=== PATIENT | female | born 1985 | race Caucasian/White ===

== ENCOUNTER 2018-11-23 13:07 | Outpatient (REF) | payer MEDICAID, SELFPAY ==
[2018-11-23 21:30] LABS: HCT 41.6 % (36.0-46.0); Mean Corp. HGB Concentration 33.7 g/dL (32.0-36.0); Mean Corpuscular Hemoglobin 30.8 pg (27.0-33.0); Mean Corpuscular Volume 91.6 fL (80-95); Mean Platelet Volume 10.6 fL (8.0-11.0); Platelet Count 224 x1000/uL (130-400); RBC 4.54 m/cumm (4.00-5.20); RBC Distribution Width 12.6 % (11.7-14.6); White Blood Cell Count 5.98 k/cumm (4.4-10.8)
[2018-11-23 21:57] LABS: ALT 23 U/L (12-78); AST 17 U/L (15-37); Alkaline Phosphatase 56 U/L (46-116); Anion Gap 10.6 mmol/L (3-11); BUN 12 mg/dL (7-18); Bilirubin, Total 0.6 mg/dL (0.2-1.0); CO2 25.4 mmol/L (21.0-32.0); CREATININE 0.74 mg/dL (0.55-1.02); Calcium 9.6 mg/dL (8.5-10.1); Chloride 102 mmol/L (98-107); Glucose 86 mg/dL (70-100); Sodium 138 mmol/L (136-145); Total Protein 7.2 g/dL (6.4-8.2)
== END 2018-11-23 13:27 ==
LOC: NCHCN 13:07
PROVIDERS: PCP Nurse Practitioner Family; Visit Provider Nurse Practitioner Family
DX: Z01.818 Encounter for other preprocedural examination (principal); Z13.228 Encounter for screening for other metabolic disorders; Z13.0 Encounter for screening for diseases of the blood and blood-forming organs and certain disorders involving the immune mechanism
CPT/HCPCS: 80053; 85027

== ENCOUNTER 2019-05-20 15:28 | Outpatient (REF) | payer BC, SELFPAY ==
[2019-05-21 13:40] LABS: Chlamydia Result Negative; GC Result Negative; Specimen Description CERVIX
== END 2019-05-20 15:48 ==
LOC: LBN 15:28
PROVIDERS: PCP Nurse Practitioner Family; Visit Provider Nurse Practitioner Women's Health
DX: Z11.3 Encounter for screening for infections with a predominantly sexual mode of transmission (principal)
CPT/HCPCS: 87491; 87591

== ENCOUNTER 2020-04-26 14:06 | Outpatient (REF) | payer BC, SELFPAY ==
[2020-04-28 13:03] LABS: COVID-19 RT-PCR Result NEGATIVE (Negative)
== END 2020-04-26 14:26 ==
LOC: NCHCN 14:06
PROVIDERS: PCP Nurse Practitioner Family; Visit Provider Nurse Practitioner Family
DX: J06.9 Acute upper respiratory infection, unspecified (principal)
CPT/HCPCS: U0003

== ENCOUNTER 2020-05-18 15:01 | Outpatient (REF) | payer BC, SELFPAY ==
[2020-05-19 13:56] LABS: Chlamydia Result Negative (Negative); GC Result Negative (Negative)
== END 2020-05-18 15:21 ==
LOC: LBN 15:01
PROVIDERS: PCP Nurse Practitioner; Visit Provider Nurse Practitioner Family
DX: R30.0 Dysuria (principal); Z11.3 Encounter for screening for infections with a predominantly sexual mode of transmission
CPT/HCPCS: 87077; 87491; 87591; 87086; 87186

== ENCOUNTER 2020-09-04 00:45 | Outpatient (CLI) | payer BC, SELFPAY ==
--- NOTE | 2020-09-04 | DI.US_ITS ---
EXAM: US PELVIS TRANSVAGINAL CLINICAL HISTORY: H/O EXPELLED 2 IUD'S,IUD COMPLICATION,T83.9XXA. TECHNIQUE: Transabdominal and transvaginal pelvic ultrasound was performed using standard protocol. COMPARISON: US PELVIS TRANSVAG from 06/23/2017 FINDINGS: KIDNEYS: Kidneys are symmetric in size. No evidence of renal calculi. No evidence of hydronephrosis. No renal mass or cyst identified. UTERUS: Findings are suggestive of a subseptate uterus. Position: Anteverted. Size: 7.7 long by 4.0 AP by 6.0 transverse cm Endometrium: 0.6 cm. Normal for patient's menstrual status. No intrauterine device (IUD) is identifie d sonographically. Myometrium: Unremarkable. Cervix: Unremarkable. OVARIES: Right: 4.9 x 2.4 x 2.6 cm Cyst or mass: Small follicular cysts are present. Left: 2.9 x 2 x 1.9 cm Cyst or mass: Small follicular cysts are present. DOPPLER: Color: Symmetric and uniform flow to both ovaries. No hyperemia. CUL-DE-SAC: Free fluid: None. Other: None. IMPRESSION: 1. Normal sonographic appearance of the kidneys. 2. No evidence of an IUD sonographically. 3. Findings suggestive of a subseptate uterus. 4. Unremarkable bilateral ovaries. DATA REPOSITORY:
== END 2020-09-04 01:05 ==
PROVIDERS: PCP Nurse Practitioner; Visit Provider Nurse Practitioner Family
DX: T83.89XA Other specified complication of genitourinary prosthetic devices, implants and grafts, initial encounter (principal); N83.02 Follicular cyst of left ovary; N83.01 Follicular cyst of right ovary
CPT/HCPCS: 76830; 76856

== ENCOUNTER → 2020-11-10 12:10 | Outpatient (REF) | payer BC, SELFPAY ==
--- NOTE | 2020-11-10 11:30 | PAPFT_PTH ---
PATIENT: Naomi Camacho LOC: [facility] U#:[id number] AGE/SX: 39/F ROOM: RE11/10/[address]: GUERRERO HendricksP : 1985 BED: DIS: SPEC #: [id number] RECD: 11/10/20 13:10 STATUS: MALLIKA REQ #: [id number] SRIRAM: 11/10/20 11:[address]: Gabriela Mock DEPT: [facility] Cytology RECD BY: Yasmine Diehl ENTERED: 11/10/20 13:10 SP TYPE: PAPFT OTHR DR: Susie Khan Tissues: 1 - CX/ENDOCX FOR PAP SMEARS Procedures: PAP THIN PREP/UVM Screening HPV DNA PROBE Comments: [id number]
[2020-11-13 14:59] LABS: Chlamydia Result Negative (Negative); GC Result Negative (Negative)
== END ==
LOC: LBN 12:10
PROVIDERS: PCP Nurse Practitioner; Visit Provider Nurse Practitioner Family
DX: Z11.3 Encounter for screening for infections with a predominantly sexual mode of transmission (principal); Z12.4 Encounter for screening for malignant neoplasm of cervix; Z11.51 Encounter for screening for human papillomavirus (HPV); R87.810 Cervical high risk human papillomavirus (HPV) DNA test positive
CPT/HCPCS: 87491; 87591; 88142; 87624

== ENCOUNTER 2021-01-16 16:38 | Outpatient (REF) | payer BC, SELFPAY ==
--- NOTE | 2021-01-16 14:25 | ENDOMET_PTH ---
PATIENT: Naomi Camacho LOC: [facility] U#:[id number] AGE/SX: 35/F ROOM: RE01/16/[address]: Yvonne Burnham DO : 1985 BED: DIS: 01/16/2021 SPEC #: [id number] RECD: 01/16/21 17:34 STATUS: MALLIKA REQ #: [id number] SRIRAM: 01/16/21 14:[address]: Yvonne Burnham DEPT: Surgical Specimen RECD BY: Yasmine Diehl ENTERED: 01/16/21 17:34 SP TYPE: Endomet OTHR DR: Susie Khan Tissues: 1 - ENDOMETRIUM BX/KEILA Procedures: GROSS AND MICRO LEVEL 4 Comments: [id number]
== END 2021-01-16 16:39 | disposition home or self-care (01) ==
LOC: LBN 16:38
PROVIDERS: PCP Nurse Practitioner; Visit Provider Obstetrics & Gynecology
DX: N85.8 Other specified noninflammatory disorders of uterus (principal); N93.8 Other specified abnormal uterine and vaginal bleeding
CPT/HCPCS: 88305

== ENCOUNTER 2021-02-19 03:20 | Outpatient (CLI) | payer BC, SELFPAY ==
[2021-02-19 12:35] LABS: Source Nasal/Nares
[2021-02-19 18:34] LABS: COVID-19 PCR Negative (Negative)
== END 2021-02-19 03:21 | disposition home or self-care (01) ==
LOC: LBO 03:20
PROVIDERS: PCP Nurse Practitioner; Visit Provider Obstetrics & Gynecology
DX: Z20.822 Contact with and (suspected) exposure to COVID-19 (principal); Z01.818 Encounter for other preprocedural examination
CPT/HCPCS: 87635

== ENCOUNTER 2021-02-19 04:30 | Outpatient (CLI) | payer BC, SELFPAY ==
[2021-02-19 11:16] LABS: Abs Immature Grans 0.03 10^3/uL (0.0-0.06); Absolute Basophil Count 0.03 10^3/uL (0.0-0.2); Absolute Eosinophil Count 0.21 10^3/uL (0.0-0.7); Absolute Lymphocyte Count 2.57 10^3/uL (1.2-3.4); Absolute Neutrophil Count 3.06 10^3/uL (1.2-6.7); Basophils % 0.5; Eosinophils % 3.2; HCT 38.6 % (36.0-46.0); HGB 13.2 g/dL (11.2-15.7); Immature Grans % 0.5; Lymphocytes % 38.9; MCH 30.6 pg (27.0-33.0); MCHC 34.2 % (32.0-36.0); MCV 89.4 fL (80-95); MPV 9.3 fL (8.0-11.0); Monocytes % 10.6; Neutrophils % 46.3; Nucleated RBC 0 %; Platelet Count 290 10^3/uL (130-400); RBC 4.32 10^6/uL (3.93-5.22); RDW 11.9 % (11.7-14.6); RDW-SD 39.2 fL
== END 2021-02-19 04:31 | disposition home or self-care (01) ==
LOC: LBO 04:30
PROVIDERS: PCP Nurse Practitioner; Visit Provider Obstetrics & Gynecology
DX: N93.8 Other specified abnormal uterine and vaginal bleeding (principal); Z01.818 Encounter for other preprocedural examination; Z01.812 Encounter for preprocedural laboratory examination
CPT/HCPCS: 36415; 86850; 86900; 86901; 85025

== ENCOUNTER 2021-02-21 10:15 | Inpatient (IN) | payer BC, SELFPAY ==
[2021-02-21] VITALS (17 sets, daily range): BP systolic 91–117; BP diastolic 55–79; PULSE 67–84; RESP 12–18; TEMP 36.2–37.1; O2SAT 95–99
[2021-02-21] MEDS: Lactated Ringers 1,000 ML 125 ML IV ×3 (07:05→18:08)
[2021-02-21] MEDS: CLINDAMYCIN 900 MG/50 ML BAG 50 MG IVPB (07:10)
[2021-02-21] MEDS: Bupivacaine 0.5% Pres-Free 30 ML VIAL (08:15)
--- NOTE | 2021-02-21 09:35 | UTER_PTH ---
PATIENT: Naomi Camacho LOC: U#:[id number] AGE/SX: 35/F ROOM: RE02/21/[address]: Yvonne Burnham DO : 1985 BED: A DIS: 02/22/2021 SPEC #: [id number] RECD: 02/21/21 12:51 STATUS: MALLIKA REQ #: [id number] SRIRAM: 02/21/21 09:[address]: Yvonne Burnham DEPT: Surgical Specimen RECD BY: Yasmine Diehl ENTERED: 02/21/21 12:52 SP TYPE: UTER OTHR DR: Susie Khan Tissues: 1 - UTERUS W OR W/O OVARIES(NOT TUMOR/PROLAPSE) Procedures: GROSS AND MICRO LEVEL 5 Comments: [id number]
--- NOTE | 2021-02-21 10:18 | ROE_ITS ---
Date of service: 02/21/21 Time of Service: 10:18 Operative Note Operative Note DATE OF PROCEDURE: 02/21/21 PRE-OP DIAGNOSIS: Dysfunctional uterine bleeding, nonresponsive to medical therapy POST-OP DIAGNOSIS: same PROCEDURE: Laparoscopically assisted vaginal hysterectomy with bilateral salpingectomy. Cystoscopy SURGEON: Yvonne Burnham ASSISTING SURGEON: Janna Starr ANESTHESIA TYPE: General LMA/ETT and Spinal Refer to Anesthesia Record ESTIMATED BLOOD LOSS: 100 PATHOLOGY: other (Portion of bilateral fallopian tubes, uterus, cervix) COMPLICATIONS: None Patient was transported to: PACU Patient's condition: stable Indications: Ongoing heavy menstrual bleeding, nonresponsive to medical therapy. Unable to be controlled with hormonal therapy. Cannot retain intrauterine device due to subseptate uterus Findings: Small, freely mobile, midline uterus that is somewhat boggy in nature. Normal-appearing fallopian tubes with evidence of previous tubal ligation. Normal-appearing ovaries bilaterally. Inclusion cyst at the vesicouterine peritoneum. Normal postoperative cystoscopy without evidence of injury to bladder, with ureters functioning appropriately Procedure Description: Patient is a 35-year-old female with ongoing abnormal uterine bleeding. She had a full thorough evaluation which included Pap smear which was normal and endometrial sampling also normal. This is been an ongoing issue for her and she request definitive therapy. The risk benefits alternatives of surgery were explained to the patient including risk of infection, bleeding, injury to surrounding organs, risk of anesthesia, need for open laparotomy. Full informed consent has been obtained. She is taken the operating suite with IV running where she is placed in the seated position and spinal anesthesia administered for postoperative pain control via intrathecal narcotics. She is then placed in dorsal supine position and endotracheal intubation performed for the administration of general anesthesia with ease. At this point she was placed in the modified dorsal lithotomy position in [facility] and prepped and draped in the usual sterile fashion. Exam under anesthesia revealed a uterus that was midline and mobile.. PAS stockings had been placed. Boston catheter was inserted for continuous bladder drainage. Weighted speculum was inserted to the posterior vaginal vault and a single-tooth tenaculum used to grasp the anterior lip of the cervix. Cervical os dilated VS found to 6 cm and a ZUMI uterine manipulator placed. Tenaculum and speculum were then both removed and attention was turned to the abdomen. Due to her previous abdominal plasty. Her umbilicus had been created. The superior edge of her umbilical incision was incised and intra- abdominal wall elevated. A varies needle was inserted directly into the abdomen for insufflation with CO2 gas to a maximum pressure of 15 mmHg. At this point a bladeless Optiview trocar was placed into the abdomen. Abdomen was found to be atraumatic. Uterus tubes and ovaries were visualized. At this point after infiltration of Marcaine in the right and left lower quadrant a second and third 5 mm trocar site were placed under direct visualization. At this point the uterus was elevated and portion of the left fallopian tube remnant was cautery transected and removed from the abdomen. The left round ligament was cautery transected and ligated allowing closure of the broad ligament. The utero- ovarian pedicle was identified clamped and cautery transected. The bladder flap was created with meticulous sharp dissection and vesicouterine peritoneum moved away from the lower uterine segment. There was noted to be a small inclusion cyst which was removed from the vesicouterine peritoneum in the anterior lateral position. At this point the uterine artery and vein were also cautery transected to assist in hemostasis. A elevator was used to elevate the portion of the remnant of the right fallopian tube which again was cautery transected and ligated and removed from the abdomen. Similar procedure was carried out on the right round ligament allowing access to the right broad ligament along with the right utero-ovarian ligament which was cautery transected and again ligated. The remainder of the vesicouterine peritoneum on the anterior portion of the broad ligament was sharply dissected away from the lower uterine segment. At this point all pedicles were inspected and found to be hemostatic and attention was turned to the vaginal vault. CO2 gas was released and weighted speculum placed in the posterior vaginal vault. Single-tooth tenaculum used to grasp the anterior lip of the cervix and Doe clamps were used to grasp the anterior and posterior lip of the cervix. At this point in a circumferential fashion with a Bovie cautery an incision was made. The posterior cul-de-sac was then entered sharply with a longbilled weighted speculum placed within. The right and left uterosacral cardinal complexes were grasped transected and suture ligated. Attention was then turned to the anterior cul-de-sac which was meticulously sharp sharply dissected and allowing entry to the anterior cul-de-sac. The remainder of the uterine pedicles were systematically grasped with Zeppelin clamps transected and ligated. This allowed delivery of the uterus and cervix through the vaginal vault. Pedicles were inspected and found to be hemostatic and the vaginal cuff was then closed in a horizontal fashion with 0 Vicryl suture in a running locked fashion and found to be hemostatic. Attention was returned to the abdomen at this point and abdomen irrigated with copious amounts of normal saline. All pedicles were found to be hemostatic. Ureters were identified and peristalsing appropriately. The hysterectomy portion of the procedure was terminated patient did receive 1 dose of indigo carmine and cystoscopy performed. There is no evidence of trauma or injury to the bladder. Both ureteric orifice ease had jets of blue urine functioning appropriately. Upon visualization of the. Procedure was terminated. The infraumbilical fascial incision was closed using 0 Vicryl suture in a simple interrupted fashion. Skin edges were reapproximated with 4-0 Monocryl in a subcuticular fashion and sterile dressings were placed. Patient was returned to the dorsal supine position and awoken anesthesia with ease. She had Boston catheter in place draining blue urine. EBL: 100 mL Complications: None apparent Findings: Small, boggy globular uterus consistent with adenomyosis. Remnants of normal-appearing fallopian tubes bilaterally. Normal ovaries bilaterally. Inclusion cyst of the anterior vesicouterine peritoneum which had been removed. Pathology: Cervix, uterus, portion of bilateral fallopian tubes.
[2021-02-21] MEDS: Normal Saline Flush 10 ML SYR IV ×3 (12:51→23:31)
[2021-02-21] MEDS: Ketorolac 15 MG/ML VIAL IVP ×3 (12:51→23:31)
--- NOTE | 2021-02-21 15:47 | W.PM.PROGNOT ---
Date of Service Date of service: 02/21/21 Time of Service: 15:47 Assessment and Plan Assessment and plan (1) S/P laparoscopic assisted vaginal hysterectomy (LAVH): Status: Acute Assessment and plan: Postoperative day 0 status post laparoscopically assisted vaginal hysterectomy with bilateral salpingectomy. Doing well. Anticipate normal postoperative course. CBC in the morning. Advance diet. Boston out this evening. Increase activity. Pain control as necessary. Anticipate discharge home tomorrow Subjective Subjective Patient reports: no new complaints and afebrile; denies flatus, vomiting and shortness of breath Interval history since last seen: Patient seen postoperative day #0. Her surgery went well this morning. We spent approximately 20 minutes discussing the findings, and surgical procedure. Her pain is well controlled. Boston catheter is in place. Vital signs are stable. Her appetite is good. Exam Const General: cooperative, healthy appearing, comfortable and no acute distress Eyes General: appearance normal, both eyes and all related structures Resp Effort & Inspection: normal respiratory effort Cardio Rate: regular rate Rhythm: regular rhythm GI Inspection: normal to inspection Palpation: soft Objective Last Vital Signs Temp 97.7 F 02/21/21 15:06 Pulse 76 02/21/21 15:06 Resp 16 02/21/21 15:06 BP 108/72 02/21/21 15:06 Pulse Ox 98 02/21/21 15:06
[2021-02-21] MEDS: Docusate Sodium 100 MG CAP PO (20:34)
[2021-02-21] MEDS: oxyCODONE 5 mg/Acetaminophen 325 mg TAB PO (23:31)
[2021-02-22] MEDS: Lactated Ringers 1,000 ML 125 ML IV (02:01)
[2021-02-22] MEDS: oxyCODONE 5 mg/Acetaminophen 325 mg TAB PO (04:12)
[2021-02-22 04:15] VITALS: BP 102/69; PULSE 72; RESP 16; TEMP 37; O2SAT 95
[2021-02-22] MEDS: Normal Saline Flush 10 ML SYR IV (06:13)
[2021-02-22] MEDS: Ketorolac 15 MG/ML VIAL IVP (06:14)
[2021-02-22 07:07] VITALS: BP 99/63; PULSE 69; RESP 17; TEMP 36.9; O2SAT 96
[2021-02-22 07:17] LABS: Abs Immature Grans 0.02 10^3/uL (0.0-0.06); Absolute Basophil Count 0.02 10^3/uL (0.0-0.2); Absolute Eosinophil Count 0.06 10^3/uL (0.0-0.7); Absolute Lymphocyte Count 3.22 10^3/uL (1.2-3.4); Absolute Monocyte Count 0.83 10^3/uL (0.1-0.8); Absolute Neutrophil Count 5.58 10^3/uL (1.2-6.7); Basophils % 0.2; Eosinophils % 0.6; HCT 32.6 % (36.0-46.0); HGB 11.1 g/dL (11.2-15.7); Immature Grans % 0.2; Lymphocytes % 33.1; MCV 91.1 fL (80-95); MPV 9.8 fL (8.0-11.0); Monocytes % 8.5; Neutrophils % 57.4; Nucleated RBC 0 %; Platelet Count 251 10^3/uL (130-400); RBC 3.58 10^6/uL (3.93-5.22); RDW-SD 40.3 fL; WBC 9.73 10^3/uL (4.4-10.8)
[2021-02-22] MEDS: Docusate Sodium 100 MG CAP PO (08:30)
--- NOTE | 2021-02-22 09:17 | W.PM.PROGNOT ---
Date of Service Date of service: 02/22/21 Time of Service: 09:17 Assessment and Plan Assessment and plan (1) S/P laparoscopic assisted vaginal hysterectomy (LAVH): Status: Acute Assessment and plan: Postoperative Status post laparoscopically assisted vaginal hysterectomy with bilateral salpingectomy. Doing well. Stable vital signs. Stable hemoglobin. Tolerating a regular diet and oral pain medication. Discharge home today. Subjective Subjective Patient reports: pain is less, tolerating a regular diet, voiding w/o difficulty and flatus; denies nausea, vomiting, shortness of breath and fever Interval history since last seen: Patient seen and examined postoperative day #1. She has been ambulating. Boston catheter has been out. Her pain is slightly increased after spinal anesthesia has worn off though well controlled with both Motrin and Percocet. She has been voiding without difficulty and tolerating regular diet. She is ready for discharge home today. Exam Const General: cooperative, healthy appearing, comfortable and no acute distress Eyes General: appearance normal, both eyes and all related structures Resp Effort & Inspection: normal respiratory effort Cardio Rate: regular rate Rhythm: regular rhythm GI Inspection: normal to inspection and incision (Clean dry intact, Band-Aids in place.) Palpation: not firm, no guarding, no masses and tender (Mild postoperative tenderness) Auscultation: normal bowel sounds Skin General skin exam: no rashes or lesions noted Extrem General: no clubbing, cyanosis or edema and no calf tenderness Objective Last Vital Signs Temp 98.4 F 02/22/21 07:07 Pulse 69 02/22/21 07:07 Resp 17 02/22/21 07:07 BP 99/63 L 02/22/21 07:07 Pulse Ox 96 02/22/21 07:07 Laboratory Results - last 24 hr 02/22/21 06:15 WBC 9.73 RBC 3.58 L Hgb 11.1 L D Hct 32.6 L MCV 91.1 MCH 31.0 MCHC 34.0 RDW 12.0 Plt Count 251 MPV 9.8 Immature Gran % 0.2 Neutrophils % 57.4 Lymphocytes % 33.1 Monocytes % 8.5 Eosinophils % 0.6 Basophils % 0.2 Nucleated RBC % 0 Absolute Neutrophils 5.58 Absolute Lymphocytes 3.22 Absolute Monocytes 0.83 H Absolute Eosinophils 0.06 Absolute Basophils 0.02
--- NOTE | 2021-02-22 09:24 | DSE_ITS ---
Date of service: 02/22/21 Time of Service: 09:25 DS: Diagnosis Discharge Diagnosis (1) S/P laparoscopic assisted vaginal hysterectomy (LAVH): Status: Acute Discharge Plan Disposition Patient Disposition: HOME Condition: Good Discharge Details Reason For Visit: LAVH Admit Date/Time: 02/21/21 10:15 Admit Provider: Yvonne Burnham Attending Provider: Yvonne Burnham Primary Care Provider: Susie Khan Hospital Course Hospital Course: Patient underwent laparoscopically assisted vaginal hysterectomy with bilateral salpingectomy. Her intraoperative course was uncomplicated. Cystoscopy performed to confirm bladder integrity and appropriate urinary jets of the ureteric orifice ease. She had uncomplicated postoperative course. She is d ischarged home postoperative day #1, ambulating, tolerating regular diet and oral pain medication with stable vital signs. Home Meds and New Rx's Prescriptions: New oxycodone-acetaminophen 5-325 mg Tablet 1 tab PO Q4H PRN PRNQty: 12 RF: 0 docusate sodium [Colace] 100 mg Capsule 100 mg PO BID Qty: 30 RF: 0 ibuprofen [IBU] 600 mg Tablet 600 mg PO Q6H PRN PRNQty: 40 RF: 0 Continued metformin [Glucophage] 500 MG tablet 1,000 mg PO BID Qty: 360 RF: 3 Citalopram Hydrobromide [Citalopram HBr] 10 MG tablet 20 mg PO DAILY Qty: 14 RF: 0 Discontinued norgestimate-ethinyl estradiol [Sprintec (28)] 0.25-35 mg-mcg tablet 1 tab PO DAILY Qty: 84 RF: 3 multivitamin 1 EACH capsule 1 ea PO DAILY RF: 0 Discharge Instructions Additional Instructions: Pelvic rest. No lifting greater than 10 pounds for 6 weeks Stand Alone Forms: DSU Post Gynecology Surgery Activity:: Activity as Tolerated Equipment/Supplies:: No Equipment Needed Diet:: As Tolerated Discharge Orders Discharge Orders: Discharge Order (Routine); Ordered 02/22/21 Ordered By: Yvonne Burnham DS: Summary Time Spent with Patient providing and/or coordinating discharge services: Less than 30 minutes Status at Discharge Functional status at discharge: independent ambulation Overall status at discharge: patient is progressing back to baseline Mental Status: mental status grossly normal Speech and Movement: speech and movement normal Mood: congruent mood Affect: normal affect Exam Narrative Exam Narrative: See physical exam from progress note dated 02/22/2021 Psych Mental Status: mental status grossly normal Speech and Movement: speech and movement normal Mood: congruent mood Affect: normal affect DS: Data Vitals/I&O Vitals and I&O: Vital Signs Temperature 98.4 F 02/22/21 07:07 Temperature Source Tympanic 02/22/21 07:07 Pulse 69 02/22/21 07:07 Pulse Rhythm Regular 02/22/21 07:24 Respiratory Rate 17 02/22/21 07:07 Respiratory Effort 02/22/21 07:24 Respiratory Depth Normal 02/22/21 07:24 Respiratory Pattern Normal 02/22/21 07:24 Blood Pressure 99/63 L 02/22/21 07:07 Pulse Oximetry 96 02/22/21 07:07 Respiratory End-tidal CO2 39 02/21/21 10:43 Oxygen Delivery Method Room Air 02/22/21 07:07 Oxygen Flow Rate 0 02/22/21 07:07 Pain Level 2 02/22/21 07:31 Intake & Output 02/21/21 02/21/21 02/22/21 11:59 23:59 11:59 Intake Total 820 / 1230 410 / 1230 1895.834 / 1895.834 Output Total 950 / 3850 2900 / 3850 1250 / 1250 Balance -130 / -2620 -2490 / -2620 645.834 / 645.834 Weight 170 lb 10.205 oz Intake: IV 750 / 760 10 / 760 1795.834 / 1795.834 Oral 70 / 470 400 / 470 100 / 100 Output: Urine 750 / 3650 2900 / 3650 1250 / 1250 Estimated Blood Loss 200 / 200 Other: Urine Color Indigo Yellow Pale Yellow Urine Appearance Clear Clear Clear Urine Odor Normal Normal Comment pt stated slight burning at the start of voiding after barr out Emesis Description None Voiding Methods Toilet Toilet Data Completed and Pending Labs on day of discharge: Labs from last 24 hours 02/22/21 06:15 WBC 9.73 RBC 3.58 L Hgb 11.1 L D Hct 32.6 L MCV 91.1 MCH 31.0 MCHC 34.0 RDW 12.0 Plt Count 251 MPV 9.8 Immature Gran % 0.2 Neutrophils % 57.4 Lymphocytes % 33.1 Monocytes % 8.5 Eosinophils % 0.6 Basophils % 0.2 Nucleated RBC % 0 Absolute Neutrophils 5.58 Absolute Lymphocytes 3.22 Absolute Monocytes 0.83 H Absolute Eosinophils 0.06 Absolute Basophils 0.02 PFSH Medical History Abnormal uterine bleeding Diabetes History of PCOS Surgical History H/O abdominoplasty History of tonsillectomy Previous section (08/25/14) 3 previous c/s, pt for R LTCS S/P laparoscopic assisted vaginal hysterectomy (LAVH) Family History Mother Hyperlipidemia Hypertension Maternal Aunt Brain cancer Metastasized from cervix - at 42 Social History Smoking/Tobacco Use Status: Never Smoking risk assessment performed?: Yes Alcohol Intake: current Alcohol Intake frequency: holidays/special occasions only Alcohol type: wine Drug use: Never Substance use type: does not use Details: alcohol: > 30 days Do you feel safe at home: Yes Do you feel safe in your relationship?: Yes Female Reproductive History Menstrual control method: permanent sterilization History History 5 Para 3 Hx # Term Pregnancies Multiple births Hx # Pregnancies Ectopic pregnancies AB induced Hx Number of Living Children AB spontaneous
== END 2021-02-22 10:16 | disposition home or self-care (01) | DRG 743 ==
LOC: MS 11:43
PROVIDERS: Admitting Provider Obstetrics & Gynecology; PCP Nurse Practitioner; Visit Provider Obstetrics & Gynecology
PROC: 0UT9FZZ Resection of Uterus, Via Natural or Artificial Opening With Percutaneous Endoscopic Assistance (ICD-10-PCS; CPT 58552; principal; 2021-02-21 07:30)
DX: N93.9 Abnormal uterine and vaginal bleeding, unspecified (principal); D25.0 Submucous leiomyoma of uterus; Q51.3 Bicornate uterus; E28.2 Polycystic ovarian syndrome
CPT/HCPCS: 58552; 52000; 36415; 81025; 99232; 99238; 85025; 88307; J1100; J1885; J2001; J2250; J2405; J2704; J3010

== ENCOUNTER 2022-05-22 11:21 | Outpatient (REF) | payer BC, SELFPAY ==
[2022-05-22 15:52] LABS: ALT 15 U/L (14-59); AST 14 U/L (15-37); Albumin 4.1 g/dL (3.4-5.0); Alkaline Phosphatase 54 U/L (46-116); BUN 12 mg/dL (7-18); Bilirubin, Total 0.3 mg/dL (0.2-1.0); CREATININE 0.7 mg/dL (0.55-1.02); Calcium 8.7 mg/dL (8.5-10.1); Calculated LDL 137 mg/dL (<100); Chloride 103 mmol/L (98-107); Cholesterol 211 mg/dL (<200); Glucose 92 mg/dL (74-106); HDL Cholesterol 65 mg/dL (40-60); Potassium 4.1 mmol/L (3.5-5.1); Sodium 137 mmol/L (136-145); TSH (W/Ref FT4) 1.54 uIU/mL (0.36-3.74); Total Protein 7.2 g/dL (6.4-8.2); Triglyceride 49 mg/dL (<150)
== END 2022-05-22 11:22 | disposition home or self-care (01) ==
LOC: NCHCN 11:21
PROVIDERS: PCP Nurse Practitioner; Visit Provider Nurse Practitioner Family
DX: Z00.00 Encounter for general adult medical examination without abnormal findings (principal); E28.2 Polycystic ovarian syndrome; Z86.32 Personal history of gestational diabetes; Z13.220 Encounter for screening for lipoid disorders
CPT/HCPCS: 80053; 80061; 84443

== ENCOUNTER 2024-07-01 22:34 | Outpatient (REF) | payer BC, SELFPAY ==
[2024-07-01 16:57] LABS: Abs Immature Grans 0.02 10^3/uL (0.0-0.06); Absolute Basophil Count 0.05 10^3/uL (0.0-0.2); Absolute Eosinophil Count 0.12 10^3/uL (0.0-0.7); Absolute Lymphocyte Count 2.16 10^3/uL (1.2-3.4); Absolute Monocyte Count 0.64 10^3/uL (0.1-0.8); Absolute Neutrophil Count 3.37 10^3/uL (1.2-6.7); Basophils % 0.8 %; Eosinophils % 1.9 %; HCT 42.8 % (36.0-46.0); HGB 14.5 g/dL (11.2-15.7); Immature Grans % 0.3 %; MCHC 33.9 % (32.0-36.0); MCV 92 fL (80-95); MPV 10.5 fL (8.0-11.0); Monocytes % 10.1 %; Neutrophils % 52.9 %; Platelet Count 252 10^3/uL (130-400); RBC 4.68 10^6/uL (3.93-5.22); RDW-SD 40.3 fL; WBC 6.36 10^3/uL (4.4-10.8)
[2024-07-01 17:53] LABS: Hemoglobin A1C 5.3 % (<5.7)
[2024-07-01 18:02] LABS: ALT 23 U/L (14-59); AST 12 U/L (15-37); Albumin 4.1 g/dL (3.4-5.0); Alkaline Phosphatase 53 U/L (46-116); Anion Gap 8.7 mmol/L (3-11); BUN 9 mg/dL (7-18); Bilirubin, Total 0.35 mg/dL (0.2-1.0); CO2 26.3 mmol/L (21.0-32.0); CREATININE 0.8 mg/dL (0.55-1.02); Calcium 8.7 mg/dL (8.5-10.1); Calculated LDL 122 mg/dL (<100); Chloride 105 mmol/L (98-107); Cholesterol 196 mg/dL (<200); Estimated GFR 96.06 (mL/min/1.73m2); Glucose 98 mg/dL (74-106); HDL Cholesterol 61 mg/dL (40-60); Potassium 4.1 mmol/L (3.5-5.1); Sodium 140 mmol/L (136-145); TSH (W/Ref FT4) 1.61 uIU/mL (0.36-3.74); Total Protein 7.2 g/dL (6.4-8.2); Triglyceride 68 mg/dL (<150); Vitamin B12 246 pg/mL (193-986); Vitamin D 25 Total 23.7 ng/mL (30-100)
--- OUTSIDE RECORDS SUMMARY | 2024-07-01 22:37 | XMS_ITS | Encounter Summary ---
Author Organization [facility] Address [address] [place] [id number] Care Team Providers Care Car Coupler Name Role Phone Unavailable Primary Care Provider Unavailabl e Encounter Details Date Type Department Care Team (Late st Contact Info) Description 05/12/2009 Orders Only [facility] Laboratory Services - [facility] [place] [place] [address], [place] [id number] Chico Bermudez MD [address] [place] [phone] Social History Tobacco Use Types Packs/Day Years Used Date Smoking Tobacco: Never Assessed Sex and Gender Information Value Date Recorded Sex Assigned at Not on file Gender Identity Not on file Sexual Orientation Not on file documented as of this encounter Plan of Treatment Not on file documented as of this encounter Procedures Procedure Name Priority Date/Time Associated Diagnosis Comments CYTOPATHOLOGY Routine 05/12/2009 0:00 EDT documented in this encounter Results * CYTOPATHOLOGY (05/12/2009 0:00 EDT) Pathology Report: CYTOPATHOLOGY REPORT ? Reports generated via electronic interface contain original data; ? however they are lacking the format of the original report. ? Caution should be taken when reading/interpreti ng unformatted reports. ? Name: ? MARTINEZ CAMACHO ? Accession #: ? [id number] ? : ? 1985 (Age: 23) ??F ?Collect Date: ? 05/12/2009 ? Location: ? [facility] ? Receive Date: ? 05/15/2009 ? Provider: ?CHICO BERMUDEZ MD ? Copy to: ? Specimen/Source: ?Pap Test, Cervix/Endocervix, ThinPrep Imaging System ? with manual evaluation ? Last Menstrual Period: ? 11/08 ? Other: ? HPVA - HPV testing requested if ASC-US on the current ThinPrep Pap test. ? SPECIMEN ADEQUACY ? Satisfactory for Evaluation ? - transformation zone component present ? GENERAL CATEGORIZATION ? Negative for Intraepithelial Lesion or Malignancy ? Document reviewed and electronically signed by: ? Kirsten Morales, SCT(ASCP) ? Report Date: ??05/18/2009 10:58 ? End of Report ? LUCINDA YOUNG 05/12/2009 05/15/2009 Chico Bermudez MD PATHOLOGY ORDERABLES LUCINDA YOUNG [address] [place] [address] documented in this encounter Visit Diagnoses Not on filedocumented in this encounter
--- OUTSIDE RECORDS SUMMARY | 2024-07-01 22:37 | XMS_ITS | Encounter Summary ---
Author Organization [facility] [place] [address] Care Team Providers Care Wire Mesh Gate Assembler Name Role Phone Megan Hayes APRN Primary Care Provider [phone] Reason for Visit * Auth/Cert Specialty Diagnoses / Procedures Referred By Omid funez Referred To Contact Diagnoses panni Procedures PRO SUCT ABHILASH LIPECTOMY, TRUNK PRO EXCISE EXCESS SKIN TISSUE, ABDOMEN, ADD-ON SUCTION ASSISTED LIPECTOMY,TRUNK (WRVU *) ABDOMINOPLASTY EXC,W/ UMBILICAL TRANSPOSITION, FASCIAL PLICATION (WRVU 17.04) Referral ID Status Reason Start Date Expiration Date Visits Re quested Visits Authorized [id number] 1 1 Encounter Details Date Type Department Care Team (Late st Contact Info) Description 2018 7:30 AM EST - 2018 10:58 AM EST Surgery [place] [id number] Otto Alexander MD [facility] [place] [address] SUCTION ASSISTED LIPECTOMY,TRUNK (WRVU 4.95) Social History Tobacco Use Types Packs/Day Years Used Date Smoking Tobacco: Never Smokeless Tobacco: Never Alcohol Use Standard Drinks/Week Comments Yes 7 (1 standard drink = 0.6 oz pur e alcohol) not while Sex and Gender Information Value Date Recorded Sex Assigned at Not on file Gender Identity Not on file Sexual Orientation Not on file documented as of this encounter Last Filed Vital Signs Vital Sign Reading Time Taken Comments Blood Pressure 110/75 2018 10:54 AM EST Pulse 75 2018 6:34 AM EST Temperature 36.8 ??C (98.2 ??F) 2018 1 0:54 AM EST Respiratory Rate 18 2018 10:5 4 AM EST Oxygen Saturation 100% 2018 10: 54 AM EST Inhaled Oxygen Concentration - - Weight 81.1 kg (178 lb 12.7 oz) 2018 6:34 AM EST Height 170.2 cm (5' 7) 2018 6:34 AM EST Body Mass Index 28 2018 6:34 AM EST documented in this encounter Discharge Summaries * Raisa Kyle PA - 2018 2:30 PM EST Images from the original note were not included. Plastic Surgery Service Inpatient Discharge Summary Patient Name: Spring Camacho Patient Age: 33 y.o. : 1985 Attending Physician: Otto Alexander MD Date of Admission: 2018 Date of Discharge: Code Status: 12/29/2018 Full Code Primary Diagnosis: Active Hospital Problems Diagnosis ??? Abdominal pannus Resolved Hospital Problems No resolved problems to display. History: History obtained through patient interview, review of relevant records, and/or discussion with referring provider. The following was taken from a Plastic Surgery Clinic Consult Note by Dr. Alexander on 09/28/18: Spring Camacho is a 32 y.o. woman seen in our office today for a possible breast mastopexy and abdominoplasty. She is unaccompanied for today's visit. She has been thinking about breast mastopexy for many years but has decided to proceed with surgical planning now because she has lost 105 pounds and feels ready to proceed with surgery. She lost this weight after adjusting her diet and exercise regimen. She reports being generally happy with her breast volume but would like her shape to be better. Her current weight has been stable for several months. She currently weighs 177 pounds. She hadanother consultation at [facility] about a year ago, but did not feel ready to proceed with surgery at that time. She has breast fed three children and has had five pregnancies. She feels her breasts have become more deflated and have descended after her pregnancies. She denies any abdominal bulging. ?? She has never had a mammogram. She has no known family history of breast cancer. She denies any breast masses or lumps. ?? She takes metformin and spironolactone for PCOS. She does not smoke, and drinks occasionally socially. 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 She has four adopted children. Recommendations: Breast mastopexy and abdominoplasty. We also discussed liposuction to her flanks. ?? The procedure of abdominoplasty was discussed and the resulting scars (transverse and periumbilical) were reviewed. We talked about complications of numbness, infection, hematoma, seroma, asymmetry, need for scar revision and delayed wound healing. We also discussed the additional risks of liposuction, which include irregularities of the skin, risk of skin loss, risk of blood clots or pulmonary complications. She was provided [facility] brochures and informed consent documents on both procedures. Chapo get her pricing information and proceed to book her in the main operating room if she wishes to proceed. If she has additional questions that arise I would be happy to see her again in the office. ?? However, I believe that her expectations are quite realistic. Past Medical History Past Medical History: Diagnosis Date ??? Depression with anxiety ??? Gestational diabetes ??? PCOS (polycystic ovarian syndrome) ??? hemorrhage 03/04/2015 At time of rCS and BTL, EBL 1000 ml ??? Septate uterus ??? Varicella Past Surgical History Past Surgical History: Procedure Laterality Date ??? SECTION x2 ??? DILATION AND CURETTAGE OF UTERUS x2 ??? PRO DELIVERY ONLY Bilateral 03/01/2015 @ DELIVERY performed by Griselda Willson MD at [facility] ??? PRO EXCISE EXCESS SKIN TISSUE, ABDOMEN, ADD-ON N/A 2018 ABDOMINOPLASTY EXC,W/ UMBILICAL TRANSPOSITION, FASCIAL PLICATION (WRVU 17.04) performed by Otto Alexander MD at [facility] ??? PRO LIGATE FALLOPIAN TUBE, N/A 03/01/2015 @FALLOPIAN TUBE(S), TRANSECTION OR LIGATION, ABD APPROACH, POST- performed by Griselda Willson MD at [facility] ??? PRO SUCT ABHILASH LIPECTOMY, TRUNK N/A 2018 SUCTION ASSISTED LIPECTOMY,TRUNK (WRVU *) performed by Otto Alexander MD at [facility] ??? TONSILLECTOMY AND ADENOIDECTOMY 2012 Procedures: 2018 Surgeon(s) and Role: * Otto Alexander MD - Primary * Nic Poe MD - Resident-Surgeon Napoleon: Procedure(s): SUCTION ASSISTED LIPECTOMY,TRUNK (WRVU *) ABDOMINOPLASTY EXC,W/ UMBILICAL TRANSPOSITION, FASCIAL PLICATION (WRVU 17.04) MODIFIER, PAL (POWER ASSISTED LIPOSUCTION) Hospital Course: Spring Camacho was admitted to the Plastic Surgery Service on 2018 for abdominoplasty, rectus plication, and liposuction of her bilateral flanks. On 12/28/18 she was taken to the operating room where the above procedures were performed. She tolerated the operation well and there were no apparent complications. She was admitted post-operatively for observation and management. Her hospital stay was uncomplicated. Spring Camacho was tolerating regular diet, ambulating and voiding without difficulty, afebrile with stable vital signs, and her pain was well controlled on oral pain medications when she was deemed ready for discharge on 12/29/2018. Updated Allergies/ADRs: Allergies Allergen Reactions ??? Penicillins CIS - Mouth swelling, difficulty breathing Pending Lab Data at Discharge: None Condition at Discharge: Stable Important Studies and Lab Data: Labs: No results for input(s): WBC, HGB, HCT, PLATELET, PT, INR, PTT in the last 72 hours. No results for input(s): NA, K, CL, CO2, BUN, CREATININE, GLUCOSE, CALCIUM, MAGNESIUM, PHOS in the last 72 hours. Microbiology: None Studies: None Discharge Examination: Last value Range last 12 hrs Temperature Temp: 36.8 ??C (98.2 ??F) Temp: [36.8 ??C (98.2 ??F)-36.9 ??C (98.4 ??F)] Heart Rate Heart Rate: 73 Heart Rate: [73-76] Blood Pressure BP: 96/68 BP: (96-104)/(61-68) Respiratory Rate Resp: 18 Resp: [16-18] SpO2 SpO2: 97 % SpO2: [96 %-97 %] Drains: Left lower abdomen: 7 cc Right lower abdomen: 115 cc Physical Exam: General: Resting comfortably, no acute distress. Neuro: Awake, alert, responds to questions appropriately. CN II-XII grossly intact, moving all fourextremities spontaneously. CV: Heart rate regular Pulm: Normal effort, no respiratory distress. Skin: Warm, dry. Abdomen: dressing are clean, dry, intact. Abdominal binder in place. No signs of hematoma. Bilateral drains serosanguinous output. Discharge to: Home If discharged to rehab facility, name of facility: N/A. Discharge Medications: The following medications have been prescribed for you. If you notice any adverse reactions to your medications, please contact your primary care physician immediately or go tothe nearest Emergency Department. Your Medications New Medications Dose Details HYDROmorphone 2 mg Tab Commonly known as: DILAUDID Take 1 tablet by mouth every 4 hours as needed for Pain (For pain greater than 7/10) for up to 10 doses. 2 mg Quantity: 10 tablet Refills: 0 Continued medications, unchanged Dose Details * citalopram 20 mg Tab Commonly known as: CeleXA Take 20 mg by mouth daily. 20 mg Refills: 0 * citalopram 10 mg Tab Commonly known as: CeleXA Take 10 mg by mouth daily. 10 mg Refills: 0 ibuprofen 600 mg Tab Commonly known as: ADVIL;MOTRIN Take 1 tablet by mouth every 6 hours as needed for Pain. 600 mg Quantity: 60 tablet Refills: 3 levonorgestrel 20 mcg/24 hr (5 years) Iud Commonly known as: MIRENA 1 each by Intrauterine route Continuous (Device). Removal date 05/2023 1 each Refills: 0 metFORMIN 1,000 mg Tab Commonly known as: GLUCOPHAGE take 1 tablet by mouth twice a day Refills: 0 spironolactone 25 mg Tab Commonly known as: ALDACTONE take 1 tablet by mouth twice a day Refills: 0 * This list has 2 medication(s) that are the same as other medications prescribed for you. Read thedirections carefully, and ask your doctor or other care provider to review them with you. Narcotics: Opioid [place] 10[place]06/2018 [place] Query Date 12/29/2018 [place] QUERY DATE: 12/29/18 Risk Assessment Category: Low (scored 2) Spring Camacho is getting a prescription opioid for the treatment of acute post-operative pain related to the surgical procedure during this encounter. Pt has been advised to take the smallest dose possible to control pain and as the pain improves to take smaller doses and increase the time between doses. In addition to this medication, pt was educated on the non-opioid pain medications that canbe taken for adjunct treatment of pain. Non-pharmacological treatments were also discussed that include but not limited to ice, elevation, and activity modification as appropriate. The Acute Opioid Therapy Informed Consent form has been completed during this encounter and sent tomedical records for scanning to chart. Follow-up Care & Plans: To make an appointment or for questions about scheduling, please contact our administrative offices at [phone]. For clinical questions, please call our nurses at [phone]. Both offices are open Friday thru Friday 8a - 5p. With emergencies after hours, call the hospital multifold operator at [phone] and ask for the Plastic Surgery Resident tone cabinet assembler. Scheduled Appointments: Future Appointments Date Time Provider Department Center 01/05/2019 10:00 AM NURSE, PLASTIC SURGERY Dalton Cao [facility] Outpatient Services/Studies: No discharge procedures on file. Instructions Given to Patient at Discharge: Patient Instructions ABDOMINOPLASTY DISCHARGE INSTRUCTIONS WHAT TO EXPECT: During the first 1 to 3 weeks, expect to feel tired from the anesthesia and in general, due to the healing process. Altered sensation (such as shooting or burning pain) or numbness is common after surgery. Normal ornear normal sensation should return within a few months but some areas may stay numb permanently. Generalized abdominal swelling above the incision may last for several weeks to months due to tissue fluid build-up. WOUND AND DRAIN CARE: Keep dressing clean, dry, and intact. You may remove your dressings after 48 hours. After that you may leave them open to air. If you feel more comfortable with dressings under the binder, then you may replace them to suit your comfort needs. Do not use ice or heat on your surgical site. Your hospital nurse will review your drain care. You will learn how to strip, measure, and record the total amount of fluid from each drain. Call the clinic at [phone] and schedule an appointment with the nurses to have your drains removed when the drainage is 30cc or less in a 24 hour period for 2 days in a row. BRIAN DRAIN CARE INSTRUCTIONS General Information: Drains help to keep fluid from collecting by removing the extra blood and fluid from under the skin. A drain is temporary. It stays in place until the drainage has slowed down or stopped. Your doctoror nurse will decide when each drain should be removed: This is usually after each drain has 30cc or less in 24 hours for 2 days in a row. When this happens, you should call the General Surgery Clinic to schedule an appointment with the nurses to have it/them removed. This is usually not painful and only takes a few seconds. How do I care for the drains at home? Pin your drains to your clothing by using a safety pin through the plastic loop on the top of the bulb. If the drain is not attached to your clothing, it may pull out from under your skin. Also, a drain usually feels more comfortable when it???s attached. To care for the drain at home, you will have to empty the drain, ???strip?? the drain tubing, and change the dressing if applicable. See the following pages for instructions on how to do this. What problems may I have with my drain? The bulb is not compressed- The bulb may not be squeezed tightly enough, the plug may not be closed securely, or the tube has slipped out a bit and is leaking. Follow the instructions on how to empty the drain. If the bulb remains expanded, then notify your doctor or nurse during business hours. ??? No drainage or sudden decrease in amount of drainage- This is usually due to clots in the drain. Follow the instructions on how to strip the drain tubing. ??? The tube accidentally falls out- If this happens, place a dry gauze dressing over the drain site and notify your doctor or nurse during business hours. ??? Increased redness, swelling, or heat around the tube insertion site- This may be a sign of infection. Take your temperature: if it is higher than 101F or 38.8C, call your doctor or nurse immediately. Otherwise, notify your doctor or nurse during business hours and keep the dressing clean and dry. Post-Surgical Drain Care: After surgery, you will have one or two drains, called a Kenan-Bryant (BRIAN) drain, placed near the incision. This device collects fluid, under suction, from your surgical area. The drain promotes healing and recovery, and reduces the chance of infection. The drain will be in place until the drainage slows enough for your body to reabsorb fluid on its own. While you are hospitalized the nursing staff will care for the drain and teach you to continue to do so at home. How to Empty Your BRIAN Drain Note: Wash your hands thoroughly before emptying your drain(s). 1. Have the plastic measuring cup from the hospital ready to collect and measure the drainage. Please measure the output at the same two times every 24 hours and record the amount. 2. Unpin the drain from your clothing. 3. 4. Open the top of the drain. Turn the drain upside down and squeeze the contents of the bulb into the measuring cup. Be sure to empty the bulb as completely as possible. Flush the contents in the toilet. 5. Use the drain output log chart to record the amount of drainage twice a day or any time the bulbis full. Record the total for 24 hours for each drain you have. 6. If you have more than one drain, remember to record the drainage from each drain separately. 7. To prevent infection, do not let the stopper or top of the bottle touch the measuring cup or anyother surface. 8. 9. Use one hand to squeeze all of the air from the drain. With the drain still squeezed, use your other hand to replace the top. This creates the suction necessary to remove the fluids from your body. 10. Pin the drain back on your clothing to avoid pulling it out accidently. 11. Wash your hands again. Remember to wash your hands before and after the procedure to reduce therisk of infection. Stripping the Tube Often the tube may become blocked with products of healing or clot. If you do not have drainage, then: ??? Hold the tube near where it is inserted in to the skin with your one hand. ??? Use the other hand to hold a pencil and gently squeeze the tubing with the pencil while moving it down toward the drain away from your skin. This forces the more sold material into the bulb for better drainage. ??? Repeat as necessary to start the draining again. Removal of the Tube ??? The tube may be removed once a single tube output is less than 30cc (1 oz.) for 24 hours. ??? Please call the office if the output becomes thicker or has a bad odor. Kenna-Bryant Drainage Record NAME: Date of Surgery: Date: Time: If more than one drain, which one: Drainage Amount (per drain) Total Amount (per drain; in 24 hours) If present, nonabsorbable stitches are removed in 2 weeks. Spitting sutures: Occasionally an area of redness and tenderness develops where a dissolving stitchbecomes irritated and pushes to the surface. If this occurs, it is not an emergency. You may clip the stitch with a clean scissor or call for an appointment with a nurse. You must avoid sunlight exposure to your incision(s). No tanning on incision lines for at least 6 months to minimize scarring. Do not use any over the counter ointments on the incisions postoperatively unless instructed by your provider. SHOWERING: OK to shower two days after surgery and get incisions wet. Gently wash your incisions with soap andwater. Pat dry with a clean towel. Do not submerge your surgical site under water until your incision is completely healed, at least two weeks. MEDICATIONS: You should resume your home medications. You do not need any antibiotics. ACTIVITIES: Rest frequently during the day, and limit visitors until you feel more up to it. You will be provided with an abdominal binder. Wear your abdominal binder 24 hours a day for 4-6 weeks, removing it briefly to shower. To reduce the strain on your incision, you should remain in a flexed/recliner chair position for about 5 days - this may take longer in some instances so let your body be your guide. Do not lift more than 5 pounds for 6 weeks and no more than 10-20 pounds for 3 months. You will be able to return to work in 4-6 weeks. No strenuous exercise (tennis, aerobics, jogging) for 3 months. Feel free to walk as much as you want. Walking improves circulation, respiratory function and healing. You will not be able to drive for 2-3 weeks or while taking you pain medication. You may wear your safety belt if you place a small pillow over your abdominal incision. No sexual activity for 6 weeks. No smoking for at least 2 weeks following your surgery. DIET: Regular healthy diet. DO???S AND DON???TS FOR THE NEXT 6 WEEKS: Do not drive a motor vehicle for 1-2 weeks or until you can handle the steering wheel without discomfort. Do not drive while taking your narcotic. Do not smoke or be around anyone who smokes for 2 weeks after your surgery this is because smoking delays healing and can lead to infection. Do not lift more than 5 pounds for 6 weeks. Do not participate in strenuous activities such as running or aerobics for 6 weeks. Do resume walking at a gentle pace. Protect your incisions from the sun for 6 months to 1 year. CALL MD IF: - Your incision opens up. - Your drain output suddenly increases or the color/consistency changes. - You have signs of infection such as: - temperature over 100.4F or 38C - redness or warmth spreading away from the incision lines after the first 48 hours - yellow pus-like or foul smelling drainage larger than dime size from the incisions or drainage sites - increased swelling or pain - You notice localized swelling this could be a collection of fluid under the skin at or near the incision site. During office hours: Friday - Friday 8am-5pm call [phone]. On weekends or after hours call [phone] and ask the multifold operator to page the plastic surgery resident tone cabinet assembler. PAIN MEDICATION: You may take tylenol and ibuprofen for pain. Take your narcotic pain medication as needed and try to taper of this as quickly as possible. Take a stool softener or laxative while you are on narcotic pain medication. CONTACT INFORMATION: During office hours (Friday through Friday 8 am to 5 pm): Call [phone]. On weekends or after hours: Call [phone] and ask the multifold operator to speak to the Plastic Surgery Resident on-call. FOLLOW-UP APPOINTMENTS: Your follow-up has been scheduled: Future Appointments Date Time Provider Department [place] 01/05/2019 10:00 AM NURSE, PLASTIC SURGERY Dalton Cao [address] [place] [address] CLIN General Instructions None Future Appointments and Orders Future Appointments and Orders Future Appointments Provider Department Dept Phone 01/05/2019 10:00 AM NURSE, PLASTIC SURGERY [facility] at [place] Arrive at: Track Machine Operator Repairer Area Call your doctor if: Please call your doctor immediately or go to an Emergency Department if you notice worsening pain not controlled by pain medications, uncontrolled headache, vision changes, chest pain, difficulty breathing, persistent nausea and vomiting, new redness or swelling in any extremities, new onset weakness or changes in sensation, or for any fevers greater than 100.4 or 38 F. Signed: ADAMARIS Narayanan 12/29/2018 Plastic Surgery Nursing Orders: - Abdominal incision check (also had lipo of flanks - check bruising) - Drain removal when output is less than 30 cc per day for 2 consecutive days (she declined need for VNA services at time of discharge) - Abdominal binder 4-6 weeks documented in this encounter Discharge Instructions * Patient Instructions* Raisa Kyle PA - 2018 10:49 AM EST Images from the original note were not included. ABDOMINOPLASTY DISCHARGE INSTRUCTIONS WHAT TO EXPECT: During the first 1 to 3 weeks, expect to feel tired from the anesthesia and in general, due to the healing process. Altered sensation (such as shooting or burning pain) or numbness is common after surgery. Normal ornear normal sensation should return within a few months but some areas may stay numb permanently. Generalized abdominal swelling above the incision may last for several weeks to months due to tissue fluid build-up. WOUND AND DRAIN CARE: Keep dressing clean, dry, and intact. You may remove your dressings after 48 hours. After that you may leave them open to air. If you feel more comfortable with dressings under the binder, then you may replace them to suit your comfort needs. Do not use ice or heat on your surgical site. Your hospital nurse will review your drain care. You will learn how to strip, measure, and record the total amount of fluid from each drain. Call the clinic at [phone] and schedule an appointment with the nurses to have your drains removed when the drainage is 30cc or less in a 24 hour period for 2 days in a row. BRIAN DRAIN CARE INSTRUCTIONS General Information: Drains help to keep fluid from collecting by removing the extra blood and fluid from under the skin. A drain is temporary. It stays in place until the drainage has slowed down or stopped. Your doctoror nurse will decide when each drain should be removed: This is usually after each drain has 30cc or less in 24 hours for 2 days in a row. When this happens, you should call the General Surgery Clinic to schedule an appointment with the nurses to have it/them removed. This is usually not painful and only takes a few seconds. How do I care for the drains at home? Pin your drains to your clothing by using a safety pin through the plastic loop on the top of the bulb. If the drain is not attached to your clothing, it may pull out from under your skin. Also, a drain usually feels more comfortable when it???s attached. To care for the drain at home, you will have to empty the drain, ???strip?? the drain tubing, and change the dressing if applicable. See the following pages for instructions on how to do this. What problems may I have with my drain? The bulb is not compressed- The bulb may not be squeezed tightly enough, the plug may not be closed securely, or the tube has slipped out a bit and is leaking. Follow the instructions on how to empty the drain. If the bulb remains expanded, then notify your doctor or nurse during business hours. ??? No drainage or sudden decrease in amount of drainage- This is usually due to clots in the drain. Follow the instructions on how to strip the drain tubing. ??? The tube accidentally falls out- If this happens, place a dry gauze dressing over the drain site and notify your doctor or nurse during business hours. ??? Increased redness, swelling, or heat around the tube insertion site- This may be a sign of infection. Take your temperature: if it is higher than 101F or 38.8C, call your doctor or nurse immediately. Otherwise, notify your doctor or nurse during business hours and keep the dressing clean and dry. Post-Surgical Drain Care: After surgery, you will have one or two drains, called a Kenan-Bryant (BRIAN) drain, placed near the incision. This device collects fluid, under suction, from your surgical area. The drain promotes healing and recovery, and reduces the chance of infection. The drain will be in place until the drainage slows enough for your body to reabsorb fluid on its own. While you are hospitalized the nursing staff will care for the drain and teach you to continue to do so at home. How to Empty Your BRIAN Drain Note: Wash your hands thoroughly before emptying your drain(s). 1. Have the plastic measuring cup from the hospital ready to collect and measure the drainage. Please measure the output at the same two times every 24 hours and record the amount. 2. Unpin the drain from your clothing. 3. 4. Open the top of the drain. Turn the drain upside down and squeeze the contents of the bulb into the measuring cup. Be sure to empty the bulb as completely as possible. Flush the contents in the toilet. 5. Use the drain output log chart to record the amount of drainage twice a day or any time the bulbis full. Record the total for 24 hours for each drain you have. 6. If you have more than one drain, remember to record the drainage from each drain separately. 7. To prevent infection, do not let the stopper or top of the bottle touch the measuring cup or anyother surface. 8. 9. Use one hand to squeeze all of the air from the drain. With the drain still squeezed, use your other hand to replace the top. This creates the suction necessary to remove the fluids from your body. 10. Pin the drain back on your clothing to avoid pulling it out accidently. 11. Wash your hands again. Remember to wash your hands before and after the procedure to reduce therisk of infection. Stripping the Tube Often the tube may become blocked with products of healing or clot. If you do not have drainage, then: ??? Hold the tube near where it is inserted in to the skin with your one hand. ??? Use the other hand to hold a pencil and gently squeeze the tubing with the pencil while moving it down toward the drain away from your skin. This forces the more sold material into the bulb for better drainage. ??? Repeat as necessary to start the draining again. Removal of the Tube ??? The tube may be removed once a single tube output is less than 30cc (1 oz.) for 24 hours. ??? Please call the office if the output becomes thicker or has a bad odor. Kenan-Bryant Drainage Record NAME: Date of Surgery: Date: Time: If more than one drain, which one: Drainage Amount (per drain) Total Amount (per drain; in 24 hours) If present, nonabsorbable stitches are removed in 2 weeks. Spitting sutures: Occasionally an area of redness and tenderness develops where a dissolving stitchbecomes irritated and pushes to the surface. If this occurs, it is not an emergency. You may clip the stitch with a clean scissor or call for an appointment with a nurse. You must avoid sunlight exposure to your incision(s). No tanning on incision lines for at least 6 months to minimize scarring. Do not use any over the counter ointments on the incisions postoperatively unless instructed by your provider. SHOWERING: OK to shower two days after surgery and get incisions wet. Gently wash your incisions with soap andwater. Pat dry with a clean towel. Do not submerge your surgical site under water until your incision is completely healed, at least two weeks. MEDICATIONS: You should resume your home medications. You do not need any antibiotics. ACTIVITIES: Rest frequently during the day, and limit visitors until you feel more up to it. You will be provided with an abdominal binder. Wear your abdominal binder 24 hours a day for 4-6 weeks, removing it briefly to shower. To reduce the strain on your incision, you should remain in a flexed/recliner chair position for about 5 days - this may take longer in some instances so let your body be your guide. Do not lift more than 5 pounds for 6 weeks and no more than 10-20 pounds for 3 months. You will be able to return to work in 4-6 weeks. No strenuous exercise (tennis, aerobics, jogging) for 3 months. Feel free to walk as much as you want. Walking improves circulation, respiratory function and healing. You will not be able to drive for 2-3 weeks or while taking you pain medication. You may wear your safety belt if you place a small pillow over your abdominal incision. No sexual activity for 6 weeks. No smoking for at least 2 weeks following your surgery. DIET: Regular healthy diet. DO???S AND DON???TS FOR THE NEXT 6 WEEKS: Do not drive a motor vehicle for 1-2 weeks or until you can handle the steering wheel without discomfort. Do not drive while taking your narcotic. Do not smoke or be around anyone who smokes for 2 weeks after your surgery this is because smoking delays healing and can lead to infection. Do not lift more than 5 pounds for 6 weeks. Do not participate in strenuous activities such as running or aerobics for 6 weeks. Do resume walking at a gentle pace. Protect your incisions from the sun for 6 months to 1 year. CALL MD IF: - Your incision opens up. - Your drain output suddenly increases or the color/consistency changes. - You have signs of infection such as: - temperature over 100.4F or 38C - redness or warmth spreading away from the incision lines after the first 48 hours - yellow pus-like or foul smelling drainage larger than dime size from the incisions or drainage sites - increased swelling or pain - You notice localized swelling this could be a collection of fluid under the skin at or near the incision site. During office hours: Friday - Friday 8am-5pm call [phone]. On weekends or after hours call [phone] and ask the multifold operator to page the plastic surgery resident tone cabinet assembler. PAIN MEDICATION: You may take tylenol and ibuprofen for pain. Take your narcotic pain medication as needed and try to taper of this as quickly as possible. Take a stool softener or laxative while you are on narcotic pain medication. CONTACT INFORMATION: During office hours (Friday through Friday 8 am to 5 pm): Call [phone]. On weekends or after hours: Call [phone] and ask the multifold operator to speak to the Plastic Surgery Resident on-call. FOLLOW-UP APPOINTMENTS: Your follow-up has been scheduled: Future Appointments Date Time Provider Department Center 01/05/2019 10:00 AM NURSE, PLASTIC SURGERY Dalton Cao [address] [place] [address] CLIN documented in this encounter Medications at Time of Discharge Medication Sig Dispensed Refills Start Date End Date levonorgestrel (MIRENA) 20 mcg/24 hr (5 years) IUD 1 each by Intrauterine route Continuous (Device). Removal date 05/2023 citalopram (CELEXA) 20 mg Tablet Take 20 mg by mouth daily. citalopram (CELEXA) 10 mg Tablet Take 10 mg by mouth daily. metFORMIN (GLUCOPHAGE) 1,000 mg Tablet take 1 tablet by mouth twice a day 0 10/14/2017 spironolactone (ALDACTONE) 25 mg Tablet take 1 tablet by mouth twice a day 0 09/15/2017 ibuprofen (ADVIL;MOTRIN) 600 mg Tablet Take 1 tablet by mouth every 6 hours as needed for Pain. 60 tablet 3 03/04/2015 HYDROmorphone (DILAUDID) 2 mg Tablet Take 1 tablet by mouth every 4 hours as needed for Pain (For pain greater than 7/10) for up to 10 doses. 10 tablet 12/29/2018 01/04/2019 documented as of this encounter Progress Notes * Melanie Erickson, RN - 12/29/2018 10:07 AM EST VS stable, pt very pleasant, alert and oriented x4, reports that abdominal incisional pain is well controlled with current tylenol and dilaudid dosing. Pt has been up and ambulating around unit, tolerating activity well. Pt medically ready for discharge to home. AVS reviewed with patient, , reviewed drain care, medication changes, activity restrictions. No questions/concerns verbalized at this time. Pt left facility via wheelchair,accompanied by SOLE CEMENTER. * Otto Alexander MD - 12/29/2018 7:15 AM EST Plastic Surgery Service Inpatient Progress Note ID: Spring Camacho is a 33 y.o. female s/p abdominoplasty, rectus plication and flank liposuction 12/28. S/IE: -tolerating regular diet -ambulating and voiding without concern -with questions about drain output. Reassured that it is normal and ok for one drain to put out more than the other given location of drains -received dose of lovenox last night Vitals: Last value Range last 24 hrs Temperature Temp: 36.9 ??C (98.4 ??F) Temp: [36.8 ??C (98.2 ??F)-37 ??C (98.6 ??F)] Heart Rate Heart Rate: 75 Heart Rate: [68-80] Blood Pressure BP: 98/61 BP: (98-117)/(61-85) Respiratory Rate Resp: 16 Resp: [9-18] SpO2 SpO2: 96 % SpO2: [94 %-100 %] Intake and Output: Last 12/28 0701 - 12/29 0700 In: 2360 [P.O.:360; I.V.:2000] Out: 2222 [Urine:2100] Drains: Left lower abdomen: 7 cc Right lower abdomen: 115 cc Physical Exam: General: Resting comfortably, no acute distress. Neuro: Awake, alert, responds to questions appropriately. CN II-XII grossly intact, moving all fourextremities spontaneously. CV: Heart rate regular Pulm: Normal effort, no respiratory distress. Skin: Warm, dry. Abdomen: dressing are clean, dry, intact. Abdominal binder in place. No signs of hematoma. Bilateral drains serosanguinous output. Labs: No results for input(s): WBC, HGB, HCT, PLATELET in the last 168 hours. No results for input(s): PT, PTT, INR in the last 168 hours. No results for input(s): NA, K, CL, CO2, BUN, CREATININE, GLUCOSE in the last 168 hours. Assessment: Spring Camacho is a 33 y.o. female s/p abdominoplasty, rectus plication and flank liposuction 12/28. Her dressings remain intact, she is ambulating, tolerating regular diet and her pain iswell controlled on oral pain medications. She is appropriate for discharge to home today. Plan: - Antibiotics: None - Pain management: Tylenol and Dilaudid. Ok to start Ibuprofen - Maintain abdominal binder - Keep abdominal dressings in place until tomorrow (12/30) - Diet: Regular diet. - Activity: Keep waist flexed when ambulating and in bed. Encourage OOB - Follow-up as scheduled below: Future Appointments Date Time Provider Department Center 01/05/2019 10:00 AM NURSE, PLASTIC SURGERY Dalton Cao [facility] [place] [facility] Dispo: -[facility]: services not required Code Status: Full Code ADAMARIS Narayanan Plastic Surgery Team Pager: [phone] 12/29/2018 Attending: Plan discussed and agree as documented. Otto Alexander MD Plastic Surgery * Nic Poe MD - 2018 4:02 PM EST Plastic Surgery Service Post-Op Progress Note ID: Spring Camacho ( ) is a 33 y.o. female admitted on 2018 now s/p abdominoplasty. Subjective: Patient states that her pain well controlled and she is not experiencing SOB, chest pain, nausea, or vomiting. She did have some nausea earlier when she got up but is feeling fine now. She ate lunch. She has voided. Vitals: Last value Range last 8hrs Temperature Temp: 36.9 ??C (98.4 ??F) Temp: [36.8 ??C (98.2 ??F)-37 ??C (98.6 ??F)] Heart Rate Heart Rate: 68 Heart Rate: [68-80] Blood Pressure BP: 110/69 BP: (102-117)/(69-85) Respiratory Rate Resp: 16 Resp: [9-18] SpO2 SpO2: 100 % SpO2: [94 %-100 %] I/O: I/O this shift: In: 2000 [I.V.:2000] Out: 970 [Urine:900; Other:70] R 70 L 0 Physical Exam: General: Resting comfortably, no acute distress. Neuro: Awake, alert, responds to questions appropriately. CN II-XII grossly intact, moving all fourextremities spontaneously. CV: RRR. Pulm: Normal effort, no respiratory distress. Skin: warm, dry. Abdomen: dressing are clean, dry, intact. No signs of hematoma. Bilateral drains serosang. Labs: None Assessment: Spring Camacho is a 33 y.o. female admitted on 2018 now s/p abdominoplasty, hemodynamically stable, tolerating PO, pain well controlled. Plan: - tylenol and dilaudid for pain - Diet: Regular diet - mIVFs: HLIV tonight - DVT prophylaxis: SCDs and lovenox tonight - antibiotics: none Dispo: - Home in AM Code Status: Full Code Nic Poe MD Plastic Surgery, PGY-5 2018 4:02 PM * Melanie Hodges RN - 2018 1:08 PM EST 100 patient felt urge to void. Patient slightly dizzy/light headed upon sitting on edge of bed. Resolved after a few minutes of sitting up. Patient ambulated with 2 assist, waist bend forward. After about 30 FT patient began to become dizzy again. Patient able to ambulate to bathroom. Patient feel urge to void, not able to void at this time. Dizziness/lightheadedness resolved at this time. Patient felt she might be able to void if she ambulated a bit. Patient ambulated with 2 assist and with 20FT again became dizzy, light headed, weakness, nausea. Patient placed in cardiac chair and brought to room, 2 assist. Resolved within a few minutes. VSS, IV zofran given. BS for 315cc BRIAN output on RTside 40cc. Patient will attempt later * Melanie Hodges RN - 2018 12:04 PM EST 1150 Report taken from Nay PONCE in PACU Pt arrived at 1204 [address] Bed Pt identified with id band and per patient Patient hooked up to monitors and o2 attached with alarms set per protocols. call fry within reach At time of transfer: Neuro: Patient is neurologically intact, A&Ox4, neuro unchanged. VS: VSS Cardiac: no SOB, GORDON, CP Respiratory: Lung sounds clear, Patient is on RA GI: Bowel soundsnot audible ,soft, tender. : [place] d/c at 1045 Due to void at 1445 Nutrition & PO Intake: regular diet, taking pills whole w/ thin liquid, Skin: incision(s) transverse lower abdominal mediport tapedrsgs C/D/I, Otherwise skin C/D/I, No sign of PU or breakdown. Devices/drains: BRIAN, bilateral abdominal Activity: As tolerated, patient has not been OOB yet. HOB above 30 degrees at all times Pain: 2/10 Vascular Access: IV in RUE no s/s of infection, inflammation, infiltration. Neurovascular: Radial and dorsalis pulses normal, 5/5 strengths.No numbness or tingling, Psychosocial: family bedside Patient belongs with Patient/ family. Oriented to room, staff, use of call light. Patient verbalized/demonstrated understanding. Plan of care, treatments, goals, tests, services written on white board and discussed with patient/family for discharge readiness. Assistance [level of assistance required for transfers and ambulation]: At baseline patient is independent Patient-specific fall risk factors per assessment/individualized fall prevention interventions: fall risk precautions initiated. Patient is cooperative, POD #0, receiving pain medication. Patient hastubes and lines. Patient able to reliably summon for assistance Bed in low position. Bed alarms with 3 side rails raised. Tolieting offered. Bathing/hygeine/dressing assistance provided while encouraging independence. Environment clear of obstacles/tripping hazard. Lighting provided/adjusted. Patient instructed in use of call fry. call fry within reach at alltimes. Patient will remain free from falls this shift. Supervision [direct monitoring required during toileting and ADLs]: At baseline patient is independent with ADL's, currently patient is hands on assist with ADL's when patient is out of bed, Surveillance [continuous indirect monitoring]: Purposeful hourly rounding done, pulse oximetry, room near nurses station, call fry within reach, Masimo, family at bedside, Patient-specific fall prevention interventions for sensory deficits provided, if applicable: N/A * Nay Fournier RN - 2018 11:55 AM EST Pt states she feels well. Abd binder on. Areli po sips. Report to Melanie in [facility]. documented in this encounter H&P Notes * Otto Alexander MD - 2018 7:00 AM EST PLASTIC SURGERY INTERVAL H&P CC: abdominal pannus S: Spring Nora Camacho's condition is unchanged since H&P originally performed. Denies any new ED visits, hospitalizations, trauma, or new events. Overall the patient has been doing well and now presents for abdominoplasty w rectus plication and flank liposuction. Past Medical History: Diagnosis Date ??? Depression with anxiety ??? Gestational diabetes ??? PCOS (polycystic ovarian syndrome) ??? hemorrhage 03/04/2015 At time of rCS and BTL, EBL 1000 ml ??? Septate uterus ??? Varicella Past Surgical History: Procedure Laterality Date ??? SECTION x2 ??? DILATION AND CURETTAGE OF UTERUS x2 ??? PRO DELIVERY ONLY Bilateral 03/01/2015 @ DELIVERY performed by Griselda Willson MD at [facility] ??? PRO LIGATE FALLOPIAN TUBE, N/A 03/01/2015 @FALLOPIAN TUBE(S), TRANSECTION OR LIGATION, ABD APPROACH, POST- performed by Griselda Willson MD at [facility] ??? TONSILLECTOMY AND ADENOIDECTOMY 2013 Allergies Allergen Reactions ??? Penicillins CIS - Mouth swelling, difficulty breathing No current facility-administered medications on file prior to encounter. Current Outpatient Medications on File Prior to Encounter Medication Sig Dispense Refill ??? citalopram (CELEXA) 20 mg Tablet Take 20 mg by mouth daily. ??? citalopram (CELEXA) 10 mg Tablet Take 10 mg by mouth daily. ??? metFORMIN (GLUCOPHAGE) 1,000 mg Tablet take 1 tablet by mouth twice a day 0 ??? spironolactone (ALDACTONE) 25 mg Tablet take 1 tablet by mouth twice a day 0 ??? ibuprofen (ADVIL;MOTRIN) 600 mg Tablet Take 1 tablet by mouth every 6 hours as needed for Pain.60 tablet 3 ??? levonorgestrel (MIRENA) 20 mcg/24 hr (5 years) IUD 1 each by Intrauterine route Continuous (Device). Removal date 05/2023 Family History Problem Relation Age of Onset ??? Cancer Paternal Aunt ??? Colorectal Cancer Paternal Grandmother ??? Heart Disease Paternal Grandfather 40s ??? Breast Cancer Neg Hx Social History Socioeconomic History ??? Marital status: Spouse name: Not on file ??? Number of children: Not on file ??? Years of education: Not on file ??? Highest education level: Not on file Social Needs ??? Financial resource strain: Not on file ??? Food insecurity - worry: Not on file ??? Food insecurity - inability: Not on file ??? Transportation needs - medical: Not on file ??? Transportation needs - non-medical: Not on file Occupational History ??? 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 Smoking status: Never Smoker ??? Smokeless tobacco: Never Used Substance and Sexual Activity ??? Alcohol use: Yes Alcohol/week: 4.2 oz Types: 7 Glasses of wine per week Comment: not while ??? Drug use: No ??? Sexual activity: Yes Partners: Male Other Topics Concern ??? Not on file Social History Narrative ??? Not on file Review of Systems: Constitutional: denies fever, chills Skin: denies rashes or skin changes HEENT, CV, Resp, GI, , Neuro: negative O: Patient Vitals for the past 24 hrs: BP Temp Pulse Resp SpO2 Height Weight 12/28/18 0634 116/82 36.9 ??C (98.4 ??F) 75 16 99 % 170.2 cm (5' 7) 81.1 kg (178 lb 12.7 oz) NAD, A&Ox3 Non-labored respirations, clear to auscultation bilaterally Regular rate and rhythm Site: abdomen and flanks AP: 33 y.o. female with panni. - After extensive discussion of the risks, benefits, and alteratives of surgical intervention, the patient consented to proceed with surgery. - IV antibiotics ordered - Proceed to OR for: Procedure(s): SUCTION ASSISTED LIPECTOMY,TRUNK (WRVU *) ABDOMINOPLASTY EXC,W/ UMBILICAL TRANSPOSITION, FASCIAL PLICATION (WRVU 17.04) MODIFIER, PAL (POWER ASSISTED LIPOSUCTION) No flowsheet data found. [place] QUERY DATE: 12/28/18 Risk Assessment Category: Nic Camacho is getting a prescription opioid for the treatment of acute post-operative pain related to the surgical procedure during this encounter. Pt has been advised to take the smallest dose possible to control pain and as the pain improves to take smaller doses and increase the time between doses. In addition to this medication, pt was educated on the non-opioid pain medications that canbe taken for adjunct treatment of pain. Non-pharmacological treatments were also discussed that include but not limited to ice, elevation, and activity modification as appropriate. The Acute Opioid Therapy Informed Consent form has been completed during this encounter and sent tomedical records for scanning to chart. Nic Poe MD Plastic Surgery, PGY-5 Attending: Pt seen and examined with Dr Poe. Her mother was present. We discussed all plans for today. We discussed potential risks and complications which include but are not limited to: Pain, bleeding, infection, scarring, asymmetry, hematoma, seroma, poor cosmetic outcome, failure ofprocedure, possible need for revision, damage to adjacent structures. I agree with the plan as outlined. Otto Alexander MD Plastic Surgery documented in this encounter Miscellaneous Notes * Plan of Care - Sherri Burnham RN - 12/29/2018 5:16 AM EST Problem: Patient Care Overview Goal: Plan of Care Review Outcome: Ongoing (Interventions Implemented as Appropriate) 12/28/18 1930 12/29/18 0508 Plan of Care Review Progress -- improving Coping/Psychosocial Plan Of Care Reviewed With patient -- OUTCOME EVALUATION NOTE: OUTCOME SUMMARY: Pt alert and oriented throughout shift. Pt's pain controlled with scheduled and PRN pain meds. Incision c/d/i, abdominal binder in place. Up to bathroom multiple times. Fall precautions maintained. PLAN MOVING FORWARD: Pt anticipating d/c home tomorrow INDIVIDUALIZED FALL PREVENTION INTERVENTIONS: Patient-specific fall risk factors per assessment: pain Assistance: Independent Supervision: Independent Surveillance: Bed locked in low position, call fry within reach, purposeful hourly rounding, clutter free environment Patient-specific fall prevention interventions for sensory deficits provided: Yes CPG GOAL OUTCOME EVALUATION: Continue care plan as documented. * Op Note - Otto Alexander MD - 2018 10:38 AM EST [facility] [place] Operative Note Patient Name: Spring Camacho : [id number] MR#: [id number] Case Date: 2018 Surgeon: Surgeon(s) and Role: * Otto Alexander MD - Primary * Nic Poe MD - Resident-Surgeon Napoleon Registered Nurse Beekeeper Farmer: Ruth Connolly RN Preoperative diagnosis: panni Postoperative diagnosis: panni Procedure(s) (LRB): SUCTION ASSISTED LIPECTOMY,TRUNK (WRVU *) (N/A) ABDOMINOPLASTY EXC,W/ UMBILICAL TRANSPOSITION, FASCIAL PLICATION (WRVU 17.04) (N/A) MODIFIER, PAL (POWER ASSISTED LIPOSUCTION) (N/A) Findings: panniculus 1.655 kg, fascial plication, 300cc lipo total from bilateral flanks Anesthesia: General Estimated Blood Loss: 100ml Specimens removed during surgery: None Drains: bilateral 19F duane Surgical Closure: Primary Closure - skin incision is completely closed without any wires, ernesto, drains or other devices Disposition: awakened from anesthesia, extubated and taken to the recovery room in a stable condition, having suffered no apparent untoward event. Condition: doing well without problems (Please see the Surgical Encounter Summary for any Implant and Specimen details pertinent to this patient.) HPI/Surgical Indications: 33F s/p four pregnancies with excess abdominal skin presented to clinic for consultation regarding improvement of her abdominal contour. We discussed abdominoplasty with umbilical transposition and fascial plication as well as bilateral liposuction of the flanks to restorea sense of curvature to the flanks. This morning we reviewed the surgical plan and we discussed that this surgery will not improve her abdominal stria or reduce her abdominal thickness which is due to abdominal adiposity. She agreed and desired to proceed. A surgical consent was signed. Procedure Description: The patient was marked in the preoperative area in the standing and sitting position and all risks and post-operative care reviewed. A preoperative dose of antibiotics was given. The patient was thenbrought to the operating room where she was placed in the supine position and was prepped and draped in the standard sterile fashion. A time-out was performed, SCDs were placed, and general anesthesia was induced. We began by infiltrating tumescent solution into the flanks where we planned to perform liposuction. We then began the abdominoplasty while we allowed time for the vasoconstrictive effects of the tumescent solution to take effect. A total of 400cc solution was used. The inferior skin incision was made with a #10 blade and was extended down to the deep fascia with the electrocautery. The abdominal flap was undermined to just below the umbilicus. The umbilicus wasmarked and a perumbilical incision was then made with a 15-blade and the umbilical stalk developed with Scotia scissor dissection down to the fascia. Centrally, the integrity of the umbilical stalk wasprotected. A vicryl stitch was placed at the 12 o'clock position of the umbilicus as a marking stitch. We then continued undermining the abdominal flap centrally over the rectus muscles up to the level of the xiphoid. Rectus fascial plication was then performed with 0-vicryl interrupted sutures and reinforced with arunning 0-PDS suture. At this point we performed the bilateral flank liposuction through the existing incision. A power-assisted device was used and a three-hole cannula was used to extract 200cc of lipoaspirate from eachside. This was focued in the area marked in the standing position pre-operatively. The bed was then flexed and the flap split in the midline and pulled inferiorly and the extent of resection planned without any tension on the closure. The superior excisional line was then marked toapproximately the inferior aspect of the umbilicus, cut and the excess skin removed. The entire surface of the abdomen was copiously irrigated and hemostasis was achieved with electrocautery. The superior skin flap was approximated to the lower incision in the midline using rochelle. In order to not close with excess tension the umbilical defect was closed vertically in the midline to create a T junction. The new site for the umbilicus was determined, an circular incision made and deepened through the abdominal flap and the previously placed marking suture brought out. Two 19F Duane drains were placed in the wound and brought out through the end of the wound incision. The drains wereeach secured with 2-0 Prolene sutures. Hemostasis at each drain site and at the umbilical site was verified. Closure of the abdomen was then undertaken with a deep layer of 0 Vicryl in Fanny's fascia, Insorb rochelle, and finally a running subcuticular of 3-0 Monocryl. Completion of the umbilical inset was done with deep dermal 4-0 PDS sutures and 4-0 plain gut suture. All sponge and needle counts were correct. The wound was dressed with a sterile dressing and the patient placed in an abdominal binder. The patient tolerated the procedure well and there were no immediate complications.?? Infection Bundle used? No Attestation: Case Date: 2018 I was present and I participated during the entire procedure (does not need to include opening and closing). OTTO ALEXANDER MD 12/29/2018 * Brief Op Note - Nic Poe MD - 2018 10:32 AM EST Brief Operative Note Patient Name: Spring Caamcho : [id number] MR#: [id number] Case Date: 2018 Surgeon: Surgeon(s) and Role: * Otto Alexander MD - Primary * Nic Poe MD - Resident-Surgeon Napoleon * [facility] Preoperative diagnosis: panni Postoperative diagnosis: panni Procedure(s) (LRB): SUCTION ASSISTED LIPECTOMY,TRUNK (WRVU *) (N/A) ABDOMINOPLASTY EXC,W/ UMBILICAL TRANSPOSITION, FASCIAL PLICATION (WRVU 17.04) (N/A) MODIFIER, PAL (POWER ASSISTED LIPOSUCTION) (N/A) Anesthesia: General Findings: panniculus 1.655 kg, fascial plication, 300cc lipo total from bilateral flanks Complications: none apparent Estimated Blood Loss: 100ml Specimens removed during surgery: None Fluids: Intraprocedure Crystalloid Total Lactated Ringers Volume (mL) 1000 mL PRBCs: none (See Anesthesia Record/Report for Other Blood Products) Urine Output: 150 mL Drains: bilateral 19F duane Disposition: awakened from anesthesia, extubated and taken to the recovery room in a stable condition, having suffered no apparent untoward event. Condition: doing well without problems (Please see the Surgical Encounter Summary for any Implant and Specimen details pertinent to this patient.) Infection Bundle used? No Plan: -Follow-up: 7-10d for wound check -Drains: remove when <30cc/day for two days -Dressing: remove 48 hours post-op -Abdominal binder 4-6 weeks -Remain in flexed position for five days Future Appointments Date Time Provider Department Center 01/05/2019 10:00 AM NURSE, PLASTIC SURGERY [facility] documented in this encounter Plan of Treatment Not on file documented as of this encounter Procedures Procedure Name Priority Date/Time Associated Diagnosis Comments MODIFIER, PAL (POWER ASSISTED LIPOSUCTION) 2018 7:36 AM EST panni ABDOMINOPLASTY EXC,W/ UMBILICAL TRANSPOSITION, FASCIAL PLICATION (WRVU 17.04) 2018 7:36 AM EST panni SUCTION ASSISTED LIPECTOMY,TRUNK (WRVU 4.95) 2018 7:36 AM EST panni POCT GLUCOSE Routine 2018 6:42 AM EST documented in this encounter Results * POCT Glucose (2018 6:42 AM EST) Glucose, POC 112 65 - 199 mg/dL [facility] Comment: Supplemental ranges: <140 mg/dL before meals <180 mg/dL all other times of the day Blood specimen (specimen) 2018 6:42 AM EST 2018 6:42 AM EST Otto Alexander MD POINT OF CARE TEST O RDERABLES [facility] [place] [address] documented in this encounter Visit Diagnoses Not on filedocumented in this encounter Admitting Diagnoses Diagnosis Abdominal pannus Localized adiposity documented in this encounter Administered Medications Inactive Administered Medications - up to 3 most recent administrations Medication Order MAR Action Action Date Dose Rate Site acetaminophen (TYLENOL) tablet 1,000 mg 1,000 mg, Oral, ONCE, 1 dose, On Fri12/28/18 at 0730, Administer with SIP of H2O only., Day of Surgery (Day of Procedure), Routine Given 2018 7:20 AM EST 1,000 mg acetaminophen (TYLENOL) tablet 1,000 mg 1,000 mg, Oral, EVERY 8 HOURS SCHEDULED, First dose on Fri12/28/18 at 1400, Until Discontinued, Maximum total acetaminophen dose 4 grams per 24 hours., Routine Given 12/29/2018 6:11 AM EST 1,000 mg Given 2018 9:53 PM EST 1,000 mg Given 2018 1:12 PM EST 1,000 mg citalopram (CeleXA) tablet 20 mg 20 mg, Oral, DAILY, First dose on Fri12/29/18 at 0900, Until Discontinued, Routine Given 12/29/2018 8:34 AM EST 20 mg docusate sodium (COLACE) capsule 100 mg 100 mg, Oral, 2 TIMES DAILY, First dose on Fri12/28/18 at 1230, Until Discontinued, Routine Given 12/29/2018 8:34 AM EST 100 mg Given 2018 8:13 PM EST 100 mg Given 2018 1:12 PM EST 100 mg enoxaparin (LOVENOX) injection 40 mg 40 mg, Subcutaneous, NIGHTLY, First dose on Fri12/28/18 at 2100, Until Discontinued, Routine Given 2018 8:13 PM EST 40 mg HYDROmorphone (DILAUDID) injection 0.2-0.4 mg 0.2-0.4 mg, Intravenous, EVERY 5 MIN PRN, Starting on Fri12/28/18 at 1020, Until Fri12/28/18 at 1142, Pain, Give 0.2 mg every 5 minutes PRN for mild to moderate pain (1-5) Give 0.4 mg every 5 minutes PRN for moderate to severe pain (6-10). Hold for respiratory rate less than 10 per minute. Maximum dose 4 mg over one hour. If multiple pain medications are ordered, start with hydromorphone or morphine and use fentanyl for breakthrough pain., PACU Recovery, Routine Given 2018 11:38 AM EST 0.4 mg Given 2018 11:30 AM EST 0.4 mg HYDROmorphone (DILAUDID) tablet 2 mg 2 mg, Oral, ONCE, 1 dose, On Fri12/28/18 at 1430, Routine Given 2018 2:24 PM EST 2 mg HYDROmorphone (DILAUDID) tablet 2-4 mg 2-4 mg, Oral, EVERY 4 HOURS PRN, Starting on Fri12/28/18 at 1049, Until Fri12/29/18 at 1220, Pain, Moderate to Severe Pain (4-10), Initial dose 2 mg. If pain not adequate in 60 minutes, give additional 2 mg., Routine Given 12/29/2018 7:19 AM EST 4 mg Given 2018 11:55 PM EST 4 mg Given 2018 6:21 PM EST 4 mg lactated Ringers infusion 1,000 mL 1,000 mL, at 100 mL/hr, Intravenous, CONTINUOUS, Starting on Fri12/28/18 at 0730, Until Fri12/28/18 at 1142, Day of Surgery (Day of Procedure) New Bag 2018 7:30 AM EST 1,000 mLs 100 mL/hr lactated Ringers infusion 1,000 mL 1,000 mL, at 100 mL/hr, Intravenous, CONTINUOUS, Starting on Fri12/28/18 at 1115, Until Fri12/28/18 at 2114, Recovery (Recovery-Hospital Unit) Continued Bag 2018 1:14 PM EST 1,000 mLs 100 mL/hr New Bag 2018 11:03 AM EST 1,000 mLs 100 mL/hr lactobacillus with pectin 1 capsule 1 capsule, Oral, DAILY, First dose on Fri12/28/18 at 1800, Until Discontinued, Routine Given 12/29/2018 8:34 AM EST 1 capsule Given 2018 5:58 PM EST 1 capsule metFORMIN (GLUCOPHAGE) tablet 500 mg 500 mg, Oral, 2 TIMES DAILY WITH MEALS, First dose on Fri12/28/18 at 1800, Until Discontinued, Routine Given 12/29/2018 7:18 AM EST 500 mg ondansetron (ZOFRAN) injection 4 mg 4 mg, Intravenous, EVERY 8 HOURS PRN, Starting on Fri12/28/18 at 1047, Until Fri12/29/18 at 1220, Nausea, May repeat times one in 30 minutes if ineffective. If multiple antiemetics are ordered, use ondansetron first, Recovery (Recovery-Hospital Unit) Given 2018 1:08 PM EST 4 mg ondansetron (ZOFRAN) tablet 4 mg 4 mg, Oral, EVERY 8 HOURS PRN, Starting on Fri12/28/18 at 1047, Until Fri12/29/18 at 1220, Nausea, Vomiting, If multiple antiemetics are ordered, use ondansetron first. PO Preferred. If patient unable to take PO, may give IV if ordered. May repeat times one in 45 minutes if ineffective., Recovery (Recovery-Hospital Unit), Routine sodium chloride 0.9 % flush 5 mL 5 mL, Intravenous, 2 TIMES DAILY, First dose on Fri12/28/18 at 1115, Until Discontinued, Recovery (Recovery-Hospital Unit), Routine Given 12/29/2018 8:35 AM EST 5 mLs Given 2018 8:17 PM EST 5 mLs Given 2018 1:11 PM EST 5 mLs spironolactone (ALDACTONE) tablet 25 mg 25 mg, Oral, 2 TIMES DAILY, First dose on Fri12/28/18 at 1800, Until Discontinued, Routine Given 12/29/2018 8:34 AM EST 25 mg Given 2018 5:57 PM EST 25 mg documented in this encounter Active and Recently Administered Medications Times are shown in EST. Scheduled Medication Order 12/27/2018 2018 12/29/2018 acetaminophen (TYLENOL) tablet 1,000 mg (COMPLETED) 1,000 mg, Oral, ONCE, 1 dose, On Fri12/28/18 at 0730, Administer with SIP of H2O only., Day of Surgery (Day of Procedure), Routine 0720 (Given - Provider: Della Mccain, ROSARIO) acetaminophen (TYLENOL) tablet 1,000 mg 1,000 mg, Oral, EVERY 8 HOURS SCHEDULED, First dose on Fri12/28/18 at 1400, Until Discontinued, Maximum total acetaminophen dose 4 grams per 24 hours., Routine 1312 (Given - Provider: Melanie Hodges, ROSARIO)2153 (Given - Provider: Mary Kay Spencer RN) 0611 (Given - Provider: Sherri Burnham RN) citalopram (CeleXA) tablet 20 mg 20 mg, Oral, DAILY, First dose on Fri12/29/18 at 0900, Until Discontinued, Routine 0834 (Given - Provid er: Melanie Erickson RN) docusate sodium (COLACE) capsule 100 mg 100 mg, Oral, 2 TIMES DAILY, First dose on Fri12/28/18 at 1230, Until Discontinued, Routine 1312 (Given - Provider: Melanie Hodges, ROSARIO)2012 (Given - Provider: Sherri Burnham, RN) 0834 (Given - Provider: Melanie Erickson, ROSARIO) enoxaparin (LOVENOX) injection 40 mg 40 mg, Subcutaneous, NIGHTLY, First dose on Fri12/28/18 at 2100, Until Discontinued, Routine 2013 (Given - Provider: Sherri Burnham, ROSARIO) HYDROmorphone (DILAUDID) tablet 2 mg (COMPLETED) 2 mg, Oral, ONCE, 1 dose, On Fri12/28/18 at 1430, Routine 1424 (Given - Provider: Melanie Hodges, ROSARIO) lactobacillus with pectin 1 capsule 1 capsule, Oral, DAILY, First dose on Fri12/28/18 at 1800, Until Discontinued, Routine 1758 (Given - Provider: Melanie Hodges RN) 0834 (Given - Provider: Melanie Erickson, RN) metFORMIN (GLUCOPHAGE) tablet 500 mg 500 mg, Oral, 2 TIMES DAILY WITH MEALS, First dose on Fri12/28/18 at 1800, Until Discontinued, Routine 1800 (Not Given - Provider: Melanie Hodges RN - Reason: Patient/family refused - Comment: will take in AM) 0718 (Given - Provider: Melanie Erickson, ROSARIO) sodium chloride 0.9 % flush 5 mL 5 mL, Intravenous, 2 TIMES DAILY, First dose on Fri12/28/18 at 1115, Until Discontinued, Recovery (Recovery-Hospital Unit), Routine 1311 (Given - Provider: Melanie Hodges, ROSARIO)2016 (Given - Provider: Sherri Burnham, ROSARIO) 0835 (Given - Provider: Melanie Erickson, RN) spironolactone (ALDACTONE) tablet 25 mg 25 mg, Oral, 2 TIMES DAILY, First dose on Fri12/28/18 at 1800, Until Discontinued, Routine 1757 (Given - Provider: Melanie Hodges RN) 0834 (Given - Provider: Melanie Erickson, ROSARIO) Continuous Medication Order 12/27/2018 2018 12/29/2018 lactated Ringers infusion 1,000 mL (CANCELED) 1,000 mL, at 100 mL/hr, Intravenous, CONTINUOUS, Starting on Fri12/28/18 at 0730, Until Fri12/28/18 at 1142, Day of Surgery (Day of Procedure) 0730 (New Bag - Provider: Della Mccain, ROSARIO) lactated Ringers infusion 1,000 mL () 1,000 mL, at 100 mL/hr, Intravenous, CONTINUOUS, Starting on Fri12/28/18 at 1115, Until Fri12/28/18 at 2114, Recovery (Recovery-Hospital Unit) 1103 (New Bag - Provider: Kathy Fournier RN)1314 (Continued Bag - Provider: Melanie Hodges RN)2153 (Stopped - Provider: Mary Kay Spencer RN) PRN Medication Order 12/27/2018 2018 12/29/2018 bisacodyl (DULCOLAX) suppository 10 mg 10 mg, Rectal, DAILY PRN, Starting on Fri12/28/18 at 1203, Until Fri12/29/18 at 1220, Constipation, Administer if needed per patient's routine or if no bowel movement within 48 hours to achieve: (1) One bowel movement at least every 48 hours, AND (2) Without straining. - If multiple PRN bowel medications ordered, start with magnesium hydroxide, then bisacodyl. - Multiple medications may be given concomitantly for constipation., Routine HYDROmorphone (DILAUDID) injection 0.2-0.4 mg (CANCELED) 0.2-0.4 mg, Intravenous, EVERY 5 MIN PRN, Starting on Fri12/28/18 at 1020, Until Fri12/28/18 at 1142, Pain, Give 0.2 mg every 5 minutes PRN for mild to moderate pain (1-5) Give 0.4 mg every 5 minutes PRN for moderate to severe pain (6-10). Hold for respiratory rate less than 10 per minute. Maximum dose 4 mg over one hour. If multiple pain medications are ordered, start with hydromorphone or morphine and use fentanyl for breakthrough pain., PACU Recovery, Routine 1130 (Given - Provider: Nay Fournier, ROSARIO)1138 (Given - Provider: Nay Fournier, ROSARIO) HYDROmorphone (DILAUDID) tablet 2-4 mg 2-4 mg, Oral, EVERY 4 HOURS PRN, Starting on Fri12/28/18 at 1049, Until Tu12/29/18 at 1220, Pain, Moderate to Severe Pain (4-10), Initial dose 2 mg. If pain not adequate in 60 minutes, give additional 2 mg., Routine 1100 (Given - Provider: Nay Fournier, RN)1821 (Given - Provider: Melanie Hodges, RN)2355 (Given - Provider: Sherri Burnham, RN) 0719 (Given - Provider: Melanie Erickson RN) lidocaine (XYLOCAINE) 10 mg/mL (1 %) injection 3 mg 3 mg (0.3 mL), Subcutaneous, ONCE PRN, 1 dose, Starting on Fri12/28/18 at 1047, Until Tu12/29/18 at 1220, for discomfort with PIV insertion, Recovery (Recovery-Hospital Unit), Routine ondansetron (ZOFRAN) injection 4 mg(Linked Group 1) 4 mg, Intravenous, EVERY 8 HOURS PRN, Starting on Fri12/28/18 at 1047, Until Tu12/29/18 at 1220, Nausea, May repeat times one in 30 minutes if ineffective. If multiple antiemetics are ordered, use ondansetron first, Recovery (Recovery-Hospital Unit) 1308 (Given - Provider: Melanie Hodges, ROSARIO) ondansetron (ZOFRAN) tablet 4 mg(Linked Group 1) 4 mg, Oral, EVERY 8 HOURS PRN, Starting on Fri12/28/18 at 1047, Until Tu12/29/18 at 1220, Nausea, Vomiting, If multiple antiemetics are ordered, use ondansetron first. PO Preferred. If patient unable to take PO, may give IV if ordered. May repeat times one in 45 minutes if ineffective., Recovery (Recovery-Hospital Unit), Routine 1308 (See Alternative - Provider: Melanie Hodges, ROSARIO) sodium chloride 0.9 % flush 5-20 mL 5-20 mL, Intravenous, EVERY 1 MIN PRN, Starting on Fri12/28/18 at 1047, Until Tu12/29/18 at 1220, flush, Flush pertains to all indwelling lines. Flush per protocol found in the job aid using the link provided on this medication record., Recovery (Recovery-Hospital Unit), Routine Linked Groups Order Group 1: ondansetron (ZOFRAN) tablet 4 mgJump to med 4 mg, Oral, EVERY 8 HOURS PRN, Starting on Fri12/28/18 at 1047, Until Fri12/29/18 at 1220, Nausea, Vomiting, If multiple antiemetics are ordered, use ondansetron first. PO Preferred. If patient unable to take PO, may give IV if ordered. May repeat times one in 45 minutes if ineffective., Recovery (Recovery-Hospital Unit), Routine Or ondansetron (ZOFRAN) injection 4 mgJump to med 4 mg, Intravenous, EVERY 8 HOURS PRN, Starting on Fri12/28/18 at 1047, Until Fri12/29/18 at 1220, Nausea, May repeat times one in 30 minutes if ineffective. If multiple antiemetics are ordered, use ondansetron first, Recovery (Recovery-Hospital Unit) documented in this encounter Care Teams Wire Mesh Gate Assembler Relationship Specialty Start Date End Date Megan Hayes APRN PCP - General Family Medicine 12/12/18 06/23/19 documented as of this encounter
--- OUTSIDE RECORDS SUMMARY | 2024-07-01 22:37 | XMS_ITS | Clinical Summary ---
Author Organization [facility] Address [address] [place] [id number] Care Team Providers Care It Service Technician Name Role Phone Susie Khan NP Primary Care Provider [phone] Allergies Active Allergy Reactions Criticality Noted Date Comments Penicillins 06/25/2017 Medications Medication Sig Dispensed Refills Start Date End Date Status metFORMIN (GLUCOPHAGE) 1,000 mg tablet Take 1,000 mg by mouth 2 times daily. Active Active Problems Problem Noted Date Diagnosed Date Encounter for cosmetic surgery 06/30/2017 Social History Tobacco Use Types Packs/Day Years Used Date Smoking Tobacco: Never Interpersonal Safety Answer Date Record ed Physically Hurt Never 06/25/2020 Verbally Threaten Not on file 06/25/2020 Sex and Gender Information Value Date Recorded Sex Assigned at Not on file Gender Identity Not on file Sexual Orientation Not on file Obstetrics History Last Filed Vital Signs Vital Sign Reading Time Taken Comments Blood Pressure - - Pulse - - Temperature - - Respiratory Rate - - Oxygen Saturation - - Inhaled Oxygen Concentration - - Weight 76.7 kg (169 lb) 06/25/2017 1503 EDT Height 169 cm (5' 6.54) 06/25/2017 1503 EDT Body Mass Index 26.84 06/25/2017 1503 EDT Plan of Treatment Health Maintenance Due Date Last Done Comments Hepatitis C Screen 1985 Hepatitis B Vaccine (1 of 3 - 19+ 3-dose series) 12/28 COVID-19 Vaccine ( - 2022-24 season) 2023 Care Teams It Service Technician Relationship Specialty Start Date End Date Susie Khan NP [address] [place] [address] PCP - General 01/16/21
--- OUTSIDE RECORDS SUMMARY | 2024-07-01 22:37 | XMS_ITS | Encounter Summary ---
Author Organization [facility] Address [address] [place] [address] Care Team Providers Care Lay Out Maker Name Role Phone Chantel Cook MD Primary Care Provider [phone] Encounter Details Date Type Department Care Team (Late st Contact Info) Description 04/10/2015 Results Only [facility] [phone] Santana Faustin MD [address] [place] [address] Social History Tobacco Use Types Packs/Day Years Used Date Smoking Tobacco: Never Assessed Sex and Gender Information Value Date Recorded Sex Assigned at Not on file Gender Identity Not on file Sexual Orientation Not on file documented as of this encounter Plan of Treatment Not on file documented as of this encounter Procedures Procedure Name Priority Date/Time Associated Diagnosis Comments PAP TEST- RESULT ONLY Routine 04/10/2015 0:00 EDT documented in this encounter Results * PAP TEST- RESULT ONLY (04/10/2015 0:00 EDT) Pathology Report: CYTOPATHOLOGY REPORT Reports generated via electronic interface contain original data; however they are lacking the format of the original report. Caution should be taken when reading/interpreti ng unformatted reports. Name: ? MARTINEZ CAMACHO ? Accession #: ? [id number] ? : ? 1985 (Age: 29) ??F ?Collect Date: ? 04/10/2015 ? Location: ? [facility] ? Receive Date: ? 04/11/2015 ? Provider: SANTANA FAUSTIN MD Copy to: CHANTEL COOK MD ? Final Report SPECIMEN ADEQUACY ? Satisfactory for Evaluation - transformation zone component present GENERAL CATEGORIZATION ? Negative for Intraepithelial Lesion or Malignancy ?? Other: Additional clinical information: Neg pap 07/2013 Specimen/Source: ??Pap Test, Cervix/Endocervix, ThinPrep Imaging System with manual evaluation Document reviewed and electronically signed by: ? Sumaya Lyles, CT(ASCP)(IAC) ? Report ??Date: 04/21/2015 10:21 HPV with Pap Test ? Date Ordered: ? 04/21/2015 ? Status: ?? Signed Out ?Date Complete: ? 04/25/2015 ? By: ??System Interface ? Date Reported: ? 04/25/2015 ? Interpretation RESULT: Negative for HPV. No E6 or E7 mRNA is detected from HPV types 16,18,31,33,35, 39,45,51,52,56,58, 59,66, and 68 by emergency room physician assistant mediated amplification. Comments Document reviewed and electronically signed by: ? System Interface ? Report date: 04/25/2015 By the signature above, the attending physician certifies that he/she has personally conducted a gross and/or microscopic examination of the described specimens and rendered or confirmed the above diagnosis. End of Report [facility] 04/10/2015 04/11/2015 Santana Faustin MD PATHOLOGY ORDERABLES [facility] [address] [place] [address] documented in this encounter Visit Diagnoses Not on filedocumented in this encounter Care Teams Lay Out Maker Relationship Specialty Start Date End Date Chantel Cook MD [address] [place] [phone] PCP - General 04/14/12 06/24/17 documented as of this encounter
--- OUTSIDE RECORDS SUMMARY | 2024-07-01 22:37 | XMS_ITS | Clinical Summary ---
Author Organization [facility] Address [facility] [place] [address] Care Team Providers Care Tag Stringer Name Role Phone DayneSusie herrera MARISSA Primary Care Provider [phone] Allergies Active Allergy Reactions Criticality Noted Date Comments Penicillins High CIS - Mouth swelling, difficulty breathing Medications Medication Sig Dispensed Refills Start Date End Date Status ibuprofen (ADVIL;MOTRIN) 600 mg Tablet Take 1 tablet by mouth every 6 hours as needed for Pain. 60 tablet 3 03/04/2015 Active Additional Information Patient not taking.Reported on 12/09/2019 metFORMIN (GLUCOPHAGE) 1,000 mg Tablet take 1 tablet by mouth twice a day 0 10/14/2017 Active spironolactone (ALDACTONE) 25 mg Tablet take 1 tablet by mouth twice a day 0 09/15/2017 Active levonorgestrel (MIRENA) 20 mcg/24 hr (5 years) IUD 1 each by Intrauterine route Continuous (Device). Removal date 05/2023 Active citalopram (CELEXA) 20 mg Tablet Take 20 mg by mouth daily. Active citalopram (CELEXA) 10 mg Tablet Take 10 mg by mouth daily. Active Active Problems Problem Noted Date Diagnosed Date Abdominal pannus 2018 hemorrhage 03/04/2015 Overview (03/04/2015): At time of rCS and BTL, EBL 1000 ml S/P abdominoplasty 01/30/2015 with third trimester bleeding, antepar daryl 01/30/2015 Supervision of high risk in [facility] 09/29/2014 Overview (09/29/2014): Team MFM Delivery plan GBS date & Result Cystic fibrosis choice Decline Aneuploidy choice Decline Others screening tests echocardiogram Infant nutrition Childbirth education preferences Contraception plan Possible BTL Ped/circ plans Immunizations: Influenza vaccine Accepted Declined Contraindicated Other vaccines Indicated Not indicated Given during Tdap Pneumovax MMR Varicella Other Gestational diabetes 09/29/2014 GDMA2 on insulin Immunizations Name Administration Dates Next Due Influenza PF, Split 09/07/2014 Influenza Vaccine, Whole 09/12/2010 Tdap 01/25/2015,10/08/2010 Family History Medical History Relation Comments Cancer Paternal Aunt Heart Disease Paternal Grandfather Colorectal Cancer Paternal Grandmother Breast Cancer Neg Hx Relation Status Comments Brother Alive Father Alive Maternal Aunt Alive Maternal Grandfather Alive Maternal Grandmother Alive Maternal Uncle Alive Mother Alive Paternal Aunt Paternal Grandfather Paternal Grandmother Alive Paternal Uncle Alive Social History Tobacco Use Types Packs/Day Years Used Date Smoking Tobacco: Never Smokeless Tobacco: Never Tobacco Cessation:Counseling Given: No Alcohol Use Standard Drinks/Week Comments Yes 7 (1 standard drink = 0.6 oz pur e alcohol) not while Sex and Gender Information Value Date Recorded Sex Assigned at Not on file Gender Identity Not on file Sexual Orientation Not on file Last Filed Vital Signs Vital Sign Reading Time Taken Comments Blood Pressure 96/68 12/29/2018 7:47 AM EST Pulse 73 12/29/2018 7:47 AM EST Temperature 36.8 ??C (98.2 ??F) 01/14/2019 1 0:03 AM EST Respiratory Rate 18 12/29/2018 7:47 AM EST Oxygen Saturation 97% 12/29/2018 7:47 AM EST Inhaled Oxygen Concentration - - Weight 81.1 kg (178 lb 12.7 oz) 2018 6:34 AM EST Height 170.2 cm (5' 7) 2018 6:34 AM EST Body Mass Index 28 2018 6:34 AM EST Plan of Treatment Health Maintenance Due Date Last Done Comments Hepatitis C Screening 2002 Hepatitis B vaccine (0-59 yrs) (1) 2003 HPV test 2014 PAP Smear 2014 Covid-19 Vaccine (1 - 2022-24 season) 2023 Influenza (Flu) vaccine (1 o f 1 - Influenza standard series) 07/25/2024 09/07/2014, 09/12/2010 Tetanus vaccine 01/25/2025 01/25/2015, 10/08/2010 HIV screen Completed 10/31/2014 Tdap adult Completed 01/25/2015, 10/08/2010 Procedures Procedure Name Priority Date/Time Associated Diagnosis Comments HIV SCREEN, 4TH GENERATION [place]) Routine 10/31/2014 3:49 PM EST from Last 3 Months or Most Recently Relevant to Health Maintenance Results * HIV (10/31/2014 3:49 PM EST) HIV 1/2 Ab Negative [facility] Blood specimen (specimen) 10/31/2014 3:49 PM EST 10/31/2014 3:59 PM EST Narrative Resulting Agency Comment Spec In Lab Karolyn Valles MD CHEMISTRY ORDERABLES [facility] from Last 3 Months or Most Recently Relevant to Health Maintenance Advance Directives * Full Code (Latest Code Status on File) Date Activated Date Inactivated Comments 2018 10:49 AM 12/29/2018 12:25 PM Question Answer Comments Does patient have capacity to make decision: Yes * Full Code Date Activated Date Inactivated Comments 01/20/2015 5:12 PM 03/01/2015 4:48 PM Question Answer Comments Order Status: Initial Order Does patient have decision m aking capacity? Yes, Order is based on Patients wishes. Care Teams Tag Stringer Relationship Specialty Start Date End Date Susie Khan, PHYSICIANS ASSISTANT [address] [place] [address] PCP - General Family Medicine 12/09/19
--- OUTSIDE RECORDS SUMMARY | 2024-07-01 22:37 | XMS_ITS | Encounter Summary ---
[place] [address] Care Team Providers Care Sales Administration Manager Name Role Phone Megan Hayes APRN Primary Care Provider [phone] Reason for Visit * Reason Comments Follow Up Surgery ? infection, s/p daryl my jayesh Encounter Details Date Type Department Care Team (Latest Contact Info) Description 01/14/2019 10:00 AM EST Clinical [place] [address] Surgery follow-up Social History Tobacco Use Types Packs/Day Years [...] Pressure - - Pulse - - Temperature 36.8 ??C (98.2 ??F) 01/14/2019 10:[address] Respiratory Rate - - Oxygen Saturation - - Inhaled Oxygen Concentration - - Weight - - Height - - Body Mass Index - - documented in this encounter Patient Instructions * Patient Instructions* Valerie Mccann RN - 01/14/2019 10:00 AM EST Signs of Infection : A temperature over 100.4 F or 38 C. Redness at the incision line that is beginning to spread away from the incision after the first 48 hours. Yellow pus-like or foul smelling drainage larger than a dime size from the incision or drain sites. Increased pain / discomfort that is not relieved by your pain medicine such as extra strength tylenol, or NSAIDS For any of these symptoms please call our nurse's line at [phone] M - F 8 - 5 For after hours, and on weekends; Call [phone] and ask for our plastic surgeon production corrugator documented in this encounter Progress Notes * Valerie Mccann RN - 01/14/2019 10:00 AM EST Images from the original note were not included. Reason for Visit: Postoperative Evaluation s/p Date of surgery: 12/28/18 Procedure(s): Panni with Dr. Quinn ?? POD # 16 Spring is here for concerns about infection. She saw her pcp on Mon who started her on Keflex for cellulitis of her left incision line. She reports that Mon she developed body aches,swelling, and lowgrade temp.She reports that she is feeling much better today. She states that the redness is much better. She is not using anything for pain. Objective: Dr. Quinn into examine Spring Bruising: none Swelling: mild bilaterally Redness improved per Spring She continues to wear her compression. Incision well approximated. Assessment: No signs of delayed healing, mild erythema,no fluid collection.Incisions CDI. Plan: We reviewed post op incision instructions including: We reviewed signs and symptoms of infection, spitting sutures, parameters for normal post op swelling and bruising. We reviewed correct phone numbers to call us for concerns. Finish antibiotics Continue compression for a total of six weeks from the date of surgery Spring expressed understanding of instructions,and agrees with the plan of care. Follow up in 3 months or sooner with Dr. Quinn documented in this encounter Plan of Treatment Not on file documented as of this encounter Visit Diagnoses Diagnosis Surgery follow-up Follow-up examination, following unspecified surgery documented in this encounter Care Teams Sales Administration Manager Relationship Specialty Start Date End Date Megan Hayes APRN PCP - General Family Medicine 12/12/18 06/23/19 documented as of this encounter
--- OUTSIDE RECORDS SUMMARY | 2024-07-01 22:37 | XMS_ITS | Encounter Summary ---
Author Organization [facility] Address [address] [place] [address] Care Team Providers Care Comb Fixer Name Role Phone Megan Hayes APRN Primary Care Provider [phone] Encounter Details Date Type Department Care Team (Late st Contact Info) Description 08/18/2017 Historical Results Only [facility] - Main [place] [address] [place] [address] Melanie Rdz MD [address] [place] [address]- [address] [place] [id number] Social History Tobacco Use Types Packs/Day Years Used Date Smoking Tobacco: Never Sex and Gender Information Value Date Recorded Sex Assigned at Not on file Gender Identity Not on file Sexual Orientation Not on file documented as of this encounter Plan of Treatment Not on file documented as of this encounter Procedures Procedure Name Priority Date/Time Associated Diagnosis Comments TSH Routine 08/18/2017 9:33 EDT documented in this encounter Results * TSH (08/18/2017 9:33 EDT) THYROID STIM HORMONE - [facility] 1.11 0.35 - 5.50 uIU/mL 08/18/2017 16:06 EDT [facility] 08/18/2017 9:33 EDT 08/18/2017 15:24 EDT Melanie Rdz MD CHEMISTRY & BLOOD GA S ORDERABLES [facility] documented in this encounter Visit Diagnoses Not on filedocumented in this encounter Care Teams Comb Fixer Relationship Specialty Start Date End Date Megan Hayes APRN [address] [place] [address] PCP - General 06/25/17 01/15/21 documented as of this encounter
--- OUTSIDE RECORDS SUMMARY | 2024-07-01 22:37 | XMS_ITS | Encounter Summary ---
Author Organization [facility] Address [address] [place] [address] Care Team Providers Care Aircraft Engine Assembler Name Role Phone Megan Hayes APRN Primary Care Provider [phone] Susie Khan NP Primary Care Provider [phone] Encounter Details Date Type Department Care Team (Late st Contact Info) Description 05/18/2020 Lab Requisition [facility] Medicine - [address] [address] Outr Resulting Lab, Provider Social History Tobacco Use Types Packs/Day Years Used Date Smoking Tobacco: Never Sex and Gender Information Value Date Recorded Sex Assigned at Not on file Gender Identity Not on file Sexual Orientation Not on file documented as of this encounter Plan of Treatment Not on file documented as of this encounter Procedures Procedure Name Priority Date/Time Associated Diagnosis Comments CHLAMYDIA/N. GONORRHOEAE AMPLIFIED NUCLEIC ACID Routine 05/18/2020 14:00 EDT documented in this encounter Results * CHLAMYDIA/N. GONORRHOEAE AMPLIFIED RNA (05/18/2020 14:00 EDT) Neisseria gonorrhoeae Result Negative Negative 05/19/2020 13:52 EDT [facility] Chlamydia trachomatis Result Negative Negative 05/19/2020 13:52 EDT [facility] Swab ENTIRE ENDOCERVIX / Unknown 05/18/2020 14:00 EDT 05/18/2020 22:46 EDT Provider Outr Resulting Lab MICROBIOLOGY - GENERAL ORDERABLES [facility] [address] [place] [address] documented in this encounter Visit Diagnoses Not on filedocumented in this encounter Care Teams Aircraft Engine Assembler Relationship Specialty Start Date End Date Megan Hayes APRN [address] [place] [address] PCP - General 06/25/17 01/15/21 Susie Khan NP [address] [place] [address] PCP - General 01/16/21 documented as of this encounter
--- OUTSIDE RECORDS SUMMARY | 2024-07-01 22:37 | XMS_ITS | Encounter Summary ---
Author Organization [facility] Address [address] [place] [address] Care Team Providers Care Supervisor Hydrochloric Area Name Role Phone Keyona Cook MD Primary Care Provider [phone] Encounter Details Date Type Department Care Team ([facility] st Contact Info) Description 04/13/2012 Results Only [facility] - [facility] ([facility]) [address] [place], [place] [id number] Boyd Driscoll MD [address] [place] [id number] Social History Tobacco Use Types Packs/Day Years Used Date Smoking Tobacco: Never Assessed Sex and Gender Information Value Date Recorded Sex Assigned at Not on file Gender Identity Not on file Sexual Orientation Not on file documented as of this encounter Plan of Treatment Not on file documented as of this encounter Procedures Procedure Name Priority Date/Time Associated Diagnosis Comments SURGICAL PATHOLOGY Routine 04/13/2012 0:00 EDT documented in this encounter Results * SURGICAL PATHOLOGY (04/13/2012 0:00 EDT) Pathology Report: SURGICAL PATHOLOGY REPORT Reports generated via electronic interface contain original data; however they are lacking the format of the original report. Caution should be taken when reading/interpreting unformatted reports. Name: ? MARTINEZ CAMACHO ? Accession #: ? [id number] ? : ? 1985 (Age: 26) ??F ? Collect Date: ? 04/13/2012 ? Location: ? [facility] ? Receive Date: ? 04/13/2012 ? Provider: BOYD DRISCOLL MD Copy to: KEYONA COOK MD ? Final Pathologic Diagnosis: A. ?Tonsil and adenoids, right, resection: 1. ?Tonsillar tissue with: ? - Reactive lymphoid follicular hyperplasia. - Keratinous cyst. ?2. ?? Adenoidal tissue with reactive lymphoid follicular hyperplasia. B. ?? Tonsil, left, resection: ? 1. ?? Tonsillar tissue with reactive lymphoid follicles. Comment: ? This case has been reviewed at the intradepartmental consultation conference. ??(Dr. Al)/[facility] Document reviewed and electronically signed by: Jodie Al MD Report ??Date: 04/15/2012 16:23 By the signature above, the attending physician certifies that he/she has personally conducted a gross and/or microscopic examination of the described specimens and rendered or confirmed the above diagnosis. Specimen(s) Received: A. ?Right tonsil and adenoids B. ? Left tonsil Clinical History: ? 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 Received in formalin labelled Martinez Camacho and Nora ??right tonsil and adenoids is a 3.5 x 2.2 x 2.0 cm firm, braun, slightly lobular, focally hyperemic palatine tonsil, which when sectioned reveals no discrete nodules. ??The tonsil does include a 1.0 cm in diameter cystic-like structure which contains pale braun, soft, pasty material. ??Also received separately in the specimen container are two light braun, firm fragments of slightly lobular tissue, consistent with adenoidal tissue, which measure 2.2 x 1.5 x 0.6 cm in aggregate. ??One guest experience representative section of the tonsil, including the previously described cystic-like structure, along with one section of the separately received adenoidal tissue are submitted as (A). Received in formalin labelled Martinez Camacho and B ??left tonsil is a 3.0 x 2.0 x 1.7 cm firm, braun, slightly lobular, focally hyperemic palatine tonsil, which when sectioned reveals no discrete nodules. ??One guest experience representative section of the tonsil is submitted as (B). ??(Kandi Parker)/sal End of Report LUCINDA YOUNG 04/13/2012 04/13/2012 9:3 6 EDT Boyd Driscoll MD PATHOLOGY ORDERABLES Performing Organization Address City/State/[facility] Co de Phone Number LUCINDA YOUNG [address] [place] [address] documented in this encounter Visit Diagnoses Not on filedocumented in this encounter Care Teams Supervisor Hydrochloric Area Relationship Specialty Start Date End Date Keyona Cook MD [address] [place] [phone] PCP - General 04/14/12 06/24/17 documented as of this encounter
--- OUTSIDE RECORDS SUMMARY | 2024-07-01 22:37 | XMS_ITS | Encounter Summary ---
Author Organization [facility] [place] [address] Care Team Providers Care Ferryboat Captain Name Role Phone Keyona Guevara MD Primary Care Provider [phone] Reason for Visit * Reason Comments Establish Care Encounter Details Date Type Department Care Team (Late st Contact Info) Description 12/11/2017 10:15 AM EST Office Visit Podiatry at [facility] [place] [address] Ad Morris DPM [place] [address] Hallux valgus, right Social History Tobacco Use Types Packs/Day Years [...] Sign Reading Time Taken Comments Blood Pressure 132/90 12/11/2017 10:36 AM EST Pulse 96 12/11/2017 10:36 AM EST Temperature - - Respiratory Rate - - Oxygen Saturation 98% 12/11/2017 10:36 AM EST Inhaled Oxygen Concentration - - Weight - - Height - - Body Mass Index - - documented in this encounter Progress Notes * Ad Morris DPM - 12/11/2017 10:15 AM EST Subjective: Patient presents to podiatry with a chief complaint of a painful bunion right foot. Patient reports this is been a problem for about a year. Discomfort interferes with day-to-day activities and athletic activities. She has difficulty finding shoes that are comfortable. Her ski boots really bother her. She is wondering what treatment options are available. She is accompanied by a friend. Review of systems: General-patient reports she feels well today. Denies fever or chills. Neurologic-she reports some numbness and tingling around the bunion deformity right foot. Objective: Chart reviewed. Reviewed patient's current problem list which includes diabetes. She reports she developed diabetes when she was with her second child. Blood sugars under good control. Reviewed current medications and allergies. Patient is a 31-year-old female. Alert and oriented ??3. Affect is appropriate. She has palpable dorsalis pedis and posterior tibial pulses bilaterally. Light touch is grossly intact bilaterally. Muscle strength is +5/5 in all 3 lower leg muscle groups. The patient has a mild to moderate bunion deformity right foot. Minimal bunion deformity left foot. There is some erythema and edema around the dorsal medial eminence of the first MP joint right. She is tender with plantar flexion of the first metatarsophalangeal joint and with palpation of the dorsal medial eminence. No crepitus. When the patient stands there is mild collapse of the longitudinal arch bilaterally. Assessment: Symptomatic hallux abductovalgus deformity right foot in a diabetic. Plan: Reviewed etiology of this problem. Reviewed treatment options. Focused on conservative treatment. We discussed appropriate shoes. We discussed having her current shoes stretched. Rx diclofenac gel to be applied to the dorsal medial eminence 3-4 times a day. I gave her information about purchasing prefabricated orthotics that would fit the type of shoes she likes to wear. We discussed a cortisone injection. The patient is going to follow-up in 3-4 weeks. Plan will be to have her have radiographs taken before that appointment. documented in this encounter Miscellaneous Notes * Addendum Note - Mary Jane Velez RN - 12/12/2017 12:21 PM ESTAddended by: MARY JANE VELEZ on: 12/12/2017 12:21 PM Modules accepted: Orders documented in this encounter Plan of Treatment Not on file documented as of this encounter Visit Diagnoses Diagnosis Hallux valgus, right documented in this encounter Care Teams Ferryboat Captain Relationship Specialty Start Date End Date Keyona Guevara MD [address] [facility] [address] [place] [address] PCP - General 10/16/10 12/11/18 documented as of this encounter
--- OUTSIDE RECORDS SUMMARY | 2024-07-01 22:37 | XMS_ITS | Encounter Summary ---
Author Organization [place] [address] Care Team Providers Care Coding Assistant Name Role Phone Megan Hayes APRN Primary Care Provider [phone] Reason for Visit * Reason Comments Follow Up Surgery Encounter Details Date Type Department Care Team (Latest Contact Info) Description 01/04/2019 3:00 PM EST Clinical [place] [address] Surgery follow-up Social History Tobacco Use Types Packs/Day Years Used Date Smoking Tobacco: Never Smokeless Tobacco: Never Alcohol Use Standard Drinks/Week Comments Yes 7 (1 standard drink = 0.6 oz pur e alcohol) not while Sex and Gender Information Value Date Recorded Sex Assigned at Not on file Gender Identity Not on file Sexual Orientation Not on file documented as of this encounter Patient Instructions * Patient Instructions* Valerie Mccann RN - 01/04/2019 3:00 PM EST Signs of Infection : A temperature [...] symptoms please call our nurse's line at [phone] M - F 8 - 5 For after hours, and on weekends; Call [phone] and ask for our plastic surgeon chief substation operator Your drains have removed your drain(s) have a compression dressing. You may remove the dressing in 24 hours and shower. After showering, you may cover the drain site(s) with a band aid,or guaze if still draining a largeamount of fluid. The drain site is typically closed in approximately three days. Please call the clinic with any questions or concerns @ [phone] Friday through Friday from 8-5. On weekends, nights, or holidays, call the Main Hospital number @ [phone] and ask for the Plastic Surgeon chief substation operator. Continue to wear binder 24/ for a total of 6 weeks from the date of surgery. Call for an appointment with a nurse when your drain reaches 30 ml or less for two days in a row documented in this encounter Progress Notes * Valerie Mccann RN - 01/04/2019 3:00 PM EST Reason for Visit: Postoperative Evaluation s/p 2018 Surgeon(s) and Role: * Otto Quinn MD - Primary * Nic Poe MD - Resident-Surgeon Napoleon: Procedure(s): SUCTION ASSISTED LIPECTOMY,TRUNK (WRVU *) ABDOMINOPLASTY EXC,W/ UMBILICAL TRANSPOSITION, FASCIAL PLICATION (WRVU 17.04) MODIFIER, PAL (POWER ASSISTED LIPOSUCTION) POD # 7 Spring is here for an incision check and drain removal. She is here with her . Subjective: Spring states she has mild discomfort, she states has had good relief from extra strength tylenol and motrin. Objective: Bruising: mild bilaterally Swelling: mild bilaterally Sutures absorbable,incision well approximated. She is wearing her binder 24/ Left drain removed today.It has been approx 20 mls daily of serous drainage. Right drain remains in place the average has been about 35 mls of serous drainage. Assessment: No signs of delayed healing,erythema,or fluid collection.Incisions CDI. Plan: We reviewed post op incision instructions including: We reviewed signs and symptoms of infection, spitting sutures, parameters for normal post op swelling and bruising. We reviewed increase protein in the diet, and correct phone numbers to call us for concerns. Dressing instructions: Continue to wear binder 16/06, Continue to monitor left drain output. Spring expressed understanding of instructions,and agrees with the plan of care. Follow up in 3 months or sooner with Dr. Quinn . documented in this encounter Plan of Treatment Not on file documented as of this encounter Visit Diagnoses Diagnosis Surgery follow-up Follow-up examination, following unspecified surgery documented in this encounter Care Teams Coding Assistant Relationship Specialty Start Date End Date Megan Hayes APRN PCP - General Family Medicine 12/12/18 06/23/19 documented as of this encounter
--- OUTSIDE RECORDS SUMMARY | 2024-07-01 22:37 | XMS_ITS | Encounter Summary ---
Author Organization [facility]ly [facility] [place] [address] Care Team Providers Care Evp Global Product Leadership Name Role Phone Susie Khan APRN Primary Care Provider [phone] Reason for Visit * Reason Comments Skin Lesion Encounter Details Date Type Department Care Team (Late st Contact Info) Description 12/09/2019 10:00 AM EST Office Visit Dermatology at [facility] [address] [place] [address] Shivam Sams MD [facility] [place] [address] Neoplasm of uncertain behavior of skin Social History Tobacco Use Types Packs/Day Years Used Date Smoking Tobacco: Never Smokeless Tobacco: Never Alcohol Use Standard Drinks/Week Comments Yes 7 (1 standard drink = 0.6 oz pur e alcohol) not while Sex and Gender Information Value Date Recorded Sex Assigned at Not on file Gender Identity Not on file Sexual Orientation Not on file documented as of this encounter Progress Notes * Shivam Sams MD - 12/09/2019 10:00 AM EST Images from the original note were not included. DERMATOLOGY ESTABLISHED PATIENT CLINIC NOTE Date of service: 12/09/2019 Spring Camacho : 1985 Provider: Shivam Sams MD Preferred name: Spring Preferred contact method with results: Cell Message okay: yes PROBLEM: skin lesion on right side of jaw line SKIN HISTORY: - No history of skin cancer - No history of eczema, psoriasis, or rosacea. 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 Camacho is a 33 y.o. year old female. Established patient, last seen 03/24/2019. Here today for evaluation of a skin lesion on her jaw line that has been irritated and bleeding since September. She notes that it used to look like the other moles on her face. Now it appears bloody and flaky at times. Preferred pharmacy: [facility] ADR: Penicillins MEDS: Current Outpatient Medications on File Prior to Visit Medication Sig Dispense Refill ??? levonorgestrel (MIRENA) 20 mcg/24 hr (5 years) IUD 1 each by Intrauterine route Continuous (Device). Removal date 05/2023 ??? citalopram (CELEXA) 20 mg Tablet Take [...] hours as needed for Pain.60 tablet 3 No current facility-administered medications on file prior to visit. ROS General: feeling well Skin: denies other skin complaints EXAM General: NAD, pleasant, cooperative Skin: Focused skin examination of the face was normal with the exception of the findings listed below. Significant skin findings: A. 0.3cm brown macule with surrounding hemorrhagic crust located on the right cheek ASSESSMENT/PLAN: A. Neoplasm of the Skin DDx: Nevus rule out atypia Procedure: Skin biopsy by shave technique Time of procedure: 10:35 AM Location: right cheek Discussed indications for procedure and expectations including risks and benefits. Verbal consent obtained. Skin prep with alcohol. Local anesthesia with 1% xylocaine, 1/100,000 epinephrine. A sampleof the lesion was removed by shave technique to the level of the dermis and submitted to Pathology.Hemostasis obtained (AlCl and/or electrocautery). There were no complications; the pt. tolerated the procedure well. The wound was dressed. Post-procedure expectations, wound care and activity restrictions were reviewed. Follow-up based on pathology results. RTC pending pathology The following photos were obtained with patient consent: Note initiated and routed to physician for review and change by: Karolyn Garibay LPN I, Catrachito Nicole, have performed the documentation for this encounter in the presence of and actingas a scribe for SHIVAM SAMS MD. I performed the services which were documented by the scribe, and I agree with the accuracy of the documentation in this encounter. SHIVAM SAMS MD. Shivam Sams MD Section of Dermatology [facility] documented in this encounter Plan of Treatment Not on file documented as of this encounter Procedures Procedure Name Priority Date/Time Associated Diagnosis Comments SPECIMEN TO PATHOLOGY Routine 12/09/2019 10:47 AM EST Neoplasm of uncertain behavior of skin SURGICAL PATHOLOGY REPORT Routine 12/09/2019 10:33 AM EST documented in this encounter Results * Specimen to Pathology (12/09/2019 10:47 AM EST) AP Specimen 12/09/2019 10:4 7 AM EST 12/09/2019 4:11 PM EST Narrative [facility] - 12/09/2019 4:12 PM EST Specimen requisition ordered. ??Separate Pathology report to follow Resulting Agency Comment Spec In Lab Shivam Sams MD PATHOLOGY/CYTOLOGY O RDERABLES [facility] [place] [address] * Surgical Pathology Report (12/09/2019 10:33 AM EST) Final Diagnosis [id number] ? Location: [facility] The signing pathologist has (i) examined the relevant preparation(s) for the specimen(s) and (ii) rendered or confirmed the diagnosis(es). . ?Surgical Pathology DIAGNOSIS A. Skin, right cheek, shave biopsy: - ??Consistent with traumatized predominantly intradermal melanocytic nevus, ?present at the deep specimen edge ?? (see discussion) Electronically signed by: ??Niecy Earl MD Verified: ??12/15/2019 ?Dermatopathologist Performed at: ??-[facility] Dept. of Pathology, [place], [place] DISCUSSION Ki67/Melan-A double stain does not reveal significant increase in the proliferation index among melanocytes. PRAME stain is negative. The findings are ? consistent with an ulcerated/traumatized melanocytic nevus. If this lesion were to repigment or otherwise show any evidence of regrowth, consideration should be given to further clinical evaluation and repeat sampling. ADDITIONAL STUDIES Multiple step-leveled sections were reviewed. ?This case was also reviewed by an additional intradepartmental dermatopathologist for consensus diagnosis. Immunohistochemistry Studies: Formalin-fixed, paraffin-embedded tissue sections are studied using the polymer technique with appropriate positive and negative controls. ?These IHC studies provide the pathologist with adjunctive diagnostic information. Antibody specificity has been verified by testing antibodies on a series of in-house tissues with known immunohistochemical performance characteristics. The clinical interpretation of any antibody positive staining or its absence is evaluated within the context of clinical presentation, morphology, histopathological criteria and other diagnostic tests. CLINICAL INFORMATION Specimen Submitted: A - Skin, right cheek, shave biopsy (1) Clinical History and Diagnosis: 0.3 cm brown macule with surrounding hemorrhagic crust. Nevus rule out atypia SPECIMEN PROCESSING A - Labeled/Fixative: Right cheek, formalin. Quantity/Size: ??Single, 0.5 x 0.4 x 0.1 cm. Tissue Description: Shave of granular, braun-grullon skin. Sections/Processing: Inked, bisected and entirely submitted in 1 cassette labeled A1. ??PPS 12/15/2019 1:58 PM EST [facility] SPECIMEN FROM SKIN / Unknown 12/09/2019 10:33 AM EST 12/09/2019 10:33 AM EST Shivam Sams MD PATHOLOGY/CYTOLOGY O JAMILAH Performing Organization Address City/State/[facility] Co de Phone Number [facility] [place] [address] documented in this encounter Visit Diagnoses Diagnosis Neoplasm of uncertain behavior of skin documented in this encounter Care Teams Evp Global Product Leadership Relationship Specialty Start Date End Date Susie Khan, MARISSA [address] [address] PCP - General Family Medicine 12/09/19 documented as of this encounter
--- OUTSIDE RECORDS SUMMARY | 2024-07-01 22:37 | XMS_ITS | Encounter Summary ---
Author Organization [place] [address] Care Team Providers Care Technical Support 1 Software Engineer Name Role Phone Keyona Guevara MD Primary Care Provider [phone] Reason for Visit * Reason Comments Advice Only bba and lali perez onsult Encounter Details Date Type Department Care Team (Late st Contact Info) Description 09/28/2018 3:45 PM EST Office [place] [address] Otto Alexander MD [facility] [place] [address] Elastosis of skin; Breast ptosis Social History Tobacco Use Types Packs/Day Years [...] - Inhaled Oxygen Concentration - - Weight 80.3 kg (177 lb) 09/28/2018 4:03 PM EST Height 167.6 cm (5' 6) 09/28/2018 4:03 PM EST Body Mass Index 28.57 09/28/2018 4:03 PM EST documented in this encounter Patient Instructions * Patient Instructions* Mary Jo Jacobo RN - 09/28/2018 3:45 PM EST You were given written and verbal preoperative instructions today. Patient was advised to: 2 weeks prior to surgery: Stop taking aspirin & ibuprofen type products and Stop vitamin E, Garlic supplements, Ginseng, Fish oil tablets, Ginkgo and Ruthy's Wort. May resume 48 hours after surgery 3 days before surgery: Do not shave near your surgical site 1 day before surgery: Shower the night before and the morning of your surgery using an antibacterial soap (Dial or Lever 2000) or Hibiclens that was provided Photos Taken: Yes with iPad for MIRROR To prepare for your upcoming surgery, please review the Pre-Operative Instruction brochure that youwere given at today's appointment. Feel free to call our office [phone] if you have any nursingquestions or concerns. We monitor the phones from 8-5 Friday through Friday. Expect a call from the Same Day Dept the business day before surgery to go over your list of medications and instruct you on arrival time, and when to stop eating and drinking. For questions pertaining to your surgery date or time please call Camila at [phone]. documented in this encounter Progress Notes * Otto Alexander MD - 09/28/2018 3:45 PM EST Plastic Surgery Consultation Note Otto Alexander MD PCP: Keyona Guevara MD CC: breast mastopexy, abdominoplasty consultation HPI: Spring Camacho is a 32 y.o. woman [...] volume but would like her shape to bebetter. Her current weight has been stable for several months. She currently weighs 177 pounds. Shehad another [facility] at [facility] about a year ago, but did not feel ready to proceed with surgery atthat time. She has breast fed three children and has had five pregnancies. She feels her breasts have become more deflated and have descended after her pregnancies. She denies any abdominal bulging. She has never had a mammogram. She has no known family history of breast cancer. She denies any breast masses or lumps. She takes metformin and spironolactone for PCOS. She does not smoke, and drinks occasionally socially. 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 She has four adopted children. Past Medical History: Diagnosis Date ??? Depression [...] DELIVERY performed by Griselda Willson MD at [facility] ??? PRO LIGATE FALLOPIAN TUBE, N/A 03/01/2015 @FALLOPIAN TUBE(S), TRANSECTION OR LIGATION, ABD APPROACH, POST- performed by Griselda Willson MD at [facility] ??? TONSILLECTOMY AND ADENOIDECTOMY 2013 Family History Problem Relation Age of Onset ??? Cancer Paternal Aunt ??? Colorectal Cancer Paternal Grandmother ??? Heart Disease Paternal Grandfather 40s ??? Breast Cancer Neg Hx Current Outpatient Medications on File Prior to [...] by mouth twice a day 0 ??? [DISCONTINUED] diclofenac (VOLTAREN) 1 % Gel Apply 2 g topically 4 times daily. 100 g 2 ??? [DISCONTINUED] LESSINA 0.1-20 mg-mcg Tablet take 1 tablet by mouth once daily 0 ??? ibuprofen (ADVIL;MOTRIN) 600 mg Tablet Take 1 tablet by mouth every 6 hours as needed for Pain.(Patient not taking: Reported on 09/28/2018) 60 tablet 3 No current facility-administered medications on file prior to visit. Allergies Allergen Reactions ??? Penicillins CIS - Mouth swelling, difficulty breathing Soc Hx: Social History Socioeconomic History ??? Marital status: [...] non-medical: Not on file Occupational History ??? Not on file Tobacco Use ??? Smoking status: Never Smoker ??? Smokeless tobacco: Never Used Substance and Sexual Activity ??? Alcohol use: Yes Alcohol/week: 4.2 oz Types: 7 Glasses of wine per week Comment: not while ??? Drug use: No ??? Sexual activity: Yes Partners: Male Other Topics Concern ??? Not on file Social History Narrative ??? Not on file Examination: Ht 167.6 cm (5' 6) Wt 80.3 kg (177 lb) BMI 28.57 kg/m?? In NAD Abdomen: No abdominal or umbilical hernias Abdominal pannus which extend to cover mons, but not onto upper thigh Grade 2: Panniculus extends to cover the genitalia Abdominal fullness in mons Mild skin irritation underneath pannus Extensive striae anterior abdominal wall No prohibitive scars on abdomen Breast anatomic measurements: RIGHT (cm) LEFT (cm) Sternal [id number]-ei-[id number] distance: 26 27.5 Inframammary crease to nipple distance: 12.5 12.5 Base diameter 15 15 Breast volume 850 800 Impression: Spring Camacho is a suitable candidate for breast mastopexy and abdominoplasty. I discussed that I would not recommend a breast augmentation for her as she does have fairly significant breast volume and would benefit from a mastopexy only. I discussed the need for a small skin reduction as well to be able to adequately lift her breast position. This would also allow for a more durable result. We reviewed the impact of gravity and aging and that her breasts will continue to descend with time. I advised her to plan for 6 weeks of activity restrictions, with need for post op drain placement and abdominal compression. I also cautioned her to avoid tanning after surgery to prevent scar hyperpigmentation. Recommendations: Breast mastopexy and abdominoplasty. We also discussed liposuction to her flanks. The procedure of abdominoplasty was discussed and the resulting scars (transverse and periumbilical) were reviewed. We talked about complications of numbness, infection, hematoma, seroma, asymmetry, need for scar revision and delayed wound healing. We also discussed the additional risks of liposuction, which include irregularities of the skin, risk of skin loss, risk of blood clots or pulmonary complications. She was provided ASPRS brochures and informed consent documents on both procedures. Chapo get her pricing information and proceed to book her in the main operating room if she wishes to proceed. If she has additional questions that arise I would be happy to see her again in the office. However, I believe that her expectations are quite realistic. I also provided her with a comprehensive packet of printed information including: The risks of these procedures were covered either in our discussion and/or in the informational materials provided. Risks covered included the following. General risks of surgery: Bleeding(and hematoma with risk of reoperation), numbness (temporary or permanent), scarring, infection (which could result in removal of implant for 3 months) and delayed wound healing asymmetry; possible need for revision. Plan: Pricing information to be provided Amy breast reduction link sent to her [facility] account Potential Grid Surgeon: Otto Alexander Duration: 5 hours + 1 night overnight MAIN OR Timeframe: TBD Procedure: mastopexy, abdominoplasty, flank liposuction (30 mins) CPT: 14417, 21860 Surgical site: Breasts, abdomen Side:Migue lA Anesthesia: General Follow up: 7-10 Days NSO or AEE PAT: PCP clearance I, Licha Gonzalez, have performed the documentation for this encounter in the presence of and actingas a scribe for Dr. Alexander. I performed the services which were documented by the scribe, and I agree with the accuracy of the documentation in this encounter. OTTO ALEXANDER MD documented in this encounter Plan of Treatment Not on file documented as of this encounter Visit Diagnoses Diagnosis Elastosis of skin Other specified hypertrophic and atrophic condition of skin Breast ptosis Ptosis of breast documented in this encounter Care Teams Technical Support 1 Software Engineer Relationship Specialty Start Date End Date Keyona Guevara MD [address] [place] [address] [address] [place] [address] PCP - General 10/16/10 12/11/18 documented as of this encounter
--- OUTSIDE RECORDS SUMMARY | 2024-07-01 22:37 | XMS_ITS | Encounter Summary ---
Author Organization [facility] Address [address] [place] [address] Care Team Providers Care National [employer] Truck Driver Name Role Phone Megan Hayes MARISSA Primary Care Provider [phone] Reason for Visit * Reason Comments New Patient Visit mastopexy and Tummy Tuck Encounter Details Date Type Department Care Team (Late st Contact Info) Description 06/25/2017 15:00 EDT Office Visit [facility] Plastic, Reconstructive & Cosmetic Surgery - [address], [address] [place], [place] [address] Jas Browne MD [address] [address] Encounter for cosmetic surgery (Primary Dx) Social History Tobacco Use Types Packs/Day Years [...] Body Mass Index 26.84 06/25/2017 1503 EDT documented in this encounter Progress Notes * Jas Browne MD - 06/25/2017 1500 EDT The patient presents today for discussions and possible elective cosmetic improvement of the breastand abdomen. The patient is a 31-year-old woman who considers itself healthy. She did have gestational diabetes and she is remained on metformin with an A1c less than 6. She also has polycystic ovarian syndrome. She is status post a ??3. Her last 2 years ago was complicated by an in utero hematoma or a partially abrupt placenta which required 7 weeks of bed rest. On her intake form she does state that she has a history of blood clots. However this relates to her in utero hematoma. She works for the [employer] in [place] and also does into her tanning and size. She is presentlysize 36DD, weighs 174 pounds at 5 foot 7 inches tall. She goes on to explain that she does not likethe apron of skin and fat on the lower abdomen. Additionally she breast fed all 3 children and she would like to have a breast lift and also maintain her present size of the breast. Family history is negative for breast cancer and she has never had a mammogram. On physical examination today she appears well. She is awake alert and oriented ??3 and she is appropriately interactive. Today's examination is done in the presence of our plastic surgery MAGely. Examination of the breast shows a notch to nipple distance of 26 cm bilaterally within internipple distance of 23. The base diameter is 18 cm bilaterally. On the left inframammary distance is 13. On the right inframammary distance is 13.5. There are no palpable abnormalities masses or tender regions. Examination of the abdomen reveals a well-healed lower abdominal Pfannenstiel incision. The incision is tethered down to her abdominal wall fascia and there is a drape of redundant tissue I in the infraumbilical region. I do not appreciate any palpable abnormalities masses or tender regions. Assessment and plan: Cosmetic deformity of the breast and abdomen. Today my recommendation was a full abdominoplasty. Additionally she would need a mastopexy most likely with a small implant to maintain her size. Today I reviewed these procedures with her. She was given an abundance of information f or her review and consideration. Baseline photographs were taken. She also received pricing. Follow-up scheduled for approximately a month. End dictation documented in this encounter Plan of Treatment Not on file documented as of this encounter Visit Diagnoses Diagnosis Encounter for cosmetic surgery- Primary Other plastic surgery for unacceptable cosmetic appearance documented in this encounter Historical Medications * This list may reflect changes made after this encounter. Medication Sig Dispensed Refills Start Date End Date metFORMIN (GLUCOPHAGE) 1,000 mg tablet Take 1,000 mg by mouth 2 times daily. added in this encounter Care Teams National Van Truck Driver Relationship Specialty Start Date End Date Megan Hayes APRN [address] [place] [address] PCP - General 06/25/17 01/15/21 documented as of this encounter
--- OUTSIDE RECORDS SUMMARY | 2024-07-01 22:37 | XMS_ITS | Encounter Summary ---
Author Organization [facility] Address [facility], [place] [address] Care Team Providers Care Patrol Community Service Officer Name Role Phone Megan Hayes APRN Primary Care Provider [phone] Reason for Visit * Reason Comments Skin Lesion on scalp and back Encounter Details Date Type Department Care Team (Late st Contact Info) Description 03/24/2019 1:45 PM EDT Office Visit Dermatology at [facility] [address] [place] [address] Ness Roy MD [facility] [place] [address] Neoplasm of uncertain behavior of skin Social [...] this encounter Patient Instructions * Patient Instructions* Ghada Mendoza - 03/24/2019 1:45 PM EDT Shave Biopsy Wound Care Instructions Your treatment today: You have had a shave biopsy of your skin, which is a removal of tissue for examination under a microscope. This wound will heal without stitches. Allow 3-6 weeks for the wound to heal fully. If bleeding should occur, hold firm, constant pressure against the wound for 15- 20 minutes (with nopeeking). If bleeding continues, call the clinic or go to your local emergency department. Please allow 1-2 weeks for the biopsy results to return. Based on the results, your physician or nurse will contact you by phone or letter; follow-up will be discussed at that time. If in 2 weeks, you have not heard from us, please feel free to call to request your biopsy results. Wound care instructions: Keep the bandage placed over the wound dry and intact for 24 hours. Afterwards, perform the following wound care daily: ?? Wash your hands. ?? Remove the bandage, clean the area with soap and water, and gently pat dry. ?? Apply a small amount of Vaseline and cover with a Band-Aid. ?? Repeat daily until the wound is healed fully. A small amount of yellow drainage is part of the normal healing process. The area might appear as asmall depression with redness around the edge of the wound; this is normal. Please contact the clinic if you notice any of the following signs of infection: increased pain, tenderness, drainage, or redness that becomes hot or hard around the wound. Contact information: On weekdays (8am to 5pm), please call the clinic at [phone]. After 5pm, and on weekends and holidays, please call the hospital at [phone] and ask for the Registered Route Associate Hazmat Cdl Driver. documented in this encounter Progress Notes * Ness Roy MD - 03/24/2019 1:45 PM EDT Images from the original note were not included. DERMATOLOGY CONSULT NOTE Date of service: 03/24/2019 Spring Camacho : 1985 Provider: Ness Roy MD Chief Complaint Patient presents with ??? Skin Lesion on scalp and back SKIN HX: - No history of skin cancer - No history of eczema, psoriasis, or rosacea. - History of blistering sunburns - Tanning bed use since age 13 Preferred name: Spring Preferred method of contact for results: Phone OK to leave detailed message including biopsy results if applicable: Yes HPI Spring Camacho is a 33 y.o. female, new patient, seen at the request of Megan Hayes APRN, whoinstructed the patient to be seen for evaluation of above. 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 She gets her hair done every six months and this spot just appeared and itches occasionally. She denies any bleeding or tenderness to the area. - She also has a spot on her back that looks suspicious. She denies any itching, bleeding, or tenderness to the area. 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 [facility] Current Outpatient Medications Medication Sig Dispense Refill ??? cephalexin (KEFLEX) 500 mg Capsule Take 500 mg by mouth 4 times daily. ??? levonorgestrel (MIRENA) 20 mcg/24 hr (5 [...] Pain.60 tablet 3 No current facility-administered medications for this visit. ADR: Penicillins ROS General: feeling well Skin: denies other skin complaints MEDICAL HISTORY: Patient Active Problem List Diagnosis Code ??? Supervision of high risk in second trimester O09.92 ??? Gestational diabetes O24.414 ??? Previous delivery affecting O34.219 ??? with third trimester bleeding, antepartum O46.93 ??? GDMA2 on insulin O24.419 ??? hemorrhage O72.1 ??? 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 EXAM General: NAD, pleasant, cooperative Skin: Focused skin examination of the left scalp and back was normal with the exception of the findings listed below. Significant skin findings: A. Left temporal scalp: 0.5 cm new onset irregularly pigmented macule. Photo taken and charted with patient's verbal consent. B. Right upper back: 0.6 cm two-toned brown macule . Photo taken and charted with patient's verbal consent. ASSESSMENT/PLAN: A. Nevus, r/o atypia - Recommended a skin biopsy to confirm/clarify the nature of the skin lesion. After discussion of potential risks (scarring, bleeding, infection) and recurrence, patient agreed to proceed. - Patient denies known allergies to lidocaine and epinephrine. Procedure: Skin shave biopsy. Location: left temporal scalp Time of procedure: 2:05PM Discussed indications for procedure and expectations including risks and benefits. Verbal consent obtained. Skin prepped with alcohol. Local anesthesia with 1% xylocaine, 1/100,000 epinephrine. A sample of the lesion was removed by shave technique to the level of the dermis and submitted to Pathology. Hemostasis obtained (AlCl and/or electrocautery). There were no complications; patient toleratedthe procedure well. Wound dressed. Post-procedure expectations, wound care and activity restrictions reviewed. ?? - Follow-up based on pathology results. B. Nevus, r/o atypia - Recommended a skin biopsy to confirm/clarify the nature of the skin lesion. After discussion of potential risks (scarring, bleeding, infection) and recurrence, patient agreed to proceed. - Patient denies known allergies to lidocaine and epinephrine. Procedure: Skin shave biopsy. Location: right upper back Time of procedure: 2:05PM Discussed indications for procedure and expectations including risks and benefits. Verbal consent obtained. Skin prepped with alcohol. Local anesthesia with 1% xylocaine, 1/100,000 epinephrine. A sample of the lesion was removed by shave technique to the level of the dermis and submitted to Pathology. Hemostasis obtained (AlCl and/or electrocautery). There were no complications; patient toleratedthe procedure well. Wound dressed. Post-procedure expectations, wound care and activity restrictions reviewed. ?? - Follow-up based on pathology results. Follow up: Based on pathology results. RTC in 1 year for a full skin exam; sooner if needed. Reminder placed in system to schedule. Instructed patient to call with questions or concerns. Note initiated by: ASHLEY Thomspon ? Ghada Mendoza, Clinical Scribe has performed the documentation for this encounter in the presenceof and acting as a scribe for Ness Roy MD. I performed the above scribed service and agree with the accuracy of the documentation in this encounter. Ness Roy MD Developer Support Engineer of Dermatology, Department of Surgery [facility] cc: Megan Hayes APRN * Ness Roy MD - 03/24/2019 1:45 PM EDT Felicita, The biopsy shows a mildly atypical mole from the scalp and a moderately atypical mole (which was removed by the bx) from the back. No further treatment is needed at this time. Please notify patient. Thank you, DTB * Dhaval Monet LPN - 03/24/2019 1:45 PM EDT Spoke with patient regarding recent biopsy results. Per Dr. Roy: The biopsy shows a mildly atypical mole from the scalp and a moderately atypical mole (which was removed by the bx) from the back. ??No further treatment is needed at this time. Patient verbalized understanding and reports she is healing well from both biopsies. I encouraged her to call our clinic with any questions or concerns. DHAVAL MONET LPN documented in this encounter Plan of Treatment Not on file documented as of this encounter Procedures Procedure Name Priority Date/Time Associated Diagnosis Comments SPECIMEN TO PATHOLOGY Routine 03/24/2019 5:08 PM EDT Neoplasm of uncertain behavior of skin SURGICAL PATHOLOGY REPORT Routine 03/24/2019 2:33 PM EDT documented in this encounter Results * Specimen to Pathology (03/24/2019 5:08 PM EDT) AP Specimen 03/24/2019 5:08 PM EDT 03/25/2019 11:35 AM EDT Narrative [facility] - 03/25/2019 11:35 AM EDT Specimen requisition ordered. ??Separate Pathology report to follow Resulting Agency Comment Spec In Lab Ness Roy MD PATHOLOGY/CYTOLOGY ORDERABLES [facility] [place] [address] * Surgical Pathology Report (03/24/2019 2:33 PM EDT) Final Diagnosis [id number] ? Location: [facility] The signing pathologist has (i) examined the relevant preparation(s) for the specimen(s) and (ii) rendered or confirmed the diagnosis(es). . ?Surgical Pathology DIAGNOSIS A. Skin, left temporal scalp, shave biopsy: - ??Compound dysplastic ??melanocytic nevus with mild atypia and special site features, ??present at the peripheral specimen edge B. Skin, right upper back, shave biopsy: - Lentiginous compound dysplastic ?? melanocytic ??nevus with moderate atypia, irritated, ??free of the specimen edges in the examined planes of section Electronically signed by: ??Marielle Aguilar MD Verified: ??03/29/2019 ?Dermatopatholog ist Performed at: ??[facility] [place] [facility] [place] [place], [place] ADDITIONAL STUDIES A - Interpretation of multiple step-leveled slide sections confirms the diagnosis above. B - Interpretation of multiple deeper leveled slide sections and a Melan A stain confirms the diagnosis above. CLINICAL INFORMATION Specimen Submitted: A - Skin, left temporal scalp, shave biopsy (1) B - Skin, right upper back, shave biopsy (1) Clinical History and Diagnosis: A - 0.5 cm new onset irregularly pigmented macule; nevus rule out atypia B - 0.6 cm two toned brown macule; nevus R/O atypia SPECIMEN PROCESSING A - Labeled/Fixative: Left temporal scalp, formalin. Quantity/Size: ??Single, 0.6 x 0.5 x 0.1 cm. Tissue Description: Shave of white skin with a 0.5 x 0.4 cm brown macule. Sections/Processi ng: Inked, bisected and entirely submitted in 1 cassette labeled A1. B - Labeled/Fixative: Right upper back, formalin. Quantity/Size: ??Single, 0.8 x 0.7 x 0.1 cm. Tissue Description: Shave of braun skin with a 0.5 x 0.4 cm brown macule. Sections/Processi ng: Inked, trisected and entirely submitted in 1 cassette labeled B1. ??sns 03/29/2019 5:44 PM EDT [facility] SPECIMEN FROM SKIN / Unknown 03/24/2019 2:33 PM EDT 03/24/2019 2:33 PM EDT SPECIMEN FROM SKIN / Unknown 03/24/2019 2:33 PM EDT 03/24/2019 2:33 PM EDT Ness Roy MD PATHOLOGY/CYTOLOGY ORDERABLES [facility] [place] [address] documented in this encounter Visit Diagnoses Diagnosis Neoplasm of uncertain behavior of skin documented in this encounter Care Teams Patrol Community Service Officer Relationship Specialty Start Date End Date Megan Hayes APRN PCP - General Family Medicine 12/12/18 06/23/19 documented as of this encounter
--- OUTSIDE RECORDS SUMMARY | 2024-07-01 22:37 | XMS_ITS | Encounter Summary ---
Author Organization [facility] Address [address] [place] [address] Care Team Providers Care Door Paneler Name Role Phone Unavailable Primary Care Provider Unavailabl e Encounter Details Date Type Department Care Team (Late st Contact Info) Description 07/03/2004 Results Only [facility] [address] [place] [address] Jose Gonzalez, ELKE [address] [place] [id number] Social History Tobacco Use Types Packs/Day Years Used Date Smoking Tobacco: Never Assessed Sex and Gender Information Value Date Recorded Sex Assigned at Not on file Gender Identity Not on file Sexual Orientation Not on file documented as of this encounter Plan of Treatment Not on file documented as of this encounter Procedures Procedure Name Priority Date/Time Associated Diagnosis Comments CYTOPATHOLOGY Routine 07/03/2004 0:00 EDT documented in this encounter Results * CYTOPATHOLOGY (07/03/2004 0:00 EDT) Pathology Report: CYTOPATHOLOGY REPORT Reports generated via electronic interface contain original data; however they are lacking the format of the original report. Caution should be taken when reading/interpreti ng unformatted reports. Name: ? MARTINEZ RICHARDSON ? Accession #: ? [id number] : ? 1985 (Age: 18) ??F ?Collect Date: ? 07/03/2004 Location: ? [facility] ? Receive Date: ? 07/05/2004 Provider: ?JOSE GONZALEZ TELESCOPE REPAIRER Copy to: ? Specimen/Source: ?ThinPrep Pap Test, Vagina/Cervix Last Menstrual Period: ? 06/02/04 Hormonal/Contracep tive Status: ? Yes ? SPECIMEN ADEQUACY ? Satisfactory for Evaluation - transformation zone component present GENERAL CATEGORIZATION ? Negative for Intraepithelial Lesion or Malignancy ? Document reviewed and electronically signed by: ? MARIA DEL CARMEN Espinosa(ASCP) ? Report Date: ??07/09/2004 16:12 End of Report [facility] YOUNG 07/03/2004 07/05/2004 Jose Gonzalez TELESCOPE REPAIRER PATHOLOGY ORDERABLES [facility] [address] [place] [address] documented in this encounter Visit Diagnoses Not on filedocumented in this encounter
--- OUTSIDE RECORDS SUMMARY | 2024-07-01 22:37 | XMS_ITS | Encounter Summary ---
Author Organization [facility] Address [facility] [place] [address] Care Team Providers Care Supervisor Vegetable Farming Name Role Phone Keyona Guevara MD Primary Care Provider [phone] Encounter Details Date Type Department Care Team (Late st Contact Info) Description 03/06/2015 11:59 PM EDT [place] [address] Dewayne Paula MD [facility] [place] [address] Anesthesia Record Procedure Summary Procedure Name Responsible Anesthesiologist Anesthesia Start Time Anesthesia Stop Time @ DELIVERY (WRVU 16.13) (Bilateral) Events No events on file. Meds * Agents No agents on file. * Blood No blood administrations on file. Lines, Drains, and Airways Type Details Placement Removal Drain/Device Site 12/28/18; 1004; Left ; lower; abdomen; other (see comments) (miim drain); Sterile technique; 19 inch 12/28/18 1004 by Daniela Natarajan, ROSARIO Drain/Device Site 12/28/18; 1005; Righ t; lower; abdomen; other (see comments) (mimi drain); Sterile technique; 19 inch 12/28/18 1005 by Daniela Natarajan, ROSARIO documented in this encounter Social History Tobacco Use Types Packs/Day Years Used Date Smoking Tobacco: Never Smokeless Tobacco: Never Alcohol Use Standard Drinks/Week Comments Yes 7 (1 standard drink = 0.6 oz pur e alcohol) not while Sex and Gender Information Value Date Recorded Sex Assigned at Not on file Gender Identity Not on file Sexual Orientation Not on file documented as of this encounter OR Notes * Anesthesia Postprocedure Evaluation - Jese Briggs - 03/02/2015 3:51 PM EDT Patient: Spring Camacho Procedure(s) Performed: Procedure(s): @ DELIVERY @FALLOPIAN TUBE(S), TRANSECTION OR LIGATION, ABD APPROACH, POST- Actual Anesthetic: Combined Spinal Epidural Patient location: PACU Post-op pain: Adequate analgesia Post-op nausea: no nausea or vomiting Last Vitals: Filed Vitals: 03/02/15 1104 BP: 102/77 Pulse: 169 Temp: 36.7 ??C (98.1 ??F) Resp: Post-op cardiovascular and respiratory status: is stable Level of consciousness: awake, alert and oriented Complications: no apparent complications and tolerated the procedure well Fluid Status: normal documented in this encounter Plan of Treatment Not on file documented as of this encounter Visit Diagnoses Not on filedocumented in this encounter Care Teams Supervisor Vegetable Farming Relationship Specialty Start Date End Date Keyona Guevara MD [address] [place] [address] PCP - General 10/16/10 12/11/18 documented as of this encounter
--- OUTSIDE RECORDS SUMMARY | 2024-07-01 22:37 | XMS_ITS | Encounter Summary ---
Author Organization [facility] [place] [address] Care Team Providers Care Brilliandeer Looper Name Role Phone Megan Hayes APRN Primary Care Provider [phone] Reason for Visit * Auth/Cert Specialty Diagnoses / Procedures Referred By Omid funez Referred To Contact Diagnoses panni Procedures PRO SUCT ABHILASH LIPECTOMY, TRUNK PRO EXCISE EXCESS SKIN TISSUE, ABDOMEN, ADD-ON SUCTION ASSISTED LIPECTOMY,TRUNK (WRVU *) ABDOMINOPLASTY EXC,W/ UMBILICAL TRANSPOSITION, FASCIAL PLICATION (WRVU 17.04) Referral ID Status Reason Start Date Expiration Date Visits Re quested Visits Authorized [id number] 1 1 Encounter Details Date Type Department Care Team (Latest Contact Info) Description 2018 6:11 AM EST - 12/29/2018 10:20 AM EST Hospital [place] [id number] Otto Alexander MD [facility] [place] [address] Discharge Disposition: Home Social History Tobacco Use Types Packs/Day Years [...] AM EST Temperature 36.8 ??C (98.2 ??F) 12/29/2018 7:47 AM ES T Respiratory Rate 18 12/29/2018 7:47 AM EST [...] weighs 177 pounds. She hadanother consultation at [facility] about a year ago, but did not [...] drinks occasionally socially. 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 She has four adopted children. Recommendations: Breast [...] clots or pulmonary complications. She was provided [facility] brochures and informed consent documents on both [...] DELIVERY performed by Griselda Willson MD at [facility] ??? PRO EXCISE EXCESS SKIN TISSUE, ABDOMEN, ADD-ON N/A 2018 ABDOMINOPLASTY EXC,W/ UMBILICAL TRANSPOSITION, FASCIAL PLICATION (WRVU 17.04) performed by Otto Alexander MD at [facility] MAIN OR ??? PRO LIGATE FALLOPIAN TUBE, N/A 03/01/2015 @FALLOPIAN TUBE(S), TRANSECTION OR LIGATION, ABD APPROACH, POST- performed by Griselda Willson MD at [facility] ??? PRO SUCT ABHILASH LIPECTOMY, TRUNK N/A 2018 SUCTION ASSISTED LIPECTOMY,TRUNK (WRVU *) performed by Otto Alexander MD at [facility] MAIN OR ??? TONSILLECTOMY AND ADENOIDECTOMY 2012 [...] them with you. Narcotics: Opio[place] 10/06/2018 [place] Query Date 12/29/2018 [place] QUERY DATE: 12/29/18 Risk Assessment Category: [...] scheduling, please contact our administrative offices at [phone]. For clinical questions, please call our nurses at [phone]. Both offices are open Friday thru Friday 8a - 5p. With emergencies after hours, call the hospital wet machine operator at [phone] and ask for the Plastic Surgery Resident agronomy professor. Scheduled Appointments: Future Appointments Date Time Provider Department Center 01/05/2019 10:00 AM NURSE, PLASTIC SURGERY Dalton Cao 4M [facility] Outpatient Services/Studies: No discharge procedures on [...] from each drain. Call the clinic at [phone] and schedule an appointment with the nurses [...] office hours: Friday - Friday 8am-5pm call [phone]. On weekends or after hours call [phone] and ask the wet machine operator to page the plastic surgery resident agronomy professor. PAIN MEDICATION: You may take tylenol and ibuprofen for pain. Take your narcotic pain medication as needed and try to taper of this as quickly as possible. Take a stool softener or laxative while you are on narcotic pain medication. CONTACT INFORMATION: During office hours (Friday through Friday 8 am to 5 pm): Call [phone]. On weekends or after hours: Call [phone] and ask the wet machine operator to speak to the Plastic Surgery Resident on-call. FOLLOW-UP APPOINTMENTS: Your follow-up has been scheduled: Future Appointments Date Time Provider Department Center 01/05/2019 10:00 AM NURSE, PLASTIC SURGERY Dalton Cao [facility] General Instructions None Future Appointments and Orders Future Appointments and Orders Future Appointments Provider Department Dept Phone 01/05/2019 10:00 AM NURSE, PLASTIC SURGERY Plastic Surgery at [place] Arrive at: Image Processing Engineer Area 4M [phone] Call your doctor if: Please call your doctor immediately or go to an Emergency Department if you notice worsening pain not controlled by pain medications, uncontrolled headache, vision changes, chest pain, difficulty breathing, persistent nausea and vomiting, new redness or swelling in any extremities, new onset weakness or changes in sensation, or for any fevers greater than 100.4 or 38 F. Signed: ADAMARIS Naraaynan 12/29/2018 Plastic Surgery Nursing Orders: - Abdominal [...] from each drain. Call the clinic at [phone] and schedule an appointment with the nurses [...] office hours: Friday - Friday 8am-5pm call [phone]. On weekends or after hours call [phone] and ask the wet machine operator to page the plastic surgery resident agronomy professor. PAIN MEDICATION: You may take tylenol and ibuprofen for pain. Take your narcotic pain medication as needed and try to taper of this as quickly as possible. Take a stool softener or laxative while you are on narcotic pain medication. CONTACT INFORMATION: During office hours (Friday through Friday 8 am to 5 pm): Call [phone]. On weekends or after hours: Call [phone] and ask the wet machine operator to speak to the Plastic Surgery Resident on-call. FOLLOW-UP APPOINTMENTS: Your follow-up has been scheduled: Future Appointments Date Time Provider Department Center 01/05/2019 10:00 AM NURSE, PLASTIC SURGERY Dalton Cao [facility] documented in this encounter Medications at [...] of this encounter Progress Notes * Melanie Erickson RN - 12/29/2018 10:07 AM EST VS [...] time. Pt left facility via wheelchair,accompanied by MANAGER MEMBERSHIP. * Otto Alexander MD - 12/29/2018 7:15 [...] AM NURSE, PLASTIC SURGERY Dalton Plas [facility] Dispo: -[facility]: services not required Code Status: Full Code ADAMARIS Narayanan Plastic Surgery Team Pager: [phone] 12/29/2018 Attending: Plan discussed and agree as [...] on RTside 40cc. Patient will attempt later Melanie Salcedo RN - 2018 12:04 PM EST 1150 [...] above 30 degrees at all times Pain: 2 Vascular Access: IV in RUE no s/s [...] DELIVERY performed by Griselda Willson MD at [facility] ??? PRO LIGATE FALLOPIAN TUBE, N/A 03/01/2015 @FALLOPIAN TUBE(S), TRANSECTION OR LIGATION, ABD APPROACH, POST- performed by Griselda Willson MD at [facility] ??? TONSILLECTOMY AND ADENOIDECTOMY 2013 Allergies Allergen [...] Not on file Occupational History ??? 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 Smoking status: Never [...] (POWER ASSISTED LIPOSUCTION) No flowsheet data found. [place] QUERY DATE: 12/28/18 Risk Assessment Category: [...] Alexander MD - 2018 10:38 AM EST [facility] Operative Note Patient Name: Spring Camacho : [id number] MR#: [id number] Case Date: 2018 Surgeon: Surgeon(s) and Role: * Otto Alexander MD - Primary * Nic Poe MD - Resident-Surgeon Napoleon Registered Nurse Car Tester: Ruth Connolly RN Preoperative diagnosis: panni Postoperative [...] 15-blade and the umbilical stalk developed with Nick scissor dissection down to the fascia. Centrally, [...] EST Brief Operative Note Patient Name: Spring Camacho : [id number] MR#: [id number] Case Date: 2018 Surgeon: Surgeon(s) and Role: * Otto Alexander MD - Primary * Nic Poe MD - Resident-Surgeon Napoleon * [facility] Preoperative diagnosis: panni Postoperative diagnosis: panni Procedure(s) [...] Center 01/05/2019 10:00 AM NURSE, PLASTIC SURGERY Leb Plas [facility] documented in this encounter Plan of [...] Glucose, POC 112 65 - 199 mg/dL [facility] Comment: Supplemental ranges: <140 mg/dL before meals <180 mg/dL all other times of the day Blood specimen (specimen) 2018 6:42 AM EST 2018 6:42 AM EST Otto Alexander MD POINT OF CARE TEST O RDERABLES [facility] [place] [id number] documented in this encounter Visit Diagnoses Diagnosis Abdominal pannus Localized adiposity documented in this encounter Admitting Diagnoses Diagnosis Abdominal [...] Procedure), Routine 0720 (Given - Provider: Della Mccain RN) acetaminophen (TYLENOL) tablet 1,000 mg 1,000 mg, Oral, EVERY 8 HOURS SCHEDULED, First dose on Fri12/28/18 at 1400, Until Discontinued, Maximum total acetaminophen dose 4 grams per 24 hours., Routine 1312 (Given - Provider: Melanie Hodges RN)2152 (Given - Provider: Mary Kay Spencer RN) 610 (Given - Provider: Sherri Burnham RN) citalopram (CeleXA) tablet 20 mg 20 mg, Oral, DAILY, First dose on Fri12/29/18 at 0900, Until Discontinued, Routine 0834 (Given - Provid er: Melanie Erickson RN) docusate sodium (COLACE) capsule 100 mg 100 mg, Oral, 2 TIMES DAILY, First dose on Fri12/28/18 at 1230, Until Discontinued, Routine 1312 (Given - Provider: Melanie Hodges RN)2012 (Given - Provider: Sherri Burnham, ROSARIO) 0834 (Given - Provider: Melanie Erickson, RN) enoxaparin (LOVENOX) injection 40 mg 40 mg, Subcutaneous, NIGHTLY, First dose on Fri12/28/18 at 2100, Until Discontinued, Routine 2013 (Given - Provider: Sherri Burnham, RN) HYDROmorphone (DILAUDID) tablet 2 mg (COMPLETED) 2 mg, Oral, ONCE, 1 dose, On Fri12/28/18 at 1430, Routine 1424 (Given - Provider: Melanie Hodges RN) lactobacillus with pectin 1 capsule 1 capsule, [...] AM) 0718 (Given - Provider: Melanie Erickson, RN) sodium chloride 0.9 % flush 5 mL 5 mL, Intravenous, 2 TIMES DAILY, First dose on Fri12/28/18 at 1115, Until Discontinued, Recovery (Recovery-Hospital Unit), Routine 1311 (Given - Provider: Melanie Hodges RN)2016 (Given - Provider: Sherri Burnham, ROSARIO) 0835 (Given - Provider: Melanie Erickson, RN) spironolactone (ALDACTONE) tablet 25 mg 25 mg, Oral, 2 TIMES DAILY, First dose on Fri12/28/18 at 1800, Until Discontinued, Routine 1757 (Given - Provider: Melanie Hodges RN) 0834 (Given - Provider: Melanie Erickson, RN) Continuous Medication Order 12/27/2018 2018 12/29/2018 lactated Ringers infusion 1,000 mL (CANCELED) 1,000 mL, at 100 mL/hr, Intravenous, CONTINUOUS, Starting on Fri12/28/18 at 0730, Until Fri12/28/18 at 1142, Day of Surgery (Day of Procedure) 0730 (New Bag - Provider: Della Mccain RN) lactated Ringers infusion 1,000 mL () 1,000 mL, at 100 mL/hr, Intravenous, CONTINUOUS, Starting on Fri12/28/18 at 1115, Until Fri12/28/18 at 2114, Recovery (Recovery-Hospital Unit) 1103 (New Bag - Provider: Kathy Fournier, ROSARIO)1314 (Continued Bag - Provider: Melanie Hodges, ROSARIO)2153 (Stopped - Provider: Mary Kay Spencer RN) [...] Nay Fournier, ROSARIO)1138 (Given - Provider: Nay Fournier RN) HYDROmorphone (DILAUDID) tablet 2-4 mg 2-4 mg, [...] Burnham, RN) 0719 (Given - Provider: Melanie Erickson, ROSARIO) lidocaine (XYLOCAINE) 10 mg/mL (1 %) injection [...] Unit) documented in this encounter Care Teams Brilliandeer Looper Relationship Specialty Start Date End Date Megan Hayes APRN PCP - General Family Medicine 12/12/18 06/23/19 documented as of this encounter
--- OUTSIDE RECORDS SUMMARY | 2024-07-01 22:37 | XMS_ITS | Encounter Summary ---
Author Organization [facility] Address [address] [place] [address] Care Team Providers Care Retail Merchandising Specialist Name Role Phone Chantel Cook MD Primary Care Provider [phone] Encounter Details Date Type Department Care Team (Late st Contact Info) Description 08/09/2013 Results Only [facility]- [facility] [phone] Santana Faustin MD [address] [place] [address] Social History Tobacco Use Types Packs/Day Years [...] Diagnosis Comments PAP TEST- RESULT ONLY Routine 08/09/2013 0:00 EDT documented in this encounter Results * PAP TEST- RESULT ONLY (08/09/2013 0:00 EDT) Pathology Report: CYTOPATHOLOGY REPORT Reports generated via electronic interface contain original data; however they are lacking the format of the original report. Caution should be taken when reading/interpreti ng unformatted reports. Name: ? MARTINEZ CAMACHO ? Accession #: ? [id number] : ? 1985 (Age: 27) ??F ?Collect Date: ? 08/09/2013 Location: ? [facility] ? Receive Date: ? 08/11/2013 Provider: ?SANTANA FAUSTIN MD Copy to: ?CHANTEL COOK MD ? Specimen/Source: ?Pap Test, Cervix/Endocervix, ThinPrep Imaging System with manual evaluation Last Menstrual Period: ? Other: ? Additional clinical information: Screening - normal Paps ? SPECIMEN ADEQUACY ? Satisfactory for Evaluation - transformation zone component present GENERAL CATEGORIZATION ? Negative for Intraepithelial Lesion or Malignancy ? Document reviewed and electronically signed by: ? MARIA DEL CARMEN Handley(ASCP) ? Report Date: ??08/12/2013 16:12 End of Report LUCINDA YOUNG 08/09/2013 08/11/2013 Santana Faustin MD PATHOLOGY ORDERABLES Performing Organization Address City/State/[facility] Co de Phone Number [facility] [address] [place] [address] documented in this encounter Visit Diagnoses Not on filedocumented in this encounter Care Teams Retail Merchandising Specialist Relationship Specialty Start Date End Date Chantel Cook MD [address] [place] [phone] PCP - General 04/14/12 06/24/17 documented as of this encounter
--- OUTSIDE RECORDS SUMMARY | 2024-07-01 22:37 | XMS_ITS | Encounter Summary ---
Author Organization [facility] Address [address] [place] [address] Care Team Providers Care Paid Search Marketing Analyst Name Role Phone Susie Khan NP Primary Care Provider [phone] Encounter Details Date Type Department Care Team (Late st Contact Info) Description 01/16/2021 Lab Requisition [facility] Pathology & Laboratory Medicine - [address] [address] Yvonne Burnham [address] [place] [phone] Encounter for other general examination Social History Tobacco Use Types Packs/Day Years [...] Priority Date/Time Associated Diagnosis Comments SURGICAL PATHOLOGY Today 01/16/2021 14 :25 EST Encounter for other general examination documented in this encounter Results * SURGICAL PATHOLOGY (01/16/2021 14:25 EST) Final Diagnosis A. ENDOMETRIUM, BIOPSY: - Extensive gland and stromal breakdown. 01/19/2021 9:40 EST [facility] Attestation There was significant resident/fellow involvement in the diagnostic evaluation of this case. By the signature below, the attending physician certifies that they have personally conducted a gross and/or microscopic examination of the described specimens and rendered or confirmed the above diagnosis. 01/19/2021 9:40 [facility] at 0940 Clinical History DUB 01/19/2021 9:40 [facility] Gross Description A. Received in formalin labelled with proper patient identification (initials B, P) and endometrium is an aggregate of braun-brown opaque mucinous soft tissue (2.7 x 2.2 x 0.4 cm). The specimen is submitted entirely in A1 to A3. ADAMARIS RODRIGUEZ(ASCP) 01/17/2021 8:23 01/19/2021 9:40 [facility] Resident/Hernandez w: Ja Whaley MD 01/19/2021 9:40 [facility] Performing Lab [facility] 01/19/2021 9:40 [facility] Scanned Images 01/19/2021 9:40 [facility] Tissue ENTIRE ENDOMETRIUM / Unknown 01/16/2021 14:25 EST 01/16/2021 22:33 EST Yvonne Burnham PATHOLOGY ORDERABLES Performing Organization Address City/State/[facility] Co de Phone Number [facility] [address] [place] [address] documented in this encounter Visit Diagnoses Diagnosis Encounter for other general examination documented in this encounter Care Teams Paid Search Marketing Analyst Relationship Specialty Start Date End Date Susie Khan NP [place] [place] [address] PCP - General 01/16/21 documented as of this encounter
--- OUTSIDE RECORDS SUMMARY | 2024-07-01 22:37 | XMS_ITS | Encounter Summary ---
Author Organization [facility] Address [address] [place] [address] Care Team Providers Care Recruiting Internship Name Role Phone Keyona Guevara MD Primary Care Provider [phone] Encounter Details Date Type Department Care Team (Late st Contact Info) Description 04/10/2017 Results Only [facility]- [facility] [phone] Santana Faustin MD [address] [place] [address] Social History Tobacco Use Types Packs/Day Years [...] Diagnosis Comments PAP TEST- RESULT ONLY Routine 04/10/2017 0:00 EDT documented in this encounter Results * PAP TEST- RESULT ONLY (04/10/2017 0:00 EDT) Pathology Report: CYTOPATHOLOGY REPORT Reports generated via electronic interface contain original data; however they are lacking the format of the original report. Caution should be taken when reading/interpreti ng unformatted reports. Name: ? MARTINEZ CAMACHO ? Accession #: ? [id number] ? : ? 1985 (Age: 31) ??F ?Collect Date: ? 04/10/2017 ? Location: ? [facility] ? Receive Date: ? 04/11/2017 ? Provider: SANTANA FAUSTIN MD Copy to: TY ALCARAZ PEST CONTROL PILOT ? Final Report SPECIMEN ADEQUACY ? Satisfactory for Evaluation - transformation zone component present GENERAL CATEGORIZATION ? Negative for Intraepithelial Lesion or Malignancy ?? Menstrual/Pregnanc y Status: ??Menometrorrhagia Hormonal/Contracep tive status: Oral contraceptives: breakthrough bleeding Other: Previous NIL Pap(s): 2014 Specimen/Source: ??Pap Test, Cervix, ThinPrep Imaging System with manual evaluation Document reviewed and electronically signed by: ? Sherri Christian, [facility](ASCP) ? Report ??Date: 04/23/2017 10:50 HPV with Pap Test ? Date Ordered: ? 04/23/2017 ? Status: ?? Signed Out ?Date Complete: ? 04/24/2017 ? By: ??System Interface ? Date Reported: ? 04/24/2017 ? Interpretation RESULT: Negative for HPV. No E6 or E7 mRNA is detected from HPV types 16,18,31,33,35, 39,45,51,52,56,58, 59,66, and 68 by administration specialist mediated amplification. Comments Document reviewed and electronically signed by: ? System Interface ? Report date: 04/24/2017 By the signature above, the attending physician certifies that he/she has personally conducted a gross and/or microscopic examination of the described specimens and rendered or confirmed the above diagnosis. End of Report [facility] 04/10/2017 04/11/2017 Santana Faustin MD PATHOLOGY ORDERABLES [facility] [address] [place] [address] documented in this encounter Visit Diagnoses Not on filedocumented in this encounter Care Teams Recruiting Internship Relationship Specialty Start Date End Date Keyona Guevara MD [address] [place] [phone] PCP - General 04/14/12 06/24/17 documented as of this encounter
--- OUTSIDE RECORDS SUMMARY | 2024-07-01 22:37 | XMS_ITS | Encounter Summary ---
Author Organization [facility] Address [address] [place] [address] Care Team Providers Care Hvac Technician Residential Name Role Phone Susie Khan NP Primary Care Provider [phone] Encounter Details Date Type Department Care Team (Late st Contact Info) Description 02/21/[address] [facility] Pathology & Laboratory Medicine - [address] [address] Yvonne Burnham [address] [place] [phone] Encounter for other general examination Social History [...] Date/Time Associated Diagnosis Comments SURGICAL PATHOLOGY Today 02/21/2021 9: 35 EDT Encounter for other general examination documented in this encounter Results * SURGICAL PATHOLOGY (02/21/2021 9:35 EDT) Final Diagnosis A. UTERUS, CERVIX, AND FALLOPIAN TUBES, HYSTERECTOMY AND BILATERAL SALPINGECTOMY: - Endometrium: - Proliferative. 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 - Cervix: - No specific pathologic features. - Serosa: - No specific pathologic features. - Fallopian tubes: - Fragmented fallopian tubes consistent with prior ligation. 02/26/2021 15:21 [facility] Attestation There was significant resident/fellow involvement in the diagnostic evaluation of this case. By the signature below, the attending physician certifies that they have personally conducted a gross and/or microscopic examination of the described specimens and rendered or confirmed the above diagnosis. 02/26/2021 15:21 [facility] at 1521 Clinical History Abnormal uterine bleeding 02/26/2021 15:21 [facility] Gross Description A. Received in formalin labelled with proper patient identification (initials P, B) and uterus, cervix, bilateral fallopian tubes is an intact uterus and cervix (92 g, 9.1 cm fundus to cervix x 6.1 cm cornu to cornu x 4.6 cm anterior to posterior), an attached segment of left fallopian tube (1.0 cm in length x 0.6 cm in diameter), an attached segment of right fallopian tube (1.5 cm in length x 0.6 cm in diameter), two detached fimbriated fallopian tube segments (3.0 cm in length x 0.7 cm in diameter and 4.0 cm in length x 0.8 cm in diameter), and a segment of fallopian tube without fimbria (2.3 cm in length x 0.8 cm in diameter). The ovaries are not present. The uterine serosa is smooth and braun-brown. The ectocervix is pretty-white with a central ovoid os (0.9 cm in diameter). The uterus is bivalved to reveal a braun-white furrowed endocervical canal and a red-brown endometrium with a 0.1 cm thickness. The myometrium is braun-pink with a 2.6 cm maximum thickness. A well-circumscribe d rubbery submucosal nodule (0.4 x 0.3 x 0.3 cm) is identified, having a braun-white whorled cut surface devoid of hemorrhagic areas or necrosis. The fallopian tubes have smooth braun-pretty serosa and braun-white cut surfaces with lumina ranging from pinpoint to 0.3 cm in diameter at the proximal attached portions. Engine Head Repairer sections are submitted as follows: BLOCK BRADEN A1- anterior cervix A2- posterior cervix A3- anterior endomyometrium A4- posterior endomyometrium A5- entire submucosal nodule A6- entire fimbria and cross-section of shorter tube A7- entire fimbria and cross-section of longer tube A8- cross-section of attached left tube A9- cross-section of attached right tube ADAMARIS GANDARA(ASCP) 02/22/2021 10:36 02/26/2021 15:21 EDT [facility] Resident/Hernandez w: Danyell Espinoza MD 02/26/2021 15:21 EDT [facility] Performing Lab [facility] 02/26/2021 15:21 EDT [facility] Scanned Images 02/26/2021 15:21 EDT [facility] Tissue SPECIMEN FROM UTERUS / Unknown 02/21/2021 9:35 EDT 02/21/2021 16:33 EDT Yvonne Burnham PATHOLOGY ORDERABLES [facility] [address] [place] [address] documented in this encounter Visit Diagnoses Diagnosis Encounter for other general examination documented in this encounter Care Teams Hvac Technician Residential Relationship Specialty Start Date End Date Susie Khan NP [address] [place] [address] PCP - General 01/16/21 documented as of this encounter
--- OUTSIDE RECORDS SUMMARY | 2024-07-01 22:37 | XMS_ITS | Encounter Summary ---
Author Organization [facility] Address [facility] [place] [address] Care Team Providers Care Senior Foreman Name Role Phone Megan Hayes APRN Primary Care Provider [phone] Reason for Visit * Reason Comments Follow Up Surgery s/p abdominoplasty, flank liposuction dos 12/28 Encounter Details Date Type Department Care Team (Late st Contact Info) Description 04/14/2019 8:00 AM EDT [place] [address] Otto Alexander MD [facility] [place] [address] Surgery follow-up; S/P abdominoplasty Social History Tobacco Use Types Packs/Day Years [...] this encounter Patient Instructions * Patient Instructions* Sumaya Fatima RN - 04/14/2019 8:00 AM EDT You were given written and verbal preoperative instructions today. To prepare for your upcoming surgery, please review the Pre-Operative Instruction brochure that youwere given at today's appointment. Remember to do the pre op wash as instructed, remove all jewelry, and wear clothing that is easy toget in and out of. There is no dietary restriction. You may eat and drink up until the time of your procedure. Feel free to call our office [phone] if you have any questions or concerns. We monitor the phones from 8-5 Friday through Friday. documented in this encounter Progress Notes * Otto Alexander MD - 04/14/2019 8:00 AM EDT Plastic Surgery Post Op Note Reason for visit: F/U status post procedure Date of surgery: 2018 Procedure(s): Abdominoplasty, flank liposuction Complications: None reported HPI: Pt reports she has been well since surgery. She is overall very pleased with her result. She notes an area of tissue irregularity and folding at the incision line beneath the umbilicus. Examination: There were no vitals taken for this visit. Patient is alert, conversant, comfortable, ambulating Well healed abdominoplasty incision Slight asymmetry incision line R side sitting lower than L Vertical incision at T from umbilical repositioning is depressed with contour irregularity. Good contour overall Impression: Spring Camacho is a 33 y.o. female who was seen today for follow-up after the above procedure. Please see the operative note for details. She is doing well. She is very well-healed to date overall. We discussed the region of asymmetry along her abdominal incision line. I feel this can be revised to improve the contour and reduce folding that is present. This could be performed as a minor procedure in office. We could consider this around the 5-6 month barbara post-operatively. We reviewed post-op restrictions including no heavy lifting for 2-3 weeks after the revision. She would like to proceed with scheduling for this. Plan: Schedule for MSO revision MNS Procedure: Revision to abdominoplasty incision ~ fee waived per , only room fee~ Timeframe: May/Jun or later Time allotted: 90 mins CPT: 77394 Follow up: 7-10 days Abbie ALVAREZ, have performed the documentation for this encounter in the presence of and acting as a scribe for OTTO ALEXANDER MD. I performed the services which were documented by the scribe, and I agree with the accuracy of the documentation in this encounter. OTTO ALEXANDER MD documented in this encounter Plan of Treatment Not on file documented as of this encounter Visit Diagnoses Diagnosis Surgery follow-up Follow-up examination, following unspecified surgery S/P abdominoplasty Other postprocedural status documented in this encounter Care Teams Senior Foreman Relationship Specialty Start Date End Date Megan Hayes APRN PCP - General Family Medicine 12/12/18 06/23/19 documented as of this encounter
--- OUTSIDE RECORDS SUMMARY | 2024-07-01 22:37 | XMS_ITS | Encounter Summary ---
Author Organization [facility] Address [facility] [place] [address] Care Team Providers Care Laboratory Operations Coordinator Name Role Phone Megan Hayes APRN Primary Care Provider [phone] Reason for Visit * Auth/Cert Specialty Diagnoses / Procedures Referred By Omid t Referred To Contact Diagnoses panni Procedures PRO SUCT ABHILASH LIPECTOMY, TRUNK PRO EXCISE EXCESS SKIN TISSUE, ABDOMEN, ADD-ON SUCTION ASSISTED LIPECTOMY,TRUNK (WRVU *) ABDOMINOPLASTY EXC,W/ UMBILICAL TRANSPOSITION, FASCIAL PLICATION (WRVU 17.04) Referral ID Status Reason Start Date Expiration Date Visits Re quested Visits Authorized [id number] 1 1 Encounter Details Date Type Department Care Team (Late st Contact Info) Description 2018 7:39 AM EST Anesthesia Event [place] [address] Catrachito Deleon MD [facility] DR [place] [address] Syed Jeffrey MD [facility] [place] [address] Anesthesia Record Procedure Summary Procedure Name Responsible Anesthesiologist Anesthesia Start Time Anesthesia Stop Time SUCTION ASSISTED LIPECTOMY,TRUNK (WRVU 4.95) (Flank) Catrachito Deleon MD 12/28/18 0739 12/28/18 1102 Events Date Time Event Comment 2018 0729 0739 AN Verify 0739 Start 0739 An Start Data 0751 An Induction 0751 An Intubation 0751 Anesthesia Ready 0854 Quick Note Surgeon request ing relaxation for procedure. Exchanging LMA for ETT 0900 An Intubation 1047 Extubation/LMA Out 1051 an stop data 1102 Recovery or ICU Handoff Valeria ent care was transferred to the destination unit staff after review of the patient's medical history, current anesthetic/surgical status and plan, according to the Provider Handoff Checklist. 1102 Stop Meds Name Total fentaNYL 100 mcg Midazolam 2 mg Dexamethasone 4 mg Ondansetron 4 mg PHENYLephrine 400 mcg Propofol 430 mg Propofol INF 527.96 mg Clindamycin 600 mg Rocuronium 50 mg HYDROmorphone 0.4 mg Neostigmine 3 mg Glycopyrrolate 0.4 mg Lactated Ringers 1,500 mL * Agents Name O2 Air N2O Sevoflurane (et) * Blood No blood administrations on file. Lines, Drains, and Airways Type Details Placement Removal Drain/Device Site 12/28/18; 1004; Left ; lower; abdomen; other (see comments) (mimi drain); Sterile technique; 19 inch 12/28/18 1004 by Daniela Natarajan RN Drain/Device Site 12/28/18; 1005; Righ t; lower; abdomen; other (see comments) (mimi drain); Sterile technique; 19 inch 12/28/18 1005 by Daniela Natarajan RN (RETIRED By SPR20) Incision 03/01/15; 12/28/18; 1021 03/01/15 0000 by Mayra Diamond RN 12/28/18 1021 by Nay Fournier RN (RETIRED) Peripheral IV Line - Single Lumen 12/28/18; 0728; median cubital vein (antecubital fossa), right; [id number] catheter system; 20 gauge; Della Mccain RN; intradermal injection; 12/29/18; 0909 12/28/18 0728 by Della Mccain RN 12/29/18 0909 by Melanie Erickson, RN Supraglottic Mask Ventilation: Ea sy (1); LMA Type: iGel; LMA Size: 3; Inserted by: jeffrey; Removal Date: 12/28/18; Removal Time: 10412/28/18 0751 by Syed Jeffrey MD 12/28/18 104 by Syed Jeffrey MD Urethral Catheter 12/28/18; 0759; Physician order; Physician order; indwelling single lumen catheter; 100% silicone; 14; inserted at this facility; 2; 10; 8; none; drainage bag to dependent drainage; 12/28/18; 1040 12/28/18 0759 by Daniela Natarajan RN 12/28/18 1040 by Daniela Natarajan RN Incision 12/28/18; 0816; abdomen; 07/22/22 (LDA cleanup utility RA#[id number]); 1715 (LDA cleanup utility RA#[id number]) 12/28/18 0816 by Daniela Natarajan RN 07/22/22 1715 by Manohar Hansen ETT ETT Type: Cuffed; ET T Size: 7 mm; Mac Blade: 3; Notes: Stylette, Asleep, Pre-O2; Attempts: 1; Laryngoscopy Grade: 1; ETT Placement Verified By: Auscultation, Capnometry; Secured at Teeth: 22 cm; Inserted by: Wojciech ; Removal Date: 12/28/18; Removal Time: 104612/28/18 0857 by Syed Jeffrey MD 12/28/18 104 by Syed Jeffrey MD documented in this encounter Social History Tobacco [...] OR Notes * Anesthesia Postprocedure Evaluation - Syed Jeffrey MD - 2018 11:02 AM EST [facility] Department of Anesthesiology Post-procedure Note Patient: Spring Camacho Procedure Summary Date: 12/28/18 Room / Location: [facility] MAIN OR Anesthesia Start: 0739 Anesthesia Stop: 1102 Procedures: SUCTION ASSISTED LIPECTOMY,TRUNK (WRVU *) (N/A Flank) ABDOMINOPLASTY EXC,W/ UMBILICAL TRANSPOSITION, FASCIAL PLICATION (WRVU 17.04) (N/A Abdomen) MODIFIER, PAL (POWER ASSISTED LIPOSUCTION) (N/A Flank) Diagnosis: (panni) Surgeon: Otto Quinn MD Responsible Provider: Catrachito Deleon MD Anesthesia Type: general ASA Status: 2 All Anesthesia Providers: Anesthesiologist: Catrachito Deleon MD Milk Sampler: Syed Jeffrey MD Vitals Value Taken Time BP 112/85 2018 11:00 AM Temp Pulse 79 2018 11:01 AM Resp 17 2018 11:01 AM SpO2 99 % 2018 11:01 AM Pain Level 5 2018 11:00 AM Vitals shown include unvalidated device data. Patient Location: PACU/[facility] Level of Consciousness: Conscious but Sleepy Pain Management: Satisfactory Analgesia PONV: None Cardiovascular Status: Hemodynamically Stable and At Baseline Respiratory Status: Supplemental O2 (NC or FM) Postoperative Fluid Status: Possible Anesthetic Complications: NONE apparent at time of evaluation Final Primary Anesthesia Type: General (The anesthetic type performed was the same as planned.) Comments: Associated attestation - Catrachito Deleon MD - 01/02/2019 3:02 PM EST I agree with Dr. Jeffrey. Patient did well intra-op. No issues in recovery as well. * Anesthesia Preprocedure Evaluation - Catrachito Deleon MD - 12/27/2018 5:00 PM EST Pre-Anesthesia Evaluation for: Spring Camacho a 32 y.o. female. Procedure(s): SUCTION ASSISTED LIPECTOMY,TRUNK (WRVU *) ABDOMINOPLASTY EXC,W/ UMBILICAL TRANSPOSITION, FASCIAL PLICATION (WRVU 17.04) MODIFIER, PAL (POWER ASSISTED LIPOSUCTION) Patient Active Problem List Diagnosis ??? hemorrhage At time of rCS and BTL, EBL 1000 ml ??? GDMA2 on insulin ??? Previous delivery affecting ??? with third trimester bleeding, antepartum ??? Supervision of high risk in second trimester Team MFM Delivery plan GBS date & Result Cystic fibrosis choice Decline Aneuploidy choice Decline Others screening tests echocardiogram nutrition Childbirth education preferences Contraception plan Possible BTL Ped/circ plans Immunizations: Influenza vaccine Accepted Declined Contraindicated Other vaccines Indicated Not indicated Given during Tdap Pneumovax MMR Varicella Other ??? Gestational diabetes Past Medical History: Diagnosis Date ??? Depression [...] DELIVERY performed by Griselda Willson MD at [facility] ??? PRO LIGATE FALLOPIAN TUBE, N/A 03/01/2015 @FALLOPIAN TUBE(S), TRANSECTION OR LIGATION, ABD APPROACH, POST- performed by Griselda Willson MD at [facility] ??? TONSILLECTOMY AND ADENOIDECTOMY 2012 Social History Tobacco Use ??? Smoking status: Never Smoker ??? Smokeless tobacco: Never Used Substance Use Topics ??? Alcohol use: Yes Alcohol/week: 4.2 oz Types: 7 Glasses of wine per week Comment: not while Social History Substance and Sexual Activity Drug Use No Allergies Allergen Reactions ??? Penicillins CIS - Mouth swelling, difficulty breathing Medications: MAR and/or home medications have been reviewed. Physical Exam: There were no vitals filed for this visit. There is no height or weight on file to calculate BMI. Airway Assessment: Mallampati: I TM distance: >3 FB Neck ROM: full Cardiovascular Assessment: Rhythm: regular Rate: normal (-) murmur cardiovascular exam normal Pulmonary Assessment: breath sounds clear to auscultation pulmonary exam normal Dental Assessment: - normal exam Misc Assessment: IV access: Peripheral line Anesthesia Plan: ASA 2 general, with a(n) intravenous induction Preliminary Note 32 y.o. female presenting for mastopexy, abdominoplasty, and liposuction. PMH significant for PCOS (on metformin and spironolactone). Anesthetic hx: No reported prior complications with anesthesia Airway hx: no records Exercise tolerance: ??? Lab Results Component Value Date HGB 11.7 03/02/2015 PLATELET 153 03/02/2015 INR 0.9 03/01/2015 CREATININE 0.53 (L) 01/27/2015 No results for input(s): ABORH in the last 7068 hours. Allergies: -- Penicillins -- CIS - Mouth swelling, difficulty breathing NPO Status: Appropriate Anesthetic Plan: GA with LMA, standard monitors, PIV The patient was informed of the risks, benefits and alternatives of anesthesia. These risks included, but were not limited to, post-operative nausea and/or vomiting, pain, sore throat, dental/lip trauma, and other rare but serious complications such as major organ damage, awareness, severe allergicreactions, position-related nerve injuries, and need blood transfusions. All questions were sought and answered. Consent was signed and placed in chart. Region - Other Informed Consent: Anesthetic plan and risks discussed with patient. Use of blood products discussed with patient who. Plan discussed with resident and attending. PAT Staff Note documented in this encounter Plan of Treatment Not on file documented as of this encounter Visit Diagnoses Not on filedocumented in this encounter Administered Medications Inactive Administered Medications - up to 3 most recent administrations Medication Order MAR Action Action Date Dose Rate Site clindamycin (CLEOCIN) injection PRN, Starting on Fri12/28/18 at 0815, Until Fri12/28/18 at 1102, Anesthesia Intra-op, Routine Given 2018 8:15 AM EST 600 mg dexamethasone (DECADRON) injection Intravenous, PRN, Starting on Fri12/28/18 at 0751, Until Fri12/28/18 at 1102, Anesthesia Intra-op, Routine Given 2018 7:51 AM EST 4 mg fentaNYL 50 mcg/mL multi-dose injection Intravenous, PRN, Starting on Fri12/28/18 at 0818, Until Fri12/28/18 at 1102, Anesthesia Intra-op, Routine Given 2018 8:57 AM EST 25 mcg Given 2018 8:38 AM EST 25 mcg Given 2018 8:22 AM EST 25 mcg glycopyrrolate (ROBINUL) multi-dose injection PRN, Starting on Fri12/28/18 at 1010, Until Fri12/28/18 at 1102, Anesthesia Intra-op, Routine Given 2018 10:10 AM EST 0.4 mg HYDROmorphone (DILAUDID) injection PRN, Starting on Fri12/28/18 at 0949, Until Fri12/28/18 at 1102, Anesthesia Intra-op, Routine Given 2018 9:53 AM EST 0.2 mg Given 2018 9:49 AM EST 0.2 mg lactated Ringers infusion CONTINUOUS PRN, Starting on Fri12/28/18 at 0739, Until Fri12/28/18 at 1102, Anesthesia Intra-op New Bag 2018 9:40 AM ES T New Bag 2018 7:39 AM EST midazolam (PF) (VERSED) multi-dose injection Intravenous, PRN, Starting on Fri12/28/18 at 0739, Until Fri12/28/18 at 1102, Anesthesia Intra-op, Routine Given 2018 7:39 AM EST 2 mg neostigmine (BLOXIVERZ) injection PRN, Starting on Fri12/28/18 at 1013, Until Fri12/28/18 at 1102, Anesthesia Intra-op, Routine Given 2018 10:13 AM EST 3 mg ondansetron (ZOFRAN) injection Intravenous, PRN, Starting on Fri12/28/18 at 1005, Until Fri12/28/18 at 1102, Anesthesia Intra-op, Routine Given 2018 10:05 AM EST 4 mg PHENYLephrine in NS (PF) (ALDEN-SYNEPHRINE) 0.8 mg/10 mL (80 mcg/mL) multi-dose injection Syrg PRN, Starting on Fri12/28/18 at 0753, Until Fri12/28/18 at 1102, Anesthesia Intra-op, Routine Given 2018 9:56 AM EST 40 mcg Given 2018 9:33 AM EST 80 mcg Given 2018 9:24 AM EST 40 mcg propofol (DIPRIVAN) 10 mg/mL bolus injection (Anesthesia) PRN, Starting on Fri12/28/18 at 0751, Until Fri12/28/18 at 1102, Anesthesia Intra-op Given 2018 8:50 AM EST 30 mg Given 2018 7:54 AM EST 200 mg Given 2018 7:51 AM EST 200 mg propofol (DIPRIVAN) infusion CONTINUOUS PRN, Starting on Fri12/28/18 at 0755, Until Fri12/28/18 at 1102, Anesthesia Intra-op, Routine Rate/Dose Change 2018 10:30 AM EST 30 mcg/kg/min 14.6 mL/hr Rate/Dose Change 2018 10:15 AM EST 50 mcg/kg/min 24. 3 mL/hr Rate/Dose Change 2018 9:45 AM EST 50 mcg/kg/min 24.3 mL/hr rocuronium (ZEMURON) multi-dose injection PRN, Starting on Fri12/28/18 at 0855, Until Fri12/28/18 at 1102, Anesthesia Intra-op, Routine Given 2018 8:55 AM EST 50 mg documented in this encounter Care Teams Laboratory Operations Coordinator Relationship Specialty Start Date End Date Megan Hayes APRN PCP - General Family Medicine 12/12/18 06/23/19 documented as of this encounter
--- OUTSIDE RECORDS SUMMARY | 2024-07-01 22:37 | XMS_ITS | Referral Summary ---
Author Organization [facility] Address [address] [place] [address] Care Team Providers Care Children'S Counselor Name Role Phone Susie Khan NP Primary Care Provider [phone] Allergies Active Allergy Reactions Criticality Noted Date [...] 26.84 06/25/2017 1503 EDT Plan of Treatment Not on file Care Teams Children'S Counselor Relationship Specialty Start Date End Date Susie Khan [place] [place] [address] PCP - General 01/16/21
--- OUTSIDE RECORDS SUMMARY | 2024-07-01 22:37 | XMS_ITS | Encounter Summary ---
Author Organization [facility] Address [address] [place] [address] Care Team Providers Care Dice Manager Name Role Phone Freddy Megan ANN Primary Care Provider [phone] Susie Khan NP Primary Care Provider [phone] Encounter Details Date Type Department Care Team (Late st Contact Info) Description 04/26/[address] [facility] Pathology & Laboratory Medicine - [facility] [address], [place] [id number] Outr Resulting Lab, Provider Social History Tobacco Use Types Packs/Day Years Used Date Smoking Tobacco: Never Sex and Gender Information Value Date Recorded Sex Assigned at Not on file Gender Identity Not on file Sexual Orientation Not on file documented as of this encounter Plan of Treatment Not on file documented as of this encounter Procedures Procedure Name Priority Date/Time Associated Diagnosis Comments DO NOT ORDER STANDALONE - BROAD COVID TEST Today 04/26/2020 14:13 EDT COVID-19 TESTING Routine 04/26/2020 14:1 3 EDT documented in this encounter Results * DO NOT ORDER STANDALONE - BROAD COVID TEST (04/26/2020 14:13 EDT) COVID-19 rt-PCR Result NEGATIVE Negative 04/28/2020 10:45 EDT [facility] Comment: 2019-novel Coronavirus (2019-nCoV) not detected by the qRT-PCR assay. Consider testing for other respiratory viruses or re-collecting for 2019-nCoV testing. Note: Optimum timing for peak viral levels during infections caused by 2019-nCoV have not been determined. Collection of multiple specimens from the same patient may be necessary to detect the virus. Limitations Positive results are indicative of active infection with SARS-CoV-2 but do not rule out bacterial infection or co-infection with other viruses. The agent detected may not be the definite cause of disease. In addition, detection of viral RNA may not indicate the presence of infectious virus or that SARS-CoV-2 is the causative agent for clinical symptoms. Negative results do not preclude SARS-CoV-2 infection and should not be used as the sole basis for patient management decisions. Negative results must be combined with clinical observations, patient history, and epidemiological information. False negative results may also occur if amplification inhibitors are present in the specimen or if inadequate numbers of organisms are present in the specimen. Optimum specimen types and timing for peak viral levels during infections caused by SARS-CoV-2 have not been fully determined. Collection of multiple specimens (types and time points) from the same patient may be necessary to detect the virus. The test was validated for use with upper respiratory specimens obtained via nasopharyngeal or oropharyngeal swabs in VTM, UTM, M4, M5, M6, saline, and MTM media. The performance of this test has not been established for other specimens. Specimens collected using other FDA recommended Specimen Collection Materials listed in the FDA COVID-19 [employer] communication (February 17, 2020) are processed with the caveat that they were not all validated for use with this test and the result must be interpreted in this context. Furthermore, a false negative results may occur if a specimen is improperly collected, transported or handled. If the virus mutates in the RT-PCR target region, SARS-CoV-2 may not be detected or may be detected less predictably. Inhibitors or other types of interference may produce a false negative result. An interference study evaluating the effect of common cold medications was not performed. This test is not FDA-cleared but its performance characteristics were established by our CLIA-certified, CAP-accredited, high complexity laboratory in accordance with CLIA regulations, [employer] (CAP) guidelines (Feb 10, 2020), and FDA guidance (Jan 22, 2020). This test is only for use under the Food and Drug Administration's Emergency Use Authorization. Swab ENTIRE NASOPHARYNX / Unknown 04/26/2020 14:13 EDT 04/26/2020 21:03 EDT Provider Outr Resulting Lab MICROBIOLOGY - GENERAL ORDERABLES [facility] [place], [place] * COVID-19 TESTING (04/26/2020 14:13 EDT) COVID-19 rt-PCR Result NEGATIVE Negative 04/28/2020 12:58 EDT [facility] Comment: 2019-novel Coronavirus (2019-nCoV) not detected by the qRT-PCR assay. Consider testing for other respiratory viruses or re-collecting for 2019-nCoV testing. Note: Optimum timing for peak viral levels during infections caused by 2019-nCoV have not been determined. Collection of multiple specimens from the same patient may be necessary to detect the virus. Limitations Positive results are indicative of active infection with SARS-CoV-2 but do not rule out bacterial infection or co-infection with other viruses. The agent detected may not be the definite cause of disease. In addition, detection of viral RNA may not indicate the presence of infectious virus or that SARS-CoV-2 is the causative agent for clinical symptoms. Negative results do not preclude SARS-CoV-2 infection and should not be used as the sole basis for patient management decisions. Negative results must be combined with clinical observations, patient history, and epidemiological information. False negative results may also occur if amplification inhibitors are present in the specimen or if inadequate numbers of organisms are present in the specimen. Optimum specimen types and timing for peak viral levels during infections caused by SARS-CoV-2 have not been fully determined. Collection of multiple specimens (types and time points) from the same patient may be necessary to detect the virus. The test was validated for use with upper respiratory specimens obtained via nasopharyngeal or oropharyngeal swabs in VTM, UTM, M4, M5, M6, saline, and MTM media. The performance of this test has not been established for other specimens. Specimens collected using other FDA recommended Specimen Collection Materials listed in the FDA COVID-19 [employer] communication (February 17, 2020) are processed with the caveat that they were not all validated for use with this test and the result must be interpreted in this context. Furthermore, a false negative results may occur if a specimen is improperly collected, transported or handled. If the virus mutates in the RT-PCR target region, SARS-CoV-2 may not be detected or may be detected less predictably. Inhibitors or other types of interference may produce a false negative result. An interference study evaluating the effect of common cold medications was not performed. This test is not FDA-cleared but its performance characteristics were established by our CLIA-certified, CAP-accredited, high complexity laboratory in accordance with CLIA regulations, [employer]ologists (CAP) guidelines (Feb 10, 2020), and FDA guidance (Jan 22, 2020). This test is only for use under the Food and Drug Administration's Emergency Use Authorization. Performing Lab [facility] 04/28/2020 12:58 EDT [facility] Swab ENTIRE NASOPHARYNX / Unknown 04/26/2020 14:13 EDT 04/26/2020 21:03 EDT Provider Outr Resulting Lab MICROBIOLOGY - GENERAL ORDERABLES Performing Organization Address City/State/[facility] Co de Phone Number [facility] [address] [place] [id number] [place] [address] LABORATORY [place], [place] documented in this encounter Visit Diagnoses Not on filedocumented in this encounter Care Teams Dice Manager Relationship Specialty Start Date End Date Megan Hayes APRN [address] [place] [address] PCP - General 06/25/17 01/15/21 Susie Khan NP [address] [place] [address] PCP - General 01/16/21 documented as of this encounter
--- OUTSIDE RECORDS SUMMARY | 2024-07-01 22:37 | XMS_ITS | Encounter Summary ---
Author Organization [facility] Address [address] [place] [address] Care Team Providers Care Metal Tube Cutter Name Role Phone Megan Hayes APRN Primary Care Provider [phone] Encounter Details Date Type Department Care Team (Late st Contact Info) Description 08/19/2017 Historical Results Only [facility] - Main [place] [address] [place] [id number] Melanie Rdz MD [address] [place] [address]- [address] [place] [id number] Social History Tobacco Use Types Packs/Day Years Used Date Smoking Tobacco: Never Sex and Gender Information Value Date Recorded Sex Assigned at Not on file Gender Identity Not on file Sexual Orientation Not on file documented as of this encounter Plan of Treatment Not on file documented as of this encounter Procedures Procedure Name Priority Date/Time Associated Diagnosis Comments CREATININE, URINE 24HR Routine 08/19/2017 10:00 EDT CORTISOL, FREE, URINE 24HR Routine 08/19/2017 10:00 EDT documented in this encounter Results * (ABNORMAL) CORTISOL, FREE, URINE 24HR (08/19/2017 10:00 EDT) Collection Duration 24 () h 08/22 7:48 EDT [facility] Cortisol,U 47(A) 3.5 - 45 mcg/24 h 08/22/2017 7:48 EDT [facility] UrineVolume 1225 () mL 08/22/2017 7:48 EDT [facility] Comment: ADDITIONAL INFORMATION This test was developed and its performance characteristics determined by [facility] in a manner consistent with CLIA requirements. This test has not been cleared or approved by the U.S. Food and Drug Administration. Test Performed by: [facility] - [facility] [address] [place] [address] 08/19/2017 10:0 0 EDT 08/19/2017 12:50 EDT Melanie Rdz MD URINALYSIS ORDERABLE S [facility] * CREATININE, URINE 24HR (08/19/2017 10:00 EDT) Creatinine, Urine 24 hr 1.52 0.6 - 2.49 g/24hr 08/19/2017 13:58 EDT [facility] URINE COLLECTION TIME - [facility] 24 HOURS 08/19/2017 13:16 EDT [facility] URINE TOTAL VOLUME - [facility] 1,225 mL 08/19/2017 13:16 EDT [facility] 08/19/2017 10:0 0 EDT 08/19/2017 12:50 EDT Melanie Rdz MD URINALYSIS ORDERABLE S [facility] documented in this encounter Visit Diagnoses Not on filedocumented in this encounter Care Teams Metal Tube Cutter Relationship Specialty Start Date End Date Megan Hayes APRN [address] [place] [address] PCP - General 06/25/17 01/15/21 documented as of this encounter
--- OUTSIDE RECORDS SUMMARY | 2024-07-01 22:37 | XMS_ITS | Encounter Summary ---
[place] [address] Care Team Providers Care Helix Coil Winder Name Role Phone Unknown Primary Care Provider Unavailabl e Encounter Details Date Type Department Care Team (Late st Contact Info) Description 10/05/2019 Telephone [place] [phone] Elizabeth Fletcher Social History Tobacco Use Types Packs/Day Years Used Date Smoking Tobacco: Never Smokeless Tobacco: Never Alcohol Use Standard Drinks/Week Comments Yes 7 (1 standard drink = 0.6 oz pur e alcohol) not while Sex and Gender Information Value Date Recorded Sex Assigned at Not on file Gender Identity Not on file Sexual Orientation Not on file documented as of this encounter Miscellaneous Notes * Telephone Encounter - Elizabeth Fletcher - 10/05/2019 10:56 AM EST I have left a message for Spring questioning her apt for tomorrow with Jessika. This apt is a post op follow up to a surgery she did not have. I did ask the patient to call to confirm that the visit is not needed. documented in this encounter Plan of Treatment Not on file documented as of this encounter Visit Diagnoses Not on filedocumented in this encounter Care Teams Helix Coil Winder Relationship Specialty Start Date End Date Unknown None PCP - General 06/24/19 12/08/19 documented as of this encounter
--- OUTSIDE RECORDS SUMMARY | 2024-07-01 22:37 | XMS_ITS | Encounter Summary ---
[place] [address] Care Team Providers Care Accounts Payable Lead Name Role Phone Megan Hayes APRN Primary Care Provider [phone] Reason for Visit * Reason Comments Follow Up Surgery drain removal, s/p t zhanna mcconnell Encounter Details Date Type Department Care Team (Latest Contact Info) Description 01/08/2019 2:00 PM EST Clinical Support [place] [phone] Surgery follow-up Social History Tobacco Use Types [...] this encounter Patient Instructions * Patient Instructions* Kristina Hagen RN - 01/08/2019 2:00 PM EST Patient Instructions Follow up: on 04/06/[address] Quinn or sooner if needed. Activity Restrictions: From the date of your surgery we would request that you don't do any heavy, lifting, pushing, pulling, anything over 5 pounds for 6 to 8 weeks after your surgery, Unless other restrictions were discussed with your surgeon. Drains: We have removed your drain(s) and applied a dressing. You may remove the dressing in 24 hours and shower. After showering, you may cover the drain site(s) with a bandaid. The drain site is typically closed in approximately three days. Spitting sutures: Occasionally an area of redness and tenderness develops where a dissolving stitchbecomes irritated and pushes to the surface. This stitch is clear or white and looks like fish line. If this occurs, it is not an emergency. You may clip the stitch or call the clinic for an appointment with the nurse. Signs of Infection: A temperature over 100.4 F or 38 [...] symptoms please call our nurse's line at [phone] M - F 8 - 5 For after hours, and on weekends; Call [phone] and ask for our plastic surgeon semiconductor assembler SCAR MASSAGE TECHNIQUE: to begin 4-6 weeks following surgery What is a scar? When an injury occurs, the body immediately begins to repair itself & the area becomes swollen & sore. Eventually small collagen fibers form, becoming a solid tissue that results in a scar. This scar will continue to change in appearance for 1-2 years. Ideally, a scar is smooth & flat, blending in with the surrounding skin. However, some scars may become highly visible & unattractive due to factors such as your age, scar location & size, nutrition, genetics, or infection. A hypertrophic scar occurs when there is an excess production of collagen tissue that is elevated but remains within the wound boundaries. The scar is tense, red, & can be associated with itching & tenderness. A hypertrophic scar can be ordinary (usually stabilizes in 3 months & may even get smaller and smoother) or keloid. The keloid scar invades nearby tissue that was not part of the original wound, tends to enlarge even after 6 months & does not get softer. Will scar massage make my scars disappear? Nothing can make scars disappear. However, massaging the scar assists the body in breaking down thescar tissue to give it a flatter, softer, appearance. Massage also mobilizes the scar, preventing it from adhering to underlying tissue, tendons, & nerves. You can make the greatest difference in the appearance of the scar if you massage it in the first 3months. What should I use on my scars? You will hear many recommendations. This clinic finds that it is the massage itself that reduces the scar & not necessarily the choice of ointments or creams. We do discourage the use of Vitamin E oil, however, due to studies that have reported scar inflammation & deterioration. How do I massage my scars? Apply the lotion or cream into the scar 3-4 times a day for 8 weeks on new scars, and 3-4 times perday for 3 to 6 months on existing scars. Using your finger, apply pressure to the scar in a crosswise & circular direction, bearing down as hard as tolerated. Remember to protect your scar from the sun, especially in the first 6-12 months, by using a moisturizer with sunblock and wearing a physical barrier (ie: a hat) when possible documented in this encounter Progress Notes * Kristina Hagen RN - 01/08/2019 2:00 PM EST Plastic Surgery [facility]anni Drain Removal Note Date of surgery: 12/28/18 Procedure(s): Farrukh with Dr. Quinn Subjective : Spring reports mild discomfort using tylenol with good effect. She is happy with her results. Objective :Right drain is about 20 mL per day and does meet criteria for removal today. Drain site cleansed with a wound cleanser and dry dressings re applied with instructions to leave this dressingin place for 24 hours. Abdomen is soft. Swelling: mild bilaterally abdomen. Bruising: no bilaterally abdomen. The incision lines are well approximated with absorable sutures intact with skin glue. Surgical binder fitted and in use. Patient denies nausea or vomiting. Assessment : There no signs of delayed healing, erythema, or fluid collection. Incisions CDI Plan : We reviewed instructions on drain site and incisional care, showering, pain control, and activity restrictions as outlined in our post op brochure. We reviewed parameters for normal post operative swelling and bruising as stated in our post op brochures.Spring agrees with plan of care,and was instructed to call with any concerns. . documented in this encounter Plan of Treatment Not on file documented as of this encounter Visit Diagnoses Diagnosis Surgery follow-up Follow-up examination, following unspecified surgery documented in this encounter Care Teams Accounts Payable Lead Relationship Specialty Start Date End Date Megan Hayes APRN PCP - General Family Medicine 12/12/18 06/23/19 documented as of this encounter
--- OUTSIDE RECORDS SUMMARY | 2024-07-01 22:37 | XMS_ITS | Encounter Summary ---
Author Organization [facility] Address [address] [place] [address] Care Team Providers Care Tester Operator Name Role Phone Unavailable Primary Care Provider Unavailabl e Encounter Details Date Type Department Care Team (Late st Contact Info) Description 02/03/2004 Results Only [facility] - [place] [address] [place] [address] Erasto Maldonado, DO [address] [address] [place] [address] Social History Tobacco Use Types Packs/Day Years Used Date Smoking Tobacco: Never Assessed Sex and Gender Information Value Date Recorded Sex Assigned at Not on file Gender Identity Not on file Sexual Orientation Not on file documented as of this encounter Plan of Treatment Not on file documented as of this encounter Procedures Procedure Name Priority Date/Time Associated Diagnosis Comments SURGICAL PATHOLOGY Routine 02/03/2004 0:00 EST documented in this encounter Results * SURGICAL PATHOLOGY (02/03/2004 0:00 EST) Pathology Report: SURGICAL PATHOLOGY REPORT Reports generated via electronic interface contain original data; however they are lacking the format of the original report. Caution should be taken when reading/interpreting unformatted reports. Name: ? MARTINEZ CAMACHO ? Accession #: ? [id number] ? : ? 1985 (Age: 18) ??F ? Collect Date: ? 02/03/2004 ? Location: ? [facility] ? Receive Date: ? 02/03/2004 ? Provider: ERASTO MALDONADO DO Copy to: RADHA AWAD MD ? Final Pathologic Diagnosis: A. ?Colon, terminal ileum, biopsy: 1. ?Ileal mucosa with no specific pathologic changes. B. ?Colon, transverse, biopsy: 1. ?Colonic mucosa with preserved architecture and no specific pathologic changes. ?? C. ?Colon, ascending, biopsy: 1. ?Colonic mucosa with preserved architecture and no specific pathologic changes. ?? D. ?Colon, 25 cm, biopsy: 1. ?Acute colitis. E. ?Rectum, biopsy: 1. ?Rectal mucosa with no specific pathologic changes. ?? Comment: ? Specimen (D) reveals acute cryptitis without crypt architectural distortion. This finding could be caused by a variety of factors such as enema preparation, acute self limited colitis, drug induced such as NSAIDS. Clinical correlation suggested. Case reviewed at intradepartmental consultation conference. (Dr King). ?? Document reviewed and electronically signed by: ERYN KING MD Report ??Date: 02/06/2004 18:31 By the signature above, the attending physician certifies that he/she has personally conducted a gross and/or microscopic examination of the described specimens and rendered or confirmed the above diagnosis. Specimen(s) Received: A. ?Terminal ileum B. ?Transverse colon C. ?Ascending colon D. ?25 cm E. ?Rectum Clinical History: ? Colonoscopy, hematochezia, colon looks normal on endoscopy except at 25 cm where there is inflammation Gross Description: ? Received in Hollande's fixative labelled Fran and bx terminal ileum are two braun-pink irregular soft tissue fragments averaging 0.2 x 0.2 x 0.2 cm. The specimen is entirely submitted as (A). Received in Hollande's fixative labelled Fran and bx transverse colon is a braun-pink 0.3 x 0.2 x 0.2 cm soft tissue fragment. ??The specimen is entirely submitted as (B). Received in Hollande's fixative labelled Fran and bx ascending colon are three braun-pink irregular soft tissue fragments ranging from 0.2 x 0.2 x 0.2 cm to 0.6 x 0.2 x 0.2 cm. ??The specimen is entirely submitted as (C). Received in Hollande's fixative labelled Fran and bx sigmoid colon are three braun-pink irregular soft tissue fragments ranging from 0.2 x 0.2 x 0.2 cm to 0.3 x 0.2 x 0.2 cm. ??The specimen is entirely submitted as (D). ?? Received in Hollande's fixative labelled Fran and bx rectum is a braun-pink 0.2 x 0.2 x 0.2 cm soft tissue fragment. ??The specimen is entirely submitted as (E). ??(Bridget Callaway)/[facility] End of Report LUCINDA YOUNG 02/03/2004 02/03/2004 15: 05 EST Erasto Maldonado DO PATHOLOGY ORDER CEDRICK LUCINDA YOUNG [address] [place] [address] documented in this encounter Visit Diagnoses Not on filedocumented in this encounter
--- OUTSIDE RECORDS SUMMARY | 2024-07-01 22:37 | XMS_ITS | Encounter Summary ---
Author Organization [facility] Address [address] [place] [address] Care Team Providers Care Household Appliance Installer Name Role Phone Megan Hayes APRN Primary Care Provider [phone] Susie Khan NP Primary Care Provider [phone] Encounter Details Date Type Department Care Team (Late st Contact Info) Description 11/10/2020 Lab Requisition [facility] Pathology & Laboratory Medicine - [address] [address] Outr Resulting Lab, Provider Social History Tobacco [...] Comments CHLAMYDIA/N. GONORRHOEAE AMPLIFIED NUCLEIC ACID Routine 11/10/2020 11:30 EST documented in this encounter Results * CHLAMYDIA/N. GONORRHOEAE AMPLIFIED RNA (11/10/2020 11:30 EST) Neisseria gonorrhoeae Result Negative Negative 11/13/2020 14:54 EST [facility] Chlamydia trachomatis Result Negative Negative 11/13/2020 14:54 EST [facility] Swab ENTIRE ENDOCERVIX / Unknown 11/10/2020 11:30 EST 11/10/2020 16:59 EST Provider Outr Resulting Lab MICROBIOLOGY - GENERAL ORDERABLES [facility] [address] [place] [address] documented in this encounter Visit Diagnoses Not on filedocumented in this encounter Care Teams Household Appliance Installer Relationship Specialty Start Date End Date Megan Hayes APRN [address] [place] [address] PCP - General 06/25/17 01/15/21 Susie Khan NP [address] [place] [address] PCP - General 01/16/21 documented as of this encounter
--- OUTSIDE RECORDS SUMMARY | 2024-07-01 22:37 | XMS_ITS | Encounter Summary ---
[place] [address] Care Team Providers Care Nuclear Licensing Engineer Name Role Phone Megan Hayes APRN Primary Care Provider [phone] Reason for Visit * Reason Onset Date Comments Medical Care Coordination 01/13/2019 Encounter Details Date Type Department Care Team (Late st Contact Info) Description 01/13/2019 Telephone [place] [id number] Sumaya Fatima, RN Medical Care Coordination Social History Tobacco Use Types Packs/Day Years [...] encounter Miscellaneous Notes * Telephone Encounter - Sumaya Fatima RN - 01/13/2019 3:32 PM EST Received call from Freddy Daniels. Patient seen today in office for c/o acute onset of pain along left side of abd incision. On exam patient, afebrile, area slightly reddened and tender to touch Temp 99.6 No drainage, incision well approximated. Patient to be started on Keflex 500 mg QID x 10 days FLASK PUSHER requesting follow up with Plastic Department Patient scheduled with NSO 01/14 @ 10 am for incision check documented in this encounter Plan of Treatment Not on file documented as of this encounter Visit Diagnoses Not on filedocumented in this encounter Care Teams Nuclear Licensing Engineer Relationship Specialty Start Date End Date Megan Hayes APRN PCP - General Family Medicine 12/12/18 06/23/19 documented as of this encounter
--- OUTSIDE RECORDS SUMMARY | 2024-07-01 22:37 | XMS_ITS | Encounter Summary ---
Author Organization [facility] Address [address] [place] [address] Care Team Providers Care Proof Passer Name Role Phone Freddy Megan ANN Primary Care Provider [phone] Susie Khan NP Primary Care Provider [phone] Encounter Details Date Type Department Care Team (Late st Contact Info) Description 11/14/2020 Lab Requisition [facility] - [address] [address] Gabriela Mock, [facility] [address] [place] [phone] Encounter for other general examination Social History [...] Name Priority Date/Time Associated Diagnosis Comments PAP TEST Today 11/10/2020 11:30 EST Encounter for other general examination HPV DNA DETECTION WITH GENOTYPING, PCR Today 11/10/2020 11:30 EST Encounter for other general examination documented in this encounter Results * (ABNORMAL) HUMAN PAPILLOMAVIRUS (HPV) DETECTION-HIGH RISK TYPES (11/10/2020 11:30 EST) HPV other High Risk types, PCR Positive( A) Negative 11/29/2020 15:45 [facility] Comment:E6 OR E7 mRNA from o ne or more types of HPV types 16,18,31,33,35,39,45,51,52,56,58,59,66, and 68 is detected by automotive general sales manager mediated amplification. High and intermediate risk HPV types are associated with most squamous intraepithelial lesions and cervical cancers. Papanicolaou smear specimen (specimen) CERVIX UTERI STRUCTURE / Unknown 11/10/2020 11:30 EST 11/23/2020 15:46 EST Gabriela Mock CORE MANAGER MICROBIOLOGY - GENER AL ORDERABLES [facility] [address] [place] [address] * PAP TEST (11/10/2020 11:30 EST) Specimens A. Cervix and/or Endocervix , ThinPrep Imaging System with Manual Evaluation 11/29/2020 15:45 [facility] Specimen Adequacy Satisfactory for Evaluation - transformation zone component present 11/29/2020 15:45 [facility] General Categorization Negative for intraepithelial lesion or malignancy 11/29/2020 15:45 [facility] Attestation . 11/29/2020 15:45 [facility] at 1545 Clinical History See below 11/29/19 21 15:45 [facility] HPV The result for the Human Papillomavirus (HPV) Detection-High Risk Types is Positive . E6 OR E7 mRNA from one or more types of HPV types 16,18,31,33,35,39 ,45,51,52,56,58,5 9,66, and 68 is detected by automotive general sales manager mediated amplification. High and intermediate risk HPV types are associated with most squamous intraepithelial lesions and cervical cancers. Testing was performed on specimen [id number] and was resulted on 11/29/2020 1514 EST by MAYUR, LAB INSTRUMENT RESULTS IN 11/29/2020 15:45 EST [facility] Performing Lab [facility] 11/29/2020 15:45 EST [facility] Scanned Images 11/29/2020 15:45 EST [facility] Papanicolaou smear specimen (specimen) CERVIX UTERI STRUCTURE / Unknown 11/10/2020 11:30 EST 11/14/2020 9:00 EST Gabriela Mock CORE MANAGER PATHOLOGY ORDERABLES [facility] [address] [place] [address] documented in this encounter Visit Diagnoses Diagnosis Encounter for other general examination documented in this encounter Care Teams Proof Passer Relationship Specialty Start Date End Date Megan Hayes APRN [address] [place] [address] PCP - General 06/25/17 01/15/21 Susie Khan NP [address] [place] [address] PCP - General 01/16/21 documented as of this encounter
--- OUTSIDE RECORDS SUMMARY | 2024-07-01 22:37 | XMS_ITS | Encounter Summary ---
Author Organization [facility] Address [address] [place] [address] Care Team Providers Care Rehab Department Manager Name Role Phone Keyona Guevara MD Primary Care Provider [phone] Encounter Details Date Type Department Care Team (Late st Contact Info) Description 07/30/2012 Results Only [facility] ([facility]) [address], [place] [address] Estuardo Fritz MD [address] [facility] [place] [address] Social History Tobacco Use Types Packs/Day Years [...] Diagnosis Comments PAP TEST- RESULT ONLY Routine 07/30/2012 0:00 EDT documented in this encounter Results * PAP TEST- RESULT ONLY (07/30/2012 0:00 EDT) Pathology Report: CYTOPATHOLOGY REPORT Reports generated via electronic interface contain original data; however they are lacking the format of the original report. Caution should be taken when reading/interpreti ng unformatted reports. Name: ? MARTINEZ CAMACHO ? Accession #: ? [id number] : ? 1985 (Age: 26) ??F ?Collect Date: ? 07/30/2012 Location: ? [facility] ? Receive Date: ? 08/03/2012 Provider: ?ESTUARDO FRITZ MD Copy to: ? Specimen/Source: ?Pap Test, Cervix/Endocervix, ThinPrep Imaging System with manual evaluation Last Menstrual Period: ? 07/09/12 ? SPECIMEN ADEQUACY ? Satisfactory for Evaluation - transformation zone component present GENERAL CATEGORIZATION ? Negative for Intraepithelial Lesion or Malignancy ? Document reviewed and electronically signed by: ? MARIA DEL CARMEN Handley(ASCP) ? Report Date: ??08/10/2012 09:49 End of Report [facility] YOUNG 07/30/2012 08/03/2012 Estuardo Fritz MD PATHOLOGY ORDERABLES Performing Organization Address City/State/[facility] Co de Phone Number [facility] [address] [place] [address] documented in this encounter Visit Diagnoses Not on filedocumented in this encounter Care Teams Rehab Department Manager Relationship Specialty Start Date End Date Keyona Guevara MD [address] [place] [phone] PCP - General 04/14/12 06/24/17 documented as of this encounter
--- OUTSIDE RECORDS SUMMARY | 2024-07-01 22:37 | XMS_ITS | Encounter Summary ---
Author Organization [facility] Address [address] [place] [address] Care Team Providers Care Sludge Control Attendant Name Role Phone Unavailable Primary Care Provider Unavailabl e Encounter Details Date Type Department Care Team (Late st Contact Info) Description 06/27/2006 Results Only [facility] [address] [place] [address] Pippa Unger MD [address] [place] [address] [place] [address] Social History Tobacco Use Types Packs/Day Years Used Date Smoking Tobacco: Never Assessed Sex and Gender Information Value Date Recorded Sex Assigned at Not on file Gender Identity Not on file Sexual Orientation Not on file documented as of this encounter Plan of Treatment Not on file documented as of this encounter Procedures Procedure Name Priority Date/Time Associated Diagnosis Comments CYTOPATHOLOGY Routine 06/27/2006 0:00 EDT documented in this encounter Results * CYTOPATHOLOGY (06/27/2006 0:00 EDT) Pathology Report: CYTOPATHOLOGY REPORT Reports generated via electronic interface contain original data; however they are lacking the format of the original report. Caution should be taken when reading/interpreti ng unformatted reports. Name: ? MARTINEZ RICHARDSON ? Accession #: ? [id number] : ? 1985 (Age: 20) ??F ?Collect Date: ? 06/27/2006 Location: ? [facility] ? Receive Date: ? 06/30/2006 Provider: ?PIPPA UNGER MD Copy to: ? Specimen/Source: ?ThinPrep Pap Test, Cervix/Endocervix, processed on [email or web address] ThinPrep Imaging System, with manual evaluation Last Menstrual Period: ? 06/10/06 Other: ? HPVA - HPV testing requested if ASC-US on the current ThinPrep Pap test. ? SPECIMEN ADEQUACY ? Satisfactory for Evaluation - transformation zone component present GENERAL CATEGORIZATION ? Negative for Intraepithelial Lesion or Malignancy ? Document reviewed and electronically signed by: ? MARIA DEL CARMEN Byrnes(ASCP) ? Report Date: ??07/02/2006 11:23 End of Report LUCINDA YOUNG 06/27/2006 06/30/2006 Pippa Unger MD PATHOLOGY ORDERABLES [facility] [address] [place] [address] documented in this encounter Visit Diagnoses Not on filedocumented in this encounter
--- OUTSIDE RECORDS SUMMARY | 2024-07-01 22:38 | XMS_ITS | Encounter Summary ---
[facility] Organization [facility] [place] [address] Care Team Providers Care Marketing And Public Relations Manager Name Role Phone Chantel Guevara MD Primary Care Provider [phone] Encounter Details Date Type Department Care Team (Latest Contact Info) Description 01/20/2015 4:44 PM EST - 03/04/2015 11:20 AM EDT Hospital [place] [address] Sanju Marcos MD [facility] [place] [address] Gestational diabetes mellitus in , insulin controlled; Supervision of high risk in second trimester; with third trimester bleeding, antepartum; Previous delivery affecting Discharge Disposition: Home Social History Tobacco Use [...] Sign Reading Time Taken Comments Blood Pressure 111/71 03/04/2015 9:33 AM EDT Pulse 80 03/04/2015 9:33 AM EDT Temperature 36.9 ??C (98.4 ??F) 03/04/2015 9:33 AM ED T Respiratory Rate 18 03/04/2015 9:31 AM EDT Oxygen Saturation 99% 03/03/2015 8:38 PM EDT Inhaled Oxygen Concentration - - Weight 100.6 kg (221 lb 12.5 oz) 02/27/2015 6:16 AM EDT Height 170.2 cm (5' 7) 01/20/2015 3:19 PM EST Body Mass Index 34.74 01/20/2015 3:19 PM EST documented in this encounter Discharge Instructions * Discharge Instructions* Mayte Ayala RN - 03/04/2015 9:56 AM EDT Nursing Inpatient Progress C - Section Follow-up Follow-ups: Your follow upo appts will be mailed to you. Maternal Discharge Instructions Rest: Although it may seem impossible to get enough rest, simple planning will help. Try to get at least one four hour block of uninterrupted sleep in 24 hours; then plan to rest, and/or sleep when your baby does. Limiting visitors also helps. Fathers and other family members can help by doing housework, caring for other children and/or helping limit visitors. Activity: After delivery, it is safe to climb stairs at home. Do not lift anything heavierthan your baby for two weeks. Do not drive for two weeks or while taking pain medicine that contains a narcotic as your reaction time may be decreased. Nutrition: Your diet following the of your baby is as important as it was before the baby wasborn. Drink a minimum of 6-8 glasses a day. Do not attempt to lose weight during the first six weeks. Continue taking your vitamins until they are gone. Lochia: (Flow) Your flow should be no heavier than a normal period. It will be bright red for 2-3 days and then pinkish and finally colorless. If your flow becomes bright red again, decrease your activity. Do not use tampons until your care provider advises you it is OK. Incision: Wash the incision with soap and water and pat dry. It is normal to have clear or pinkish fluid seep from the incision. Gauze pads or sanitary napkins may help to keep the incision dry if itis located in a fold under your tummy. If the incision has more redness, yellow drainage, or becomes more painful, contact the obstetrics clinic. Breast feeding mothers: Practice careful positioning and frequent feeding as demonstrated in the hospital. The printed information in your packet covers this in detail. Call your doctor or furniture installer for: ??? Fever more than 100.5 ??? Heavy bleeding that saturates a pad an hour ??? Clots larger than a plum ??? Increased abdominal pain, nausea, shaking chills ??? Increased redness or soreness over your incision Breast with hot, hard, tender areas on the breast plus flu-like symptom ??? depression occurs in a large percentage of women. We encourage you to contact your provider or a member of the nursing staff if you are feeling so overwhelmed that you are unable to care for yourself or your baby. Keep your follow up appointment. You may call the [facility] at any time for guidance or for answers to questions that come up prior to you follow up appointment. Your [facility] Provider can be reached during office hours at ??? Midwives ??? Obstetricians ??? [facility] Follow-up Clinic AFTER OFFICE HOURS for the assembler crimper or furniture installer hand brim ironer Provider electronic signature confirms that discharge instructions were reviewed with the patient. A copy was printed and given to the patient. documented in this encounter Medications at Time of Discharge Medication Sig Dispensed Refills Start Date End Date ibuprofen (ADVIL;MOTRIN) 600 mg Tablet Take 1 tablet by mouth every 6 hours as needed for Pain. 60 tablet 3 03/04/2015 docusate sodium (COLACE) 100 mg Capsule Take 1 capsule by mouth 2 times daily for 10 days. 60 capsule 3 03/04/2015 03/14/2015 oxyCODONE (ROXICODONE) 5 mg Tablet Take 1 tablet by mouth every 3 hours as needed for Pain. 30 tablet 0 03/04/2015 12/11/2017 Alcohol Swabs Pads, MedicatedIndications:Ab normal glucose complicating Apply 200 each topically 3 times daily. 200 each PRN 10/17/2014 12/11/2017 VITS W-CA,FE,FA,<1MG, ( VITAMIN ORAL) 10/11/201011/24 documented as of this encounter Progress Notes * Mayte Ayala RN - 03/04/2015 11:19 AM EDT Pt verbalized full understanding of discharge instructions, wound care, post care, and follow up appts. Pt with no further questions at this time. DC to home with baby and . * Blanquita Ca MD - 03/04/2015 5:45 AM EDT Delivery Note Information for the patient's : Doug Baby Girl [[id number]] Delivery Date and Time:03/01/2015 3:11 PM Delivery Type: Lower Segment Transverse ID: Martinez Richardson is a 29 y.o. who is now post-operative day #3 from repeat low transverse delivery and bilateral tubal ligation. Antepartum course complicated by chronic abruptionand bleeding as well as GDMA2. She is recovering well post-operatively. Subjective: Pain is controlled with PO pain medications. She is tolerating a regular diet. Voiding and ambulating without issues. She is pumping for her infant. She is s/p bilateral tubal ligation for contraception. Review of Systems Denies fevers/chills, headache, changes in vision, light-headedness, chest pain, SOB, N/V, leg swelling, tenderness Lochia: scant Last Set of Vitals: Last value Range last 24 hrs Temperature Temp: 36.8 ??C (98.2 ??F) Temp: [36.6 ??C (97.9 ??F)-37 ??C (98.6 ??F)] Heart Rate Heart Rate: 84 Heart Rate: [77-84] Blood Pressure BP: 118/66 mmHg BP: (105-118)/(66-75) Respiratory Rate Resp: 18 Resp: [18] SpO2 SpO2: 99 % SpO2: [98 %-100 %] Art BP BP (Arterial Line): -- Weight - Scale: 100.6 kg (221 lb 12.5 oz) Physical Exam Gen: NAD, sitting up in bed eating breakfast CV: RRR no M/R/G Pulm: CTAB no wheezing no crackles Abd: soft, non-tender, uterine fundus firm, non-tender and below the umbilicus Incision: c/d/i no surrounding erythema/induration, steri-strips in place Lochia: appropriate Significant Labs: Lab Results Component Value Date ABORH A Pos 02/28/2015 WBC 12.2* 03/02/2015 HCT 34.7 03/02/2015 HGB 11.7 03/02/2015 RUBLIGG Positive 10/31/2014 Recent Labs 03/02/15 0615 03/01/15 1340 WBC 12.2* 9.5 HGB 11.7 15.7 HCT 34.7 45.3* PLATELET 153 175 Assessment & Plan Martinez Richardson is a 29 y.o. who is now post-operative day #3 from repeat low transverse delivery and bilateral tubal ligation. Antepartum course complicated by chronic abruption andbleeding as well as GDMA2. She is recovering well post-operatively. Hemoglobin drop appropriate to 11.7. ?? Patient is doing well without problems. ?? nutrition: pumping for infant ?? Contraception: bilateral tubal ligation ?? care: Routine 6 week clinic visit Assessment Management of Additional Medical Issues ?? GDMA2: requires 6 week glucola challenge This patient was seen and discussed on rounds. Blanquita Ca MD PGY1 03/04/2015 * Zia Gan MD - 03/03/2015 6:40 AM EDT Delivery Note Information for the patient's : Doug Baby Girl [[id number]] Delivery Date and Time:03/01/2015 3:11 PM Delivery Type: Lower Segment Transverse ID: Martinez Richardson is a 29 y.o. who is now post-operative day #2 from repeat low transverse delivery and bilateral tubal ligation. Antepartum course complicated by chronic abruptionand bleeding as well as GDMA2. She is recovering well post-operatively. Subjective: Pain is controlled with PO pain medications. She is tolerating a regular diet. Voiding and ambulating without issues. She is pumping for her but is not getting much. She is s/p bilateral tubal ligation for contraception. Review of Systems Denies fevers/chills, headache, changes in vision, light-headedness, chest pain, SOB, N/V, leg swelling, tenderness Lochia: scant Last Set of Vitals: Last value Range last 24 hrs Temperature Temp: 37 ??C (98.6 ??F) Temp: [36.7 ??C (98.1 ??F)-37 ??C (98.6 ??F)] Heart Rate Heart Rate: 81 Heart Rate: [81-169] Blood Pressure BP: 105/65 mmHg BP: (102-107)/(61-77) Respiratory Rate Resp: 18 Resp: [18] SpO2 SpO2: 97 % SpO2: [97 %-98 %] Art BP BP (Arterial Line): -- Weight - Scale: 100.6 kg (221 lb 12.5 oz) Physical Exam Gen: NAD, resting CV: RRR no M/R/G Pulm: CTAB no wheezing no crackles Abd: soft, non-tender, uterine fundus firm, non-tender and below the umbilicus Incision: dressing removed, c/d/i no surrounding erythema/induration. Lochia: appropriate Significant Labs: Lab Results Component Value Date ABORH A Pos 02/28/2015 WBC 12.2* 03/02/2015 HCT 34.7 03/02/2015 HGB 11.7 03/02/2015 RUBLIGG Positive 10/31/2014 Recent Labs 03/02/15 0615 03/01/15 1340 WBC 12.2* 9.5 HGB 11.7 15.7 HCT 34.7 45.3* PLATELET 153 175 Assessment & Plan Martinez Richardson is a 29 y.o. who is now post-operative day #2 from repeat low transverse delivery and bilateral tubal ligation. Antepartum course complicated by chronic abruption andbleeding as well as GDMA2. She is recovering well post-operatively. Hemoglobin drop appropriate to 11.7. ?? Patient is doing well without problems. ?? nutrition: pumping for infant in ICN ?? Contraception: bilateral tubal ligation ?? care: Routine 6 week clinic visit Assessment Management of Additional Medical Issues ?? GDMA2: requires 6 week glucola challenge This patient was seen and discussed on rounds. Sanju Chen MD PGY1 03/03/2015 Attending vaginal delivery note Zia Gan MD I reviewed the above note and discussed the patient at rounds with the team. I agree with the documented findings and plan of care, except as noted below. My evaluation: No complaints Temp: [36.7 ??C (98.1 ??F)-37 ??C (98.6 ??F)] Heart Rate: [79-93] Resp: -- BP: (105-107)/(61-69) SpO2: [97 %-98 %] Uterus firm non-tender Impression & Plan: stable PPD 2 from repeat c/s in the setting of chronic abruption. She is doing very well, ambulating and recovering. She will most likely be ready for discharge tomorrow.. Remainder of plan as above. Zia Gan MD 03/03/2015 * Adina Calle RN - 03/02/2015 3:05 PM EDT Care Management Assessment (Clinical Firer Kiln) Patient Information has been reviewed in multi-disciplinary rounds with OB and pediatric providers,in medical record, and through patient interview. Introduced self and CRC role to patient and services accepted. Obstetrical presentation/delivery: Martinez is a 29 y.o delivered by Repeat C/Section with BTL at 36 3/7 weeks gestation on 03/01/15. (Age, Grav/Para, gestation, type/date of delivery) Significant medical hx and obstetric complications: PCOS, GDM A2, septate uterus, obesity, anxiety and depression, Prior C/S x 2. Living With Whom: Víctor Richardson and their two older children ages 6 and 4 Where: [place], [place] Approx time in community: Year(s) Social Resources: Pleasant intact couple with third child. 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 They have [place] [employer] insurance. 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 Supportive family/friend network. Extended family in area for support: Yes Cognitive Resources: Intact Childbirth Education: Yes/No Educational Level: College, [employer] Functional Status: Ambulatory, Independent, Without limitations. C/S recovery with limitations on lifting/driving x 2 weeks. Complications requiring follow-up: Financial Resources: Adequate Health Insurance Coverage: [facility] Partner Show Host Or Hostess Chosen: Chaitanya Puente MD Baby's Name: Ingrid Richardson Anticipated Continuing Care Needs: Physical: Recovery from . Initiation of . Emotional: Adjustment to period Psychological: Known hx of anxiety/depression. At risk for PPD. Referred to social service liaison for assessment and support while inpatient. Educational: Parenting Continuing Care Plan Development: At home resources/Discharge supports suggested. Printed materials and suggested community resourcesprovided to patient: Visiting Nurse visits: Offered services of [facility] post discharge. Patient accepted if indicated for weekend visit. Anticipate dc home on Friday. [facility] (not available) 4th Trimester New mom support/[facility] [address] resource sheet provided. [place] [facility]: ([place] [employer] [place] Yes [place] [facility]): [place] [facility]: [facility] DME ordered : None Breast Pump: Has obtained through insurance. Other: Have infant car seat, own transportation, and adequate family support. Will revisit prior to discharge regarding home care over weekend. CRC: Martha ESTEVEZ/ Arash Ricketts. Beeper [id number] * Zia Gan MD - 03/02/2015 6:11 AM EDT Delivery Note Information for the patient's : Doug, Baby Girl [[id number]] Delivery Date and Time:03/01/2015 3:11 PM Delivery Type: Lower Segment Transverse ID: Martinez Richardson is a 29 y.o. who is now post-operative day #1 from repeat low transverse delivery and bilateral tubal ligation. Antepartum course complicated by chronic abruptionand bleeding as well as GDMA2. She is recovering well post-operatively. Subjective: Complains of incision pain as well as cramping abdominal pain. It is well controlled with PO pain medications. She is tolerating diet well and ambulating well. She is pumping for her infant but is not getting much. She has a tubal ligation for contraception. She has a boston in place draining clear urine. Review of Systems Denies fevers/chills, headache, changes in vision, light-headedness, chest pain, SOB, N/V, leg swelling, tenderness Lochia: small Last Set of Vitals: Filed Vitals: 03/02/15 0617 BP: 93/55 Pulse: 81 Temp: 36.5 ??C (97.7 ??F) Resp: Weight - Scale: 100.6 kg (221 lb 12.5 oz) Physical Exam Gen: NAD, sleeping CV: RRR no M/R/G Pulm: CTAB no wheezing no crackles Abd: soft, non-tender, uterine fundus firm, non-tender and at umbilicus Dressing: clean, dry and intact Incision: not inspected, will remove on POD#2 Lochia: appropriate Significant Labs: Lab Results Component Value Date ABORH A Pos 02/28/2015 WBC 12.2* 03/02/2015 HCT 34.7 03/02/2015 HGB 11.7 03/02/2015 RUBLIGG Positive 10/31/2014 Immunization status: Up to date Assessment & Plan Martinez Richardson is a 29 y.o. who is now post-operative day #1 from repeat low transverse delivery and bilateral tubal ligation. Antepartum course complicated by chronic abruption andbleeding as well as GDMA2. She is recovering well post-operatively. Hemoglobin drop appropriate to 11.7. ?? Patient is doing well without problems. ??? nutrition: pumping for in ICN ??? Contraception: bilateral tubal ligation ??? care: Routine 6 week clinic visit ??? Assessment Management of Additional Medical Issues ?? GDMA2: requires 6 week glucola challenge This patient was seen and discussed on rounds. Blanquita Ca MD 03/02/2015 Patient care reviewed along with A&P which I agree with Patinet not available to be seen this am because she has been in the NICU. * Camila Gomez RN - 03/01/2015 7:36 PM EDT 1920: pt vomited about 800mL. MD Jessica west, CATALINA zofran ordered and admin per JAN. * Griselda Hampton MD - 03/01/2015 1:49 PM EDT Nonstress Test, Fetus A NST Start Time: 1029 (03/01/151346) HR (beats/min): 150 (03/01/15 1347) Variability: moderate (amplitude range 6 to 25 bpm) (03/01/151346) Accelerations: present (03/01/151346) Decelerations: none (03/01/151346) Contraction Frequency (min): rare (03/01/151346) Nonstress Test Interpretation: Reactive, >32 weeks: two 15 bpm accelerations lasting 15 seconds (03/01/151346) Overall Impression: Reassuring for gestational age (03/01/15 134) Comments: (02/25/151348) Macario Musa MD PGY3 03/01/2015 I personally reviewed the FHR Tracing and agree with the Resident???s interpretation. Griselda Hampton MD * Griselda Hampton MD - 03/01/2015 1:37 PM EDT OB Event Note Martinez Richardson is a 29 y.o. at 36w3d with a PSH of 2 prior c/s who is HD#41 admitted with a chronic abruption. She has an anterior placenta with concern for placenta accreta. She has had intermittent bleeding of BRB throughout her admission. Yesterday, she had an episode of BRB measuring ~1x3. Today, she has had 3 episodes of BRB, which have been increasing in size. monitoring hasbeen reassuring with no ctx noted on tocometry. However, due to increased frequency of bleeding, the decision has been made to proceed with a repeat section. Discussed this plan with the patient, and she is ok with proceeding with repeat section today. Vinicius Mack MD PGY4 03/01/2015 I agree with plan for delivery as she has continued to have bleeding. Griselda Hampton MD * Genesis Dkues - 03/01/2015 1:22 PM EDT Nutrition Services - Follow-up Note Martinez Richardson : 1985 AGE: 29 y.o. Patient Active Problem List Diagnosis Date Noted ??? Hospital-GDMA2 on insulin ??? Hospital-Previous delivery affecting 01/30/2015 ??? Hospital- with third trimester bleeding, antepartum 01/30/2015 ??? Supervision of high risk in second trimester 09/29/2014 ??? Gestational diabetes 09/29/2014 Reason for Nutrition Intervention: Follow-up Diet Order: Gestational CHO Counting Appetite: good Food allergies: NKFA Chewing/Swallowing difficulty: none Height: 170.2 cm Weight: 100.6 kg Body mass index is 34.73 kg/(m^2). Vitamins/Minerals: Vitamin, Tums noted Assessment: Patient continues to eat well and order from room service. Denies need to change snacksat this time. Did mention that sometimes her snacks don't get delivered. This has been an issue on BP in the past, informed the diet global chief creative officer that it continues to be a problem. Nutrition Plan: Continue current diet. Continue snacks. Encourage good po intake. Monitor weight. Support and encouragement provided. Nutrition services to follow weekly thru hospital course unless consulted in the interim. AGUILA Hirsch * Mayte Ayala RN - 03/01/2015 11:11 AM EDT 03/01/15 1107 Uterine Activity Assessment Method palpation;TOCO (external tocotransducer) Contraction Frequency (min) occ Contraction Duration (sec) 60 Contraction Intensity mild by palpation Uterine Resting Tone soft by palpation Assessment Movement active Mode continuous external HR (beats/min) 155 Variability moderate (amplitude range 6 to 25 bpm) Accelerations present Decelerations none Pt off EFM per Dr Musa. team aware of new bleeding. Will continue to monitor closely. Call light within reach. * Camila Kraft RN - 03/01/2015 7:03 AM EDT This RN performed rounding at this time, assessed blood glucose and administered NPH. Patient stating that she had bleeding between 330 and 0645. She states she got up at 330 and had no bleeding and when she got up to bathroom at 0645 she had small amount of bright red bleeding on underwear and on toilet tissue. * Zia Gan MD - 03/01/2015 6:39 AM EDT Obstetrical Antepartum Progress Note ID: Martinez Richardson is a 29 y.o. at 36w3d, now HD#41, BFD #0 admitted for presumed chronic placental abruption with an anterior placenta. complicated by GDMA2 on insulin, obesity, h/o CS x2, and h/o SAB and D&C x2. Betamethasone and magnesium complete. 24 Hour Events - quarter-sized amount of vaginal bleeding this morning Subjective: Martinez reports an episode of painless vaginal bleeding this morning with additional bleeding with wiping. She is ambulating without difficulty. Denies LOF, cramping/contractions. Good FM.Denies sob, cp, n/v, leg pain. Eating, sleeping, voiding, and moving her bowels w/o difficulty. Review of Systems: 6 point review of systems reviewed as above, otherwise negative Objective: Last value Range last 24 hrs Temperature Temp: 36.5 ??C (97.7 ??F) Temp: [36.5 ??C (97.7 ??F)-36.7 ??C (98.1 ??F)] Heart Rate Heart Rate: 94 Heart Rate: [87-94] Blood Pressure BP: 103/82 mmHg BP: (96-129)/(57-82) Respiratory Rate Resp: 18 Resp: [18] SpO2 SpO2: 99 % SpO2: [99 %] Art BP BP (Arterial Line): -- Physical Exam Gen: NAD, resting in bed CV: RRR, no m/r/g Resp: CTAB, no wheezing Abdomen: gravid, obese, soft, NT/ND Extremities: non tender, tr edema b/l. Monitoring: NST reactive yesterday, pending today. Most Recent Ultrasound 02/24/2015 @ 32w6d: Cephalic/anterior placenta EFW 2728g 71% BRIDGET 14.5, MVP 5.6 There is an equivical small residual subchorionic hemorrhage at the inferior margin of the placenta. If present it is smaller than on prior ultrasound. Interval growth is normal. Results for MARTINEZ RICHARDSON ( ) as of 03/01/2015 06:41 Ref. Range 02/28/2015 06:25 02/28/2015 09:07 02/28/2015 14:34 02/28/2015 20:00 POC Glucose Latest Range: 60-199 mg/dL 84 107 111 135 GBS neg 02/23/15 Assessment & Plan: Martinez Richardson is a 29 y.o. at 36w3d gestation admitted for presumed chronic placental abruption with an anterior placenta. significant for GDMA2 on insulin,obesity, h/o CS x2, and h/o SAB and D&C x2. Now betamethasone and magnesium complete. HD#41, BFD#2. Placental Abruption: Bleeding consistent with chronic abruption. Intermittent small volume vaginal bleeding. Patient continues to have near daily vaginal bleeding, and continues to require hospitalization to follow bleeding. Low threshold to deliver earlier if bleeding increases. ?? Steroid status: Betamethasone complete 01/21, magnesium complete for neuroprotection 01/28 ?? Delivery Indications: non reassuring status or maternal status ?? Delivery Plan: Repeat section (history of LTCS x2). She desires BTL at the time of delivery (consented). ?? Scheduled c/s on 03/06/2015 and during a week day when full staff is present. Consultations: neonatology ?? Keep active type/screen Well-Being: reassuring status. Cephalic. - NST once daily - Last growth US 02/24 showed appropriate growth. GDMA2. Increasing insulin needs this admission, had several fasting and postprandial elevations. Blood sugar well controlled yesterday. Will continue to observe and increase insulin as needed. Goal glucose control of <100 fasting and 140 pp. ?? Current insulin regimen - NPH 24 u qAM and 22 u qPM; Novalog 24 U breakfast, 26 U lunch, 28 U dinner. ?? Weekly weights ?? Carb control diet Constipation - scheduled Miralax and colace Disposition: Patient with ongoing intermittent bleeding throughout hospitalization, given continuedbleeding, she will likely require hospitalization for the remainder of her . Goal for the Day: continued inpatient surveillance for placental abruption, continue diabetes management, increase activity to permit walking off the unit. Patient seen, examined, and the plan discussed during MDR in the presence of Dr. Gan Nikos Attending. Vinicius Mack MD PGY4 03/01/2015 MFM Attending Note I saw the patient on interdisciplinary rounds with the team and participated in her review of systems, HPI and physical exam, I also reviewed her chart. I agree with the assessment and plan above. Ted is admitted with chronic abruption in the setting of 2 prior c/s, at risk for massive hemorrhage and also GDMA2, currently under good control. She is now having daily bleeding, quarter size spo ts that resolve after the morning. Csarean section is scheduled for 37 weeks secondary to chronic abruption. We will deliver sooner if there is significant bleeding. We discussed this again today at rounds. Delivery Indications: progressive labor, non reassuring status and massive hemorrhage Signed Zia Gan MD 03/01/2015 * Macario Musa - 02/28/2015 5:47 PM EDT Nonstress Test, Fetus A NST Start Time: 1655 (02/28/151744) HR (beats/min): 130 (02/28/151744) Variability: moderate (amplitude range 6 to 25 bpm) (02/28/151744) Accelerations: present (02/28/151744) Decelerations: none (02/28/151744) Contraction Frequency (min): none (02/28/151744) Nonstress Test Interpretation: Reactive, >32 weeks: two 15 bpm accelerations lasting 15 seconds (02/28/151744) Overall Impression: Reassuring for gestational age (02/28/151744) Comments: (02/25/15 7206) Macario Musa MD PGY3 02/28/2015 Associated attestation - Yesenia Donahue MD - 02/28/2015 6:15 PM EDT I personally reviewed the FHR Tracing and agree with the Resident???s interpretation. Yesenia Donahue MD * Zia Gan MD - 02/28/2015 10:53 AM EDT Obstetrical Antepartum Progress Note Patient ID: Martinez Richardson is a 29 y.o. at 36w2d, now HD#40, BFD #1 admitted for presumed chronic placental abruption with an anterior placenta. complicated by GDMA2 on insulin, obesity, h/o CS x2, and h/o SAB and D&C x2. Betamethasone and magnesium complete. 24 Hour Events - one spot of bright red blood in pad yesterday approximately 1 x 3 inches. Subjective: Martinez reports no further bleeding. She continues to try to walk around the unit to improve conditioning. Denies LOF, cramping/contractions. Reports good FM. Denies sob, cp, n/v, leg pain. Eating, sleeping, voiding, and moving her bowels w/o difficulty. Review of Systems: 6 point review of systems reviewed as above, otherwise negative Objective: Last value Range last 24 hrs Temperature Temp: 36.6 ??C (97.9 ??F) Temp: [36.6 ??C (97.9 ??F)-36.9 ??C (98.4 ??F)] Heart Rate Heart Rate: 92 Heart Rate: [90-92] Blood Pressure BP: 96/57 mmHg BP: (96-121)/(57-77) Respiratory Rate Resp: 18 Resp: [16-18] SpO2 SpO2: 100 % SpO2: [100 %] Art BP BP (Arterial Line): -- Physical Exam Gen: NAD, resting in bed CV: RRR, no m/r/g Resp: CTAB, no wheezing Abdomen: gravid, obese, soft, NT/ND Extremities: non tender, tr edema b/l. Heart Rate Interpretation: NST reactive yesterday, repeat pending today. Please see separate documentation. Most Recent Ultrasound 02/24/2015 32w6d Cephalic/anterior placenta EFW 2728g 71% BRIDGET 14.5, MVP 5.6 There is an equivical small residual subchorionic hemorrhage at the inferior margin of the placenta. If present it is smaller than on prior ultrasound. Interval growth is normal. Results for MARTINEZ RICHARDSON ( ) as of 02/28/2015 06:54 Ref. Range 02/27/2015 06:17 02/27/2015 09:06 02/27/2015 19:46 02/28/2015 06:25 POC Glucose Latest Range: 60-199 mg/dL 83 103 110 84 GBS neg 02/23/15 Assessment & Plan: Martinez Richardson is a 29 y.o. at 36w2d gestation admitted for presumed chronic placental abruption with an anterior placenta. significant for GDMA2 on insulin,obesity, h/o CS x2, and h/o SAB and D&C x2. Now betamethasone and magnesium complete. HD#40, BFD#5. Placental Abruption: Bleeding consistent with chronic abruption. Intermittent small volume vaginal bleeding, now stable- continue hospitalization to follow bleeding until resolved/bleed free x7 days minimum, patient will likely require hospitalization for duration of given bleeding pattern. Low threshold to deliver earlier if bleeding increases. ??? Steroid status: Betamethasone complete 01/21, magnesium complete for neuroprotection 01/28 ??? Delivery Indications: non reassuring status or maternal status ??? Delivery Plan: Repeat section (history of LTCS x2). She desires BTL at the time of delivery (consented). ??? Scheduled c/s on 03/06/2015 and during a week day when full staff is present. Consultations: neonatology ??? Keep active type/screen Well-Being: reassuring status. Cephalic. - NST once daily - Last growth US 02/24 showed appropriate growth. GDMA2. Increasing insulin needs this admission, had several fasting and postprandial elevations. Blood sugar well controlled yesterday. Will continue to observe and increase insulin as needed. Goal glucose control of <100 fasting and 140 pp. ?? Current insulin regimen - NPH 24 u qAM and 22 u qPM; Novalog 24 U breakfast, increased from 24->26 U lunch yesterday, 28 U dinner. ?? Every weekly weights ?? Carb control diet ?? growth appropriate Constipation - scheduled Miralax and colace Disposition: Patient with ongoing intermittent bleeding throughout hospitalization, given continuedbleeding, she will likely require hospitalization for the remainder of her . Goal for the Day: continued inpatient surveillance for placental abruption, continue diabetes management, increase activity to permit walking off the unit. Patient seen, examined, and the plan discussed with Dr. Gan, [facility] Attending. Macario Musa MD PGY3 02/28/2015 MFM Attending Note Attending Progress Note Zia Gan MD I reviewed the patient at rounds with the team. I agree with the documented findings and plan of care of Dr. Musa, the resident, except as noted below. My evaluation is as below: Subjective: Started having more bleeding yesterday while walking, was slightly more than prior bleed. Objective: ??? Temp: [36.6 ??C (97.9 ??F)-36.9 ??C (98.4 ??F)] ??? Heart Rate: [90-92] ??? Resp: [16-18] ??? BP: (96-121)/(57-77) ??? SpO2: [100 %] ??? Abdomen: Soft, non-tender, not distended ??? Uterus: Soft, Non-tender ??? Extremities: trace edema ??? NST: pending for today, please see separate documentation. Impression & Plan 36w2d IUP with an ERIC of 03/26/2015, Set as working upon episode creation, admitted with chronic abruption in the setting of 2 prior c/s, at risk for massive hemorrhage and also GDMA2, currently under good control. She had gone 4 days without bleeding and we slightly increased her activity. Unfortunately, this resulted in increased bleeding yesterday. She will decrease her activity back to its prior level. Yarelis section is scheduled for 37 weeks secondary to chronic abruption. We will deliver sooner if there is significant bleeding. Delivery Indications: progressive labor, non reassuring status and massive hemorrhage Zia Gan MD 02/28/2015 Signed Zia Gan MD 02/28/2015 * Zia Gan MD - 02/27/2015 11:05 AM EDT NST Nonstress Test, Fetus A NST Start Time: 0909 (02/27/15 1103) HR (beats/min): 145 (02/27/15 1103) Variability: moderate (amplitude range 6 to 25 bpm) (02/27/15 1103) Accelerations: present (02/27/15 1103) Decelerations: none (02/27/15 1103) Contraction Frequency (min): none (02/27/15 1103) Nonstress Test Interpretation: Reactive, >32 weeks: two 15 bpm accelerations lasting 15 seconds (02/27/15 1103) Overall Impression: Reassuring for gestational age (02/27/15 1103) Comments: (02/25/15 5276) Vinicius Mack MD PGY4 02/27/2015 I personally reviewed and interpreted this NST. * Zia Gan MD - 02/27/2015 7:50 AM EDT Obstetrical Antepartum Progress Note Patient ID: Martinez Richardson is a 29 y.o. at 36w1d, now HD#39, BFD #4 admitted for presumed chronic placental abruption with an anterior placenta. complicated by GDMA2 on insulin, obesity, h/o CS x2, and h/o SAB and D&C x2. Betamethasone and magnesium complete. 24 Hour Events - no acute events Subjective: Martinez reports no further bleeding. She does report feeling very tired. Denies LOF, cramping/contractions. Reports good FM. Denies sob, cp, n/v, leg pain. Eating, sleeping, voiding, and moving her bowels w/o difficulty. Review of Systems: 6 systems reviewed as above, otherwise negative Objective: Last value Range last 24 hrs Temperature Temp: 36.8 ??C (98.2 ??F) Temp: [36.6 ??C (97.9 ??F)-36.8 ??C (98.2 ??F)] Heart Rate Heart Rate: 89 Heart Rate: [89-97] Blood Pressure BP: 116/78 mmHg BP: (109-116)/(69-78) Respiratory Rate Resp: 18 Resp: -- SpO2 SpO2: 99 % SpO2: -- Art BP BP (Arterial Line): -- Physical Exam Gen: NAD, resting in bed CV: RRR, no m/r/g Resp: CTAB, no wheezing Abdomen: gravid, obese, soft, NT/ND Extremities: non tender, tr edema b/l. Heart Rate Interpretation: NST reactive yesterday, repeat pending today. Please see separate documentation. Most Recent Ultrasound 02/24/2015 32w6d Cephalic/anterior placenta EFW 2728g 71% BRIDGET 14.5, MVP 5.6 There is an equivical small residual subchorionic hemorrhage at the inferior margin of the placenta. If present it is smaller than on prior ultrasound. Interval growth is normal. Results for MARTINEZ RICHARDSON ( ) as of 02/26/2015 23:42 Ref. Range 02/26/2015 06:39 02/26/2015 09:42 02/26/2015 14:05 02/26/2015 19:25 POC Glucose Latest Range: 60-199 mg/dL 89 116 138 111 GBS neg 02/23/15 Assessment & Plan: Martinez Richardson is a 29 y.o. at 36w1d gestation admitted for presumed chronic placental abruption with an anterior placenta. significant for GDMA2 on insulin,obesity, h/o CS x2, and h/o SAB and D&C x2. Now betamethasone and magnesium complete. HD#39, BFD#4. Placental Abruption: Bleeding consistent with chronic abruption, now stable- continue hospitalization to follow bleeding until resolved/bleed free x7 days minimum, patient will likely require hospitalization for duration of given bleeding pattern. Low threshold to deliver earlier if bleeding increases. ?? Steroid status: Betamethasone complete 01/21, magnesium complete for neuroprotection 01/28 ?? Delivery Indications: non reassuring status or maternal status ?? Delivery Plan: Repeat section (history of LTCS x2). She desires BTL at the time of delivery (consented). ?? Scheduled c/s on 03/06/2015 and during a week day when full staff is present. Consultations: neonatology ?? Keep active type/screen Well-Being: reassuring status. Cephalic. - NST once daily - Last growth US 02/24 showed appropriate growth. GDMA2. Increasing insulin needs this admission, had several fasting and postprandial elevations. Blood sugar well controlled yesterday. Will continue to observe and increase insulin as needed. Goal glucose control of <100 fasting and 140 pp. ?? Current insulin regimen - NPH 24 u qAM and 22 u qPM; Novalog 24 U breakfast, increased from 24->26 U lunch, 28 U dinner. ?? Every weekly weights ?? Carb control diet ?? growth appropriate Constipation - scheduled Miralax and colace Disposition: Patient with ongoing intermittent bleeding throughout hospitalization, given continuedbleeding, she will likely require hospitalization for the remainder of her . Goal for the Day: continued inpatient surveillance for placental abruption, continue diabetes management, increase activity to permit walking off the unit. Patient seen, examined, and the plan discussed with Dr. Gan, [facility] Attending. Vinicius Mack MD PGY4 02/26/2015 MFM Attending Note I saw the patient on interdisciplinary rounds with the team and participated in her review of systems, HPI and physical exam, I also reviewed her chart. I agree with the assessment and plan above. Chronic abruption, stable for 4 days, will increase activity today to help improve her exercise tolerance in anticipation of delivery. Signed Zia Gan MD 02/27/2015 * Zia Gan MD - 02/26/2015 2:51 PM EDT 02/26/15 1031 Nonstress Test, Fetus A HR (beats/min) 155 Variability moderate (amplitude range 6 to 25 bpm) Accelerations present Decelerations none Contraction Frequency (min) irregular Nonstress Test Interpretation Reactive, >32 weeks: two 15 bpm accelerations lasting 15 seconds Overall Impression Reassuring for gestational age I personally reviewed and interpreted this NST. * Zia Gan MD - 02/26/2015 2:06 PM EDT Obstetrical Antepartum Progress Note Patient ID: Martinez Richardson is a 29 y.o. at 36w0d, now HD#38, BFD #3 admitted for presumed chronic placental abruption with an anterior placenta. complicated by GDMA2 on insulin, obesity, h/o CS x2, and h/o SAB and D&C x2. Betamethasone and magnesium complete. 24 Hour Events - no acute events Subjective: Martinez reports no further bleeding. She does report feeling very tired. Denies LOF, cramping/contractions. Reports good FM. Denies sob, cp, n/v, leg pain. Eating, sleeping, voiding, and moving her bowels w/o difficulty. Review of Systems: 6 systems reviewed as above, otherwise negative Objective: Last value Range last 24 hrs Temperature Temp: 36.6 ??C (97.9 ??F) Temp: [36.5 ??C (97.7 ??F)-36.6 ??C (97.9 ??F)] Heart Rate Heart Rate: 97 Heart Rate: [90-97] Blood Pressure BP: 109/69 mmHg BP: (109-129)/(69-73) Respiratory Rate Resp: 18 Resp: [18] SpO2 SpO2: 99 % SpO2: [99 %] Art BP BP (Arterial Line): -- Physical Exam Gen: NAD, resting in bed CV: RRR, no m/r/g Resp: CTAB, no wheezing Abdomen: gravid, obese, soft, NT/ND Extremities: non tender, tr edema b/l. Heart Rate Interpretation: NST reactive yesterday, repeat pending today. Please see separate documentation. Most Recent Ultrasound 02/24/2015 32w6d Cephalic/anterior placenta EFW 2728g 71% BRIDGET 14.5, MVP 5.6 There is an equivical small residual subchorionic hemorrhage at the inferior margin of the placenta. If present it is smaller than on prior ultrasound. Interval growth is normal. Results for MARTINEZ RICHARDSON ( ) as of 02/26/2015 14:07 Ref. Range 02/25/2015 07:05 02/25/2015 09:43 02/25/2015 14:35 02/25/2015 19:23 02/26/2015 06:39 02/26/2015 09:42 POC Glucose Latest Range: 60-199 mg/dL 91 115 164 158 89 116 Assessment & Plan: Martinez Richardson is a 29 y.o. at 36w0d gestation admitted for presumed chronic placental abruption with an anterior placenta. significant for GDMA2 on insulin,obesity, h/o CS x2, and h/o SAB and D&C x2. Now betamethasone and magnesium complete. HD#38, BFD#3. Placental Abruption: Bleeding consistent with chronic abruption, now stable- continue hospitalization to follow bleeding until resolved/bleed free x7 days minimum, patient will likely require hospitalization for duration of given bleeding pattern. ??? Steroid status: Betamethasone complete 01/21, magnesium complete for neuroprotection 01/28 ??? Delivery Indications: non reassuring status or maternal status ??? Delivery Plan: Repeat section (history of LTCS x2). She desires BTL at the time of delivery (consented). ??? Scheduled c/s on 03/06/2015 and during a week day when full staff is present. Consultations: neonatology ??? Keep active type/screen Well-Being: reassuring status. Cephalic. - NST once daily - Last growth US 02/24 showed appropriate growth. - f/u GBS Cx GDMA2. Increasing insulin needs this admission, had several fasting and postprandial elevations. Two elevated postprandial blood sugars yesterday. Will continue to observe today and increase insulin as needed. Goal glucose control of <100 fasting and 140 pp. ?? Current insulin regimen - NPH 24 u qAM and 22 u qPM; Novalog 24 U breakfast, 24 U lunch, 28 U dinner. ?? Every weekly weights ?? Carb control diet ?? growth appropriate Constipation - scheduled Miralax and colace Disposition: Patient with ongoing bleeding throughout hospitalization, given continued bleeding, she will likely require hospitalization for the remainder of her . Goal for the Day: continued inpatient surveillance for placental abruption, continue diabetes management. Patient seen, examined, and the plan discussed with CALE Cano Attending. Macario Musa MD PGY3 02/26/2015 Attending Progress Note Zia Gan MD I reviewed the above note and discussed the patient at rounds with the team. I agree with the documented findings and plan of care. My evaluation is as below: Subjective: No complaints, asking for Rx for breast pump, good FM, no bleeding since Friday, no leaking or contractions. Objective: ??? Temp: [36.5 ??C (97.7 ??F)-36.6 ??C (97.9 ??F)] ??? Heart Rate: [90-97] ??? Resp: [18] ??? BP: (109-129)/(69-73) ??? SpO2: [99 %] ??? Abdomen: Soft, non-tender, not distended ??? Uterus: Soft, Non-tender ??? Extremities: trace edema ??? NST: reactive for today, please see separate documentation. Impression & Plan 36w0d IUP with an ERIC of 03/26/2015, Set as working upon episode creation, admitted with chronic abruption with bleeding every few days and GDMA2. section is scheduled for 37 weeks secondary to chronic abruption. We will deliver sooner if there is significant bleeding. I agree with the assessment and plan of Dr. Musa. Zia Gan MD 02/26/2015 * Yvonne Chung MD - 02/25/2015 1:50 PM EDT NST Note Nonstress Test, Fetus A NST Start Time: 1039 (02/25/15 1349) HR (beats/min): 140 (02/25/15 1349) Variability: moderate (amplitude range 6 to 25 bpm) (02/25/15 1349) Accelerations: present (02/25/15 1349) Decelerations: none (02/25/15 134) Contraction Frequency (min): absent (02/25/15 134) Nonstress Test Interpretation: Reactive, >32 weeks: two 15 bpm accelerations lasting 15 seconds (02/25/15 134) Overall Impression: Reassuring for gestational age (02/25/15 134) Comments: (02/25/151348) NST Stop Time: 1108 Carly Camp MD, PGY3 02/25/2015 I personally reviewed and interpreted this NST. * Mayte Ayala RN - 02/25/2015 11:34 AM EDT 02/25/15 1133 Uterine Activity Assessment Method palpation;TOCO (external tocotransducer) Contraction Frequency (min) none Contraction Intensity no contractions Uterine Resting Tone soft by palpation Assessment Movement active Mode continuous external HR (beats/min) 145 Variability moderate (amplitude range 6 to 25 bpm) Accelerations present Decelerations none NST complete, pt off EFM per Dr Camp * Zia Gan MD - 02/25/2015 7:44 AM EDT Obstetrical Interdisciplinary Antepartum Progress Note Patient ID: Martinez Richardson is a 29 y.o. at 35w6d, now HD#37, BFD #2 admitted for presumed chronic placental abruption with an anterior placenta. complicated by GDMA2 on insulin, obesity, h/o CS x2, and h/o SAB and D&C x2. Betamethasone and magnesium complete. 24 Hour Events - formal ultrasound yesterday. Subjective: Martinez reports no further bleeding. Denies LOF, cramping/contractions. Reports good FM.Denies sob, cp, n/v, leg pain. Eating, sleeping, voiding, and moving her bowels w/o difficulty. Review of Systems: 6 systems reviewed as above, otherwise negative Objective: Last value Range last 24 hrs Temperature Temp: 36.4 ??C (97.5 ??F) Temp: [36.4 ??C (97.5 ??F)-36.7 ??C (98.1 ??F)] Heart Rate Heart Rate: 98 Heart Rate: [80-98] Blood Pressure BP: 108/70 mmHg BP: (108-127)/(61-72) Respiratory Rate Resp: 16 Resp: -- SpO2 SpO2: 99 % SpO2: [81 %-99 %] Art BP BP (Arterial Line): -- Physical Exam Gen: NAD, resting in bed CV: RRR, no m/r/g Resp: CTAB, no wheezing Abdomen: gravid, obese, soft, NT/ND Extremities: non tender, tr edema b/l. Heart Rate Interpretation: NST reactive yesterday, repeat pending today Most Recent Ultrasound 02/24/2015 32w6d Cephalic/anterior placenta EFW 2728g 71% BRIDGET 14.5, MVP 5.6 There is an equivical small residual subchorionic hemorrhage at the inferior margin of the placenta. If present it is smaller than on prior ultrasound. Interval growth is normal. Results for MARTINEZ RICHARDSON ( ) as of 02/25/2015 01:22 Ref. Range 02/24/2015 06:37 02/24/2015 09:15 02/24/2015 13:22 02/24/2015 19:59 POC Glucose Latest Range: 60-199 mg/dL 81 124 126 123 Assessment & Plan: Martinez Richardson is a 29 y.o. at 35w6d gestation admitted for presumed chronic placental abruption with an anterior placenta. significant for GDMA2 on insulin,obesity, h/o CS x2, and h/o SAB and D&C x2. Now betamethasone and magnesium complete. HD#37, BFD#2. Placental Abruption: Bleeding consistent with chronic abruption, now stable- continue hospitalization to follow bleeding until resolved/bleed free x7 days minimum, patient will likely require hospitalization for duration of given bleeding pattern. ?? Steroid status: Betamethasone complete 01/21, magnesium complete for neuroprotection 01/28 ?? Delivery Indications: non reassuring status or maternal status ?? Delivery Plan: Repeat section (history of LTCS x2). She desires BTL at the time of delivery (consented). ?? Scheduled c/s on 03/06/2015 and during a week day when full staff is present. Consultations: neonatology ?? Keep active type/screen Well-Being: reassuring status. Cephalic. - NST once daily - Last growth US 02/24 showed appropriate growth. - f/u GBS Cx GDMA2. Increasing insulin needs this admission, had several fasting and postprandial elevations. Now under better control. Goal glucose control of <100 fasting and 140 pp. ?? Current insulin regimen - NPH 24 u qAM and 22 u qPM; Novalog 24 U breakfast, 24 U lunch, 28 U dinner. ?? Every weekly weights ?? Carb control diet ?? growth appropriate Constipation - scheduled Miralax and colace Disposition: Patient with ongoing bleeding throughout hospitalization, given continued bleeding, she will likely require hospitalization for the remainder of her . Goal for the Day: continued inpatient surveillance for placental abruption, continue diabetes management. Patient seen, examined, and the plan discussed with Dr. Gan, [facility] Attending. Macario Musa MD PGY3 02/25/2015 MFM Attending Note I saw the patient with Dr. Musa and participated in her review of systems, HPI and physical exam, I also reviewed her chart. I agree with the assessment and plan above. section is scheduledfor 37 weeks secondary to chronic abruption. We will deliver sooner if there is significant bleeding. Signed Zia Gan MD 02/25/2015 * Yvonne Chung MD - 02/24/2015 2:02 PM EDT NST Nonstress Test, Fetus A NST Start Time: 0812 (02/24/15836) HR (beats/min): 150 (02/24/15836) Variability: moderate (amplitude range 6 to 25 bpm) (02/24/15836) Accelerations: present (02/24/15836) Decelerations: none (02/24/15836) Contraction Frequency (min): none (02/24/15836) Nonstress Test Interpretation: Reactive, >32 weeks: two 15 bpm accelerations lasting 15 seconds (02/24/15 0837) Overall Impression: Reassuring for gestational age (02/24/15 0837) Comments: n/a (02/18/15 1015) Vinicius Mack MD PGY4 02/24/2015 I personally reviewed and interpreted this NST. * Schuyler Steiner MD - 02/24/2015 6:28 AM EDT Obstetrical Interdisciplinary Antepartum Progress Note Patient ID: Martinez Richardson is a 29 y.o. at 35w5d, now HD#36 , BFD #1 admitted for presumedchronic placental abruption with an anterior placenta. complicated by GDMA2 on insulin, obesity, h/o CS x2, and h/o SAB and D&C x2. Betamethasone and magnesium complete. 24 Hour Events - one < quarter-sized spot of bright red blood on pad yesterday. Subjective: Martinez reports no further bleeding overnight. Denies LOF, cramping/contractions. Reports good FM. Denies sob, cp, n/v, leg pain. Eating, sleeping, voiding, and moving her bowels w/o difficulty. Review of Systems: 6 systems reviewed as above, otherwise negative Objective: Last value Range last 24 hrs Temperature Temp: 36.7 ??C (98.1 ??F) Temp: [36.7 ??C (98.1 ??F)] Heart Rate Heart Rate: 91 Heart Rate: [87-95] Blood Pressure BP: 108/66 mmHg BP: (79-108)/(60-67) Respiratory Rate Resp: 16 Resp: [16] SpO2 SpO2: 97 % SpO2: [97 %] Art BP BP (Arterial Line): -- Physical Exam Gen: NAD, sitting up in bed CV: RRR, no m/r/g Resp: CTAB, no wheezing Abdomen: gravid, obese, soft, NT/ND Extremities: non tender, tr edema b/l. Heart Rate Interpretation: NST reactive yesterday, repeat pending today Most Recent Ultrasound 02/06/15 32w6d EFW 2202g 79% BRIDGET 15.6, MVP 5.63 5.5 x 2 subchorionic hemorrhage at inferior portion of placenta. Cephalic, anterior placenta Results for MARTINEZ RICHARDSON ( ) as of 02/24/2015 05:59 Ref. Range 02/23/2015 06:47 02/23/2015 09:31 02/23/2015 14:14 02/23/2015 19:34 POC Glucose Latest Range: 60-199 mg/dL 94 139 108 140 Assessment & Plan: Martinez Richardson is a 29 y.o. at 35w5d gestation admitted for presumed chronic placental abruption with an anterior placenta. significant for GDMA2 on insulin,obesity, h/o CS x2, and h/o SAB and D&C x2. Now betamethasone and magnesium complete. HD#36, BFD#1. Placental Abruption: Bleeding consistent with chronic abruption, now stable- continue hospitalization to follow bleeding until resolved/bleed free x7 days minimum, patient will likely require hospitalization for duration of given bleeding pattern. ??? Steroid status: Betamethasone complete 01/21, magnesium complete for neuroprotection 01/28 ??? Delivery Indications: non reassuring status and maternal deterioration ??? Delivery Plan: Repeat section (history of LTCS x2). She desires BTL at the time of delivery (consented). ??? Scheduled c/s on 03/06/2015 and during a week day when full staff is present. Consultations: neonatology ??? Keep active type/screen Well-Being: reassuring status. Cephalic. - NST once daily - Last growth US 02/06 showed appropriate growth. Will repeat today - f/u GBS Cx GDMA2. Increasing insulin needs this admission, had several fasting and postprandial elevations. Now under better control. Goal glucose control of <100 fasting and 140 pp. ?? Current insulin regimen - NPH 24 u qAM and 22 u qPM; Novalog 24 U breakfast, 24 U lunch, 28 U dinner. ?? Every weekly weights ?? Carb control diet ?? growth appropriate Constipation - scheduled Miralax and colace Disposition: Patient with ongoing bleeding throughout hospitalization, given continued bleeding, she will likely require hospitalization for the remainder of her . Goal for the Day: continued inpatient surveillance for placental abruption, continue diabetes management. Patient seen, examined, and the plan discussed on MDR with charge nurse, day nurse and CALE Fox Attending. Vinicius Mack MD PGY4 02/24/2015 Maternal Medicine Attending Note Patient: Martinez Richardson I performed a history and physical exam of the patient and discussed her management with Dr. Mack.I reviewed Dr. Mack's note and agree with the documented findings and plan of care. My evaluation is as below: 35w5d weeks EGA; Patient admitted with complicated by chronic abruption. LOS: 35 days Subjective: No complaints. Good movement. No contractions. Last value Range last 8 hrs Temperature Temp: 36.5 ??C (97.7 ??F) Temp: [36.5 ??C (97.7 ??F)-36.7 ??C (98.1 ??F)] Heart Rate Heart Rate: 89 Heart Rate: [82-89] Blood Pressure BP: 108/67 mmHg BP: (108-124)/(61-67) Respiratory Rate Resp: 16 Resp: -- SpO2 SpO2: 97 % SpO2: [97 %-98 %] *Abdomen: Soft, non-tender, not distended *Uterus: Soft, Non-tender *Extremities: Non-tender; no edema *NST: See separate report. Impression: Stable abruption at 35w5d weeks EGA. Gestational diabetes well controlled on insulin. Plan: ??? Continue modified bedrest with observation for reucrrent bleeding. ??? Repeat delivery scheduled 03/06/15 at 37w1d ??? Continue daily NST. ? ? Active type & screen. ??? Deliver for non-reassuring maternal or status. Memo Steiner MD Maternal- Medicine * Yesenia Donahue MD - 02/23/2015 10:22 AM EDT 02/23/15 1020 Nonstress Test, Fetus A HR (beats/min) 135 Variability moderate (amplitude range 6 to 25 bpm) Accelerations present Decelerations none Contraction Frequency (min) none Nonstress Test Interpretation Reactive, >32 weeks: two 15 bpm accelerations lasting 15 seconds Overall Impression Reassuring for gestational age NST Times NST Start Time 0906 NST Stop Time 1020 I personally reviewed and interpreted this NST. Yesenia Donahue MD * Schuyler Steiner MD - 02/23/2015 9:27 AM EDT Obstetrical Interdisciplinary Antepartum Progress Note Patient ID: Martinez Richardson is a 29 y.o. at 35w4d gestation, now HD#35 , BFD #1 admitted for presumed chronic placental abruption with an anterior placenta. complicated by GDMA2 on insulin, obesity, h/o CS x2, and h/o SAB and D&C x2. Betamethasone and magnesium complete. 24 Hour Events - 3 quarter-sized spots of blood on her pad yesterday (1 dark brown, 2 bright red.) Subjective: Martinez reports no further bleeding overnight. Denies LOF, cramping/contractions. Reports good FM. Review of Systems: Denies sob, cp, n/v, leg pain. All systems are otherwise reviewed and are negative. Objective: Last value Range last 24 hrs Temperature Temp: 36.7 ??C (98.1 ??F) Temp: [36.7 ??C (98.1 ??F)-36.9 ??C (98.4 ??F)] Heart Rate Heart Rate: 90 Heart Rate: [79-106] Blood Pressure BP: 100/64 mmHg BP: (79-126)/(60-76) Respiratory Rate Resp: 16 Resp: [16] SpO2 SpO2: 97 % SpO2: [97 %] Art BP BP (Arterial Line): -- Physical Exam Gen: NAD, calm CV: RRR, no m/r/g Resp: CTAB, unlabored Abdomen: gravid, obese, soft, NT/ND Heart Rate Interpretation: NST reactive yesterday, repeat pending today Most Recent Ultrasound 02/06/15 32w6d EFW 2202g 79% BRIDGET 15.6, MVP 5.63 5.5 x 2 subchorionic hemorrhage at inferior portion of placenta. Cephalic, anterior placenta Results for MARTINEZ RICHARDSON ( ) as of 02/23/2015 06:28 Ref. Range 02/22/2015 06:24 02/22/2015 09:01 02/22/2015 13:34 02/22/2015 18:55 POC Glucose Latest Range: 60-199 mg/dL 92 142 164 134 Assessment & Plan: Martinez Richardson is a 29 y.o. at 35w4d gestation admitted for presumed chronic placental abruption with an anterior placenta. significant for GDMA2 on insulin,obesity, h/o CS x2, and h/o SAB and D&C x2. Now betamethasone and magnesium complete. HD#35, BFD#1. Placental Abruption: Bleeding consistent with chronic abruption, now stable- continue hospitalization to follow bleeding until resolved/bleed free x7 days minimum, patient will likely require hospitalization for duration of given bleeding pattern. ??? Steroid status: Betamethasone complete 01/21, magnesium complete for neuroprotection 01/28 ??? Delivery Indications: non reassuring status and maternal deterioration ??? Delivery Plan: Repeat section (history of LTCS x2). She desires BTL at the time of delivery (consented). ??? Scheduled c/s on 03/06/2015 and during a week day when full staff is present. Consultations: neonatology ??? Keep active type/screen Well-Being: reassuring status. Cephalic. - NST once daily - Last growth US 02/06 showed appropriate growth. Will repeat in approximately 3 weeks. - Repeat GBS today. GDMA2. Increasing insulin needs this admission, had several fasting and postprandial elevations. Now under better control after increasing insulin except slightly elevated 1 hour pp yesterday. Will continue to follow and increase dose PRN. Goal glucose control of <100 fasting and 140 pp. ?? Current insulin regimen - NPH 24 u qAM and 22 u qPM; Novalog 24 U breakfast, 24 U lunch, 28 U dinner. ?? Every weekly weights ?? Carb control diet ?? growth appropriate Constipation - scheduled Miralax and colace Disposition: Patient with ongoing bleeding throughout hospitalization, given continued bleeding, she will likely require hospitalization for the remainder of her . Goal for the Day: continued inpatient surveillance for placental abruption, continue diabetes management, collect GBS. Patient seen, examined, and the plan discussed on MDR with charge nurse, day nurse and CALE Fox Attending. Macario Musa MD PGY3 02/23/2015 Maternal Medicine Attending Note Patient: Martinez Richardson I performed a history and physical exam of the patient and discussed her management with Dr. Musa.I reviewed Dr. Musa's note and agree with the documented findings and plan of care. My evaluation is as below: 35w4d weeks EGA; Patient admitted with complicated by chronic abruption. LOS: 34 days Subjective: No complaints. Good movement. No contractions. Last value Range last 8 hrs Temperature Temp: 36.7 ??C (98.1 ??F) Temp: [36.7 ??C (98.1 ??F)] Heart Rate Heart Rate: 90 Heart Rate: [87-95] Blood Pressure BP: 100/64 mmHg BP: (79-106)/(60-67) Respiratory Rate Resp: 16 Resp: [16] SpO2 SpO2: 97 % SpO2: [97 %] *Abdomen: Soft, non-tender, not distended *Uterus: Soft, Non-tender *Extremities: Non-tender; no edema *NST: See separate report. Impression: Stable abruption at 35w4d weeks EGA. Plan: ??? Continue modified bedrest with observation for reucrrent bleeding for 7 days. ??? Continue daily NST. ? ? Active type & screen. ??? F/U ultrasound early next week. ??? Deliver for non-reassuring maternal or status. Memo Steiner MD Maternal- Medicine * Genesis Dukes - 02/22/2015 3:06 PM EDT Nutrition Services - Follow-up Note Martinez Richardson : 1985 AGE: 29 y.o. Patient Active Problem List Diagnosis Date Noted ??? Hospital-GDMA2 on insulin ??? Hospital-Previous delivery affecting 01/30/2015 ??? Hospital- with third trimester bleeding, antepartum 01/30/2015 ??? Supervision of high risk in second trimester 09/29/2014 ??? Gestational diabetes 09/29/2014 Reason for Nutrition Intervention: Follow-up Diet Order: Gestational CHO Counting Appetite: good Food allergies: NKFA Chewing/Swallowing difficulty: none Height: 170.2 cm Weight: 99.4 kg Body mass index is 34.34 kg/(m^2). Vitamins/Minerals: Vitamin, Tums noted Assessment: Patient denies further need for nutrition education, continues to eat well and order from room service without difficulty/complaint. Requesting to change afternoon snack. No further questions or concerns at this time. Nutrition Plan: Continue current diet. Continue high protein snacks. Encourage good po intake. Monitor weight. Support and encouragement provided. Nutrition services to follow weekly thru hospital course unless consulted in the interim. Genesis Dukes, DT * Griselda Hampton MD - 02/22/2015 2:06 PM EDT Nonstress Test, Fetus A NST Start Time: 1336 (02/22/15 1404) HR (beats/min): 135 (02/22/15 1404) Variability: moderate (amplitude range 6 to 25 bpm) (02/22/15 1404) Accelerations: present (02/22/15 1404) Decelerations: none (02/22/15 1404) Contraction Frequency (min): none (02/22/15 1404) Nonstress Test Interpretation: Reactive, >32 weeks: two 15 bpm accelerations lasting 15 seconds (02/22/15 1404) Overall Impression: Reassuring for gestational age (02/22/15 1404) Macario Musa MD PGY3 02/22/2015 I personally reviewed the FHR Tracing and agree with the Resident???s interpretation. Griselda Hampton MD * Tiffanie Rader RN - 02/22/2015 6:59 AM EDT 0624: Went into Martinez's room to obtain a blood glucose. At this time Martinez reported a moderate amount of dark red blood on the pad that she wore throughout the night. Vitals are stable and patient reports feeling well. Denies contractions or pain/cramping. MD Ontiveros was notified and requested an NST. An NST was initiated prior to change of shift to monitor well-being. * Schuyler Steiner MD - 02/22/2015 6:51 AM EDT Obstetrical Interdisciplinary Antepartum Progress Note Patient ID: Martinez Richardson is a 29 y.o. at 35w3d gestation, now HD#34 , BFD #0 admitted for presumed placental abruption with an anterior placenta. complicated by GDMA2 on insulin,obesity, h/o CS x2, and h/o SAB and D&C x2. Now betamethasone and magnesium complete. 24 Hour Events - Small amount of bright red bleeding yesterday when wiping. Quarter-sized dark brown blood on pad this morning. Subjective: Martinez reports no further bleeding since. Denies LOF, cramping/contractions. Reports good FM. Review of Systems: Denies sob, cp, n/v, leg pain. All systems are otherwise reviewed and are negative. Objective: Last value Range last 24 hrs Temperature Temp: 36.8 ??C (98.2 ??F) Temp: [36.5 ??C (97.7 ??F)-37.1 ??C (98.8 ??F)] Heart Rate Heart Rate: 88 Heart Rate: [86-96] Blood Pressure BP: 109/64 mmHg BP: (106-114)/(64-71) Respiratory Rate Resp: 18 Resp: [18] SpO2 SpO2: 98 % SpO2: [98 %] Art BP BP (Arterial Line): -- Physical Exam Gen: NAD, calm CV: RRR, no m/r/g Resp: CTAB, unlabored Abdomen: gravid, obese, soft, NT/ND Heart Rate Interpretation: NST reactive yesterday, repeat pending today Most Recent Ultrasound 02/06/15 32w6d EFW 2202g 79% BRIDGET 15.6, MVP 5.63 5.5 x 2 subchorionic hemorrhage at inferior portion of placenta. Cephalic, anterior placenta Results for MARTINEZ RICHARDSON ( ) as of 02/22/2015 06:57 Ref. Range 02/21/2015 06:42 02/21/2015 09:04 02/21/2015 13:10 02/21/2015 19:14 02/22/2015 06:24 POC Glucose Latest Range: 60-199 mg/dL 76 124 144 147 92 Assessment & Plan: Martinez Richardson is a 29 y.o. at 35w3d gestation admitted for presumed placental abruption with an anterior placenta. significant for GDMA2 on insulin, obesity, h/o CS x2, and h/o SAB and D&C x2. Now betamethasone and magnesium complete. HD#34, BFD#0. Placental Abruption: Bleeding appears to be resolving with old blood this AM consistent with abruption - continue hospitalization to follow bleeding until resolved/bleed free x7 days minimum, patientwill likely require hospitalization for duration of given bleeding pattern. ??? Steroid status: Betamethasone complete 01/21, magnesium complete for neuroprotection 01/28 ??? Delivery Indications: non reassuring status and maternal deterioration ??? Delivery Plan: Repeat section (history of LTCS x2). She desires BTL at the time of delivery (consented). ??? Scheduled c/s on 03/02/2015 and during a week day when full staff is present. Consultations: neonatology ??? Keep active type/screen Well-Being: reassuring status. Cephalic. - NST once daily ?? GDMA2. Increasing insulin needs this admission, had several fasting and postprandial elevations.Now under better control after increasing insulin. Goal glucose control of <100 fasting and 140 pp. ?? Current insulin regimen - NPH 24 u qAM and 22 u qPM; Novalog 24 U breakfast, 24 U lunch, 28 U dinner. ?? Every weekly weights ?? Carb control diet ?? growth appropriate Constipation - scheduled Miralax and colace Disposition: Patient with ongoing bleeding throughout hospitalization, given continued bleeding, she will likely require hospitalization for the remainder of her . Goal for the Day: continued inpatient surveillance for placental abruption, continue diabetes management Patient seen, examined, and the plan discussed on MDR with charge nurse and Dr. Steiner Nikos Attending. Macario Musa MD PGY3 02/22/2015 Maternal Medicine Attending Note Patient: Martinez Richardson I performed a history and physical exam of the patient and discussed her management with Dr. Musa.I reviewed Dr. Musa's note and agree with the documented findings and plan of care. My evaluation is as below: 35w3d weeks EGA; Patient admitted with complicated by chronic abruption and GDM. LOS: 33 days Subjective: No complaints. Good movement. No contractions. Last value Range last 8 hrs Temperature Temp: 36.8 ??C (98.2 ??F) Temp: [36.8 ??C (98.2 ??F)-37 ??C (98.6 ??F)] Heart Rate Heart Rate: 88 Heart Rate: [86-88] Blood Pressure BP: 109/64 mmHg BP: (109-114)/(64-67) Respiratory Rate Resp: 18 Resp: [18] SpO2 SpO2: 98 % SpO2: -- *Abdomen: Soft, non-tender, not distended *Uterus: Soft, Non-tender *Extremities: Non-tender; no edema *NST: See separate report. Impression: Stable abruption at 35w3d weeks EGA. Good glycemic control on current insulin regimen. Plan: ??? Continue modified bedrest with observation for reucrrent bleeding.. ??? Continue daily NST. ? ? Active type & screen. ??? Deliver for non-reassuring maternal or status. ??? Repeat and BTL scheduled at 37w1d, Friday, 06 March 2015. Memo Steiner MD Maternal- Medicine * Zee Puckett MD - 02/21/2015 4:35 PM EDT Antepartum NST Nonstress Test, Fetus A NST Start Time: 0905 (02/21/15 1634) HR (beats/min): 145 (02/21/15 1634) Variability: moderate (amplitude range 6 to 25 bpm) (02/21/15 1634) Accelerations: present (02/21/15 1634) Decelerations: none (02/21/15 1634) Contraction Frequency (min): None (02/21/15 1634) Nonstress Test Interpretation: Reactive, >32 weeks: two 15 bpm accelerations lasting 15 seconds (02/21/15 1634) Overall Impression: Reassuring for gestational age (02/21/15 1634) Comments: n/a (02/18/15 1015) Hermilo Puckett MD PGY-3 Associated attestation - Sanju Marcos MD - 02/22/2015 9:57 AM EDT I personally reviewed and interpreted this NST. Sanju Marcos MD * Schuyler Steiner MD - 02/21/2015 6:45 AM EDT Obstetrical Interdisciplinary Antepartum Progress Note Patient ID: Martinez Richardson is a 29 y.o. at 35w2d gestation, now HD#33 , BFD #3 admitted for presumed placental abruption with an anterior placenta. Antepartum course significant for GDMA2 oninsulin, obesity, h/o CS x2, and h/o SAB and D&C x2. Now betamethasone and magnesium complete. 24 Hour Events - none Subjective: Martinez reports a PARR yesterday that resolved spontaneously. She denies VB, lof overnight. Reports good FM. She reports in general her contractions are increasing in intensity, however, shehas not had any recently Review of SystemsDenies sob, cp, n/v, leg pain. All systems are otherwise reviewed and are negative. Physical ExamGen: NAD, calm CV: RRR, no m/r/g Resp: CTAB, unlabored GI: soft, NT/ND Last value Range last 24 hrs Temperature Temp: 36.8 ??C (98.2 ??F) Temp: [36.5 ??C (97.7 ??F)-37 ??C (98.6 ??F)] Heart Rate Heart Rate: 88 Heart Rate: [88-101] Blood Pressure BP: 106/70 mmHg BP: (105-115)/(65-71) Respiratory Rate Resp: 19 Resp: [18-19] SpO2 SpO2: 95 % SpO2: [95 %] Heart Rate Interpretation: NST reactive yesterday, repeat pending today Most Recent Ultrasound 02/06/15 32w6d EFW 2202g 79% BRIDGET 15.6 5.5 x 2 subchorionic hemorrhage at inferior portion of placenta. Cephalic, anterior placenta 02/20/2015 06:37 02/20/2015 09:16 02/20/2015 14:22 02/20/2015 18:52 POC Glucose 85 110 135 125 Assessment & Plan: Martinez Richardson is a 29 y.o. at 35w2d gestation admitted for presumed placental abruption with an anterior placenta. Antepartum course significant for GDMA2 on insulin,obesity, h/o CS x2, and h/o SAB and D&C x2. Now betamethasone and magnesium complete. Placental Abruption: Bleeding and uterine irritability consistent with abruption - continue hospitalization to follow bleeding until resolved/bleed free x7 days minimum, patient will likely require hospitalization for duration of given bleeding pattern. ?? Steroid status: Betamethasone complete 01/21, magnesium complete for neuroprotection 01/28 ?? Delivery Indications: non reassuring status and maternal deterioration ?? Delivery Plan: Repeat section (history of LTCS x2). She desires BTL at the time of delivery (consented). ?? Scheduled c/s on 03/02/2015 and during a week day when full staff is present. Consultations: neonatology ?? Keep active type/screen Well-Being: reassuring status. Cephalic. - NST once daily GDMA2. Increasing insulin needs this admission, Has had several fasting and postprandial elevationsand will need increases to PM NPH and meal-associated. ?? Goal glucose control of <100 fasting and 140 pp. ?? Current insulin regimen - NPH 24 u qAM and 22 u qPM; Novalog 22 U breakfast, 22 U lunch, 28 U dinner. Will increase novalog to 24 units with breakfast and lunch. ?? Every weekly weights ?? Carb control diet ?? growth appropriate Constipation - scheduled Miralax and colace Disposition: Patient with ongoing bleeding throughout hospitalization, given continued bleeding, she will likely requirehospitalization for the remainder of her . Goal for the Day: continued inpatient surveillance for placental abruption, continue diabetes management Patient seen, examined, and the plan discussed with CALE Fox Attending. Zee Puckett MD PGY3 02/21/2015 Maternal Medicine Attending Note Patient: Martinez Richardson I performed a history and physical exam of the patient and discussed her management with Dr. Puckett. I reviewed Dr. Puckett's note and agree with the documented findings and plan of care. My evaluation is as below: 35w2d weeks EGA; Patient admitted with complicated by chronic abruption and gestational diabetes. LOS: 32 days Subjective: No complaints. Good movement. No contractions. Last value Range last 8 hrs Temperature Temp: 37.1 ??C (98.8 ??F) Temp: [36.8 ??C (98.2 ??F)-37.1 ??C (98.8 ??F)] Heart Rate Heart Rate: 94 Heart Rate: [88-99] Blood Pressure BP: 106/67 mmHg BP: (105-106)/(65-70) Respiratory Rate Resp: 19 Resp: [19] SpO2 SpO2: 95 % SpO2: -- *Abdomen: Soft, non-tender, not distended *Uterus: Soft, Non-tender *Extremities: Non-tender; no edema *NST: See separate report. Impression: Stable abruption at 35w2d weeks EGA. Plan: ??? Continue modified bedrest with observation for reucrrent bleeding. ??? Continue daily NST. ? ? Active type & screen. ??? Deliver for non-reassuring maternal or status. Memo Steiner MD Maternal- Medicine * Zee Puckett MD - 02/20/2015 12:34 PM EDT Antepartum NST Nonstress Test, Fetus A NST Start Time: 0922 (02/20/15 1233) HR (beats/min): 150 (02/20/15 1233) Variability: moderate (amplitude range 6 to 25 bpm) (02/20/15 1233) Accelerations: present (02/20/15 1233) Decelerations: none (02/20/15 1233) Contraction Frequency (min): none (02/20/15 1233) Nonstress Test Interpretation: Reactive, >32 weeks: two 15 bpm accelerations lasting 15 seconds (02/20/15 1233) Overall Impression: Reassuring for gestational age (02/20/15 1233) Comments: n/a (02/18/15 1015) Hermilo Puckett MD PGY-3 Associated attestation - Yesenia Donahue MD - 02/20/2015 12:44 PM EDT I personally reviewed the FHR Tracing and agree with the Resident???s interpretation. Yesenia Donahue MD * Schuyler Steiner MD - 02/20/2015 7:43 AM EDT Obstetrical Interdisciplinary Antepartum Progress Note Patient ID: Martinez Richardson is a 29 y.o. at 35w1d gestation, now HD#32 , BFD #2 admitted for presumed placental abruption with an anterior placenta. Antepartum course significant for GDMA2 oninsulin, obesity, h/o CS x2, and h/o SAB and D&C x2. Now betamethasone and magnesium complete. 24 Hour Events - none Subjective: Martinez reports a PARR overnight that resolved spontaneously. She denies VB, lof overnight. Reports good FM. She reports in general her contractions are increasing in intensity, however, shehas not had any recently Review of Systems Denies sob, cp, n/v, leg pain. All systems are otherwise reviewed and are negative. Physical Exam Gen: NAD, calm CV: RRR, no m/r/g Resp: CTAB, unlabored GI: soft, NT/ND Last value Range last 24 hrs Temperature Temp: 36.9 ??C (98.4 ??F) Temp: [36.6 ??C (97.9 ??F)-36.9 ??C (98.4 ??F)] Heart Rate Heart Rate: 101 Heart Rate: [84-101] Blood Pressure BP: 113/69 mmHg BP: (113-122)/(69-75) Respiratory Rate Resp: 18 Resp: [16-18] SpO2 SpO2: 99 % SpO2: [99 %] Heart Rate Interpretation: NST reactive yesterday, repeat pending today Most Recent Ultrasound 02/06/15 32w6d EFW 2202g 79% BRIDGET 15.6 5.5 x 2 subchorionic hemorrhage at inferior portion of placenta. Cephalic, anterior placenta Results for MARTINEZ RICHARDSON ( ) as of 02/20/2015 07:43 02/19/2015 07:04 02/19/2015 10:32 02/19/2015 14:44 02/19/2015 19:27 02/20/2015 06:37 POC Glucose 99 141 151 124 85 Assessment & Plan: Martinez Richardson is a 29 y.o. at 35w1d gestation admitted for presumed placental abruption with an anterior placenta. Antepartum course significant for GDMA2 on insulin,obesity, h/o CS x2, and h/o SAB and D&C x2. Now betamethasone and magnesium complete. Placental Abruption: Bleeding and uterine irritability consistent with abruption - continue hospitalization to follow bleeding until resolved/bleed free x7 days minimum, patient will likely require hospitalization for duration of given bleeding pattern. ?? Steroid status: Betamethasone complete 01/21, magnesium complete for neuroprotection 01/28 ?? Delivery Indications: non reassuring status and maternal deterioration ?? Delivery Plan: Repeat section (history of LTCS x2). She desires BTL at the time of delivery (consented). ?? Scheduled c/s on 03/02/2015 and during a week day when full staff is present. C/s was originally scheduled for 03/06 when patient will be 37w1d however it was recently changed. Will investigate. ?? Consultations: neonatology ?? Keep active type/screen Well-Being: reassuring status. Cephalic. - NST once daily GDMA2. Increasing insulin needs this admission, Has had several fasting and postprandial elevationsand will need increases to PM NPH and meal-associated. ?? Goal glucose control of <100 fasting and 140 pp. ?? Current insulin regimen - NPH 24 u qAM and 22 u qPM; Novalog 22 U breakfast, 22 U lunch, 28 U dinner. Will increase novalog to 24 units with breakfast and lunch. ?? Every other day weights ?? Carb control diet ?? growth appropriate Constipation - scheduled Miralax and colace Disposition: Patient with ongoing bleeding throughout hospitalization, given continued bleeding, she will likely requirehospitalization for the remainder of her . Goal for the Day: continued inpatient surveillance for placental abruption, continue diabetes management Patient seen, examined, and the plan discussed with CALE Fox Attending. Zee Puckett MD PGY3 02/20/2015 Maternal Medicine Attending Note Patient: Martinez Richardson I performed a history and physical exam of the patient and discussed her management with Dr. Puckett. I reviewed Dr. Puckett's note and agree with the documented findings and plan of care. My evaluation is as below: 35w1d weeks EGA; Patient admitted with complicated by chronic abruption and GDM. LOS: 31 days Subjective: No complaints. Good movement. No contractions. Last value Range last 8 hrs Temperature Temp: 36.9 ??C (98.4 ??F) Temp: [36.9 ??C (98.4 ??F)] Heart Rate Heart Rate: 101 Heart Rate: [101] Blood Pressure BP: 113/69 mmHg BP: (113)/(69) Respiratory Rate Resp: 18 Resp: [18] SpO2 SpO2: 99 % SpO2: -- *Abdomen: Soft, non-tender, not distended *Uterus: Soft, Non-tender *Extremities: Non-tender; no edema *NST: See separate report. Impression: Stable abruption at 35w1d weeks EGA. Plan: ??? Continue modified bedrest with observation for reucrrent bleeding. ??? Increase breakfast and lunch meal associated insulin by 2units. ??? Continue daily NST. ? ? Active type & screen. ??? Deliver for non-reassuring maternal or status. Memo Steiner MD Maternal- Medicine * Sumaya Ontiveros MD - 02/19/2015 7:29 PM EDT 02/19/15 1248 Nonstress Test, Fetus A HR (beats/min) 145 Variability moderate (amplitude range 6 to 25 bpm) Accelerations present Decelerations variable (x2, Dr Frederick aware) Contraction Frequency (min) irreg Nonstress Test Interpretation Reactive, >32 weeks: two 15 bpm accelerations lasting 15 seconds Overall Impression Reassuring for gestational age NST Times NST Start Time 1016 NST Stop Time 1248 I personally reviewed and interpreted this NST. Sumaya Ontiveros MD * Schuyler Steiner MD - 02/19/2015 1:48 PM EDT Obstetrical Interdisciplinary Antepartum Progress Note Patient ID: Martinez Richardson is a 29 y.o. at 35w0d gestation, now HD#31 , BFD #1 admitted for presumed placental abruption with an anterior placenta. Antepartum course significant for GDMA2 oninsulin, obesity, h/o CS x2, and h/o SAB and D&C x2. Now betamethasone and magnesium complete. 24 Hour Events - none Subjective: Martinez reports a PARR overnight that resolved spontaneously. She denies VB, ctx, lof overnight. Reports good FM. Denies sob, cp, n/v, leg pain. Review of Systems Constitutional: Negative for fever, chills and fatigue. Respiratory: Negative for choking, chest tightness and shortness of breath. Gastrointestinal: Negative for nausea, vomiting, abdominal pain and diarrhea. Genitourinary: Negative for flank pain, vaginal bleeding, vaginal discharge and vaginal pain. : All systems are otherwise reviewed and are negative. Physical Exam Constitutional: She is oriented to person, place, and time. She appears well- developed and well-nourished. Cardiovascular: Normal rate and regular rhythm. Pulmonary/Chest: Effort normal and breath sounds normal. No respiratory distress. She has no wheezes. Abdominal: Soft. She exhibits no distension. There is no tenderness. Neurological: She is alert and oriented to person, place, and time. Skin: Skin is warm and dry. Psychiatric: She has a normal mood and affect. Last value Range last 24 hrs Temperature Temp: 36.7 ??C (98.1 ??F) Temp: [36.6 ??C (97.9 ??F)-36.7 ??C (98.1 ??F)] Heart Rate Heart Rate: 89 Heart Rate: [89] Blood Pressure BP: 118/63 mmHg BP: (118)/(63) Respiratory Rate Resp: 18 Resp: [18] SpO2 SpO2: 100 % SpO2: [100 %] Heart Rate Interpretation: NST reactive yesterday, repeat pending today Most Recent Ultrasound 02/06/15 32w6d EFW 2202g 79% BRIDGET 15.6 5.5 x 2 subchorionic hemorrhage at inferior portion of placenta. Cephalic, anterior placenta Results for MARTINEZ RICHARDSON ( ) as of 02/19/2015 17:47 Ref. Range 02/17/2015 19:02 02/18/2015 07:45 02/18/2015 10:05 02/18/2015 13:45 02/18/2015 19:13 02/19/2015 07:04 02/19/2015 10:32 02/19/2015 14:44 POC Glucose Latest Range: 60-199 mg/dL 150 95 111 115 102 99 141 151 Assessment & Plan: Martinez Richardson is a 29 y.o. at 35w0d gestation, now HD#31 , BFD #1 admitted for presumed placental abruption with an anterior placenta. Antepartum course significant for GDMA2 on insulin, obesity, h/o CS x2, and h/o SAB and D&C x2. Now betamethasone and magnesiumcomplete. Placental Abruption: Bleeding and uterine irritability consistent with abruption - continue hospitalization to follow bleeding until resolved/bleed free x7 days minimum, patient will likely require hospitalization for duration of given bleeding pattern. Steroid status: Betamethasone complete 01/21, magnesium complete for neuroprotection 01/28 Delivery Indications: non reassuring status and maternal deterioration Delivery Plan: Repeat section (history of LTCS x2). She desires BTL at the time of delivery (consented). Scheduled c/s for 37w1d and during a week day when full staff is present. Consultations: neonatology Keep active type/screen Well-Being: reassuring status. Cephalic. - NST once daily Additional issues: 1. GDMA2. Increasing insulin needs this admission, but good glucose control with current regimen, as above. Will continue to increase NPH and Novalog as appropriate for glucose control of <100 fasting and 140 pp. - Current insulin regimen - NPH 24 u qAM and 22 u qPM; Novalog 22 U breakfast, 22 U lunch, 28 U dinner. Has had several fasting and postprandial elevations and will need increases to PM NPH and meal-associated. - every other day weights - carb control diet - growth appropriate 2. Constipation - scheduled Miralax and colace Disposition: Patient with ongoing bleeding throughout hospitalization, given continued bleeding, she will likely requirehospitalization for the remainder of her . Goal for the Day: continued inpatient surveillance for placental abruption, continue diabetes management Patient seen, examined, and the plan discussed with Dr. Steiner, [facility] Attending. Vinicius Mack MD PGY4 02/19/2015 Maternal Medicine Attending Note Patient: Martinez Richardson I performed a history and physical exam of the patient and discussed her management with Dr. Mack.I reviewed Dr. Mack's note and agree with the documented findings and plan of care. My evaluation is as below: 35w0d weeks EGA; Patient admitted with complicated by chronic abruption and GDM. LOS: 30 days Subjective: No complaints. Good movement. No contractions. Last value Range last 8 hrs Temperature Temp: 36.9 ??C (98.4 ??F) Temp: [36.9 ??C (98.4 ??F)] Heart Rate Heart Rate: 101 Heart Rate: [101] Blood Pressure BP: 113/69 mmHg BP: (113)/(69) Respiratory Rate Resp: 18 Resp: [18] SpO2 SpO2: 99 % SpO2: -- *Abdomen: Soft, non-tender, not distended *Uterus: Soft, Non-tender *Extremities: Non-tender; no edema *NST: See separate report. Impression: Stable abruption at 35w0d weeks EGA. Plan: ??? Continue modified bedrest with observation for reucrrent bleeding. ??? Continue daily NST. ? ? Active type & screen. ??? Deliver for non-reassuring maternal or status. ??? Repeat and BTL scheduled at 37wk1d, Friday, 06 March 2015. Memo Steiner MD Maternal- Medicine * Schuyler Steiner MD - 02/18/2015 1:30 PM EDT NST Note Nonstress Test, Fetus A NST Start Time: 1015 (02/18/15 1015) HR (beats/min): 145 (02/18/15 1015) Variability: moderate (amplitude range 6 to 25 bpm) (02/18/15 1015) Accelerations: present (02/18/15 1015) Decelerations: none (02/18/15 1015) Contraction Frequency (min): irritability (02/18/15 1015) Nonstress Test Interpretation: Reactive, >32 weeks: two 15 bpm accelerations lasting 15 seconds (02/18/15 1015) Overall Impression: Reassuring for gestational age (02/18/15 1015) Comments: n/a (02/18/15 1015) Tiffanie Gonzalez MD, PGY3 02/18/2015 I personally reviewed and interpreted this NST. Schuyler Steiner MD * Schuyler Steiner MD - 02/18/2015 8:46 AM EDT Obstetrical Interdisciplinary Antepartum Progress Note Patient ID: 29 y.o. female at 34w6d gestation, now HD#30 , bleed-free day #0 admitted for presumed placental abruption with an anterior placenta. otherwise complicated by GDMA2 on insulin, obesity, h/o CS x2, and h/o SAB and D&C x2. Now betamethasone and magnesium complete. 24 Hour Events - Small bright red bleeding episode overnight. Subjective: Martinez has no complaints this AM. She is keeping busy with work and is looking forward to her delivery date. She is feeling active movement and denies contractions or loss of fluid.Ambulating, voiding, eating, and having regular bowel movements. Review of Systems Constitutional: Negative for fever, chills and fatigue. Respiratory: Negative for choking, chest tightness and shortness of breath. Gastrointestinal: Negative for nausea, vomiting, abdominal pain and diarrhea. Genitourinary: Negative for flank pain, vaginal bleeding, vaginal discharge and vaginal pain. : All systems are otherwise reviewed and are negative. Physical Exam Constitutional: She is oriented to person, place, and time. She appears well- developed and well-nourished. Cardiovascular: Normal rate and regular rhythm. Pulmonary/Chest: Effort normal and breath sounds normal. No respiratory distress. She has no wheezes. Abdominal: Soft. She exhibits no distension. There is no tenderness. Neurological: She is alert and oriented to person, place, and time. Skin: Skin is warm and dry. Psychiatric: She has a normal mood and affect. Last value Range last 24 hrs Temperature Temp: 36.5 ??C (97.7 ??F) Temp: [36.4 ??C (97.5 ??F)-36.6 ??C (97.9 ??F)] Heart Rate Heart Rate: 99 Heart Rate: [77-99] Blood Pressure BP: 118/70 mmHg BP: (88-118)/(47-70) Respiratory Rate Resp: 18 Resp: [18] SpO2 SpO2: 93 % SpO2: [93 %-98 %] Heart Rate Interpretation: NST reactive yesterday, repeat pending today Most Recent Ultrasound 02/06/15 32w6d EFW 2202g 79% BRIDGET 15.6 5.5 x 2 subchorionic hemorrhage at inferior portion of placenta. Cephalic, anterior placenta 02/17/2015 08:38 02/17/2015 14:03 02/17/2015 19:02 02/18/2015 07:45 02/18/2015 10:05 POC Glucose 176 133 150 95 111 Assessment & Plan: 29 y.o. female at 34w6d gestation, HD#30, bleed-free day #0 admittedfor presumed placental abruption. otherwise complicated by GDMA2 on insulin, obesity, h/oCS x2, and h/o SAB and D&C x2. Please see problem-based assessment/plan below Placental Abruption: Bleeding and uterine irritability consistent with abruption - continue hospitalization to follow bleeding until resolved/bleed free x7 days minimum, patient will likely require hospitalization for duration of given bleeding pattern. Steroid status: Betamethasone complete 01/21, magnesium complete for neuroprotection 01/28 Delivery Indications: non reassuring status and maternal deterioration Delivery Plan: Repeat section (history of LTCS x2). She desires BTL at the time of delivery (consented). Scheduled c/s for 37w0d and during a week day when full staff is present. Consultations: neonatology Keep active type/screen Well-Being: reassuring status. Cephalic. - NST once daily Additional issues: 1. GDMA2. Increasing insulin needs this admission, but good glucose control with current regimen, as above. Will continue to increase NPH and Novalog as appropriate for glucose control of <100 fasting and 140 pp. Has good control. - Current insulin regimen - NPH 24 u qAM and 22 u qPM; Novalog 22 U breakfast, 22 U lunch, 28 U dinner. - every other day weights - carb control diet - growth appropriate 2. Constipation - scheduled Miralax and colace Disposition: Patient with ongoing bleeding throughout hospitalization, given continued bleeding, she will likely requirehospitalization for the remainder of her . Goal for the Day: continued inpatient surveillance for placental abruption, continue diabetes management This note was written by Dr. Ailyn Brand and myself and completed during interdisciplinary rounds with MFM, charge attendant and bedside RN. Tiffanie Gonzalez MD PGY3 02/18/2015 Maternal Medicine Attending Note Patient: Martinez Richardson I performed a history and physical exam of the patient and discussed her management with Dr. Gonzalez. I reviewed Dr. Gonzalez's note and agree with the documented findings and plan of care. My evaluation is as below: 34w6d weeks EGA; Patient admitted with complicated by chronic abruption/gestational diabetes. LOS: 29 days Subjective: No complaints. Good movement. No contractions. Last value Range last 8 hrs Temperature Temp: 36.5 ??C (97.7 ??F) Temp: [36.5 ??C (97.7 ??F)] Heart Rate Heart Rate: 99 Heart Rate: [99] Blood Pressure BP: 118/70 mmHg BP: (118)/(70) Respiratory Rate Resp: 18 Resp: -- SpO2 SpO2: 93 % SpO2: [93 %] *Abdomen: Soft, non-tender, not distended *Uterus: Soft, Non-tender *Extremities: Non-tender; no edema *NST: See separate report. Impression: Stable abruption at 34w6d weeks EGA. Plan: ??? Continue modified bedrest with observation for reucrrent bleeding. ??? Continue daily NST. ? ? Active type & screen. ??? Plan for delivery at 37 weeks. Memo Steiner MD Maternal- Medicine * Griselda Hampton MD - 02/17/2015 9:40 PM EDT 02/17/15 1210 Nonstress Test, Fetus A HR (beats/min) 135 Variability moderate (amplitude range 6 to 25 bpm) Accelerations present Decelerations variable Contraction Frequency (min) none Nonstress Test Interpretation Reactive <32 week: two 10 bpm accelerations lasting 10 seconds Overall Impression (!) Non-reassuring I personally reviewed and interpreted this NST. Griselda Hampton MD * Ailyn Brand MD - 02/17/2015 6:23 AM EDT Obstetrical Interdisciplinary Antepartum Progress Note Patient ID: 29 y.o. female at 34w5d gestation, now HD#27 , bleed-free day #2 admitted for presumed placental abruption with an anterior placenta. otherwise complicated by GDMA2 on insulin, obesity, h/o CS x2, and h/o SAB and D&C x2. Now betamethasone and magnesium complete. 24 Hour Events - No bleeding overnight. Subjective: Martinez has no complaints this AM. She is keeping busy with work and is looking forward to her delivery date. She is feeling active movement and denies contractions or loss of fluid.Ambulating, voiding, eating, and having regular bowel movements. Review of Systems Constitutional: Negative for fever, chills and fatigue. Respiratory: Negative for choking, chest tightness and shortness of breath. Gastrointestinal: Negative for nausea, vomiting, abdominal pain and diarrhea. Genitourinary: Negative for flank pain, vaginal bleeding, vaginal discharge and vaginal pain. : All systems are otherwise reviewed and are negative. Physical Exam Constitutional: She is oriented to person, place, and time. She appears well- developed and well-nourished. Cardiovascular: Normal rate and regular rhythm. Pulmonary/Chest: Effort normal and breath sounds normal. No respiratory distress. She has no wheezes. Abdominal: Soft. She exhibits no distension. There is no tenderness. Neurological: She is alert and oriented to person, place, and time. Skin: Skin is warm and dry. Psychiatric: She has a normal mood and affect. Last value Range last 24 hrs Temperature Temp: 36.5 ??C (97.7 ??F) Temp: [36.5 ??C (97.7 ??F)-37.1 ??C (98.8 ??F)] Heart Rate Heart Rate: 89 Heart Rate: [86-95] Blood Pressure BP: 112/67 mmHg BP: (101-120)/(62-67) Respiratory Rate Resp: 18 Resp: [18] SpO2 SpO2: 98 % SpO2: [98 %] Heart Rate Interpretation: NST reactive yesterday, repeat pending today Most Recent Ultrasound 02/06/15 32w6d EFW 2202g 79% BRIDGET 15.6 5.5 x 2 subchorionic hemorrhage at inferior portion of placenta. Cephalic, anterior placenta 02/16/2015 06:18 02/16/2015 09:07 02/16/2015 14:06 02/16/2015 19:01 POC Glucose 85 135 143 111 Assessment & Plan: 29 y.o. female at 34w5d gestation, HD#28, bleed-free day #3 admittedfor presumed placental abruption. otherwise complicated by GDMA2 on insulin, obesity, h/oCS x2, and h/o SAB and D&C x2. Please see problem-based assessment/plan below Placental Abruption: Bleeding and uterine irritability consistent with abruption - continue hospitalization to follow bleeding until resolved/bleed free x7 days minimum, patient will likely require hospitalization for duration of given bleeding pattern. Steroid status: Betamethasone complete 01/21, magnesium complete for neuroprotection 01/28 Delivery Indications: non reassuring status and maternal deterioration Delivery Plan: Repeat section (history of LTCS x2). She desires BTL at the time of delivery (consented). Scheduled c/s for 37w0d and during a week day when full staff is present. Consultations: neonatology Keep active type/screen Well-Being: reassuring status. Cephalic. - NST once daily Additional issues: 1. GDMA2. Increasing insulin needs this admission, but good glucose control with current regimen, as above. Will continue to increase NPH and Novalog as appropriate for glucose control of <100 fasting and 140 pp. Has good control. - Current insulin regimen - NPH 22 u qAM and 20 u qPM; Novalog 22 U breakfast, 22 U lunch, 28 U dinner. - every other day weights - carb control diet - growth appropriate 2. Constipation - scheduled Miralax and colace Disposition: Patient with ongoing bleeding throughout hospitalization, given continued bleeding, she will likely requirehospitalization for the remainder of her . Goal for the Day: continued inpatient surveillance for placental abruption, continue diabetes management Zee Puckett MD PGY3 02/17/2015 Addendum: Note was completed by Dr. Zee Puckett on 02/17/2015. It was not signed. I am signing on his behalf. Ailyn Brand MD Associated attestation - Vinicius Godinez MD - 02/22/2015 3:06 PM EDT I have seen and examined the patient, providing negrete components as outlined below. I have reviewed the resident???s above note; my evaluation of the patient is below: * Zia Gan MD - 02/16/2015 3:18 PM EDT Attending Progress Note Zia Gan MD I reviewed the patient at rounds with the team. I agree with the documented findings and plan of care of Dr. Puckett, the resident, except as noted below. My evaluation is as below: Subjective: No complaints, no new bleeding episodes this am or yesterday. Good FM, no contractions or leaking. Objective: ??? Temp: [36.6 ??C (97.9 ??F)-37.1 ??C (98.8 ??F)] ??? Heart Rate: [79-95] ??? Resp: [16-18] ??? BP: (82-120)/(43-76) ??? SpO2: [98 %-99 %] ??? Abdomen: Soft, non-tender, not distended ??? Uterus: Soft, Non-tender ??? Extremities: trace edema ??? NST: pending for today, please see separate documentation. Impression & Plan 34w4d IUP with an ERIC of 03/26/2015, set as working upon episode creation, admitted with chronic abruption with almost daily bleeding and subchorionic hemorrhage on US. She remains at risk for acute extension of her abruption. We will continue IP hospitalization. Delivery for significant bleeding. Wediscussed her at team meeting. Given her chronic abruption, we will deliver at 37 weeks. This needsto be scheduled. Delivery Indications: progressive labor, non reassuring status and significant hemorrhage Zia Gan MD 02/16/2015 * Rita Bennett MD - 02/16/2015 3:12 PM EDT NST Nonstress Test, Fetus A NST Start Time: 1031 (02/16/15 1114) HR (beats/min): 140 (02/16/15 1114) Variability: moderate (amplitude range 6 to 25 bpm) (02/16/15 1114) Accelerations: present (02/16/15 1114) Decelerations: none (02/16/15 1114) Contraction Frequency (min): 1x (02/16/15 1114) Nonstress Test Interpretation: Reactive, >32 weeks: two 15 bpm accelerations lasting 15 seconds (02/16/15 1114) Overall Impression: Reassuring for gestational age (02/16/15 1114) Comments: variable at 1124 to a alexey of 90bmp for ~20 seconds associated with ? ctx (02/13/15 1148) Vinicius Mack MD PGY4 02/16/2015 I personally reveiwed the NST and agree with Dr. Mack' documentation. * Zia Gan MD - 02/16/2015 8:28 AM EDT Obstetrical Interdisciplinary Antepartum Progress Note Patient ID: 29 y.o. female at 34w4d gestation, now HD#27 , bleed-free day #2 admitted for presumed placental abruption with an anterior placenta. otherwise complicated by GDMA2 on insulin, obesity, h/o CS x2, and h/o SAB and D&C x2. Now betamethasone and magnesium complete. 24 Hour Events - No bleeding overnight. Subjective: Martinez has no complaints this AM. She is keeping busy with work and is looking forward to her delivery date. She is feeling active movement and denies contractions or loss of fluid.Ambulating, voiding, eating, and having regular bowel movements. Review of Systems Constitutional: Negative for fever, chills and fatigue. Respiratory: Negative for choking, chest tightness and shortness of breath. Gastrointestinal: Negative for nausea, vomiting, abdominal pain and diarrhea. Genitourinary: Negative for flank pain, vaginal bleeding, vaginal discharge and vaginal pain. : All systems are otherwise reviewed and are negative. Physical Exam Constitutional: She is oriented to person, place, and time. She appears well- developed and well-nourished. Cardiovascular: Normal rate and regular rhythm. Pulmonary/Chest: Effort normal and breath sounds normal. No respiratory distress. She has no wheezes. Abdominal: Soft. She exhibits no distension. There is no tenderness. Neurological: She is alert and oriented to person, place, and time. Skin: Skin is warm and dry. Psychiatric: She has a normal mood and affect. Last value Range last 24 hrs Temperature Temp: 36.7 ??C (98.1 ??F) Temp: [36.5 ??C (97.7 ??F)-37 ??C (98.6 ??F)] Heart Rate Heart Rate: 88 Heart Rate: [79-102] Blood Pressure BP: 102/61 mmHg BP: (82-113)/(43-76) Respiratory Rate Resp: 16 Resp: [16-18] SpO2 SpO2: 99 % SpO2: [98 %-99 %] Heart Rate Interpretation: NST reactive yesterday, repeat pending today Most Recent Ultrasound 02/06/15 32w6d EFW 2202g 79% BRIDGET 15.6 5.5 x 2 subchorionic hemorrhage at inferior portion of placenta. Cephalic, anterior placenta Results for MARTINEZ RICHARDSON ( ) as of 02/16/2015 08:29 02/15/2015 06:21 02/15/2015 09:19 02/15/2015 14:15 02/15/2015 19:07 02/16/2015 06:18 POC Glucose 91 136 138 129 85 Assessment & Plan: 29 y.o. female at 34w4d gestation, HD#27, bleed-free day #2 admittedfor presumed placental abruption. otherwise complicated by GDMA2 on insulin, obesity, h/oCS x2, and h/o SAB and D&C x2. Please see problem-based assessment/plan below Placental Abruption: Bleeding and uterine irritability consistent with abruption - continue hospitalization to follow bleeding until resolved/bleed free x7 days minimum, patient will likely require hospitalization for duration of given bleeding pattern. Steroid status: Betamethasone complete 01/21, magnesium complete for neuroprotection 01/28 Delivery Indications: non reassuring status and maternal deterioration Delivery Plan: Repeat section (history of LTCS x2). She desires BTL at the time of delivery (consented). Scheduled c/s for 37w0d and during a week day when full staff is present. Will schedule today. Consultations: neonatology Keep active type/screen Well-Being: reassuring status. Cephalic. - NST once daily Additional issues: 1. GDMA2. Increasing insulin needs this admission, but good glucose control with current regimen, as above. Will continue to increase NPH and Novalog as appropriate for glucose control of <100 fasting and 140 pp. Fasting elevated this am. - Current insulin regimen - NPH 22 u qAM and 20 u qPM; Novalog 22 U breakfast, 22 U lunch, 28 U dinner. - every other day weights - carb control diet - growth appropriate 2. Constipation - scheduled Miralax and colace Disposition: Patient with ongoing bleeding throughout hospitalization, given continued bleeding, she will likely requirehospitalization for the remainder of her . Goal for the Day: continued inpatient surveillance for placental abruption, continue diabetes management Zee Puckett MD PGY3 02/16/2015 I reviewed the patient with Dr. Puckett, please refer to my separate note for the details of my evaluation. I agree with the above assessment and plan. * Genesis Dukes - 02/15/2015 3:32 PM EDT Nutrition Services - Follow-up Note Martinez Richardson : 1985 AGE: 29 y.o. Patient Active Problem List Diagnosis Date Noted ??? Hospital-GDMA2 on insulin ??? Hospital-Previous delivery affecting 01/30/2015 ??? Hospital- with third trimester bleeding, antepartum 01/30/2015 ??? Supervision of high risk in second trimester 09/29/2014 ??? Gestational diabetes 09/29/2014 Reason for Nutrition Intervention: Follow-up Diet Order: Gestational CHO Appetite: good Food allergies: NKFA Chewing/Swallowing difficulty: none Height: 170.2 cm Weight: 98.9 kg Body mass index is 34.14 kg/(m^2). Vitamins/Minerals: Vitamin, Tums noted Assessment: Patient continues to eat well and order from room service without difficulty. No questions or concerns at this time. Her only request was to change her afternoon snack. Will update for tomorrow. Nutrition Plan: Continue current diet. Continue snacks. Monitor weight. Support and encouragement provided. Nutrition services to follow weekly thru hospital course unless consulted in the interim. Genesis Dukes, DT * Griselda Hampton MD - 02/15/2015 1:20 PM EDT NST Nonstress Test, Fetus A NST Start Time: 0921 (02/15/15 0950) HR (beats/min): 145 (02/15/15 0950) Variability: moderate (amplitude range 6 to 25 bpm) (02/15/15 0950) Accelerations: present (02/15/15 0950) Decelerations: none (02/15/15 0950) Contraction Frequency (min): none (02/15/15 0950) Nonstress Test Interpretation: Reactive, >32 weeks: two 15 bpm accelerations lasting 15 seconds (02/15/15 0950) Overall Impression: Reassuring for gestational age (02/15/15 0950) Comments: variable at 1124 to a alexey of 90bmp for ~20 seconds associated with ? ctx (02/13/15 1148) Vinicius Mack MD PGY4 02/15/2015 I personally reviewed the FHR Tracing and agree with the Resident???s interpretation. Griselda Hampton MD * Zia Gan MD - 02/15/2015 10:09 AM EDT Attending Progress Note Zia Gan MD I reviewed the patient at rounds with the team. I agree with the documented findings and plan of care of Dr. Puckett, the resident, except as noted below. My evaluation is as below: Subjective: Had bright red bleeding again last night that slowly resolved, still only small amounts. Good FM, no contractions or leaking. Have regular BM, no rpbolems with urination. Objective: ??? Temp: [36.6 ??C (97.9 ??F)-36.8 ??C (98.3 ??F)] ??? Heart Rate: [88-96] ??? Resp: [18-20] ??? BP: (107-116)/(67-75) ??? SpO2: [96 %-100 %] ??? Abdomen: Soft, non-tender, not distended ??? Uterus: Soft, Non-tender ??? Extremities: trace edema ??? NST: pending for today, please see separate documentation. FSBS after dinner elevated to 146 Impression & Plan 34w3d IUP with an ERIC of 03/26/2015, Set as working upon episode creation, admitted with chronic abruption in the setting of 2 prior c/s and D&C. She continues to have almost daily bleeding and hassubchorionic hematomas on US. She remains at high risk for massive hemorrhage. We will delivery forsignificant bleeding by c/s, otherwise probable c/s at 37 weeks. Increase pre-dinner insulin by 2 units Zia Gan MD 02/15/2015 * Zia Gan MD - 02/15/2015 6:44 AM EDT Obstetrical Interdisciplinary Antepartum Progress Note Patient ID: 29 y.o. female at 34w3d gestation, now HD#26 , bleed-free day #1 admitted for presumed placental abruption with an anterior placenta. otherwise complicated by GDMA2 on insulin, obesity, h/o CS x2, and h/o SAB and D&C x2. Now betamethasone and magnesium complete. 24 Hour Events - episode of BRB last evening. Bleeding resolved. Subjective: Martinez has no complaints this AM. Had a small amount of bleeding yesterday evening, no more than usual amount of bleeding. She is feeling active movement and denies contractions or loss of fluid. Review of Systems Constitutional: Negative for fever, chills and fatigue. Respiratory: Negative for choking, chest tightness and shortness of breath. Gastrointestinal: Negative for nausea, vomiting, abdominal pain and diarrhea. Genitourinary: Negative for flank pain, vaginal bleeding, vaginal discharge and vaginal pain. : All systems are otherwise reviewed and are negative. Physical Exam Constitutional: She is oriented to person, place, and time. She appears well- developed and well-nourished. Cardiovascular: Normal rate and regular rhythm. Pulmonary/Chest: Effort normal and breath sounds normal. No respiratory distress. She has no wheezes. Abdominal: Soft. She exhibits no distension. There is no tenderness. Neurological: She is alert and oriented to person, place, and time. Skin: Skin is warm and dry. Psychiatric: She has a normal mood and affect. Last value Range last 24 hrs Temperature Temp: 36.8 ??C (98.3 ??F) Temp: [36.6 ??C (97.9 ??F)-36.8 ??C (98.3 ??F)] Heart Rate Heart Rate: 88 Heart Rate: [88-96] Blood Pressure BP: 116/69 mmHg BP: (107-116)/(67-75) Respiratory Rate Resp: 18 Resp: [18-20] SpO2 SpO2: 100 % SpO2: [96 %-100 %] Heart Rate Interpretation: NST reactive yesterday, repeat pending today Most Recent Ultrasound 02/06/15 32w6d EFW 2202g 79% BRIDGET 15.6 5.5 x 2 subchorionic hemorrhage at inferior portion of placenta. Cephalic, anterior placenta 02/14/2015 07:03 02/14/2015 10:03 02/14/2015 13:10 02/14/2015 19:20 02/15/2015 06:21 POC Glucose 89 99 134 147 91 Assessment & Plan: 29 y.o. female at 34w3d gestation, HD#26, bleed-free day #1 admittedfor presumed placental abruption. otherwise complicated by GDMA2 on insulin, obesity, h/oCS x2, and h/o SAB and D&C x2. Please see problem-based assessment/plan below Placental Abruption: Bleeding and uterine irritability consistent with abruption - continue hospitalization to follow bleeding until resolved/bleed free x7 days minimum, patient will likely require hospitalization for duration of given bleeding pattern. Steroid status: Betamethasone complete 01/21, magnesium complete for neuroprotection 01/28 Delivery Indications: non reassuring status and maternal deterioration Delivery Plan: Repeat section (history of LTCS x2). She desires BTL at the time of delivery (consented) Consultations: neonatology Keep active type/screen Well-Being: reassuring status. Cephalic. - NST once daily Additional issues: 1. GDMA2. Increasing insulin needs this admission, but good glucose control with current regimen, as above. Will continue to increase NPH and Novalog as appropriate for glucose control of <100 fasting and 140 pp. Fasting elevated this am. - Current insulin regimen - NPH 22 u qAM and 20 u qPM; Novalog 22 U breakfast, 22 U lunch, 26 U dinner. Will increase dinner associated Novalog to 28 units. - every other day weights - carb control diet - growth appropriate 2. Constipation - scheduled Miralax and colace Disposition: Patient with ongoing bleeding throughout hospitalization, given continued bleeding, she will likely requirehospitalization for the remainder of her . Goal for the Day: continued inpatient surveillance for placental abruption, continue diabetes management Zee Puckett MD PGY3 02/15/2015 I reviewed the patient with Dr. Puckett, please refer to my separate note for the details of my evaluation. I agree with the above assessment and plan. * Nadya Alexander RN - 02/14/2015 10:50 PM EDT In for bedside report. Pt reported small amount of bright red blood on TP after wiping and dime size spot on underwear. Put on EFM and Dr. Ontiveros aware. Pt denies pain or ctx. No LOF. * Sumaya Ontiveros MD - 02/14/2015 5:46 PM EDT Antepartum NST Nonstress Test, Fetus A NST Start Time: 0944 (02/14/15 174) HR (beats/min): 145 (02/14/15 1744) Variability: moderate (amplitude range 6 to 25 bpm) (02/14/15 174) Accelerations: present (02/14/15 174) Decelerations: none (02/14/15 174) Contraction Frequency (min): None (02/14/15 174) Nonstress Test Interpretation: Reactive, >32 weeks: two 15 bpm accelerations lasting 15 seconds (02/14/15 1744) Overall Impression: Reassuring for gestational age (02/14/15 174) Comments: Hermilo Puckett MD PGY-3 I personally reviewed and interpreted this NST. Sumaya Ontiveros MD * Belen Williamson - 02/14/2015 3:43 PM EDT Geek [employer] Agent Encounter Note Patient Name: Martinez Richardson : [id number] MR#: [id number] Admit Date: 01/20/2015 4:44 PM Hospital Day 26 days Narrative: Extended follow-up visit with pt. Assessment: Martinez was warmly welcoming of visit, reporting that her grandmother and great aunt had just left after a nice visit. Martinez was reflective on her ongoing experience of prolonged BP stay and its impact on both her and her family. She noted feeling more hopeful and comfortable being here, after going through a difficult emotional time a couple of weeks ago. Martinez spoke lovingly about her three older children, including her oldest, an adopted 11 yo son named Jarred. Martinez also reflected on her hopes for her new baby girl, Ingrid. Martinez noted that she andher family are active members of [facility] in [place], [place]. Martinez noted her deep appreciation for the care and support she has been receiving from the OB and BP teams. Intervention and Outcome: Spiritual and emotional support, through conversation and reflection with Martinez. Affirmation of her hopes for herself and her family through this unexpected time of complications and hospitalization. Wished blessing of peace for Martinez and her family. She offered her appreciation for thevisit and support and affirmed her openness/desire for follow-up handling tech visit. Follow-up: Follow-up handling tech visit with pt, for offer of spiritual and emotional support. Time in Direct Care: 35 minutes Belen Williamson 02/15/2015 * Zia Gan MD - 02/14/2015 7:11 AM EDT Obstetrical Interdisciplinary Antepartum Progress Note Patient ID: 29 y.o. female at 34w2d gestation, now HD#25 , bleed-free day #2 admitted for presumed placental abruption with an anterior placenta. otherwise complicated by GDMA2 on insulin, obesity, h/o CS x2, and h/o SAB and D&C x2. Now betamethasone and magnesium complete. 24 Hour Events - No further bleeding Subjective: The patient has no complaints this morning, she has not yet noted any bleeding today orovernight. She is feeling active movement and denies contractions or loss of fluid. Review of Systems Constitutional: Negative for fever, chills and fatigue. Respiratory: Negative for choking, chest tightness and shortness of breath. Gastrointestinal: Negative for nausea, vomiting, abdominal pain and diarrhea. Genitourinary: Negative for flank pain, vaginal bleeding, vaginal discharge and vaginal pain. : All systems are otherwise reviewed and are negative. Physical Exam Constitutional: She is oriented to person, place, and time. She appears well- developed and well-nourished. Cardiovascular: Normal rate and regular rhythm. Pulmonary/Chest: Effort normal and breath sounds normal. No respiratory distress. She has no wheezes. Abdominal: Soft. She exhibits no distension. There is no tenderness. Neurological: She is alert and oriented to person, place, and time. Skin: Skin is warm and dry. Psychiatric: She has a normal mood and affect. Last value Range last 24 hrs Temperature Temp: 36.7 ??C (98.1 ??F) Temp: [36.7 ??C (98.1 ??F)] Heart Rate Heart Rate: 90 Heart Rate: [87-98] Blood Pressure BP: 102/81 mmHg BP: (102-138)/(68-83) Respiratory Rate Resp: 18 Resp: [18] SpO2 SpO2: 99 % SpO2: [98 %-99 %] Heart Rate Interpretation: NST reactive yesterday, repeat pending today Most Recent Ultrasound 02/06/15 32w6d EFW 2202g 79% BRIDGET 15.6 5.5 x 2 subchorionic hemorrhage at inferior portion of placenta. Cephalic, anterior placenta Results for MARTINEZ RICHARDSON ( ) as of 02/14/2015 07:11 02/13/2015 08:19 02/13/2015 10:07 02/13/2015 13:12 02/13/2015 19:16 POC Glucose 110 128 123 125 Assessment & Plan: 29 y.o. female at 34w2d gestation, HD#25, bleed-free day #2 admittedfor presumed placental abruption. otherwise complicated by GDMA2 on insulin, obesity, h/oCS x2, and h/o SAB and D&C x2. Please see problem-based assessment/plan below Placental Abruption: Bleeding and uterine irritability consistent with abruption - continue hospitalization to follow bleeding until resolved/bleed free x7 days minimum, patient will likely require hospitalization for duration of given bleeding pattern. Steroid status: Betamethasone complete 01/21, magnesium complete for neuroprotection 01/28 Delivery Indications: non reassuring status and maternal deterioration Delivery Plan: Repeat section (history of LTCS x2). She desires BTL at the time of delivery (consented) Consultations: neonatology Keep active type/screen Well-Being: reassuring status. Cephalic. - NST once daily Additional issues: 1. GDMA2. Increasing insulin needs this admission, but good glucose control with current regimen, as above. Will continue to increase NPH and Novalog as appropriate for glucose control of <100 fasting and 140 pp. Fasting elevated this am. - Current insulin regimen - NPH 22 u qAM and 20 u qPM; Novalog 22 U breakfast, 22 U lunch, 26 U dinner. - every other day weights - carb control diet - growth appropriate 2. Constipation - scheduled Miralax and colace Disposition: Patient with ongoing bleeding throughout hospitalization, given continued bleeding, she will likely requirehospitalization for the remainder of her . Goal for the Day: continued inpatient surveillance for placental abruption, continue diabetes management This note was written by Annabel Joseph MD on IDR. Zee Puckett MD PGY3 02/14/2015 MFM Attending Note I saw the patient on interdisciplinary rounds with the team and participated in her review of systems, HPI and physical exam, I also reviewed her chart. I agree with the assessment and plan above. We discussed today delivery timing. Given the chronic abruption with subchorionic hemorrhage, with bleeding every 2-3 days, delivery at 37 weeks seems reasonable, unless she has significant hemorrhage prior. I will discuss this with [facility] MFM team. FSBS improved today, no need for treatment change. Signed Zia Gan MD 02/14/2015 * Vinicius Mack MD - 02/13/2015 12:51 PM EDT NST Nonstress Test, Fetus A NST Start Time: 1109 (02/13/15 1148) HR (beats/min): 145 (02/13/15 1148) Variability: moderate (amplitude range 6 to 25 bpm) (02/13/15 114) Accelerations: present (02/13/151147) Decelerations: variable;other (see comments) (02/13/151147) Contraction Frequency (min): occasional (02/13/151147) Nonstress Test Interpretation: Reactive, >32 weeks: two 15 bpm accelerations lasting 15 seconds (02/13/15 114) Overall Impression: Reassuring for gestational age (02/13/151147) Comments: variable at 1124 to a alexey of 90bmp for ~20 seconds associated with ? ctx (02/13/151147) Vinicius Mack MD PGY4 02/13/2015 Associated attestation - Yesenia Donahue MD - 02/13/2015 3:15 PM EDT I personally reviewed the FHR Tracing and agree with the Resident???s interpretation. Yesenia Donahue MD * Zia Gan MD - 02/13/2015 6:30 AM EDT Obstetrical Interdisciplinary Antepartum Progress Note Patient ID: 29 y.o. female at 34w1d gestation, now HD#24 , bleed-free day #1 admitted for presumed placental abruption with an anterior placenta. otherwise complicated by GDMA2 on insulin, obesity, h/o CS x2, and h/o SAB and D&C x2. Now betamethasone and magnesium complete. 24 Hour Events - small amount of BRB yesterday afternoon - elevated fasting FS this am (110), but otherwise wnl Subjective: The patient has no complaints this morning, she has not yet noted any bleeding today orovernight. She is feeling active movement and denies contractions or loss of fluid. Reports some constipation despite Miralax and docusate, but had a small BM yesterday which helped. Review of Systems Constitutional: Negative for fever, chills and fatigue. Respiratory: Negative for choking, chest tightness and shortness of breath. Gastrointestinal: Negative for nausea, vomiting, abdominal pain and diarrhea. Genitourinary: Negative for flank pain, vaginal bleeding, vaginal discharge and vaginal pain. : All systems are otherwise reviewed and are negative. Physical Exam Constitutional: She is oriented to person, place, and time. She appears well- developed and well-nourished. Cardiovascular: Normal rate and regular rhythm. Pulmonary/Chest: Effort normal and breath sounds normal. No respiratory distress. She has no wheezes. Abdominal: Soft. She exhibits no distension. There is no tenderness. Neurological: She is alert and oriented to person, place, and time. Skin: Skin is warm and dry. Psychiatric: She has a normal mood and affect. Last value Range last 24 hrs Temperature Temp: 36.7 ??C (98.1 ??F) Temp: [36.7 ??C (98.1 ??F)] Heart Rate Heart Rate: 89 Heart Rate: [89-98] Blood Pressure BP: 124/71 mmHg BP: (92-130)/(67-87) Respiratory Rate Resp: 18 Resp: [18] SpO2 SpO2: 99 % SpO2: [99 %] Heart Rate Interpretation: NST reactive yesterday, repeat pending today Most Recent Ultrasound 02/06/15 32w6d EFW 2202g 79% BRIDGET 15.6 5.5 x 2 subchorionic hemorrhage at inferior portion of placenta. Cephalic, anterior placenta Results for MARTINEZ RICHARDSON ( ) as of 02/13/2015 06:32 02/12/2015 08:06 02/12/2015 09:48 02/12/2015 14:11 02/12/2015 19:46 POC Glucose 95 115 115 104 Assessment & Plan: 29 y.o. female at 34w1d gestation, HD#24, bleed-free day #1 admittedfor presumed placental abruption. otherwise complicated by GDMA2 on insulin, obesity, h/oCS x2, and h/o SAB and D&C x2. Please see problem-based assessment/plan below Placental Abruption: Bleeding and uterine irritability consistent with abruption - continue hospitalization to follow bleeding until resolved/bleed free x7 days minimum, patient will likely require hospitalization for duration of given bleeding pattern. Steroid status: Betamethasone complete 01/21, magnesium complete for neuroprotection 01/28 Delivery Indications: non reassuring status and maternal deterioration Delivery Plan: Repeat section (history of LTCS x2). She desires BTL at the time of delivery (consented) Consultations: neonatology Keep active type/screen Well-Being: reassuring status. Cephalic. - NST once daily Additional issues: 1. GDMA2. Increasing insulin needs this admission, but good glucose control with current regimen, as above. Will continue to increase NPH and Novalog as appropriate for glucose control of <100 fasting and 140 pp. Fasting elevated this am. - Current insulin regimen - NPH 22 u qAM and 20 u qPM; Novalog 22 U breakfast, 22 U lunch, 26 U dinner. - every other day weights - carb control diet - growth appropriate 2. Constipation - scheduled Miralax and colace Disposition: Patient with ongoing bleeding throughout hospitalization, given continued bleeding, she will likely requirehospitalization for the remainder of her . Goal for the Day: continued inpatient surveillance for placental abruption, continue diabetes management Zee Puckett MD PGY3 MFM Attending Note I saw the patient on interdisciplinary rounds with the team and participated in her review of systems, HPI and physical exam, I also reviewed her chart. I agree with the assessment and plan above. She remains at risk for acute extension of her abruption. We will continue IP hospitalization. Delivery for significant bleeding. We have no explanation for her elevated Fasting blood sugar today. We will observe and not make anyinsulin changes at this point. Signed Zia Gan MD 02/13/2015 * Lorri Valles MD - 02/12/2015 4:37 PM EDT Antepartum NST Nonstress Test, Fetus A NST Start Time: 1420 (02/12/15 1635) HR (beats/min): 145 (02/12/15 1635) Variability: moderate (amplitude range 6 to 25 bpm) (02/12/15 1635) Accelerations: present (02/12/15 1635) Decelerations: none (02/12/15 1635) Contraction Frequency (min): none (02/12/15 1635) Nonstress Test Interpretation: Reactive, >32 weeks: two 15 bpm accelerations lasting 15 seconds (02/12/15 1635) Overall Impression: Reassuring for gestational age (02/12/15 1635) Comments: Fetus very active at 1503 to 1521 (02/12/15 1635) Hermilo Puckett MD PGY-3 I personally reviewed the FHR Tracing and agree with Dr. Puckett???s interpretation. Lorri Valles MD * Janna Oliva RN - 02/12/2015 1:38 PM EDT 1200 Denies CTX, VB, LOF. Reports FM. 1315 Pt moved to rm 4. 1415 Pt reports scant bleeding in toilet with straining for BM. MD Puckett notified. Pt placed on EFM 1638 EFM D/C per MD Puckett who has viewed tracing. * Lorri Valles MD - 02/12/2015 7:03 AM EDT Obstetrical Interdisciplinary Antepartum Progress Note Patient ID: 29 y.o. female at 34w0d gestation, now HD#23 , bleed-free day #2 admitted for presumed placental abruption with an anterior placenta. otherwise complicated by GDMA2 on insulin, obesity, h/o CS x2, and h/o SAB and D&C x2. Now betamethasone and magnesium complete. 24 Hour Events - none Subjective: The patient has no complaints this morning, she has not yet noted any bleeding today orovernight. She is feeling active movement and denies contractions or loss of fluid. Review of Systems Constitutional: Negative for fever, chills and fatigue. Respiratory: Negative for choking, chest tightness and shortness of breath. Gastrointestinal: Negative for nausea, vomiting, abdominal pain and diarrhea. Genitourinary: Negative for flank pain, vaginal bleeding, vaginal discharge and vaginal pain. : All systems are otherwise reviewed and are negative. Physical Exam Constitutional: She is oriented to person, place, and time. She appears well- developed and well-nourished. Cardiovascular: Normal rate and regular rhythm. Pulmonary/Chest: Effort normal and breath sounds normal. No respiratory distress. She has no wheezes. Abdominal: Soft. She exhibits no distension. There is no tenderness. Neurological: She is alert and oriented to person, place, and time. Skin: Skin is warm and dry. Psychiatric: She has a normal mood and affect. Last value Range last 24 hrs Temperature Temp: 36.7 ??C (98.1 ??F) Temp: [36.5 ??C (97.7 ??F)-36.7 ??C (98.1 ??F)] Heart Rate Heart Rate: 91 Heart Rate: [89-91] Blood Pressure BP: 108/70 mmHg BP: (108-110)/(68-70) Respiratory Rate Resp: 18 Resp: [18] SpO2 SpO2: 99 % SpO2: [99 %] Heart Rate Interpretation: NST reactive yesterday, repeat pending today Most Recent Ultrasound 02/06/15 32w6d EFW 2202g 79% BRIDGET 15.6 5.5 x 2 subchorionic hemorrhage at inferior portion of placenta. Cephalic, anterior placenta 02/11/2015 06:33 02/11/2015 09:42 02/11/2015 19:47 POC Glucose 90 153 115 Assessment & Plan: 29 y.o. female at 34w0d gestation, HD#23, bleed-free day #2 admittedfor presumed placental abruption. otherwise complicated by GDMA2 on insulin, obesity, h/oCS x2, and h/o SAB and D&C x2. Please see problem-based assessment/plan below Placental Abruption: Bleeding and uterine irritability consistent with abruption - continue hospitalization to follow bleeding until resolved/bleed free x7 days minimum, patient will likely require hospitalization for duration of given bleeding pattern. Steroid status: Betamethasone complete 01/21, magnesium complete for neuroprotection 01/28 Delivery Indications: non reassuring status and maternal deterioration Delivery Plan: Repeat section (history of LTCS x2). She desires BTL at the time of delivery (consented) Consultations: neonatology Keep active type/screen Well-Being: reassuring status. Cephalic. - NST once daily Additional issues: GDMA2. Increasing insulin needs this admission, but good glucose control with current regimen, as above. Will continue to increase NPH and Novalog as appropriate for glucose control of <100 fasting and 140 pp. - Current insulin regimen - NPH 22 u qAM and 20 u qPM; Novalog 22 U breakfast, 22 U lunch, 26 U dinner. - every other day weights - carb control diet - growth appropriate Disposition: Patient with ongoing bleeding throughout hospitalization, given continued bleeding, she will likely requirehospitalization for the remainder of her . Goal for the Day: continued inpatient surveillance for placental abruption, continue diabetes management Zee Puckett MD PGY3 MFM attending note I saw and evaluated the patient. I agree with the findings and the plan of care as documented in Dr. Puckett's note. The patient reports feeling well. She denies contractions, leaking of fluid or bleeding. She reports good activity. My physical exam confirms and/or revises Dr. Puckett's exam. Temp: [36.7 ??C (98.1 ??F)] Heart Rate: [89-91] Resp: [18] BP: (92-108)/(67-70) SpO2: -- Nonstress test: Documented elsewhere Abdomen: gravid, soft, nontender Ext: no edema Impression: 34.0 weeks with ongoing third trimester bleeding from chronic abruption. Remains at risk for acute extension of the abruption and need for emergent delivery Previous , plans repeat GDMA2 in good control Desires sterilization Plan: Continue hospitalization for and maternal safety and ongoing assessment regarding need for delivery. Nonstress test Insulin Lorri Valles MD * Griselda Avila Jaguar - 02/11/2015 12:01 PM EDT ANTEPARTUM NST Nonstress Test, Fetus A NST Start Time: 0948 (02/11/15 1200) HR (beats/min): 150 (02/11/15 1200) Variability: moderate (amplitude range 6 to 25 bpm) (02/11/15 1200) Accelerations: present (02/11/15 1200) Decelerations: none (02/11/15 1200) Contraction Frequency (min): none (02/11/15 1200) Nonstress Test Interpretation: Reactive, >32 weeks: two 15 bpm accelerations lasting 15 seconds (02/11/15 1200) Overall Impression: Reassuring for gestational age (02/11/15 1200) Comments: (02/11/15 1200) Griselda Avila MD, PGY-4 02/11/2015 Associated attestation - Yesenia Donahue MD - 02/11/2015 12:14 PM EDT I personally reviewed the FHR Tracing and agree with the Resident???s interpretation. Yesenia Donahue MD * Cristin Edgar RN - 02/11/2015 6:39 AM EDT 0610- Stable throughout the night. No vag bleeding. Fasting BG 90. * Lorri Valles MD - 02/11/2015 2:42 AM EDT Images from the original note were not included. Obstetrical Interdisciplinary Antepartum Progress Note Patient ID: 29 y.o. female at 33w6d gestation, now HD#22 , bleed-free day #1 admitted for presumed placental abruption with an anterior placenta. otherwise complicated by GDMA2 on insulin, obesity, h/o CS x2, and h/o SAB and D&C x2. Now betamethasone and magnesium complete. 24 Hour Events - none Subjective: The patient has no complaints this morning, she has not yet noted any bleeding today orovernight. She is feeling active movement and denies contractions or loss of fluid. Review of Systems: All systems are otherwise reviewed and are negative. Physical Exam Last value Range last 24 hrs Temperature Temp: 36.5 ??C (97.7 ??F) Temp: [36.5 ??C (97.7 ??F)-37 ??C (98.6 ??F)] Heart Rate Heart Rate: 101 Heart Rate: [90-108] Blood Pressure BP: 111/61 mmHg BP: (106-116)/(61-78) Respiratory Rate Resp: 18 Resp: [18] SpO2 SpO2: 100 % SpO2: [97 %-100 %] Gen: appears well, in no acute distress CV: RRR Resp: CTAB Abd: soft, symmetric, nontender, gravid Uterus: soft, nontender Extremities: symmetric, nontender, no edema Heart Rate Interpretation: NST reactive yesterday, repeat pending today Glucose Accordion: Most Recent Ultrasound 02/06/15 32w6d EFW 2202g 79% BRIDGET 15.6 5.5 x 2 subchorionic hemorrhage at inferior portion of placenta. Cephalic, anterior placenta Assessment & Plan: 29 y.o. female at 33w6d gestation, HD#22, bleed-free day #1 admittedfor presumed placental abruption. otherwise complicated by GDMA2 on insulin, obesity, h/oCS x2, and h/o SAB and D&C x2. Please see problem-based assessment/plan below Placental Abruption: Bleeding and uterine irritability consistent with abruption - continue hospitalization to follow bleeding until resolved/bleed free x7 days minimum, patient will likely require hospitalization for duration of given bleeding pattern. Steroid status: Betamethasone complete 01/21, magnesium complete for neuroprotection 01/28 Delivery Indications: non reassuring status and maternal deterioration Delivery Plan: Repeat section (history of LTCS x2). She desires BTL at the time of delivery (consented) Consultations: neonatology Keep active type/screen Well-Being: reassuring status. Cephalic. - NST once daily Additional issues: GDMA2. Increasing insulin needs this admission, but good glucose control with current regimen, as above. Will continue to increase NPH and Novalog as appropriate for glucose control of <100 fasting and 140 pp. - Current insulin regimen - NPH 22 u qAM and 20 u qPM; Novalog 22 U breakfast, 22 U lunch, 26 U dinner. - every other day weights - carb control diet - growth appropriate Disposition: Patient with ongoing bleeding throughout hospitalization, given continued bleeding, she will likely requirehospitalization for the remainder of her . Goal for the Day: continued inpatient surveillance for placental abruption, continue diabetes management Cyrus Burnham MD PGY4 MFM attending note I saw and evaluated the patient. I agree with the findings and the plan of care as documented in Dr. Burnham's note. The patient reports feeling well. She denies contractions, leaking of fluid or bleeding. She reports good activity. My physical exam confirms and/or revises Dr. Burnham's exam. Temp: [36.5 ??C (97.7 ??F)] Heart Rate: [89-101] Resp: [18] BP: (110-111)/(61-68) SpO2: [99 %-100 %] Nonstress test: Documented elsewhere Abdomen: gravid, soft, nontender Ext: no edema Impression: Chronic abruption now at 33 6/7 weeks'. No evidence for labor or PROM Reassuring testing to date Well controlled GDMA2 Plan: Continue hospitalization for and maternal safety and ongoing assessment regarding need for delivery. Nonstress test FSBS and insulin Lorri Valles MD . * Yvonne Chung MD - 02/10/2015 2:32 PM EDT Antepartum NST Nonstress Test, Fetus A NST Start Time: 0150 (02/10/15 1428) HR (beats/min): 150 (02/10/15 1428) Variability: moderate (amplitude range 6 to 25 bpm) (02/10/15 1428) Accelerations: present (02/10/15 1428) Decelerations: none (02/10/15 1428) Contraction Frequency (min): None (02/10/15 1428) Nonstress Test Interpretation: Reactive, >32 weeks: two 15 bpm accelerations lasting 15 seconds (02/10/15 1428) Overall Impression: Reassuring for gestational age (02/09/15 0950) Hermilo Puckett MD PGY-3 I personally reviewed and interpreted this NST. * Ailyn Brand MD - 02/10/2015 6:27 AM EDT Obstetrical Interdisciplinary Antepartum Progress Note Patient ID: 29 y.o. female at 33w5d gestation, now HD#21 , bleed-free day #1 admitted for presumed placental abruption with an anterior placenta. otherwise complicated by GDMA2 on insulin, obesity, h/o CS x2, and h/o SAB and D&C x2. Now betamethasone and magnesium complete. 24 Hour Events - NST reactive yesterday. - evening dose of NPH and dinner associated novalog increased yesterday. Subjective: She feels overall well, no continued bleeding. She denies any pain, contractions, loss of fluid. Excellent movement. She is ambulating, and maintaining mental well-being. Review of Systems Denies chest pain, shortness of breath, headache, leg pain, nausea or vomiting. All systems are otherwise reviewed and are negative. Physical Exam Last value Range last 24 hrs Temperature Temp: 37 ??C (98.6 ??F) Temp: [36.6 ??C (97.9 ??F)-37 ??C (98.6 ??F)] Heart Rate Heart Rate: 108 Heart Rate: [93-108] Blood Pressure BP: 116/68 mmHg BP: (85-118)/(58-73) Respiratory Rate Resp: 18 Resp: [18] SpO2 SpO2: 98 % SpO2: [98 %-99 %] Gen: appears well, in no acute distress CV: RRR Resp: CTAB Abd: soft, symmetric, nontender, gravid Uterus: soft, nontender Extremities: symmetric, nontender, no edema Heart Rate Interpretation: NST reactive yesterday, repeat pending today Results for MARTINEZ RICHARDSON ( ) as of 02/10/2015 06:30 02/09/2015 06:22 02/09/2015 09:10 02/09/2015 13:32 02/09/2015 20:14 POC Glucose 80 147 144 129 Most Recent Ultrasound 02/06/15 32w6d EFW 2202g 79% BRIDGET 15.6 5.5 x 2 subchorionic hemorrhage at inferior portion of placenta. Cephalic, anterior placenta Assessment & Plan: 29 y.o. female at 33w5d gestation, HD#21, bleed-free day #1 admittedfor presumed placental abruption. otherwise complicated by GDMA2 on insulin, obesity, h/oCS x2, and h/o SAB and D&C x2. Placental Abruption: Bleeding and uterine irritability consistent with abruption - continue hospitalization to follow bleeding until resolved/bleed free x7 days. Steroid status: Betamethasone complete 01/21, magnesium complete for neuroprotection complete 01/28 Delivery Indications: non reassuring status and maternal deterioration Delivery Plan: Repeat section (history of LTCS x2). She desires BTL at the time of delivery (consented) Consultations: neonatology Type and screen active through 02/10. Well-Being: reassuring status. Cephalic. - NST once daily Additional issues: GDMA2. Increasing insulin needs this admission, but good glucose control with current regimen. Willcontinue to increase NPH and Novalog as appropriate for glucose control of <100 fasting and 140 pp. - Current insulin regimen - NPH 22 u qAM and 20 u qPM; Novalog 22 U breakfast, 22 U lunch, 26 U dinner. - every other day weights - carb control diet - growth appropriate Disposition: Patient is on a 7-degree bleed free countdown, and given her recurrent bleeding is preparing herself for hospitalization for the remainder of her . Goal for the Day: continued bleed free countdown, continue diabetes management, growth ultrasound today. This note was written by Dr. Zee Puckett and myself and completed during interdisciplinary rounds with MFM, charge attendant and bedside RN. Ailyn Brand MD PGY4 Associated attestation - Vinicius Godinez MD - 02/15/2015 7:21 PM EDT I have seen and examined the patient, providing negrete components as outlined below. I have reviewed the resident???s above note. * Sumaya Ontiveros MD - 02/09/2015 10:46 PM EDT NST Nonstress Test, Fetus A NST Start Time: 0912 (02/09/15 0950) HR (beats/min): 145 (02/09/15 0950) Variability: moderate (amplitude range 6 to 25 bpm) (02/09/15 0950) Accelerations: present (02/09/15 0950) Decelerations: none (02/09/15 0950) Contraction Frequency (min): none (02/09/15 0950) Nonstress Test Interpretation: Reactive, >32 weeks: two 15 bpm accelerations lasting 15 seconds (02/09/15 0950) Overall Impression: Reassuring for gestational age (02/09/15 0950) Comments: variable contraction at 0910 to 110 bpm. Will repeat NST in the afternoon. (02/01/15 1623) Vinicius Mack MD PGY4 02/09/2015 I personally reviewed and interpreted this NST. Sumaya Ontiveros MD * Ailyn Brand MD - 02/09/2015 6:37 AM EDT Obstetrical Interdisciplinary Antepartum Progress Note Patient ID: 29 y.o. female at 33w4d gestation, now HD#20 , bleed-free day #1 admitted for presumed placental abruption. otherwise complicated by GDMA2 on insulin, obesity, h/o CS x2, and h/o SAB and D&C x2. Now betamethasone and magnesium complete. 24 Hour Events - NST reactive yesterday. - small amount of bleeding last evening. - evening dose of NPH and dinner associated novalog increased yesterday. Subjective: She feels overall well, no continued bleeding. She denies any pain, contractions, loss of fluid. Excellent movement. She is ambulating, and maintaining mental well-being. Review of Systems Denies chest pain, shortness of breath, headache, leg pain, nausea or vomiting. All systems are otherwise reviewed and are negative. Physical Exam Last value Range last 24 hrs Temperature Temp: 36.6 ??C (97.9 ??F) Temp: [36.5 ??C (97.7 ??F)-36.9 ??C (98.4 ??F)] Heart Rate Heart Rate: 99 Heart Rate: [84-164] Blood Pressure BP: 87/59 mmHg BP: (83-124)/(45-80) Respiratory Rate Resp: 18 Resp: [16-18] SpO2 SpO2: 98 % SpO2: [97 %-100 %] Gen: appears well, in no acute distress CV: RRR Resp: CTAB Abd: soft, symmetric, nontender, gravid Uterus: soft, nontender Extremities: symmetric, nontender, no edema Heart Rate Interpretation: NST reactive yesterday, repeat pending today Results for MARTINEZ RICHARDSON ( ) as of 02/09/2015 06:38 02/08/2015 06:41 02/08/2015 09:41 02/08/2015 14:17 02/08/2015 19:03 02/09/2015 06:22 POC Glucose 108 127 131 144 80 Most Recent Ultrasound 02/06/15 32w6d EFW 2202g 79% BRIDGET 15.6 5.5 x 2 subchorionic hemorrhage at inferior portion of placenta. VTX Assessment & Plan: 29 y.o. female at 33w4d gestation, HD#20, bleed-free day #1 admittedfor presumed placental abruption. otherwise complicated by GDMA2 on insulin, obesity, h/oCS x2, and h/o SAB and D&C x2. Placental Abruption: Bleeding and uterine irritability consistent with abruption - continue hospitalization to follow bleeding until resolved/bleed free x7 days. Steroid status: Betamethasone complete 01/21, magnesium complete for neuroprotection complete 01/28 Delivery Indications: non reassuring status and maternal deterioration Delivery Plan: Repeat section (history of LTCS x2). She desires BTL at the time of delivery (consented) Consultations: neonatology Type and screen active through 02/10. Well-Being: reassuring status. Cephalic. - NST once daily Additional issues: GDMA2. Increasing insulin needs this admission, but good glucose control with current regimen. Willcontinue to increase NPH and Novalog as appropriate for glucose control of <100 fasting and 140 pp. - Current insulin regimen - NPH 20 u qAM and 20 u qPM; Novalog 20 U breakfast, 20 U lunch, 26 U dinner. - every other day weights - carb control diet - growth appropriate Disposition: Patient is on a 7-degree bleed free countdown, and given her recurrent bleeding is preparing herself for hospitalization for the remainder of her . Goal for the Day: continued bleed free countdown, continue diabetes management, growth ultrasound today. This note was written by Dr. Zee Puckett and myself and completed during interdisciplinary rounds with MFM, charge attendant and bedside RN. Ailyn Brand MD PGY4 Associated attestation - Vinicius Godinez MD - 02/09/2015 10:44 AM EDT I have seen and examined the patient, providing negrete components as outlined below. I have reviewed the resident???s above note. * Tiffanie Rader RN - 02/08/2015 7:05 PM EDT 1845: Pt reported small amount of bleeding. Spots of bright red blood on underwear and streaks of bright red while wiping. MD Gonzalez and Jose alerted and pt placed on EFM. Pt denies pain or contractions. * Yvnone Chung MD - 02/08/2015 3:35 PM EDT Antepartum NST Nonstress Test, Fetus A NST Start Time: 0951 (02/08/15 1534) HR (beats/min): 145 (02/08/15 1534) Variability: moderate (amplitude range 6 to 25 bpm) (02/08/15 1534) Accelerations: present (02/08/15 1534) Decelerations: none (02/08/15 1534) Contraction Frequency (min): none (02/08/15 1534) Nonstress Test Interpretation: Reactive, >32 weeks: two 15 bpm accelerations lasting 15 seconds (02/08/15 1534) Overall Impression: Reassuring for gestational age (02/08/15 1534) Comments: Hermilo Puckett MD PGY-3 I personally reviewed and interpreted this NST. * Ailyn Brand MD - 02/08/2015 6:54 AM EDT Obstetrical Interdisciplinary Antepartum Progress Note Patient ID: 29 y.o. female at 33w3d gestation, now HD#19, bleed-free day #2 admitted for presumed placental abruption. otherwise complicated by GDMA2 on insulin, obesity, h/o CS x2,and h/o SAB and D&C x2. Now betamethasone and magnesium complete. 24 Hour Events - NST reactive yesterday. - No further bleeding over the past day Subjective: She feels overall well, no continued bleeding. She denies any pain, contractions, loss of fluid. Excellent movement. She is ambulating, and maintaining mental well-being. Review of Systems Denies chest pain, shortness of breath, headache, leg pain, nausea or vomiting. All systems are otherwise reviewed and are negative. Physical Exam Last value Range last 24 hrs Temperature Temp: 36.6 ??C (97.9 ??F) Temp: [36.6 ??C (97.8 ??F)-36.7 ??C (98.1 ??F)] Heart Rate Heart Rate: 94 Heart Rate: [87-96] Blood Pressure BP: 113/62 mmHg BP: (100-113)/(62-74) Respiratory Rate Resp: 16 Resp: [16-18] SpO2 SpO2: 97 % SpO2: [97 %-98 %] Gen: appears well, in no acute distress CV: RRR Resp: CTAB Abd: soft, symmetric, nontender, gravid Uterus: soft, nontender Extremities: symmetric, nontender, no edema Heart Rate Interpretation: NST reactive yesterday, repeat pending today Results for MARTINEZ RICHARDSON ( ) as of 02/08/2015 06:54 02/07/2015 06:20 02/07/2015 09:04 02/07/2015 14:16 02/07/2015 19:04 02/08/2015 06:41 POC Glucose 89 112 106 144 108 Most Recent Ultrasound 02/06/15 32w6d EFW 2202g 79% BRIDGET 15.6 5.5 x 2 subchorionic hemorrhage at inferior portion of placenta. VTX Assessment & Plan: 29 y.o. female at 33w3d gestation, HD#19, bleed-free day #2 admittedfor presumed placental abruption. otherwise complicated by GDMA2 on insulin, obesity, h/oCS x2, and h/o SAB and D&C x2. Placental Abruption: Bleeding and uterine irritability consistent with abruption - continue hospitalization to follow bleeding until resolved/bleed free x7 days. Steroid status: Betamethasone complete 01/21, magnesium complete for neuroprotection complete 01/28 Delivery Indications: non reassuring status and maternal deterioration Delivery Plan: Repeat section (history of LTCS x2). She desires BTL at the time of delivery (consented) Consultations: neonatology Type and screen active through 02/10. Well-Being: reassuring status. Cephalic. - NST once daily Additional issues: GDMA2. Increasing insulin needs this admission, but good glucose control with current regimen. Willcontinue to increase NPH and Novalog as appropriate for glucose control of <100 fasting and 140 pp. - Current insulin regimen - NPH 20 u qAM and 20 u qPM; Novalog 20 U breakfast, 20 U lunch, 24 U dinner. - every other day weights - carb control diet - growth appropriate Disposition: Patient is on a 7-degree bleed free countdown, and given her recurrent bleeding is preparing herself for hospitalization for the remainder of her . Goal for the Day: continued bleed free countdown, continue diabetes management, growth ultrasound today. This note was written by Dr. Zee Puckett and myself and completed during interdisciplinary rounds with MFM, charge attendant and bedside RN. Ailyn Brand MD PGY4 Associated attestation - Vinicius Godinez MD - 02/09/2015 10:54 AM EDT I have seen and examined the patient, providing negrete components as outlined below. I have reviewed the resident???s above note. * Vinicius Godinez MD - 02/07/2015 7:13 PM EDT Patient ID: 29 y.o. female at 33w0d gestation, now HD#17, bleed-free day #0 admitted for presumed placental abruption. otherwise complicated by GDMA2 on insulin, obesity, h/o CS x2,and h/o SAB and D&C x2. Now betamethasone and magnesium complete. 24 Hour Events - NST reactive yesterday. Subjective: No c/o's Review of Systems Denies chest pain, shortness of breath, headache, leg pain, nausea or vomiting. All systems are otherwise reviewed and are negative. Physical Exam AFVSS Last value Range last 24 hrs Gen: appears well, in no acute distress CV: RRR Resp: CTAB Abd: soft, symmetric, nontender, gravid Uterus: soft, nontender Extremities: symmetric, nontender, no edema Heart Rate Interpretation: NST reactive yesterday, repeat pending today Most Recent Ultrasound 01/21/2015: Cephalic, anterior placenta, BRIDGET 16.3, EFW 1898g (92%ile), no u/s evidence of abruption Assessment & Plan: 29 y.o. female at 33w0d gestation, HD#17, bleed-free day #1 admittedfor presumed placental abruption. otherwise complicated by GDMA2 on insulin, obesity, h/oCS x2, and h/o SAB and D&C x2. Placental Abruption: Bleeding and uterine irritability consistent with abruption - continue hospitalization to follow bleeding until resolved/bleed free x7 days. Steroid status: Betamethasone complete 01/21, magnesium complete for neuroprotection complete 01/28 Delivery Indications: non reassuring status and maternal deterioration Delivery Plan: Repeat section (history of LTCS x2). She desires BTL at the time of delivery (consented) Consultations: neonatology Type and screen active through 02/07. -Repeat CBC today Well-Being: reassuring status. Cephalic. - NST once daily Additional issues: GDMA2. Increasing insulin needs this admission, but good glucose control with current regimen. Willcontinue to increase NPH and Novalog as appropriate for glucose control of <100 fasting and 140 pp. - Current insulin regimen - NPH 20 u qAM and 18 u qPM; Novalog 18 U breakfast, 20 U lunch, 22 U dinner. - every other day weights - carb control diet - growth ultrasound ordered for today Disposition: Patient is on a 7-degree bleed free countdown, and given her recurrent bleeding is preparing herself for hospitalization for the remainder of her . Goal for the Day: continued bleed free countdown, continue diabetes management, growth ultrasound today. This note was written by Dr. Vinicius Godinez and completed during interdisciplinary rounds with MFM, charge attendant and bedside RN. * Zee Puckett MD - 02/07/2015 5:06 PM EDT Antepartum NST Nonstress Test, Fetus A NST Start Time: 1339 (02/07/15 1705) HR (beats/min): 135 (02/07/15 1705) Variability: moderate (amplitude range 6 to 25 bpm) (02/07/15 170) Accelerations: present (02/07/151704) Decelerations: none (02/07/15 170) Contraction Frequency (min): none (02/07/15 170) Nonstress Test Interpretation: Reactive, >32 weeks: two 15 bpm accelerations lasting 15 seconds (02/07/15 170) Overall Impression: Reassuring for gestational age (02/07/15 170) Comments: variable contraction at 0910 to 110 bpm. Will repeat NST in the afternoon. (02/01/15 1623) Hermilo Puckett MD PGY-3 Associated attestation - Sanju Marcos MD - 02/07/2015 5:16 PM EDT I personally reviewed and interpreted this NST. Sanju Marcos MD * Lorri Sequeira RD - 02/07/2015 2:37 PM EDT Nutrition Services Follow-up Note Patient Active Problem List Diagnosis Code ??? Supervision of high risk in second trimester V23.9 ??? Gestational diabetes 648.80, V58.67 ??? Previous delivery affecting 654.20 ??? with third trimester bleeding, antepartum 641.93 Diet: gest cho Appetite: good Pert. Labs: Results for MARTINEZ RICHARDSON ( ) as of 02/07/2015 14:45 Ref. Range 02/06/2015 14:31 02/06/2015 20:30 02/07/2015 06:20 02/07/2015 09:04 02/07/2015 14:16 POC Glucose Latest Range: 60-199 mg/dL 112 137 89 112 106 Medications: noted Pt interview: Pt is doing well. She is being fairly consistent with her meals/snacks when she findssomething that works well for her blood glucose levels. I informed her of how to change her snacks and will send a carb count sheet up with her next meal. Encouraged her to have more protein at night- gave a few suggestions. Otherwise, BG levels are within range presently. Nutrition will follow weekly unless consulted sooner. * Vinicius Godinez MD - 02/07/2015 12:43 PM EDT I have seen and examined the patient, providing negrete components as outlined below. I have reviewed the resident???s above note. * Ailyn Brand MD - 02/06/2015 4:56 PM EDT Nonstress Test, Fetus A NST Start Time: 927 (02/06/151654) HR (beats/min): 150 (02/06/151654) Variability: moderate (amplitude range 6 to 25 bpm) (02/06/151654) Accelerations: present (02/06/151654) Decelerations: none (02/06/151654) Contraction Frequency (min): None (02/06/151654) Nonstress Test Interpretation: Reactive, >32 weeks: two 15 bpm accelerations lasting 15 seconds (02/06/151654) Overall Impression: Reassuring for gestational age (02/06/151654) Ailyn Brand MD Associated attestation - Yesenia Donahue MD - 02/06/2015 5:04 PM EDT I personally reviewed the FHR Tracing and agree with the Resident???s interpretation. Yesenia Donahue MD * Ailyn Brand MD - 02/06/2015 8:32 AM EDT Obstetrical Interdisciplinary Antepartum Progress Note Patient ID: 29 y.o. female at 33w1d gestation, now HD#17, bleed-free day #0 admitted for presumed placental abruption. otherwise complicated by GDMA2 on insulin, obesity, h/o CS x2,and h/o SAB and D&C x2. Now betamethasone and magnesium complete. 24 Hour Events - NST reactive yesterday. - Scant bleeding on pad at 05:30 Subjective: She feels overall well, she bled enough that she would have worn a tampon were she on her period. She denies any pain, contractions, loss of fluid. Excellent movement. She is ambulating, and maintaining mental well-being. Review of Systems Denies chest pain, shortness of breath, headache, leg pain, nausea or vomiting. All systems are otherwise reviewed and are negative. Physical Exam Last value Range last 24 hrs Temperature Temp: 36.7 ??C (98.1 ??F) Temp: [36.4 ??C (97.5 ??F)-36.7 ??C (98.1 ??F)] Heart Rate Heart Rate: 99 Heart Rate: [85-99] Blood Pressure BP: 103/67 mmHg BP: (103-108)/(64-68) Respiratory Rate Resp: 16 Resp: [16-18] SpO2 SpO2: 99 % SpO2: [99 %] Gen: appears well, in no acute distress CV: RRR Resp: CTAB Abd: soft, symmetric, nontender, gravid Uterus: soft, nontender Extremities: symmetric, nontender, no edema Heart Rate Interpretation: NST reactive yesterday, repeat pending today Results for MARTINEZ RICHARDSON ( ) as of 02/06/2015 08:32 Ref. Range 02/05/2015 10:01 02/05/2015 14:11 02/05/2015 19:14 02/06/2015 07:27 POC Glucose Latest Range: 60-199 mg/dL 127 128 144 90 Most Recent Ultrasound 01/21/2015: Cephalic, anterior placenta, BRIDGET 16.3, EFW 1898g (92%ile), no u/s evidence of abruption Assessment & Plan: 29 y.o. female at 33w1d gestation, HD#17, bleed-free day #0 admittedfor presumed placental abruption. otherwise complicated by GDMA2 on insulin, obesity, h/oCS x2, and h/o SAB and D&C x2. Placental Abruption: Bleeding and uterine irritability consistent with abruption - continue hospitalization to follow bleeding until resolved/bleed free x7 days. Steroid status: Betamethasone complete 01/21, magnesium complete for neuroprotection complete 01/28 Delivery Indications: non reassuring status and maternal deterioration Delivery Plan: Repeat section (history of LTCS x2). She desires BTL at the time of delivery (consented) Consultations: neonatology Type and screen active through 02/07. -Repeat CBC today Well-Being: reassuring status. Cephalic. - NST once daily Additional issues: GDMA2. Increasing insulin needs this admission, but good glucose control with current regimen. Willcontinue to increase NPH and Novalog as appropriate for glucose control of <100 fasting and 140 pp. - Current insulin regimen - NPH 20 u qAM and 18 u qPM; Novalog 18 U breakfast, 20 U lunch, 22 U dinner. - every other day weights - carb control diet - growth ultrasound ordered for today Disposition: Patient is on a 7-degree bleed free countdown, and given her recurrent bleeding is preparing herself for hospitalization for the remainder of her . Goal for the Day: continued bleed free countdown, continue diabetes management, growth ultrasound today. This note was written by Dr. Annabel Joseph and myself and completed during interdisciplinary roundswith MFM, charge attendant and bedside RN. Ailyn Brand MD PGY4 Associated attestation - Vinicius Godinez MD - 02/06/2015 10:56 AM EDT I have seen and examined the patient, providing negrete components as outlined below. I have reviewed the resident???s above note. * Cristin Edgar RN - 02/06/2015 7:39 AM EDT 0520- Pt up to the bathroom. Report vag bleeding on underwear, not saturated, small amt. * Annabel Joseph MD - 02/06/2015 7:03 AM EDT Obstetrical Interdisciplinary Antepartum Progress Note Patient ID: 29 y.o. female at 33w2d gestation, now HD#18, bleed-free day #1 admitted for presumed placental abruption. otherwise complicated by GDMA2 on insulin, obesity, h/o CS x2,and h/o SAB and D&C x2. Now betamethasone and magnesium complete. 24 Hour Events - episode of bleeding yesterday - NST reactive yesterday at 0530 Subjective: She feels overall well and has had no bleeding since yesterday. She denies any pain, contractions, loss of fluid. Excellent movement. She is ambulating. Review of Systems: Denies chest pain, shortness of breath, headache, leg pain, nausea or vomiting. All systems are otherwise reviewed and are negative. Physical Exam Last value Range last 24 hrs Temperature Temp: 36.5 ??C (97.7 ??F) Temp: [36.5 ??C (97.7 ??F)-36.7 ??C (98.1 ??F)] Heart Rate Heart Rate: 88 Heart Rate: [88-99] Blood Pressure BP: 123/67 mmHg BP: (103-123)/(67-69) Respiratory Rate Resp: 18 Resp: [18] SpO2 SpO2: 99 % SpO2: [95 %-99 %] Gen: appears well, in no acute distress CV: RRR Resp: CTAB Abd: soft, symmetric, nontender, gravid Uterus: soft, nontender Extremities: symmetric, nontender, no edema Heart Rate Interpretation: NST reactive yesterday, repeat pending today Results for MARTINEZ RICHARDSON ( ) as of 02/07/2015 07:28 02/06/2015 07:27 02/06/2015 10:03 02/06/2015 14:31 02/06/2015 20:30 02/07/2015 06:20 POC Glucose 90 143 112 137 89 Lab Results Component Value Date WBC 9.7 02/06/2015 RBC 3.71* 02/06/2015 HGB 11.9 02/06/2015 HCT 35.5 02/06/2015 MCV 95.7* 02/06/2015 MCH 32.1 02/06/2015 MCHC 33.5 02/06/2015 PLATELET 176 02/06/2015 RDWCV 14.6* 02/06/2015 Most Recent Ultrasound 02/06/15 32w6d 2202 g, 79% BRIDGET 16 vtx Anterior placenta 5 cm subchorionic hemorrhage at inferior edge of placenta. Assessment & Plan: 29 y.o. female at 33w2d gestation, HD#18, bleed-free day #1 admittedfor presumed placental abruption. otherwise complicated by GDMA2 on insulin, obesity, h/oCS x2, and h/o SAB and D&C x2. Placental Abruption: Bleeding and uterine irritability likely secondary to subchorionic hemorrhage. - continue hospitalization to follow bleeding until resolved/bleed free x7 days. -Presentation: cephalic - Status: reassuring surveillance: NST once daily GBS Management: None Required Steroid status: Betamethasone complete 01/21, magnesium complete for neuroprotection complete 01/28 Delivery Indications: non reassuring status and maternal deterioration Delivery Plan: Repeat section (history of LTCS x2). She desires BTL at the time of delivery (consented) Consultations: neonatology Type and screen active through 02/07 - Repeat T+S tonight Additional issues: GDMA2. Increasing insulin needs this admission, but good glucose control with current regimen. Willcontinue to increase NPH and Novalog as appropriate for glucose control of <100 fasting and 140 pp. - Current insulin regimen - NPH 20 u qAM and 18 u qPM; Novalog 20 u qAM, 20 units lunch, 22u qPM. - Novalog dinner to 24 units and breakfast 16 units. - every other day weights, 5 lb weight gain over past 11 days. - carb control diet - growth ultrasound tomorrow Constipation: colace BID with miralax prn Disposition: Patient is on a 7-day bleed free countdown, and given her recurrent bleeding is preparing herself for hospitalization for the remainder of her . Goal for the Day: continued bleed free countdown, continue diabetes management, initiate constipation mangement Zee Puckett MD PGY3 Associated attestation - Vinicius Godinez MD - 02/15/2015 7:15 PM EDT I have seen and examined the patient, providing negrete components as outlined below. I have reviewed the resident???s above note. * Zee Puckett MD - 02/05/2015 4:18 PM EDT Antepartum NST Nonstress Test, Fetus A NST Start Time: 1004 (02/05/151616) HR (beats/min): 155 (02/05/15 161) Variability: moderate (amplitude range 6 to 25 bpm) (02/05/151616) Accelerations: present (02/05/151616) Decelerations: none (02/05/151616) Contraction Frequency (min): intermittent (02/05/151616) Nonstress Test Interpretation: Reactive, >32 weeks: two 15 bpm accelerations lasting 15 seconds (02/05/151616) Overall Impression: Reassuring for gestational age (02/05/151616) Hermilo Puckett MD PGY-3 * Zia Gan MD - 02/05/2015 3:12 PM EDT 02/05/15 1512 Nonstress Test, Fetus A HR (beats/min) 120 Variability moderate (amplitude range 6 to 25 bpm) Accelerations present Decelerations none Contraction Frequency (min) rare short contractions Nonstress Test Interpretation Reactive, >32 weeks: two 15 bpm accelerations lasting 15 seconds Overall Impression Reassuring for gestational age NST Times NST Start Time 1000 I personally reviewed and interpreted this NST. * Janna Oliva RN - 02/05/2015 8:04 AM EDT 0800 Pt in bed. Denies CTX, LOF, VB and reports FM. Insructed to notify RN of changes. 1600 Pt reports no changes. * Zia Gan MD - 02/05/2015 7:07 AM EDT Obstetrical Interdisciplinary Antepartum Progress Note Patient ID: 29 y.o. female at 33w0d gestation, now HD#16, bleed-free day #1 admitted for presumed placental abruption. otherwise complicated by GDMA2 on insulin, obesity, h/o CS x2,and h/o SAB and D&C x2. Now betamethasone and magnesium complete. 24 Hour Events - episode of bleeding yesterday - NST reactive yesterday. Subjective: She feels overall well and has had no bleeding since yesterday. She denies any pain, contractions, loss of fluid. Excellent movement. She is ambulating, and maintaining mental well-being. Review of Systems Denies chest pain, shortness of breath, headache, leg pain, nausea or vomiting. All systems are otherwise reviewed and are negative. Physical Exam Last value Range last 24 hrs Temperature Temp: 36.6 ??C (97.9 ??F) Temp: [36.6 ??C (97.9 ??F)] Heart Rate Heart Rate: 92 Heart Rate: [85-92] Blood Pressure BP: 109/69 mmHg BP: (109-111)/(65-69) Respiratory Rate Resp: 18 Resp: [18] SpO2 SpO2: 100 % SpO2: [98 %-100 %] Gen: appears well, in no acute distress CV: RRR Resp: CTAB Abd: soft, symmetric, nontender, gravid Uterus: soft, nontender Extremities: symmetric, nontender, no edema Heart Rate Interpretation: NST reactive yesterday, repeat pending today Results for MARTINEZ RICHARDSON ( ) as of 02/05/2015 07:08 02/04/2015 07:05 02/04/2015 09:50 02/04/2015 14:15 02/04/2015 19:03 02/05/2015 06:58 POC Glucose 85 137 137 109 99 Most Recent Ultrasound 01/21/2015: Cephalic, anterior placenta, BRIDGET 16.3, EFW 1898g (92%ile), no u/s evidence of abruption Assessment & Plan: 29 y.o. female at 33w0d gestation, HD#16, bleed-free day #1 admittedfor presumed placental abruption. otherwise complicated by GDMA2 on insulin, obesity, h/oCS x2, and h/o SAB and D&C x2. Placental Abruption: Bleeding and uterine irritability consistent with abruption - continue hospitalization to follow bleeding until resolved/bleed free x7 days. -Presentation: cephalic - Status: reassuring surveillance: NST once daily GBS Management: None Required Steroid status: Betamethasone complete 01/21, magnesium complete for neuroprotection complete 01/28 Delivery Indications: non reassuring status and maternal deterioration Delivery Plan: Repeat section (history of LTCS x2). She desires BTL at the time of delivery (consented) Consultations: neonatology Type and screen active through 02/04. Additional issues: GDMA2. Increasing insulin needs this admission, but good glucose control with current regimen. Willcontinue to increase NPH and Novalog as appropriate for glucose control of <100 fasting and 140 pp. - Current insulin regimen - NPH 20 u qAM and 18 u qPM; Novalog 20 u qAM, 20 units lunch, 22u qPM. - Novalog dinner to 24 units and breakfast 16 units. - every other day weights - carb control diet - growth ultrasound tomorrow Disposition: Patient is on a 7-degree bleed free countdown, and given her recurrent bleeding is preparing herself for hospitalization for the remainder of her . Goal for the Day: continued bleed free countdown, continue diabetes management Zee Puckett MD PGY3 Attending Progress Note Zia Gan MD I reviewed the above note and discussed the patient at rounds with the team. I agree with the documented findings and plan of care. My evaluation is as below: Subjective: No complaints, no bleeding today or cramping. States that contractions on the monitor felt more to her like movement. Objective: ??? Temp: [36.6 ??C (97.9 ??F)-36.7 ??C (98.1 ??F)] ??? Heart Rate: [85-93] ??? Resp: [18] ??? BP: (103-111)/(65-69) ??? SpO2: [98 %-100 %] ??? Abdomen: Soft, non-tender, not distended ??? Uterus: Soft, Non-tender ??? Extremities: trace edema ??? NST: reactive for today, short 20-30 second contractions seen please see separate documentation. Impression & Plan 33w0d IUP with an ERIC of 03/26/2015, Set as working upon episode creation, admitted with chronic marginal abruption with almost daily bleeding, she is at high risk of large hemmorrhage. She has GDMA2. We have been increasing her insulin dose. We evaluated her tray today adn it appears she has not been getting a carbohydrate controled diet. She has not been weighted since 01/30. It appears she pound son admission. We will check her weight today, we changed her diet. We will continue to follow her FSBS and adjust her insulin. Delivery Indications: progressive labor, non reassuring status and hemmorhage Zia Gna MD 02/05/2015 * Chanelle Mackey RN - 02/04/2015 11:29 PM EDT In depth discussion regarding and risk for clots. Pt states she is unable to sleep with SCD's in place. Encouraged patient to wear the SCD's during the day if possible. States she would be willing to do that tomorrow. * Mayte Ayala RN - 02/04/2015 11:02 AM EDT 02/04/15 1059 Uterine Activity Assessment Method palpation;TOCO (external tocotransducer) Contraction Frequency (min) irreg Uterine Resting Tone soft by palpation Assessment Movement active Mode continuous external HR (beats/min) 155 Variability moderate (amplitude range 6 to 25 bpm) Accelerations present Decelerations none Pt with small amt of bleeding reported to MD team. Pt on EFM for NST. Pt off EFM per Dr Merrill. * Mayte Ayala RN - 02/04/2015 8:03 AM EDT Pt sitting up in bed this morning looking tired. Pt agrees that she did not sleep that well, but declines meds stating, I don't like the hangover feeling. Pt encouraged to rest today. No bleeding overnight, and no other concerns at this time. Call light within reach. * Zia Gan MD - 02/04/2015 6:44 AM EDT Obstetrical Interdisciplinary Antepartum Progress Note Patient ID: 29 y.o. female at 32w6d gestation, now HD#15, bleed-free day #2 admitted for presumed placental abruption. otherwise complicated by GDMA2 on insulin, obesity, h/o CS x2,and h/o SAB and D&C x2. Now betamethasone and magnesium complete. 24 Hour Events - no further bleeding. - NST reactive yesterday. Subjective: She feels overall well. She denies any pain, contractions, loss of fluid. Excellent movement. She is ambulating, and maintaining mental well- being. She very much enjoyed her visit with our handling tech yesterday. She would welcome pet therapy or massage. Review of Systems Denies chest pain, shortness of breath, headache, leg pain, nausea or vomiting. All systems are otherwise reviewed and are negative. Physical Exam Last value Range last 24 hrs Temperature Temp: 36.8 ??C (98.2 ??F) Temp: [36.8 ??C (98.2 ??F)] Heart Rate Heart Rate: 96 Heart Rate: [96-100] Blood Pressure BP: 107/66 mmHg BP: (102-107)/(66-74) Respiratory Rate Resp: 18 Resp: [18] SpO2 SpO2: 98 % SpO2: [97 %-98 %] Gen: appears well, in no acute distress CV: RRR Resp: CTAB Abd: soft, symmetric, nontender, gravid Uterus: soft, nontender Extremities: symmetric, nontender, no edema Heart Rate Interpretation: NST reactive yesterday, repeat pending today 02/03/2015 06:52 02/03/2015 09:43 02/03/2015 13:52 02/03/2015 20:08 POC Glucose 86 148 130 123 Most Recent Ultrasound 01/21/2015: Cephalic, anterior placenta, BRIDGET 16.3, EFW 1898g (92%ile), no u/s evidence of abruption Assessment & Plan: 29 y.o. female at 32w6d gestation, HD#15, bleed-free day #2 admittedfor presumed placental abruption. otherwise complicated by GDMA2 on insulin, obesity, h/oCS x2, and h/o SAB and D&C x2. Placental Abruption: Bleeding and uterine irritability consistent with abruption - continue hospitalization to follow bleeding until resolved/bleed free x7 days. -Presentation: cephalic - Status: reassuring surveillance: NST once daily GBS Management: None Required Steroid status: Betamethasone complete 01/21, magnesium complete for neuroprotection complete 01/28 Delivery Indications: non reassuring status and maternal deterioration Delivery Plan: Repeat section (history of LTCS x2). She desires BTL at the time of delivery (consented) Consultations: neonatology Type and screen active through 02/04. Additional issues: GDMA2. Increasing insulin needs this admission, but good glucose control with current regimen. Willcontinue to increase NPH and Novalog as appropriate for glucose control of <100 fasting and 140 pp. - Current insulin regimen - NPH 20 u qAM and 18 u qPM; Novalog 20 u qAM, 20 units lunch, 22u qPM. - Novalog dinner to 24 units and breakfast 16 units. Disposition: Patient is on a 7-degree bleed free countdown, and given her recurrent bleeding is preparing herself for hospitalization for the remainder of her . Goal for the Day: continued bleed free countdown, continue diabetes management Zee Puckett MD PGY3 Attending Progress Note Zia Gan MD I reviewed the above note and discussed the patient at rounds with the team. I agree with the documented findings and plan of care. My evaluation is as below: Subjective: States had bright red bleeding this am accompanied by some cramping. Good FM. No leaking. Objective: ??? Temp: [36.8 ??C (98.2 ??F)] ??? Heart Rate: [96-100] ??? Resp: [18] ??? BP: (102-107)/(66-74) ??? SpO2: [97 %-98 %] ??? Abdomen: Soft, non-tender, not distended ??? Uterus: Soft, Non-tender ??? Extremities: trace edema ??? NST: pending for today, please see separate documentation. Post breakfast BS 137 Impression & Plan 32w6d IUP with an ERIC of 03/26/2015, admitted with marginal abruption and multiple episodes of bleeding since admission with a new episode this am. FSBS within range. We will continue to observe closely with NST and deliver for significant bleeding by repeat section. Delivery Indications: progressive labor, non reassuring status and significant bleeding. Zia Gan MD 02/04/2015 * Griselda Hampton MD - 02/03/2015 2:57 PM EDT Nonstress Test, Fetus A NST Start Time: 1918 (02/03/151455) HR (beats/min): 150 (02/03/15 145) Variability: moderate (amplitude range 6 to 25 bpm) (02/03/151455) Accelerations: present (02/03/151455) Decelerations: none (02/03/151455) Contraction Frequency (min): None (02/03/151455) Nonstress Test Interpretation: Reactive, >32 weeks: two 15 bpm accelerations lasting 15 seconds (02/03/151455) Overall Impression: Reassuring for gestational age (02/03/151455) Ailyn Brand MD * Lorri Valles MD - 02/03/2015 10:24 AM EDT Obstetrical Interdisciplinary Antepartum Progress Note Patient ID: 29 y.o. female at 32w5d gestation, now HD#14, bleed-free day #1 admitted for presumed placental abruption. otherwise complicated by GDMA2 on insulin, obesity, h/o CS x2,and h/o SAB and D&C x2. Now betamethasone and magnesium complete. 24 Hour Events - brown/red bleeding soaking underwear and staining pants yesterday, none today. - NST reactive yesterday. Subjective: She feels overall well. She denies any pain, contractions, loss of fluid. Excellent movement. She is ambulating, and maintaining mental well- being. She very much enjoyed her visit with our handling tech yesterday. She would welcome pet therapy or massage. Review of Systems: Denies chest pain, shortness of breath, headache, leg pain, nausea or vomiting. All systems are otherwise reviewed and are negative. Physical Exam Last value Range last 24 hrs Temperature Temp: 36.9 ??C (98.4 ??F) Temp: [36.5 ??C (97.7 ??F)-36.9 ??C (98.4 ??F)] Heart Rate Heart Rate: 93 Heart Rate: [93-97] Blood Pressure BP: 105/67 mmHg BP: (105-127)/(67-83) Respiratory Rate Resp: 18 Resp: [18] SpO2 SpO2: 97 % SpO2: [97 %-99 %] Gen: appears well, in no acute distress CV: RRR Resp: CTAB Abd: soft, symmetric, nontender, gravid Uterus: soft, nontender Extremities: symmetric, nontender, no edema Heart Rate Interpretation: NST reactive yesterday, repeat pending today Results for MARTINEZ RICHARDSON ( ) as of 02/03/2015 09:55 Ref. Range 02/02/2015 09:33 02/02/2015 14:22 02/02/2015 20:37 02/03/2015 06:52 02/03/2015 09:43 POC Glucose Latest Range: 60-199 mg/dL 175 183 127 86 148 Recent Labs 01/27/15 1045 WBC 9.7 HGB 12.0 HCT 36.5 PLATELET 177 Recent Labs 01/27/15 1045 CREATININE 0.53* MAGNESIUM 1.25* Most Recent Ultrasound 01/21/2015: Cephalic, anterior placenta, BRIDGET 16.3, EFW 1898g (92%ile), no u/s evidence of abruption Assessment & Plan: 29 y.o. female at 32w5d gestation, HD#14, bleed-free day #1 admittedfor presumed placental abruption. otherwise complicated by GDMA2 on insulin, obesity, h/oCS x2, and h/o SAB and D&C x2. Placental Abruption: Bleeding and uterine irritability consistent with abruption - continue hospitalization to follow bleeding until resolved/bleed free x7 days. -Presentation: cephalic - Status: reassuring surveillance: NST once daily GBS Management: None Required Steroid status: Betamethasone complete 01/21, magnesium complete for neuroprotection complete 01/28 Delivery Indications: non reassuring status and maternal deterioration Delivery Plan: Repeat section (history of LTCS x2). She desires BTL at the time of delivery (consented) Consultations: neonatology Type and screen active through 02/04. Additional issues: GDMA2. Increasing insulin needs this admission, but good glucose control with current regimen. Willcontinue to increase NPH and Novalog as appropriate for glucose control of <100 fasting and 140 pp. Will increase Novalog doses for dinner and breakfast. . - Current insulin regimen - NPH 20 u qAM and 18 u qPM; Novalog 20 u qAM, 20 units lunch, 22u qPM. - Novalog dinner to 24 units and breakfast 16 units. Disposition: Patient is on a 7-degree bleed free countdown, and given her recurrent bleeding is preparing herself for hospitalization for the remainder of her . Goal for the Day: continued bleed free countdown, continue diabetes management, will call for massage and pet therapy. This note was completed during interdisciplinary rounds with CALE, solar sales representative and assessor , CRC, charge attendant andbedside RN. Ailyn Brand MD PGY4 MFM attending note I saw and evaluated the patient with the team on multidisciplinary rounds. I agree with the findings and the plan of care as documented in the note above. The patient reports feeling OK. She is a bittearful about having had bleeding and not being able to be discharged. She denies contractions and leaking of fluid. She reports good activity. My physical exam confirms and/or revises the resident's exam. Temp: [36.6 ??C (97.9 ??F)-36.9 ??C (98.4 ??F)] Heart Rate: [93-94] Resp: -- BP: (105-127)/(67-83) SpO2: [97 %-99 %] Nonstress test: Documented elsewhere Abdomen: gravid, soft, nontender Ext: no edema Impression: Ongoing third trimester bleeding presumably due to a chronic abruption. Despite this the testing has been reassuring and she has not had labor. Previous , plans repeat GDMA2 Plan: Continue hospitalization for and maternal safety and ongoing assessment regarding need for delivery. It is likely she will need to be hospitalized until delivery Nonstress test Increase insulin and continue glucose monitoring. Lorri Valles MD * Lorri Neville - 02/02/2015 5:00 PM EDT 165- pt called out to report vaginal bleeding. Pt states she woke from her nap and found blood on her bed pad, and when she went to the BR it was on her underwear and pants. It is a red/brownish color, moderate amount, no clots present. Pt denies ctx or pain, states she had slight cramping before she fell asleep. Pt placed on monitor and Dr Brand notified of pt condition, strip reviewed. 1720- Pt reports no pain or ctx, vale pad checked, no bleeding noted on pad. 1803- plan of care discussed with Dr Burnham, strip reviewed. No more bleeding noted on pad, ordersreceived to take patient off EFM. Plan of care discussed with patient and she verbalizes understanding of when to call for RN. * Rita Bennett MD - 02/02/2015 4:49 PM EDT Nonstress Test, Fetus A NST Start Time: 0936 (02/02/15 164) HR (beats/min): 150 (02/02/15 1648) Variability: moderate (amplitude range 6 to 25 bpm) (02/02/15 164) Accelerations: present (02/02/15 1006) Decelerations: none (02/02/15 164) Contraction Frequency (min): None (02/02/15 164) Nonstress Test Interpretation: Reactive, >32 weeks: two 15 bpm accelerations lasting 15 seconds (02/02/151647) Overall Impression: Reassuring for gestational age (02/02/151647) Comments: variable contraction at 0910 to 110 bpm. Will repeat NST in the afternoon. (02/01/15 1623) Ailyn Brand MD Attending note: I have personally reviewed the NST and agree with Dr. Brand's documentation. * Lorri Valles MD - 02/02/2015 7:08 AM EDT Obstetrical Interdisciplinary Antepartum Progress Note Patient ID: 29 y.o. female at 32w4d gestation, now HD#13, bleed-free day #5 admitted for presumed placental abruption. otherwise complicated by GDMA2 on insulin, obesity, h/o CS x2,and h/o SAB and D&C x2. Now betamethasone and magnesium complete. 24 Hour Events - No issues - NST reactive yesterday. Subjective: Review of Systems: otherwise negative Physical Exam Last value Range last 24 hrs Temperature Temp: 36.7 ??C (98.1 ??F) Temp: [36.5 ??C (97.7 ??F)-36.8 ??C (98.2 ??F)] Heart Rate Heart Rate: 88 Heart Rate: [88-108] Blood Pressure BP: 102/58 mmHg BP: (102-111)/(58-69) Respiratory Rate Resp: 16 Resp: [16-18] SpO2 SpO2: 100 % SpO2: [99 %-100 %] Gen: appears well, in no acute distress CV: RRR Resp: CTAB Abd: soft, symmetric, nontender, gravid Uterus: soft, nontender Extremities: symmetric, nontender, no edema Heart Rate Interpretation: NST reactive yesterday, repeat pending today Results for MARTINEZ RICHARDSON ( ) as of 02/02/2015 07:08 02/01/2015 06:58 02/01/2015 09:41 02/01/2015 12:57 02/01/2015 19:09 02/02/2015 06:45 POC Glucose 85 144 122 146 87 Recent Labs 01/27/15 1045 WBC 9.7 HGB 12.0 HCT 36.5 PLATELET 177 Recent Labs 01/27/15 1045 CREATININE 0.53* MAGNESIUM 1.25* Most Recent Ultrasound 01/21/2015: Cephalic, anterior placenta, BRIDGET 16.3, EFW 1898g (92%ile), no u/s evidence of abruption Assessment & Plan: 29 y.o. female at 32w4d gestation, HD#13, bleed-free day #5 admittedfor presumed placental abruption. otherwise complicated by GDMA2 on insulin, obesity, h/oCS x2, and h/o SAB and D&C x2. Placental Abruption: Bleeding and uterine irritability consistent with abruption - continue hospitalization to follow bleeding until resolved/bleed free x7 days. -Presentation: cephalic - Status: reassuring surveillance: NST once daily GBS Management: None Required Steroid status: Betamethasone complete 01/21, magnesium complete for neuroprotection complete 01/28 Delivery Indications: non reassuring status and maternal deterioration Delivery Plan: Repeat section (history of LTCS x2). She desires BTL at the time of delivery (consented) Consultations: neonatology Type and screen active through 02/04. Additional issues: GDMA2. Increasing insulin needs this admission, but good glucose control with current regimen. Willcontinue to increase NPH and Novalog as appropriate for glucose control of <100 fasting and 140 pp. Will increase Novalog doses for dinner and breakfast. . -Current insulin regimen - NPH 20 u qAM and 18 u qPM; Novalog 14 u qAM, 14 units lunch, 22u qPM. - Will increase dinner Novalog to 24 units and breakfast dose to 16 units. Goal for the Day: continued bleed free countdown, complete magnesium, continue diabetes management. Zee Puckett MD PGY3 MF attending note I saw and evaluated the patient with the team on multidisciplinary rounds. I agree with the findings and the plan of care as documented in the note above. The patient reports feeling well. She deniescontractions, leaking of fluid or bleeding. She reports good activity. My physical exam confirms and/or revises the resident's exam. Temp: [36.6 ??C (97.9 ??F)-36.8 ??C (98.2 ??F)] Heart Rate: [88-92] Resp: [16-18] BP: (102-124)/(58-74) SpO2: [99 %-100 %] Nonstress test: Documented elsewhere Abdomen: gravid, soft, nontender Ext: no edema Impression: Third trimester bleeding without concern for active abruption, labor or PROM testing has been reassuring GDM A2 well controlled Plan: Continue hospitalization for and maternal safety and ongoing assessment regarding need for delivery. Nonstress test Insulin titration Lorri Valles MD * Griselda Hampton MD - 02/01/2015 4:26 PM EDT Antepartum Progress Note Nonstress Test, Fetus A NST Start Time: 1552 HR (beats/min): 150 bpm Variability: moderate Accelerations: present Decelerations: None Contraction Frequency (min): irritable Nonstress Test Interpretation: Reactive > 32 week Overall Impression: Reassuring for gestational age Comments: None Hermilo Puckett MD PGY-3 I personally reviewed the FHR Tracing and agree with the Resident???s interpretation. Griselda Hampton MD * Lorri Valles MD - 02/01/2015 1:30 PM EDT Obstetrical Interdisciplinary Antepartum Progress Note Patient ID: 29 y.o. female at 32w3d gestation, now HD#12, bleed-free day #4 admitted for presumed placental abruption. otherwise complicated by GDMA2 on insulin, obesity, h/o CS x2,and h/o SAB and D&C x2. Now betamethasone and magnesium complete. 24 Hour Events - No issues - NST reactive yesterday. Subjective: Review of Systems: otherwise negative Physical Exam Last value Range last 24 hrs Temperature Temp: 36.5 ??C (97.7 ??F) Temp: [36.5 ??C (97.7 ??F)] Heart Rate Heart Rate: 108 Heart Rate: [80-108] Blood Pressure BP: 103/67 mmHg BP: (77-112)/(35-70) Respiratory Rate Resp: 16 Resp: [16-18] SpO2 SpO2: 97 % SpO2: [97 %-99 %] Gen: appears well, in no acute distress CV: RRR Resp: CTAB Abd: soft, symmetric, nontender, gravid Uterus: soft, nontender Extremities: symmetric, nontender, no edema Heart Rate Interpretation: NST reactive yesterday, repeat pending today Results for MARTINEZ RICHARDSON ( ) as of 02/01/2015 08:32 01/31/2015 06:36 01/31/2015 09:32 01/31/2015 14:09 01/31/2015 19:04 02/01/2015 06:58 POC Glucose 87 150 144 151 85 Recent Labs 01/27/15 1045 WBC 9.7 HGB 12.0 HCT 36.5 PLATELET 177 Recent Labs 01/27/15 1045 CREATININE 0.53* MAGNESIUM 1.25* Most Recent Ultrasound 01/21/2015: Cephalic, anterior placenta, BRIDGET 16.3, EFW 1898g (92%ile), no u/s evidence of abruption Assessment & Plan: 29 y.o. female at 32w3d gestation, HD#12, bleed-free day #4 admittedfor presumed placental abruption. otherwise complicated by GDMA2 on insulin, obesity, h/oCS x2, and h/o SAB and D&C x2. Placental Abruption: Bleeding and uterine irritability consistent with abruption - continue hospitalization to follow bleeding until resolved/bleed free x7 days. -Presentation: cephalic - Status: reassuring surveillance: NST once daily GBS Management: None Required Steroid status: Betamethasone complete 01/21, magnesium complete for neuroprotection complete 01/28 Delivery Indications: non reassuring status and maternal deterioration Delivery Plan: Repeat section (history of LTCS x2). She desires BTL at the time of delivery (consented) Consultations: neonatology Type and screen active through 02/01. Additional issues: GDMA2. Increasing insulin needs this admission, but good glucose control with current regimen. Willcontinue to increase NPH and Novalog as appropriate for glucose control of <100 fasting and 140 pp. Will increase Novalog dose. . -Current insulin regimen - NPH 20 u qAM and 18 u qPM; Novalog 14 u qAM, 14 units lunch, 22u qPM. - Will increase dinner Novalog to 22 units. Goal for the Day: continued bleed free countdown, complete magnesium, continue diabetes management. Zee Puckett MD PGY3 MFM attending note I saw and evaluated the patient. I agree with the findings and the plan of care as documented in Dr. Puckett's note. The patient reports feeling well. She denies contractions, leaking of fluid or bleeding. She reports good activity. My physical exam confirms and/or revises Dr. Puckett's exam. Temp: [36.5 ??C (97.7 ??F)] Heart Rate: [80-108] Resp: [16-18] BP: (77-112)/(35-70) SpO2: [97 %-99 %] Nonstress test: Documented elsewhere Abdomen: gravid, soft, nontender Ext: no edema Impression: 32 3/7 weeks here with presumed chronic abruption. She has been without bleeding for 4 days. The testing has been reassuring GDMA2 in adequate control Plan: Nonstress test Continue FSBS, may need insulin increase tomorrow Lorri Valles MD * Belen Williamson - 02/01/2015 1:19 PM EDT Geek [employer] Agent Encounter Note Patient Name: Martinez Richardson : [id number] MR#: [id number] Admit Date: 01/20/2015 4:44 PM Hospital Day 12 days Narrative: Initial visit with pt while rounding on BP. Assessment: Pt was open to visit, and introduced this remote mortgage underwriter to her son and mother who were also present visiting at this time. We briefly spoke about ingredient handler services and pt reflected on her extended unexpected BP hospitalization. She affirmed that she feels she is coping well. She identifies as Oriental Orthodox and she and her kids talk about their Friday School experiences each week. She does not feel that she has any specific spiritual care needs at this time. Intervention and Outcome: Intro to ingredient handler services. Offer of spiritual care support and provided contact info. Pt offeredappreciation for this and is aware of ongoing support available, should she desire. Follow-up: Geek [employer] Agent remains available for follow-up visit for spiritual care support. Time in Direct Care: 5 minutes Belen Williamson 02/01/2015 * Griselda Hampton MD - 02/01/2015 12:30 PM EDT Nonstress Test, Fetus A NST Start Time: 0947 (02/01/15 162) HR (beats/min): 150 (02/01/15 162) Variability: moderate (amplitude range 6 to 25 bpm) (02/01/15 162) Accelerations: present (02/01/15 162) Decelerations: variable (02/01/15 162) Contraction Frequency (min): none (02/01/15 162) Nonstress Test Interpretation: Reactive, >32 weeks: two 15 bpm accelerations lasting 15 seconds (02/01/15 162) Overall Impression: Reassuring for gestational age (01/31/15 1435) Comments: variable contraction at 0910 to 110 bpm. Will repeat NST in the afternoon. (02/01/15 162) Hermilo Puckett MD PGY-3 I personally reviewed the FHR Tracing and agree with the Resident???s interpretation. Griselda Hampton MD * Zee Puckett MD - 01/31/2015 2:38 PM EDT Nonstress Test, Fetus A NST Start Time: 1044 (01/31/15 1435) HR (beats/min): 155 (01/31/15 1435) Variability: moderate (amplitude range 6 to 25 bpm) (01/31/15 1435) Accelerations: present (01/31/15 1435) Decelerations: none (01/31/15 1435) Contraction Frequency (min): none traced (01/31/15 1105) Nonstress Test Interpretation: Reactive, >32 weeks: two 15 bpm accelerations lasting 15 seconds (01/31/15 1435) Overall Impression: Reassuring for gestational age (01/31/15 1435) Hermilo Puckett MD PGY-3 Associated attestation - Sanju Marcos MD - 01/31/2015 5:14 PM EDT I personally reviewed and interpreted this NST. Sanju Marcos MD * Lorri Valles MD - 01/31/2015 10:29 AM EDT Obstetrical Interdisciplinary Antepartum Progress Note Patient ID: 29 y.o. female at 32w2d gestation, now HD#11, bleed-free day #3 admitted for presumed placental abruption. otherwise complicated by GDMA2 on insulin, obesity, h/o CS x2,and h/o SAB and D&C x2. Now betamethasone and magnesium complete. 24 Hour Events - c/o rust colored discharge this AM. Subjective: No complaints other than some brown discharge upon ambulating to the restroom. Denies contractions. Feeling active movement, denies loss of fluid. Review of Systems: otherwise negative Physical Exam Last value Range last 24 hrs Temperature Temp: 36.8 ??C (98.2 ??F) Temp: [36.6 ??C (97.9 ??F)-36.8 ??C (98.2 ??F)] Heart Rate Heart Rate: 92 Heart Rate: [91-102] Blood Pressure BP: 106/61 mmHg BP: (106-114)/(61-66) Respiratory Rate Resp: 18 Resp: [18] SpO2 SpO2: 97 % SpO2: [97 %-100 %] Gen: appears well, in no acute distress CV: RRR Resp: CTAB Abd: soft, symmetric, nontender, gravid Uterus: soft, nontender Extremities: symmetric, nontender, no edema Heart Rate Interpretation: NST reactive yesterday, repeat pending today Results for MARTINEZ RICHARDSON ( ) as of 01/31/2015 10:30 01/30/2015 06:55 01/30/2015 10:09 01/30/2015 15:16 01/30/2015 20:12 01/31/2015 06:36 POC Glucose 105 161 121 120 87 Recent Labs 01/27/15 1045 WBC 9.7 HGB 12.0 HCT 36.5 PLATELET 177 Recent Labs 01/27/15 1045 CREATININE 0.53* MAGNESIUM 1.25* Most Recent Ultrasound 01/21/2015: Cephalic, anterior placenta, BRIDGET 16.3, EFW 1898g (92%ile), no u/s evidence of abruption Assessment & Plan: 29 y.o. female at 32w2d gestation, HD#12, bleed-free day #3 admittedfor presumed placental abruption. otherwise complicated by GDMA2 on insulin, obesity, h/oCS x2, and h/o SAB and D&C x2. Placental Abruption: Bleeding and uterine irritability consistent with abruption - continue hospitalization to follow bleeding until resolved/bleed free x7 days. Today is bleed-free day #2 -Presentation: cephalic - Status: reassuring surveillance: NST once daily GBS Management: None Required Steroid status: Betamethasone complete 01/21, magnesium complete for neuroprotection complete 01/28 Delivery Indications: non reassuring status and maternal deterioration Delivery Plan: Repeat section (history of LTCS x2). She desires BTL at the time of delivery (consented) Consultations: neonatology Type and screen active through 02/01. Additional issues: GDMA2. Increasing insulin needs this admission, but good glucose control with current regimen. Improved now with increase of pm NPH and novolog. Improved postprandial blood sugars except for dinner. Will increase Novalog dose. . -Current insulin regimen - NPH 20 u qAM and 18 u qPM; Novalog 14 u qAM, 14 units lunch, 20u qPM. - Will increase dinner Novalog to 22 units. Goal for the Day: continued bleed free countdown, complete magnesium, continue diabetes management. Zee Puckett MD PGY3 MFM attending note I saw and evaluated the patient with the team on multidisciplinary rounds. I agree with the findings and the plan of care as documented in the note above. The patient reports feeling well. She deniescontractions, leaking of fluid or red bleeding. She did have some maroon colored discharge. She reports good activity. My physical exam confirms and/or revises the resident's exam. Temp: [36.6 ??C (97.9 ??F)-36.8 ??C (98.2 ??F)] Heart Rate: [91-92] Resp: [18] BP: (106-109)/(61-66) SpO2: [97 %-98 %] Nonstress test: Documented elsewhere Abdomen: gravid, soft, nontender Ext: no edema Impression: Third trimester bleeding - presumed limited abruption Reassuring testing to date GDMA2(insulin) Previous Desires sterilization Plan: Continue hospitalization for and maternal safety and ongoing assessment regarding need for delivery. Consider discharge if 7 days without bleeding Will be delivered by section Nonstress test Increase insulin Lorri Valles MD * Adina Calle RN - 01/30/2015 12:13 PM EDT Care Management: Progress note S/O: Pt recommended to be on FMLA for duration of through 6 weeks . Pt requestscompletion of MADELINE/FMLA paperwork A/P: Paperwork completed and faxed to [facility] [place] Adina Calle [employer], [facility] * Zee Puckett MD - 01/30/2015 10:55 AM EDT Nonstress Test, Fetus A NST Start Time: 933 (01/30/15 1054) HR (beats/min): 145 (01/30/15 1054) Variability: moderate (amplitude range 6 to 25 bpm) (01/30/15 1054) Accelerations: present (01/30/15 1054) Decelerations: none (01/30/15 105) Contraction Frequency (min): single (01/30/15 1018) Nonstress Test Interpretation: Reactive, >32 weeks: two 15 bpm accelerations lasting 15 seconds (01/30/15 1054) Overall Impression: Reassuring for gestational age (01/30/15 1054) Hermilo Puckett MD PGY-3 Associated attestation - Yesenia Donahue MD - 01/30/2015 12:42 PM EDT I personally reviewed the FHR Tracing and agree with the Resident???s interpretation. Yesenia Donahue MD * Lorri Valles MD - 01/30/2015 10:30 AM EDT Obstetrical Interdisciplinary Antepartum Progress Note Patient ID: 29 y.o. female at 32w1d gestation, now HD#11, bleed-free day #2 admitted for presumed placental abruption. otherwise complicated by GDMA2 on insulin, obesity, h/o CS x2,and h/o SAB and D&C x2. Now betamethasone and magnesium complete. 24 Hour Events - None Subjective: No complaints. She has not noted bleeding or contractions today. Feeling active movement, denies loss of fluid. She reports she is trying to correct her increased postprandial breakfast blood glucose with decreased carb intake. Review of Systems: otherwise negative Physical Exam Last value Range last 24 hrs Temperature Temp: 36.6 ??C (97.9 ??F) Temp: [36.5 ??C (97.7 ??F)-36.6 ??C (97.9 ??F)] Heart Rate Heart Rate: 83 Heart Rate: [83-106] Blood Pressure BP: 101/66 mmHg BP: (101-119)/(61-79) Respiratory Rate Resp: 18 Resp: [18] SpO2 SpO2: 99 % SpO2: [99 %-100 %] Gen: appears well, in no acute distress CV: RRR Resp: CTAB Abd: soft, symmetric, nontender, gravid Uterus: soft, nontender Extremities: symmetric, nontender, no edema Heart Rate Interpretation: NST reactive yesterday, repeat pending today Results for MARTINEZ RICHARDSON ( ) as of 01/30/2015 10:31 01/29/2015 06:07 01/29/2015 10:04 01/29/2015 14:17 01/29/2015 19:25 01/30/2015 06:55 POC Glucose 93 150 154 146 105 Recent Labs 01/27/15 1045 WBC 9.7 HGB 12.0 HCT 36.5 PLATELET 177 Recent Labs 01/27/15 1045 CREATININE 0.53* MAGNESIUM 1.25* Most Recent Ultrasound 01/21/2015: Cephalic, anterior placenta, BRIDGET 16.3, EFW 1898g (92%ile), no u/s evidence of abruption Assessment & Plan: 29 y.o. female at 32w1d gestation, HD#11, bleed-free day #2 admittedfor presumed placental abruption. otherwise complicated by GDMA2 on insulin, obesity, h/oCS x2, and h/o SAB and D&C x2. Placental Abruption: Bleeding and uterine irritability consistent with abruption - continue hospitalization to follow bleeding until resolved/bleed free x7 days. Today is bleed-free day #2 -Presentation: cephalic - Status: reassuring surveillance: NST once daily GBS Management: None Required Steroid status: Betamethasone complete 01/21, magnesium complete for neuroprotection complete 3 Delivery Indications: non reassuring status and maternal deterioration Delivery Plan: Repeat section (history of LTCS x2). She desires BTL at the time of delivery (consented) Consultations: neonatology Type and screen active through 01/29. Additional issues: GDMA2. Increasing insulin needs this admission, but good glucose control with current regimen. Improved now with increase of pm NPH and novolog. Improved postprandial blood sugars in afternoon, will try to correct am with better breakfast choices. -Current insulin regimen - NPH 16 u qAM and 14 u qPM; Novalog 12 u qAM, 18 u qPM. - Will increase NPH to 20 AM and 18 PM, add lunch coverage of Novalog 12 units, and increase breakfast and dinner to 14 and 20 respectively. Goal for the Day: continued bleed free countdown, complete magnesium, continue diabetes management. Zee Puckett MD PGY3 MFM attending note I saw and evaluated the patient with the team on multidisciplinary rounds. I agree with the findings and the plan of care as documented in the note above. The patient reports feeling well. She deniescontractions, leaking of fluid or bleeding. She reports good activity. My physical exam confirms and/or revises the resident's exam. Temp: [36.5 ??C (97.7 ??F)-36.6 ??C (97.9 ??F)] Heart Rate: [83-106] Resp: [18] BP: (101-114)/(61-79) SpO2: [99 %-100 %] Nonstress test: Documented elsewhere Abdomen: gravid, soft, nontender Ext: no edema Impression: Third trimester bleeding from presumed abruption GDMA2 will need more insulin Previous section Plan: Continue hospitalization for and maternal safety and ongoing assessment regarding need for delivery at least until 7 days without bleeding Nonstress test Increase insulin Lorri Valles MD * Yvonne Chung MD - 01/29/2015 10:44 AM EDT Nonstress Test, Fetus A NST Start Time: 1024 (01/29/15 1042) HR (beats/min): 140 (01/29/15 1042) Variability: moderate (amplitude range 6 to 25 bpm) (01/29/15 1042) Accelerations: present (01/29/15 1042) Decelerations: none (01/29/15 1042) Contraction Frequency (min): None (01/29/15 1042) Nonstress Test Interpretation: Reactive, >32 weeks: two 15 bpm accelerations lasting 15 seconds (01/29/15 1042) Overall Impression: Reassuring for gestational age (01/27/15 2100) Reactive and reassuring. Ailyn Brand MD I personally reviewed and interpreted this NST. * Janna Oliva RN - 01/29/2015 9:19 AM EDT 0800 Pt awake, in bed. States she slept well. Denies CTX or LOF. Reports scant amount VB - pink blood on toilet paper when wipes. Reports movement. 1420 Pt reports no changes. Visiting with family. 1702 Pt reports no changes. Heading to the cafeteria for dinner with family. 1808 Pt reports cafeteria was closed. She has had half a sandwich and ordered a dinner tray at 1745. No sx of hypoglycemia. * Ailyn Brand MD - 01/29/2015 7:57 AM EDT Obstetrical Interdisciplinary Antepartum Progress Note Patient ID: 29 y.o. female at 32w0d gestation, now HD#10, bleed-free day #1 admitted for presumed placental abruption. otherwise complicated by GDMA2 on insulin, obesity, h/o CS x2,and h/o SAB and D&C x2. Now betamethasone and magnesium complete. 24 Hour Events - bright red spotting yesterday, not continued - no contractions Subjective: The patient has no complaints this morning. She has not noted bleeding or contractions today. Feeling active movement, denies loss of fluid. She reports she is trying to correct herincreased postprandial breakfast blood glucose with decreased carb intake. Review of Systems: otherwise negative Physical Exam Last value Range last 24 hrs Temperature Temp: 36.8 ??C (98.2 ??F) Temp: [36.6 ??C (97.9 ??F)-36.8 ??C (98.2 ??F)] Heart Rate Heart Rate: 77 Heart Rate: [77-96] Blood Pressure BP: 91/43 mmHg (right side) BP: (91-116)/(43-73) Respiratory Rate Resp: 18 Resp: [18] SpO2 SpO2: 98 % SpO2: [97 %-100 %] Gen: appears well, in no acute distress Abd: soft, symmetric, nontender, gravid Uterus: soft, nontender Extremities: symmetric, nontender, no edema Heart Rate Interpretation: NST reactive yesterday, repeat pending today Results for MARTINEZ RICHARDSON ( ) as of 01/29/2015 07:57 Ref. Range 01/28/2015 10:24 01/28/2015 14:41 01/28/2015 19:09 01/29/2015 06:07 POC Glucose Latest Range: 60-199 mg/dL 177 149 123 93 Recent Labs 01/27/15 1045 WBC 9.7 HGB 12.0 HCT 36.5 PLATELET 177 Recent Labs 01/27/15 1045 CREATININE 0.53* MAGNESIUM 1.25* Most Recent Ultrasound 01/21/2015: Cephalic, anterior placenta, BRIDGET 16.3, EFW 1898g (92%ile), no u/s evidence of abruption Assessment & Plan: 29 y.o. female at 32w0d gestation, HD#10, bleed-free day #1 admittedfor presumed placental abruption. otherwise complicated by GDMA2 on insulin, obesity, h/oCS x2, and h/o SAB and D&C x2. Placental Abruption: Bleeding and uterine irritability consistent with abruption - continue hospitalization to follow bleeding until resolved/bleed free x7 days. Today is bleed-free day #1 -Presentation: cephalic - Status: reassuring surveillance: NST once daily GBS Management: None Required Steroid status: Betamethasone complete 01/21, magnesium complete for neuroprotection complete 01/28 Delivery Indications: non reassuring status and maternal deterioration Delivery Plan: Repeat section (history of LTCS x2). She desires BTL at the time of delivery (consented) Consultations: neonatology Type and screen active through 01/29. Additional issues: GDMA2. Increasing insulin needs this admission, but good glucose control with current regimen. Improved now with increase of pm NPH and novolog. Improved postprandial blood sugars in afternoon, will try to correct am with better breakfast choices. -Current insulin regimen - NPH 16 u qAM and 14 u qPM; Novalog 12 u qAM, 18 u qPM. - add insulin sliding scale for correction and will make dose adjustments as needed Goal for the Day: continued bleed free countdown, complete magnesium, continue diabetes management. Ailyn Brand MD PGY4 Associated attestation - Vinicius Godinez MD - 01/31/2015 11:46 AM EDT I have seen and examined the patient, providing negrete components as outlined below. I have reviewed the resident???s above note. * Janna Oliva RN - 01/28/2015 3:06 PM EST 0800 Pt denies LOF, CTX or VB. She reports movement. Instructed to call out with changes. 1200 Pt may take shower per MD Burnham. 1500 Pt reports scant amount pink blood on toilet paper with last trip to the bathroom. MD Godinez and MD Yañez aware. * Janna Oliva RN - 01/28/2015 2:22 PM EST 01/28/15 1048 Uterine Activity Assessment Method TOCO (external tocotransducer) Contraction Frequency (min) none Uterine Resting Tone soft by palpation Assessment Movement active Mode continuous external HR (beats/min) 145 Variability moderate (amplitude range 6 to 25 bpm) Accelerations present Decelerations variable MD Burnham has viewed strip. * Cyrus Burnham MD - 01/28/2015 11:18 AM EST Nonstress Test, Fetus A NST Start Time: 0954 (01/28/151113) HR (beats/min): 145 (01/28/15 111) Variability: moderate (amplitude range 6 to 25 bpm) (01/28/15 111) Accelerations: present (to 180) (01/28/15 111) Decelerations: none (01/28/151113) Contraction Frequency (min): denies (01/28/15 0800) Nonstress Test Interpretation: Reactive <32 week: two 10 bpm accelerations lasting 10 seconds (01/27/152099) Overall Impression: Reassuring for gestational age (01/27/152099) Cyrus Burnham MD PGY4 Associated attestation - Vinicius Godinez MD - 01/28/2015 8:02 PM EST I was the attending physician supervising the resident in the above care and I was present with theresident for the entire procedure. * Cyrus Burnham MD - 01/28/2015 7:41 AM EST Obstetrical Interdisciplinary Antepartum Progress Note Patient ID: 29 y.o. female at 31w6d gestation, now HD#9, bleed-free day #1 admitted for presumed placental abruption. otherwise complicated by GDMA2 on insulin, obesity, h/o CS x2, and h/o SAB and D&C x2. Now betamethasone and magnesium complete. 24 Hour Events - no bleeding or contractions. - magnesium completed for neuroprotection x24h at 1g/hr Subjective: The patient has no complaints this morning. She has not noted bleeding or contractions today. Feeling active movement, denies loss of fluid. Review of Systems: otherwise negative Physical Exam Last value Range last 24 hrs Temperature Temp: 36.8 ??C (98.2 ??F) Temp: [36.8 ??C (98.2 ??F)] Heart Rate Heart Rate: 77 Heart Rate: [77-108] Blood Pressure BP: 84/47 mmHg BP: (84-117)/(46-76) Respiratory Rate Resp: 16 Resp: [16-18] SpO2 SpO2: 100 % SpO2: [98 %-100 %] Gen: appears well, in no acute distress Abd: soft, symmetric, nontender, gravid Uterus: soft, nontender Extremities: symmetric, nontender, no edema Heart Rate Interpretation: NST reactive yesterday, repeat pending today Results for MARTINEZ RICHARDSON ( ) as of 01/28/2015 10:39 Ref. Range 01/27/2015 11:19 01/27/2015 14:35 01/27/2015 19:37 01/28/2015 08:13 POC Glucose Latest Range: 60-199 mg/dL 135 129 131 89 Recent Labs 01/27/15 1045 WBC 9.7 HGB 12.0 HCT 36.5 PLATELET 177 Recent Labs 01/27/15 1045 CREATININE 0.53* MAGNESIUM 1.25* Most Recent Ultrasound 01/21/2015: Cephalic, anterior placenta, BRIDGET 16.3, EFW 1898g (92%ile), no u/s evidence of abruption Assessment & Plan: 29 y.o. female at 31w6d gestation, HD#9, bleed-free day #1 admitted for presumed placental abruption. otherwise complicated by GDMA2 on insulin, obesity, h/o CS x2, and h/o SAB and D&C x2. Placental Abruption: Bleeding and uterine irritability consistent with abruption - continue hospitalization to follow bleeding until resolved/bleed free x7 days. Today is bleed-free day #1 -Presentation: cephalic - Status: reassuring surveillance: NST once daily GBS Management: None Required Steroid status: Betamethasone complete 01/21, magnesium complete for neuroprotection complete 01/28 Delivery Indications: non reassuring status and maternal deterioration Delivery Plan: Repeat section (history of LTCS x2). She desires BTL at the time of delivery. Consultations: neonatology Type and screen active through 01/29. Additional issues: GDMA2. Increasing insulin needs this admission, but good glucose control with current regimen. Improved now with increase of pm NPH and novolog. Improved postprandial blood sugars. -Current insulin regimen - NPH 16 u qAM and 14 u qPM; Novalog 12 u qAM, 18 u qPM. - add insulin sliding scale for correction and will make dose adjustments as needed Goal for the Day: continued bleed free countdown, complete magnesium, continue diabetes management. This note was written by Dr. Ailyn Brand and myself and completed by myself during interdisciplinary rounds Cyrus Burnham MD PGY4 Associated attestation - Vinicius Godinez MD - 01/28/2015 8:19 PM EST I have seen and examined the patient, providing negrete components as outlined below. I have reviewed the resident???s above note; my evaluation of the patient is below: 31 6/7 weeks chronic abruption, A2GDM. FM felt, no LOF, scant bleeding or chuyita. BP 111/73 Pulse 96 Temp(Src) 36.8 ??C (98.2 ??F) (Oral) Resp 18 Ht 170.2 cm (5' 7) Wt 97.5 kg (214 lb 15.2 oz) BMI 33.66 kg/m2 SpO2 98% Abdomen soft, NT I/R 31 6/7 weeks chronic abruption NST QD S/p BMZ S/p MgSO4 Titrate insulin * Yvonne Chung MD - 01/27/2015 9:01 PM EST Nonstress Test, Fetus A NST Start Time: 1124 (01/27/152099) HR (beats/min): 150 (01/27/152099) Variability: moderate (amplitude range 6 to 25 bpm) (01/27/152099) Accelerations: present (01/27/152099) Decelerations: none (01/27/152099) Contraction Frequency (min): 0 (01/27/15 1200) Nonstress Test Interpretation: Reactive <32 week: two 10 bpm accelerations lasting 10 seconds (01/27/152099) Overall Impression: Reassuring for gestational age (01/27/152099) Ailyn Brand MD I personally reviewed and interpreted this NST. * Tavia Garg - 01/27/2015 1:08 PM EST Nutrition Services - Education Note Martinez Richardson : 1985 AGE: 29 y.o. Patient Active Problem List Diagnosis Date Noted ??? Supervision of high risk in second trimester 09/29/2014 ??? Gestational diabetes 09/29/2014 Reason for Nutrition Intervention: Hospital Day 8 Diet Order: Gestational Appetite: Good Food allergies: NKFA Chewing/Swallowing difficulty: none Ht Readings from Last 3 Encounters: 01/20/15 170.2 cm (5' 7) 10/31/14 170 cm (5' 6.93) Wt Readings from Last 3 Encounters: 01/26/15 97.5 kg (214 lb 15.2 oz) 01/16/15 97.07 kg (214 lb) 01/02/15 96.163 kg (212 lb) Body mass index is 33.66 kg/(m^2). Vitamins/Minerals: MVI noted. Assessment: Pt reports sufficient appetite with no n/v with po intake. Patient understands current diet with no questions, concerns, or issues at this time. Will continue to monitor as needed. Nutrition Plan: Continue current diet. Monitor weight gain w/ . Support and encouragement provided. Nutrition services to follow weekly thru hospital course unless consulted in the interim. Tavia Garg * Christianne Sandoval RN - 01/27/2015 11:39 AM EST 0730: Report received from Bridget Perez RN. 0900: No complaints, denies contractions, denies bleeding. Call fry within reach. Patient has ordered breakfast. 1115: One hour post prandial blood sugar 135. 1430: One hour post prandial blood sugar 129. YS * Zia Gan MD - 01/27/2015 5:27 AM EST Obstetrical Interdisciplinary Antepartum Progress Note Patient ID: 29 y.o. female at 31w5d gestation, now HD#8, bleed-free day #0 admitted for presumed placental abruption. otherwise complicated by GDMA2 on insulin, obesity, h/o CS x2, and h/o SAB and D&C x2. Now betamethasone complete. 24 Hour Events - developed uncomfortable contractions around 2100, magnesium started for neuroprotection. - episode of light bleeding last evening. Subjective: She feels like she has a hangover. She had no continued bleeding this morning. She reports her contractions are completely gone. She feels like she has been working out in that all her muscles hurt. Review of Systems Ambulating, tolerating carb control diet, voiding, and having regular BM. Denies cough or cold symptoms, chest pain, shortness of breath, nausea, vomiting, headache. All systems are otherwise reviewed and are negative. Physical Exam Last value Range last 24 hrs Temperature Temp: 36.5 ??C (97.7 ??F) Temp: [36.5 ??C (97.7 ??F)-37.1 ??C (98.8 ??F)] Heart Rate Heart Rate: 96 Heart Rate: [89-103] Blood Pressure BP: 101/60 mmHg BP: (81-127)/(42-88) Respiratory Rate Resp: 16 Resp: [16-20] SpO2 SpO2: 98 % SpO2: [95 %-100 %] Gen: appears well, flushed, sitting up, engages with the team, in no acute distress Cardiac: RRR, S1, S2, no rub/gallop/murmur Pulm: CTAB, no rales/wheeze/rhonchi Abd: soft, symmetric, nontender, gravid Extremities: symmetric, nontender, no edema, reflexes absent. Heart Rate Interpretation: NST reactive yesterday, repeat pending today Results for MARTINEZ RICHARDSON ( ) as of 01/27/2015 10:05 01/26/2015 08:37 01/26/2015 09:41 01/26/2015 13:35 01/26/2015 19:27 01/27/2015 08:15 POC Glucose 126 154 134 134 87 Most Recent Ultrasound 01/21/2015: Cephalic, anterior placenta, BRIDGET 16.3, EFW 1898g (92%ile), no u/s evidence of abruption Assessment & Plan: 29 y.o. female at 31w5d gestation, HD#8, bleed-free day #0 admitted for presumed placental abruption. otherwise complicated by GDMA2 on insulin, obesity, h/o CS x2, and h/o SAB and D&C x2. As she is on magnesium with absent reflexes will order a magnesium level. Will order full panel of CBC, Creatinine and AST as well. Placental Abruption: Bleeding and uterine irritability consistent with abruption - continue hospitalization to follow bleeding until resolved/bleed free x7 days. -Presentation: cephalic - Status: reassuring surveillance: NST once daily GBS Management: None Required Steroid status: Betamethasone complete 01/21, magnesium for neuroprotection started 01/26 at 2330. Delivery Indications: non reassuring status and maternal deterioration Delivery Plan: Repeat section (history of LTCS x2). She desires BTL at the time of delivery. Consultations: neonatology Type and screen active through 01/29. Additional issues: GDMA2. Increasing insulin needs this admission, but good glucose control with current regimen. Improved now with increase of pm NPH last night. Improved postprandial blood sugars. -Current insulin regimen - NPH 16 u qAM and 14 u qPM; Novalog 12 u qAM, 18 u qPM. Goal for the Day: continued bleed free countdown, complete magnesium, continue diabetes management. This note was written by Dr. Zee Puckett and myself and completed during interdisciplinary rounds with MFM, solar sales representative and assessor , CRC, charge attendant and bedside RN. Signed: Ailyn Brand MD, PGY4 01/27/2015 MFM Attending Note I saw the patient on interdisciplinary rounds with the team and participated in her review of systems, HPI and physical exam, I also reviewed her chart. I agree with the assessment and plan above. Given her most recent episode of bleeding, which is now her fourth, I anticipate she will require veryprolonged hospitalization. Signed Zia Gan MD 01/27/2015 * Gregorio Ritter MD - 01/27/2015 2:17 AM EST OB Progress Note Martinez continued to complain of regular painful of painful contractions every 2- 4 minutes. She had no further bleeding, no leaking of fluid and had good movement. She accepted ambien as well ascervical examination. Patient Vitals for the past 8 hrs: BP Temp Temp src Pulse Resp SpO2 01/27/15 0507 91/42 mmHg - - 102 18 97 % 01/27/15 0404 94/51 mmHg - - 100 18 99 % 01/27/15 0302 94/57 mmHg - - 94 18 100 % 01/27/15 0140 113/73 mmHg - - 91 20 - 01/27/15 0045 105/88 mmHg - - 91 18 100 % 01/27/15 0000 106/65 mmHg - - 89 20 99 % 01/26/15 2346 99/73 mmHg - - 94 20 99 % 01/26/15 2327 127/77 mmHg - - 96 18 100 % 01/26/15 2243 113/67 mmHg 36.5 ??C (97.7 ??F) Oral 103 18 100 % Abd: non-tender, contractions palpating moderate Cervix: 0/0/-4. No bleeding appreciated, no fluid appreciated. FHR Baseline 150, moderate variability, accelerations present, no decelerations [place]: irregular 2-5 minutes 29 y/o at 31w4d admitted with chronic placental abruption, no HD#7, BFD#0, complaining of painful contractions in the setting of two previous deliveries, not in labor. Magnesium started for neuroprotection. Patient slept for approximately 3 hours, over which contractions steadily ab ated. Patient taken off the monitor 0530. Will continue to monitor. GREGORIO RITTER MD PGY-1 * Tiffanie Rader RN - 01/26/2015 11:16 PM EST 2235: Report received from ROSARIO Perez. 2244: SVE performed by MD Kandi Puckett. Pt is unchanged at 0/0/high. 2250: Pt up to bathroom to void. Denies bleeding after urination or wiping. 2337: Magnesium infusion initiated starting with 4g bolus. VSS. +2 DTRs. LS clear throughout. Pt reporting pain with contractions 5-6/10 and is unable to find a comfortable position. Pt constantly changing positions trying to get comfortable- EFM frequently adjusted due to position changes. Pt states I hurts in my lower back and my cervix. Pillow support and reposition help given. 0115: Into room to see pt. Pt found to be sobbing on the phone with her . Pt states she is very worried about having a infant but is also so tired with being in so much pain. Pt requesting to speak with MD regarding plan of care. 0130: MD Ritter into room to assess pt. Pt reports feeling no change in frequency of contractions but states they have become more intense. MD Ritter offered Ambien and encouraged rest. 0144: Ambien given. Pt positioned on R-side with pillow support. Lights low and pt encouraged to try to rest. 0207: SVE performed by MD Kandi Leon. Pt is unchanged at 0/0/high. 0400: Pt continues to rest on side in bed. States she is able to fall asleep in between contractions but they wake her up every 5 mins or so. 0515: Pt up to bathroom. Pt report very irregular contractions and the intensity has also decreased. No contractions noted during the 15 minute period while this RN was at bedside. MD Ritter alerted and ok'd for pt to come off EFM. Pt educated to alert staff if contractions increase in intensity and frequency or she has anymore bleeding. Pt verbalized understanding. * Patsy Perez RN - 01/26/2015 11:02 PM EST 1926: During bedside report, pt stated she had some red bleeding on the toilet paper while wiping. Dr. Puckett was notified by Camila Gomez RN and requested pt to be placed on the monitor. 2030: TOCO reading contractions. Went in to assess patient. Patient on the computer. Denied feelingcontractions, but stated her lower back was achy. Pt states she took a nap this afternoon, woke around 1630 and her lower back was achy. She stated she stretched and repositioned herself for comfort.Patient remains on EFM and TOCO. Will continue to monitor. 2129: Pt now breathing with contractions. Drs. Ritter and Rowan notified. Plan of care discussed. Plan to continue to monitor patient. Dr. Donahue requested patient increase her po fluids. Pt provided with water and encouraged to increase po intake. 0: Pt increasingly more uncomfortable. Attempting to reposition herself in bed with contractions. Discussed increasing discomfort with Drs. Puckett and Jose. Plan of care discussed and requested MD team to come assess pt. 2215: Dr. Ritter in to assess patient. Plan to begin magnesium for neuroprotection. 2224: Dr. Puckett in to assess patient. Lolita Chu, clothing trades workers notified of change in patient status. 224: Report and care of pt to Kandi Rader RN. * Zee Puckett MD - 01/26/2015 10:54 PM EST OB Progress Note Martinez is complaining of painful contractions every 2-4 minutes that are a change from previous. She denies any bleeding however did have an episode of a small amount of bleeding earlier this eveningon toilet paper. The contractions initially started around 1630 however she remained comfortable until 2 hours ago when intermittently the contractions were causing her to pause. Denies LOF or abdominal pain. Filed Vitals: 01/26/15 2243 BP: 113/67 Pulse: 103 Temp: 36.5 ??C (97.7 ??F) Resp: 18 Abd: non-tender, no masses palpable, contractions palpating moderate Cervix: closed/long/high, no bleeding appreciated, no fluid appreciated. FHR 150, mod, accelerations present, decels absent [place]: irregular 2-5 minutes 29 y/o at 31w4d admitted with chronic placental abruption, no HD#7, BFD#0, complaining of painful contractions in the setting of two previous deliveries, not in labor. Will continue to monitor fetus continuously, cat 1 FHR. Start Mg for neuroprotection. Betamethasone complete. Consented for c/s and BTL. T&S up to date. Will delivery if in labor or NRFHR. Hermilo Puckett MD PGY-3 Associated attestation - Yesenia Donahue MD - 01/27/2015 7:05 AM EST Martinez is definitely experiencing new painful contractions, worsening over past 6 hours. No increase in bleeding at this time.Will initiate magnesium sulfate for neuroprotection, given increased riskof delivery. Yesenia Donahue MD * Ilana Martinez RN - 01/26/2015 8:33 PM EST Pt denies feeling ctx, reports a mild back ache that she reports started around [address] Ritter reviewed EFM strip, plans to continue monitoring. * Yesenia Donahue MD - 01/26/2015 12:45 PM EST 01/26/15 1242 Nonstress Test, Fetus A HR (beats/min) 160 Variability moderate (amplitude range 6 to 25 bpm) Accelerations present Decelerations none Contraction Frequency (min) none Nonstress Test Interpretation Reactive <32 week: two 10 bpm accelerations lasting 10 seconds Overall Impression Reassuring for gestational age NST Times NST Start Time 1039 NST Stop Time 1104 I personally reviewed and interpreted this NST. Yesenia Donahue MD * Zia Gan MD - 01/26/2015 7:12 AM EST Obstetrical Interdisciplinary Antepartum Progress Note Patient ID: 29 y.o. female at 31w4d gestation, now HD#7, bleed-free day #1 admitted for presumed placental abruption. otherwise complicated by GDMA2 on insulin, obesity, h/o CS x2, and h/o SAB and D&C x2. Now betamethasone complete. 24 Hour Events - no further vaginal bleeding - increased morning Novolog to 12 u breakfast Subjective: She reports no ongoing vaginal bleeding, and no contractions. Good movement. She is surprised to find her BG was elevated this morning. She did not have any nighttime snacks. Review of Systems Ambulating, tolerating carb control diet, voiding, and having regular BM. Denies cough or cold symptoms, chest pain, shortness of breath, nausea, vomiting, headache, leg pain. All systems are otherwise reviewed and are negative. Physical Exam Last value Range last 24 hrs Temperature Temp: 37 ??C (98.6 ??F) Temp: [36.9 ??C (98.4 ??F)-37 ??C (98.6 ??F)] Heart Rate Heart Rate: 80 Heart Rate: [76-98] Blood Pressure BP: 92/49 mmHg BP: (85-116)/(43-74) Respiratory Rate Resp: 16 Resp: [16-18] SpO2 SpO2: 99 % SpO2: [97 %-99 %] Gen: appears well, sitting up, engages with the team, in no acute distress Cardiac: RRR, S1, S2, no rub/gallop/murmur Pulm: CTAB, no rales/wheeze/rhonchi Abd: soft, symmetric, nontender, gravid Extremities: symmetric, nontender, no edema Heart Rate Interpretation: NST reactive yesterday, repeat pending today Results for MARTINEZ RICHARDSON ( ) as of 01/26/2015 07:14 01/25/2015 07:06 01/25/2015 09:27 01/25/2015 13:32 01/25/2015 19:38 POC Glucose 100 137 142 105 Am fasting 126. Most Recent Ultrasound 01/21/2015: Cephalic, anterior placenta, BRIDGET 16.3, EFW 1898g (92%ile), no u/s evidence of abruption Assessment & Plan: 29 y.o. female at 31w4d gestation, HD#7, bleed-free day #1 admitted for presumed placental abruption. otherwise complicated by GDMA2 on insulin, obesity, h/o CS x2, and h/o SAB and D&C x2. Placental Abruption: Bleeding and uterine irritability consistent with abruption - continue hospitalization to follow bleeding until resolved/bleed free x7 days. -Presentation: cephalic - Status: reassuring surveillance: NST once daily GBS Management: None Required Steroid status: Betamethasone complete 01/21, magnesium naive Delivery Indications: non reassuring status and maternal deterioration Delivery Plan: Repeat section (history of LTCS x2). She desires BTL at the time of delivery. Consultations: neonatology Type and screen active through 01/26. Additional issues: GDMA2. Increasing insulin needs. - consider increasing nighttime NPH to 12 units -Current insulin regimen - NPH 16 u qAM and 14 u qPM; Novalog 12 u qAM, 18 u qPM. Goal for the Day: continued bleed free countdown, NST, massage This note was written by Dr. Zee Puckett and myself and completed during interdisciplinary rounds with MFM, solar sales representative and assessor MD, CRC, charge attendant and bedside RN. Signed: Ailyn Brand MD, PGY4 01/26/2015 MFM Attending Note I saw the patient on interdisciplinary rounds with the team and participated in her review of systems, HPI and physical exam, I also reviewed her chart. I agree with the assessment and plan above. Signed Zia Gan MD 01/26/2015 * Vinicius Mack MD - 01/25/2015 10:29 PM EST NST Nonstress Test, Fetus A NST Start Time: 0959 (01/25/15 1030) HR (beats/min): 150 (01/25/15 1030) Variability: moderate (amplitude range 6 to 25 bpm) (01/25/15 1030) Accelerations: present (01/25/15 1030) Decelerations: none (01/25/15 1030) Contraction Frequency (min): 1x (01/25/15 1030) Nonstress Test Interpretation: Reactive <32 week: two 10 bpm accelerations lasting 10 seconds (01/25/15 1030) Overall Impression: Reassuring for gestational age (01/25/15 1030) Vinicius Mack MD PGY4 01/25/2015 Associated attestation - Vinicius Godinez MD - 01/28/2015 7:47 PM EST I was the attending physician supervising the resident in the above care and I was present with theresident for the entire procedure. * Zia Gan MD - 01/25/2015 7:39 AM EST Obstetrical Interdisciplinary Antepartum Progress Note Patient ID: 29 y.o. female at 31w3d gestation, now HD#6, bleed-free day #0 admitted for presumed placental abruption. otherwise complicated by GDMA2 on insulin, obesity, h/o CS x2, and h/o SAB and D&C x2. Now betamethasone complete. 24 Hour Events - small amount of bleeding per vagina last night, continued with wiping after urination today. - increased NPH to 16 U and novolog 12 U in AM for postprandials elevated at breakfast Subjective: The patient has no complaints this morning. She reports continued bright red blood uponwiping this morning. She felt some cramping when she started bleeding last night, but she feels it was anxiety related. She is tearful this morning. Her boss brought her some work yesterday, and she feels it will help. It resolved when she stopped crying. The patient reports active movement and denies loss of fluid or contractions. Review of Systems Ambulating, tolerating carb control diet, voiding, and having regular BM. Denies cough or cold symptoms, chest pain, shortness of breath, nausea, vomiting, headache, leg pain. All systems are otherwise reviewed and are negative. Physical Exam Last value Range last 24 hrs Temperature Temp: 36.7 ??C (98.1 ??F) Temp: [36.6 ??C (97.9 ??F)-36.7 ??C (98.1 ??F)] Heart Rate Heart Rate: 94 Heart Rate: [86-97] Blood Pressure BP: 95/51 mmHg BP: (95-125)/(51-79) Respiratory Rate Resp: 18 Resp: [18] SpO2 SpO2: 98 % SpO2: [98 %-99 %] Gen: appears well, sitting up, engages with the team, in no acute distress Cardiac: RRR, S1, S2, no rub/gallop/murmur Pulm: CTAB, no rales/wheeze/rhonchi Abd: soft, symmetric, nontender, gravid Extremities: symmetric, nontender, no edema Heart Rate Interpretation: NST reactive yesterday, repeat pending today Results for MARTINEZ RICHARDSON ( ) as of 01/25/2015 07:40 01/24/2015 06:59 01/24/2015 10:09 01/24/2015 14:23 01/24/2015 19:31 01/25/2015 07:06 POC Glucose 80 158 160 112 100 Most Recent Ultrasound 01/21/2015: Cephalic, anterior placenta, BRIDGET 16.3, EFW 1898g (92%ile), no u/s evidence of abruption Assessment & Plan: 29 y.o. female at 31w3d gestation, HD#6, bleed-free day #0 admitted for presumed placental abruption. otherwise complicated by GDMA2 on insulin, obesity, h/o CS x2, and h/o SAB and D&C x2. Placental Abruption: Bleeding and uterine irritability consistent with abruption - continue hospitalization to follow bleeding until resolved/bleed free x7 days. -Presentation: cephalic - Status: reassuring surveillance: NST once daily GBS Management: None Required Steroid status: Betamethasone complete 01/21, magnesium naive Delivery Indications: non reassuring status and maternal deterioration Delivery Plan: Repeat section (history of LTCS x2) We discussed TOLAC, but placental abruption is a relative contraindication for TOLAC. We would strongly advise her to delivery by repeat section at this time, and she very much agrees. She desires BTL at the time of delivery. Consultations: neonatology Type and screen active. Additional issues: GDMA2. -Increased post breakfast blood sugar, increase am Novalog to 10 u. -Current insulin regimen - NPH 16 u qAM and 10 u qPM; Novalog 12 u qAM, 18 u qPM. Goal for the Day: continued bleed free countdown, NST, massage This note was written by Dr. Zee Puckett and myself and completed during interdisciplinary rounds with MFNikos, solar sales representative and assessor MD, CRC, charge attendant and bedside RN. Signed: Ailyn Brand MD, PGY4 01/25/2015 MFM Attending Note I saw the patient on interdisciplinary rounds with the team and participated in her review of systems, HPI and physical exam, I also reviewed her chart. I agree with the assessment and plan above. Signed Zia Gan MD 01/25/2015 * Rochelle Fatima RN - 01/25/2015 6:26 AM EST To conference rm 2b for AA meeting ok for pt to go via wheelchair per Dr. Ontiveros. * Rochelle Fatima RN - 01/25/2015 12:34 AM EST 0017- pt up to bathroom noted period like cramps light bleeding noticed. Pt placed on monitor. Vsobtained. Dr. Ontiveros notified of pts Pain and bleeding. No further orders at this time. 0050- Pt states not feeling any of the ctx. No Abd pain at this time. Dr. Ontiveros aware. Will continue to monitor. 0120- Dr. Ontiveros reviewed FHR strip ok to remove pt from monitor. No further bleeding or cramping. * Zee Puckett MD - 01/24/2015 4:46 PM EST Nonstress Test, Fetus A NST Start Time: 1130 (01/24/151645) HR (beats/min): 150 (01/24/151645) Variability: moderate (amplitude range 6 to 25 bpm) (01/24/151645) Accelerations: present (01/24/151645) Decelerations: none (01/24/151645) Contraction Frequency (min): none (01/24/15 1230) Nonstress Test Interpretation: Reactive <32 week: two 10 bpm accelerations lasting 10 seconds (01/24/151645) Overall Impression: Reassuring for gestational age (01/24/151645) Hermilo Puckett MD PGY-3 Associated attestation - Sanju Marcos MD - 01/25/2015 10:08 AM EST I personally reviewed and interpreted this NST. Sanju Marcos MD * Adina Calle RN - 01/24/2015 12:17 PM EST Office of Care Management (OCM) / Clinical [facility] (CRC)/ Initial Assessment Discussed patient with Provider Team and in multidisciplinary discharge-planning rounds. Reviewed record and interviewed patient. Introduced/reviewed CRC role and services accepted. REASON for HOSPITALIZATION: Antepartum admission at 31 2/7 weeks gestation with vaginal bleeding, presumed small abruption in setting of septate uterus. PMH : PCOS, Gestational Diabetes, Septate uterus, Anxiety and depression, Prior C/Section x 1 PREVIOUS FUNCTIONAL STATUS: Active, alert, oriented x 3 CURRENT FUNCTIONAL STATUS: Hospitalized for bleed free countdown. SOCIAL / FAMILY SUPPORTS: Martinez is a 29 y.o living with Víctor and 2 older children ages 6 and 4 in [place], [place] ([facility]). 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 She is consented for a Repeat C/Section with Tubal Ligation, and is currently bleed free day # 2/7. ADVANCE DIRECTIVES: None HEALTH /PRESCRIPTION COVERAGE: [facility] CURRENT HOME/COMMUNITY SERVICES/EQUIPMENT: DME: None Home Health Agency: None prior to admission Other: None TEMP RECRUITER REFERRAL: Notified TEMP RECRUITER - for Support/Financial/Medication Assistance; See TEMP RECRUITER notes for further needs. PRIMARY CARE PHYSICIAN: CHANTEL GUEVARA MD R[address] [facility] [id number] POTENTIAL DISCHARGE NEEDS: Dependent on delivered vs undelivered. PATIENT/FAMILY EDUCATION NEEDS: None ANTICIPATED BARRIERS TO DISCHARGE: None (once bleed free) TRANSPORTATION @ D/C: PLAN: CRC will continue to monitor progress, follow for continuity of care and assist with discharge planning while hospitalized. . * Zia Gan MD - 01/24/2015 7:29 AM EST Obstetrical Interdisciplinary Antepartum Progress Note Patient ID: 29 y.o. female at 31w2d gestation, now HD#5, bleed-free day #2 admitted for presumed placental abruption. otherwise complicated by GDMA2 on insulin, obesity, h/o CS x2, and h/o SAB and D&C x2. Now betamethasone complete. 24 Hour Events - No further bleeding - consented for section and signed [facility] TOLAC vs ERCS consent form yesterday. - increased Novolog to 10U with breakfast. Subjective: The patient has no complaints this morning. She reports only brown discharge overnight.The patient reports active movement and denies loss of fluid or contractions. Ambulating, tolerating carb control diet, voiding, and having regular BM. Review of Systems All systems are otherwise reviewed and are negative. Physical Exam Last value Range last 24 hrs Temperature Temp: 36.9 ??C (98.4 ??F) Temp: [36.5 ??C (97.7 ??F)-36.9 ??C (98.4 ??F)] Heart Rate Heart Rate: 88 Heart Rate: [74-90] Blood Pressure BP: 106/71 mmHg BP: (90-114)/(40-72) Respiratory Rate Resp: 16 Resp: [16-20] SpO2 SpO2: 98 % SpO2: [98 %] Gen: appears well, sitting up, engages with the team, in no acute distress Cardiac: RRR, S1, S2, no rub/gallop/murmur Pulm: CTAB, no rales/wheeze/rhonchi Abd: soft, symmetric, nontender, gravid Extremities: symmetric, nontender, no edema Heart Rate Interpretation: NST reactive yesterday, repeat pending today Results for MARTINEZ RICHARDSON ( ) as of 01/24/2015 07:31 Ref. Range 01/23/2015 07:45 01/23/2015 10:25 01/23/2015 14:51 01/23/2015 19:31 01/24/2015 06:59 POC Glucose Latest Range: 60-199 mg/dL 76 164 113 118 80 Most Recent Ultrasound 01/21/2015: Cephalic, anterior placenta, BRIDGET 16.3, EFW 1898g (92%ile), no u/s evidence of abruption Assessment & Plan: 29 y.o. female at 31w2d gestation, HD#5, bleed-free day #2 admitted for presumed placental abruption. otherwise complicated by GDMA2 on insulin, obesity, h/o CS x2, and h/o SAB and D&C x2. Placental Abruption: Bleeding and uterine irritability consistent with abruption - continue hospitalization to follow bleeding until resolved/bleed free x7 days. -Presentation: cephalic - Status: reassuring surveillance: NST once daily GBS Management: None Required Steroid status: Betamethasone complete 01/21, magnesium naive Delivery Indications: non reassuring status and maternal deterioration Delivery Plan: Repeat section (history of LTCS x2) We discussed TOLAC, but placental abruption is a relative contraindication for TOLAC. We would strongly advise her to delivery by repeat section at this time, and she very much agrees. She desires BTL at the time of delivery. Consultations: neonatology Type and screen active. Additional issues: GDMA2. -Increased post breakfast blood sugar, increase am Novalog to 10 u. -Current insulin regimen - NPH 14 u qAM and 10 u qPM; Novalog 10 u qAM, 18 u qPM. Goal for the Day: continued bleed free countdown, NST, sign Federal consent for sterilization. This note was written by Dr. Zee Puckett and myself and completed during interdisciplinary rounds with MFM, solar sales representative and assessor , CRC, charge attendant and bedside RN. Signed: Ailyn Brand MD, PGY4 01/24/2015 MFM Attending Note I saw the patient on interdisciplinary rounds with the team and participated in her review of systems, HPI and physical exam, I also reviewed her chart. I agree with the assessment and plan above. Signed Zia Gan MD 01/24/2015 * Lorri Valles MD - 01/23/2015 5:17 PM EST Nonstress Test, Fetus A NST Start Time: 1308 (01/23/151715) HR (beats/min): 150 (01/23/151715) Variability: moderate (amplitude range 6 to 25 bpm) (01/23/151715) Accelerations: present (01/23/151715) Decelerations: none (01/23/151715) Contraction Frequency (min): irritability, patient movement (01/23/15 1340) Nonstress Test Interpretation: Reactive <32 week: two 10 bpm accelerations lasting 10 seconds (01/23/151715) Overall Impression: Reassuring for gestational age (01/23/151715) Hermilo Puckett MD PGY-3 I personally reviewed the FHR Tracing and agree with Dr. Puckett???s interpretation. Lorri Valles MD * Zia Gan MD - 01/23/2015 7:33 AM EST Obstetrical Interdisciplinary Antepartum Progress Note Patient ID: 29 y.o. female at 31w1d gestation, now HD#4, bleed-free day #1 admitted for presumed placental abruption. otherwise complicated by GDMA2 on insulin, obesity, h/o CS x2, and h/o SAB and D&C x2. Now betamethasone complete. 24 Hour Events - continued without any bleeding, just brown mucous discharge this AM Subjective: The patient has no complaints this morning. She had bright red bleeding yesterday on the toilet tissue, similar to her bleeding at admisison, but only brownish discharge today. The patient reports active movement and denies loss of fluid or contractions. Ambulating, tolerating carb control diet, voiding, and having regular BM. Review of Systems All systems are otherwise reviewed and are negative. Physical Exam Last value Range last 24 hrs Temperature Temp: 36.9 ??C (98.4 ??F) Temp: [36.5 ??C (97.7 ??F)-36.9 ??C (98.4 ??F)] Heart Rate Heart Rate: 94 Heart Rate: [85-94] Blood Pressure BP: 108/74 mmHg BP: (106-115)/(63-74) Respiratory Rate Resp: 20 Resp: [16-20] SpO2 SpO2: -- Gen: appears well, sitting up, engages with the team, in no acute distress Cardiac: RRR, S1, S2, no rub/gallop/murmur Pulm: CTAB, no rales/wheeze/rhonchi Abd: soft, symmetric, nontender, gravid Extremities: symmetric, nontender, no edema Heart Rate Interpretation: NST reactive yesterday, repeat pending today Results for MARTINEZ RICHARDSON ( ) as of 01/23/2015 11:56 01/22/2015 07:34 01/22/2015 09:50 01/22/2015 13:50 01/22/2015 19:27 01/23/2015 07:45 01/23/2015 10:25 POC Glucose 99 142 131 123 76 164 Most Recent Ultrasound 01/21/2015: Cephalic, anterior placenta, BRIDGET 16.3, EFW 1898g (92%ile), no u/s evidence of abruption Assessment & Plan: 29 y.o. female at 31w1d gestation, HD#4, bleed-free day #1 admitted for presumed placental abruption. otherwise complicated by GDMA2 on insulin, obesity, h/o CS x2, and h/o SAB and D&C x2. Placental Abruption: Bleeding and uterine irritability consistent with abruption - continue hospitalization to follow bleeding until resolved/bleed free x7 days. -Presentation: cephalic - Status: reassuring surveillance: NST once daily GBS Management: None Required Steroid status: Betamethasone complete 01/21, magnesium naive Delivery Indications: non reassuring status and maternal deterioration Delivery Plan: Repeat section (history of LTCS x2) We discussed TOLAC, but placental abruption is a relative contraindication for TOLAC. We would strongly advise her to delivery by repeat section at this time, and she very much agrees. She desires BTL at the time of delivery. Consultations: neonatology Type and screen active. Additional issues: GDMA2. -Increased post breakfast blood sugar, increase am Novalog to 10 u. - Continue home insulin regimen - NPH 14 u qAM and 10 u qPM, Novalog 8 u with breakfast and 18 u with dinner. This note was written by Dr. Zee Puckett and myself and completed during interdisciplinary rounds with MFM, solar sales representative and assessor , CRC, charge attendant and bedside RN. Signed: Zee Puckett MD, PGY3 01/23/2015 MFM Attending Note I saw the patient on interdisciplinary rounds with the team and participated in her review of systems, HPI and physical exam, I also reviewed her chart. I agree with the assessment and plan above. Signed Zia Gan MD 01/23/2015 * Rita Bennett MD - 01/22/2015 4:38 PM EST Nonstress Test, Fetus A NST Start Time: 1104 (01/22/15 1637) HR (beats/min): 150 (01/22/15 1637) Variability: moderate (amplitude range 6 to 25 bpm) (01/22/15 163) Accelerations: present (to 185) (01/22/15 163) Decelerations: none (01/22/15 163) Contraction Frequency (min): single contracction vs. valsalva/repositioning during NST (01/22/15 163) Nonstress Test Interpretation: Reactive <32 week: two 10 bpm accelerations lasting 10 seconds (01/22/15 163) Overall Impression: Reassuring for gestational age (01/22/15 1637) Cyrus Burnham MD PGY4 I personally reviewed the NST and I agree with Dr. Burnham's assessment and documentation. * Janna Oliva RN - 01/22/2015 11:51 AM EST 0800 Pt reports movement. She deneis CTX or LOF. She reports a scant amount of brown blood ontoilet paper when she wipes. 1130 NST reactive. EFM and toco D/C. MD Burnham has viewed the strip. 1353 scant amount red, mucousy blood on toilet paper when pt last went to the bathroom. Pt denies CTX and reports movement. MD Burnham aware. * Cyrus Burnham MD - 01/22/2015 6:29 AM EST Images from the original note were not included. Obstetrical Antepartum Progress Note Patient ID: 29 y.o. female at 31w0d gestation, now HD#3, bleed-free day #1 admitted for presumed placental abruption. otherwise complicated by GDMA2 on insulin, obesity, h/o CS x2, and h/o SAB and D&C x2. 24 Hour Events - u/s obtained without u/s evidence of abruption - 2nd dose betamethasone administered yesterday 1745 hrs Subjective: The patient has no complaints this morning. She had some continued bright red spotting yesterday but only brownish discharge today. The patient reports active movement and denies loss of fluid or contractions. Some uterine discomfort w/ultrasound yesterday. Review of Systems: otherwise negative Physical Exam Last value Range last 24 hrs Temperature Temp: 37 ??C (98.6 ??F) Temp: [36.5 ??C (97.7 ??F)-37 ??C (98.6 ??F)] Heart Rate Heart Rate: 98 Heart Rate: [96-101] Blood Pressure BP: 116/61 mmHg BP: (108-131)/(61-75) Respiratory Rate Resp: 18 Resp: [18] SpO2 SpO2: -- Gen: appears well, in no acute distress HEENT: no thyromegaly Cardiac: RRR, S1, S2, no rub/gallop/murmur Pulm: CTAB, no rales/wheeze/rhonchi Abd: soft, symmetric, nontender, gravid Uterus: soft, unclear presentation by Warren's Extremities: symmetric, nontender, no edema Heart Rate Interpretation: NST reactive yesterday, repeat pending today Most Recent Ultrasound 01/21/2015: Cephalic, anterior placenta, BRIDGET 16.3, EFW 1898g (92%ile), no u/s evidence of abruption Assessment & Plan: 29 y.o. female at 31w0d gestation, HD#3, bleed-free day #1 admitted for presumed placental abruption. otherwise complicated by GDMA2 on insulin, obesity, h/o CS x2, and h/o SAB and D&C x2. ?? Placental Abruption: Bleeding and uterine irritability consistent with abruption - continue hospitalization to follow bleeding until resolved/bleed free x7 days. ?? Presentation: cephalic ?? Status: reassuring ?? surveillance: NST once daily ?? GBS Management: None Required ?? Steroid status: Betamethasone complete 01/21 ?? Delivery Indications: non reassuring status and maternal deterioration ?? Delivery Plan: Repeat section (history of LTCS x2) - patient consented and declines BTL. If progressive spontaneous labor, could consider TOLAC ?? Consultations: neonatology Additional issues: ?? GDMA2. Continue home insulin regimen - NPH 14 u qAM and 10 u qPM, Novalog 8 u with breakfast and18 u with dinner, mildly elevated postprandial glucose consistent with betamethasone effect This patient was seen/discussed on rounds Signed: Cyrus Burnham MD, PGY4 01/22/2015 Associated attestation - Vinicius Godinez MD - 01/28/2015 10:04 PM EST I have seen and examined the patient, providing negrete components as outlined below. I have reviewed the resident???s above note; my evaluation of the patient is below: 31 weeks chronic abruption. * Griselda Avila - 01/21/2015 3:09 PM EST ANTEPARTUM NST Nonstress Test, Fetus A NST Start Time: 1121 (01/21/15 1203) HR (beats/min): 140 (01/21/15 1203) Variability: moderate (amplitude range 6 to 25 bpm) (01/21/15 1203) Accelerations: present (01/21/15 1203) Decelerations: none (01/21/15 1203) Contraction Frequency (min): none (01/21/15 1203) Nonstress Test Interpretation: Reactive, >32 weeks: two 15 bpm accelerations lasting 15 seconds (01/21/15 1203) Overall Impression: Reassuring for gestational age (01/21/15 1203) Griselda Avila MD, PGY-4 01/21/2015 Associated attestation - Sanju Marcos MD - 01/21/2015 5:58 PM EST I personally reviewed and interpreted this NST. Sanju Marcos MD * Janna Oliva RN - 01/21/2015 11:15 AM EST 1115 Pt has been to US. Bed bath for now and pt may sit in the chair for short periods per MD. Pt reports baby is active and denies CTX or LOF. Reports scant red VB on toilet paper when goes to the bathroom 1745 Pt reports decreased VB. Scant amount light pink on toilet paper. * Cyrus Burnham MD - 01/21/2015 9:27 AM EST Obstetrical Antepartum Progress Note Patient ID: 29 y.o. female at 30w6d gestation admitted for vaginal bleeding, likely placental abruption. otherwise complicated by GDMA2 on insulin, obesity, h/o CS x2, and h/o SAB and D&C x2. 24 Hour Events - continued scant bright red bleeding on toilet tissue - intermittent uterine cramping q15-20 minutes overnight Subjective: The patient reports cramping now resolved. She continues to complain of scant bright red bleeding when she voids, no staining of underwear. She is otherwise without complaint and notes active movement. She denies vaginal bleeding or loss of fluid. Review of Systems: otherwise negative Physical Exam Last value Range last 24 hrs Temperature Temp: 36.7 ??C (98.1 ??F) Temp: [36.7 ??C (98.1 ??F)-37 ??C (98.6 ??F)] Heart Rate Heart Rate: 101 Heart Rate: [99-104] Blood Pressure BP: 112/75 mmHg BP: (94-121)/(61-80) Respiratory Rate Resp: 16 Resp: [16] SpO2 SpO2: -- Gen: appears well, in no acute distress HEENT: no thyromegaly Cardiac: RRR, S1, S2, no rub/gallop/murmur Pulm: CTAB, no rales/wheeze/rhonchi Abd: soft, symmetric, nontender, gravid Uterus: soft, unclear presentation by Warren's Extremities: symmetric, nontender, no edema Heart Rate Interpretation: NST reactive yesterday, repeat pending today Most Recent Ultrasound Date: 01/02/2015 GA at US: 27w6d EFW: 1345 g Growth appropriate for gestational age Amniotic fluid volume normal (BRIDGET 17.95 cm, MVP 6.37 cm) Placenta anterior Presentation transverse, head to maternal right Assessment & Plan: 29 y.o. female at 30w6d gestation admitted for vaginal bleeding, likely placental abruption. otherwise complicated by GDMA2 on insulin, obesity, h/o CS x2, and h/o SAB and D&C x2. ?? Obstetric Issues ?? Placental Abruption: Bleeding and uterine irritability consistent with abruption - continue hospitalization to follow bleeding until resolved/bleed free x7 days ?? Presentation: unsure ?? Status: reassuring ?? surveillance: NST once daily ?? GBS Management: None Required ?? Steroid status: First dose betamethasone admininstered at 1745 on 01/20 ?? Delivery Indications: non reassuring status and maternal deterioration ?? Delivery Plan: Repeat section (history of LTCS x2) - patient consented and declines BTL. If progressive spontaneous labor, could consider TOLAC ?? Consultations: neonatology Additional issues: ?? GDMA2. Continue home insulin regimen - NPH 14 u qAM and 10 u qPM, Novalog 8 u with breakfast and18 u with dinner. This patient was seen/discussed on rounds Signed: Cyrus Burnham MD, PGY4 01/21/2015 Associated attestation - Vinicius Godinez MD - 01/28/2015 9:02 PM EST I have seen and examined the patient, providing negrete components as outlined below. I have reviewed the resident???s above note; my evaluation of the patient is below: 29 yo at 30 6/7 weeks chronic abruption, GDM. FM felt, no LOF, no bleeding or chuyita. AFVSS Abdomen soft, NT, gravid I/R 30 6/7 weeks chronic abruption, A2 GDM NST S/p BMZ Titrate insulin * Anyi Gomez, RN - 01/20/2015 4:52 PM EST 1520:Pt here for bleeding the past few days, states small amount on her toilet paper, and pictures brought in. No current bleeding or ctx @ present, placed on EFM, VS taken. notified of arrival. 1536: Sterile spec exam attempted by , difficult d/t cervical anatomy. SVE done by . Plan for admission for bleeding. 1615: Pt moved to BP16, placed on EFM to continue NST. documented in this encounter H&P Notes * Tiffanie Gonzalez MD - 01/20/2015 3:53 PM EST Obstetrical Admission Note Initial Care Provider: [facility] Chief Complaint: Martinez Richardson was admitted today secondary to vaginal bleeding in the third trimester. Martinez Richardson is a 29 y.o. female at 30w5d gestation. She reports that two days ago, she had light pink spotting throughout the day. The following day, she had more spotting. Today, she went to the bathroom and noted that she had soaked her underwear with bright red blood. No passage of clots. She then called and discussed her bleeding with Licha Krishnan, who recommended presentation to the . She has been feeling cramping for the last several days and is feeling more frequent BH contractions. Active movements. Denies loss of fluid. Denies recent intercourse. Denies illicit drug use. course was complicated by: 1. Gestational diabetes A2 on insulin. Recent good control per patient report and review of records 2. Obesity (BMI 33.5) 3. H/o CS x2 4. H/o SAB and D&C x2 Review of Systems Obstetric Review of Systems Total Weight Gain this 14.07 kg (31 lb 0.3 oz) Review of symptoms negative except as above in HPI. There are no hospital problems to display for this patient. Active Non-Hospital Problems Diagnosis ??? Supervision of high risk in second trimester ??? Gestational diabetes Past Medical History Diagnosis Date ??? PCOS (polycystic ovarian syndrome) ??? Gestational diabetes ??? Septate uterus ??? Psychiatric problem anxiety and depression ??? Varicella Past Surgical History Procedure Laterality Date ??? section x2 ??? Dilation and curettage of uterus x2 ??? Tonsillectomy and adenoidectomy 2012 OB History Para Term AB TAB SAB Ectopic Multiple Living 5 2 2 2 2 2 # Outc Date GA Lbr Yehuda/2nd Wgt Sex Del Anes PTL Lv 5 Current 4 Term 2009 M CS-Unspec Comments: repeat 3 Term 2007 F CS-Unspec Comments: NRFHT 2 SAB 2006 10w0d Comments: D&C 1 SAB 2004 10w0d Comments: D&C Prior to Admission Medications Prescriptions prior to admission Medication Sig Dispense Refill ??? insulin aspart (NOVOLOG) Solution Please inject subcutaneously 13 units in the morning and 8 units at bed. 10 mL 12 ??? insulin NPH human recomb (HUMULIN;NOVOLIN) Suspension Please inject subcutaneously 8u in the morning and 6u at bed. 10 mL 12 ??? Insulin Syringe-Needle U-100 1/2 mL 31 x 5/16 Syringe 1 Box by [facility].(Non- Drug; Combo Route) route 3 times daily. 100 Syringe PRN ??? Alcohol Swabs Pads, Medicated Apply 200 each topically 3 times daily. 200 each PRN ? ? VITS W-CA,FE,FA,<1MG, ( VITAMIN ORAL) Allergies Allergies Allergen Reactions ??? Penicillins CIS - Mouth swelling, difficulty breathing Family History Problem Relation Age of Onset ??? Cancer Paternal Aunt ??? Breast Cancer Paternal Grandmother ??? Colorectal Cancer Paternal Grandmother ??? Heart Disease Paternal Grandfather 40s Social History Occupational History ??? Not on file. Social History Main Topics ??? Smoking status: Never Smoker ??? Smokeless tobacco: Never Used ??? Alcohol Use: 4.2 oz/week 7 Glasses of wine per week Comment: not while ??? Drug Use: No ??? Sexual Activity: Partners: Male Immunization History Immunization History Administered Date(s) Administered ??? Influenza Vaccine, Whole 09/12/2010 ??? Tdap Vaccine 10/08/2010 Last Set of Vitals: BP 121/80 Pulse 99 Temp(Src) 36.8 ??C (98.2 ??F) (Oral) Ht 170.2 cm (5' 7) Wt 97.07 kg (214 lb) BMI 33.51 kg/m2 Weight - Scale: 97.07 kg (214 lb) Physical Exam Gen: Sitting in bed, NAD CV: Nl rate, RR, nl S1 and S2, no m/r/g Resp: CTAB, no w/c Abd: Soft, nontender, nondistended Uterine Size: S=D Sterile Speculum: unable to visualize cervix with Graves speculum. Vaginal vault with normal leukorrhea. No vaginal bleeding visualized. Cervical exam: long/closed/high, firm, posterior Pelvis: average Presentations: Cephalic on BSUS Heart Rate Interpretation: 150 bpm, mod variability, +accels, -decels, Uterine irritability on toco Record Review Labs Lab Results Component Value Date ABORH A Pos 10/31/2014 HCT 35.5 01/02/2015 HGB 12.0 01/02/2015 MCV 95.2* 01/02/2015 HEPBSAG Negative 10/31/2014 RUBLIGG Positive 10/31/2014 HIV12 Negative 10/31/2014 GCAMP Negative 10/31/2014 CHLMGENE Negative 10/31/2014 GBS unknown Most Recent Ultrasound Date: 01/02/2015 GA at US: 27w6d EFW: 1345 g Growth appropriate for gestational age Amniotic fluid volume normal (BRIDGET 17.95 cm, MVP 6.37 cm) Placenta anterior Presentation transverse, head to maternal right Assessment & Plan 29 y.o. female at 30w5d gestation admitted for vaginal bleeding, likely placental abruption. otherwise complicated by GDMA2 on insulin, obesity, h/o CS x2, and h/o SAB and D&C x2. ?? Labor State: Not in labor.. ?? Delivery indications: progressive labor, non-reassuring status and maternal deterioration ?? Heart Rate Assessment: Category 1 ?? surveillance: NST once daily ?? GBS Management: ?? GBS Management: None Required; penicillin allergic and GBS unknown, so would require vancomycin if laboring. GBS pending. ?? Steroid status & Plan: Administer betamethasone course now ?? Consultations: neonatology and anesthesiology Additional Issues: ?? Consented for repeat CS. Patient declines BTL. ?? GDMA2. Continue home insulin regimen - NPH 14 u qAM and 10 u qPM, Novalog 8 u with breakfast and18 u with dinner. Patient discussed with Dr Bennett, attending assembler crimper, with whom the plan was formulated. Tiffanie Gonzalez MD, PGY3 01/20/2015 documented in this encounter Miscellaneous Notes * Discharge Summary - Macario Musa P - 03/05/2015 9:06 PM EDT . Discharge Summary Patient Name: Martinez Richardson Patient Age: 29 y.o. Language: Nigerian Race: White Ethnicity: Not nor Admit date: 01/20/2015 Discharge date: 03/04/2015 Attending Physician: No att. providers found Discharge Physician: Dr. Vinicius Maravilla [facility] Follow[facility]up Recommendations for Providers: Routine 6 week visit with glucola challenge at that time Final placenta pathology Inpatient Provider Contact Information: [facility] TRACTOR TECHNICIAN Department, Discharge Diagnoses (Hospital Problems) and Secondary Diagnoses (Chronic Problems) Active Hospital Problems Diagnosis ??? hemorrhage ??? GDMA2 on insulin ??? Previous delivery affecting ??? with third trimester bleeding, antepartum Resolved Hospital Problems Diagnosis Date Resolved No resolved problems to display. Active Non-Hospital Problems Diagnosis ??? Supervision of high risk in second trimester ??? Gestational diabetes Operations/Major Procedures: 03/01/2015: repeat low transverse section with bilateral tubal ligation Indication for Admission: Vaginal bleeding in the third trimester. History of Presentation: (per admit note cut and paste) Martinez Richardson is a 29 y.o. female at 30w5d gestation. She reports that two days ago, she had light pink spotting throughout the day. The following day, she had more spotting. Today, she went to the bathroom and noted that she had soaked her underwear with bright red blood. No passage of clots. She then called and discussed her bleeding with Licha Krishnan, who recommended presentation to the . She has been feeling cramping for the last several days and is feeling more frequent BH contractions. Active movements. Denies loss of fluid. Denies recent intercourse. Denies illicit drug use. course was complicated by: ??? Gestational diabetes A2 on insulin. Recent good control per patient report and review of records ??? Obesity (BMI 33.5) ??? H/o CS x2 ? ? H/o SAB and D&C x2 Hospital Course Including Delivery and Events Martinez was admitted to the [facility] for evaluation and management of her vaginal bleeding.Due to her protracted hospital stay please see problem based hospital course below: Vaginal bleeding: Martinez continued to have intermittent vaginal bleeding about every 3 days during her entire hospital stay that was associated at times with contractions. She was made betamethasone complete on admission and was given magnesium for neuroprotection for the onset of painful contractions every 2-3 minutes approximately HD#7. This episode of contractions subsided and she was not in labor. statusremained reassuring and she remained . Martinez was found to have a 5 x 2 cm subchorionic hemorrhage on ultrasound that appeared stable in size and her bleeding continued to be intermittent with light spotting every 3-4 days. Growth ultrasounds were done every 14 days and appropriate growth was documented. Given her previous section and anterior placenta Martinez was counseled about the risks of a TOLAC which she originally desired. Throughout her hospitalization, she had intermittent episodes of small volume of vaginal bleeding. On HD#41 , Martinez had three episodes of vaginal bleeding that were larger bleeds than had previously been observed. As her fetus was 36w3d gestational age at this point and there was a concern for ongoing placental abruption in the setting of apossible placenta accreta, the decision was made to move toward delivery via section. Martinez also desired surgical sterilization and consent was signed. The operating room was prepared for apossible hysterectomy if placenta accreta was found. During the procedure, the placenta was expressed without difficulty with no signs of accreta. Gestational Diabetes A2 Martinez was admitted on an insulin regimen and her insulin requirements increased throughout her hospital stay and on the day of her section her insulin was: NPH 24 u qAM and 22 u qPM; Novalog 24 U breakfast, 26 U lunch, 28 U dinner. Overall her blood glucose remained well controlled. Post Course: The pt was taken to the OR and underwent repeat low transverse section under spinal analgesia. This resulted in delivery of a liveborn female with Apgars of 8 and 9, weighing 2965g. For further details please see the operative report.The patient recovered well following section. By the day of discharge, the patient was eating, drinking, voiding, and ambulating without difficulty. She had had a bowel movement. She was breast feeding the and was using bilateral tubal ligation for contraception. Her pain was controlled with PO pain medications and her lochia was mild. Her hemoglobin decreased appropriately. She denied F/C/N/V/CP/SOB/PARR/leg pain. Delivery Information Information for the patient's : Doug, Baby Girl [[id number]] INFORMATION Baby Brenna Richardson 03/01/2015 3:11 PM by Lower Segment Transverse Sex: female Gestational Age: 36w3d [place] Measurements: Weight: 6 lb 8.6 oz (2965 g) APGARS One Minute Five Minutes Ten Minutes Totals: 8 9 EBL: 1000cc Vital signs at Discharge: BP: 111/71 mmHg, Heart Rate: 80, Temp: 36.9 ??C (98.4 ??F), Resp: 18, BMI (Calculated): 33.6 Height: 170.2 cm (5' 7) (01/20/15 1519) Weight - Scale: 100.6 kg (221 lb 12.5 oz) (02/27/15 0616) Functional and Cognitive status: Ambulatory and intact Important Studies and Lab Data: Labs: No results found for this or any previous visit (from the past 72 hour(s)). Studies: None Pending Studies and Lab Data: Final placenta pathology Discharge Conditions/Prognosis: good Discharge to: Home Contraceptive Plans: bilateral tubal ligation Allergies at Discharge: Allergies Allergen Reactions ??? Penicillins CIS - Mouth swelling, difficulty breathing Immunizations Given this Hospitalization: Immunization History Administered Date(s) Administered ??? Influenza PF, Split 09/07/2014 ??? Influenza Vaccine, Whole 09/12/2010 ??? Tdap Vaccine 10/08/2010, 01/25/2015 Discharge Medications: Your Medications Notice Some of the medications listed here do not show instructions, such as how often to take the medication. Ask your doctor or nurse how to use these medications. Specifically ask about this and similar medications: VITS W- CA,FE,FA,<1MG, ( VITAMIN ORAL) New Medications Dose Details docusate sodium 100 mg Cap Commonly known as: COLACE Take 1 capsule by mouth 2 times daily for 10 days. 100 mg Quantity: 60 capsule Refills: 3 ibuprofen 600 mg Tab Commonly known as: ADVIL;MOTRIN Take 1 tablet by mouth every 6 hours as needed for Pain. 600 mg Quantity: 60 tablet Refills: 3 oxyCODONE 5 mg Tab Commonly known as: ROXICODONE Take 1 tablet by mouth every 3 hours as needed for Pain. 5 mg Quantity: 30 tablet Refills: 0 Continued medications, unchanged Dose Details Alcohol Swabs Padm Apply 200 each topically 3 times daily. 200 each Quantity: 200 each Refills: PRN VITAMIN ORAL Refills: 0 STOPPED Medications insulin aspart Soln Commonly known as: novoLOG insulin NPH human recomb Susp Commonly known as: NovoLIN N Insulin Syringe-Needle U-100 1/2 mL 31 x 5/16 Syrg Smoking Status at Discharge: History Smoking status ??? Never Smoker Smokeless tobacco ??? Never Used Instructions Given to Patient at Discharge: There are no Patient Instructions on file for this visit. General Instructions Nursing Inpatient Progress C - Section Follow-up Follow-ups: Your follow upo appts will be mailed to you. Maternal Discharge Instructions Rest: Although it may seem impossible to get enough rest, simple planning will help. Try to get at least one four hour block of uninterrupted sleep in 24 hours; then plan to rest, and/or sleep when your baby does. Limiting visitors also helps. Fathers and other family members can help by doing housework, caring for other children and/or helping limit visitors. Activity: After delivery, it is safe to climb stairs at home. Do not lift anything heavierthan your baby for two weeks. Do not drive for two weeks or while taking pain medicine that contains a narcotic as your reaction time may be decreased. Nutrition: Your diet following the of your baby is as important as it was before the baby wasborn. Drink a minimum of 6-8 glasses a day. Do not attempt to lose weight during the first six weeks. Continue taking your vitamins until they are gone. Lochia: (Flow) Your flow should be no heavier than a normal period. It will be bright red for 2-3 days and then pinkish and finally colorless. If your flow becomes bright red again, decrease your activity. Do not use tampons until your care provider advises you it is OK. Incision: Wash the incision with soap and water and pat dry. It is normal to have clear or pinkish fluid seep from the incision. Gauze pads or sanitary napkins may help to keep the incision dry if itis located in a fold under your tummy. If the incision has more redness, yellow drainage, or becomes more painful, contact the obstetrics clinic. Breast feeding mothers: Practice careful positioning and frequent feeding as demonstrated in the hospital. The printed information in your packet covers this in detail. Call your doctor or furniture installer for: ??? Fever more than 100.5 ??? Heavy bleeding that saturates a pad an hour ??? Clots larger than a plum ??? Increased abdominal pain, nausea, shaking chills ??? Increased redness or soreness over your incision Breast with hot, hard, tender areas on the breast plus flu-like symptom ??? depression occurs in a large percentage of women. We encourage you to contact your provider or a member of the nursing staff if you are feeling so overwhelmed that you are unable to care for yourself or your baby. Keep your follow up appointment. You may call the [facility] at any time for guidance or for answers to questions that come up prior to you follow up appointment. Your [facility] Provider can be reached during office hours at ??? Midwives ??? Obstetricians ??? [facility]thing [facility] AFTER OFFICE HOURS for the assembler crimper or furniture installer hand brim ironer Provider electronic signature confirms that discharge instructions were reviewed with the patient. A copy was printed and given to the patient. Future Appointments and Orders Future Orders Complete By Expires Breast pump [EQ28 Custom] As directed Process Instructions: Scheduling Instructions: Questions: Vendor Name/Contact information: Breast Pump Discharge References/Attachments None * Plan of Care - Henny Arellano RN - 03/04/2015 3:52 AM EDT Problem: General Plan of Care Goal: Plan of Care Review Outcome: Ongoing (Interventions Implemented as Appropriate) 03/03/15 0129 03/03/152037 Coping/Psychosocial Response Interventions Plan of Care Reviewed with -- patient;spouse Plan of Care Review Plan of Care Outcome Status ongoing (interventions implemented as appropriate) -- Progress improving -- Goal: Individualization and Mutuality Outcome: Ongoing (Interventions Implemented as Appropriate) 03/02/15 1255 Individualization Individualize the Plan of Care: Progress appropriately in state Patient Specific Preferences Pain control, ambulation, successful Patient Specific Goals Successful Patient Specific Interventions VS per protocol, encourage ambulation, pain control, work with Services Mutuality/Individual Preferences What anxieties, fears or concerns do you have about your health or care? Nothing at present What questions do you have about your health or care? None What information would help us give you more personalized care? Update patient accordingly on plan of care Goal: Fall Prevention-Safe Patient Handling Outcome: Ongoing (Interventions Implemented as Appropriate) 02/26/15 1927 02/28/15 0800 03/02/15 1948 Safety Interventions Safety Precautions/Fall Reduction fall reduction program maintained;lighting adjusted for task/safety;environmental modification;nonskid shoes/slippers when out of bed -- -- Musculoskeletal Interventions Activity/Level of Assistance -- -- -- Positioning -- -- -- Muscle Strengthening -- -- activity/mobility promoted;personal routines for BADL/IADL promoted Self-Care Promotion -- personal routines for BADL/IADL promoted -- Jesus Fall Risk History of Falling -- -- -- Secondary Diagnosis -- -- -- Ambulatory Aids -- -- -- Intravenous Therapy/Heparin/Saline Lock -- -- -- Gait/Transferring -- -- -- Mental Status -- -- -- Score -- -- -- OTHER Lee Fall Risk -- -- -- 03/03/1582103/03/152037 Safety Interventions Safety Precautions/Fall Reduction -- -- Musculoskeletal Interventions Activity/Level of Assistance -- up ad zeus Positioning independent -- Muscle Strengthening -- -- Self-Care Promotion -- -- Lee Fall Risk History of Falling 0 -- Secondary Diagnosis 0 -- Ambulatory Aids 0 -- Intravenous Therapy/Heparin/Saline Lock 0 -- Gait/Transferring 0 -- Mental Status 0 -- Score 0 -- OTHER Lee Fall Risk Low -- Goal: Infection Control Outcome: Ongoing (Interventions Implemented as Appropriate) 03/02/15200203/02/15201903/04/15348 Safety Interventions Isolation Precautions -- -- standard precautions maintained Infection Prevention -- rest/sleep promoted;promote handwashing -- Coping/Psychosocial Response Interventions Counseling calming techniques promoted;emotional support provided;goal setting facilitated;problem solving facilitated;reassurance provided;relaxation techniques promoted;understanding of situation facilitated -- -- Goal: Discharge Needs Assessment Outcome: Ongoing (Interventions Implemented as Appropriate) 02/24/15 014 Discharge Needs Assessment Concerns to be Addressed no discharge needs identified Readmission Within the Last 30 Days no previous admission in last 30 days Equipment Needed After Discharge none Current Health Anticipated Changes Related to Illness none Self-Care Equipment Currently Used at Home none Living Environment Transportation Available family or friend will provide Problem: Following Section Delivery (Adult, Obstetrics) Goal: Signs and symptoms of listed potential problems will be absent or manageable (reference ( Following Section Delivery (Adult, Obstetrics)) CPG) Outcome: Ongoing (Interventions Implemented as Appropriate) 03/04/15348 Following Section Delivery Problems Assessed ( Following Section Delivery) all Problems Present ( Following Section Delivery) none Comments: OUTCOME EVALUATION NOTE: OUTCOME SUMMARY:vital signs stable,up ad zeus PLAN MOVING FORWARD: Continue care per careplan INDIVIDUALIZED FALL PREVENTION: Assistance: ambulating independently Supervision: remind patient to call for assistance Surveillance: Purposeful rounding CPG OUTCOME EVALUATION: * Plan of Care - Griselda Ross RN - 03/03/2015 9:52 AM EDT Problem: General Plan of Care Goal: Plan of Care Review Outcome: Ongoing (Interventions Implemented as Appropriate) 03/03/15 0129 03/03/15 08 Coping/Psychosocial Response Interventions Plan of Care Reviewed with -- patient;spouse Plan of Care Review Plan of Care Outcome Status ongoing (interventions implemented as appropriate) -- Progress improving -- Goal: Individualization and Mutuality Outcome: Ongoing (Interventions Implemented as Appropriate) 03/02/15 1255 Individualization Individualize the Plan of Care: Progress appropriately in state Patient Specific Preferences Pain control, ambulation, successful Patient Specific Goals Successful Patient Specific Interventions VS per protocol, encourage ambulation, pain control, work with Services Mutuality/Individual Preferences What anxieties, fears or concerns do you have about your health or care? Nothing at present What questions do you have about your health or care? None What information would help us give you more personalized care? Update patient accordingly on plan of care Goal: Fall Prevention-Safe Patient Handling Outcome: Ongoing (Interventions Implemented as Appropriate) 02/26/15 1927 02/28/15 0803/02/15 194 Safety Interventions Safety Precautions/Fall Reduction fall reduction program maintained;lighting adjusted for task/safety;environmental modification;nonskid shoes/slippers when out of bed -- -- Musculoskeletal Interventions Activity/Level of Assistance -- -- -- Positioning -- -- -- Muscle Strengthening -- -- activity/mobility promoted;personal routines for BADL/IADL promoted Self-Care Promotion -- personal routines for BADL/IADL promoted -- Lee Fall Risk History of Falling -- -- -- Secondary Diagnosis -- -- -- Ambulatory Aids -- -- -- Intravenous Therapy/Heparin/Saline Lock -- -- -- Gait/Transferring -- -- -- Mental Status -- -- -- Score -- -- -- OTHER Lee Fall Risk -- -- -- 03/03/15 0822 Safety Interventions Safety Precautions/Fall Reduction -- Musculoskeletal Interventions Activity/Level of Assistance up ad zeus;up in room Positioning independent Muscle Strengthening -- Self-Care Promotion -- Lee Fall Risk History of Falling 0 Secondary Diagnosis 0 Ambulatory Aids 0 Intravenous Therapy/Heparin/Saline Lock 0 Gait/Transferring 0 Mental Status 0 Score 0 OTHER Lee Fall Risk Low Goal: Infection Control Outcome: Ongoing (Interventions Implemented as Appropriate) 03/02/15200203/02/152019 Safety Interventions Isolation Precautions -- standard precautions maintained Infection Prevention -- rest/sleep promoted;promote handwashing Coping/Psychosocial Response Interventions Counseling calming techniques promoted;emotional support provided;goal setting facilitated;problem solving facilitated;reassurance provided;relaxation techniques promoted;understanding of situation facilitated -- Goal: Discharge Needs Assessment Outcome: Ongoing (Interventions Implemented as Appropriate) 02/24/15 014 Discharge Needs Assessment Concerns to be Addressed no discharge needs identified Readmission Within the Last 30 Days no previous admission in last 30 days Equipment Needed After Discharge none Current Health Anticipated Changes Related to Illness none Self-Care Equipment Currently Used at Home none Living Environment Transportation Available family or friend will provide Problem: Following Section Delivery (Adult, Obstetrics) Goal: Signs and symptoms of listed potential problems will be absent or manageable (reference ( Following Section Delivery (Adult, Obstetrics)) CPG) Outcome: Ongoing (Interventions Implemented as Appropriate) 03/03/15128 Following Section Delivery Problems Assessed ( Following Section Delivery) all Problems Present ( Following Section Delivery) none Comments: OUTCOME EVALUATION NOTE: OUTCOME SUMMARY: Martinez continues to attempt to breastfeed. Is attentive to infant. Is pumping and feeding via SNS every 2-3 hours. Has had increased pain, treated with tylenol and oxycodone. PLAN MOVING FORWARD: Treat pain and work on . INDIVIDUALIZED FALL PREVENTION: Assistance: Independent Supervision: independent Surveillance: Hourly rounding * Plan of Care - Judi Negrete RN - 03/03/2015 1:34 AM EDT Problem: General Plan of Care Goal: Plan of Care Review Outcome: Ongoing (Interventions Implemented as Appropriate) 03/03/15 0129 Coping/Psychosocial Response Interventions Plan of Care Reviewed with patient;spouse Plan of Care Review Plan of Care Outcome Status ongoing (interventions implemented as appropriate) Progress improving Goal: Individualization and Mutuality Outcome: Ongoing (Interventions Implemented as Appropriate) 03/02/15 1255 Individualization Individualize the Plan of Care: Progress appropriately in state Patient Specific Preferences Pain control, ambulation, successful Patient Specific Goals Successful Patient Specific Interventions VS per protocol, encourage ambulation, pain control, work with Services Mutuality/Individual Preferences What anxieties, fears or concerns do you have about your health or care? Nothing at present What questions do you have about your health or care? None What information would help us give you more personalized care? Update patient accordingly on plan of care Goal: Fall Prevention-Safe Patient Handling Outcome: Ongoing (Interventions Implemented as Appropriate) 02/26/15192602/28/15 0803/02/151947 Safety Interventions Safety Precautions/Fall Reduction fall reduction program maintained;lighting adjusted for task/safety;environmental modification;nonskid shoes/slippers when out of bed -- -- Musculoskeletal Interventions Activity/Level of Assistance -- -- up ad zeus Positioning -- -- independent Muscle Strengthening -- -- activity/mobility promoted;personal routines for BADL/IADL promoted Self-Care Promotion -- personal routines for BADL/IADL promoted -- Lee Fall Risk History of Falling -- -- -- Secondary Diagnosis -- -- -- Ambulatory Aids -- -- -- Intravenous Therapy/Heparin/Saline Lock -- -- -- Gait/Transferring -- -- -- Mental Status -- -- -- Score -- -- -- OTHER Lee Fall Risk -- -- -- 03/02/152019 Safety Interventions Safety Precautions/Fall Reduction -- Musculoskeletal Interventions Activity/Level of Assistance -- Positioning -- Muscle Strengthening -- Self-Care Promotion -- Lee Fall Risk History of Falling 0 Secondary Diagnosis 0 Ambulatory Aids 0 Intravenous Therapy/Heparin/Saline Lock 0 Gait/Transferring 0 Mental Status 0 Score 0 OTHER Lee Fall Risk Low Goal: Infection Control Outcome: Ongoing (Interventions Implemented as Appropriate) 03/02/15200203/02/152019 Safety Interventions Isolation Precautions -- standard precautions maintained Infection Prevention -- rest/sleep promoted;promote handwashing Coping/Psychosocial Response Interventions Counseling calming techniques promoted;emotional support provided;goal setting facilitated;problem solving facilitated;reassurance provided;relaxation techniques promoted;understanding of situation facilitated -- Goal: Discharge Needs Assessment Outcome: Ongoing (Interventions Implemented as Appropriate) 02/24/15 0149 Discharge Needs Assessment Concerns to be Addressed no discharge needs identified Readmission Within the Last 30 Days no previous admission in last 30 days Equipment Needed After Discharge none Current Health Anticipated Changes Related to Illness none Self-Care Equipment Currently Used at Home none Living Environment Transportation Available family or friend will provide OUTCOME EVALUATION NOTE: OUTCOME SUMMARY: Stable C/S patient day #2, VSS, dressing CDI, bleeding WDL, has been independent of caretoday. Pain management education has been done with patient. has been challenging butis making improvements. Patient utilizing SNS with human donor milk, is beginning to nurse better. Patient pumps after and gets small amounts which is than fed to the . PLAN MOVING FORWARD: Continue to encourage pain medication on a regular basis to avoid an increase in pain. Continue to support . INDIVIDUALIZED FALL PREVENTION: Assistance: Independent. Call light in reach. Supervision: None. Surveillance: Purposeful rounding. Problem: Following Section Delivery (Adult, Obstetrics) Goal: Signs and symptoms of listed potential problems will be absent or manageable (reference ( Following Section Delivery (Adult, Obstetrics)) CPG) Outcome: Ongoing (Interventions Implemented as Appropriate) 03/03/15 0129 Following Section Delivery Problems Assessed ( Following Section Delivery) all Problems Present ( Following Section Delivery) none * Plan of Care - Tracey Abreu RN - 03/02/2015 1:04 PM EDT Problem: General Plan of Care Goal: Plan of Care Review Outcome: Ongoing (Interventions Implemented as Appropriate) 03/01/15 1153 03/02/15 1102 Coping/Psychosocial Response Interventions Plan of Care Reviewed with -- patient;spouse Plan of Care Review Plan of Care Outcome Status ongoing (interventions implemented as appropriate) -- Progress improving -- OUTCOME EVALUATION NOTE: OUTCOME SUMMARY: Patient progressing well in state. Ambulating ad zeus independently. Boston catheter removed and patient is voiding without incident. Lower transverse abdominal incision pressure dressing isclean, dry, and intact. Fundus firm and midline at U-2. VS stable; normotensive and afebrile. Pain well-controlled with present pain regime. PLAN MOVING FORWARD: Encourage ambulation, pain control, voiding at least every 2 hours, /working with Services. INDIVIDUALIZED FALL PREVENTION: Assistance: Independent; encouraged to notify nursing staff with any needs. Supervision: at bedside providing support. Surveillance: Bedside nursing knowledge exchange and purposeful rounding per unit routine. CPG OUTCOME EVALUATION: Goal: Individualization and Mutuality Outcome: Ongoing (Interventions Implemented as Appropriate) 03/02/15 1255 Individualization Individualize the Plan of Care: Progress appropriately in state Patient Specific Preferences Pain control, ambulation, successful Patient Specific Goals Successful Patient Specific Interventions VS per protocol, encourage ambulation, pain control, work with Services Mutuality/Individual Preferences What anxieties, fears or concerns do you have about your health or care? Nothing at present What questions do you have about your health or care? None What information would help us give you more personalized care? Update patient accordingly on plan of care Goal: Fall Prevention-Safe Patient Handling Outcome: Ongoing (Interventions Implemented as Appropriate) 02/26/15 1927 02/28/15 0800 03/02/15 0312 Safety Interventions Safety Precautions/Fall Reduction fall reduction program maintained;lighting adjusted for task/safety;environmental modification;nonskid shoes/slippers when out of bed -- -- Musculoskeletal Interventions Activity/Level of Assistance -- -- ambulated Positioning -- independent -- Muscle Strengthening -- activity/mobility promoted -- Self-Care Promotion -- personal routines for BADL/IADL promoted -- Lee Fall Risk History of Falling -- -- -- Secondary Diagnosis -- -- -- Ambulatory Aids -- -- -- Intravenous Therapy/Heparin/Saline Lock -- -- -- Gait/Transferring -- -- -- Mental Status -- -- -- Score -- -- -- OTHER Lee Fall Risk -- -- -- 03/02/15 1102 Safety Interventions Safety Precautions/Fall Reduction -- Musculoskeletal Interventions Activity/Level of Assistance -- Positioning -- Muscle Strengthening -- Self-Care Promotion -- Lee Fall Risk History of Falling 0 Secondary Diagnosis 15 Ambulatory Aids 0 Intravenous Therapy/Heparin/Saline Lock 0 Gait/Transferring 0 Mental Status 0 Score 15 OTHER Lee Fall Risk Low Goal: Infection Control Outcome: Ongoing (Interventions Implemented as Appropriate) 03/02/15 1102 Safety Interventions Isolation Precautions standard precautions maintained Infection Prevention blood glucose management;environmental surveillance;hydration promoted;nutrition promoted;promote handwashing;rest/sleep promoted Coping/Psychosocial Response Interventions Counseling emotional support provided Goal: Discharge Needs Assessment Outcome: Ongoing (Interventions Implemented as Appropriate) 02/24/15 0149 Discharge Needs Assessment Concerns to be Addressed no discharge needs identified Readmission Within the Last 30 Days no previous admission in last 30 days Equipment Needed After Discharge none Current Health Anticipated Changes Related to Illness none Self-Care Equipment Currently Used at Home none Living Environment Transportation Available family or friend will provide Problem: Following Section Delivery (Adult, Obstetrics) Goal: Signs and symptoms of listed potential problems will be absent or manageable (reference ( Following Section Delivery (Adult, Obstetrics)) CPG) Outcome: Ongoing (Interventions Implemented as Appropriate) 03/02/15 1255 Following Section Delivery Problems Assessed ( Following Section Delivery) all Problems Present ( Following Section Delivery) none * Plan of Care - Rocio Goins RN - 03/02/2015 6:43 AM EDT Problem: General Plan of Care Goal: Plan of Care Review Outcome: Ongoing (Interventions Implemented as Appropriate) 03/01/15 1153 03/01/15 2113 Coping/Psychosocial Response Interventions Plan of Care Reviewed with -- patient;spouse Plan of Care Review Plan of Care Outcome Status ongoing (interventions implemented as appropriate) -- Progress improving -- OUTCOME EVALUATION NOTE: OUTCOME SUMMARY: Pt. Doing well overnight. Up to wheelchair to visit baby in icn q 3 hrs; Mom pumping over in icn. Pain well controlled with toradol and tylenol. PLAN MOVING FORWARD: Continue ambulating; removal of boston cath; cont pumping/working on INDIVIDUALIZED FALL PREVENTION: Assistance: As needed Supervision: at bedside Surveillance: Purposeful rounding CPG OUTCOME EVALUATION: Goal: Individualization and Mutuality Outcome: Ongoing (Interventions Implemented as Appropriate) 03/02/15 0636 Individualization Patient Specific Preferences to see baby in icn Patient Specific Goals ambulate, pump Mutuality/Individual Preferences What anxieties, fears or concerns do you have about your health or care? not being able to go home with baby What questions do you have about your health or care? none What information would help us give you more personalized care? keep informed Goal: Fall Prevention-Safe Patient Handling Outcome: Ongoing (Interventions Implemented as Appropriate) 02/26/15192602/28/15 0803/01/15 0730 Safety Interventions Safety Precautions/Fall Reduction fall reduction program maintained;lighting adjusted for task/safety;environmental modification;nonskid shoes/slippers when out of bed -- -- Musculoskeletal Interventions Activity/Level of Assistance -- -- -- Positioning -- independent -- Muscle Strengthening -- activity/mobility promoted -- Self-Care Promotion -- personal routines for BADL/IADL promoted -- Lee Fall Risk History of Falling -- -- 0 Secondary Diagnosis -- -- 15 Ambulatory Aids -- -- 0 Intravenous Therapy/Heparin/Saline Lock -- -- 0 Gait/Transferring -- -- 0 Mental Status -- -- 0 Score -- -- 15 OTHER Lee Fall Risk -- Med -- 03/02/15 0312 Safety Interventions Safety Precautions/Fall Reduction -- Musculoskeletal Interventions Activity/Level of Assistance ambulated Positioning -- Muscle Strengthening -- Self-Care Promotion -- Lee Fall Risk History of Falling -- Secondary Diagnosis -- Ambulatory Aids -- Intravenous Therapy/Heparin/Saline Lock -- Gait/Transferring -- Mental Status -- Score -- OTHER Lee Fall Risk -- Goal: Infection Control Outcome: Ongoing (Interventions Implemented as Appropriate) 02/27/15195203/01/15 0730 Safety Interventions Isolation Precautions -- standard precautions maintained Infection Prevention -- promote handwashing Coping/Psychosocial Response Interventions Counseling calming techniques promoted;emotional support provided;goal setting facilitated;personalstrengths integrated;problem solving facilitated;relaxation techniques promoted;reassurance provided;understanding of situation facilitated;verbalization of feelings encouraged -- Goal: Discharge Needs Assessment Outcome: Ongoing (Interventions Implemented as Appropriate) 02/24/15 0149 Discharge Needs Assessment Concerns to be Addressed no discharge needs identified Readmission Within the Last 30 Days no previous admission in last 30 days Equipment Needed After Discharge none Current Health Anticipated Changes Related to Illness none Self-Care Equipment Currently Used at Home none Living Environment Transportation Available family or friend will provide Problem: Following Section Delivery (Adult, Obstetrics) Goal: Signs and symptoms of listed potential problems will be absent or manageable (reference ( Following Section Delivery (Adult, Obstetrics)) CPG) Outcome: Ongoing (Interventions Implemented as Appropriate) 03/02/15 0636 Following Section Delivery Problems Assessed ( Following Section Delivery) all Problems Present ( Following Section Delivery) none * Brief Op Note - Griselda Hampton MD - 03/01/2015 5:20 PM EDT Brief Operative Note Patient Name: Martinez Richardson : [id number] MR#: [id number] Case Date: 03/01/2015 Surgeon: Surgeon(s) and Role: * Vinicius Mack MD - Resident-Surgeon Chief * Griselda Hampton MD - Primary * Macario Musa MD Preoperative diagnosis: ABRUPTION; REPEAT C/S; Desires permanent sterilization Postoperative diagnosis: ABRUPTION; REPEAT C/S; Desires permanent sterilization Procedure(s): @ DELIVERY @FALLOPIAN TUBE(S), TRANSECTION OR LIGATION, ABD APPROACH, POST- Anesthesia: regional Findings: liveborn female , normal placenta, normal uterus and adnexa Complications: none Fluids: crystalloids only Estimated Blood Loss: 1 liter Drains: boston Disposition: regional anesthesia adiminstered without incident Condition: doing well without problems Attestation: Case Date: 03/01/2015 I was present and I participated during the entire procedure (does not need to include opening and closing). (Please see the Surgical Encounter Summary for any Implant and Specimen details pertinent to this patient.) * L&D Delivery Note - Macario Musa - 03/01/2015 5:17 PM EDT Martinez Richardson is a 29 yo at 36 + 3/7 wga who was HD#41 [place] [facility] [place] chronic abruption. monitoring was reassuring, however, due to increased quantity of bleeding, the decision was made to proceed with a repeat low transverse section and bilateral tubal ligation.She underwent an uncomplicated procedure. The placenta was expressed without difficulty with no signs of placenta accreta. Delivered a live born female , weight 2965g, and APGARs 8/9. EBL 1,000cc. Please see operative report for further details. Information for the patient's : Noemi Richardson [[id number]] DELIVERY SUMMARY FOR Baby Brenna Richardson (please note there is a separate summary for each fetus) 03/01/2015 3:11 PM by Lower Segment Transverse Sex: female Gestational Age: 36w3d Labor Events Labor Onset Type: section without labor Augmentation: None Rupture Date: 03/01/15 Rupture Time: 3:10 PM Rupture Type: Artificial rupture Maternal Procedures with Delivery: tubal ligation Labor Event Times No data filed Mother Delivery Episiotomy: None Perineal lacerations: None Surgical or additional est. blood loss (mL): 1000 Combined est. blood loss (mL): 1000 Delivery ([place]) Delivery Date: 03/01/15 Delivery Time: 1510 Sex: Female Presentation: Vertex Attempted ?: No Delivery Type: Delivery Type (Specific): Lower Segment Transverse Major Indications - : abruption Shoulder Dystocia Shoulder dystocia present?: No Delivery Information Delivery Location: OR Delivering Clinician: MACARIO MUSA Staff Present: Yes Other Personnel: Provider Role CAMILA GOMEZ Delivery Nurse GRISELDA HAMPTON Inserting Machine Operator VINICIUS MACK Delivery Assist MAYRA SINGH Registered Nurse NICOL GUERRA Registered Nurse DARIEN ECHEVARRIA Medical Student LORRI NEVILLE Registered Nurse Anesthesia Method: Spinal Cord Vessels: 3 Vessels Complications: None Gases Sent?: No Cord Insertion: normal Assessment & APGARS Living status: Yes Apgars 1 Minute: 5 Minute: 10 Minute 15 Minute 20 Minute Skin Color: 1 1 Heart Rate: 2 2 Reflex Irritability: 2 2 Muscle Tone: 1 2 Respiratory Effort: 2 2 Total: 8 9 Apgars Assigned By: DHAVAL COLIN APRN Resuscitation Method: None, Suctioning Suctioning Method: Bulb syringe Maternal [place] Feeding and Skin to Skin Maternal Choice for (s) Feeding on Admission: Skin to skin initiation date/time: 03/01/151524 Skin to skin with: Mother [place] Medications Medications Given: vitamin K, erythromycin Naxalone Given?: No Measurements Weight: 6 lb 8.6 oz (2965 g) Height: 45 cm Head Circumference: 34.5 cm Observed Anomalies: none Placenta Date and Time: 03/01/20151510 Removal: Manual Removal Appearance: Intact Labor Length No data filed RUPTURE OF MEMBRANES FETUS B-E * Op Note - Macario Musa - 03/01/2015 4:28 PM EDT [facility] Operative Note Patient Name: Martinez Richardson : 1985 MR#: Case Date: 03/01/2015 Surgeon: Surgeon(s) and Role: * Vinicius Mack MD - Resident-Surgeon Chief * Griselda Hampton MD - Primary * Macario Musa MD Preoperative diagnosis: 1.) IUP at 36w3d gestation 2.) chronic placental abruption. 3.) repeat section. 4.) desires permanent sterilization Postoperative diagnosis: SAME, delivered. Procedure(s): 1.) Repeat low transverse section via Pfannenstiel incision 2.) Bilateral tubal ligation. Complications: none Fluids: 2 L crystalloid Estimated Blood Loss: 1 liter Anesthesia: Spinal Drains: Boston catheter draining 400cc of clear urine, left in place after procedure Disposition: regional anesthesia adiminstered without incident Condition: doing well without problems (Please see the Surgical Encounter Summary for any Implant and Specimen details pertinent to this patient.) Findings at surgery: Liveborn female in cephalic presentation. Clear fluid. Peds was presentat delivery and assigned Apgars of 8 at one minute and 9 at five minutes, weight of gm. Normal uterus, tubes and ovaries. HPI/ Indications for Procedure: Martinez Richardson is a 29 y.o. who was HD#41 admitted for chronic abruption. The decision wasmade to proceed with repeat delivery at 36w3d gestation due to increased frequency and quantity of bleeding. The risks, benefits and alternatives were reviewed including bleeding, infection and damage to surrounding structures (bowel, bladder, uterus, tubes, ovaries, ureters, blood vesselsor nerves). Risk of failure to prevent resulting in intrauterine or ectopic , risk of regret. The procedure was reviewed in detail with the patient, who had the opportunity to ask questions, all of which were answered. Consent was obtained. Procedure Description: The patient was taken to the Operating Room where spinal anesthesia was administered and found to be adequate. The patient was given clindamycin and gentamicin for prophylaxis. The patient was placedin the dorsal lithotomy position with a leftward tilt with her legs in [place] stirrups due to concern for placenta accreta and possible need for hysterectomy. The patient was then preppedand draped in the usual sterile fashion. A timeout was performed with all parties in agreement. After spinal anesthesia was confirmed adequate, a Pfannenstiel skin incision was made with a scalpel and carried through to the underlying layer of fascia with sharp dissection and the Bovie. The fascia was nicked in the midline and the incision was extended laterally with the curved Sierra scissors.The superior aspect of the fascial incision was then grasped with Sudha clamps, elevated, and the rectus muscle was dissected off with the Bovie. Attention was then turned to the inferior aspect of the fascial incision, which in a similar fashion was grasped with Sudha clamps, elevated and the underlying rectus and pyramidalis muscles were dissected off the Bovie down to the level of the pubic symphsis. The rectus muscles were then in the midline and the peritoneum identified and entered digitally. The peritoneal incision was then extended superiorly and inferiorly to the bladder reflection. The bladder blade was then inserted and the vesicouterine peritoneum identified, grasped with pickups and entered sharply with Metzenbaum scissors. This incision was then extended laterally; a bladder flap was created. The lower uterine segment was incised in a transverse fashion with a scalpel. An amniotomy was performed to clear fluid. The hysterotomy was extended with upward and downward traction. A hand was inserted into the uterus and the bladder blade was then removed. After the head was brought to the hysterotomy, gentle fundal pressure was applied to facilitate delivery of . The head and shoulders delivered easily. Live born female was delivered. The cord was doubly clamped and cut.The infant was handed off to the awaiting pediatricians, who assigned Apgars of 8 and 9. Oxytocin was initiated to facilitate uterine contractions. The placenta was expressed easily. The uterus was exteriorized and was cleared of all clots and debris. The uterine incision was repaired with 0 vicryl in a continuous locked fashion. A second layer of the same suture was used to imbricate the first layer. Examination of the pelvis revealed normal uterus, tubes and ovaries. Attention was turned to the tubal ligation. The right fallopian tube was then grasped with fina clamps and a window was made in the mesosalpinx with bovie cautery. The proximal and distal ends were doubly tied with 0 plain gut suture. The intervening segment was excisedwith Metzenbaum scissors. The segment was sent to pathology for confirmation. This was repeated on the left side. Excellent hemostasis was appreciated on both sides. The hysterotomy was checked again and had a small amount of oozing in the center of the incision that was controlled with a figure of eight. The left angle was oozing and hemostasis was obtained withanother figure of eight using 0-vicryl suture. The fascia and bladder flap were checked and found to be hemostatic. The fascia was reapproximated with 0-vicryl in a running fashion with two segments. The subcutaneous space was well irrigated. The subcutaneous space was loosely reapproximated with 2-0 plain gut suture. The skin was closed with subcuticular sutures in a running fashion using 4-0 monocryl and steri-strips were applied. Sterile dressings were applied over the incision. The vagina was cleared of all clots. The patient and infant tolerated the procedure well and were in satisfactory condition at its conclusion. Sponge, lap, needle and instrument counts were correct times two at case close. The patient was taken back to her room in stable condition. Dr. Hampton, Attending was present and participated for the entire procedure without any conflictingclinical responsibilities. Macario Musa MD PGY3 03/01/2015 * Plan of Care - Mayte Ayala RN - 03/01/2015 12:00 PM EDT Problem: General Plan of Care Goal: Plan of Care Review Outcome: Ongoing (Interventions Implemented as Appropriate) 03/01/15 1153 Coping/Psychosocial Response Interventions Plan of Care Reviewed with patient Plan of Care Review Plan of Care Outcome Status ongoing (interventions implemented as appropriate) Progress improving OUTCOME EVALUATION NOTE: OUTCOME SUMMARY: pt with new bleeding today- MD team aware. NST WNL. PLAN MOVING FORWARD: Continue to monitor for worsening bleeding and/or contractions. INDIVIDUALIZED FALL PREVENTION: Assistance: Pt ind Supervision: Pt able to call for help- call light within reach Surveillance: Purposeful rounding CPG OUTCOME EVALUATION: Goal: Individualization and Mutuality Outcome: Ongoing (Interventions Implemented as Appropriate) 02/16/15 0454 02/23/15 0340 Individualization Individualize the Plan of Care: -- to avoid further bleeding Patient Specific Preferences Keep patient informed of changes in plan of care -- Patient Specific Goals Remain until scheduled c/s at 37 weeks. -- Patient Specific Interventions Daily NST, BS monitoring, Q4VS, monitor for bleeding. -- Mutuality/Individual Preferences What anxieties, fears or concerns do you have about your health or care? None -- What questions do you have about your health or care? None -- What information would help us give you more personalized care? None -- Goal: Fall Prevention-Safe Patient Handling Outcome: Ongoing (Interventions Implemented as Appropriate) 02/26/15192602/28/15 0803/01/15 0730 Safety Interventions Safety Precautions/Fall Reduction fall reduction program maintained;lighting adjusted for task/safety;environmental modification;nonskid shoes/slippers when out of bed -- -- Musculoskeletal Interventions Activity/Level of Assistance -- -- independently Positioning -- independent -- Muscle Strengthening -- activity/mobility promoted -- Self-Care Promotion -- personal routines for BADL/IADL promoted -- Lee Fall Risk History of Falling -- -- 0 Secondary Diagnosis -- -- 15 Ambulatory Aids -- -- 0 Intravenous Therapy/Heparin/Saline Lock -- -- 0 Gait/Transferring -- -- 0 Mental Status -- -- 0 Score -- -- 15 OTHER Lee Fall Risk -- Med -- Goal: Infection Control Outcome: Ongoing (Interventions Implemented as Appropriate) 02/27/15195203/01/15 0730 Safety Interventions Isolation Precautions -- standard precautions maintained Infection Prevention -- promote handwashing Coping/Psychosocial Response Interventions Counseling calming techniques promoted;emotional support provided;goal setting facilitated;personalstrengths integrated;problem solving facilitated;relaxation techniques promoted;reassurance provided;understanding of situation facilitated;verbalization of feelings encouraged -- Goal: Discharge Needs Assessment Outcome: Ongoing (Interventions Implemented as Appropriate) 02/24/15 0149 Discharge Needs Assessment Concerns to be Addressed no discharge needs identified Readmission Within the Last 30 Days no previous admission in last 30 days Equipment Needed After Discharge none Current Health Anticipated Changes Related to Illness none Self-Care Equipment Currently Used at Home none Living Environment Transportation Available family or friend will provide Problem: High-Risk/Critically Ill OB Patient (Adult, Obstetrics) Goal: Signs and symptoms of listed potential problems will be absent or manageable (reference (High-Risk/Critically Ill OB Patient (Adult, Obstetrics)) CPG) Outcome: Ongoing (Interventions Implemented as Appropriate) 03/01/15 1153 High-Risk/Critically Ill OB Problems Assessed (High Risk/Critically Ill OB) all Problems Present (High Risk/Critically Ill OB) none Problem: Second or Third Trimester Bleeding (Adult, Obstetrics) Goal: Signs and symptoms of listed potential problems will be absent or manageable (reference (Second or Third Trimester Bleeding (Adult, Obstetrics)) CPG) OUTCOME EVALUATION NOTE: OUTCOME SUMMARY: Remains undelivered last bleed 02/18/15 am PLAN MOVING FORWARD: Continue care as directed INDIVIDUALIZED FALL PREVENTION: Assistance: independent Supervision: Surveillance: Purposeful rounding CPG OUTCOME EVALUATION: Outcome: Ongoing (Interventions Implemented as Appropriate) 03/01/15 1153 Second or Third Trimester Bleeding Problems Present (Second or Third Trimester Bleeding) bleeding/hemorrhage New bleeding today, aware * Plan of Care - Camila Kraft RN - 03/01/2015 5:24 AM EDT Problem: General Plan of Care Goal: Plan of Care Review Outcome: Ongoing (Interventions Implemented as Appropriate) 02/25/15 1135 02/28/151999 Coping/Psychosocial Response Interventions Plan of Care Reviewed with -- patient Plan of Care Review Plan of Care Outcome Status ongoing (interventions implemented as appropriate) -- Progress improving -- OUTCOME EVALUATION NOTE: OUTCOME SUMMARY: Patient without bleed overnight. Stable vital signs and blood sugars PLAN MOVING FORWARD: Continue to monitor for bleeding and signs of labor. Monitor vital signs per protocol. INDIVIDUALIZED FALL PREVENTION: Assistance: Independent Supervision: Nurse Surveillance: Purposeful rounding. CPG OUTCOME EVALUATION: Goal: Individualization and Mutuality Outcome: Ongoing (Interventions Implemented as Appropriate) 02/16/15 0454 02/23/15 0340 Individualization Individualize the Plan of Care: -- to avoid further bleeding Patient Specific Preferences Keep patient informed of changes in plan of care -- Patient Specific Goals Remain until scheduled c/s at 37 weeks. -- Patient Specific Interventions Daily NST, BS monitoring, Q4VS, monitor for bleeding. -- Mutuality/Individual Preferences What anxieties, fears or concerns do you have about your health or care? None -- What questions do you have about your health or care? None -- What information would help us give you more personalized care? None -- Goal: Fall Prevention-Safe Patient Handling Outcome: Ongoing (Interventions Implemented as Appropriate) 02/26/15192602/28/1579902/28/151999 Safety Interventions Safety Precautions/Fall Reduction fall reduction program maintained;lighting adjusted for task/safety;environmental modification;nonskid shoes/slippers when out of bed -- -- Musculoskeletal Interventions Activity/Level of Assistance -- -- independently;up ad zeus Positioning -- independent -- Muscle Strengthening -- activity/mobility promoted -- Self-Care Promotion -- personal routines for BADL/IADL promoted -- Lee Fall Risk History of Falling -- -- 0 Secondary Diagnosis -- -- 15 Ambulatory Aids -- -- 0 Intravenous Therapy/Heparin/Saline Lock -- -- 20 Gait/Transferring -- -- 0 Mental Status -- -- 0 Score -- -- 35 OTHER Lee Fall Risk -- Med -- Goal: Infection Control Outcome: Ongoing (Interventions Implemented as Appropriate) 02/27/15195202/28/1579902/28/151999 Safety Interventions Isolation Precautions -- -- standard precautions maintained Infection Prevention -- promote handwashing -- Coping/Psychosocial Response Interventions Counseling calming techniques promoted;emotional support provided;goal setting facilitated;personalstrengths integrated;problem solving facilitated;relaxation techniques promoted;reassurance provided;understanding of situation facilitated;verbalization of feelings encouraged -- -- Goal: Discharge Needs Assessment Outcome: Ongoing (Interventions Implemented as Appropriate) 02/24/15 0149 Discharge Needs Assessment Concerns to be Addressed no discharge needs identified Readmission Within the Last 30 Days no previous admission in last 30 days Equipment Needed After Discharge none Current Health Anticipated Changes Related to Illness none Self-Care Equipment Currently Used at Home none Living Environment Transportation Available family or friend will provide Problem: High-Risk/Critically Ill OB Patient (Adult, Obstetrics) Goal: Signs and symptoms of listed potential problems will be absent or manageable (reference (High-Risk/Critically Ill OB Patient (Adult, Obstetrics)) CPG) Outcome: Ongoing (Interventions Implemented as Appropriate) 02/25/15 0444 High-Risk/Critically Ill OB Problems Assessed (High Risk/Critically Ill OB) all Problems Present (High Risk/Critically Ill OB) none Problem: Second or Third Trimester Bleeding (Adult, Obstetrics) Goal: Signs and symptoms of listed potential problems will be absent or manageable (reference (Second or Third Trimester Bleeding (Adult, Obstetrics)) CPG) OUTCOME EVALUATION NOTE: OUTCOME SUMMARY: Remains undelivered last bleed 02/18/15 am PLAN MOVING FORWARD: Continue care as directed INDIVIDUALIZED FALL PREVENTION: Assistance: independent Supervision: Surveillance: Purposeful rounding CPG OUTCOME EVALUATION: Outcome: Ongoing (Interventions Implemented as Appropriate) 02/26/15 2227 Second or Third Trimester Bleeding Problems Assessed (Second or Third Trimester Bleeding) all Problems Present (Second or Third Trimester Bleeding) none * Plan of Care - Michell Maynard RN - 02/28/2015 4:01 PM EDT Problem: General Plan of Care Goal: Plan of Care Review Outcome: Ongoing (Interventions Implemented as Appropriate) 02/25/15 1135 02/27/15 195 Coping/Psychosocial Response Interventions Plan of Care Reviewed with -- patient Plan of Care Review Plan of Care Outcome Status ongoing (interventions implemented as appropriate) -- Progress improving -- Goal: Individualization and Mutuality Outcome: Ongoing (Interventions Implemented as Appropriate) Goal: Fall Prevention-Safe Patient Handling Outcome: Ongoing (Interventions Implemented as Appropriate) Goal: Infection Control Outcome: Ongoing (Interventions Implemented as Appropriate) 02/27/15 19502/28/15 0800 Safety Interventions Isolation Precautions -- standard precautions maintained Infection Prevention -- promote handwashing Coping/Psychosocial Response Interventions Counseling calming techniques promoted;emotional support provided;goal setting facilitated;personalstrengths integrated;problem solving facilitated;relaxation techniques promoted;reassurance provided;understanding of situation facilitated;verbalization of feelings encouraged -- Goal: Discharge Needs Assessment Outcome: Ongoing (Interventions Implemented as Appropriate) 02/24/15 0149 Discharge Needs Assessment Concerns to be Addressed no discharge needs identified Readmission Within the Last 30 Days no previous admission in last 30 days Equipment Needed After Discharge none Current Health Anticipated Changes Related to Illness none Self-Care Equipment Currently Used at Home none Living Environment Transportation Available family or friend will provide Problem: High-Risk/Critically Ill OB Patient (Adult, Obstetrics) Goal: Signs and symptoms of listed potential problems will be absent or manageable (reference (High-Risk/Critically Ill OB Patient (Adult, Obstetrics)) CPG) Outcome: Ongoing (Interventions Implemented as Appropriate) 02/25/15 0444 High-Risk/Critically Ill OB Problems Assessed (High Risk/Critically Ill OB) all Problems Present (High Risk/Critically Ill OB) none Problem: Second or Third Trimester Bleeding (Adult, Obstetrics) Goal: Signs and symptoms of listed potential problems will be absent or manageable (reference (Second or Third Trimester Bleeding (Adult, Obstetrics)) CPG) OUTCOME EVALUATION NOTE: OUTCOME SUMMARY: Remains undelivered last bleed 02/18/15 am PLAN MOVING FORWARD: Continue care as directed INDIVIDUALIZED FALL PREVENTION: Assistance: independent Supervision: Surveillance: Purposeful rounding CPG OUTCOME EVALUATION: Outcome: Ongoing (Interventions Implemented as Appropriate) 02/26/15 2227 Second or Third Trimester Bleeding Problems Assessed (Second or Third Trimester Bleeding) all Problems Present (Second or Third Trimester Bleeding) none Comments: OUTCOME EVALUATION NOTE: OUTCOME SUMMARY: Patient is bleed free today. VS WNL. Pt BG monitored, receiving insulin. Pt ambulating ad zeus. Voiding w/o difficulty. Hydration, rest promoted. PLAN MOVING FORWARD: Scheduled c/s for 03/06 INDIVIDUALIZED FALL PREVENTION: Assistance: Independent Supervision: None needed Surveillance: Purposeful rounding CPG OUTCOME EVALUATION: * Plan of Care - Camila Gomez RN - 02/27/2015 11:00 PM EDT Problem: General Plan of Care Goal: Plan of Care Review Outcome: Ongoing (Interventions Implemented as Appropriate) 02/25/15 1135 02/27/15 195 Coping/Psychosocial Response Interventions Plan of Care Reviewed with -- patient Plan of Care Review Plan of Care Outcome Status ongoing (interventions implemented as appropriate) -- Progress improving -- OUTCOME EVALUATION NOTE: OUTCOME SUMMARY: BS fasting and PP. VSS. Agrees to alert RN if any bleeding present. Denies bleeding at this time. PLAN MOVING FORWARD: Cont to monitor for bleeding. C/s and BTL sched. INDIVIDUALIZED FALL PREVENTION: Assistance: Call fry in reach Supervision: Hourly rounds Surveillance: Purposeful rounding CPG OUTCOME EVALUATION: Goal: Individualization and Mutuality Outcome: Ongoing (Interventions Implemented as Appropriate) 02/16/15 0454 02/23/15 0340 Individualization Individualize the Plan of Care: -- to avoid further bleeding Patient Specific Preferences Keep patient informed of changes in plan of care -- Patient Specific Goals Remain until scheduled c/s at 37 weeks. -- Patient Specific Interventions Daily NST, BS monitoring, Q4VS, monitor for bleeding. -- Mutuality/Individual Preferences What anxieties, fears or concerns do you have about your health or care? None -- What questions do you have about your health or care? None -- What information would help us give you more personalized care? None -- Goal: Fall Prevention-Safe Patient Handling Outcome: Ongoing (Interventions Implemented as Appropriate) 02/26/15 19202/27/151952 Safety Interventions Safety Precautions/Fall Reduction fall reduction program maintained;lighting adjusted for task/safety;environmental modification;nonskid shoes/slippers when out of bed -- Musculoskeletal Interventions Activity/Level of Assistance -- up ad zeus;up in room;independently Positioning -- independent Muscle Strengthening -- activity/mobility promoted;personal routines for BADL/IADL promoted Self-Care Promotion -- personal routines for BADL/IADL promoted Lee Fall Risk History of Falling -- 0 Secondary Diagnosis -- 15 Ambulatory Aids -- 0 Intravenous Therapy/Heparin/Saline Lock -- 20 Gait/Transferring -- 0 Mental Status -- 0 Score -- 35 OTHER Lee Fall Risk -- Med Goal: Infection Control Outcome: Ongoing (Interventions Implemented as Appropriate) 02/27/151952 Safety Interventions Isolation Precautions standard precautions maintained Infection Prevention promote handwashing;rest/sleep promoted;nutrition promoted;hydration promoted;environmental surveillance;blood glucose management Coping/Psychosocial Response Interventions Counseling calming techniques promoted;emotional support provided;goal setting facilitated;personalstrengths integrated;problem solving facilitated;relaxation techniques promoted;reassurance provided;understanding of situation facilitated;verbalization of feelings encouraged Goal: Discharge Needs Assessment Outcome: Ongoing (Interventions Implemented as Appropriate) 02/24/15 0149 Discharge Needs Assessment Concerns to be Addressed no discharge needs identified Readmission Within the Last 30 Days no previous admission in last 30 days Equipment Needed After Discharge none Current Health Anticipated Changes Related to Illness none Self-Care Equipment Currently Used at Home none Living Environment Transportation Available family or friend will provide Problem: High-Risk/Critically Ill OB Patient (Adult, Obstetrics) Goal: Signs and symptoms of listed potential problems will be absent or manageable (reference (High-Risk/Critically Ill OB Patient (Adult, Obstetrics)) CPG) Outcome: Ongoing (Interventions Implemented as Appropriate) 02/25/15 0444 High-Risk/Critically Ill OB Problems Assessed (High Risk/Critically Ill OB) all Problems Present (High Risk/Critically Ill OB) none Problem: Second or Third Trimester Bleeding (Adult, Obstetrics) Goal: Signs and symptoms of listed potential problems will be absent or manageable (reference (Second or Third Trimester Bleeding (Adult, Obstetrics)) CPG) OUTCOME EVALUATION NOTE: OUTCOME SUMMARY: Remains undelivered last bleed 02/18/15 am PLAN MOVING FORWARD: Continue care as directed INDIVIDUALIZED FALL PREVENTION: Assistance: independent Supervision: Surveillance: Purposeful rounding CPG OUTCOME EVALUATION: Outcome: Ongoing (Interventions Implemented as Appropriate) * Plan of Care - Camila Gomez RN - 02/26/2015 10:31 PM EDT Problem: General Plan of Care Goal: Plan of Care Review Outcome: Ongoing (Interventions Implemented as Appropriate) 02/25/15 1135 02/26/15 1927 Coping/Psychosocial Response Interventions Plan of Care Reviewed with -- patient Plan of Care Review Plan of Care Outcome Status ongoing (interventions implemented as appropriate) -- Progress improving -- OUTCOME EVALUATION NOTE: OUTCOME SUMMARY: Pt ambulating independently. Carb control diet. 1hr PP and fasting BG cont. PLAN MOVING FORWARD: Daily wgt gloria am. Daily NSTs INDIVIDUALIZED FALL PREVENTION: Assistance: Call fry in reach Supervision: Hourly rounds Surveillance: Purposeful rounding CPG OUTCOME EVALUATION: Goal: Individualization and Mutuality Outcome: Ongoing (Interventions Implemented as Appropriate) 02/16/15 0454 02/23/15 0340 Individualization Individualize the Plan of Care: -- to avoid further bleeding Patient Specific Preferences Keep patient informed of changes in plan of care -- Patient Specific Goals Remain until scheduled c/s at 37 weeks. -- Patient Specific Interventions Daily NST, BS monitoring, Q4VS, monitor for bleeding. -- Mutuality/Individual Preferences What anxieties, fears or concerns do you have about your health or care? None -- What questions do you have about your health or care? None -- What information would help us give you more personalized care? None -- Goal: Fall Prevention-Safe Patient Handling Outcome: Ongoing (Interventions Implemented as Appropriate) 02/26/15 192 Safety Interventions Safety Precautions/Fall Reduction fall reduction program maintained;lighting adjusted for task/safety;environmental modification;nonskid shoes/slippers when out of bed Musculoskeletal Interventions Activity/Level of Assistance up ad zeus;independently Positioning independent Muscle Strengthening activity/mobility promoted;mobility in bed promoted Self-Care Promotion independence encouraged while providing assistance Lee Fall Risk History of Falling 0 Secondary Diagnosis 15 Ambulatory Aids 0 Intravenous Therapy/Heparin/Saline Lock 20 Gait/Transferring 0 Mental Status 0 Score 35 OTHER Lee Fall Risk Low Goal: Infection Control Outcome: Ongoing (Interventions Implemented as Appropriate) 02/26/15 192 Safety Interventions Isolation Precautions standard precautions maintained Infection Prevention rest/sleep promoted;promote handwashing;nutrition promoted;hydration promoted;environmental surveillance;blood glucose management Coping/Psychosocial Response Interventions Counseling reassurance provided;relaxation techniques promoted;emotional support provided;goal setting facilitated Goal: Discharge Needs Assessment Outcome: Ongoing (Interventions Implemented as Appropriate) 02/24/15 0149 Discharge Needs Assessment Concerns to be Addressed no discharge needs identified Readmission Within the Last 30 Days no previous admission in last 30 days Equipment Needed After Discharge none Current Health Anticipated Changes Related to Illness none Self-Care Equipment Currently Used at Home none Living Environment Transportation Available family or friend will provide Problem: High-Risk/Critically Ill OB Patient (Adult, Obstetrics) Goal: Signs and symptoms of listed potential problems will be absent or manageable (reference (High-Risk/Critically Ill OB Patient (Adult, Obstetrics)) CPG) Outcome: Ongoing (Interventions Implemented as Appropriate) 02/25/15 0444 High-Risk/Critically Ill OB Problems Assessed (High Risk/Critically Ill OB) all Problems Present (High Risk/Critically Ill OB) none Problem: Second or Third Trimester Bleeding (Adult, Obstetrics) Goal: Signs and symptoms of listed potential problems will be absent or manageable (reference (Second or Third Trimester Bleeding (Adult, Obstetrics)) CPG) OUTCOME EVALUATION NOTE: OUTCOME SUMMARY: Remains undelivered last bleed 02/18/15 am PLAN MOVING FORWARD: Continue care as directed INDIVIDUALIZED FALL PREVENTION: Assistance: independent Supervision: Surveillance: Purposeful rounding CPG OUTCOME EVALUATION: Outcome: Ongoing (Interventions Implemented as Appropriate) 02/26/15 2227 Second or Third Trimester Bleeding Problems Assessed (Second or Third Trimester Bleeding) all Problems Present (Second or Third Trimester Bleeding) none * Plan of Care - Cristin Edgar RN - 02/26/2015 4:06 AM EDT Problem: General Plan of Care Goal: Plan of Care Review Outcome: Ongoing (Interventions Implemented as Appropriate) 02/25/15 1135 02/25/15 2100 Coping/Psychosocial Response Interventions Plan of Care Reviewed with -- patient Plan of Care Review Plan of Care Outcome Status ongoing (interventions implemented as appropriate) -- Progress improving -- OUTCOME EVALUATION NOTE: OUTCOME SUMMARY: VSS. Blood sugars stable. Denies ctx's and vag bleeding at this time. PLAN MOVING FORWARD: Cont to monitor for vag bleeding, Daily NST. Monitor blood glucose levels per MD orders.. C/section scheduled for 03/06. INDIVIDUALIZED FALL PREVENTION: Assistance: Independent. Supervision: Glucose monitoring, monitoring, monitoring for vag bleeding. Surveillance: Purposeful rounding. CPG OUTCOME EVALUATION: Goal: Individualization and Mutuality Outcome: Ongoing (Interventions Implemented as Appropriate) 02/16/15 0454 02/23/15 0340 Individualization Individualize the Plan of Care: -- to avoid further bleeding Patient Specific Preferences Keep patient informed of changes in plan of care -- Patient Specific Goals Remain until scheduled c/s at 37 weeks. -- Patient Specific Interventions Daily NST, BS monitoring, Q4VS, monitor for bleeding. -- Mutuality/Individual Preferences What anxieties, fears or concerns do you have about your health or care? None -- What questions do you have about your health or care? None -- What information would help us give you more personalized care? None -- Goal: Fall Prevention-Safe Patient Handling Outcome: Ongoing (Interventions Implemented as Appropriate) 02/24/15 0800 02/25/15 2100 Safety Interventions Safety Precautions/Fall Reduction fall reduction program maintained;lighting adjusted for task/safety;muscle strengthening facilitated;nonskid shoes/slippers when out of bed -- Musculoskeletal Interventions Activity/Level of Assistance -- up ad zeus Positioning -- independent Muscle Strengthening -- activity/mobility promoted Self-Care Promotion personal routines for BADL/IADL promoted;independence encouraged while providing assistance -- Lee Fall Risk History of Falling -- 0 Secondary Diagnosis -- 0 Ambulatory Aids -- 0 Intravenous Therapy/Heparin/Saline Lock -- 20 Gait/Transferring -- 0 Mental Status -- 0 Score -- 20 OTHER Lee Fall Risk Med -- Goal: Infection Control Outcome: Ongoing (Interventions Implemented as Appropriate) 02/24/15 0800 02/25/15 2100 Safety Interventions Isolation Precautions -- standard precautions maintained Infection Prevention -- promote handwashing;nutrition promoted;hydration promoted;blood glucose management;rest/sleep promoted Coping/Psychosocial Response Interventions Counseling calming techniques promoted;emotional support provided;personal strengths integrated;problem solving facilitated;reassurance provided;relaxation techniques promoted;understanding of situation facilitated;verbalization of feelings encouraged -- Goal: Discharge Needs Assessment Outcome: Ongoing (Interventions Implemented as Appropriate) 02/24/15 0149 Discharge Needs Assessment Concerns to be Addressed no discharge needs identified Readmission Within the Last 30 Days no previous admission in last 30 days Equipment Needed After Discharge none Current Health Anticipated Changes Related to Illness none Self-Care Equipment Currently Used at Home none Living Environment Transportation Available family or friend will provide Problem: High-Risk/Critically Ill OB Patient (Adult, Obstetrics) Goal: Signs and symptoms of listed potential problems will be absent or manageable (reference (High-Risk/Critically Ill OB Patient (Adult, Obstetrics)) CPG) Outcome: Ongoing (Interventions Implemented as Appropriate) 02/25/15 0444 High-Risk/Critically Ill OB Problems Assessed (High Risk/Critically Ill OB) all Problems Present (High Risk/Critically Ill OB) none Problem: Second or Third Trimester Bleeding (Adult, Obstetrics) Goal: Signs and symptoms of listed potential problems will be absent or manageable (reference (Second or Third Trimester Bleeding (Adult, Obstetrics)) CPG) OUTCOME EVALUATION NOTE: OUTCOME SUMMARY: Remains undelivered last bleed 02/18/15 am PLAN MOVING FORWARD: Continue care as directed INDIVIDUALIZED FALL PREVENTION: Assistance: independent Supervision: Surveillance: Purposeful rounding CPG OUTCOME EVALUATION: Outcome: Ongoing (Interventions Implemented as Appropriate) 02/25/15 1135 Second or Third Trimester Bleeding Problems Assessed (Second or Third Trimester Bleeding) all Problems Present (Second or Third Trimester Bleeding) none * Plan of Care - Mayte Ayala RN - 02/25/2015 11:40 AM EDT Problem: General Plan of Care Goal: Plan of Care Review Outcome: Ongoing (Interventions Implemented as Appropriate) 02/25/15 1135 Coping/Psychosocial Response Interventions Plan of Care Reviewed with patient Plan of Care Review Plan of Care Outcome Status ongoing (interventions implemented as appropriate) Progress improving OUTCOME EVALUATION NOTE: OUTCOME SUMMARY: Pt appears well rested today with no new complaints or concerns. No new bleeding overnight. NST complete and pt off EFM Dr [place]. Pt distracting herself with Internet activities. PLAN MOVING FORWARD: Plans to continue to monitor surveillance and bleeding. Nine to go until scheduled c/s. INDIVIDUALIZED FALL PREVENTION: Assistance: Pt ind Supervision: Pt able to call for help, call light within reach Surveillance: Purposeful rounding CPG OUTCOME EVALUATION: Goal: Individualization and Mutuality Outcome: Ongoing (Interventions Implemented as Appropriate) 02/16/15 0454 02/23/15 0340 Individualization Individualize the Plan of Care: -- to avoid further bleeding Patient Specific Preferences Keep patient informed of changes in plan of care -- Patient Specific Goals Remain until scheduled c/s at 37 weeks. -- Patient Specific Interventions Daily NST, BS monitoring, Q4VS, monitor for bleeding. -- Mutuality/Individual Preferences What anxieties, fears or concerns do you have about your health or care? None -- What questions do you have about your health or care? None -- What information would help us give you more personalized care? None -- Goal: Fall Prevention-Safe Patient Handling Outcome: Ongoing (Interventions Implemented as Appropriate) 02/24/15 0800 02/25/15 0731 Safety Interventions Safety Precautions/Fall Reduction fall reduction program maintained;lighting adjusted for task/safety;muscle strengthening facilitated;nonskid shoes/slippers when out of bed -- Musculoskeletal Interventions Activity/Level of Assistance -- up ad zeus Positioning -- independent Muscle Strengthening activity/mobility promoted;personal routines for BADL/IADL promoted;up in chair encouraged for meals and activities -- Self-Care Promotion personal routines for BADL/IADL promoted;independence encouraged while providing assistance -- Jesus Fall Risk History of Falling -- 0 Secondary Diagnosis -- 0 Ambulatory Aids -- 0 Intravenous Therapy/Heparin/Saline Lock -- 20 Gait/Transferring -- 0 Mental Status -- 0 Score -- 20 OTHER Lee Fall Risk Med -- Goal: Infection Control Outcome: Ongoing (Interventions Implemented as Appropriate) 02/24/15 0800 02/25/15 0731 Safety Interventions Isolation Precautions -- standard precautions maintained Infection Prevention rest/sleep promoted;promote handwashing;nutrition promoted;hydration promoted;environmental surveillance -- Coping/Psychosocial Response Interventions Counseling calming techniques promoted;emotional support provided;personal strengths integrated;problem solving facilitated;reassurance provided;relaxation techniques promoted;understanding of situation facilitated;verbalization of feelings encouraged -- Goal: Discharge Needs Assessment Outcome: Ongoing (Interventions Implemented as Appropriate) 02/24/15 0149 Discharge Needs Assessment Concerns to be Addressed no discharge needs identified Readmission Within the Last 30 Days no previous admission in last 30 days Equipment Needed After Discharge none Current Health Anticipated Changes Related to Illness none Self-Care Equipment Currently Used at Home none Living Environment Transportation Available family or friend will provide Problem: High-Risk/Critically Ill OB Patient (Adult, Obstetrics) Goal: Signs and symptoms of listed potential problems will be absent or manageable (reference (High-Risk/Critically Ill OB Patient (Adult, Obstetrics)) CPG) Outcome: Ongoing (Interventions Implemented as Appropriate) 02/25/15 0444 High-Risk/Critically Ill OB Problems Assessed (High Risk/Critically Ill OB) all Problems Present (High Risk/Critically Ill OB) none Problem: Second or Third Trimester Bleeding (Adult, Obstetrics) Goal: Signs and symptoms of listed potential problems will be absent or manageable (reference (Second or Third Trimester Bleeding (Adult, Obstetrics)) CPG) OUTCOME EVALUATION NOTE: OUTCOME SUMMARY: Remains undelivered last bleed 02/18/15 am PLAN MOVING FORWARD: Continue care as directed INDIVIDUALIZED FALL PREVENTION: Assistance: independent Supervision: Surveillance: Purposeful rounding CPG OUTCOME EVALUATION: Outcome: Ongoing (Interventions Implemented as Appropriate) 02/25/15 1135 Second or Third Trimester Bleeding Problems Assessed (Second or Third Trimester Bleeding) all Problems Present (Second or Third Trimester Bleeding) none No new bleeding * Plan of Care - Henny Arellano RN - 02/25/2015 4:46 AM EDT Problem: General Plan of Care Goal: Plan of Care Review Outcome: Ongoing (Interventions Implemented as Appropriate) 02/24/15 0149 02/24/15 08 Coping/Psychosocial Response Interventions Plan of Care Reviewed with -- patient Plan of Care Review Plan of Care Outcome Status ongoing (interventions implemented as appropriate) -- Progress progress toward functional goals as expected -- OUTCOME EVALUATION NOTE OUTCOME SUMMARY: Remains undelivered, denies pain, conyraction or bleeding PLAN MOVING FORWARD: Continue care as directed per careplan INDIVIDUALIZED FALL PREVENTION: Assistance: Up in room independently Supervision: encourage patient to call if assistance needed Surveillance: Purposeful rounding CPG OUTCOME EVALUATION: Goal: Individualization and Mutuality Outcome: Ongoing (Interventions Implemented as Appropriate) 02/16/1545302/23/15 034 Individualization Individualize the Plan of Care: -- to avoid further bleeding Patient Specific Preferences Keep patient informed of changes in plan of care -- Patient Specific Goals Remain until scheduled c/s at 37 weeks. -- Patient Specific Interventions Daily NST, BS monitoring, Q4VS, monitor for bleeding. -- Mutuality/Individual Preferences What anxieties, fears or concerns do you have about your health or care? None -- What questions do you have about your health or care? None -- What information would help us give you more personalized care? None -- Goal: Fall Prevention-Safe Patient Handling Outcome: Ongoing (Interventions Implemented as Appropriate) 02/24/15 08 Safety Interventions Safety Precautions/Fall Reduction fall reduction program maintained;lighting adjusted for task/safety;muscle strengthening facilitated;nonskid shoes/slippers when out of bed Musculoskeletal Interventions Activity/Level of Assistance up ad zeus;independently Positioning independent Muscle Strengthening activity/mobility promoted;personal routines for BADL/IADL promoted;up in chair encouraged for meals and activities Self-Care Promotion personal routines for BADL/IADL promoted;independence encouraged while providing assistance Lee Fall Risk History of Falling 0 Secondary Diagnosis 0 Ambulatory Aids 0 Intravenous Therapy/Heparin/Saline Lock 20 Gait/Transferring 0 Mental Status 0 Score 20 OTHER Lee Fall Risk Med Goal: Infection Control Outcome: Ongoing (Interventions Implemented as Appropriate) 02/24/1579902/25/15 044 Safety Interventions Isolation Precautions -- standard precautions maintained Infection Prevention rest/sleep promoted;promote handwashing;nutrition promoted;hydration promoted;environmental surveillance -- Coping/Psychosocial Response Interventions Counseling calming techniques promoted;emotional support provided;personal strengths integrated;problem solving facilitated;reassurance provided;relaxation techniques promoted;understanding of situation facilitated;verbalization of feelings encouraged -- Goal: Discharge Needs Assessment Outcome: Ongoing (Interventions Implemented as Appropriate) 02/24/15 014 Discharge Needs Assessment Concerns to be Addressed no discharge needs identified Readmission Within the Last 30 Days no previous admission in last 30 days Equipment Needed After Discharge none Current Health Anticipated Changes Related to Illness none Self-Care Equipment Currently Used at Home none Living Environment Transportation Available family or friend will provide Problem: High-Risk/Critically Ill OB Patient (Adult, Obstetrics) Goal: Signs and symptoms of listed potential problems will be absent or manageable (reference (High-Risk/Critically Ill OB Patient (Adult, Obstetrics)) CPG) Outcome: Ongoing (Interventions Implemented as Appropriate) 02/25/15 044 High-Risk/Critically Ill OB Problems Assessed (High Risk/Critically Ill OB) all Problems Present (High Risk/Critically Ill OB) none Problem: Second or Third Trimester Bleeding (Adult, Obstetrics) Goal: Signs and symptoms of listed potential problems will be absent or manageable (reference (Second or Third Trimester Bleeding (Adult, Obstetrics)) CPG) OUTCOME EVALUATION NOTE: OUTCOME SUMMARY: Remains undelivered last bleed 02/18/15 am PLAN MOVING FORWARD: Continue care as directed INDIVIDUALIZED FALL PREVENTION: Assistance: independent Supervision: Surveillance: Purposeful rounding CPG OUTCOME EVALUATION: Outcome: Ongoing (Interventions Implemented as Appropriate) 02/25/15443 Second or Third Trimester Bleeding Problems Assessed (Second or Third Trimester Bleeding) all Problems Present (Second or Third Trimester Bleeding) none * Plan of Care - Radu García - 02/24/2015 3:58 PM EDT Problem: General Plan of Care Goal: Plan of Care Review Outcome: Ongoing (Interventions Implemented as Appropriate) 02/24/1514802/24/15 0800 Coping/Psychosocial Response Interventions Plan of Care Reviewed with -- patient Plan of Care Review Plan of Care Outcome Status ongoing (interventions implemented as appropriate) -- Progress progress toward functional goals as expected -- OUTCOME EVALUATION NOTE: OUTCOME SUMMARY: Pt doing well today, no bleeding. Had u/s. BS stable PLAN MOVING FORWARD: Cont to monitor maternal and well being INDIVIDUALIZED FALL PREVENTION: Assistance: Pt independent, RN support, call light within reach Supervision: Pt independent, call light within reach, RN support Surveillance: Purposeful rounding CPG OUTCOME EVALUATION: Goal: Individualization and Mutuality 02/16/15 0454 02/23/15 0340 Individualization Individualize the Plan of Care: -- to avoid further bleeding Patient Specific Preferences Keep patient informed of changes in plan of care -- Patient Specific Goals Remain until scheduled c/s at 37 weeks. -- Patient Specific Interventions Daily NST, BS monitoring, Q4VS, monitor for bleeding. -- Mutuality/Individual Preferences What anxieties, fears or concerns do you have about your health or care? None -- What questions do you have about your health or care? None -- What information would help us give you more personalized care? None -- Goal: Fall Prevention-Safe Patient Handling Outcome: Ongoing (Interventions Implemented as Appropriate) 02/24/15 0800 Safety Interventions Safety Precautions/Fall Reduction fall reduction program maintained;lighting adjusted for task/safety;muscle strengthening facilitated;nonskid shoes/slippers when out of bed Musculoskeletal Interventions Activity/Level of Assistance up ad zeus;independently Positioning independent Muscle Strengthening activity/mobility promoted;personal routines for BADL/IADL promoted;up in chair encouraged for meals and activities Self-Care Promotion personal routines for BADL/IADL promoted;independence encouraged while providing assistance Lee Fall Risk History of Falling 0 Secondary Diagnosis 0 Ambulatory Aids 0 Intravenous Therapy/Heparin/Saline Lock 20 Gait/Transferring 0 Mental Status 0 Score 20 OTHER Lee Fall Risk Med Goal: Infection Control Outcome: Ongoing (Interventions Implemented as Appropriate) 02/24/15 0800 Safety Interventions Isolation Precautions standard precautions maintained Infection Prevention rest/sleep promoted;promote handwashing;nutrition promoted;hydration promoted;environmental surveillance Coping/Psychosocial Response Interventions Counseling calming techniques promoted;emotional support provided;personal strengths integrated;problem solving facilitated;reassurance provided;relaxation techniques promoted;understanding of situation facilitated;verbalization of feelings encouraged Goal: Discharge Needs Assessment Outcome: Ongoing (Interventions Implemented as Appropriate) 02/24/15 0149 Discharge Needs Assessment Concerns to be Addressed no discharge needs identified Readmission Within the Last 30 Days no previous admission in last 30 days Equipment Needed After Discharge none Current Health Anticipated Changes Related to Illness none Self-Care Equipment Currently Used at Home none Living Environment Transportation Available family or friend will provide Problem: High-Risk/Critically Ill OB Patient (Adult, Obstetrics) Goal: Signs and symptoms of listed potential problems will be absent or manageable (reference (High-Risk/Critically Ill OB Patient (Adult, Obstetrics)) CPG) Outcome: Ongoing (Interventions Implemented as Appropriate) 02/24/15 1551 High-Risk/Critically Ill OB Problems Assessed (High Risk/Critically Ill OB) all Problems Present (High Risk/Critically Ill OB) none Problem: Second or Third Trimester Bleeding (Adult, Obstetrics) Goal: Signs and symptoms of listed potential problems will be absent or manageable (reference (Second or Third Trimester Bleeding (Adult, Obstetrics)) CPG) OUTCOME EVALUATION NOTE: OUTCOME SUMMARY: Remains undelivered last bleed 02/18/15 am PLAN MOVING FORWARD: Continue care as directed INDIVIDUALIZED FALL PREVENTION: Assistance: independent Supervision: Surveillance: Purposeful rounding CPG OUTCOME EVALUATION: Outcome: Ongoing (Interventions Implemented as Appropriate) 02/24/15 1551 Second or Third Trimester Bleeding Problems Assessed (Second or Third Trimester Bleeding) all Problems Present (Second or Third Trimester Bleeding) none * Plan of Care - Judi Negrete RN - 02/24/2015 1:57 AM EDT Problem: General Plan of Care Goal: Plan of Care Review Outcome: Ongoing (Interventions Implemented as Appropriate) 02/24/15 0149 Coping/Psychosocial Response Interventions Plan of Care Reviewed with patient Plan of Care Review Plan of Care Outcome Status ongoing (interventions implemented as appropriate) Progress progress toward functional goals as expected Goal: Individualization and Mutuality Outcome: Ongoing (Interventions Implemented as Appropriate) 02/16/15 0454 02/23/15 0340 Individualization Individualize the Plan of Care: -- to avoid further bleeding Patient Specific Preferences Keep patient informed of changes in plan of care -- Patient Specific Goals Remain until scheduled c/s at 37 weeks. -- Patient Specific Interventions Daily NST, BS monitoring, Q4VS, monitor for bleeding. -- Mutuality/Individual Preferences What anxieties, fears or concerns do you have about your health or care? None -- What questions do you have about your health or care? None -- What information would help us give you more personalized care? None -- Goal: Fall Prevention-Safe Patient Handling Outcome: Ongoing (Interventions Implemented as Appropriate) 02/23/15205302/24/15148 Safety Interventions Safety Precautions/Fall Reduction -- lighting adjusted for task/safety;low bed;nonskid shoes/slippers when out of bed Musculoskeletal Interventions Activity/Level of Assistance -- up in room Muscle Strengthening activity/mobility promoted;personal routines for BADL/IADL promoted -- Self-Care Promotion independence encouraged while providing assistance -- Lee Fall Risk History of Falling 0 -- Secondary Diagnosis 15 -- Ambulatory Aids 0 -- Intravenous Therapy/Heparin/Saline Lock 20 -- Gait/Transferring 0 -- Mental Status 0 -- Score 35 -- OTHER Lee Fall Risk Med -- Goal: Infection Control Outcome: Ongoing (Interventions Implemented as Appropriate) 02/24/15148 Safety Interventions Isolation Precautions standard precautions maintained Infection Prevention blood glucose management;environmental surveillance;promote handwashing;rest/sleep promoted;nutrition promoted;hydration promoted Coping/Psychosocial Response Interventions Counseling calming techniques promoted;emotional support provided Goal: Discharge Needs Assessment Outcome: Ongoing (Interventions Implemented as Appropriate) 02/24/15148 Discharge Needs Assessment Concerns to be Addressed no discharge needs identified Readmission Within the Last 30 Days no previous admission in last 30 days Equipment Needed After Discharge none Current Health Anticipated Changes Related to Illness none Self-Care Equipment Currently Used at Home none Living Environment Transportation Available family or friend will provide OUTCOME EVALUATION NOTE: OUTCOME SUMMARY: Patient stable, VSS, reports positive movement, no contractions and no further bleeding tonight. PLAN MOVING FORWARD: Continue to assess patient for bleeding and maintenance of glycemic control. INDIVIDUALIZED FALL PREVENTION: Assistance: Independent, call light within reach. Supervision: Staff. Surveillance: Purposeful rounding. Problem: High-Risk/Critically Ill OB Patient (Adult, Obstetrics) Goal: Signs and symptoms of listed potential problems will be absent or manageable (reference (High-Risk/Critically Ill OB Patient (Adult, Obstetrics)) CPG) Outcome: Ongoing (Interventions Implemented as Appropriate) 02/24/15148 High-Risk/Critically Ill OB Problems Assessed (High Risk/Critically Ill OB) all Problems Present (High Risk/Critically Ill OB) none Problem: Second or Third Trimester Bleeding (Adult, Obstetrics) Goal: Signs and symptoms of listed potential problems will be absent or manageable (reference (Second or Third Trimester Bleeding (Adult, Obstetrics)) CPG) OUTCOME EVALUATION NOTE: OUTCOME SUMMARY: Remains undelivered last bleed 02/18/15 am PLAN MOVING FORWARD: Continue care as directed INDIVIDUALIZED FALL PREVENTION: Assistance: independent Supervision: Surveillance: Purposeful rounding CPG OUTCOME EVALUATION: Outcome: Ongoing (Interventions Implemented as Appropriate) 02/24/15 0149 Second or Third Trimester Bleeding Problems Assessed (Second or Third Trimester Bleeding) all Problems Present (Second or Third Trimester Bleeding) none * Plan of Care - Radu García - 02/23/2015 12:15 PM EDT Problem: General Plan of Care Goal: Plan of Care Review Outcome: Ongoing (Interventions Implemented as Appropriate) 02/23/15 0340 02/23/15 0900 Coping/Psychosocial Response Interventions Plan of Care Reviewed with -- patient Plan of Care Review Plan of Care Outcome Status ongoing (interventions implemented as appropriate) -- Progress no change -- OUTCOME EVALUATION NOTE: OUTCOME SUMMARY: Pt doing well, VSS, BS stable, NST reactive. [id number]: FHT's down to 120 x 150 sec. Return to 150's.Dr Donahue aware and reviewed strip. Pt remained on monitor for 1.5 hrs and baby was active w/ accelerations and baseline 135-140's. Small < quarter size whitney blood on pad this am, MD aware. Cont to monitor PLAN MOVING FORWARD: Monitor maternal and well being INDIVIDUALIZED FALL PREVENTION: Assistance: RN support, call light within reach, purposeful rounding Supervision: RN support, purposeful rounding, call fry within reach Surveillance: purposeful rounding CPG OUTCOME EVALUATION: Goal: Individualization and Mutuality Outcome: Ongoing (Interventions Implemented as Appropriate) 02/16/15 0454 02/23/15 0340 Individualization Individualize the Plan of Care: -- to avoid further bleeding Patient Specific Preferences Keep patient informed of changes in plan of care -- Patient Specific Goals Remain until scheduled c/s at 37 weeks. -- Patient Specific Interventions Daily NST, BS monitoring, Q4VS, monitor for bleeding. -- Mutuality/Individual Preferences What anxieties, fears or concerns do you have about your health or care? None -- What questions do you have about your health or care? None -- What information would help us give you more personalized care? None -- Goal: Fall Prevention-Safe Patient Handling Outcome: Ongoing (Interventions Implemented as Appropriate) 02/23/15 0900 Safety Interventions Safety Precautions/Fall Reduction fall reduction program maintained;family at bedside;lighting adjusted for task/safety;low bed;nonskid shoes/slippers when out of bed Musculoskeletal Interventions Activity/Level of Assistance up ad zeus;independently Positioning independent Muscle Strengthening activity/mobility promoted;personal routines for BADL/IADL promoted Self-Care Promotion independence encouraged while providing assistance;personal routines for BADL/IADL promoted Lee Fall Risk History of Falling 0 Secondary Diagnosis 15 Ambulatory Aids 0 Intravenous Therapy/Heparin/Saline Lock 20 Gait/Transferring 0 Mental Status 0 Score 35 OTHER Lee Fall Risk Low Goal: Infection Control Outcome: Ongoing (Interventions Implemented as Appropriate) 02/22/15 2100 02/23/15 09 Safety Interventions Isolation Precautions -- standard precautions maintained Infection Prevention rest/sleep promoted;blood glucose management -- Coping/Psychosocial Response Interventions Counseling -- calming techniques promoted;emotional support provided;personal strengths integrated;problem solving facilitated;relaxation techniques promoted;reassurance provided;understanding of situation facilitated;verbalization of feelings encouraged Goal: Discharge Needs Assessment Outcome: Ongoing (Interventions Implemented as Appropriate) 02/14/15 1538 02/23/15 0340 Discharge Needs Assessment Concerns to be Addressed -- no discharge needs identified Readmission Within the Last 30 Days -- no previous admission in last 30 days Equipment Needed After Discharge -- none Current Health Anticipated Changes Related to Illness -- none Self-Care Equipment Currently Used at Home -- none Living Environment Transportation Available car;family or friend will provide -- Problem: High-Risk/Critically Ill OB Patient (Adult, Obstetrics) Goal: Signs and symptoms of listed potential problems will be absent or manageable (reference (High-Risk/Critically Ill OB Patient (Adult, Obstetrics)) CPG) Outcome: Ongoing (Interventions Implemented as Appropriate) 02/23/15 1203 High-Risk/Critically Ill OB Problems Assessed (High Risk/Critically Ill OB) all Problems Present (High Risk/Critically Ill OB) none Problem: Second or Third Trimester Bleeding (Adult, Obstetrics) Goal: Signs and symptoms of listed potential problems will be absent or manageable (reference (Second or Third Trimester Bleeding (Adult, Obstetrics)) CPG) OUTCOME EVALUATION NOTE: OUTCOME SUMMARY: Remains undelivered last bleed 02/18/15 am PLAN MOVING FORWARD: Continue care as directed INDIVIDUALIZED FALL PREVENTION: Assistance: independent Supervision: Surveillance: Purposeful rounding CPG OUTCOME EVALUATION: Outcome: Ongoing (Interventions Implemented as Appropriate) 02/23/15 1203 Second or Third Trimester Bleeding Problems Assessed (Second or Third Trimester Bleeding) all Problems Present (Second or Third Trimester Bleeding) none * Plan of Care - Judi Negrete I RN - 02/23/2015 3:44 AM EDT Problem: General Plan of Care Goal: Plan of Care Review Outcome: Ongoing (Interventions Implemented as Appropriate) 02/23/15 0340 Coping/Psychosocial Response Interventions Plan of Care Reviewed with patient Plan of Care Review Plan of Care Outcome Status ongoing (interventions implemented as appropriate) Progress no change Goal: Individualization and Mutuality Outcome: Ongoing (Interventions Implemented as Appropriate) 02/16/15 0454 02/23/15 0340 Individualization Individualize the Plan of Care: -- to avoid further bleeding Patient Specific Goals Remain until scheduled c/s at 37 weeks. -- Patient Specific Interventions Daily NST, BS monitoring, Q4VS, monitor for bleeding. -- Mutuality/Individual Preferences What anxieties, fears or concerns do you have about your health or care? None -- Goal: Fall Prevention-Safe Patient Handling Outcome: Ongoing (Interventions Implemented as Appropriate) 02/22/15209902/23/15 0340 Safety Interventions Safety Precautions/Fall Reduction -- low bed;nonskid shoes/slippers when out of bed Musculoskeletal Interventions Activity/Level of Assistance -- up in room Muscle Strengthening activity/mobility promoted;personal routines for BADL/IADL promoted -- Self-Care Promotion independence encouraged while providing assistance -- Lee Fall Risk History of Falling -- 0 Secondary Diagnosis -- 15 Ambulatory Aids -- 0 Intravenous Therapy/Heparin/Saline Lock -- 20 Gait/Transferring -- 0 Mental Status -- 0 Score -- 35 OTHER Lee Fall Risk -- Low Goal: Infection Control Outcome: Ongoing (Interventions Implemented as Appropriate) 02/22/15 2100 Safety Interventions Isolation Precautions standard precautions maintained Infection Prevention rest/sleep promoted;blood glucose management Coping/Psychosocial Response Interventions Counseling calming techniques promoted;emotional support provided;understanding of situation facilitated;reassurance provided;relaxation techniques promoted Goal: Discharge Needs Assessment Outcome: Ongoing (Interventions Implemented as Appropriate) 02/14/15 1538 02/23/15 0340 Discharge Needs Assessment Concerns to be Addressed -- no discharge needs identified Readmission Within the Last 30 Days -- no previous admission in last 30 days Equipment Needed After Discharge -- none Current Health Anticipated Changes Related to Illness -- none Self-Care Equipment Currently Used at Home -- none Living Environment Transportation Available car;family or friend will provide -- OUTCOME EVALUATION NOTE: OUTCOME SUMMARY: Patient remains stable and at this time has no further bleeding. She visited with her family tonight and was very happy about having 2 of her 3 children here for dinner. Patient denies and current concerns. IV replaced and type and screen updated. PLAN MOVING FORWARD: Continue to monitor for bleeding. INDIVIDUALIZED FALL PREVENTION: Assistance: Call light within reach. Supervision: Independent Surveillance: Purposeful rounding. Problem: High-Risk/Critically Ill OB Patient (Adult, Obstetrics) Goal: Signs and symptoms of listed potential problems will be absent or manageable (reference (High-Risk/Critically Ill OB Patient (Adult, Obstetrics)) CPG) Outcome: Ongoing (Interventions Implemented as Appropriate) 02/23/15 0340 High-Risk/Critically Ill OB Problems Assessed (High Risk/Critically Ill OB) all Problems Present (High Risk/Critically Ill OB) none Problem: Second or Third Trimester Bleeding (Adult, Obstetrics) Goal: Signs and symptoms of listed potential problems will be absent or manageable (reference (Second or Third Trimester Bleeding (Adult, Obstetrics)) CPG) OUTCOME EVALUATION NOTE: OUTCOME SUMMARY: Remains undelivered last bleed 02/18/15 am PLAN MOVING FORWARD: Continue care as directed INDIVIDUALIZED FALL PREVENTION: Assistance: independent Supervision: Surveillance: Purposeful rounding CPG OUTCOME EVALUATION: Outcome: Ongoing (Interventions Implemented as Appropriate) 02/23/15 0340 Second or Third Trimester Bleeding Problems Assessed (Second or Third Trimester Bleeding) all Problems Present (Second or Third Trimester Bleeding) bleeding/hemorrhage * Plan of Care - Camila Gomez RN - 02/22/2015 8:59 AM EDT Problem: General Plan of Care Goal: Plan of Care Review Outcome: Ongoing (Interventions Implemented as Appropriate) 02/21/15 0723 02/22/15 0755 Coping/Psychosocial Response Interventions Plan of Care Reviewed with -- patient Plan of Care Review Plan of Care Outcome Status ongoing (interventions implemented as appropriate) -- Progress progress toward functional goals as expected -- OUTCOME EVALUATION NOTE: OUTCOME SUMMARY: Pt had brown bleeding early this am prior to start of shitf, NST reactive. Pt agrees to alert RN ifshe notices anymore bleeding. Denies bleeding/leaking fluid at this time. Reports movement WNL. BG fasting and 1hr PP. 1330: pt had quarter size amount of blood on pad, MD Pacis aware. NST performed and reactive. 1730: pt has scant randy size amount of brown d/c on pad. Per MD Pacis, no NST needed at this time,but pt unable to leave the floor to go downstairs. Pt agreeable to staying on the floor. PLAN MOVING FORWARD C/s and BTL 03/06 INDIVIDUALIZED FALL PREVENTION: Assistance: Call fry in reach Supervision: Hourly rounds Surveillance: Purposeful rounding CPG OUTCOME EVALUATION: Goal: Individualization and Mutuality Outcome: Ongoing (Interventions Implemented as Appropriate) 02/16/15 0454 02/18/15 0350 Individualization Individualize the Plan of Care: -- rest Patient Specific Preferences Keep patient informed of changes in plan of care -- Patient Specific Goals Remain until scheduled c/s at 37 weeks. -- Patient Specific Interventions Daily NST, BS monitoring, Q4VS, monitor for bleeding. -- Mutuality/Individual Preferences What anxieties, fears or concerns do you have about your health or care? None -- What questions do you have about your health or care? None -- What information would help us give you more personalized care? None -- Goal: Fall Prevention-Safe Patient Handling Outcome: Ongoing (Interventions Implemented as Appropriate) 02/14/15 1538 02/22/15 0755 Safety Interventions Safety Precautions/Fall Reduction lighting adjusted for task/safety;environmental modification -- Musculoskeletal Interventions Activity/Level of Assistance -- up ad zeus;independently Positioning -- independent Muscle Strengthening -- mobility in bed promoted;activity/mobility promoted Self-Care Promotion -- independence encouraged while providing assistance Lee Fall Risk History of Falling -- 0 Secondary Diagnosis -- 15 Ambulatory Aids -- 0 Intravenous Therapy/Heparin/Saline Lock -- 20 Gait/Transferring -- 0 Mental Status -- 0 Score -- 35 OTHER Lee Fall Risk -- Med Goal: Infection Control Outcome: Ongoing (Interventions Implemented as Appropriate) 02/22/15 0755 Safety Interventions Isolation Precautions standard precautions maintained Infection Prevention rest/sleep promoted;promote handwashing;nutrition promoted;hydration promoted;environmental surveillance Coping/Psychosocial Response Interventions Counseling calming techniques promoted;emotional support provided;reassurance provided;relaxation techniques promoted Goal: Discharge Needs Assessment Outcome: Ongoing (Interventions Implemented as Appropriate) 02/14/15 1538 02/18/15 0350 Discharge Needs Assessment Concerns to be Addressed -- no discharge needs identified Readmission Within the Last 30 Days no previous admission in last 30 days -- Equipment Needed After Discharge none -- Current Health Anticipated Changes Related to Illness none -- Self-Care Equipment Currently Used at Home none -- Living Environment Transportation Available car;family or friend will provide -- Problem: High-Risk/Critically Ill OB Patient (Adult, Obstetrics) Goal: Signs and symptoms of listed potential problems will be absent or manageable (reference (High-Risk/Critically Ill OB Patient (Adult, Obstetrics)) CPG) Outcome: Ongoing (Interventions Implemented as Appropriate) 02/19/15 0534 High-Risk/Critically Ill OB Problems Assessed (High Risk/Critically Ill OB) all Problems Present (High Risk/Critically Ill OB) none Problem: Second or Third Trimester Bleeding (Adult, Obstetrics) Goal: Signs and symptoms of listed potential problems will be absent or manageable (reference (Second or Third Trimester Bleeding (Adult, Obstetrics)) CPG) OUTCOME EVALUATION NOTE: OUTCOME SUMMARY: Remains undelivered last bleed 02/18/15 am PLAN MOVING FORWARD: Continue care as directed INDIVIDUALIZED FALL PREVENTION: Assistance: independent Supervision: Surveillance: Purposeful rounding CPG OUTCOME EVALUATION: Outcome: Ongoing (Interventions Implemented as Appropriate) * Plan of Care - Tiffanie Rader RN - 02/22/2015 5:53 AM EDT Problem: General Plan of Care Goal: Plan of Care Review Outcome: Ongoing (Interventions Implemented as Appropriate) 02/21/15 0723 02/21/152019 Coping/Psychosocial Response Interventions Plan of Care Reviewed with -- patient Plan of Care Review Plan of Care Outcome Status ongoing (interventions implemented as appropriate) -- Progress progress toward functional goals as expected -- OUTCOME EVALUATION NOTE: OUTCOME SUMMARY: Martinez is a 29 year old who is 35w2d. C/S with tubal planned for 03/06. Bleeding at the beginning of the shift, small amount on pad the size of a sand dollar, dark red in color. NST performed, strip was reassuring. Vitals stable. No contractions noted during the shift. Patient sleeping comfortably between care; no pain reported. PLAN MOVING FORWARD: Vitals Q4. Assess for bleeding, movement, and contractions. Perform daily NST. Monitor blood sugars and administer insulin as prescribed. INDIVIDUALIZED FALL PREVENTION: Assistance: None Supervision: Call button within reach. Patient instructed to call with questions. Surveillance: Purposeful rounding and safety checks completed. CPG OUTCOME EVALUATION: Goal: Individualization and Mutuality Outcome: Ongoing (Interventions Implemented as Appropriate) 02/16/15 0454 02/18/15 0350 Individualization Individualize the Plan of Care: -- rest Patient Specific Preferences Keep patient informed of changes in plan of care -- Patient Specific Goals Remain until scheduled c/s at 37 weeks. -- Patient Specific Interventions Daily NST, BS monitoring, Q4VS, monitor for bleeding. -- Mutuality/Individual Preferences What anxieties, fears or concerns do you have about your health or care? None -- What questions do you have about your health or care? None -- What information would help us give you more personalized care? None -- Goal: Fall Prevention-Safe Patient Handling Outcome: Ongoing (Interventions Implemented as Appropriate) 02/14/15 1538 02/21/15 0751 02/21/152019 Safety Interventions Safety Precautions/Fall Reduction lighting adjusted for task/safety;environmental modification -- -- Musculoskeletal Interventions Activity/Level of Assistance -- -- up ad zeus;independently Positioning -- -- independent Muscle Strengthening -- activity/mobility promoted;mobility in bed promoted -- Self-Care Promotion -- independence encouraged while providing assistance -- Lee Fall Risk History of Falling -- -- 0 Secondary Diagnosis -- -- 15 Ambulatory Aids -- -- 0 Intravenous Therapy/Heparin/Saline Lock -- -- 0 Gait/Transferring -- -- 0 Mental Status -- -- 0 Score -- -- 15 OTHER Lee Fall Risk -- -- Low Goal: Infection Control Outcome: Ongoing (Interventions Implemented as Appropriate) 02/21/152019 Safety Interventions Isolation Precautions standard precautions maintained Infection Prevention rest/sleep promoted;promote handwashing;nutrition promoted;hydration promoted;environmental surveillance Coping/Psychosocial Response Interventions Counseling verbalization of feelings encouraged;understanding of situation facilitated;relaxation techniques promoted;reassurance provided;problem solving facilitated;personal strengths integrated;goal setting facilitated;emotional support provided;calming techniques promoted Goal: Discharge Needs Assessment Outcome: Ongoing (Interventions Implemented as Appropriate) 02/14/15 1538 02/18/15 0350 Discharge Needs Assessment Concerns to be Addressed -- no discharge needs identified Readmission Within the Last 30 Days no previous admission in last 30 days -- Equipment Needed After Discharge none -- Current Health Anticipated Changes Related to Illness none -- Self-Care Equipment Currently Used at Home none -- Living Environment Transportation Available car;family or friend will provide -- Problem: High-Risk/Critically Ill OB Patient (Adult, Obstetrics) Goal: Signs and symptoms of listed potential problems will be absent or manageable (reference (High-Risk/Critically Ill OB Patient (Adult, Obstetrics)) CPG) Outcome: Ongoing (Interventions Implemented as Appropriate) 02/19/15 0534 High-Risk/Critically Ill OB Problems Assessed (High Risk/Critically Ill OB) all Problems Present (High Risk/Critically Ill OB) none Problem: Second or Third Trimester Bleeding (Adult, Obstetrics) Goal: Signs and symptoms of listed potential problems will be absent or manageable (reference (Second or Third Trimester Bleeding (Adult, Obstetrics)) CPG) OUTCOME EVALUATION NOTE: OUTCOME SUMMARY: Remains undelivered last bleed 02/18/15 am PLAN MOVING FORWARD: Continue care as directed INDIVIDUALIZED FALL PREVENTION: Assistance: independent Supervision: Surveillance: Purposeful rounding CPG OUTCOME EVALUATION: Outcome: Ongoing (Interventions Implemented as Appropriate) 02/18/15 1555 Second or Third Trimester Bleeding Problems Assessed (Second or Third Trimester Bleeding) all Problems Present (Second or Third Trimester Bleeding) none * Plan of Care - Camila Gomez RN - 02/21/2015 8:23 AM EDT Problem: General Plan of Care Goal: Plan of Care Review Outcome: Ongoing (Interventions Implemented as Appropriate) 02/21/15 0723 02/21/15 0751 Coping/Psychosocial Response Interventions Plan of Care Reviewed with -- patient Plan of Care Review Plan of Care Outcome Status ongoing (interventions implemented as appropriate) -- Progress progress toward functional goals as expected -- OUTCOME EVALUATION NOTE: OUTCOME SUMMARY: VSS, [id number] this shift. BG WNL, fasting and 1hr PP each meal. Fluids promoted. Daily NST 1620: Pt reports wiping and seeing bright red blood. RN witnessed, MD Puckett informed. Pt on EFM now for NST PLAN MOVING FORWARD: C/s w BTL on 03/06 INDIVIDUALIZED FALL PREVENTION: Assistance: Call fry in reach Supervision: Hourly rounds Surveillance: Purposeful rounding CPG OUTCOME EVALUATION: Goal: Individualization and Mutuality Outcome: Ongoing (Interventions Implemented as Appropriate) 02/16/15 0454 02/18/15 0350 Individualization Individualize the Plan of Care: -- rest Patient Specific Preferences Keep patient informed of changes in plan of care -- Patient Specific Goals Remain until scheduled c/s at 37 weeks. -- Patient Specific Interventions Daily NST, BS monitoring, Q4VS, monitor for bleeding. -- Mutuality/Individual Preferences What anxieties, fears or concerns do you have about your health or care? None -- What questions do you have about your health or care? None -- What information would help us give you more personalized care? None -- Goal: Fall Prevention-Safe Patient Handling Outcome: Ongoing (Interventions Implemented as Appropriate) 02/14/15 1538 02/21/15 0751 Safety Interventions Safety Precautions/Fall Reduction lighting adjusted for task/safety;environmental modification -- Musculoskeletal Interventions Activity/Level of Assistance -- up in room Positioning -- independent Muscle Strengthening -- activity/mobility promoted;mobility in bed promoted Self-Care Promotion -- independence encouraged while providing assistance Lee Fall Risk History of Falling -- 0 Secondary Diagnosis -- 15 Ambulatory Aids -- 0 Intravenous Therapy/Heparin/Saline Lock -- 20 Gait/Transferring -- 0 Mental Status -- 0 Score -- 35 OTHER Lee Fall Risk -- Med Goal: Infection Control Outcome: Ongoing (Interventions Implemented as Appropriate) 02/21/15 0751 Safety Interventions Isolation Precautions standard precautions maintained Infection Prevention rest/sleep promoted;promote handwashing;nutrition promoted;hydration promoted;environmental surveillance Coping/Psychosocial Response Interventions Counseling calming techniques promoted;emotional support provided;reassurance provided;relaxation techniques promoted Goal: Discharge Needs Assessment Outcome: Ongoing (Interventions Implemented as Appropriate) 02/14/15 1538 02/18/15 0350 Discharge Needs Assessment Concerns to be Addressed -- no discharge needs identified Readmission Within the Last 30 Days no previous admission in last 30 days -- Equipment Needed After Discharge none -- Current Health Anticipated Changes Related to Illness none -- Self-Care Equipment Currently Used at Home none -- Living Environment Transportation Available car;family or friend will provide -- Problem: High-Risk/Critically Ill OB Patient (Adult, Obstetrics) Goal: Signs and symptoms of listed potential problems will be absent or manageable (reference (High-Risk/Critically Ill OB Patient (Adult, Obstetrics)) CPG) Outcome: Ongoing (Interventions Implemented as Appropriate) 02/19/15 0534 High-Risk/Critically Ill OB Problems Assessed (High Risk/Critically Ill OB) all Problems Present (High Risk/Critically Ill OB) none Problem: Second or Third Trimester Bleeding (Adult, Obstetrics) Goal: Signs and symptoms of listed potential problems will be absent or manageable (reference (Second or Third Trimester Bleeding (Adult, Obstetrics)) CPG) OUTCOME EVALUATION NOTE: OUTCOME SUMMARY: Remains undelivered last bleed 02/18/15 am PLAN MOVING FORWARD: Continue care as directed INDIVIDUALIZED FALL PREVENTION: Assistance: independent Supervision: Surveillance: Purposeful rounding CPG OUTCOME EVALUATION: Outcome: Ongoing (Interventions Implemented as Appropriate) 02/18/15 1555 Second or Third Trimester Bleeding Problems Assessed (Second or Third Trimester Bleeding) all Problems Present (Second or Third Trimester Bleeding) none * Plan of Care - Kinza Farley RN - 02/21/2015 7:26 AM EDT Problem: General Plan of Care Goal: Plan of Care Review Outcome: Ongoing (Interventions Implemented as Appropriate) 02/21/15 0723 Coping/Psychosocial Response Interventions Plan of Care Reviewed with patient Plan of Care Review Plan of Care Outcome Status ongoing (interventions implemented as appropriate) Progress progress toward functional goals as expected OUTCOME EVALUATION NOTE: OUTCOME SUMMARY: Slept all night. Was not woken for VS. Awake in morning as per her routine. BS good. Weight obtained, minimal gain in 2 weeks. See flow sheet. PLAN MOVING FORWARD: Monitor BS. Watch for vaginal bleeding. Provide emotional support as needed for prolonged hospitalization. INDIVIDUALIZED FALL PREVENTION: Assistance: Call fry in reach Supervision: Pt will call if needed Surveillance: Purposeful rounding CPG OUTCOME EVALUATION: * Plan of Care - Cristin Edgar RN - 02/20/2015 5:19 AM EDT Problem: General Plan of Care Goal: Plan of Care Review Outcome: Ongoing (Interventions Implemented as Appropriate) 02/18/1534902/19/151928 Coping/Psychosocial Response Interventions Plan of Care Reviewed with -- patient Plan of Care Review Plan of Care Outcome Status ongoing (interventions implemented as appropriate) -- Progress progress toward functional goals as expected -- OUTCOME EVALUATION NOTE: OUTCOME SUMMARY: Pt verbalizes that she is very tired tonight. Stable at this time. Cont to monitorfor vag bleeding. PLAN MOVING FORWARD: Pt to remain bleed free. C/sect is scheduled for February. INDIVIDUALIZED FALL PREVENTION: Assistance: Monitoring blood sugars and adm insulin scheduled and prn. Supervision: None needed. Surveillance: Purposeful rounding. CPG OUTCOME EVALUATION: Goal: Individualization and Mutuality Outcome: Ongoing (Interventions Implemented as Appropriate) 02/16/15 0454 02/18/15349 Individualization Individualize the Plan of Care: -- rest Patient Specific Preferences Keep patient informed of changes in plan of care -- Patient Specific Goals Remain until scheduled c/s at 37 weeks. -- Patient Specific Interventions Daily NST, BS monitoring, Q4VS, monitor for bleeding. -- Mutuality/Individual Preferences What anxieties, fears or concerns do you have about your health or care? None -- What questions do you have about your health or care? None -- What information would help us give you more personalized care? None -- Goal: Fall Prevention-Safe Patient Handling Outcome: Ongoing (Interventions Implemented as Appropriate) 02/14/15 1538 02/17/15 2210 02/19/151928 Safety Interventions Safety Precautions/Fall Reduction lighting adjusted for task/safety;environmental modification -- -- Musculoskeletal Interventions Activity/Level of Assistance -- -- up ad zeus Positioning -- independent -- Muscle Strengthening -- personal routines for BADL/IADL promoted -- Self-Care Promotion -- independence encouraged while providing assistance -- Lee Fall Risk History of Falling -- -- 0 Secondary Diagnosis -- -- 0 Ambulatory Aids -- -- 0 Intravenous Therapy/Heparin/Saline Lock -- -- 20 Gait/Transferring -- -- 0 Mental Status -- -- 0 Score -- -- 20 OTHER Lee Fall Risk -- -- Low Goal: Infection Control Outcome: Ongoing (Interventions Implemented as Appropriate) 02/17/15 2210 02/19/15 0534 Safety Interventions Isolation Precautions -- standard precautions maintained Infection Prevention rest/sleep promoted;promote handwashing;nutrition promoted;hydration promoted;blood glucose management -- Coping/Psychosocial Response Interventions Counseling understanding of situation facilitated;verbalization of feelings encouraged -- Goal: Discharge Needs Assessment Outcome: Ongoing (Interventions Implemented as Appropriate) 02/14/15 1538 02/18/15 0350 Discharge Needs Assessment Concerns to be Addressed -- no discharge needs identified Readmission Within the Last 30 Days no previous admission in last 30 days -- Equipment Needed After Discharge none -- Current Health Anticipated Changes Related to Illness none -- Self-Care Equipment Currently Used at Home none -- Living Environment Transportation Available car;family or friend will provide -- Problem: High-Risk/Critically Ill OB Patient (Adult, Obstetrics) Goal: Signs and symptoms of listed potential problems will be absent or manageable (reference (High-Risk/Critically Ill OB Patient (Adult, Obstetrics)) CPG) Outcome: Ongoing (Interventions Implemented as Appropriate) 02/19/15 0534 High-Risk/Critically Ill OB Problems Assessed (High Risk/Critically Ill OB) all Problems Present (High Risk/Critically Ill OB) none Problem: Second or Third Trimester Bleeding (Adult, Obstetrics) Goal: Signs and symptoms of listed potential problems will be absent or manageable (reference (Second or Third Trimester Bleeding (Adult, Obstetrics)) CPG) OUTCOME EVALUATION NOTE: OUTCOME SUMMARY: Remains undelivered last bleed 02/18/15 am PLAN MOVING FORWARD: Continue care as directed INDIVIDUALIZED FALL PREVENTION: Assistance: independent Supervision: Surveillance: Purposeful rounding CPG OUTCOME EVALUATION: Outcome: Ongoing (Interventions Implemented as Appropriate) 02/18/15 1555 Second or Third Trimester Bleeding Problems Assessed (Second or Third Trimester Bleeding) all Problems Present (Second or Third Trimester Bleeding) none * Plan of Care - Henny Arellano RN - 02/19/2015 5:42 AM EDT Problem: General Plan of Care Goal: Plan of Care Review Outcome: Ongoing (Interventions Implemented as Appropriate) 02/18/1534902/18/152053 Coping/Psychosocial Response Interventions Plan of Care Reviewed with -- patient Plan of Care Review Plan of Care Outcome Status ongoing (interventions implemented as appropriate) -- Progress progress toward functional goals as expected -- OUTCOME EVALUATION NOTE: OUTCOME SUMMARY: Remains undelivered PLAN MOVING FORWARD: Per careplan INDIVIDUALIZED FALL PREVENTION: Assistance: independent Supervision: Remind to call for assistance Surveillance: purposeful rounding CPG OUTCOME EVALUATION: Goal: Individualization and Mutuality Outcome: Ongoing (Interventions Implemented as Appropriate) 02/16/15 0454 02/18/15349 Individualization Individualize the Plan of Care: -- rest Patient Specific Preferences Keep patient informed of changes in plan of care -- Patient Specific Goals Remain until scheduled c/s at 37 weeks. -- Patient Specific Interventions Daily NST, BS monitoring, Q4VS, monitor for bleeding. -- Mutuality/Individual Preferences What anxieties, fears or concerns do you have about your health or care? None -- What questions do you have about your health or care? None -- What information would help us give you more personalized care? None -- Goal: Fall Prevention-Safe Patient Handling Outcome: Ongoing (Interventions Implemented as Appropriate) 02/19/15 0534 Musculoskeletal Interventions Activity/Level of Assistance bedrest with bathroom privileges Goal: Infection Control Outcome: Ongoing (Interventions Implemented as Appropriate) 02/17/15 2210 02/19/15 0534 Safety Interventions Isolation Precautions -- standard precautions maintained Infection Prevention rest/sleep promoted;promote handwashing;nutrition promoted;hydration promoted;blood glucose management -- Goal: Discharge Needs Assessment Outcome: Ongoing (Interventions Implemented as Appropriate) 02/14/15 1538 02/18/15 035 Discharge Needs Assessment Concerns to be Addressed -- no discharge needs identified Readmission Within the Last 30 Days no previous admission in last 30 days -- Problem: High-Risk/Critically Ill OB Patient (Adult, Obstetrics) Goal: Signs and symptoms of listed potential problems will be absent or manageable (reference (High-Risk/Critically Ill OB Patient (Adult, Obstetrics)) CPG) Outcome: Ongoing (Interventions Implemented as Appropriate) 02/19/15 0534 High-Risk/Critically Ill OB Problems Assessed (High Risk/Critically Ill OB) all Problems Present (High Risk/Critically Ill OB) none * Plan of Care - Breonna Dale RN - 02/18/2015 3:57 PM EDT Problem: General Plan of Care Goal: Plan of Care Review Outcome: Ongoing (Interventions Implemented as Appropriate) 02/18/15 0350 Coping/Psychosocial Response Interventions Plan of Care Reviewed with patient Plan of Care Review Plan of Care Outcome Status ongoing (interventions implemented as appropriate) Progress progress toward functional goals as expected Goal: Individualization and Mutuality Outcome: Ongoing (Interventions Implemented as Appropriate) 02/16/15 0454 02/18/15 0350 Individualization Individualize the Plan of Care: -- rest Patient Specific Preferences Keep patient informed of changes in plan of care -- Patient Specific Goals Remain until scheduled c/s at 37 weeks. -- Patient Specific Interventions Daily NST, BS monitoring, Q4VS, monitor for bleeding. -- Mutuality/Individual Preferences What anxieties, fears or concerns do you have about your health or care? None -- What questions do you have about your health or care? None -- What information would help us give you more personalized care? None -- Goal: Fall Prevention-Safe Patient Handling Outcome: Ongoing (Interventions Implemented as Appropriate) 02/14/15 1538 02/17/15 2210 02/18/15 1028 Safety Interventions Safety Precautions/Fall Reduction lighting adjusted for task/safety;environmental modification -- -- Musculoskeletal Interventions Activity/Level of Assistance -- -- up in room Positioning -- independent -- Muscle Strengthening -- personal routines for BADL/IADL promoted -- Self-Care Promotion -- independence encouraged while providing assistance -- Lee Fall Risk History of Falling -- -- 0 Secondary Diagnosis -- -- 0 Ambulatory Aids -- -- 0 Intravenous Therapy/Heparin/Saline Lock -- -- 20 Gait/Transferring -- -- 0 Mental Status -- -- 0 Score -- -- 20 OTHER Lee Fall Risk -- -- Low Goal: Infection Control Outcome: Ongoing (Interventions Implemented as Appropriate) 02/17/15 2210 Safety Interventions Isolation Precautions standard precautions maintained Infection Prevention rest/sleep promoted;promote handwashing;nutrition promoted;hydration promoted;blood glucose management Coping/Psychosocial Response Interventions Counseling understanding of situation facilitated;verbalization of feelings encouraged Goal: Discharge Needs Assessment Outcome: Ongoing (Interventions Implemented as Appropriate) 02/14/15 1538 02/18/15 0350 Discharge Needs Assessment Concerns to be Addressed -- no discharge needs identified Readmission Within the Last 30 Days no previous admission in last 30 days -- Equipment Needed After Discharge none -- Current Health Anticipated Changes Related to Illness none -- Self-Care Equipment Currently Used at Home none -- Living Environment Transportation Available car;family or friend will provide -- Problem: High-Risk/Critically Ill OB Patient (Adult, Obstetrics) Goal: Signs and symptoms of listed potential problems will be absent or manageable (reference (High-Risk/Critically Ill OB Patient (Adult, Obstetrics)) CPG) Outcome: Ongoing (Interventions Implemented as Appropriate) 02/18/15 0350 02/18/15 1555 High-Risk/Critically Ill OB Problems Assessed (High Risk/Critically Ill OB) -- all Problems Present (High Risk/Critically Ill OB) none -- Problem: Second or Third Trimester Bleeding (Adult, Obstetrics) Goal: Signs and symptoms of listed potential problems will be absent or manageable (reference (Second or Third Trimester Bleeding (Adult, Obstetrics)) CPG) Outcome: Ongoing (Interventions Implemented as Appropriate) 02/18/15 1555 Second or Third Trimester Bleeding Problems Assessed (Second or Third Trimester Bleeding) all Problems Present (Second or Third Trimester Bleeding) none Comments: OUTCOME EVALUATION NOTE: OUTCOME SUMMARY: AP pt admitted for bleeding with multiple bleeding episodes throughout admission; pt has not had a bleed this shift. NST as documented, blood glucose checks as documented. Pt declines any bleeding, leaking or uterine activity. PLAN MOVING FORWARD: Monitor fetus, uterine activity, bleeding. INDIVIDUALIZED FALL PREVENTION: Assistance: As needed Supervision: None Surveillance: Purposeful rounding CPG OUTCOME EVALUATION: * Plan of Care - Patsy Perez RN - 02/18/2015 4:19 AM EDT Pt called nurse to room with complaint of bleeding. Blood noted on underwear and in toilet. Pt cleaned herself up and put on a pad. Pt denies cramping, contractions, or abdominal pain. EFM and TOCO applied. Pt is not currently bleeding. Dr. Joseph notified and is aware. 0445: Pt has had no further bleeding, cramping, or contractions. EFM and TOCO strip reviewed with Dr. Joseph. EFM and TOCO off per Dr. Joseph. * Plan of Care - Patsy Perez RN - 02/18/2015 3:53 AM EDT Problem: General Plan of Care Goal: Plan of Care Review Outcome: Ongoing (Interventions Implemented as Appropriate) 02/18/15 0350 Coping/Psychosocial Response Interventions Plan of Care Reviewed with patient Plan of Care Review Plan of Care Outcome Status ongoing (interventions implemented as appropriate) Progress progress toward functional goals as expected OUTCOME EVALUATION NOTE: OUTCOME SUMMARY: Pt has rested throughout the night with no complaints. VSS and assessment within normal limits. Pt denies loss of fluid, vaginal bleeding, cramping, and contractions. She feels good movement. PLAN MOVING FORWARD: Continue to monitor vs and maternal and well being. INDIVIDUALIZED FALL PREVENTION: Assistance: Up ad zeus Supervision: none Surveillance: Purposeful rounding CPG OUTCOME EVALUATION: Goal: Individualization and Mutuality Outcome: Ongoing (Interventions Implemented as Appropriate) 02/18/15 0350 Individualization Individualize the Plan of Care: rest Goal: Fall Prevention-Safe Patient Handling Outcome: Ongoing (Interventions Implemented as Appropriate) 02/14/15 1538 02/17/15 2210 Safety Interventions Safety Precautions/Fall Reduction lighting adjusted for task/safety;environmental modification -- Musculoskeletal Interventions Activity/Level of Assistance -- up ad zeus;independently Positioning -- independent Muscle Strengthening -- personal routines for BADL/IADL promoted Self-Care Promotion -- independence encouraged while providing assistance Lee Fall Risk History of Falling -- 0 Secondary Diagnosis -- 15 Ambulatory Aids -- 0 Intravenous Therapy/Heparin/Saline Lock -- 20 Gait/Transferring -- 0 Mental Status -- 0 Score -- 35 OTHER Lee Fall Risk -- Med Goal: Infection Control Outcome: Ongoing (Interventions Implemented as Appropriate) 02/17/15 2210 Safety Interventions Isolation Precautions standard precautions maintained Infection Prevention rest/sleep promoted;promote handwashing;nutrition promoted;hydration promoted;blood glucose management Coping/Psychosocial Response Interventions Counseling understanding of situation facilitated;verbalization of feelings encouraged Goal: Discharge Needs Assessment Outcome: Ongoing (Interventions Implemented as Appropriate) 02/14/15 1538 02/18/15 0350 Discharge Needs Assessment Concerns to be Addressed -- no discharge needs identified Readmission Within the Last 30 Days no previous admission in last 30 days -- Equipment Needed After Discharge none -- Current Health Anticipated Changes Related to Illness none -- Self-Care Equipment Currently Used at Home none -- Living Environment Transportation Available car;family or friend will provide -- Problem: High-Risk/Critically Ill OB Patient (Adult, Obstetrics) Goal: Signs and symptoms of listed potential problems will be absent or manageable (reference (High-Risk/Critically Ill OB Patient (Adult, Obstetrics)) CPG) Outcome: Ongoing (Interventions Implemented as Appropriate) 02/18/15 0350 High-Risk/Critically Ill OB Problems Assessed (High Risk/Critically Ill OB) all Problems Present (High Risk/Critically Ill OB) none Problem: Second or Third Trimester Bleeding (Adult, Obstetrics) Goal: Signs and symptoms of listed potential problems will be absent or manageable (reference (Second or Third Trimester Bleeding (Adult, Obstetrics)) CPG) Outcome: Ongoing (Interventions Implemented as Appropriate) 02/18/15 0350 Second or Third Trimester Bleeding Problems Assessed (Second or Third Trimester Bleeding) all Problems Present (Second or Third Trimester Bleeding) none * Plan of Care - Camila Gomez RN - 02/17/2015 10:43 AM EDT Problem: General Plan of Care Goal: Plan of Care Review Outcome: Ongoing (Interventions Implemented as Appropriate) 02/14/15 1538 02/17/15 0731 Coping/Psychosocial Response Interventions Plan of Care Reviewed with -- patient Plan of Care Review Plan of Care Outcome Status ongoing (interventions implemented as appropriate) -- Progress progress toward functional goals as expected -- OUTCOME EVALUATION NOTE: OUTCOME SUMMARY: Pt erick carb control diet. NST today. VSS. Pt denies leaking fluid, states she is also not bleeding.Reports baby movement WNL. PLAN MOVING FORWARD: Stay until sched c/s INDIVIDUALIZED FALL PREVENTION: Assistance: Call fry in reach Supervision: Hourly rounds Surveillance: Purposeful roundning CPG OUTCOME EVALUATION: Goal: Individualization and Mutuality Outcome: Ongoing (Interventions Implemented as Appropriate) 02/16/15 0454 Individualization Individualize the Plan of Care: Monitor for bleeding, monitor BS Patient Specific Preferences Keep patient informed of changes in plan of care Patient Specific Goals Remain until scheduled c/s at 37 weeks. Patient Specific Interventions Daily NST, BS monitoring, Q4VS, monitor for bleeding. Mutuality/Individual Preferences What anxieties, fears or concerns do you have about your health or care? None What questions do you have about your health or care? None What information would help us give you more personalized care? None Goal: Fall Prevention-Safe Patient Handling Outcome: Ongoing (Interventions Implemented as Appropriate) 02/14/15 1538 02/17/15 0731 Safety Interventions Safety Precautions/Fall Reduction lighting adjusted for task/safety;environmental modification -- Musculoskeletal Interventions Activity/Level of Assistance -- independently;up ad zeus Positioning -- independent Muscle Strengthening -- activity/mobility promoted;mobility in bed promoted Self-Care Promotion -- independence encouraged while providing assistance Lee Fall Risk History of Falling -- 0 Secondary Diagnosis -- 15 Ambulatory Aids -- 0 Intravenous Therapy/Heparin/Saline Lock -- 20 Gait/Transferring -- 0 Mental Status -- 0 Score -- 35 OTHER Lee Fall Risk -- Med Goal: Infection Control Outcome: Ongoing (Interventions Implemented as Appropriate) 02/17/15 0731 Safety Interventions Isolation Precautions standard precautions maintained Infection Prevention rest/sleep promoted;promote handwashing;nutrition promoted;environmental surveillance;hydration promoted;blood glucose management Coping/Psychosocial Response Interventions Counseling calming techniques promoted;emotional support provided;reassurance provided;relaxation techniques promoted Goal: Discharge Needs Assessment Outcome: Ongoing (Interventions Implemented as Appropriate) 02/14/15 1538 Discharge Needs Assessment Concerns to be Addressed no discharge needs identified Readmission Within the Last 30 Days no previous admission in last 30 days Equipment Needed After Discharge none Current Health Anticipated Changes Related to Illness none Self-Care Equipment Currently Used at Home none Living Environment Transportation Available car;family or friend will provide Problem: High-Risk/Critically Ill OB Patient (Adult, Obstetrics) Goal: Signs and symptoms of listed potential problems will be absent or manageable (reference (High-Risk/Critically Ill OB Patient (Adult, Obstetrics)) CPG) Outcome: Ongoing (Interventions Implemented as Appropriate) 02/14/15 1538 High-Risk/Critically Ill OB Problems Assessed (High Risk/Critically Ill OB) all Problems Present (High Risk/Critically Ill OB) none Problem: Second or Third Trimester Bleeding (Adult, Obstetrics) Goal: Signs and symptoms of listed potential problems will be absent or manageable (reference (Second or Third Trimester Bleeding (Adult, Obstetrics)) CPG) Outcome: Ongoing (Interventions Implemented as Appropriate) 02/14/15 1538 Second or Third Trimester Bleeding Problems Assessed (Second or Third Trimester Bleeding) all Problems Present (Second or Third Trimester Bleeding) none * Plan of Care - Kinza Farley RN - 02/17/2015 7:31 AM EDT Problem: General Plan of Care Goal: Plan of Care Review Outcome: Ongoing (Interventions Implemented as Appropriate) 02/14/15 1538 02/16/15 2139 Coping/Psychosocial Response Interventions Plan of Care Reviewed with -- patient Plan of Care Review Plan of Care Outcome Status ongoing (interventions implemented as appropriate) -- Progress progress toward functional goals as expected -- OUTCOME EVALUATION NOTE: OUTCOME SUMMARY: Quiet night/rested well. No complaints. VSS. FBS 91. PLAN MOVING FORWARD: Continue to monitor for bleeding. Support pt emotionally due to prolonged hospitalization. INDIVIDUALIZED FALL PREVENTION: Assistance: None needed/gait steady Supervision: Will call for assistance as needed Surveillance: Purposeful rounding and bedside report CPG OUTCOME EVALUATION: * Plan of Care - Camila Gomez RN - 02/16/2015 9:34 AM EDT Problem: General Plan of Care Goal: Plan of Care Review Outcome: Ongoing (Interventions Implemented as Appropriate) 02/14/15 1538 02/16/15 0815 Coping/Psychosocial Response Interventions Plan of Care Reviewed with -- patient Plan of Care Review Plan of Care Outcome Status ongoing (interventions implemented as appropriate) -- Progress progress toward functional goals as expected -- OUTCOME EVALUATION NOTE: OUTCOME SUMMARY: BS fasting and 1hr PP cont. Pt erick carb control diet. Agrees to alert RN if she has bleeding today PLAN MOVING FORWARD: Plan for c/s at 37 weeks INDIVIDUALIZED FALL PREVENTION: Assistance: Call fry in reach Supervision: Hourly rounds Surveillance: Purposeful rounding CPG OUTCOME EVALUATION: Goal: Individualization and Mutuality Outcome: Ongoing (Interventions Implemented as Appropriate) 02/16/15 0454 Individualization Individualize the Plan of Care: Monitor for bleeding, monitor BS Patient Specific Preferences Keep patient informed of changes in plan of care Patient Specific Goals Remain until scheduled c/s at 37 weeks. Patient Specific Interventions Daily NST, BS monitoring, Q4VS, monitor for bleeding. Mutuality/Individual Preferences What anxieties, fears or concerns do you have about your health or care? None What questions do you have about your health or care? None What information would help us give you more personalized care? None Goal: Fall Prevention-Safe Patient Handling Outcome: Ongoing (Interventions Implemented as Appropriate) 02/14/15153702/15/15202602/16/15 0815 Safety Interventions Safety Precautions/Fall Reduction lighting adjusted for task/safety;environmental modification -- -- Musculoskeletal Interventions Activity/Level of Assistance -- -- up in room;independently Positioning -- -- independent Muscle Strengthening -- mobility in bed promoted;personal routines for BADL/IADL promoted -- Self-Care Promotion -- -- independence encouraged while providing assistance Lee Fall Risk History of Falling -- -- 0 Secondary Diagnosis -- -- 0 Ambulatory Aids -- -- 0 Intravenous Therapy/Heparin/Saline Lock -- -- 20 Gait/Transferring -- -- 0 Mental Status -- -- 0 Score -- -- 20 OTHER Lee Fall Risk -- -- Low Goal: Infection Control Outcome: Ongoing (Interventions Implemented as Appropriate) 02/16/15 0815 Safety Interventions Isolation Precautions standard precautions maintained Infection Prevention rest/sleep promoted;promote handwashing;nutrition promoted;hydration promoted;environmental surveillance Coping/Psychosocial Response Interventions Counseling calming techniques promoted;emotional support provided;reassurance provided;relaxation techniques promoted Goal: Discharge Needs Assessment Outcome: Ongoing (Interventions Implemented as Appropriate) 02/14/15 1538 Discharge Needs Assessment Concerns to be Addressed no discharge needs identified Readmission Within the Last 30 Days no previous admission in last 30 days Equipment Needed After Discharge none Current Health Anticipated Changes Related to Illness none Self-Care Equipment Currently Used at Home none Living Environment Transportation Available car;family or friend will provide Problem: High-Risk/Critically Ill OB Patient (Adult, Obstetrics) Goal: Signs and symptoms of listed potential problems will be absent or manageable (reference (High-Risk/Critically Ill OB Patient (Adult, Obstetrics)) CPG) Outcome: Ongoing (Interventions Implemented as Appropriate) 02/14/15 1538 High-Risk/Critically Ill OB Problems Assessed (High Risk/Critically Ill OB) all Problems Present (High Risk/Critically Ill OB) none Problem: Second or Third Trimester Bleeding (Adult, Obstetrics) Goal: Signs and symptoms of listed potential problems will be absent or manageable (reference (Second or Third Trimester Bleeding (Adult, Obstetrics)) CPG) Outcome: Ongoing (Interventions Implemented as Appropriate) 02/14/15 153 Second or Third Trimester Bleeding Problems Assessed (Second or Third Trimester Bleeding) all Problems Present (Second or Third Trimester Bleeding) none * Plan of Care - Chiara Zavala - 02/16/2015 4:59 AM EDT Problem: General Plan of Care Goal: Plan of Care Review Outcome: Ongoing (Interventions Implemented as Appropriate) 02/14/15 1538 02/15/152026 Coping/Psychosocial Response Interventions Plan of Care Reviewed with -- patient Plan of Care Review Plan of Care Outcome Status ongoing (interventions implemented as appropriate) -- Progress progress toward functional goals as expected -- OUTCOME EVALUATION NOTE: OUTCOME SUMMARY: No bleeding on this shift. Reported feeling good movement. Denies loss of fluid or contractions. BS WNL. VSS. PLAN MOVING FORWARD: Continue to monitor patient for bleeding. Daily NST. VS Q4. INDIVIDUALIZED FALL PREVENTION: Assistance: Independent. Supervision: Independent. Patient compliant with calling. Surveillance: Purposeful rounding CPG OUTCOME EVALUATION: Goal: Individualization and Mutuality Outcome: Ongoing (Interventions Implemented as Appropriate) 02/16/15 0454 Individualization Individualize the Plan of Care: Monitor for bleeding, monitor BS Patient Specific Preferences Keep patient informed of changes in plan of care Patient Specific Goals Remain until scheduled c/s at 37 weeks. Patient Specific Interventions Daily NST, BS monitoring, Q4VS, monitor for bleeding. Mutuality/Individual Preferences What anxieties, fears or concerns do you have about your health or care? None What questions do you have about your health or care? None What information would help us give you more personalized care? None Goal: Fall Prevention-Safe Patient Handling Outcome: Ongoing (Interventions Implemented as Appropriate) 02/14/15153702/15/152026 Safety Interventions Safety Precautions/Fall Reduction lighting adjusted for task/safety;environmental modification -- Musculoskeletal Interventions Activity/Level of Assistance -- up in room;independently Positioning -- independent Muscle Strengthening -- mobility in bed promoted;personal routines for BADL/IADL promoted Self-Care Promotion -- personal routines for BADL/IADL promoted;independence encouraged while providing assistance Lee Fall Risk History of Falling -- 0 Secondary Diagnosis -- 0 Ambulatory Aids -- 0 Intravenous Therapy/Heparin/Saline Lock -- 20 Gait/Transferring -- 0 Mental Status -- 0 Score -- 20 OTHER Lee Fall Risk -- Low Goal: Infection Control Outcome: Ongoing (Interventions Implemented as Appropriate) 02/15/152026 Safety Interventions Isolation Precautions standard precautions maintained Infection Prevention blood glucose management;rest/sleep promoted;promote handwashing;hydration promoted;nutrition promoted Coping/Psychosocial Response Interventions Counseling verbalization of feelings encouraged;understanding of situation facilitated;personal strengths integrated;emotional support provided Goal: Discharge Needs Assessment Outcome: Ongoing (Interventions Implemented as Appropriate) 02/14/151537 Discharge Needs Assessment Concerns to be Addressed no discharge needs identified Readmission Within the Last 30 Days no previous admission in last 30 days Equipment Needed After Discharge none Current Health Anticipated Changes Related to Illness none Self-Care Equipment Currently Used at Home none Living Environment Transportation Available car;family or friend will provide Problem: High-Risk/Critically Ill OB Patient (Adult, Obstetrics) Goal: Signs and symptoms of listed potential problems will be absent or manageable (reference (High-Risk/Critically Ill OB Patient (Adult, Obstetrics)) CPG) Outcome: Ongoing (Interventions Implemented as Appropriate) 02/14/151537 High-Risk/Critically Ill OB Problems Assessed (High Risk/Critically Ill OB) all Problems Present (High Risk/Critically Ill OB) none Problem: Second or Third Trimester Bleeding (Adult, Obstetrics) Goal: Signs and symptoms of listed potential problems will be absent or manageable (reference (Second or Third Trimester Bleeding (Adult, Obstetrics)) CPG) Outcome: Ongoing (Interventions Implemented as Appropriate) 02/14/15 1538 Second or Third Trimester Bleeding Problems Assessed (Second or Third Trimester Bleeding) all Problems Present (Second or Third Trimester Bleeding) none * Plan of Care - Nicol Guerra RN - 02/15/2015 3:44 PM EDT Problem: General Plan of Care Goal: Plan of Care Review Outcome: Ongoing (Interventions Implemented as Appropriate) 02/14/15 15302/15/15 0900 Coping/Psychosocial Response Interventions Plan of Care Reviewed with -- patient Plan of Care Review Plan of Care Outcome Status ongoing (interventions implemented as appropriate) -- Progress progress toward functional goals as expected -- OUTCOME EVALUATION NOTE: OUTCOME SUMMARY: pt reports no abd pain or discomfort this shift, reactive NST this am, no further vaginal bleeding noted this shift, blood sugars remain in good control. PLAN MOVING FORWARD: Continue to observe for vaginal bleeding and Assess well being and plan to deliver at 37 week rc/s if remains stable. INDIVIDUALIZED FALL PREVENTION: Bed in low postioning Assistance: independent Supervision: None needed remains independent Surveillance: purposeful rounding CPG OUTCOME EVALUATION: progressing toward goals Goal: Individualization and Mutuality Outcome: Ongoing (Interventions Implemented as Appropriate) 02/07/15 1237 02/13/15 1520 Individualization Individualize the Plan of Care: Monitor for bleeding; monitor glycemic control -- Patient Specific Preferences Update patient regarding how baby is doing; cluster care -- Patient Specific Goals Term delivery -- Patient Specific Interventions Cluster care, daily NST, monitor for bleeding, glycemic checks per MD order -- Mutuality/Individual Preferences What anxieties, fears or concerns do you have about your health or care? -- None What questions do you have about your health or care? None at present; encourage patient to verbalize needs -- What information would help us give you more personalized care? None at present -- Goal: Fall Prevention-Safe Patient Handling Outcome: Ongoing (Interventions Implemented as Appropriate) 02/14/15 1538 02/15/15 0900 Safety Interventions Safety Precautions/Fall Reduction lighting adjusted for task/safety;environmental modification -- Musculoskeletal Interventions Activity/Level of Assistance -- up in room Positioning -- independent Muscle Strengthening -- activity/mobility promoted Self-Care Promotion -- independence encouraged while providing assistance Lee Fall Risk History of Falling -- 0 Secondary Diagnosis -- 0 Ambulatory Aids -- 0 Intravenous Therapy/Heparin/Saline Lock -- 20 Gait/Transferring -- 0 Mental Status -- 0 Score -- 20 OTHER Lee Fall Risk -- Low Goal: Infection Control Outcome: Ongoing (Interventions Implemented as Appropriate) 02/15/15 0900 Safety Interventions Isolation Precautions standard precautions maintained Infection Prevention blood glucose management Coping/Psychosocial Response Interventions Counseling emotional support provided;calming techniques promoted Goal: Discharge Needs Assessment Outcome: Ongoing (Interventions Implemented as Appropriate) 02/14/15 1538 Discharge Needs Assessment Concerns to be Addressed no discharge needs identified Readmission Within the Last 30 Days no previous admission in last 30 days Equipment Needed After Discharge none Current Health Anticipated Changes Related to Illness none Self-Care Equipment Currently Used at Home none Living Environment Transportation Available car;family or friend will provide Problem: High-Risk/Critically Ill OB Patient (Adult, Obstetrics) Goal: Signs and symptoms of listed potential problems will be absent or manageable (reference (High-Risk/Critically Ill OB Patient (Adult, Obstetrics)) CPG) Outcome: Ongoing (Interventions Implemented as Appropriate) 02/14/15 1538 High-Risk/Critically Ill OB Problems Assessed (High Risk/Critically Ill OB) all Problems Present (High Risk/Critically Ill OB) none Problem: Second or Third Trimester Bleeding (Adult, Obstetrics) Goal: Signs and symptoms of listed potential problems will be absent or manageable (reference (Second or Third Trimester Bleeding (Adult, Obstetrics)) CPG) Outcome: Ongoing (Interventions Implemented as Appropriate) 02/14/15 1538 Second or Third Trimester Bleeding Problems Assessed (Second or Third Trimester Bleeding) all Problems Present (Second or Third Trimester Bleeding) none * Plan of Care - Nadya Alexander RN - 02/15/2015 6:30 AM EDT Problem: General Plan of Care Goal: Plan of Care Review Outcome: Ongoing (Interventions Implemented as Appropriate) 02/14/15 1538 02/14/15 1915 Coping/Psychosocial Response Interventions Plan of Care Reviewed with -- patient Plan of Care Review Plan of Care Outcome Status ongoing (interventions implemented as appropriate) -- Progress progress toward functional goals as expected -- OUTCOME EVALUATION NOTE: OUTCOME SUMMARY: VSS, afebrile. Pt doing well except for small bleed last night. During change of shift report, she noted dime size spot bright red blood on under wear and on TP after voiding. She then tired to have a BM and noticed a few drops of blood in the toilet. Pt was put on monitor for NSt, which was reviewed by Dr. Burnham and Rama and she was taken off monitor. She denied any further bleeding during the night and slept well. She denies contractions and LOF. Denied pain. See flow sheet for more info. PLAN MOVING FORWARD: Continue to assess and monitor bleeding and well being. Monitor FSBG and offer emotional support. INDIVIDUALIZED FALL PREVENTION: Assistance: Independent. Supervision: Pt on own. Encouraged to call with any changes, concerns or questions. Surveillance: Purposeful rounding CPG OUTCOME EVALUATION: Goal: Individualization and Mutuality Outcome: Ongoing (Interventions Implemented as Appropriate) 02/07/15 1237 02/13/15 1520 Individualization Individualize the Plan of Care: Monitor for bleeding; monitor glycemic control -- Patient Specific Preferences Update patient regarding how baby is doing; cluster care -- Patient Specific Goals Term delivery -- Patient Specific Interventions Cluster care, daily NST, monitor for bleeding, glycemic checks per MD order -- Mutuality/Individual Preferences What anxieties, fears or concerns do you have about your health or care? -- None What questions do you have about your health or care? None at present; encourage patient to verbalize needs -- What information would help us give you more personalized care? None at present -- Goal: Fall Prevention-Safe Patient Handling Outcome: Ongoing (Interventions Implemented as Appropriate) 02/14/15 0819 02/14/15 1538 02/14/15 1915 Safety Interventions Safety Precautions/Fall Reduction -- lighting adjusted for task/safety;environmental modification -- Musculoskeletal Interventions Activity/Level of Assistance -- -- bedrest with bathroom privileges;independently Positioning -- -- independent Muscle Strengthening -- -- strengthening exercises performed;mobility in bed promoted Self-Care Promotion independence encouraged while providing assistance -- -- Jesus Fall Risk History of Falling -- -- 0 Secondary Diagnosis -- -- 0 Ambulatory Aids -- -- 0 Intravenous Therapy/Heparin/Saline Lock -- -- 20 Gait/Transferring -- -- 0 Mental Status -- -- 0 Score -- -- 20 OTHER Lee Fall Risk Low -- -- Goal: Infection Control Outcome: Ongoing (Interventions Implemented as Appropriate) 02/14/15 0819 02/14/15 1915 Safety Interventions Isolation Precautions -- standard precautions maintained Infection Prevention environmental surveillance;hydration promoted;blood glucose management;nutrition promoted;promote handwashing;rest/sleep promoted -- Coping/Psychosocial Response Interventions Counseling -- emotional support provided;verbalization of feelings encouraged;reassurance provided Problem: High-Risk/Critically Ill OB Patient (Adult, Obstetrics) Goal: Signs and symptoms of listed potential problems will be absent or manageable (reference (High-Risk/Critically Ill OB Patient (Adult, Obstetrics)) CPG) Outcome: Ongoing (Interventions Implemented as Appropriate) 02/14/15 1538 High-Risk/Critically Ill OB Problems Assessed (High Risk/Critically Ill OB) all Problems Present (High Risk/Critically Ill OB) none Problem: Second or Third Trimester Bleeding (Adult, Obstetrics) Goal: Signs and symptoms of listed potential problems will be absent or manageable (reference (Second or Third Trimester Bleeding (Adult, Obstetrics)) CPG) Outcome: Ongoing (Interventions Implemented as Appropriate) 02/14/15 1538 Second or Third Trimester Bleeding Problems Assessed (Second or Third Trimester Bleeding) all Problems Present (Second or Third Trimester Bleeding) none * Plan of Care - Nelly Jackson RN - 02/14/2015 3:47 PM EDT Problem: General Plan of Care Goal: Plan of Care Review Outcome: Ongoing (Interventions Implemented as Appropriate) 02/14/15 1538 Coping/Psychosocial Response Interventions Plan of Care Reviewed with patient Plan of Care Review Plan of Care Outcome Status ongoing (interventions implemented as appropriate) Progress progress toward functional goals as expected OUTCOME EVALUATION NOTE: OUTCOME SUMMARY: Patient vital signs stable. Patient denies any bleeding, contractions or loss of fluid. Patient feeling active movement. NST done and reactive(see doc flowsheet). Patient stating abdomen is a little tender on palpation but it has been for a couple days. Patient attributes it to bumping her belly on bathroom sink. Patient ambulating independently in room. Blood sugars checked after 1 hr after meals and WNL. Patient working from room today on laptop and conference calls this morning. PLAN MOVING FORWARD: Continue to monitor vitals signs. Continue to check blood sugars. Monitor for vaginal bleeding and s/s of labor. INDIVIDUALIZED FALL PREVENTION: Assistance: Bedrest with bathroom privileges. Supervision: Call fry within reach. Patient rings appropriately. Surveillance: Nursing bedside exchange. Purposeful rounding. C[facility] OUTCOME EVALUATION: Goal: Individualization and Mutuality Outcome: Ongoing (Interventions Implemented as Appropriate) Goal: Fall Prevention-Safe Patient Handling Outcome: Ongoing (Interventions Implemented as Appropriate) 02/14/1581802/14/151537 Safety Interventions Safety Precautions/Fall Reduction -- lighting adjusted for task/safety;environmental modification Musculoskeletal Interventions Activity/Level of Assistance bedrest with bathroom privileges;independently -- Positioning independent -- Muscle Strengthening mobility in bed promoted;activity/mobility promoted;personal routines for BADL/IADL promoted -- Self-Care Promotion independence encouraged while providing assistance -- Lee Fall Risk History of Falling 0 -- Secondary Diagnosis 0 -- Ambulatory Aids 0 -- Intravenous Therapy/Heparin/Saline Lock 20 -- Gait/Transferring 0 -- Mental Status 0 -- Score 20 -- OTHER Lee Fall Risk Low -- Goal: Infection Control Outcome: Ongoing (Interventions Implemented as Appropriate) 02/14/15818 Safety Interventions Isolation Precautions standard precautions maintained Infection Prevention environmental surveillance;hydration promoted;blood glucose management;nutrition promoted;promote handwashing;rest/sleep promoted Coping/Psychosocial Response Interventions Counseling emotional support provided;verbalization of feelings encouraged;understanding of situation facilitated;relaxation techniques promoted;reassurance provided;personal strengths integrated Goal: Discharge Needs Assessment Outcome: Ongoing (Interventions Implemented as Appropriate) 02/14/151537 Discharge Needs Assessment Concerns to be Addressed no discharge needs identified Readmission Within the Last 30 Days no previous admission in last 30 days Equipment Needed After Discharge none Current Health Anticipated Changes Related to Illness none Self-Care Equipment Currently Used at Home none Living Environment Transportation Available car;family or friend will provide Problem: High-Risk/Critically Ill OB Patient (Adult, Obstetrics) Goal: Signs and symptoms of listed potential problems will be absent or manageable (reference (High-Risk/Critically Ill OB Patient (Adult, Obstetrics)) CPG) Outcome: Ongoing (Interventions Implemented as Appropriate) 02/14/15 1538 High-Risk/Critically Ill OB Problems Assessed (High Risk/Critically Ill OB) all Problems Present (High Risk/Critically Ill OB) none Problem: Second or Third Trimester Bleeding (Adult, Obstetrics) Goal: Signs and symptoms of listed potential problems will be absent or manageable (reference (Second or Third Trimester Bleeding (Adult, Obstetrics)) CPG) Outcome: Ongoing (Interventions Implemented as Appropriate) 02/14/15 1538 Second or Third Trimester Bleeding Problems Assessed (Second or Third Trimester Bleeding) all Problems Present (Second or Third Trimester Bleeding) none * Plan of Care - Nadya Alexander RN - 02/14/2015 5:02 AM EDT Problem: General Plan of Care Goal: Plan of Care Review Outcome: Ongoing (Interventions Implemented as Appropriate) 02/13/15 1520 02/13/15 2115 Coping/Psychosocial Response Interventions Plan of Care Reviewed with -- patient Plan of Care Review Plan of Care Outcome Status ongoing (interventions implemented as appropriate) -- Progress progress toward functional goals as expected -- OUTCOME EVALUATION NOTE: OUTCOME SUMMARY: VSS, afebrile. Pt had no complaints last night. She denied any bleeding, LOF or contractions. + movement. Pt continues to do well with lengthy hospital stay and is hopeful she will make it to term. See flow sheet for more info. PLAN MOVING FORWARD: Continue to monitor BG, bleeding, signs/symptoms of labor. INDIVIDUALIZED FALL PREVENTION: Assistance: Pt independent. Supervision: Encouraged to call with any changes, questions or concerns. Surveillance: Purposeful rounding. CPG OUTCOME EVALUATION: Goal: Individualization and Mutuality Outcome: Ongoing (Interventions Implemented as Appropriate) 02/07/15 1237 02/13/15 1520 Individualization Individualize the Plan of Care: Monitor for bleeding; monitor glycemic control -- Patient Specific Preferences Update patient regarding how baby is doing; cluster care -- Patient Specific Goals Term delivery -- Patient Specific Interventions Cluster care, daily NST, monitor for bleeding, glycemic checks per MD order -- Mutuality/Individual Preferences What anxieties, fears or concerns do you have about your health or care? -- None What questions do you have about your health or care? None at present; encourage patient to verbalize needs -- What information would help us give you more personalized care? None at present -- Goal: Fall Prevention-Safe Patient Handling Outcome: Ongoing (Interventions Implemented as Appropriate) 01/29/15 17102/13/1582202/13/152114 Safety Interventions Safety Precautions/Fall Reduction lighting adjusted for task/safety;low bed;nonskid shoes/slippers when out of bed -- -- Musculoskeletal Interventions Activity/Level of Assistance -- -- up ad zeus;ambulated;bedrest with bathroom privileges;independently Positioning -- independent -- Muscle Strengthening -- mobility in bed promoted;personal routines for BADL/IADL promoted -- Self-Care Promotion -- independence encouraged while providing assistance -- Lee Fall Risk History of Falling -- -- 0 Secondary Diagnosis -- -- 0 Ambulatory Aids -- -- 0 Intravenous Therapy/Heparin/Saline Lock -- -- 20 Gait/Transferring -- -- 0 Mental Status -- -- 0 Score -- -- 20 OTHER Lee Fall Risk -- Low -- Goal: Infection Control Outcome: Ongoing (Interventions Implemented as Appropriate) 02/13/1582202/13/152114 Safety Interventions Isolation Precautions -- standard precautions maintained Infection Prevention -- rest/sleep promoted;promote handwashing;nutrition promoted;hydration promoted;environmental surveillance;blood glucose management Coping/Psychosocial Response Interventions Counseling calming techniques promoted;emotional support provided -- Problem: High-Risk/Critically Ill OB Patient (Adult, Obstetrics) Goal: Signs and symptoms of listed potential problems will be absent or manageable (reference (High-Risk/Critically Ill OB Patient (Adult, Obstetrics)) CPG) Outcome: Ongoing (Interventions Implemented as Appropriate) 02/13/15 1520 High-Risk/Critically Ill OB Problems Assessed (High Risk/Critically Ill OB) all Problems Present (High Risk/Critically Ill OB) none Problem: Second or Third Trimester Bleeding (Adult, Obstetrics) Goal: Signs and symptoms of listed potential problems will be absent or manageable (reference (Second or Third Trimester Bleeding (Adult, Obstetrics)) CPG) Outcome: Ongoing (Interventions Implemented as Appropriate) 02/13/15 1520 Second or Third Trimester Bleeding Problems Assessed (Second or Third Trimester Bleeding) all Problems Present (Second or Third Trimester Bleeding) none * Plan of Care - Jessika Dent RN - 02/13/2015 3:25 PM EDT Problem: General Plan of Care Goal: Plan of Care Review Outcome: Ongoing (Interventions Implemented as Appropriate) 02/13/15 1520 Coping/Psychosocial Response Interventions Plan of Care Reviewed with patient Plan of Care Review Plan of Care Outcome Status ongoing (interventions implemented as appropriate) Progress progress toward functional goals as expected OUTCOME EVALUATION NOTE: OUTCOME SUMMARY: VS stable. No bleeding, ctx, or loss of fluid. NST reactive see note. Pt reports good movement throughout shift. Glycemic control per orders. New type and screen drawn. Pt showered. Pt reports being in good spirits d/t spending time with family yesterday. PLAN MOVING FORWARD: Continue to monitor for bleeding, ctx, or loss of fluid. NST daily. Continue to monitor VS. INDIVIDUALIZED FALL PREVENTION: Assistance: Independent, calls appropriately for assist. Supervision: Independent. Surveillance: VS, BS, purposeful rounding per unit protocol CPG OUTCOME EVALUATION: Goal: Individualization and Mutuality Outcome: Ongoing (Interventions Implemented as Appropriate) 02/07/15 1237 02/13/15 1520 Individualization Individualize the Plan of Care: Monitor for bleeding; monitor glycemic control -- Patient Specific Preferences Update patient regarding how baby is doing; cluster care -- Patient Specific Goals Term delivery -- Patient Specific Interventions Cluster care, daily NST, monitor for bleeding, glycemic checks per MD order -- Mutuality/Individual Preferences What anxieties, fears or concerns do you have about your health or care? -- None What questions do you have about your health or care? None at present; encourage patient to verbalize needs -- What information would help us give you more personalized care? None at present -- Goal: Fall Prevention-Safe Patient Handling Outcome: Ongoing (Interventions Implemented as Appropriate) 01/29/15 1714 02/13/15 0823 Safety Interventions Safety Precautions/Fall Reduction lighting adjusted for task/safety;low bed;nonskid shoes/slippers when out of bed -- Musculoskeletal Interventions Activity/Level of Assistance -- bedrest with bathroom privileges Positioning -- independent Muscle Strengthening -- mobility in bed promoted;personal routines for BADL/IADL promoted Self-Care Promotion -- independence encouraged while providing assistance Lee Fall Risk History of Falling -- 0 Secondary Diagnosis -- 0 Ambulatory Aids -- 0 Intravenous Therapy/Heparin/Saline Lock -- 20 Gait/Transferring -- 0 Mental Status -- 0 Score -- 20 OTHER Lee Fall Risk -- Low Goal: Infection Control Outcome: Ongoing (Interventions Implemented as Appropriate) 02/13/15 0823 Safety Interventions Isolation Precautions standard precautions maintained Infection Prevention rest/sleep promoted Coping/Psychosocial Response Interventions Counseling calming techniques promoted;emotional support provided Goal: Discharge Needs Assessment Outcome: Ongoing (Interventions Implemented as Appropriate) 01/24/15 0320 01/31/15 1334 Discharge Needs Assessment Concerns to be Addressed -- no discharge needs identified Readmission Within the Last 30 Days no previous admission in last 30 days -- Equipment Needed After Discharge none -- Current Health Anticipated Changes Related to Illness none -- Self-Care Equipment Currently Used at Home none -- Living Environment Transportation Available -- car Problem: High-Risk/Critically Ill OB Patient (Adult, Obstetrics) Goal: Signs and symptoms of listed potential problems will be absent or manageable (reference (High-Risk/Critically Ill OB Patient (Adult, Obstetrics)) CPG) Outcome: Ongoing (Interventions Implemented as Appropriate) 02/13/15 1520 High-Risk/Critically Ill OB Problems Assessed (High Risk/Critically Ill OB) all Problems Present (High Risk/Critically Ill OB) none Problem: Second or Third Trimester Bleeding (Adult, Obstetrics) Goal: Signs and symptoms of listed potential problems will be absent or manageable (reference (Second or Third Trimester Bleeding (Adult, Obstetrics)) CPG) Outcome: Ongoing (Interventions Implemented as Appropriate) 02/13/15 1520 Second or Third Trimester Bleeding Problems Assessed (Second or Third Trimester Bleeding) all Problems Present (Second or Third Trimester Bleeding) none * Plan of Care - Radu García - 02/13/2015 1:51 AM EDT Problem: General Plan of Care Goal: Plan of Care Review Outcome: Ongoing (Interventions Implemented as Appropriate) 02/05/15 0558 02/09/15 1756 [id number] Coping/Psychosocial Response Interventions Plan of Care Reviewed with -- -- patient Plan of Care Review Plan of Care Outcome Status ongoing (interventions implemented as appropriate) -- -- Progress -- progress toward functional goals as expected -- OUTCOME EVALUATION NOTE: OUTCOME SUMMARY: Pt denies bleeding, vaginal discharge, ctx. Having + movement, VSS, BS WNL, taking insulin per orders. Able to sleep this shift. PLAN MOVING FORWARD: Monitor maternal and well being INDIVIDUALIZED FALL PREVENTION: Assistance: Pt independent, call light within reach, RN support Supervision: Pt independent, call light within reach, RN support Surveillance: purposeful rounding CPG OUTCOME EVALUATION: Goal: Individualization and Mutuality Outcome: Ongoing (Interventions Implemented as Appropriate) 02/07/15 1237 Individualization Individualize the Plan of Care: Monitor for bleeding; monitor glycemic control Patient Specific Preferences Update patient regarding how baby is doing; cluster care Patient Specific Goals Term delivery Patient Specific Interventions Cluster care, daily NST, monitor for bleeding, glycemic checks per MD order Mutuality/Individual Preferences What anxieties, fears or concerns do you have about your health or care? Previous loss r/t abruption; concern of What questions do you have about your health or care? None at present; encourage patient to verbalize needs What information would help us give you more personalized care? None at present Goal: Fall Prevention-Safe Patient Handling Outcome: Ongoing (Interventions Implemented as Appropriate) 01/29/15 17102/12/151956 Safety Interventions Safety Precautions/Fall Reduction lighting adjusted for task/safety;low bed;nonskid shoes/slippers when out of bed -- Musculoskeletal Interventions Activity/Level of Assistance -- bedrest with bathroom privileges Positioning -- independent Muscle Strengthening -- personal routines for BADL/IADL promoted;mobility in bed promoted Self-Care Promotion -- independence encouraged while providing assistance Lee Fall Risk History of Falling -- 0 Secondary Diagnosis -- 0 Ambulatory Aids -- 0 Intravenous Therapy/Heparin/Saline Lock -- 20 Gait/Transferring -- 0 Mental Status -- 0 Score -- 20 OTHER Lee Fall Risk -- Low Goal: Infection Control Outcome: Ongoing (Interventions Implemented as Appropriate) 02/12/151956 Safety Interventions Isolation Precautions standard precautions maintained Infection Prevention rest/sleep promoted;promote handwashing;nutrition promoted;hydration promoted;environmental surveillance Coping/Psychosocial Response Interventions Counseling calming techniques promoted;emotional support provided;personal strengths integrated;reassurance provided;relaxation techniques promoted;understanding of situation facilitated;verbalization of feelings encouraged Goal: Discharge Needs Assessment Outcome: Ongoing (Interventions Implemented as Appropriate) 01/24/15 0320 01/31/15 1334 Discharge Needs Assessment Concerns to be Addressed -- no discharge needs identified Readmission Within the Last 30 Days no previous admission in last 30 days -- Equipment Needed After Discharge none -- Current Health Anticipated Changes Related to Illness none -- Self-Care Equipment Currently Used at Home none -- Living Environment Transportation Available -- car Problem: High-Risk/Critically Ill OB Patient (Adult, Obstetrics) Goal: Signs and symptoms of listed potential problems will be absent or manageable (reference (High-Risk/Critically Ill OB Patient (Adult, Obstetrics)) CPG) Outcome: Ongoing (Interventions Implemented as Appropriate) 02/13/15 0148 High-Risk/Critically Ill OB Problems Assessed (High Risk/Critically Ill OB) all Problems Present (High Risk/Critically Ill OB) none Problem: Second or Third Trimester Bleeding (Adult, Obstetrics) Goal: Signs and symptoms of listed potential problems will be absent or manageable (reference (Second or Third Trimester Bleeding (Adult, Obstetrics)) CPG) Outcome: Ongoing (Interventions Implemented as Appropriate) * Plan of Care - Janna Oliva RN - 02/12/2015 6:45 PM EDT Problem: General Plan of Care Goal: Plan of Care Review Outcome: Ongoing (Interventions Implemented as Appropriate) 02/05/15 0558 02/09/15 1756 02/12/15 1004 Coping/Psychosocial Response Interventions Plan of Care Reviewed with -- -- patient Plan of Care Review Plan of Care Outcome Status ongoing (interventions implemented as appropriate) -- -- Progress -- progress toward functional goals as expected -- OUTCOME EVALUATION NOTE: OUTCOME SUMMARY: VSS. Scant VB today while straining for BM. Miralax provided. PLAN MOVING FORWARD: Continue to monitor, medicate as ordered INDIVIDUALIZED FALL PREVENTION: Assistance: independent Supervision: independent Surveillance: Purposeful rounding CPG OUTCOME EVALUATION: Goal: Individualization and Mutuality Outcome: Ongoing (Interventions Implemented as Appropriate) 02/07/15 1237 Individualization Individualize the Plan of Care: Monitor for bleeding; monitor glycemic control Patient Specific Preferences Update patient regarding how baby is doing; cluster care Patient Specific Goals Term delivery Patient Specific Interventions Cluster care, daily NST, monitor for bleeding, glycemic checks per MD order Mutuality/Individual Preferences What anxieties, fears or concerns do you have about your health or care? Previous loss r/t abruption; concern of What questions do you have about your health or care? None at present; encourage patient to verbalize needs What information would help us give you more personalized care? None at present Goal: Fall Prevention-Safe Patient Handling Outcome: Ongoing (Interventions Implemented as Appropriate) 01/29/15 1714 02/09/15 0950 02/10/15 1951 Safety Interventions Safety Precautions/Fall Reduction lighting adjusted for task/safety;low bed;nonskid shoes/slippers when out of bed -- -- Musculoskeletal Interventions Activity/Level of Assistance -- -- -- Positioning -- -- -- Muscle Strengthening -- -- mobility in bed promoted Self-Care Promotion -- independence encouraged while providing assistance -- Lee Fall Risk History of Falling -- -- -- Secondary Diagnosis -- -- -- Ambulatory Aids -- -- -- Intravenous Therapy/Heparin/Saline Lock -- -- -- Gait/Transferring -- -- -- Mental Status -- -- -- Score -- -- -- OTHER Lee Fall Risk -- -- -- 02/11/15 21502/12/15 1004 Safety Interventions Safety Precautions/Fall Reduction -- -- Musculoskeletal Interventions Activity/Level of Assistance -- up in room;bedrest with bathroom privileges Positioning independent -- Muscle Strengthening -- -- Self-Care Promotion -- -- Lee Fall Risk History of Falling -- 0 Secondary Diagnosis -- 0 Ambulatory Aids -- 0 Intravenous Therapy/Heparin/Saline Lock -- 0 Gait/Transferring -- 0 Mental Status -- 0 Score -- 0 OTHER Lee Fall Risk Low -- Goal: Infection Control Outcome: Ongoing (Interventions Implemented as Appropriate) 02/12/15 1004 Safety Interventions Isolation Precautions standard precautions maintained Infection Prevention rest/sleep promoted Coping/Psychosocial Response Interventions Counseling emotional support provided Goal: Discharge Needs Assessment Outcome: Ongoing (Interventions Implemented as Appropriate) 01/24/15 0320 01/31/15 1334 Discharge Needs Assessment Concerns to be Addressed -- no discharge needs identified Readmission Within the Last 30 Days no previous admission in last 30 days -- Equipment Needed After Discharge none -- Current Health Anticipated Changes Related to Illness none -- Self-Care Equipment Currently Used at Home none -- Living Environment Transportation Available -- car Problem: High-Risk/Critically Ill OB Patient (Adult, Obstetrics) Goal: Signs and symptoms of listed potential problems will be absent or manageable (reference (High-Risk/Critically Ill OB Patient (Adult, Obstetrics)) CPG) Outcome: Ongoing (Interventions Implemented as Appropriate) 02/12/15 1843 High-Risk/Critically Ill OB Problems Assessed (High Risk/Critically Ill OB) all Problems Present (High Risk/Critically Ill OB) none Problem: Second or Third Trimester Bleeding (Adult, Obstetrics) Goal: Signs and symptoms of listed potential problems will be absent or manageable (reference (Second or Third Trimester Bleeding (Adult, Obstetrics)) CPG) Outcome: Ongoing (Interventions Implemented as Appropriate) 02/12/15 1843 Second or Third Trimester Bleeding Problems Assessed (Second or Third Trimester Bleeding) all Problems Present (Second or Third Trimester Bleeding) other (see comments) (scant VB) * Plan of Care - Sherri Fleming RN - 02/12/2015 7:08 AM EDT Problem: General Plan of Care Goal: Plan of Care Review Outcome: Ongoing (Interventions Implemented as Appropriate) 02/05/15 0558 02/09/15 1756 02/11/15 2150 Coping/Psychosocial Response Interventions Plan of Care Reviewed with -- -- patient Plan of Care Review Plan of Care Outcome Status ongoing (interventions implemented as appropriate) -- -- Progress -- progress toward functional goals as expected -- OUTCOME EVALUATION NOTE: OUTCOME SUMMARY: Patient had uneventful shift. Postprandial BG WNL. No other needs overnight. PLAN MOVING FORWARD: Expectant management per MD orders. Continue blood glucose monitoring per MD orders. INDIVIDUALIZED FALL PREVENTION: Assistance: None Supervision: None Surveillance: Purposeful rounding CPG OUTCOME EVALUATION: Goal: Individualization and Mutuality Outcome: Ongoing (Interventions Implemented as Appropriate) 02/07/15 1237 Individualization Individualize the Plan of Care: Monitor for bleeding; monitor glycemic control Patient Specific Preferences Update patient regarding how baby is doing; cluster care Patient Specific Goals Term delivery Patient Specific Interventions Cluster care, daily NST, monitor for bleeding, glycemic checks per MD order Mutuality/Individual Preferences What anxieties, fears or concerns do you have about your health or care? Previous loss r/t abruption; concern of What questions do you have about your health or care? None at present; encourage patient to verbalize needs What information would help us give you more personalized care? None at present Goal: Fall Prevention-Safe Patient Handling Outcome: Ongoing (Interventions Implemented as Appropriate) 01/29/15 1714 02/09/15 0950 02/10/15 1951 Safety Interventions Safety Precautions/Fall Reduction lighting adjusted for task/safety;low bed;nonskid shoes/slippers when out of bed -- -- Musculoskeletal Interventions Activity/Level of Assistance -- -- -- Positioning -- -- -- Muscle Strengthening -- -- mobility in bed promoted Self-Care Promotion -- independence encouraged while providing assistance -- Lee Fall Risk History of Falling -- -- -- Secondary Diagnosis -- -- -- Ambulatory Aids -- -- -- Intravenous Therapy/Heparin/Saline Lock -- -- -- Gait/Transferring -- -- -- Mental Status -- -- -- Score -- -- -- OTHER Lee Fall Risk -- -- -- 02/11/152149 Safety Interventions Safety Precautions/Fall Reduction -- Musculoskeletal Interventions Activity/Level of Assistance up in room Positioning independent Muscle Strengthening -- Self-Care Promotion -- Lee Fall Risk History of Falling 0 Secondary Diagnosis 0 Ambulatory Aids 0 Intravenous Therapy/Heparin/Saline Lock 0 Gait/Transferring 0 Mental Status 0 Score 0 OTHER Lee Fall Risk Low Goal: Infection Control Outcome: Ongoing (Interventions Implemented as Appropriate) 02/11/152149 Safety Interventions Isolation Precautions standard precautions maintained Infection Prevention rest/sleep promoted Coping/Psychosocial Response Interventions Counseling emotional support provided;reassurance provided;verbalization of feelings encouraged Goal: Discharge Needs Assessment Outcome: Ongoing (Interventions Implemented as Appropriate) 01/24/15 0320 01/31/15 1334 Discharge Needs Assessment Concerns to be Addressed -- no discharge needs identified Readmission Within the Last 30 Days no previous admission in last 30 days -- Equipment Needed After Discharge none -- Current Health Anticipated Changes Related to Illness none -- Self-Care Equipment Currently Used at Home none -- Living Environment Transportation Available -- car Problem: High-Risk/Critically Ill OB Patient (Adult, Obstetrics) Goal: Signs and symptoms of listed potential problems will be absent or manageable (reference (High-Risk/Critically Ill OB Patient (Adult, Obstetrics)) CPG) Outcome: Ongoing (Interventions Implemented as Appropriate) 02/11/15 1624 High-Risk/Critically Ill OB Problems Assessed (High Risk/Critically Ill OB) all Problems Present (High Risk/Critically Ill OB) none Problem: Second or Third Trimester Bleeding (Adult, Obstetrics) Goal: Signs and symptoms of listed potential problems will be absent or manageable (reference (Second or Third Trimester Bleeding (Adult, Obstetrics)) CPG) Outcome: Ongoing (Interventions Implemented as Appropriate) 02/11/15 1624 Second or Third Trimester Bleeding Problems Assessed (Second or Third Trimester Bleeding) all Problems Present (Second or Third Trimester Bleeding) none * Plan of Care - Breonna Dale RN - 02/11/2015 4:26 PM EDT Problem: General Plan of Care Goal: Plan of Care Review Outcome: Ongoing (Interventions Implemented as Appropriate) 02/05/15 0558 02/09/15 1756 02/10/15 1951 Coping/Psychosocial Response Interventions Plan of Care Reviewed with -- -- patient Plan of Care Review Plan of Care Outcome Status ongoing (interventions implemented as appropriate) -- -- Progress -- progress toward functional goals as expected -- Goal: Individualization and Mutuality Outcome: Ongoing (Interventions Implemented as Appropriate) 02/07/15 1237 Individualization Individualize the Plan of Care: Monitor for bleeding; monitor glycemic control Patient Specific Preferences Update patient regarding how baby is doing; cluster care Patient Specific Goals Term delivery Patient Specific Interventions Cluster care, daily NST, monitor for bleeding, glycemic checks per MD order Mutuality/Individual Preferences What anxieties, fears or concerns do you have about your health or care? Previous loss r/t abruption; concern of What questions do you have about your health or care? None at present; encourage patient to verbalize needs What information would help us give you more personalized care? None at present Goal: Fall Prevention-Safe Patient Handling Outcome: Ongoing (Interventions Implemented as Appropriate) 01/29/15 1714 02/09/15 0950 02/10/151950 Safety Interventions Safety Precautions/Fall Reduction lighting adjusted for task/safety;low bed;nonskid shoes/slippers when out of bed -- -- Musculoskeletal Interventions Activity/Level of Assistance -- -- -- Positioning -- -- independent Muscle Strengthening -- -- mobility in bed promoted Self-Care Promotion -- independence encouraged while providing assistance -- Lee Fall Risk History of Falling -- -- -- Secondary Diagnosis -- -- -- Ambulatory Aids -- -- -- Intravenous Therapy/Heparin/Saline Lock -- -- -- Gait/Transferring -- -- -- Mental Status -- -- -- Score -- -- -- OTHER Lee Fall Risk -- -- -- 02/11/15 1200 02/11/15 1316 Safety Interventions Safety Precautions/Fall Reduction -- -- Musculoskeletal Interventions Activity/Level of Assistance up in room -- Positioning -- -- Muscle Strengthening -- -- Self-Care Promotion -- -- Lee Fall Risk History of Falling -- 0 Secondary Diagnosis -- 0 Ambulatory Aids -- 0 Intravenous Therapy/Heparin/Saline Lock -- 20 Gait/Transferring -- 0 Mental Status -- 0 Score -- 20 OTHER Lee Fall Risk -- Low Goal: Infection Control Outcome: Ongoing (Interventions Implemented as Appropriate) 02/09/15 2100 02/10/151950 Safety Interventions Isolation Precautions standard precautions maintained -- Infection Prevention rest/sleep promoted;promote handwashing;nutrition promoted;hydration promoted;blood glucose management -- Coping/Psychosocial Response Interventions Counseling -- verbalization of feelings encouraged Goal: Discharge Needs Assessment Outcome: Ongoing (Interventions Implemented as Appropriate) 01/24/15 0320 01/31/15 1334 Discharge Needs Assessment Concerns to be Addressed -- no discharge needs identified Readmission Within the Last 30 Days no previous admission in last 30 days -- Equipment Needed After Discharge none -- Current Health Anticipated Changes Related to Illness none -- Self-Care Equipment Currently Used at Home none -- Living Environment Transportation Available -- car Problem: High-Risk/Critically Ill OB Patient (Adult, Obstetrics) Goal: Signs and symptoms of listed potential problems will be absent or manageable (reference (High-Risk/Critically Ill OB Patient (Adult, Obstetrics)) CPG) Outcome: Ongoing (Interventions Implemented as Appropriate) 02/11/15 1624 High-Risk/Critically Ill OB Problems Assessed (High Risk/Critically Ill OB) all Problems Present (High Risk/Critically Ill OB) none Problem: Second or Third Trimester Bleeding (Adult, Obstetrics) Goal: Signs and symptoms of listed potential problems will be absent or manageable (reference (Second or Third Trimester Bleeding (Adult, Obstetrics)) CPG) Outcome: Ongoing (Interventions Implemented as Appropriate) 02/11/15 1624 Second or Third Trimester Bleeding Problems Assessed (Second or Third Trimester Bleeding) all Problems Present (Second or Third Trimester Bleeding) none Comments: OUTCOME EVALUATION NOTE: OUTCOME SUMMARY: AP patient with h/o bleeding in this admission; bleed free for this shift. NST as documented; bloodglucose monitored as ordered. PLAN MOVING FORWARD: Continue to monitor for bleeding, continue to monitor blood glucose & offer emotional support. INDIVIDUALIZED FALL PREVENTION: Assistance: As needed Supervision: As needed Surveillance: Purposeful rounding CPG OUTCOME EVALUATION: * Plan of Care - Cristin Edgar RN - 02/11/2015 3:50 AM EDT Problem: General Plan of Care Goal: Plan of Care Review Outcome: Ongoing (Interventions Implemented as Appropriate) 02/05/15 0558 02/09/15 1756 02/10/15 1951 Coping/Psychosocial Response Interventions Plan of Care Reviewed with -- -- patient Plan of Care Review Plan of Care Outcome Status ongoing (interventions implemented as appropriate) -- -- Progress -- progress toward functional goals as expected -- OUTCOME EVALUATION NOTE: OUTCOME SUMMARY: Discussed plan of care with pt. Denies questions. Denies vaginal bleeding. PLAN MOVING FORWARD: Continue to monitor for vaginal bleeding. INDIVIDUALIZED FALL PREVENTION: Assistance: Not needed at this time. Call fry at bedside. Supervision: Not needed Surveillance: Purposeful rounding CPG OUTCOME EVALUATION: Goal: Individualization and Mutuality Outcome: Ongoing (Interventions Implemented as Appropriate) 02/07/15 1237 Individualization Individualize the Plan of Care: Monitor for bleeding; monitor glycemic control Patient Specific Preferences Update patient regarding how baby is doing; cluster care Patient Specific Goals Term delivery Patient Specific Interventions Cluster care, daily NST, monitor for bleeding, glycemic checks per MD order Mutuality/Individual Preferences What anxieties, fears or concerns do you have about your health or care? Previous loss r/t abruption; concern of What questions do you have about your health or care? None at present; encourage patient to verbalize needs What information would help us give you more personalized care? None at present Goal: Fall Prevention-Safe Patient Handling Outcome: Ongoing (Interventions Implemented as Appropriate) 01/29/15 1714 02/09/15 0950 02/10/15 195 Safety Interventions Safety Precautions/Fall Reduction lighting adjusted for task/safety;low bed;nonskid shoes/slippers when out of bed -- -- Musculoskeletal Interventions Activity/Level of Assistance -- -- bedrest with bathroom privileges Positioning -- -- independent Muscle Strengthening -- -- mobility in bed promoted Self-Care Promotion -- independence encouraged while providing assistance -- Lee Fall Risk History of Falling -- -- 0 Secondary Diagnosis -- -- 0 Ambulatory Aids -- -- 0 Intravenous Therapy/Heparin/Saline Lock -- -- 0 Gait/Transferring -- -- 0 Mental Status -- -- 0 Score -- -- 0 OTHER Lee Fall Risk -- -- Low Goal: Infection Control Outcome: Ongoing (Interventions Implemented as Appropriate) 02/09/15 2100 02/10/151950 Safety Interventions Isolation Precautions standard precautions maintained -- Infection Prevention rest/sleep promoted;promote handwashing;nutrition promoted;hydration promoted;blood glucose management -- Coping/Psychosocial Response Interventions Counseling -- verbalization of feelings encouraged Goal: Discharge Needs Assessment Outcome: Ongoing (Interventions Implemented as Appropriate) 01/24/15 0320 01/31/15 1334 Discharge Needs Assessment Concerns to be Addressed -- no discharge needs identified Readmission Within the Last 30 Days no previous admission in last 30 days -- Equipment Needed After Discharge none -- Current Health Anticipated Changes Related to Illness none -- Self-Care Equipment Currently Used at Home none -- Living Environment Transportation Available -- car Problem: High-Risk/Critically Ill OB Patient (Adult, Obstetrics) Goal: Signs and symptoms of listed potential problems will be absent or manageable (reference (High-Risk/Critically Ill OB Patient (Adult, Obstetrics)) CPG) Outcome: Ongoing (Interventions Implemented as Appropriate) 02/08/15 1510 02/09/15 1756 High-Risk/Critically Ill OB Problems Assessed (High Risk/Critically Ill OB) -- all Problems Present (High Risk/Critically Ill OB) none -- Problem: Second or Third Trimester Bleeding (Adult, Obstetrics) Goal: Signs and symptoms of listed potential problems will be absent or manageable (reference (Second or Third Trimester Bleeding (Adult, Obstetrics)) CPG) Outcome: Ongoing (Interventions Implemented as Appropriate) 02/09/15 1756 Second or Third Trimester Bleeding Problems Assessed (Second or Third Trimester Bleeding) all Problems Present (Second or Third Trimester Bleeding) none * Plan of Care - Christianne San RN - 02/10/2015 7:19 PM EDT Problem: General Plan of Care Goal: Plan of Care Review Outcome: Ongoing (Interventions Implemented as Appropriate) 02/05/15 0558 02/09/15 1756 02/10/15 0842 Coping/Psychosocial Response Interventions Plan of Care Reviewed with -- -- patient Plan of Care Review Plan of Care Outcome Status ongoing (interventions implemented as appropriate) -- -- Progress -- progress toward functional goals as expected -- OUTCOME EVALUATION NOTE: OUTCOME SUMMARY: Discussed POC with Pt, answered questions, verbalized understanding. VSS, Pt resting comfortably inbed. Pt had some spotty discharge in the morning, MD's aware. PLAN MOVING FORWARD: Continue to monitor. INDIVIDUALIZED FALL PREVENTION: Assistance: Not required at this time, Pt independent with care, call fry within reach. Supervision: Not required at this time. Surveillance: Rounding per protocol. CPG OUTCOME EVALUATION: Goal: Individualization and Mutuality Outcome: Ongoing (Interventions Implemented as Appropriate) 02/07/15 1237 Individualization Individualize the Plan of Care: Monitor for bleeding; monitor glycemic control Patient Specific Preferences Update patient regarding how baby is doing; cluster care Patient Specific Goals Term delivery Patient Specific Interventions Cluster care, daily NST, monitor for bleeding, glycemic checks per MD order Mutuality/Individual Preferences What anxieties, fears or concerns do you have about your health or care? Previous loss r/t abruption; concern of What questions do you have about your health or care? None at present; encourage patient to verbalize needs What information would help us give you more personalized care? None at present Goal: Fall Prevention-Safe Patient Handling Outcome: Ongoing (Interventions Implemented as Appropriate) 01/29/15 1714 02/09/15 0950 02/10/15 0842 Safety Interventions Safety Precautions/Fall Reduction lighting adjusted for task/safety;low bed;nonskid shoes/slippers when out of bed -- -- Musculoskeletal Interventions Activity/Level of Assistance -- -- bedrest with bathroom privileges Positioning -- -- independent Muscle Strengthening -- -- mobility in bed promoted Self-Care Promotion -- independence encouraged while providing assistance -- Lee Fall Risk History of Falling -- -- 0 Secondary Diagnosis -- -- 15 Ambulatory Aids -- -- 0 Intravenous Therapy/Heparin/Saline Lock -- -- 20 Gait/Transferring -- -- 0 Mental Status -- -- 0 Score -- -- 35 OTHER Lee Fall Risk -- Low -- Goal: Infection Control Outcome: Ongoing (Interventions Implemented as Appropriate) 02/09/15 2100 02/10/15 0842 Safety Interventions Isolation Precautions standard precautions maintained -- Infection Prevention rest/sleep promoted;promote handwashing;nutrition promoted;hydration promoted;blood glucose management -- Coping/Psychosocial Response Interventions Counseling -- verbalization of feelings encouraged Goal: Discharge Needs Assessment Outcome: Ongoing (Interventions Implemented as Appropriate) 01/24/15 0320 01/31/15 1334 Discharge Needs Assessment Concerns to be Addressed -- no discharge needs identified Readmission Within the Last 30 Days no previous admission in last 30 days -- Equipment Needed After Discharge none -- Current Health Anticipated Changes Related to Illness none -- Self-Care Equipment Currently Used at Home none -- Living Environment Transportation Available -- car Problem: High-Risk/Critically Ill OB Patient (Adult, Obstetrics) Goal: Signs and symptoms of listed potential problems will be absent or manageable (reference (High-Risk/Critically Ill OB Patient (Adult, Obstetrics)) CPG) Outcome: Ongoing (Interventions Implemented as Appropriate) 02/08/15 1510 02/09/15 1756 High-Risk/Critically Ill OB Problems Assessed (High Risk/Critically Ill OB) -- all Problems Present (High Risk/Critically Ill OB) none -- Problem: Second or Third Trimester Bleeding (Adult, Obstetrics) Goal: Signs and symptoms of listed potential problems will be absent or manageable (reference (Second or Third Trimester Bleeding (Adult, Obstetrics)) CPG) Outcome: Ongoing (Interventions Implemented as Appropriate) 02/09/15 1756 Second or Third Trimester Bleeding Problems Assessed (Second or Third Trimester Bleeding) all Problems Present (Second or Third Trimester Bleeding) none * Plan of Care - Nadya Alexander RN - 02/10/2015 4:44 AM EDT Problem: General Plan of Care Goal: Plan of Care Review Outcome: Ongoing (Interventions Implemented as Appropriate) 02/05/15 0558 02/09/15 1756 02/09/15 2100 Coping/Psychosocial Response Interventions Plan of Care Reviewed with -- -- patient Plan of Care Review Plan of Care Outcome Status ongoing (interventions implemented as appropriate) -- -- Progress -- progress toward functional goals as expected -- OUTCOME EVALUATION NOTE: OUTCOME SUMMARY: VSS, afebrile. Denied any bleeding/spotting, contractions or LOF. + movement. Pt reports doing well despite prolonged admission. Coping well with having a roommate and staying busy with visitors. Pt knows to call with any changes in status. PLAN MOVING FORWARD: Continue to monitor bleeding and blood sugars. Provide emotional support. INDIVIDUALIZED FALL PREVENTION: Assistance: Independent. Supervision: Pt encouraged to call with any questions, changes or concerns. Surveillance: Purposeful rounding. CPG OUTCOME EVALUATION: Goal: Individualization and Mutuality Outcome: Ongoing (Interventions Implemented as Appropriate) 02/07/15 1237 Individualization Individualize the Plan of Care: Monitor for bleeding; monitor glycemic control Patient Specific Preferences Update patient regarding how baby is doing; cluster care Patient Specific Goals Term delivery Patient Specific Interventions Cluster care, daily NST, monitor for bleeding, glycemic checks per MD order Mutuality/Individual Preferences What anxieties, fears or concerns do you have about your health or care? Previous loss r/t abruption; concern of What questions do you have about your health or care? None at present; encourage patient to verbalize needs What information would help us give you more personalized care? None at present Goal: Fall Prevention-Safe Patient Handling Outcome: Ongoing (Interventions Implemented as Appropriate) 01/29/15 1714 02/09/15 0950 02/09/15 2100 Safety Interventions Safety Precautions/Fall Reduction lighting adjusted for task/safety;low bed;nonskid shoes/slippers when out of bed -- -- Musculoskeletal Interventions Activity/Level of Assistance -- -- bedrest with bathroom privileges;independently;up in room Positioning -- independent -- Muscle Strengthening -- mobility in bed promoted -- Self-Care Promotion -- independence encouraged while providing assistance -- Lee Fall Risk History of Falling -- -- 0 Secondary Diagnosis -- -- 15 Ambulatory Aids -- -- 0 Intravenous Therapy/Heparin/Saline Lock -- -- 20 Gait/Transferring -- -- 0 Mental Status -- -- 0 Score -- -- 35 OTHER Lee Fall Risk -- Low -- Goal: Infection Control Outcome: Ongoing (Interventions Implemented as Appropriate) 02/09/15 2100 Coping/Psychosocial Response Interventions Counseling emotional support provided;reassurance provided;relaxation techniques promoted Problem: High-Risk/Critically Ill OB Patient (Adult, Obstetrics) Goal: Signs and symptoms of listed potential problems will be absent or manageable (reference (High-Risk/Critically Ill OB Patient (Adult, Obstetrics)) CPG) Outcome: Ongoing (Interventions Implemented as Appropriate) 02/08/15 1510 02/09/15 1756 High-Risk/Critically Ill OB Problems Assessed (High Risk/Critically Ill OB) -- all Problems Present (High Risk/Critically Ill OB) none -- Problem: Second or Third Trimester Bleeding (Adult, Obstetrics) Goal: Signs and symptoms of listed potential problems will be absent or manageable (reference (Second or Third Trimester Bleeding (Adult, Obstetrics)) CPG) Outcome: Ongoing (Interventions Implemented as Appropriate) 02/09/15 1756 Second or Third Trimester Bleeding Problems Assessed (Second or Third Trimester Bleeding) all Problems Present (Second or Third Trimester Bleeding) none * Plan of Care - Lorri Neville - 02/09/2015 6:05 PM EDT Problem: General Plan of Care Goal: Plan of Care Review Outcome: Ongoing (Interventions Implemented as Appropriate) 02/05/15 0558 02/09/15 0950 02/09/15 1756 Coping/Psychosocial Response Interventions Plan of Care Reviewed with -- patient -- Plan of Care Review Plan of Care Outcome Status ongoing (interventions implemented as appropriate) -- -- Progress -- -- progress toward functional goals as expected OUTCOME EVALUATION NOTE: OUTCOME SUMMARY: Pt denies vaginal bleeding, leaking or fluids, or ctx this shift. Denies PARR, vision changes, or epigastric pain. PLAN MOVING FORWARD: Continue to monitor for vaginal bleeding. VS per protocol INDIVIDUALIZED FALL PREVENTION: Assistance: None Supervision: Independent with ADL's Surveillance: Purposeful rounding. CPG OUTCOME EVALUATION: Goal: Individualization and Mutuality Outcome: Ongoing (Interventions Implemented as Appropriate) 02/07/15 1237 Individualization Individualize the Plan of Care: Monitor for bleeding; monitor glycemic control Patient Specific Preferences Update patient regarding how baby is doing; cluster care Patient Specific Goals Term delivery Patient Specific Interventions Cluster care, daily NST, monitor for bleeding, glycemic checks per MD order Mutuality/Individual Preferences What anxieties, fears or concerns do you have about your health or care? Previous loss r/t abruption; concern of What questions do you have about your health or care? None at present; encourage patient to verbalize needs What information would help us give you more personalized care? None at present Goal: Fall Prevention-Safe Patient Handling Outcome: Ongoing (Interventions Implemented as Appropriate) 01/29/15 1714 02/09/15 0950 Safety Interventions Safety Precautions/Fall Reduction lighting adjusted for task/safety;low bed;nonskid shoes/slippers when out of bed -- Musculoskeletal Interventions Activity/Level of Assistance -- up ad zeus;bedrest with bathroom privileges Positioning -- independent Muscle Strengthening -- mobility in bed promoted Self-Care Promotion -- independence encouraged while providing assistance Lee Fall Risk History of Falling -- 0 Secondary Diagnosis -- 0 Ambulatory Aids -- 0 Intravenous Therapy/Heparin/Saline Lock -- 20 Gait/Transferring -- 0 Mental Status -- 0 Score -- 20 OTHER Lee Fall Risk -- Low Goal: Infection Control Outcome: Ongoing (Interventions Implemented as Appropriate) 02/09/15 0950 Safety Interventions Isolation Precautions standard precautions maintained Infection Prevention rest/sleep promoted;promote handwashing;nutrition promoted;hydration promoted Coping/Psychosocial Response Interventions Counseling calming techniques promoted;emotional support provided;relaxation techniques promoted;understanding of situation facilitated;verbalization of feelings encouraged Goal: Discharge Needs Assessment Outcome: Ongoing (Interventions Implemented as Appropriate) 01/24/15 0320 01/31/15 1334 Discharge Needs Assessment Concerns to be Addressed -- no discharge needs identified Readmission Within the Last 30 Days no previous admission in last 30 days -- Equipment Needed After Discharge none -- Current Health Anticipated Changes Related to Illness none -- Self-Care Equipment Currently Used at Home none -- Living Environment Transportation Available -- car Problem: High-Risk/Critically Ill OB Patient (Adult, Obstetrics) Goal: Signs and symptoms of listed potential problems will be absent or manageable (reference (High-Risk/Critically Ill OB Patient (Adult, Obstetrics)) CPG) Outcome: Ongoing (Interventions Implemented as Appropriate) 02/09/15 1756 High-Risk/Critically Ill OB Problems Assessed (High Risk/Critically Ill OB) all Problem: Second or Third Trimester Bleeding (Adult, Obstetrics) Goal: Signs and symptoms of listed potential problems will be absent or manageable (reference (Second or Third Trimester Bleeding (Adult, Obstetrics)) CPG) Outcome: Ongoing (Interventions Implemented as Appropriate) 02/09/15 1756 Second or Third Trimester Bleeding Problems Assessed (Second or Third Trimester Bleeding) all Problems Present (Second or Third Trimester Bleeding) none * Plan of Care - Ilana Martinez I RN - 02/09/2015 3:44 AM EDT Problem: General Plan of Care Goal: Plan of Care Review Outcome: Ongoing (Interventions Implemented as Appropriate) 02/05/15 0558 02/08/15 0834 Coping/Psychosocial Response Interventions Plan of Care Reviewed with -- patient Plan of Care Review Plan of Care Outcome Status ongoing (interventions implemented as appropriate) -- Progress improving -- OUTCOME EVALUATION NOTE: OUTCOME SUMMARY: Pt denies any further bleeding this shift, denies leaking of fluid or contractions when asked, reports active fetus, [id number] last evening, appears to be resting well tonight, vss. PLAN MOVING FORWARD: Monitor for bleeding, vitals signs per protocol, daily NST, maintain glycemic control. INDIVIDUALIZED FALL PREVENTION: Assistance: independent Supervision: independent with care, Call light in reach Surveillance: Purposeful rounding CPG OUTCOME EVALUATION: Goal: Individualization and Mutuality Outcome: Ongoing (Interventions Implemented as Appropriate) 02/07/15 1237 Individualization Individualize the Plan of Care: Monitor for bleeding; monitor glycemic control Patient Specific Preferences Update patient regarding how baby is doing; cluster care Patient Specific Goals Term delivery Patient Specific Interventions Cluster care, daily NST, monitor for bleeding, glycemic checks per MD order Mutuality/Individual Preferences What anxieties, fears or concerns do you have about your health or care? Previous loss r/t abruption; concern of What questions do you have about your health or care? None at present; encourage patient to verbalize needs What information would help us give you more personalized care? None at present Goal: Fall Prevention-Safe Patient Handling Outcome: Ongoing (Interventions Implemented as Appropriate) 01/29/15 1714 02/08/15 [id number] Safety Interventions Safety Precautions/Fall Reduction lighting adjusted for task/safety;low bed;nonskid shoes/slippers when out of bed -- -- Musculoskeletal Interventions Activity/Level of Assistance -- -- up ad zeus Positioning -- -- independent Muscle Strengthening -- -- personal routines for BADL/IADL promoted Self-Care Promotion -- personal/BADL objects within reach;personal routines for BADL/IADL promoted -- Lee Fall Risk History of Falling -- -- 0 Secondary Diagnosis -- -- 0 Ambulatory Aids -- -- 0 Intravenous Therapy/Heparin/Saline Lock -- -- 20 Gait/Transferring -- -- 0 Mental Status -- -- 0 Score -- -- 20 OTHER Lee Fall Risk -- -- Low Goal: Infection Control Outcome: Ongoing (Interventions Implemented as Appropriate) 02/08/1583302/08/152199 Safety Interventions Isolation Precautions -- standard precautions maintained Infection Prevention -- rest/sleep promoted;promote handwashing;hydration promoted Coping/Psychosocial Response Interventions Counseling calming techniques promoted;emotional support provided;reassurance provided;problem solving facilitated;relaxation techniques promoted;understanding of situation facilitated;verbalization of feelings encouraged -- Goal: Discharge Needs Assessment Outcome: Ongoing (Interventions Implemented as Appropriate) 01/24/15 0320 01/31/15 1334 Discharge Needs Assessment Concerns to be Addressed -- no discharge needs identified Readmission Within the Last 30 Days no previous admission in last 30 days -- Equipment Needed After Discharge none -- Current Health Anticipated Changes Related to Illness none -- Self-Care Equipment Currently Used at Home none -- Living Environment Transportation Available -- car Problem: High-Risk/Critically Ill OB Patient (Adult, Obstetrics) Goal: Signs and symptoms of listed potential problems will be absent or manageable (reference (High-Risk/Critically Ill OB Patient (Adult, Obstetrics)) CPG) Outcome: Ongoing (Interventions Implemented as Appropriate) 02/08/15 1510 High-Risk/Critically Ill OB Problems Assessed (High Risk/Critically Ill OB) all Problems Present (High Risk/Critically Ill OB) none Problem: Second or Third Trimester Bleeding (Adult, Obstetrics) Goal: Signs and symptoms of listed potential problems will be absent or manageable (reference (Second or Third Trimester Bleeding (Adult, Obstetrics)) CPG) Outcome: Ongoing (Interventions Implemented as Appropriate) 02/08/15 1510 Second or Third Trimester Bleeding Problems Assessed (Second or Third Trimester Bleeding) all Problems Present (Second or Third Trimester Bleeding) none * Plan of Care - Viv Padron - 02/08/2015 3:17 PM EDT Problem: General Plan of Care Goal: Plan of Care Review Outcome: Ongoing (Interventions Implemented as Appropriate) 02/05/15 0558 02/08/15 0834 Coping/Psychosocial Response Interventions Plan of Care Reviewed with -- patient Plan of Care Review Plan of Care Outcome Status ongoing (interventions implemented as appropriate) -- Progress improving -- OUTCOME EVALUATION NOTE: OUTCOME SUMMARY: Martinez is a 29 year old at 33w3d admitted for bleeding on 01/20. No bleeding on this shift, last bleeding reported on 02/06. Novolog given with meals. No additional novolog has been required one hour following meals, as blood glucose has remained <140. Patient rings for blood sugar checks andeats a consistent, healthy diet. No pain, cramping, or contractions reported on this shift. PLAN MOVING FORWARD: Monitor for bleeding and continue treating gestational diabetes according to orders. INDIVIDUALIZED FALL PREVENTION: Assistance: Independent. Supervision: Call button within reach. Patient calls out for blood sugar checks. Surveillance: Purposeful rounding and safety checks completed. CPG OUTCOME EVALUATION: Goal: Individualization and Mutuality Outcome: Ongoing (Interventions Implemented as Appropriate) 02/07/15 1237 Individualization Individualize the Plan of Care: Monitor for bleeding; monitor glycemic control Patient Specific Preferences Update patient regarding how baby is doing; cluster care Patient Specific Goals Term delivery Patient Specific Interventions Cluster care, daily NST, monitor for bleeding, glycemic checks per MD order Mutuality/Individual Preferences What anxieties, fears or concerns do you have about your health or care? Previous loss r/t abruption; concern of What questions do you have about your health or care? None at present; encourage patient to verbalize needs What information would help us give you more personalized care? None at present Goal: Fall Prevention-Safe Patient Handling Outcome: Ongoing (Interventions Implemented as Appropriate) 01/29/15 1714 02/07/15 0744 02/08/15 0834 Safety Interventions Safety Precautions/Fall Reduction lighting adjusted for task/safety;low bed;nonskid shoes/slippers when out of bed -- -- Musculoskeletal Interventions Activity/Level of Assistance -- -- up ad zeus;independently Positioning -- -- independent Muscle Strengthening -- personal routines for BADL/IADL promoted -- Self-Care Promotion -- -- personal/BADL objects within reach;personal routines for BADL/IADL promoted Lee Fall Risk History of Falling -- -- 0 Secondary Diagnosis -- -- 15 Ambulatory Aids -- -- 0 Intravenous Therapy/Heparin/Saline Lock -- -- 0 Gait/Transferring -- -- 0 Mental Status -- -- 0 Score -- -- 15 OTHER Lee Fall Risk -- -- Low Goal: Infection Control Outcome: Ongoing (Interventions Implemented as Appropriate) 02/08/15 0834 Safety Interventions Isolation Precautions standard precautions maintained Infection Prevention rest/sleep promoted;nutrition promoted;promote handwashing;hydration promoted;environmental surveillance Coping/Psychosocial Response Interventions Counseling calming techniques promoted;emotional support provided;reassurance provided;problem solving facilitated;relaxation techniques promoted;understanding of situation facilitated;verbalization of feelings encouraged Goal: Discharge Needs Assessment 01/24/15 0320 01/31/15 1334 Discharge Needs Assessment Concerns to be Addressed -- no discharge needs identified Readmission Within the Last 30 Days no previous admission in last 30 days -- Equipment Needed After Discharge none -- Current Health Anticipated Changes Related to Illness none -- Self-Care Equipment Currently Used at Home none -- Living Environment Transportation Available -- car Problem: High-Risk/Critically Ill OB Patient (Adult, Obstetrics) Goal: Signs and symptoms of listed potential problems will be absent or manageable (reference (High-Risk/Critically Ill OB Patient (Adult, Obstetrics)) CPG) Outcome: Ongoing (Interventions Implemented as Appropriate) 02/08/15 1510 High-Risk/Critically Ill OB Problems Assessed (High Risk/Critically Ill OB) all Problems Present (High Risk/Critically Ill OB) none Problem: Second or Third Trimester Bleeding (Adult, Obstetrics) Goal: Signs and symptoms of listed potential problems will be absent or manageable (reference (Second or Third Trimester Bleeding (Adult, Obstetrics)) CPG) Outcome: Ongoing (Interventions Implemented as Appropriate) 02/08/15 1510 Second or Third Trimester Bleeding Problems Assessed (Second or Third Trimester Bleeding) all Problems Present (Second or Third Trimester Bleeding) none * Plan of Care - Ilana Martinez RN - 02/08/2015 3:59 AM EDT Problem: General Plan of Care Goal: Plan of Care Review Outcome: Ongoing (Interventions Implemented as Appropriate) 02/05/15 0558 02/07/152053 Coping/Psychosocial Response Interventions Plan of Care Reviewed with -- patient Plan of Care Review Plan of Care Outcome Status ongoing (interventions implemented as appropriate) -- Progress improving -- OUTCOME EVALUATION NOTE: OUTCOME SUMMARY: Pt doing well tonight, denies any contractions, leaking of fluid or vaginal bleeding, pt reports active fetus, presents to be resting well, vss. PLAN MOVING FORWARD: Monitor vaginal bleeding and blood glucose INDIVIDUALIZED FALL PREVENTION: Assistance: independent Supervision: Call light in reach Surveillance: Purposeful rounding CPG OUTCOME EVALUATION: Goal: Individualization and Mutuality Outcome: Ongoing (Interventions Implemented as Appropriate) 02/07/15 1237 Individualization Individualize the Plan of Care: Monitor for bleeding; monitor glycemic control Patient Specific Preferences Update patient regarding how baby is doing; cluster care Patient Specific Goals Term delivery Patient Specific Interventions Cluster care, daily NST, monitor for bleeding, glycemic checks per MD order Mutuality/Individual Preferences What anxieties, fears or concerns do you have about your health or care? Previous loss r/t abruption; concern of What questions do you have about your health or care? None at present; encourage patient to verbalize needs What information would help us give you more personalized care? None at present Goal: Fall Prevention-Safe Patient Handling Outcome: Ongoing (Interventions Implemented as Appropriate) 01/29/15 1714 02/07/15 0744 02/07/152053 Safety Interventions Safety Precautions/Fall Reduction lighting adjusted for task/safety;low bed;nonskid shoes/slippers when out of bed -- -- Musculoskeletal Interventions Activity/Level of Assistance -- -- bedrest with bathroom privileges;independently Positioning -- -- independent Muscle Strengthening -- personal routines for BADL/IADL promoted -- Self-Care Promotion -- independence encouraged while providing assistance -- Lee Fall Risk History of Falling -- -- 0 Secondary Diagnosis -- -- 15 Ambulatory Aids -- -- 0 Intravenous Therapy/Heparin/Saline Lock -- -- 20 Gait/Transferring -- -- 0 Mental Status -- -- 0 Score -- -- 35 OTHER Lee Fall Risk -- -- Med Goal: Infection Control Outcome: Ongoing (Interventions Implemented as Appropriate) 02/07/152053 Safety Interventions Isolation Precautions standard precautions maintained Infection Prevention promote handwashing;blood glucose management Coping/Psychosocial Response Interventions Counseling verbalization of feelings encouraged Goal: Discharge Needs Assessment Outcome: Ongoing (Interventions Implemented as Appropriate) 01/24/15 0320 01/31/15 1334 Discharge Needs Assessment Concerns to be Addressed -- no discharge needs identified Readmission Within the Last 30 Days no previous admission in last 30 days -- Equipment Needed After Discharge none -- Current Health Anticipated Changes Related to Illness none -- Self-Care Equipment Currently Used at Home none -- Living Environment Transportation Available -- car Problem: High-Risk/Critically Ill OB Patient (Adult, Obstetrics) Goal: Signs and symptoms of listed potential problems will be absent or manageable (reference (High-Risk/Critically Ill OB Patient (Adult, Obstetrics)) CPG) Outcome: Ongoing (Interventions Implemented as Appropriate) 02/05/15 1512 High-Risk/Critically Ill OB Problems Assessed (High Risk/Critically Ill OB) all Problems Present (High Risk/Critically Ill OB) none * Plan of Care - Tracey Abreu RN - 02/07/2015 12:44 PM EDT Problem: General Plan of Care Goal: Plan of Care Review Outcome: Ongoing (Interventions Implemented as Appropriate) 02/05/15 0558 02/07/15 0744 Coping/Psychosocial Response Interventions Plan of Care Reviewed with -- patient Plan of Care Review Plan of Care Outcome Status ongoing (interventions implemented as appropriate) -- Progress improving -- OUTCOME EVALUATION NOTE: OUTCOME SUMMARY: Patient continues to be hospitalized in antepartum state for vaginal bleeding. Is presently on a 7-day bleed-free countdown. No evidence of bleeding today, and reports frequent movement. Deniescontractions or leakage of fluid. Does have hx of abruption, so is prepared to remain hospitalized for duration of . 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 Family to visit when weather permits. Daily NST per MD order. Is on FSBS checks per MD/MAR order as pt has GDM A2. PLAN MOVING FORWARD: Daily NST, VS and FSBS per protocol; monitor for vaginal bleeding, leakage of fluid, or contractions. INDIVIDUALIZED FALL PREVENTION: Assistance: Independent; encouraged to notify nursing staff with any needs. Supervision: Family to visit when time/weather permits. Surveillance: Bedside nursing knowledge exchange and purposeful rounding per unit routine. CPG OUTCOME EVALUATION: Goal: Individualization and Mutuality Outcome: Ongoing (Interventions Implemented as Appropriate) 02/07/15 1237 Individualization Individualize the Plan of Care: Monitor for bleeding; monitor glycemic control Patient Specific Preferences Update patient regarding how baby is doing; cluster care Patient Specific Goals Term delivery Patient Specific Interventions Cluster care, daily NST, monitor for bleeding, glycemic checks per MD order Mutuality/Individual Preferences What anxieties, fears or concerns do you have about your health or care? Previous loss r/t abruption; concern of What questions do you have about your health or care? None at present; encourage patient to verbalize needs What information would help us give you more personalized care? None at present Goal: Fall Prevention-Safe Patient Handling Outcome: Ongoing (Interventions Implemented as Appropriate) 01/29/15 1714 02/07/15 0729 Safety Interventions Safety Precautions/Fall Reduction lighting adjusted for task/safety;low bed;nonskid shoes/slippers when out of bed -- Musculoskeletal Interventions Activity/Level of Assistance -- bedrest with bathroom privileges Positioning -- independent Muscle Strengthening -- personal routines for BADL/IADL promoted Self-Care Promotion -- independence encouraged while providing assistance Jesus Fall Risk History of Falling -- 0 Secondary Diagnosis -- 15 Ambulatory Aids -- 0 Intravenous Therapy/Heparin/Saline Lock -- 20 Gait/Transferring -- 0 Mental Status -- 0 Score -- 35 OTHER Lee Fall Risk -- Med Goal: Infection Control Outcome: Ongoing (Interventions Implemented as Appropriate) 02/07/15 0744 Safety Interventions Isolation Precautions standard precautions maintained Infection Prevention blood glucose management;environmental surveillance;hydration promoted;promotehandwashing;nutrition promoted;rest/sleep promoted;bronchial hygiene promoted Coping/Psychosocial Response Interventions Counseling emotional support provided;personal strengths integrated;problem solving facilitated;reassurance provided;understanding of situation facilitated;verbalization of feelings encouraged Goal: Discharge Needs Assessment Outcome: Ongoing (Interventions Implemented as Appropriate) 01/24/15 0320 01/31/15 1334 Discharge Needs Assessment Concerns to be Addressed -- no discharge needs identified Readmission Within the Last 30 Days no previous admission in last 30 days -- Equipment Needed After Discharge none -- Current Health Anticipated Changes Related to Illness none -- Self-Care Equipment Currently Used at Home none -- Living Environment Transportation Available -- car Problem: High-Risk/Critically Ill OB Patient (Adult, Obstetrics) Goal: Signs and symptoms of listed potential problems will be absent or manageable (reference (High-Risk/Critically Ill OB Patient (Adult, Obstetrics)) CPG) Outcome: Ongoing (Interventions Implemented as Appropriate) 02/05/15 1512 High-Risk/Critically Ill OB Problems Assessed (High Risk/Critically Ill OB) all Problems Present (High Risk/Critically Ill OB) none * Plan of Care - Cristin Edgar RN - 02/07/2015 5:26 AM EDT Problem: General Plan of Care Goal: Plan of Care Review Outcome: Ongoing (Interventions Implemented as Appropriate) 02/05/15 0558 02/06/152023 Coping/Psychosocial Response Interventions Plan of Care Reviewed with -- patient Plan of Care Review Plan of Care Outcome Status ongoing (interventions implemented as appropriate) -- Progress improving -- OUTCOME EVALUATION NOTE: OUTCOME SUMMARY: Patient had a stable day today with bleeding occurring early in the am and none after that. Visited with a friend today and spoke with family on the phone this evening. Blood sugars monitored. PLAN MOVING FORWARD: Continue to monitor for vaginal bleeding and blood sugars with insulin coverage per orders. INDIVIDUALIZED FALL PREVENTION: Call fry at bedside. Path to bathroom clear. Call for assistance if needed. Assistance: Supervision: Monitor for vaginal bleeding and blood sugars. Surveillance: Purposeful rounding. CPG OUTCOME EVALUATION: No bleeding since the am. Continue to monitor for vag bleeding and blood glucose levels. Goal: Individualization and Mutuality Outcome: Ongoing (Interventions Implemented as Appropriate) 01/23/15 1752 01/31/15 1334 Individualization Individualize the Plan of Care: -- monitor for bleeding and blood glucose control,keep pt informed of any change in POC Patient Specific Preferences cluster care, keep informed with plan of care -- Patient Specific Goals -- term delivery Patient Specific Interventions cluster care, monitoring bleeding, blood glucose testing as ordered -- Mutuality/Individual Preferences What anxieties, fears or concerns do you have about your health or care? previous loss r/t abruption, concern -- What questions do you have about your health or care? none at this time, encouraged patient to verbalize as arise -- What information would help us give you more personalized care? none noted -- Goal: Fall Prevention-Safe Patient Handling Outcome: Ongoing (Interventions Implemented as Appropriate) 01/29/15 1714 01/31/15 0737 02/05/15 0750 Safety Interventions Safety Precautions/Fall Reduction lighting adjusted for task/safety;low bed;nonskid shoes/slippers when out of bed -- -- Musculoskeletal Interventions Activity/Level of Assistance -- -- -- Positioning -- -- -- Muscle Strengthening -- strengthening exercises performed;mobility in bed promoted -- Self-Care Promotion -- -- personal/BADL objects within reach Lee Fall Risk History of Falling -- -- -- Secondary Diagnosis -- -- -- Ambulatory Aids -- -- -- Intravenous Therapy/Heparin/Saline Lock -- -- -- Gait/Transferring -- -- -- Mental Status -- -- -- Score -- -- -- OTHER Lee Fall Risk -- -- -- 02/06/15 0847 02/06/152023 Safety Interventions Safety Precautions/Fall Reduction -- -- Musculoskeletal Interventions Activity/Level of Assistance -- bedrest with bathroom privileges Positioning independent -- Muscle Strengthening -- -- Self-Care Promotion -- -- Lee Fall Risk History of Falling -- 0 Secondary Diagnosis -- 0 Ambulatory Aids -- 0 Intravenous Therapy/Heparin/Saline Lock -- 20 Gait/Transferring 0 -- Mental Status -- 0 Score -- 20 OTHER Lee Fall Risk -- Low Goal: Infection Control Outcome: Ongoing (Interventions Implemented as Appropriate) 02/05/15 0750 02/06/152023 Safety Interventions Isolation Precautions standard precautions maintained -- Infection Prevention -- blood glucose management;rest/sleep promoted Coping/Psychosocial Response Interventions Counseling emotional support provided -- Goal: Discharge Needs Assessment Outcome: Ongoing (Interventions Implemented as Appropriate) 01/24/15 0320 01/31/15 1334 Discharge Needs Assessment Concerns to be Addressed -- no discharge needs identified Readmission Within the Last 30 Days no previous admission in last 30 days -- Equipment Needed After Discharge none -- Current Health Anticipated Changes Related to Illness none -- Self-Care Equipment Currently Used at Home none -- Living Environment Transportation Available -- car Problem: High-Risk/Critically Ill OB Patient (Adult, Obstetrics) Goal: Signs and symptoms of listed potential problems will be absent or manageable (reference (High-Risk/Critically Ill OB Patient (Adult, Obstetrics)) CPG) Outcome: Ongoing (Interventions Implemented as Appropriate) 02/05/15 1512 High-Risk/Critically Ill OB Problems Assessed (High Risk/Critically Ill OB) all Problems Present (High Risk/Critically Ill OB) none * Plan of Care - Janna Oliva RN - 02/05/2015 3:14 PM EDT Problem: General Plan of Care Goal: Plan of Care Review Outcome: Ongoing (Interventions Implemented as Appropriate) 02/05/15 0558 02/05/15 075 Coping/Psychosocial Response Interventions Plan of Care Reviewed with -- patient Plan of Care Review Plan of Care Outcome Status ongoing (interventions implemented as appropriate) -- Progress improving -- OUTCOME EVALUATION NOTE: OUTCOME SUMMARY: VSS. NST reactive. No VB today. PLAN MOVING FORWARD: Continue to monitor. Emotional support. INDIVIDUALIZED FALL PREVENTION: Assistance: Independent, will call for assistance PRN Supervision: independent Surveillance: Purposeful rounding CPG OUTCOME EVALUATION: Goal: Individualization and Mutuality Outcome: Ongoing (Interventions Implemented as Appropriate) 01/23/15 1752 01/31/15 1334 Individualization Individualize the Plan of Care: -- monitor for bleeding and blood glucose control,keep pt informed of any change in POC Patient Specific Preferences cluster care, keep informed with plan of care -- Patient Specific Goals -- term delivery Patient Specific Interventions cluster care, monitoring bleeding, blood glucose testing as ordered -- Mutuality/Individual Preferences What anxieties, fears or concerns do you have about your health or care? previous loss r/t abruption, concern -- What questions do you have about your health or care? none at this time, encouraged patient to verbalize as arise -- What information would help us give you more personalized care? none noted -- Goal: Fall Prevention-Safe Patient Handling Outcome: Ongoing (Interventions Implemented as Appropriate) 01/29/15 1714 01/31/15 0737 02/05/15 0750 Safety Interventions Safety Precautions/Fall Reduction lighting adjusted for task/safety;low bed;nonskid shoes/slippers when out of bed -- -- Musculoskeletal Interventions Activity/Level of Assistance -- -- bedrest with bathroom privileges Positioning -- -- independent Muscle Strengthening -- strengthening exercises performed;mobility in bed promoted -- Self-Care Promotion -- -- personal/BADL objects within reach Lee Fall Risk History of Falling -- -- 0 Secondary Diagnosis -- -- 0 Ambulatory Aids -- -- 0 Intravenous Therapy/Heparin/Saline Lock -- -- 20 Gait/Transferring -- -- 0 Mental Status -- -- 0 Score -- -- 20 OTHER Lee Fall Risk -- -- Low Goal: Infection Control Outcome: Ongoing (Interventions Implemented as Appropriate) 02/05/15 0750 Safety Interventions Isolation Precautions standard precautions maintained Infection Prevention rest/sleep promoted Coping/Psychosocial Response Interventions Counseling emotional support provided Goal: Discharge Needs Assessment Outcome: Ongoing (Interventions Implemented as Appropriate) 01/24/15 0320 01/31/15 1334 Discharge Needs Assessment Concerns to be Addressed -- no discharge needs identified Readmission Within the Last 30 Days no previous admission in last 30 days -- Equipment Needed After Discharge none -- Current Health Anticipated Changes Related to Illness none -- Self-Care Equipment Currently Used at Home none -- Living Environment Transportation Available -- car Problem: High-Risk/Critically Ill OB Patient (Adult, Obstetrics) Goal: Signs and symptoms of listed potential problems will be absent or manageable (reference (High-Risk/Critically Ill OB Patient (Adult, Obstetrics)) CPG) Outcome: Ongoing (Interventions Implemented as Appropriate) 02/05/15 1512 High-Risk/Critically Ill OB Problems Assessed (High Risk/Critically Ill OB) all Problems Present (High Risk/Critically Ill OB) none * Plan of Care - Chanelle Mackey RN - 02/05/2015 6:01 AM EDT Problem: General Plan of Care Goal: Plan of Care Review Outcome: Ongoing (Interventions Implemented as Appropriate) 02/05/15 0558 Coping/Psychosocial Response Interventions Plan of Care Reviewed with patient Plan of Care Review Plan of Care Outcome Status ongoing (interventions implemented as appropriate) Progress improving OUTCOME EVALUATION NOTE: OUTCOME SUMMARY: No active bleeding. Denies contractions, cramping, lof. movement WNL. Blood glucose WNL. PLAN MOVING FORWARD: Continue to monitor for bleeding, abdominal pain, contractions. Continue to monitor blood glucose levels and medicate as prescribed. INDIVIDUALIZED FALL PREVENTION: Assistance: Independent Supervision: Not required Surveillance: During initial assessment, purposeful rounding, and prn CPG OUTCOME EVALUATION: Goal: Individualization and Mutuality Outcome: Ongoing (Interventions Implemented as Appropriate) 01/23/15 1752 01/31/15 1334 Individualization Individualize the Plan of Care: -- monitor for bleeding and blood glucose control,keep pt informed of any change in POC Patient Specific Preferences cluster care, keep informed with plan of care -- Patient Specific Goals -- term delivery Patient Specific Interventions cluster care, monitoring bleeding, blood glucose testing as ordered -- Mutuality/Individual Preferences What anxieties, fears or concerns do you have about your health or care? previous loss r/t abruption, concern -- What questions do you have about your health or care? none at this time, encouraged patient to verbalize as arise -- What information would help us give you more personalized care? none noted -- Goal: Fall Prevention-Safe Patient Handling Outcome: Ongoing (Interventions Implemented as Appropriate) 01/29/15 1714 01/31/15 0737 02/04/15 0747 Safety Interventions Safety Precautions/Fall Reduction lighting adjusted for task/safety;low bed;nonskid shoes/slippers when out of bed -- -- Musculoskeletal Interventions Activity/Level of Assistance -- -- -- Positioning -- -- independent Muscle Strengthening -- strengthening exercises performed;mobility in bed promoted -- Self-Care Promotion -- -- -- Lee Fall Risk History of Falling -- -- -- Secondary Diagnosis -- -- -- Ambulatory Aids -- -- -- Intravenous Therapy/Heparin/Saline Lock -- -- -- Gait/Transferring -- -- -- Mental Status -- -- -- Score -- -- -- OTHER Lee Fall Risk -- -- -- 02/04/15211802/05/15 0558 Safety Interventions Safety Precautions/Fall Reduction -- -- Musculoskeletal Interventions Activity/Level of Assistance bedrest with bathroom privileges -- Positioning -- -- Muscle Strengthening -- -- Self-Care Promotion -- independence encouraged while providing assistance Lee Fall Risk History of Falling 0 -- Secondary Diagnosis 0 -- Ambulatory Aids 0 -- Intravenous Therapy/Heparin/Saline Lock 0 -- Gait/Transferring 0 -- Mental Status 0 -- Score 0 -- OTHER Lee Fall Risk Low -- Goal: Infection Control Outcome: Ongoing (Interventions Implemented as Appropriate) 02/03/15 0800 02/04/15 0747 Safety Interventions Isolation Precautions -- standard precautions maintained Infection Prevention rest/sleep promoted;promote handwashing;nutrition promoted;hydration promoted -- Coping/Psychosocial Response Interventions Counseling calming techniques promoted;emotional support provided;problem solving facilitated;reassurance provided;relaxation techniques promoted;understanding of situation facilitated;verbalization of feelings encouraged -- Goal: Discharge Needs Assessment Outcome: Ongoing (Interventions Implemented as Appropriate) 01/24/15 0320 01/31/15 1334 Discharge Needs Assessment Concerns to be Addressed -- no discharge needs identified Readmission Within the Last 30 Days no previous admission in last 30 days -- Equipment Needed After Discharge none -- Current Health Anticipated Changes Related to Illness none -- Self-Care Equipment Currently Used at Home none -- Living Environment Transportation Available -- car Problem: High-Risk/Critically Ill OB Patient (Adult, Obstetrics) Goal: Signs and symptoms of listed potential problems will be absent or manageable (reference (High-Risk/Critically Ill OB Patient (Adult, Obstetrics)) C[facility]) Outcome: Ongoing (Interventions Implemented as Appropriate) 02/05/15 0558 High-Risk/Critically Ill OB Problems Assessed (High Risk/Critically Ill OB) all Problems Present (High Risk/Critically Ill OB) none * Plan of Care - Mayte Ayala RN - 02/04/2015 2:50 PM EDT Problem: General Plan of Care Goal: Plan of Care Review Outcome: Ongoing (Interventions Implemented as Appropriate) 02/04/15 1446 Coping/Psychosocial Response Interventions Plan of Care Reviewed with patient Plan of Care Review Plan of Care Outcome Status ongoing (interventions implemented as appropriate) Progress improving OUTCOME EVALUATION NOTE: OUTCOME SUMMARY: Pt has been feeling tired and off today but with no major complaints. Had small bleed this morning, MD aware. No no bleeding this afternoon. Pt texting with family. Pt trying to nap now. PLAN MOVING FORWARD: Cont to monitor for bleeding and well being with daily NSTs, and GDM monitoring.. INDIVIDUALIZED FALL PREVENTION: Assistance: Ind Supervision: Call light within reach Surveillance: Purposeful rounding [facility] OUTCOME EVALUATION: Goal: Individualization and Mutuality Outcome: Ongoing (Interventions Implemented as Appropriate) 01/23/15 1752 01/31/15 1334 Individualization Individualize the Plan of Care: -- monitor for bleeding and blood glucose control,keep pt informed of any change in POC Patient Specific Preferences cluster care, keep informed with plan of care -- Patient Specific Goals -- term delivery Patient Specific Interventions cluster care, monitoring bleeding, blood glucose testing as ordered -- Mutuality/Individual Preferences What anxieties, fears or concerns do you have about your health or care? previous loss r/t abruption, concern -- What questions do you have about your health or care? none at this time, encouraged patient to verbalize as arise -- What information would help us give you more personalized care? none noted -- Goal: Fall Prevention-Safe Patient Handling Outcome: Ongoing (Interventions Implemented as Appropriate) 01/29/15 1714 01/31/15 0737 02/03/151999 Safety Interventions Safety Precautions/Fall Reduction lighting adjusted for task/safety;low bed;nonskid shoes/slippers when out of bed -- -- Musculoskeletal Interventions Activity/Level of Assistance -- -- -- Positioning -- -- -- Muscle Strengthening -- strengthening exercises performed;mobility in bed promoted -- Self-Care Promotion -- -- hygiene assistance provided Lee Fall Risk History of Falling -- -- -- Secondary Diagnosis -- -- -- Ambulatory Aids -- -- -- Intravenous Therapy/Heparin/Saline Lock -- -- -- Gait/Transferring -- -- -- Mental Status -- -- -- Score -- -- -- OTHER Lee Fall Risk -- -- -- 02/04/15 0747 Safety Interventions Safety Precautions/Fall Reduction -- Musculoskeletal Interventions Activity/Level of Assistance up ad zeus Positioning independent Muscle Strengthening -- Self-Care Promotion -- Lee Fall Risk History of Falling 0 Secondary Diagnosis 0 Ambulatory Aids 0 Intravenous Therapy/Heparin/Saline Lock 0 Gait/Transferring 0 Mental Status 0 Score 0 OTHER Lee Fall Risk Low Goal: Infection Control Outcome: Ongoing (Interventions Implemented as Appropriate) 02/03/15 0800 02/04/15 0747 Safety Interventions Isolation Precautions -- standard precautions maintained Infection Prevention rest/sleep promoted;promote handwashing;nutrition promoted;hydration promoted -- Coping/Psychosocial Response Interventions Counseling calming techniques promoted;emotional support provided;problem solving facilitated;reassurance provided;relaxation techniques promoted;understanding of situation facilitated;verbalization of feelings encouraged -- Goal: Discharge Needs Assessment Outcome: Ongoing (Interventions Implemented as Appropriate) 01/24/15 0320 01/31/15 1334 Discharge Needs Assessment Concerns to be Addressed -- no discharge needs identified Readmission Within the Last 30 Days no previous admission in last 30 days -- Equipment Needed After Discharge none -- Current Health Anticipated Changes Related to Illness none -- Self-Care Equipment Currently Used at Home none -- Living Environment Transportation Available -- car Problem: High-Risk/Critically Ill OB Patient (Adult, Obstetrics) Goal: Signs and symptoms of listed potential problems will be absent or manageable (reference (High-Risk/Critically Ill OB Patient (Adult, Obstetrics)) C[facility]) Outcome: Ongoing (Interventions Implemented as Appropriate) 02/04/15 1446 High-Risk/Critically Ill OB Problems Assessed (High Risk/Critically Ill OB) all Problems Present (High Risk/Critically Ill OB) none * Plan of Care - Chanelle Mackey RN - 02/04/2015 5:34 AM EDT Problem: General Plan of Care Goal: Plan of Care Review Outcome: Ongoing (Interventions Implemented as Appropriate) 01/31/15 1334 02/03/151999 Coping/Psychosocial Response Interventions Plan of Care Reviewed with -- patient Plan of Care Review Plan of Care Outcome Status ongoing (interventions implemented as appropriate) -- Progress progress toward functional goals as expected -- OUTCOME EVALUATION NOTE: OUTCOME SUMMARY: Slept well. Blood glucose coverage not needed. No bleeding, ctx, cramping. PLAN MOVING FORWARD: Continue to monitor bleeding, FHR, contractions, and cramping. Continue to monitor blood glucose and treat as ordered. INDIVIDUALIZED FALL PREVENTION: Assistance: Independent Supervision: Not required Surveillance: During initial shift assessment, purposeful rounding, and prn. [facility] OUTCOME EVALUATION: Goal: Individualization and Mutuality Outcome: Ongoing (Interventions Implemented as Appropriate) 01/23/15 1752 01/31/15 1334 Individualization Individualize the Plan of Care: -- monitor for bleeding and blood glucose control,keep pt informed of any change in POC Patient Specific Preferences cluster care, keep informed with plan of care -- Patient Specific Goals -- term delivery Patient Specific Interventions cluster care, monitoring bleeding, blood glucose testing as ordered -- Mutuality/Individual Preferences What anxieties, fears or concerns do you have about your health or care? previous loss r/t abruption, concern -- What questions do you have about your health or care? none at this time, encouraged patient to verbalize as arise -- What information would help us give you more personalized care? none noted -- Goal: Fall Prevention-Safe Patient Handling Outcome: Ongoing (Interventions Implemented as Appropriate) 01/29/15 1714 01/31/15 0737 02/03/151999 Safety Interventions Safety Precautions/Fall Reduction lighting adjusted for task/safety;low bed;nonskid shoes/slippers when out of bed -- -- Musculoskeletal Interventions Activity/Level of Assistance -- -- up ad zeus Positioning -- -- independent Muscle Strengthening -- strengthening exercises performed;mobility in bed promoted -- Self-Care Promotion -- -- hygiene assistance provided Lee Fall Risk History of Falling -- -- 0 Secondary Diagnosis -- -- 0 Ambulatory Aids -- -- 0 Intravenous Therapy/Heparin/Saline Lock -- -- 0 Gait/Transferring -- -- 0 Mental Status -- -- 0 Score -- -- 0 OTHER Lee Fall Risk -- -- Low Goal: Infection Control Outcome: Ongoing (Interventions Implemented as Appropriate) 02/03/15 0800 Safety Interventions Isolation Precautions standard precautions maintained Infection Prevention rest/sleep promoted;promote handwashing;nutrition promoted;hydration promoted Coping/Psychosocial Response Interventions Counseling calming techniques promoted;emotional support provided;problem solving facilitated;reassurance provided;relaxation techniques promoted;understanding of situation facilitated;verbalization of feelings encouraged Goal: Discharge Needs Assessment Outcome: Ongoing (Interventions Implemented as Appropriate) 01/24/15 0320 01/31/15 1334 Discharge Needs Assessment Concerns to be Addressed -- no discharge needs identified Readmission Within the Last 30 Days no previous admission in last 30 days -- Equipment Needed After Discharge none -- Current Health Anticipated Changes Related to Illness none -- Self-Care Equipment Currently Used at Home none -- Living Environment Transportation Available -- car Problem: High-Risk/Critically Ill OB Patient (Adult, Obstetrics) Goal: Signs and symptoms of listed potential problems will be absent or manageable (reference (High-Risk/Critically Ill OB Patient (Adult, Obstetrics)) CPG) Outcome: Ongoing (Interventions Implemented as Appropriate) 02/03/15 0501 High-Risk/Critically Ill OB Problems Assessed (High Risk/Critically Ill OB) all Problems Present (High Risk/Critically Ill OB) none * Plan of Care - Michell Maynard RN - 02/03/2015 5:59 PM EDT Problem: General Plan of Care Goal: Plan of Care Review Outcome: Outcome (s) achieved Date Met: 02/03/15 01/31/15133302/03/15 08 Coping/Psychosocial Response Interventions Plan of Care Reviewed with -- patient Plan of Care Review Plan of Care Outcome Status ongoing (interventions implemented as appropriate) -- Progress progress toward functional goals as expected -- Goal: Individualization and Mutuality Outcome: Outcome (s) achieved Date Met: 02/03/15 01/23/15 1752 01/31/151333 Individualization Individualize the Plan of Care: -- monitor for bleeding and blood glucose control,keep pt informed of any change in POC Patient Specific Preferences cluster care, keep informed with plan of care -- Patient Specific Goals -- term delivery Patient Specific Interventions cluster care, monitoring bleeding, blood glucose testing as ordered -- Mutuality/Individual Preferences What anxieties, fears or concerns do you have about your health or care? previous loss r/t abruption, concern -- What questions do you have about your health or care? none at this time, encouraged patient to verbalize as arise -- What information would help us give you more personalized care? none noted -- Goal: Fall Prevention-Safe Patient Handling Outcome: Outcome (s) achieved Date Met: 02/03/15 01/29/15 1714 01/31/15 0737 02/02/15 08 Safety Interventions Safety Precautions/Fall Reduction lighting adjusted for task/safety;low bed;nonskid shoes/slippers when out of bed -- -- Musculoskeletal Interventions Activity/Level of Assistance -- -- -- Positioning -- -- -- Muscle Strengthening -- strengthening exercises performed;mobility in bed promoted -- Self-Care Promotion -- -- independence encouraged while providing assistance;hygiene assistance provided Lee Fall Risk History of Falling -- -- -- Secondary Diagnosis -- -- -- Ambulatory Aids -- -- -- Intravenous Therapy/Heparin/Saline Lock -- -- -- Gait/Transferring -- -- -- Mental Status -- -- -- Score -- -- -- OTHER Lee Fall Risk -- -- -- 02/03/15 08 Safety Interventions Safety Precautions/Fall Reduction -- Musculoskeletal Interventions Activity/Level of Assistance up ad zeus;independently Positioning independent Muscle Strengthening -- Self-Care Promotion -- Lee Fall Risk History of Falling 0 Secondary Diagnosis 0 Ambulatory Aids 0 Intravenous Therapy/Heparin/Saline Lock 20 Gait/Transferring 0 Mental Status 0 Score 20 OTHER Lee Fall Risk Low Goal: Infection Control Outcome: Outcome (s) achieved Date Met: 02/03/15 02/03/15 08 Safety Interventions Isolation Precautions standard precautions maintained Infection Prevention rest/sleep promoted;promote handwashing;nutrition promoted;hydration promoted Coping/Psychosocial Response Interventions Counseling calming techniques promoted;emotional support provided;problem solving facilitated;reassurance provided;relaxation techniques promoted;understanding of situation facilitated;verbalization of feelings encouraged Goal: Discharge Needs Assessment Outcome: Outcome (s) achieved Date Met: 02/03/15 01/24/15 0320 01/31/15 1334 Discharge Needs Assessment Concerns to be Addressed -- no discharge needs identified Readmission Within the Last 30 Days no previous admission in last 30 days -- Equipment Needed After Discharge none -- Current Health Anticipated Changes Related to Illness none -- Self-Care Equipment Currently Used at Home none -- Living Environment Transportation Available -- car Problem: High-Risk/Critically Ill OB Patient (Adult, Obstetrics) Goal: Signs and symptoms of listed potential problems will be absent or manageable (reference (High-Risk/Critically Ill OB Patient (Adult, Obstetrics)) [facility]) 02/03/15 0501 High-Risk/Critically Ill OB Problems Assessed (High Risk/Critically Ill OB) all Problems Present (High Risk/Critically Ill OB) none Comments: OUTCOME EVALUATION NOTE: OUTCOME SUMMARY: BG monitoring and malignance. Bleed-free day 2. VS WNL, reactive NST PLAN MOVING FORWARD Continue with , monitor for bleeding. BG monitoring. NST daily. INDIVIDUALIZED FALL PREVENTION: Assistance: Independent Supervision: Nurse Surveillance: Purposeful rounding [facility] OUTCOME EVALUATION: * Plan of Care - Camila Kraft RN - 02/03/2015 5:29 AM EDT Problem: General Plan of Care Goal: Plan of Care Review Outcome: Ongoing (Interventions Implemented as Appropriate) 01/31/15 1334 02/02/15 1807 Coping/Psychosocial Response Interventions Plan of Care Reviewed with -- patient Plan of Care Review Plan of Care Outcome Status ongoing (interventions implemented as appropriate) -- Progress progress toward functional goals as expected -- OUTCOME EVALUATION NOTE: OUTCOME SUMMARY: Patient with vital signs stable, resting well throughout the night, no further bleeding noted thus far on this shift. PLAN MOVING FORWARD: Continue to monitor VS, NST and assess for bleeding. INDIVIDUALIZED FALL PREVENTION: Assistance: Independent Supervision: Nurse Surveillance: Purposeful rounding. CPG OUTCOME EVALUATION: Goal: Individualization and Mutuality Outcome: Ongoing (Interventions Implemented as Appropriate) 01/23/15 1752 01/31/15 1334 Individualization Individualize the Plan of Care: -- monitor for bleeding and blood glucose control,keep pt informed of any change in POC Patient Specific Preferences cluster care, keep informed with plan of care -- Patient Specific Goals -- term delivery Patient Specific Interventions cluster care, monitoring bleeding, blood glucose testing as ordered -- Mutuality/Individual Preferences What anxieties, fears or concerns do you have about your health or care? previous loss r/t abruption, concern -- What questions do you have about your health or care? none at this time, encouraged patient to verbalize as arise -- What information would help us give you more personalized care? none noted -- Goal: Fall Prevention-Safe Patient Handling Outcome: Ongoing (Interventions Implemented as Appropriate) 01/29/15 1714 01/31/15 0737 02/02/15 08 Safety Interventions Safety Precautions/Fall Reduction lighting adjusted for task/safety;low bed;nonskid shoes/slippers when out of bed -- -- Musculoskeletal Interventions Activity/Level of Assistance -- -- up ad zeus;independently;bedrest with bathroom privileges Positioning -- -- independent Muscle Strengthening -- strengthening exercises performed;mobility in bed promoted -- Self-Care Promotion -- -- independence encouraged while providing assistance;hygiene assistance provided Lee Fall Risk History of Falling -- -- -- Secondary Diagnosis -- -- -- Ambulatory Aids -- -- -- Intravenous Therapy/Heparin/Saline Lock -- -- -- Gait/Transferring -- -- -- Mental Status -- -- -- Score -- -- -- OTHER Lee Fall Risk -- -- Low 02/02/151806 Safety Interventions Safety Precautions/Fall Reduction -- Musculoskeletal Interventions Activity/Level of Assistance -- Positioning -- Muscle Strengthening -- Self-Care Promotion -- Lee Fall Risk History of Falling 0 Secondary Diagnosis 0 Ambulatory Aids 0 Intravenous Therapy/Heparin/Saline Lock 20 Gait/Transferring 0 Mental Status 0 Score 20 OTHER Lee Fall Risk -- Goal: Infection Control Outcome: Ongoing (Interventions Implemented as Appropriate) 02/02/15 0802/02/151806 Safety Interventions Isolation Precautions standard precautions maintained -- Infection Prevention rest/sleep promoted;promote handwashing;nutrition promoted;hydration promoted -- Coping/Psychosocial Response Interventions Counseling -- calming techniques promoted;emotional support provided;guided imagery facilitated;journaling promoted;personal strengths integrated;problem solving facilitated;reassurance provided;relaxation techniques promoted;understanding of situation facilitated;verbalization of feelings encouraged Goal: Discharge Needs Assessment Outcome: Ongoing (Interventions Implemented as Appropriate) 01/24/15 0320 01/31/15 1334 Discharge Needs Assessment Concerns to be Addressed -- no discharge needs identified Readmission Within the Last 30 Days no previous admission in last 30 days -- Equipment Needed After Discharge none -- Current Health Anticipated Changes Related to Illness none -- Self-Care Equipment Currently Used at Home none -- Living Environment Transportation Available -- car Problem: High-Risk/Critically Ill OB Patient (Adult, Obstetrics) Goal: Signs and symptoms of listed potential problems will be absent or manageable (reference (High-Risk/Critically Ill OB Patient (Adult, Obstetrics)) C[facility]) Outcome: Ongoing (Interventions Implemented as Appropriate) 02/03/15 0501 High-Risk/Critically Ill OB Problems Assessed (High Risk/Critically Ill OB) all Problems Present (High Risk/Critically Ill OB) none * Plan of Care - Lorri Neville - 02/02/2015 4:10 PM EDT Problem: General Plan of Care Goal: Plan of Care Review Outcome: Ongoing (Interventions Implemented as Appropriate) 01/31/15 1334 02/02/15 0800 Coping/Psychosocial Response Interventions Plan of Care Reviewed with -- patient Plan of Care Review Plan of Care Outcome Status ongoing (interventions implemented as appropriate) -- Progress progress toward functional goals as expected -- OUTCOME EVALUATION NOTE: OUTCOME SUMMARY: Pt had episode of vaginal bleeding (see note for details). Denies leaking of fluid, VSS, denies PARR and s/s of pre-eclampsia. PLAN MOVING FORWARD: Continue to monitor for more vaginal bleeding. INDIVIDUALIZED FALL PREVENTION: Assistance: none Supervision: Pt independent with ADL's Surveillance: Purposeful rounding. [facility] OUTCOME EVALUATION: Goal: Individualization and Mutuality Outcome: Ongoing (Interventions Implemented as Appropriate) 01/23/15 1752 01/31/15 1334 Individualization Individualize the Plan of Care: -- monitor for bleeding and blood glucose control,keep pt informed of any change in POC Patient Specific Preferences cluster care, keep informed with plan of care -- Patient Specific Goals -- term delivery Patient Specific Interventions cluster care, monitoring bleeding, blood glucose testing as ordered -- Mutuality/Individual Preferences What anxieties, fears or concerns do you have about your health or care? previous loss r/t abruption, concern -- What questions do you have about your health or care? none at this time, encouraged patient to verbalize as arise -- What information would help us give you more personalized care? none noted -- Goal: Fall Prevention-Safe Patient Handling Outcome: Ongoing (Interventions Implemented as Appropriate) 01/29/15 1714 01/31/15 0737 02/02/15 0800 Safety Interventions Safety Precautions/Fall Reduction lighting adjusted for task/safety;low bed;nonskid shoes/slippers when out of bed -- -- Musculoskeletal Interventions Activity/Level of Assistance -- -- up ad zeus;independently;bedrest with bathroom privileges Positioning -- -- independent Muscle Strengthening -- strengthening exercises performed;mobility in bed promoted -- Self-Care Promotion -- -- independence encouraged while providing assistance;hygiene assistance provided Lee Fall Risk History of Falling -- -- 0 Secondary Diagnosis -- -- 0 Ambulatory Aids -- -- 0 Intravenous Therapy/Heparin/Saline Lock -- -- 20 Gait/Transferring -- -- 0 Mental Status -- -- 0 Score -- -- 20 OTHER Lee Fall Risk -- -- Low Goal: Infection Control Outcome: Ongoing (Interventions Implemented as Appropriate) 02/02/15 0800 Safety Interventions Isolation Precautions standard precautions maintained Infection Prevention rest/sleep promoted;promote handwashing;nutrition promoted;hydration promoted Coping/Psychosocial Response Interventions Counseling calming techniques promoted;emotional support provided;relaxation techniques promoted;understanding of situation facilitated;verbalization of feelings encouraged Goal: Discharge Needs Assessment Outcome: Ongoing (Interventions Implemented as Appropriate) 01/24/15 0320 01/31/15 1334 Discharge Needs Assessment Concerns to be Addressed -- no discharge needs identified Readmission Within the Last 30 Days no previous admission in last 30 days -- Equipment Needed After Discharge none -- Current Health Anticipated Changes Related to Illness none -- Self-Care Equipment Currently Used at Home none -- Living Environment Transportation Available -- car Problem: High-Risk/Critically Ill OB Patient (Adult, Obstetrics) Goal: Signs and symptoms of listed potential problems will be absent or manageable (reference (High-Risk/Critically Ill OB Patient (Adult, Obstetrics)) CPG) Outcome: Ongoing (Interventions Implemented as Appropriate) 02/02/15 1606 High-Risk/Critically Ill OB Problems Assessed (High Risk/Critically Ill OB) all Problems Present (High Risk/Critically Ill OB) none * Plan of Care - Ilana Martinez I RN - 02/02/2015 4:07 AM EDT Problem: General Plan of Care Goal: Plan of Care Review Outcome: Outcome (s) achieved Date Met: 02/02/15 01/31/15 1334 01/31/15 2131 Coping/Psychosocial Response Interventions Plan of Care Reviewed with -- patient Plan of Care Review Plan of Care Outcome Status ongoing (interventions implemented as appropriate) -- Progress progress toward functional goals as expected -- OUTCOME EVALUATION NOTE: OUTCOME SUMMARY: Pt reports feeling well tonight, denies any ctx, bleeding or leaking of fluid, fetus active, vss. PLAN MOVING FORWARD: Continue to monitor for bleeding, ptl and blood sugars INDIVIDUALIZED FALL PREVENTION: Assistance: Independent Supervision: Call light in reach for additional assist Surveillance: Purposeful rounding, daily NST, blood sugars, vital signs per protocal CPG OUTCOME EVALUATION: Goal: Individualization and Mutuality Outcome: Ongoing (Interventions Implemented as Appropriate) 01/23/15 17501/31/15 1334 Individualization Individualize the Plan of Care: -- monitor for bleeding and blood glucose control,keep pt informed of any change in POC Patient Specific Preferences cluster care, keep informed with plan of care -- Patient Specific Goals -- term delivery Patient Specific Interventions cluster care, monitoring bleeding, blood glucose testing as ordered -- Mutuality/Individual Preferences What anxieties, fears or concerns do you have about your health or care? previous loss r/t abruption, concern -- What questions do you have about your health or care? none at this time, encouraged patient to verbalize as arise -- What information would help us give you more personalized care? none noted -- Goal: Fall Prevention-Safe Patient Handling Outcome: Ongoing (Interventions Implemented as Appropriate) 01/29/15 1714 01/30/15201401/31/15 0737 Safety Interventions Safety Precautions/Fall Reduction lighting adjusted for task/safety;low bed;nonskid shoes/slippers when out of bed -- -- Musculoskeletal Interventions Activity/Level of Assistance -- -- -- Positioning -- -- -- Muscle Strengthening -- -- strengthening exercises performed;mobility in bed promoted Self-Care Promotion -- independence encouraged while providing assistance -- Lee Fall Risk History of Falling -- -- -- Secondary Diagnosis -- -- -- Ambulatory Aids -- -- -- Intravenous Therapy/Heparin/Saline Lock -- -- -- Gait/Transferring -- -- -- Mental Status -- -- -- Score -- -- -- OTHER Lee Fall Risk -- -- -- 01/31/15213002/01/15 0730 Safety Interventions Safety Precautions/Fall Reduction -- -- Musculoskeletal Interventions Activity/Level of Assistance -- up in room Positioning independent -- Muscle Strengthening -- -- Self-Care Promotion -- -- Lee Fall Risk History of Falling -- 0 Secondary Diagnosis -- 0 Ambulatory Aids -- 0 Intravenous Therapy/Heparin/Saline Lock -- 20 Gait/Transferring -- 0 Mental Status -- 0 Score -- 20 OTHER Lee Fall Risk -- Low Goal: Infection Control Outcome: Ongoing (Interventions Implemented as Appropriate) 01/31/15 1334 01/31/15213002/01/15729 Safety Interventions Isolation Precautions -- -- standard precautions maintained Infection Prevention -- promote handwashing -- Coping/Psychosocial Response Interventions Counseling personal strengths integrated;problem solving facilitated;reassurance provided;relaxation techniques promoted;understanding of situation facilitated;verbalization of feelings encouraged;emotional support provided -- -- Goal: Discharge Needs Assessment Outcome: Ongoing (Interventions Implemented as Appropriate) 01/24/1531901/31/154 Discharge Needs Assessment Concerns to be Addressed -- no discharge needs identified Readmission Within the Last 30 Days no previous admission in last 30 days -- Equipment Needed After Discharge none -- Current Health Anticipated Changes Related to Illness none -- Self-Care Equipment Currently Used at Home none -- Living Environment Transportation Available -- car Problem: High-Risk/Critically Ill OB Patient (Adult, Obstetrics) Goal: Signs and symptoms of listed potential problems will be absent or manageable (reference (High-Risk/Critically Ill OB Patient (Adult, Obstetrics)) CPG) Outcome: Ongoing (Interventions Implemented as Appropriate) 02/01/15 1627 High-Risk/Critically Ill OB Problems Assessed (High Risk/Critically Ill OB) all Problems Present (High Risk/Critically Ill OB) none * Plan of Care - Mayte Ayala RN - 02/01/2015 4:31 PM EDT Problem: General Plan of Care Goal: Plan of Care Review Outcome: Ongoing (Interventions Implemented as Appropriate) OUTCOME EVALUATION NOTE: OUTCOME SUMMARY: Pt has had an uneventful day visiting with friends. No c/o bleeding. Sugars WNL. PLAN MOVING FORWARD: Continue to monitor for bleeding and well being. INDIVIDUALIZED FALL PREVENTION: Assistance: Pt ind Supervision: Call light within reach Surveillance: Purposeful rounding CPG OUTCOME EVALUATION: Goal: Individualization and Mutuality Outcome: Ongoing (Interventions Implemented as Appropriate) 01/23/15 17501/31/15 1334 Individualization Individualize the Plan of Care: -- monitor for bleeding and blood glucose control,keep pt informed of any change in POC Patient Specific Preferences cluster care, keep informed with plan of care -- Patient Specific Goals -- term delivery Patient Specific Interventions cluster care, monitoring bleeding, blood glucose testing as ordered -- Mutuality/Individual Preferences What anxieties, fears or concerns do you have about your health or care? previous loss r/t abruption, concern -- What questions do you have about your health or care? none at this time, encouraged patient to verbalize as arise -- What information would help us give you more personalized care? none noted -- Goal: Fall Prevention-Safe Patient Handling Outcome: Ongoing (Interventions Implemented as Appropriate) 01/29/15 1714 01/30/15201401/31/15 0737 Safety Interventions Safety Precautions/Fall Reduction lighting adjusted for task/safety;low bed;nonskid shoes/slippers when out of bed -- -- Musculoskeletal Interventions Activity/Level of Assistance -- -- -- Positioning -- -- -- Muscle Strengthening -- -- strengthening exercises performed;mobility in bed promoted Self-Care Promotion -- independence encouraged while providing assistance -- Lee Fall Risk History of Falling -- -- -- Secondary Diagnosis -- -- -- Ambulatory Aids -- -- -- Intravenous Therapy/Heparin/Saline Lock -- -- -- Gait/Transferring -- -- -- Mental Status -- -- -- Score -- -- -- OTHER Lee Fall Risk -- -- -- 01/31/15 21302/01/15 0730 Safety Interventions Safety Precautions/Fall Reduction -- -- Musculoskeletal Interventions Activity/Level of Assistance -- up in room Positioning independent -- Muscle Strengthening -- -- Self-Care Promotion -- -- Lee Fall Risk History of Falling -- 0 Secondary Diagnosis -- 0 Ambulatory Aids -- 0 Intravenous Therapy/Heparin/Saline Lock -- 20 Gait/Transferring -- 0 Mental Status -- 0 Score -- 20 OTHER Lee Fall Risk -- Low Goal: Infection Control Outcome: Ongoing (Interventions Implemented as Appropriate) 01/31/15133301/31/15213002/01/15 0730 Safety Interventions Isolation Precautions -- -- standard precautions maintained Infection Prevention -- promote handwashing -- Coping/Psychosocial Response Interventions Counseling personal strengths integrated;problem solving facilitated;reassurance provided;relaxation techniques promoted;understanding of situation facilitated;verbalization of feelings encouraged;emotional support provided -- -- Goal: Discharge Needs Assessment Outcome: Ongoing (Interventions Implemented as Appropriate) 01/24/15 0320 01/31/151333 Discharge Needs Assessment Concerns to be Addressed -- no discharge needs identified Readmission Within the Last 30 Days no previous admission in last 30 days -- Equipment Needed After Discharge none -- Current Health Anticipated Changes Related to Illness none -- Self-Care Equipment Currently Used at Home none -- Living Environment Transportation Available -- car Problem: High-Risk/Critically Ill OB Patient (Adult, Obstetrics) Goal: Signs and symptoms of listed potential problems will be absent or manageable (reference (High-Risk/Critically Ill OB Patient (Adult, Obstetrics)) CPG) Outcome: Ongoing (Interventions Implemented as Appropriate) 02/01/15 1627 High-Risk/Critically Ill OB Problems Assessed (High Risk/Critically Ill OB) all Problems Present (High Risk/Critically Ill OB) none * Plan of Care - Ilana Martinez RN - 02/01/2015 5:26 AM EDT Problem: General Plan of Care Goal: Plan of Care Review Outcome: Ongoing (Interventions Implemented as Appropriate) 01/31/15133301/31/152130 Coping/Psychosocial Response Interventions Plan of Care Reviewed with -- patient Plan of Care Review Plan of Care Outcome Status ongoing (interventions implemented as appropriate) -- Progress progress toward functional goals as expected -- OUTCOME EVALUATION NOTE: OUTCOME SUMMARY: Pt in a pleasant mood tonight, denies any bleeding, leaking of fluid or contractions this shift, denies pain when asked, reports active fetus, vss. PLAN MOVING FORWARD: Continue with , monitor for bleeding and s/s of ptl INDIVIDUALIZED FALL PREVENTION: Assistance: independent Supervision: Call light in reach for additional assist Surveillance: Purposeful rounding, daily NST, vital signs per protocol CPG OUTCOME EVALUATION: Goal: Individualization and Mutuality Outcome: Ongoing (Interventions Implemented as Appropriate) 01/23/15 17501/31/15 1334 Individualization Individualize the Plan of Care: -- monitor for bleeding and blood glucose control,keep pt informed of any change in POC Patient Specific Preferences cluster care, keep informed with plan of care -- Patient Specific Goals -- term delivery Patient Specific Interventions cluster care, monitoring bleeding, blood glucose testing as ordered -- Mutuality/Individual Preferences What anxieties, fears or concerns do you have about your health or care? previous loss r/t abruption, concern -- What questions do you have about your health or care? none at this time, encouraged patient to verbalize as arise -- What information would help us give you more personalized care? none noted -- Goal: Fall Prevention-Safe Patient Handling Outcome: Ongoing (Interventions Implemented as Appropriate) 01/29/15 1714 01/30/15201401/31/15 0737 Safety Interventions Safety Precautions/Fall Reduction lighting adjusted for task/safety;low bed;nonskid shoes/slippers when out of bed -- -- Musculoskeletal Interventions Activity/Level of Assistance -- -- -- Positioning -- -- -- Muscle Strengthening -- -- strengthening exercises performed;mobility in bed promoted Self-Care Promotion -- independence encouraged while providing assistance -- Lee Fall Risk History of Falling -- -- -- Secondary Diagnosis -- -- -- Ambulatory Aids -- -- -- Intravenous Therapy/Heparin/Saline Lock -- -- -- Gait/Transferring -- -- -- Mental Status -- -- -- Score -- -- -- OTHER Lee Fall Risk -- -- -- 01/31/152130 Safety Interventions Safety Precautions/Fall Reduction -- Musculoskeletal Interventions Activity/Level of Assistance independently;bedrest with bathroom privileges Positioning independent Muscle Strengthening -- Self-Care Promotion -- Lee Fall Risk History of Falling 0 Secondary Diagnosis 0 Ambulatory Aids 0 Intravenous Therapy/Heparin/Saline Lock 20 Gait/Transferring 0 Mental Status 0 Score 20 OTHER Lee Fall Risk Low Goal: Infection Control Outcome: Ongoing (Interventions Implemented as Appropriate) 01/31/15 1334 01/31/15 2131 Safety Interventions Isolation Precautions -- standard precautions maintained Infection Prevention -- promote handwashing Coping/Psychosocial Response Interventions Counseling personal strengths integrated;problem solving facilitated;reassurance provided;relaxation techniques promoted;understanding of situation facilitated;verbalization of feelings encouraged;emotional support provided -- Goal: Discharge Needs Assessment Outcome: Ongoing (Interventions Implemented as Appropriate) 01/24/15 0320 01/31/15 1334 Discharge Needs Assessment Concerns to be Addressed -- no discharge needs identified Readmission Within the Last 30 Days no previous admission in last 30 days -- Equipment Needed After Discharge none -- Current Health Anticipated Changes Related to Illness none -- Self-Care Equipment Currently Used at Home none -- Living Environment Transportation Available -- car Problem: High-Risk/Critically Ill OB Patient (Adult, Obstetrics) Goal: Signs and symptoms of listed potential problems will be absent or manageable (reference (High-Risk/Critically Ill OB Patient (Adult, Obstetrics)) CPG) Outcome: Ongoing (Interventions Implemented as Appropriate) 02/01/15 0521 High-Risk/Critically Ill OB Problems Assessed (High Risk/Critically Ill OB) all Problems Present (High Risk/Critically Ill OB) none * Plan of Care - Kirsten Berman RN - 01/31/2015 1:53 PM EDT Problem: General Plan of Care Goal: Plan of Care Review Outcome: Ongoing (Interventions Implemented as Appropriate) 01/31/15 1334 Coping/Psychosocial Response Interventions Plan of Care Reviewed with patient Plan of Care Review Plan of Care Outcome Status ongoing (interventions implemented as appropriate) Progress progress toward functional goals as expected OUTCOME EVALUATION NOTE: OUTCOME SUMMARY: Pt is having a stable day. VSS She reports scant brown discharge on toilet tissue. Drs. Valles and Italo are aware. This discharge has not changed her bleed -free count down. PLAN MOVING FORWARD: Continue monitoring per CPG for pre-term bleeding SAFE SLEEP EDUCATION PROVIDED: Reading materials given INDIVIDUALIZED FALL PREVENTION: remind pt to call staff if assistance is needed Surveillance:purposeful rounding CPG GOAL OUTCOME EVALUATION: Goal: Individualization and Mutuality Outcome: Ongoing (Interventions Implemented as Appropriate) 01/23/15 17501/31/151333 Individualization Individualize the Plan of Care: -- monitor for bleeding and blood glucose control,keep pt informed of any change in POC Patient Specific Preferences cluster care, keep informed with plan of care -- Patient Specific Goals -- term delivery Patient Specific Interventions cluster care, monitoring bleeding, blood glucose testing as ordered -- Mutuality/Individual Preferences What anxieties, fears or concerns do you have about your health or care? previous loss r/t abruption, concern -- What questions do you have about your health or care? none at this time, encouraged patient to verbalize as arise -- What information would help us give you more personalized care? none noted -- Goal: Fall Prevention-Safe Patient Handling Outcome: Ongoing (Interventions Implemented as Appropriate) 01/29/15 17101/30/15201401/31/15 0737 Safety Interventions Safety Precautions/Fall Reduction lighting adjusted for task/safety;low bed;nonskid shoes/slippers when out of bed -- -- Musculoskeletal Interventions Activity/Level of Assistance -- -- bedrest with bathroom privileges Positioning -- independent -- Muscle Strengthening -- -- strengthening exercises performed;mobility in bed promoted Self-Care Promotion -- independence encouraged while providing assistance -- Lee Fall Risk History of Falling -- -- 0 Secondary Diagnosis -- -- 0 Ambulatory Aids -- -- 0 Intravenous Therapy/Heparin/Saline Lock -- -- 20 Gait/Transferring -- -- 0 Mental Status -- -- 0 Score -- -- 20 OTHER Lee Fall Risk -- -- Low Goal: Infection Control Outcome: Ongoing (Interventions Implemented as Appropriate) 01/31/15 133 Safety Interventions Isolation Precautions standard precautions maintained Infection Prevention hydration promoted;promote handwashing;nutrition promoted;rest/sleep promoted Coping/Psychosocial Response Interventions Counseling personal strengths integrated;problem solving facilitated;reassurance provided;relaxation techniques promoted;understanding of situation facilitated;verbalization of feelings encouraged;emotional support provided Goal: Discharge Needs Assessment Outcome: Ongoing (Interventions Implemented as Appropriate) 01/24/15 0320 03/10/15 1334 Discharge Needs Assessment Concerns to be Addressed -- no discharge needs identified Readmission Within the Last 30 Days no previous admission in last 30 days -- Equipment Needed After Discharge none -- Current Health Anticipated Changes Related to Illness none -- Self-Care Equipment Currently Used at Home none -- Living Environment Transportation Available -- car Problem: High-Risk/Critically Ill OB Patient (Adult, Obstetrics) Goal: Signs and symptoms of listed potential problems will be absent or manageable (reference (High-Risk/Critically Ill OB Patient (Adult, Obstetrics)) CPG) Outcome: Ongoing (Interventions Implemented as Appropriate) 01/31/15 1334 High-Risk/Critically Ill OB Problems Assessed (High Risk/Critically Ill OB) all Problems Present (High Risk/Critically Ill OB) other (see comments) (brown discharge) * Plan of Care - Jessika Dent RN - 01/31/2015 6:17 AM EDT Problem: General Plan of Care Goal: Plan of Care Review Outcome: Ongoing (Interventions Implemented as Appropriate) 01/31/15 0614 Coping/Psychosocial Response Interventions Plan of Care Reviewed with patient Plan of Care Review Plan of Care Outcome Status ongoing (interventions implemented as appropriate) Progress no change OUTCOME EVALUATION NOTE: OUTCOME SUMMARY: VS stable. Pt denies bleeding, ctx, or leakage of fluid, reports + movement. Pt slept well overnight. BS WDL. NPH administered per order. PLAN MOVING FORWARD: Continue to monitor for vaginal bleeding, s/s of labor, vs, and glycemic control. INDIVIDUALIZED FALL PREVENTION: Assistance: Independent, calls appropriately for assist. Supervision: Independent Surveillance: VS, BS, purposeful rounding per unit protocol. CPG OUTCOME EVALUATION: Goal: Individualization and Mutuality Outcome: Ongoing (Interventions Implemented as Appropriate) 01/23/15 1752 Individualization Individualize the Plan of Care: Monitor for antepartum bleeding, gylcemic control Patient Specific Preferences cluster care, keep informed with plan of care Patient Specific Goals term delivery Patient Specific Interventions cluster care, monitoring bleeding, blood glucose testing as ordered Mutuality/Individual Preferences What anxieties, fears or concerns do you have about your health or care? previous loss r/t abruption, concern What questions do you have about your health or care? none at this time, encouraged patient to verbalize as arise What information would help us give you more personalized care? none noted Goal: Fall Prevention-Safe Patient Handling Outcome: Ongoing (Interventions Implemented as Appropriate) 01/29/15 1714 01/30/152014 Safety Interventions Safety Precautions/Fall Reduction lighting adjusted for task/safety;low bed;nonskid shoes/slippers when out of bed -- Musculoskeletal Interventions Activity/Level of Assistance -- bedrest with bathroom privileges Positioning -- independent Muscle Strengthening -- activity/mobility promoted;personal routines for BADL/IADL promoted Self-Care Promotion -- independence encouraged while providing assistance Lee Fall Risk History of Falling -- 0 Secondary Diagnosis -- 0 Ambulatory Aids -- 0 Intravenous Therapy/Heparin/Saline Lock -- 20 Gait/Transferring -- 0 Mental Status -- 0 Score -- 20 OTHER Lee Fall Risk -- Low Goal: Infection Control Outcome: Ongoing (Interventions Implemented as Appropriate) 01/30/152014 Safety Interventions Isolation Precautions standard precautions maintained Infection Prevention blood glucose management;environmental surveillance;hydration promoted;nutrition promoted;promote handwashing;rest/sleep promoted Coping/Psychosocial Response Interventions Counseling calming techniques promoted;emotional support provided;personal strengths integrated;understanding of situation facilitated;verbalization of feelings encouraged Goal: Discharge Needs Assessment Outcome: Ongoing (Interventions Implemented as Appropriate) 01/24/15 0320 01/28/15 1513 Discharge Needs Assessment Concerns to be Addressed -- no discharge needs identified Readmission Within the Last 30 Days no previous admission in last 30 days -- Equipment Needed After Discharge none -- Current Health Anticipated Changes Related to Illness none -- Self-Care Equipment Currently Used at Home none -- Living Environment Transportation Available car -- Problem: High-Risk/Critically Ill OB Patient (Adult, Obstetrics) Goal: Signs and symptoms of listed potential problems will be absent or manageable (reference (High-Risk/Critically Ill OB Patient (Adult, Obstetrics)) CPG) Outcome: Ongoing (Interventions Implemented as Appropriate) 01/31/15 0614 High-Risk/Critically Ill OB Problems Assessed (High Risk/Critically Ill OB) all Problems Present (High Risk/Critically Ill OB) none * Plan of Care - Micheal Broderick RN - 01/30/2015 11:43 AM EDT Problem: General Plan of Care Goal: Plan of Care Review Outcome: Ongoing (Interventions Implemented as Appropriate) 01/30/15 1136 Coping/Psychosocial Response Interventions Plan of Care Reviewed with patient Plan of Care Review Plan of Care Outcome Status ongoing (interventions implemented as appropriate) Progress no change OUTCOME EVALUATION NOTE: OUTCOME SUMMARY: Pt denies PARR, visual change, epigastric pain, edema, ctx, LOF, or bleeding. +FM. Daily NST completed. Team in to update pt on plan. 1130: Pt reports about 5 ctx in last hour. Denies bleeding or LOF. +FM. EFM placed. MD Puckett and MD Joseph notified. 1350: Pt reports ctx to be mostly gone. MD Donahue and MD Joseph aware. OK to remove EFM. PLAN MOVING FORWARD: Continue with plan INDIVIDUALIZED FALL PREVENTION: Assistance: None, pt calls appropriately Supervision: None, pt independent Surveillance: Purposeful rounding, EFM, VS CPG OUTCOME EVALUATION: Progress toward goal Goal: Individualization and Mutuality Outcome: Ongoing (Interventions Implemented as Appropriate) 01/23/15 1752 Individualization Individualize the Plan of Care: Monitor for antepartum bleeding, gylcemic control Patient Specific Preferences cluster care, keep informed with plan of care Patient Specific Goals term delivery Patient Specific Interventions cluster care, monitoring bleeding, blood glucose testing as ordered Mutuality/Individual Preferences What anxieties, fears or concerns do you have about your health or care? previous loss r/t abruption, concern What questions do you have about your health or care? none at this time, encouraged patient to verbalize as arise What information would help us give you more personalized care? none noted Goal: Fall Prevention-Safe Patient Handling Outcome: Ongoing (Interventions Implemented as Appropriate) 01/29/15 1714 01/30/15 0757 Safety Interventions Safety Precautions/Fall Reduction lighting adjusted for task/safety;low bed;nonskid shoes/slippers when out of bed -- Musculoskeletal Interventions Activity/Level of Assistance -- bedrest with bathroom privileges Positioning -- independent Muscle Strengthening -- activity/mobility promoted Self-Care Promotion -- independence encouraged while providing assistance Lee Fall Risk History of Falling -- 0 Secondary Diagnosis -- 0 Ambulatory Aids -- 0 Intravenous Therapy/Heparin/Saline Lock -- 20 Gait/Transferring -- 0 Mental Status -- 0 Score -- 20 OTHER Lee Fall Risk -- Low Goal: Infection Control Outcome: Ongoing (Interventions Implemented as Appropriate) 01/29/15202101/30/15 07501/30/15 1136 Safety Interventions Isolation Precautions -- -- standard precautions maintained Infection Prevention -- blood glucose management;environmental surveillance;hydration promoted;nutrition promoted;promote handwashing -- Coping/Psychosocial Response Interventions Counseling calming techniques promoted;emotional support provided;relaxation techniques promoted;verbalization of feelings encouraged -- -- Goal: Discharge Needs Assessment Outcome: Ongoing (Interventions Implemented as Appropriate) 01/24/1531901/28/15 1513 Discharge Needs Assessment Concerns to be Addressed -- no discharge needs identified Readmission Within the Last 30 Days no previous admission in last 30 days -- Equipment Needed After Discharge none -- Current Health Anticipated Changes Related to Illness none -- Self-Care Equipment Currently Used at Home none -- Living Environment Transportation Available car -- Problem: High-Risk/Critically Ill OB Patient (Adult, Obstetrics) Intervention: Sleep/Rest Enhancement 01/30/15756 Sleep/Rest/Relaxation Interventions Sleep/Rest Enhancement care clustered to minimize awakenings Intervention: Antepartum Infection Prevention 01/30/15756 Safety Interventions Antepartum Infection Prevention well-being monitored;hydration promoted Intervention: Hemodynamic Stabilization 01/29/15799 Cardiac Interventions Hemodynamic Stabilization HOB elevated Intervention: Bleeding Minimization 01/29/152021 Cardiac Interventions Bleeding Minimization bladder emptying facilitated Intervention: O2 Consumption Minimization 01/29/152021 Cardiac Interventions O2 Consumption Minimization sleep/rest promoted Intervention: Nutrition Promotion 01/29/152021 Nutrition Interventions Nutrition Promotion vitamin/mineral supplements provided Intervention: Fluid Management 01/29/152021 Nutrition Interventions Fluid Management fluids promoted Intervention: Metabolic/Electrolyte Imbalance Management 01/29/152021 Nutrition Interventions Metabolic/Electrolyte Imbalance Management vitamin/mineral supplements provided Intervention: Labor Prevention/Minimization 01/29/152021 Reproductive Interventions Labor Prevention/Minimization well-being monitored;voiding every 2 hours encouraged;uterine activity monitored Intervention: Skin/Mucous Membrane Protection 01/29/15799 Skin Interventions Skin/Mucous Membrane Protection absorbent garment/pad/diaper changed Intervention: Emotional Support 01/29/152021 Coping/Psychosocial Response Interventions Emotional Support safe, supportive environment facilitated;sleep/rest promoted Goal: Signs and symptoms of listed potential problems will be absent or manageable (reference (High-Risk/Critically Ill OB Patient (Adult, Obstetrics)) CPG) Outcome: Ongoing (Interventions Implemented as Appropriate) 01/30/15 1136 High-Risk/Critically Ill OB Problems Assessed (High Risk/Critically Ill OB) all Problems Present (High Risk/Critically Ill OB) labor * Plan of Care - Jessika Dent RN - 01/30/2015 3:49 AM EDT Problem: General Plan of Care Goal: Plan of Care Review Outcome: Ongoing (Interventions Implemented as Appropriate) 01/24/15 0320 01/29/152021 Coping/Psychosocial Response Interventions Plan of Care Reviewed with -- patient Plan of Care Review Plan of Care Outcome Status ongoing (interventions implemented as appropriate) -- Progress no change -- OUTCOME EVALUATION NOTE: OUTCOME SUMMARY: VS stable. Pt denies bleeding or leakage of fluid this shift, reports good movement. Insulin administered per protocol. Pt slept through night. PLAN MOVING FORWARD: Continue to monitor VS and for bleeding. Daily NST to monitor well being. INDIVIDUALIZED FALL PREVENTION: Assistance: Independent, calls appropriately for assist. Supervision: Independent Surveillance: VS, purposeful rounding per unit protocol. CPG OUTCOME EVALUATION: Goal: Individualization and Mutuality Outcome: Ongoing (Interventions Implemented as Appropriate) 01/23/15 1752 Individualization Individualize the Plan of Care: Monitor for antepartum bleeding, gylcemic control Patient Specific Preferences cluster care, keep informed with plan of care Patient Specific Goals term delivery Patient Specific Interventions cluster care, monitoring bleeding, blood glucose testing as ordered Mutuality/Individual Preferences What anxieties, fears or concerns do you have about your health or care? previous loss r/t abruption, concern What questions do you have about your health or care? none at this time, encouraged patient to verbalize as arise What information would help us give you more personalized care? none noted Goal: Fall Prevention-Safe Patient Handling Outcome: Ongoing (Interventions Implemented as Appropriate) 01/29/15 1714 01/29/152021 Safety Interventions Safety Precautions/Fall Reduction lighting adjusted for task/safety;low bed;nonskid shoes/slippers when out of bed -- Musculoskeletal Interventions Activity/Level of Assistance -- bedrest with bathroom privileges Positioning -- independent (pt repositions self at least q2hr) Muscle Strengthening -- activity/mobility promoted;mobility in bed promoted;personal routines for BADL/IADL promoted Self-Care Promotion -- independence encouraged while providing assistance;personal routines for BADL/IADL promoted Lee Fall Risk History of Falling -- 0 Secondary Diagnosis -- 0 Ambulatory Aids -- 0 Intravenous Therapy/Heparin/Saline Lock -- 20 Gait/Transferring -- 0 Mental Status -- 0 Score -- 20 OTHER Lee Fall Risk -- Low Goal: Infection Control Outcome: Ongoing (Interventions Implemented as Appropriate) 01/29/152021 Safety Interventions Isolation Precautions standard precautions maintained Infection Prevention blood glucose management;hydration promoted;nutrition promoted;promote handwashing;rest/sleep promoted Coping/Psychosocial Response Interventions Counseling calming techniques promoted;emotional support provided;relaxation techniques promoted;verbalization of feelings encouraged Goal: Discharge Needs Assessment Outcome: Ongoing (Interventions Implemented as Appropriate) 01/24/15 03201/28/15 1513 Discharge Needs Assessment Concerns to be Addressed -- no discharge needs identified Readmission Within the Last 30 Days no previous admission in last 30 days -- Equipment Needed After Discharge none -- Current Health Anticipated Changes Related to Illness none -- Self-Care Equipment Currently Used at Home none -- Living Environment Transportation Available car -- Problem: High-Risk/Critically Ill OB Patient (Adult, Obstetrics) Goal: Signs and symptoms of listed potential problems will be absent or manageable (reference (High-Risk/Critically Ill OB Patient (Adult, Obstetrics)) CPG) Outcome: Ongoing (Interventions Implemented as Appropriate) 01/30/15 0345 High-Risk/Critically Ill OB Problems Assessed (High Risk/Critically Ill OB) all Problems Present (High Risk/Critically Ill OB) none * Plan of Care - Janna Oliva RN - 01/29/2015 5:19 PM EDT Problem: General Plan of Care Goal: Plan of Care Review Outcome: Ongoing (Interventions Implemented as Appropriate) 01/24/15 0320 01/29/15 0800 Coping/Psychosocial Response Interventions Plan of Care Reviewed with -- patient Plan of Care Review Plan of Care Outcome Status ongoing (interventions implemented as appropriate) -- Progress no change -- OUTCOME EVALUATION NOTE: OUTCOME SUMMARY: VSS. Post prandial blood sugars slightly elevated, but remain lower than parameters for treatment. Denies CTX or LOF. Reports active movement. Scant pink VB on toilet paper when wipes. Visited with family today. PLAN MOVING FORWARD: Continue to monitor VB and blood glucose. Provide emotional support. INDIVIDUALIZED FALL PREVENTION: Assistance: Self, will call for assistance PRN Supervision: self Surveillance: Purposeful rounding CPG OUTCOME EVALUATION: Goal: Individualization and Mutuality Outcome: Ongoing (Interventions Implemented as Appropriate) 01/23/15 1752 Individualization Individualize the Plan of Care: Monitor for antepartum bleeding, gylcemic control Patient Specific Preferences cluster care, keep informed with plan of care Patient Specific Goals term delivery Patient Specific Interventions cluster care, monitoring bleeding, blood glucose testing as ordered Mutuality/Individual Preferences What anxieties, fears or concerns do you have about your health or care? previous loss r/t abruption, concern What questions do you have about your health or care? none at this time, encouraged patient to verbalize as arise What information would help us give you more personalized care? none noted Goal: Fall Prevention-Safe Patient Handling Outcome: Ongoing (Interventions Implemented as Appropriate) 01/27/15199901/29/15 0801/29/15 1714 Safety Interventions Safety Precautions/Fall Reduction -- -- lighting adjusted for task/safety;low bed;nonskid shoes/slippers when out of bed Musculoskeletal Interventions Activity/Level of Assistance -- bedrest with bathroom privileges -- Positioning -- independent -- Muscle Strengthening -- mobility in bed promoted -- Self-Care Promotion -- personal/BADL objects within reach;personal routines for BADL/IADL promoted -- Lee Fall Risk History of Falling -- 0 -- Secondary Diagnosis -- 0 -- Ambulatory Aids -- 0 -- Intravenous Therapy/Heparin/Saline Lock -- 20 -- Gait/Transferring -- 0 -- Mental Status -- 0 -- Score -- 20 -- OTHER Lee Fall Risk Low -- -- Goal: Infection Control Outcome: Ongoing (Interventions Implemented as Appropriate) 01/29/15 08 Safety Interventions Isolation Precautions standard precautions maintained Infection Prevention blood glucose management;hydration promoted;nutrition promoted;promote handwashing Coping/Psychosocial Response Interventions Counseling verbalization of feelings encouraged;emotional support provided Goal: Discharge Needs Assessment Outcome: Ongoing (Interventions Implemented as Appropriate) 01/24/1531901/28/15 1513 Discharge Needs Assessment Concerns to be Addressed -- no discharge needs identified Readmission Within the Last 30 Days no previous admission in last 30 days -- Equipment Needed After Discharge none -- Current Health Anticipated Changes Related to Illness none -- Self-Care Equipment Currently Used at Home none -- Living Environment Transportation Available car -- Problem: High-Risk/Critically Ill OB Patient (Adult, Obstetrics) Goal: Signs and symptoms of listed potential problems will be absent or manageable (reference (High-Risk/Critically Ill OB Patient (Adult, Obstetrics)) CPG) Outcome: Ongoing (Interventions Implemented as Appropriate) 01/28/15 151 High-Risk/Critically Ill OB Problems Assessed (High Risk/Critically Ill OB) all Problems Present (High Risk/Critically Ill OB) other (see comments) (scant vaginal bleeding) * Plan of Care - Lynette Agarwal RN - 01/29/2015 12:47 AM EST Problem: General Plan of Care Goal: Plan of Care Review Outcome: Ongoing (Interventions Implemented as Appropriate) 01/24/1531901/28/15 1933 Coping/Psychosocial Response Interventions Plan of Care Reviewed with -- patient Plan of Care Review Plan of Care Outcome Status ongoing (interventions implemented as appropriate) -- Progress no change -- OUTCOME EVALUATION NOTE: OUTCOME SUMMARY: VSS, pt denies bleeding, contractions, lof, +FM per patient, denies complaints at this time, amenable to plan of care PLAN MOVING FORWARD: Continue to monitor bleeding and glucose INDIVIDUALIZED FALL PREVENTION: Assistance: independent Supervision: none Surveillance: purposeful rounding CPG OUTCOME EVALUATION: Goal: Individualization and Mutuality Outcome: Ongoing (Interventions Implemented as Appropriate) 01/23/15 1752 Individualization Individualize the Plan of Care: Monitor for antepartum bleeding, gylcemic control Patient Specific Preferences cluster care, keep informed with plan of care Patient Specific Goals term delivery Patient Specific Interventions cluster care, monitoring bleeding, blood glucose testing as ordered Mutuality/Individual Preferences What anxieties, fears or concerns do you have about your health or care? previous loss r/t abruption, concern What questions do you have about your health or care? none at this time, encouraged patient to verbalize as arise What information would help us give you more personalized care? none noted Goal: Fall Prevention-Safe Patient Handling Outcome: Ongoing (Interventions Implemented as Appropriate) 01/24/1531901/27/15199901/28/151932 Safety Interventions Safety Precautions/Fall Reduction low bed;nonskid shoes/slippers when out of bed -- -- Musculoskeletal Interventions Activity/Level of Assistance -- -- bedrest with bathroom privileges Positioning -- -- independent Muscle Strengthening -- -- activity/mobility promoted Self-Care Promotion -- -- toileting offered Lee Fall Risk History of Falling -- -- 0 Secondary Diagnosis -- -- 0 Ambulatory Aids -- -- 0 Intravenous Therapy/Heparin/Saline Lock -- -- 20 Gait/Transferring -- -- 0 Mental Status -- -- 0 Score -- -- 20 OTHER Lee Fall Risk -- Low -- Goal: Infection Control Outcome: Ongoing (Interventions Implemented as Appropriate) 01/28/151932 Safety Interventions Isolation Precautions standard precautions maintained Infection Prevention blood glucose management Coping/Psychosocial Response Interventions Counseling verbalization of feelings encouraged Goal: Discharge Needs Assessment Outcome: Ongoing (Interventions Implemented as Appropriate) 01/24/1531901/28/151512 Discharge Needs Assessment Concerns to be Addressed -- no discharge needs identified Readmission Within the Last 30 Days no previous admission in last 30 days -- Equipment Needed After Discharge none -- Current Health Anticipated Changes Related to Illness none -- Self-Care Equipment Currently Used at Home none -- Living Environment Transportation Available car -- Problem: High-Risk/Critically Ill OB Patient (Adult, Obstetrics) Goal: Signs and symptoms of listed potential problems will be absent or manageable (reference (High-Risk/Critically Ill OB Patient (Adult, Obstetrics)) CPG) Outcome: Ongoing (Interventions Implemented as Appropriate) 01/28/151512 High-Risk/Critically Ill OB Problems Assessed (High Risk/Critically Ill OB) all Problems Present (High Risk/Critically Ill OB) other (see comments) (scant vaginal bleeding) * Plan of Care - Janna Oliva RN - 01/28/2015 3:20 PM EST Problem: General Plan of Care Goal: Plan of Care Review Outcome: Ongoing (Interventions Implemented as Appropriate) 01/24/1531901/28/15 0800 Coping/Psychosocial Response Interventions Plan of Care Reviewed with -- patient Plan of Care Review Plan of Care Outcome Status ongoing (interventions implemented as appropriate) -- Progress no change -- OUTCOME EVALUATION NOTE: OUTCOME SUMMARY: VSS. No CTX or LOF today. Baby very active. Scant pink vaginal bleeding this afternoon. Sliding scale to treat elevated post prandial blood sugars. PLAN MOVING FORWARD: Continue to monitor per protocols. Treat blood sugars as ordered. Provide emotional support. INDIVIDUALIZED FALL PREVENTION: Assistance: Independent, will call for assistance PRN Supervision: independent Surveillance: Purposeful rounding CPG OUTCOME EVALUATION: Goal: Individualization and Mutuality Outcome: Ongoing (Interventions Implemented as Appropriate) 01/23/15 1752 Individualization Individualize the Plan of Care: Monitor for antepartum bleeding, gylcemic control Patient Specific Preferences cluster care, keep informed with plan of care Patient Specific Goals term delivery Patient Specific Interventions cluster care, monitoring bleeding, blood glucose testing as ordered Mutuality/Individual Preferences What anxieties, fears or concerns do you have about your health or care? previous loss r/t abruption, concern What questions do you have about your health or care? none at this time, encouraged patient to verbalize as arise What information would help us give you more personalized care? none noted Goal: Fall Prevention-Safe Patient Handling Outcome: Ongoing (Interventions Implemented as Appropriate) 01/24/1531901/26/15 2338 01/27/151999 Safety Interventions Safety Precautions/Fall Reduction low bed;nonskid shoes/slippers when out of bed -- -- Musculoskeletal Interventions Activity/Level of Assistance -- -- -- Positioning -- -- -- Muscle Strengthening -- -- -- Self-Care Promotion -- toileting offered;independence encouraged while providing assistance -- Lee Fall Risk History of Falling -- -- -- Secondary Diagnosis -- -- -- Ambulatory Aids -- -- -- Intravenous Therapy/Heparin/Saline Lock -- -- -- Gait/Transferring -- -- -- Mental Status -- -- -- Score -- -- -- OTHER Lee Fall Risk -- -- Low 01/28/15 08 Safety Interventions Safety Precautions/Fall Reduction -- Musculoskeletal Interventions Activity/Level of Assistance bedrest with bathroom privileges Positioning independent Muscle Strengthening activity/mobility promoted Self-Care Promotion -- Lee Fall Risk History of Falling 0 Secondary Diagnosis 15 Ambulatory Aids 0 Intravenous Therapy/Heparin/Saline Lock 20 Gait/Transferring 0 Mental Status 0 Score 35 OTHER Lee Fall Risk -- Goal: Infection Control Outcome: Ongoing (Interventions Implemented as Appropriate) 01/28/15 08 Safety Interventions Isolation Precautions standard precautions maintained Infection Prevention blood glucose management;promote handwashing;rest/sleep promoted;nutrition promoted;hydration promoted Coping/Psychosocial Response Interventions Counseling verbalization of feelings encouraged Goal: Discharge Needs Assessment Outcome: Ongoing (Interventions Implemented as Appropriate) 01/24/1531901/28/151512 Discharge Needs Assessment Concerns to be Addressed -- no discharge needs identified Readmission Within the Last 30 Days no previous admission in last 30 days -- Equipment Needed After Discharge none -- Current Health Anticipated Changes Related to Illness none -- Self-Care Equipment Currently Used at Home none -- Living Environment Transportation Available car -- Problem: High-Risk/Critically Ill OB Patient (Adult, Obstetrics) Goal: Signs and symptoms of listed potential problems will be absent or manageable (reference (High-Risk/Critically Ill OB Patient (Adult, Obstetrics)) CPG) Outcome: Ongoing (Interventions Implemented as Appropriate) 01/28/15 151 High-Risk/Critically Ill OB Problems Assessed (High Risk/Critically Ill OB) all Problems Present (High Risk/Critically Ill OB) other (see comments) (scant vaginal bleeding) * Plan of Care - Ilana Martinez RN - 01/28/2015 3:34 AM EST Problem: General Plan of Care Goal: Plan of Care Review Outcome: Ongoing (Interventions Implemented as Appropriate) 01/24/1531901/27/151999 Coping/Psychosocial Response Interventions Plan of Care Reviewed with -- patient Plan of Care Review Plan of Care Outcome Status ongoing (interventions implemented as appropriate) -- Progress no change -- OUTCOME EVALUATION NOTE: OUTCOME SUMMARY: Pt feeling very tired tonight, denies any bleeding, leaking of fluid, of contractions tonight, magnesium for neuro protection complete, reports active fetus, presents to be resting well, vss. PLAN MOVING FORWARD: Continue to monitor for bleeding, PTL and glycemic control. INDIVIDUALIZED FALL PREVENTION: Assistance: independent Supervision: call light in reach for additional assist Surveillance: Purposeful rounding, daily NST, vital signs per protocol CPG OUTCOME EVALUATION: Goal: Individualization and Mutuality Outcome: Ongoing (Interventions Implemented as Appropriate) 01/23/15 1752 Individualization Individualize the Plan of Care: Monitor for antepartum bleeding, gylcemic control Patient Specific Preferences cluster care, keep informed with plan of care Patient Specific Goals term delivery Patient Specific Interventions cluster care, monitoring bleeding, blood glucose testing as ordered Mutuality/Individual Preferences What anxieties, fears or concerns do you have about your health or care? previous loss r/t abruption, concern What questions do you have about your health or care? none at this time, encouraged patient to verbalize as arise What information would help us give you more personalized care? none noted Goal: Fall Prevention-Safe Patient Handling Outcome: Ongoing (Interventions Implemented as Appropriate) 01/24/15 0320 01/26/15 0845 01/26/15 0498 Safety Interventions Safety Precautions/Fall Reduction low bed;nonskid shoes/slippers when out of bed -- -- Musculoskeletal Interventions Activity/Level of Assistance -- -- -- Positioning -- -- -- Muscle Strengthening -- activity/mobility promoted;mobility in bed promoted -- Self-Care Promotion -- -- toileting offered;independence encouraged while providing assistance Lee Fall Risk History of Falling -- -- -- Secondary Diagnosis -- -- -- Ambulatory Aids -- -- -- Intravenous Therapy/Heparin/Saline Lock -- -- -- Gait/Transferring -- -- -- Mental Status -- -- -- Score -- -- -- OTHER Lee Fall Risk -- -- -- 01/27/151999 Safety Interventions Safety Precautions/Fall Reduction -- Musculoskeletal Interventions Activity/Level of Assistance bedrest with bathroom privileges;with stand by assist Positioning independent Muscle Strengthening -- Self-Care Promotion -- Lee Fall Risk History of Falling 0 Secondary Diagnosis 0 Ambulatory Aids 0 Intravenous Therapy/Heparin/Saline Lock 20 Gait/Transferring 0 Mental Status 0 Score 20 OTHER Lee Fall Risk Low Goal: Infection Control Outcome: Ongoing (Interventions Implemented as Appropriate) 01/27/151999 Safety Interventions Isolation Precautions standard precautions maintained Infection Prevention promote handwashing Coping/Psychosocial Response Interventions Counseling verbalization of feelings encouraged Goal: Discharge Needs Assessment Outcome: Ongoing (Interventions Implemented as Appropriate) 01/24/15 0320 Discharge Needs Assessment Concerns to be Addressed no discharge needs identified Readmission Within the Last 30 Days no previous admission in last 30 days Equipment Needed After Discharge none Current Health Anticipated Changes Related to Illness none Self-Care Equipment Currently Used at Home none Living Environment Transportation Available car Problem: High-Risk/Critically Ill OB Patient (Adult, Obstetrics) Goal: Signs and symptoms of listed potential problems will be absent or manageable (reference (High-Risk/Critically Ill OB Patient (Adult, Obstetrics)) CPG) Outcome: Ongoing (Interventions Implemented as Appropriate) 01/27/15 0441 01/28/15 0325 High-Risk/Critically Ill OB Problems Assessed (High Risk/Critically Ill OB) all -- Problems Present (High Risk/Critically Ill OB) -- none * Plan of Care - Christianne Sandoval RN - 01/27/2015 5:06 PM EST Problem: General Plan of Care Goal: Plan of Care Review Outcome: Ongoing (Interventions Implemented as Appropriate) 01/24/15 0320 01/26/15 2338 Coping/Psychosocial Response Interventions Plan of Care Reviewed with -- patient Plan of Care Review Plan of Care Outcome Status ongoing (interventions implemented as appropriate) -- Progress no change -- Goal: Individualization and Mutuality Outcome: Ongoing (Interventions Implemented as Appropriate) 01/23/15 1752 Individualization Individualize the Plan of Care: Monitor for antepartum bleeding, gylcemic control Patient Specific Preferences cluster care, keep informed with plan of care Patient Specific Goals term delivery Patient Specific Interventions cluster care, monitoring bleeding, blood glucose testing as ordered Mutuality/Individual Preferences What anxieties, fears or concerns do you have about your health or care? previous loss r/t abruption, concern What questions do you have about your health or care? none at this time, encouraged patient to verbalize as arise What information would help us give you more personalized care? none noted Goal: Fall Prevention-Safe Patient Handling Outcome: Ongoing (Interventions Implemented as Appropriate) 01/24/15 0320 01/26/15 0845 01/26/152337 Safety Interventions Safety Precautions/Fall Reduction low bed;nonskid shoes/slippers when out of bed -- -- Musculoskeletal Interventions Activity/Level of Assistance -- -- up ad zeus;independently Positioning -- -- independent Muscle Strengthening -- activity/mobility promoted;mobility in bed promoted -- Self-Care Promotion -- -- toileting offered;independence encouraged while providing assistance Lee Fall Risk History of Falling -- -- 0 Secondary Diagnosis -- -- 15 Ambulatory Aids -- -- 0 Intravenous Therapy/Heparin/Saline Lock -- -- 20 Gait/Transferring -- -- 0 Mental Status -- -- 0 Score -- -- 35 OTHER Lee Fall Risk -- -- Med Goal: Infection Control Outcome: Ongoing (Interventions Implemented as Appropriate) 01/27/151658 Safety Interventions Isolation Precautions standard precautions maintained Infection Prevention promote handwashing;rest/sleep promoted Coping/Psychosocial Response Interventions Counseling verbalization of feelings encouraged Goal: Discharge Needs Assessment Outcome: Ongoing (Interventions Implemented as Appropriate) 01/24/15319 Discharge Needs Assessment Concerns to be Addressed no discharge needs identified Readmission Within the Last 30 Days no previous admission in last 30 days Equipment Needed After Discharge none Current Health Anticipated Changes Related to Illness none Self-Care Equipment Currently Used at Home none Living Environment Transportation Available car Problem: High-Risk/Critically Ill OB Patient (Adult, Obstetrics) Intervention: Sleep/Rest Enhancement 01/26/152337 Sleep/Rest/Relaxation Interventions Sleep/Rest Enhancement calming techniques promoted;care clustered to minimize awakenings;bedtime/naptime/waketime consistency promoted;environment adjusted;sleep/rest pattern promoted;relaxation techniques promoted Intervention: Antepartum Infection Prevention 01/27/151658 Safety Interventions Antepartum Infection Prevention well-being monitored Intervention: Nutrition Promotion 01/27/151658 Nutrition Interventions Nutrition Promotion vitamin/mineral supplements provided Intervention: Fluid Management 01/27/151658 Nutrition Interventions Fluid Management fluids promoted Intervention: Emotional Support 01/27/151658 Coping/Psychosocial Response Interventions Emotional Support safe, supportive environment facilitated;sleep/rest promoted Comments: OUTCOME EVALUATION NOTE: OUTCOME SUMMARY: No vaginal bleeding today. Patient denied contractions, non palpable, and none picked up on EFM. NST completed. Blood glucose remained within normal range. Magnesium infusing at 1 gm/hr. Reflexes absent; blood chemistries drawn. PLAN MOVING FORWARD: Continue to monitor for contractions, vaginal bleeding. Magnesium will be completed this evening. INDIVIDUALIZED FALL PREVENTION: Assistance: By staff as needed Supervision: none Surveillance: Purposeful rounding CPG OUTCOME EVALUATION: * Plan of Care - Tiffanie Rader RN - 01/27/2015 4:42 AM EST Problem: General Plan of Care Goal: Plan of Care Review Outcome: Ongoing (Interventions Implemented as Appropriate) 01/24/1531901/26/15 233 Coping/Psychosocial Response Interventions Plan of Care Reviewed with -- patient Plan of Care Review Plan of Care Outcome Status ongoing (interventions implemented as appropriate) -- Progress no change -- Goal: Individualization and Mutuality Outcome: Ongoing (Interventions Implemented as Appropriate) 01/23/15 175 Individualization Individualize the Plan of Care: Monitor for antepartum bleeding, gylcemic control Patient Specific Preferences cluster care, keep informed with plan of care Patient Specific Goals term delivery Patient Specific Interventions cluster care, monitoring bleeding, blood glucose testing as ordered Mutuality/Individual Preferences What anxieties, fears or concerns do you have about your health or care? previous loss r/t abruption, concern What questions do you have about your health or care? none at this time, encouraged patient to verbalize as arise What information would help us give you more personalized care? none noted Goal: Fall Prevention-Safe Patient Handling Outcome: Ongoing (Interventions Implemented as Appropriate) 01/24/1531901/26/15 0845 01/26/15 1278 Safety Interventions Safety Precautions/Fall Reduction low bed;nonskid shoes/slippers when out of bed -- -- Musculoskeletal Interventions Activity/Level of Assistance -- -- up ad zeus;independently Positioning -- -- independent Muscle Strengthening -- activity/mobility promoted;mobility in bed promoted -- Self-Care Promotion -- -- toileting offered;independence encouraged while providing assistance Lee Fall Risk History of Falling -- -- 0 Secondary Diagnosis -- -- 15 Ambulatory Aids -- -- 0 Intravenous Therapy/Heparin/Saline Lock -- -- 20 Gait/Transferring -- -- 0 Mental Status -- -- 0 Score -- -- 35 OTHER Lee Fall Risk -- -- Med Goal: Infection Control Outcome: Ongoing (Interventions Implemented as Appropriate) 01/26/15 2338 Safety Interventions Isolation Precautions standard precautions maintained Infection Prevention rest/sleep promoted;promote handwashing;nutrition promoted;hydration promoted;environmental surveillance Coping/Psychosocial Response Interventions Counseling calming techniques promoted;emotional support provided Goal: Discharge Needs Assessment Outcome: Ongoing (Interventions Implemented as Appropriate) 01/24/15 0320 Discharge Needs Assessment Concerns to be Addressed no discharge needs identified Readmission Within the Last 30 Days no previous admission in last 30 days Equipment Needed After Discharge none Current Health Anticipated Changes Related to Illness none Self-Care Equipment Currently Used at Home none Living Environment Transportation Available car Problem: High-Risk/Critically Ill OB Patient (Adult, Obstetrics) Goal: Signs and symptoms of listed potential problems will be absent or manageable (reference (High-Risk/Critically Ill OB Patient (Adult, Obstetrics)) CPG) Outcome: Ongoing (Interventions Implemented as Appropriate) 01/27/15 0441 High-Risk/Critically Ill OB Problems Assessed (High Risk/Critically Ill OB) all Problems Present (High Risk/Critically Ill OB) acute pain Comments: OUTCOME EVALUATION NOTE: OUTCOME SUMMARY: Martinez is a 29 year old with history of bleeding, GDM, and C/S x2. No bleeding this shift. Patient remains 0 cm dilated, 0% effaced, and high -4 station throughout shift. Pain and discomfort progressively getting worse, now 7/10 with contractions and in lower back. Patient reports anxiety and inability to rest/sleep. one hour drive away. Magnesium started on this shift, patient tolerating well. Ambien given to help sleep. PLAN MOVING FORWARD: Monitor for bleeding and labor. Continuous EFM. Continue to offer pain and comfort interventions. INDIVIDUALIZED FALL PREVENTION: Assistance: Independent- follow to BR with IV pole at times Supervision: Call light within reach. Patient encouraged to ring for assistance. Surveillance: Purposeful rounding completed. CPG OUTCOME EVALUATION: * Plan of Care - Camila Gomez RN - 01/26/2015 10:54 AM EST 1920: Pt reports scant red blood when wiping when she urinates. MD Rivera informed Per pt to be put on the monitor. EFM applied. Problem: General Plan of Care Goal: Plan of Care Review Outcome: Ongoing (Interventions Implemented as Appropriate) 01/24/1531901/26/15 0845 Coping/Psychosocial Response Interventions Plan of Care Reviewed with -- patient Plan of Care Review Plan of Care Outcome Status ongoing (interventions implemented as appropriate) -- Progress no change -- OUTCOME EVALUATION NOTE: OUTCOME SUMMARY: Pt OOB independently. Ambulating in her room. BG fasting and 1hr PP each meal. Pt denies vision changes, h/a, and abd pain. Pt denies leaking vaginal fluid and bleeding. PLAN MOVING FORWARD: Glycemic control. Monitor for bleeding. Daily NST INDIVIDUALIZED FALL PREVENTION: Assistance: Call fry in reach Supervision: hourly rounding Surveillance: Purposeful rounding CPG OUTCOME EVALUATION: Goal: Individualization and Mutuality Outcome: Ongoing (Interventions Implemented as Appropriate) 01/23/15 175 Individualization Individualize the Plan of Care: Monitor for antepartum bleeding, gylcemic control Patient Specific Preferences cluster care, keep informed with plan of care Patient Specific Goals term delivery Patient Specific Interventions cluster care, monitoring bleeding, blood glucose testing as ordered Mutuality/Individual Preferences What anxieties, fears or concerns do you have about your health or care? previous loss r/t abruption, concern What questions do you have about your health or care? none at this time, encouraged patient to verbalize as arise What information would help us give you more personalized care? none noted Goal: Fall Prevention-Safe Patient Handling Outcome: Ongoing (Interventions Implemented as Appropriate) 01/24/1531901/26/15 0845 Safety Interventions Safety Precautions/Fall Reduction low bed;nonskid shoes/slippers when out of bed -- Musculoskeletal Interventions Activity/Level of Assistance -- up in room Positioning -- independent Muscle Strengthening -- activity/mobility promoted;mobility in bed promoted Self-Care Promotion -- independence encouraged while providing assistance Lee Fall Risk History of Falling -- 0 Secondary Diagnosis -- 15 Ambulatory Aids -- 0 Intravenous Therapy/Heparin/Saline Lock -- 20 Gait/Transferring -- 0 Mental Status -- 0 Score -- 35 OTHER Lee Fall Risk -- Low Goal: Infection Control Outcome: Ongoing (Interventions Implemented as Appropriate) 01/26/15 0845 Safety Interventions Isolation Precautions standard precautions maintained Infection Prevention rest/sleep promoted;promote handwashing;nutrition promoted;hydration promoted;environmental surveillance Coping/Psychosocial Response Interventions Counseling calming techniques promoted;emotional support provided;reassurance provided;relaxation techniques promoted Goal: Discharge Needs Assessment Outcome: Ongoing (Interventions Implemented as Appropriate) 01/24/15 0320 Discharge Needs Assessment Concerns to be Addressed no discharge needs identified Readmission Within the Last 30 Days no previous admission in last 30 days Equipment Needed After Discharge none Current Health Anticipated Changes Related to Illness none Self-Care Equipment Currently Used at Home none Living Environment Transportation Available car Problem: High-Risk/Critically Ill OB Patient (Adult, Obstetrics) Goal: Signs and symptoms of listed potential problems will be absent or manageable (reference (High-Risk/Critically Ill OB Patient (Adult, Obstetrics)) CPG) Outcome: Ongoing (Interventions Implemented as Appropriate) 01/26/15 1050 High-Risk/Critically Ill OB Problems Assessed (High Risk/Critically Ill OB) all Problems Present (High Risk/Critically Ill OB) none * Plan of Care - Ilana Martinez RN - 01/26/2015 3:47 AM EST Problem: General Plan of Care Goal: Plan of Care Review Outcome: Ongoing (Interventions Implemented as Appropriate) 01/24/15 03201/25/152037 Coping/Psychosocial Response Interventions Plan of Care Reviewed with -- patient Plan of Care Review Plan of Care Outcome Status ongoing (interventions implemented as appropriate) -- Progress no change -- OUTCOME EVALUATION NOTE: OUTCOME SUMMARY: Pt independent with self care, denies any bleeding, leaking of fluids or contractions tonight, blood sugars wnl, vss. PLAN MOVING FORWARD: Continue to monitor bleeding INDIVIDUALIZED FALL PREVENTION: Assistance: independent Supervision: call light in reach for additional assist Surveillance: Purposeful rounding, vital signs per protocol, daily NST CPG OUTCOME EVALUATION: Goal: Individualization and Mutuality Outcome: Ongoing (Interventions Implemented as Appropriate) 01/23/15 1752 Individualization Individualize the Plan of Care: Monitor for antepartum bleeding, gylcemic control Patient Specific Preferences cluster care, keep informed with plan of care Patient Specific Goals term delivery Patient Specific Interventions cluster care, monitoring bleeding, blood glucose testing as ordered Mutuality/Individual Preferences What anxieties, fears or concerns do you have about your health or care? previous loss r/t abruption, concern What questions do you have about your health or care? none at this time, encouraged patient to verbalize as arise What information would help us give you more personalized care? none noted Goal: Fall Prevention-Safe Patient Handling Outcome: Ongoing (Interventions Implemented as Appropriate) 01/24/1531901/24/15 0801/25/15829 Safety Interventions Safety Precautions/Fall Reduction low bed;nonskid shoes/slippers when out of bed -- -- Musculoskeletal Interventions Activity/Level of Assistance -- -- -- Positioning -- -- HOB up 60-90 degrees Muscle Strengthening -- -- activity/mobility promoted Self-Care Promotion -- personal/BADL objects within reach;personal routines for BADL/IADL promoted -- Lee Fall Risk History of Falling -- -- -- Secondary Diagnosis -- -- -- Ambulatory Aids -- -- -- Intravenous Therapy/Heparin/Saline Lock -- -- -- Gait/Transferring -- -- -- Mental Status -- -- -- Score -- -- -- OTHER Lee Fall Risk -- -- -- 01/25/152037 Safety Interventions Safety Precautions/Fall Reduction -- Musculoskeletal Interventions Activity/Level of Assistance bedrest with bathroom privileges;independently Positioning -- Muscle Strengthening -- Self-Care Promotion -- Lee Fall Risk History of Falling 0 Secondary Diagnosis 0 Ambulatory Aids 0 Intravenous Therapy/Heparin/Saline Lock 20 Gait/Transferring 0 Mental Status 0 Score 20 OTHER Lee Fall Risk Low Goal: Infection Control Outcome: Ongoing (Interventions Implemented as Appropriate) 01/24/15201901/25/152037 Safety Interventions Isolation Precautions -- standard precautions maintained Infection Prevention -- promote handwashing Coping/Psychosocial Response Interventions Counseling calming techniques promoted -- Goal: Discharge Needs Assessment Outcome: Ongoing (Interventions Implemented as Appropriate) 01/24/15319 Discharge Needs Assessment Concerns to be Addressed no discharge needs identified Readmission Within the Last 30 Days no previous admission in last 30 days Equipment Needed After Discharge none Current Health Anticipated Changes Related to Illness none Self-Care Equipment Currently Used at Home none Living Environment Transportation Available car Problem: High-Risk/Critically Ill OB Patient (Adult, Obstetrics) Goal: Signs and symptoms of listed potential problems will be absent or manageable (reference (High-Risk/Critically Ill OB Patient (Adult, Obstetrics)) CPG) Outcome: Ongoing (Interventions Implemented as Appropriate) 01/26/15 0333 High-Risk/Critically Ill OB Problems Assessed (High Risk/Critically Ill OB) all Problems Present (High Risk/Critically Ill OB) none * Plan of Care - Nicol Guerra RN - 01/25/2015 8:11 PM EST Problem: General Plan of Care Goal: Plan of Care Review Outcome: Ongoing (Interventions Implemented as Appropriate) 01/24/1531901/25/15 0830 Coping/Psychosocial Response Interventions Plan of Care Reviewed with -- patient Plan of Care Review Plan of Care Outcome Status ongoing (interventions implemented as appropriate) -- Progress no change -- OUTCOME EVALUATION NOTE: OUTCOME SUMMARY:Pt has had no further bleeding over shift, increased emotional support given, bloodsugars remain in good to fair control with lunch 1 hr pp slightly elevated, pt given tdap vaccine this shift PLAN MOVING FORWARD:continue to monitor for bleeding INDIVIDUALIZED FALL PREVENTION: call light in reach Assistance: independent Supervision:call light in reach Surveillance: hourly rounding CPG OUTCOME EVALUATION: Goal: Individualization and Mutuality Outcome: Ongoing (Interventions Implemented as Appropriate) 01/23/15 1752 Individualization Individualize the Plan of Care: Monitor for antepartum bleeding, gylcemic control Patient Specific Preferences cluster care, keep informed with plan of care Patient Specific Goals term delivery Patient Specific Interventions cluster care, monitoring bleeding, blood glucose testing as ordered Mutuality/Individual Preferences What anxieties, fears or concerns do you have about your health or care? previous loss r/t abruption, concern What questions do you have about your health or care? none at this time, encouraged patient to verbalize as arise What information would help us give you more personalized care? none noted Goal: Fall Prevention-Safe Patient Handling Outcome: Ongoing (Interventions Implemented as Appropriate) 01/24/1531901/24/15 0817 01/25/15 0830 Safety Interventions Safety Precautions/Fall Reduction low bed;nonskid shoes/slippers when out of bed -- -- Musculoskeletal Interventions Activity/Level of Assistance -- -- up in room Positioning -- -- HOB up 60-90 degrees Muscle Strengthening -- -- activity/mobility promoted Self-Care Promotion -- personal/BADL objects within reach;personal routines for BADL/IADL promoted -- Lee Fall Risk History of Falling -- -- 0 Secondary Diagnosis -- -- 0 Ambulatory Aids -- -- 0 Intravenous Therapy/Heparin/Saline Lock -- -- 20 Gait/Transferring -- -- 0 Mental Status -- -- 0 Score -- -- 20 OTHER Lee Fall Risk -- -- Low Goal: Infection Control Outcome: Ongoing (Interventions Implemented as Appropriate) 01/24/152019 Safety Interventions Isolation Precautions standard precautions maintained Infection Prevention rest/sleep promoted Coping/Psychosocial Response Interventions Counseling calming techniques promoted Goal: Discharge Needs Assessment Outcome: Ongoing (Interventions Implemented as Appropriate) 01/24/15319 Discharge Needs Assessment Concerns to be Addressed no discharge needs identified Readmission Within the Last 30 Days no previous admission in last 30 days Equipment Needed After Discharge none Current Health Anticipated Changes Related to Illness none Self-Care Equipment Currently Used at Home none Living Environment Transportation Available car Problem: High-Risk/Critically Ill OB Patient (Adult, Obstetrics) Goal: Signs and symptoms of listed potential problems will be absent or manageable (reference (High-Risk/Critically Ill OB Patient (Adult, Obstetrics)) CPG) 01/24/15319 High-Risk/Critically Ill OB Problems Assessed (High Risk/Critically Ill OB) all Problems Present (High Risk/Critically Ill OB) none * Plan of Care - Rochelle Fatima RN - 01/25/2015 2:47 AM EST Problem: General Plan of Care Goal: Plan of Care Review Outcome: Ongoing (Interventions Implemented as Appropriate) 01/24/1531901/24/152019 Coping/Psychosocial Response Interventions Plan of Care Reviewed with -- patient Plan of Care Review Plan of Care Outcome Status ongoing (interventions implemented as appropriate) -- Progress no change -- OUTCOME EVALUATION NOTE: OUTCOME SUMMARY: Pt had a bleed today. heart rate monitored. VSS. Will continue to monitor for bleeding. PLAN MOVING FORWARD: continue to monitor bleeding and well being. Pt aware of and agrees with pt. INDIVIDUALIZED FALL PREVENTION: Assistance: Call fry within reach Supervision: independent Surveillance: Purposeful rounding CPG OUTCOME EVALUATION: Goal: Individualization and Mutuality Outcome: Ongoing (Interventions Implemented as Appropriate) 01/23/151751 Individualization Individualize the Plan of Care: Monitor for antepartum bleeding, gylcemic control Patient Specific Preferences cluster care, keep informed with plan of care Patient Specific Goals term delivery Patient Specific Interventions cluster care, monitoring bleeding, blood glucose testing as ordered Mutuality/Individual Preferences What anxieties, fears or concerns do you have about your health or care? previous loss r/t abruption, concern What questions do you have about your health or care? none at this time, encouraged patient to verbalize as arise What information would help us give you more personalized care? none noted Goal: Fall Prevention-Safe Patient Handling Outcome: Ongoing (Interventions Implemented as Appropriate) 01/24/1531901/24/1581601/24/152019 Safety Interventions Safety Precautions/Fall Reduction low bed;nonskid shoes/slippers when out of bed -- -- Musculoskeletal Interventions Activity/Level of Assistance -- -- independently Positioning -- -- independent Muscle Strengthening -- personal routines for BADL/IADL promoted;activity/mobility promoted -- Self-Care Promotion -- personal/BADL objects within reach;personal routines for BADL/IADL promoted -- Lee Fall Risk History of Falling -- -- 0 Secondary Diagnosis -- -- 0 Ambulatory Aids -- -- 0 Intravenous Therapy/Heparin/Saline Lock -- -- 20 Gait/Transferring -- -- 0 Mental Status -- -- 0 Score -- -- 20 OTHER Lee Fall Risk -- -- Low Goal: Infection Control Outcome: Ongoing (Interventions Implemented as Appropriate) 01/24/152019 Safety Interventions Isolation Precautions standard precautions maintained Infection Prevention rest/sleep promoted Coping/Psychosocial Response Interventions Counseling calming techniques promoted Goal: Discharge Needs Assessment Outcome: Ongoing (Interventions Implemented as Appropriate) 01/24/15319 Discharge Needs Assessment Concerns to be Addressed no discharge needs identified Readmission Within the Last 30 Days no previous admission in last 30 days Equipment Needed After Discharge none Current Health Anticipated Changes Related to Illness none Self-Care Equipment Currently Used at Home none Living Environment Transportation Available car Problem: High-Risk/Critically Ill OB Patient (Adult, Obstetrics) Goal: Signs and symptoms of listed potential problems will be absent or manageable (reference (High-Risk/Critically Ill OB Patient (Adult, Obstetrics)) CPG) Outcome: Ongoing (Interventions Implemented as Appropriate) 01/24/15 0320 High-Risk/Critically Ill OB Problems Assessed (High Risk/Critically Ill OB) all Problems Present (High Risk/Critically Ill OB) none * Plan of Care - Lorie Marie RN - 01/24/2015 6:22 PM EST Problem: General Plan of Care Goal: Plan of Care Review Outcome: Ongoing (Interventions Implemented as Appropriate) 01/24/1531901/24/15 0817 Coping/Psychosocial Response Interventions Plan of Care Reviewed with -- patient Plan of Care Review Plan of Care Outcome Status ongoing (interventions implemented as appropriate) -- Progress no change -- OUTCOME EVALUATION NOTE: OUTCOME SUMMARY: Pt in stable condition with VS stable, no bleeding, up & about in room for small increments. Fasting & postprandials obtained. Insulin increased for elevated postprandials. She appears in good spirits with afternoon visitors. She denies questions or concerns with me or during IDR in am. NSTreactive & mom perceives fetus as active & palpated by this RN. PLAN MOVING FORWARD: VS as ordered; assess for bleeding during purposeful rounding. Monitor glucose per parameters. INDIVIDUALIZED FALL PREVENTION: Assistance: Up ad zeus independently Supervision: independent Surveillance: Purposeful rounding CPG OUTCOME EVALUATION: Goal: Individualization and Mutuality Outcome: Ongoing (Interventions Implemented as Appropriate) 01/23/15 1752 Individualization Individualize the Plan of Care: Monitor for antepartum bleeding, gylcemic control Patient Specific Preferences cluster care, keep informed with plan of care Patient Specific Goals term delivery Patient Specific Interventions cluster care, monitoring bleeding, blood glucose testing as ordered Mutuality/Individual Preferences What anxieties, fears or concerns do you have about your health or care? previous loss r/t abruption, concern What questions do you have about your health or care? none at this time, encouraged patient to verbalize as arise What information would help us give you more personalized care? none noted Goal: Fall Prevention-Safe Patient Handling Outcome: Ongoing (Interventions Implemented as Appropriate) 01/24/1531901/24/15 0817 Safety Interventions Safety Precautions/Fall Reduction low bed;nonskid shoes/slippers when out of bed -- Musculoskeletal Interventions Activity/Level of Assistance -- ambulated;up ad zeus;up in room;independently Positioning -- independent Muscle Strengthening -- personal routines for BADL/IADL promoted;activity/mobility promoted Self-Care Promotion -- personal/BADL objects within reach;personal routines for BADL/IADL promoted Lee Fall Risk History of Falling -- 0 Secondary Diagnosis -- 0 Ambulatory Aids -- 0 Intravenous Therapy/Heparin/Saline Lock -- 20 Gait/Transferring -- 0 Mental Status -- 0 Score -- 20 OTHER Lee Fall Risk -- Low Goal: Infection Control Outcome: Ongoing (Interventions Implemented as Appropriate) 01/24/15 0817 Safety Interventions Isolation Precautions standard precautions maintained Infection Prevention rest/sleep promoted;promote handwashing;nutrition promoted;hydration promoted;blood glucose management Coping/Psychosocial Response Interventions Counseling calming techniques promoted;emotional support provided;personal strengths integrated;reassurance provided;relaxation techniques promoted;understanding of situation facilitated;verbalization of feelings encouraged Goal: Discharge Needs Assessment Outcome: Ongoing (Interventions Implemented as Appropriate) 01/24/15 0320 Discharge Needs Assessment Concerns to be Addressed no discharge needs identified Readmission Within the Last 30 Days no previous admission in last 30 days Equipment Needed After Discharge none Current Health Anticipated Changes Related to Illness none Self-Care Equipment Currently Used at Home none Living Environment Transportation Available car Problem: High-Risk/Critically Ill OB Patient (Adult, Obstetrics) Goal: Signs and symptoms of listed potential problems will be absent or manageable (reference (High-Risk/Critically Ill OB Patient (Adult, Obstetrics)) CPG) Outcome: Ongoing (Interventions Implemented as Appropriate) 01/24/15 0320 High-Risk/Critically Ill OB Problems Assessed (High Risk/Critically Ill OB) all Problems Present (High Risk/Critically Ill OB) none * Plan of Care - Judi Negrete RN - 01/24/2015 3:25 AM EST Problem: General Plan of Care Goal: Plan of Care Review Outcome: Ongoing (Interventions Implemented as Appropriate) 01/24/15 0320 Coping/Psychosocial Response Interventions Plan of Care Reviewed with patient Plan of Care Review Plan of Care Outcome Status ongoing (interventions implemented as appropriate) Progress no change OUTCOME EVALUATION NOTE: OUTCOME SUMMARY: Stable antepartum patient on her 1st day of a count down after bleeding. Patient independent in theroom, denies any bleeding this evening. Patient reports positive movement and denies contractions. PLAN MOVING FORWARD: Patient planning to sleep and requests limited interruptions. She will call out when up to void or if she needs anything else. INDIVIDUALIZED FALL PREVENTION: Assistance: Independent call light in reach. Supervision: None Surveillance: Purposeful rounding. Goal: Individualization and Mutuality Outcome: Ongoing (Interventions Implemented as Appropriate) 01/23/15 1752 Individualization Individualize the Plan of Care: Monitor for antepartum bleeding, gylcemic control Patient Specific Preferences cluster care, keep informed with plan of care Patient Specific Goals term delivery Patient Specific Interventions cluster care, monitoring bleeding, blood glucose testing as ordered Mutuality/Individual Preferences What anxieties, fears or concerns do you have about your health or care? previous loss r/t abruption, concern What questions do you have about your health or care? none at this time, encouraged patient to verbalize as arise Goal: Fall Prevention-Safe Patient Handling Outcome: Ongoing (Interventions Implemented as Appropriate) 01/24/15 0320 Safety Interventions Safety Precautions/Fall Reduction low bed;nonskid shoes/slippers when out of bed Musculoskeletal Interventions Activity/Level of Assistance up ad zeus Muscle Strengthening activity/mobility promoted Self-Care Promotion personal/BADL objects within reach;personal routines for BADL/IADL promoted Lee Fall Risk History of Falling 0 Secondary Diagnosis 0 Ambulatory Aids 0 Intravenous Therapy/Heparin/Saline Lock 20 Gait/Transferring 0 Mental Status 0 Score 20 OTHER Lee Fall Risk Low Goal: Infection Control Outcome: Ongoing (Interventions Implemented as Appropriate) 01/24/15 0320 Safety Interventions Isolation Precautions standard precautions maintained Infection Prevention promote handwashing;hydration promoted;rest/sleep promoted Coping/Psychosocial Response Interventions Counseling calming techniques promoted;emotional support provided;reassurance provided Goal: Discharge Needs Assessment Outcome: Ongoing (Interventions Implemented as Appropriate) 01/24/15 0320 Discharge Needs Assessment Concerns to be Addressed no discharge needs identified Readmission Within the Last 30 Days no previous admission in last 30 days Equipment Needed After Discharge none Current Health Anticipated Changes Related to Illness none Self-Care Equipment Currently Used at Home none Living Environment Transportation Available car Problem: High-Risk/Critically Ill OB Patient (Adult, Obstetrics) Goal: Signs and symptoms of listed potential problems will be absent or manageable (reference (High-Risk/Critically Ill OB Patient (Adult, Obstetrics)) CPG) Outcome: Ongoing (Interventions Implemented as Appropriate) 01/24/15 0320 High-Risk/Critically Ill OB Problems Assessed (High Risk/Critically Ill OB) all Problems Present (High Risk/Critically Ill OB) none * Plan of Care - Mayra Akins RN - 01/23/2015 6:05 PM EST Problem: General Plan of Care Goal: Plan of Care Review Outcome: Ongoing (Interventions Implemented as Appropriate) 01/23/151751 Coping/Psychosocial Response Interventions Plan of Care Reviewed with patient Plan of Care Review Plan of Care Outcome Status ongoing (interventions implemented as appropriate) Progress improving Goal: Individualization and Mutuality Outcome: Ongoing (Interventions Implemented as Appropriate) 01/23/151751 Individualization Individualize the Plan of Care: Monitor for antepartum bleeding, gylcemic control Patient Specific Preferences cluster care, keep informed with plan of care Patient Specific Goals term delivery Patient Specific Interventions cluster care, monitoring bleeding, blood glucose testing as ordered Mutuality/Individual Preferences What anxieties, fears or concerns do you have about your health or care? previous loss r/t abruption, concern What questions do you have about your health or care? none at this time, encouraged patient to verbalize as arise What information would help us give you more personalized care? none noted Goal: Fall Prevention-Safe Patient Handling Outcome: Ongoing (Interventions Implemented as Appropriate) 01/23/1590401/23/151751 Safety Interventions Safety Precautions/Fall Reduction -- fall reduction program maintained;nonskid shoes/slippers when out of bed Musculoskeletal Interventions Activity/Level of Assistance up ad zeus;up in room;ambulated;independently -- Positioning independent -- Muscle Strengthening activity/mobility promoted;mobility in bed promoted -- Self-Care Promotion independence encouraged while providing assistance -- Lee Fall Risk History of Falling 0 -- Secondary Diagnosis 0 -- Ambulatory Aids 0 -- Intravenous Therapy/Heparin/Saline Lock 20 -- Gait/Transferring 0 -- Mental Status 0 -- Score 20 -- OTHER Lee Fall Risk Low -- Goal: Infection Control Outcome: Ongoing (Interventions Implemented as Appropriate) 01/23/15904 Safety Interventions Isolation Precautions standard precautions maintained Infection Prevention blood glucose management;bronchial hygiene promoted;environmental surveillance;hydration promoted;nutrition promoted;promote handwashing;rest/sleep promoted Coping/Psychosocial Response Interventions Counseling emotional support provided;reassurance provided;relaxation techniques promoted;understanding of situation facilitated;verbalization of feelings encouraged Goal: Discharge Needs Assessment 01/23/151751 Discharge Needs Assessment Concerns to be Addressed no discharge needs identified Readmission Within the Last 30 Days no previous admission in last 30 days Equipment Needed After Discharge none Current Health Anticipated Changes Related to Illness none Self-Care Equipment Currently Used at Home none Living Environment Transportation Available car;family or friend will provide Problem: High-Risk/Critically Ill OB Patient (Adult, Obstetrics) Intervention: Sleep/Rest Enhancement 01/23/15904 Sleep/Rest/Relaxation Interventions Sleep/Rest Enhancement care clustered to minimize awakenings;sleep/rest pattern promoted Intervention: Antepartum Infection Prevention 01/23/15904 Safety Interventions Antepartum Infection Prevention well-being monitored;hydration promoted Intervention: Bleeding Minimization 01/23/15904 Cardiac Interventions Bleeding Minimization bladder emptying facilitated Intervention: Nutrition Promotion 01/23/151751 Nutrition Interventions Nutrition Promotion vitamin/mineral supplements provided Intervention: Fluid Management 01/23/151751 Nutrition Interventions Fluid Management fluids promoted Intervention: Skin/Mucous Membrane Protection 01/23/15904 Skin Interventions Skin/Mucous Membrane Protection oral hygiene provided;oral rinse provided Intervention: Emotional Support 01/23/15904 Coping/Psychosocial Response Interventions Emotional Support safe, supportive environment facilitated;sleep/rest promoted;relaxation techniques promoted Goal: Signs and symptoms of listed potential problems will be absent or manageable (reference (High-Risk/Critically Ill OB Patient (Adult, Obstetrics)) CPG) Outcome: Ongoing (Interventions Implemented as Appropriate) 01/23/151751 High-Risk/Critically Ill OB Problems Assessed (High Risk/Critically Ill OB) all Problems Present (High Risk/Critically Ill OB) none Comments: OUTCOME EVALUATION NOTE: OUTCOME SUMMARY: Antepartum patient admitted for monitoring of bleeding. No active bleeding noted today, patient didreports scant amount of brown/pink tinged mucous noted on toilet paper after voiding early this morning. No further bleeding noted this shift. VSS, reactive daily NST obtained. Patient insulin dependent GDM, see results review for blood glucose monitoring results and MAR for insulin administrationsas ordered this shift. PLAN MOVING FORWARD: Continue care as guided by CPG guidelines. Prepare patient for eventual discharge and/or delivery. INDIVIDUALIZED FALL PREVENTION: Assistance: Independently ambulating patient. Supervision: None needed, independently ambulating patient. Surveillance: Purposeful rounding, call fry with reach at all times. CPG OUTCOME EVALUATION: * Plan of Care - Latosha Bradley RN - 01/23/2015 6:18 AM EST Problem: General Plan of Care Goal: Plan of Care Review 01/23/15610 Coping/Psychosocial Response Interventions Plan of Care Reviewed with patient Plan of Care Review Plan of Care Outcome Status ongoing (interventions implemented as appropriate) Progress no change Goal: Individualization and Mutuality Outcome: Ongoing (Interventions Implemented as Appropriate) 01/20/15199901/21/15 18001/22/15628 Individualization Individualize the Plan of Care: -- antepartum pt with vaginal bleeding -- Patient Specific Preferences -- cluster care -- Patient Specific Goals -- term delivery -- Patient Specific Interventions -- cluster care -- Mutuality/Individual Preferences What anxieties, fears or concerns do you have about your health or care? -- -- Loss of What questions do you have about your health or care? non -- -- What information would help us give you more personalized care? none -- -- Goal: Fall Prevention-Safe Patient Handling Outcome: Ongoing (Interventions Implemented as Appropriate) 01/22/15203201/23/15 06 Safety Interventions Safety Precautions/Fall Reduction -- low bed;lighting adjusted for task/safety Musculoskeletal Interventions Activity/Level of Assistance -- bedrest with bathroom privileges Positioning -- HOB up 15 degrees Muscle Strengthening -- mobility in bed promoted Self-Care Promotion -- independence encouraged while providing assistance Lee Fall Risk History of Falling 0 -- Secondary Diagnosis 0 -- Ambulatory Aids 0 -- Intravenous Therapy/Heparin/Saline Lock 20 -- Gait/Transferring 0 -- Mental Status 0 -- Score 20 -- OTHER Lee Fall Risk Low -- Goal: Infection Control Outcome: Ongoing (Interventions Implemented as Appropriate) 01/23/15 06 Safety Interventions Isolation Precautions standard precautions maintained Infection Prevention blood glucose management;rest/sleep promoted Coping/Psychosocial Response Interventions Counseling reassurance provided Goal: Discharge Needs Assessment Outcome: Ongoing (Interventions Implemented as Appropriate) 01/23/15 0611 Discharge Needs Assessment Concerns to be Addressed no discharge needs identified Readmission Within the Last 30 Days no previous admission in last 30 days Equipment Needed After Discharge none Current Health Anticipated Changes Related to Illness inability to care for someone else Self-Care Equipment Currently Used at Home none Living Environment Transportation Available family or friend will provide OUTCOME EVALUATION NOTE: OUTCOME SUMMARY: Martinez had a quiet night - sleeping for most of it. IV changed due to tenderness with flushing. PLAN MOVING FORWARD: Continue to monitor bleeding and wellbeing INDIVIDUALIZED FALL PREVENTION: Assistance: Not required Supervision: None needed Surveillance: Purposeful rounding and when called to bedside CPG GOAL OUTCOME EVALUATION: * Plan of Care - Janna Oliva RN - 01/22/2015 4:19 PM EST Problem: General Plan of Care Goal: Plan of Care Review Outcome: Ongoing (Interventions Implemented as Appropriate) 01/22/1562801/22/15 0800 Coping/Psychosocial Response Interventions Plan of Care Reviewed with -- patient Plan of Care Review Plan of Care Outcome Status ongoing (interventions implemented as appropriate) -- Progress no change -- OUTCOME EVALUATION NOTE: OUTCOME SUMMARY: VSS. Blood glucose stable. Scant mucousy red vaginal bleeding this afternoon. PLAN MOVING FORWARD: Continue to monitor. Provide emotional support. INDIVIDUALIZED FALL PREVENTION: Assistance: independent Supervision: independent Surveillance: purposeful rounding CPG OUTCOME EVALUATION: Goal: Individualization and Mutuality Outcome: Ongoing (Interventions Implemented as Appropriate) 01/20/15199901/21/15 18001/22/15 06 Individualization Individualize the Plan of Care: -- antepartum pt with vaginal bleeding -- Patient Specific Preferences -- cluster care -- Patient Specific Goals -- term delivery -- Patient Specific Interventions -- cluster care -- Mutuality/Individual Preferences What anxieties, fears or concerns do you have about your health or care? -- -- Loss of What questions do you have about your health or care? non -- -- What information would help us give you more personalized care? none -- -- Goal: Fall Prevention-Safe Patient Handling Outcome: Ongoing (Interventions Implemented as Appropriate) 01/22/1562801/22/15 0801/22/15 1616 Safety Interventions Safety Precautions/Fall Reduction -- -- nonskid shoes/slippers when out of bed;low bed;room near unit station Musculoskeletal Interventions Activity/Level of Assistance -- bedrest with bathroom privileges -- Positioning -- independent -- Muscle Strengthening mobility in bed promoted -- -- Self-Care Promotion -- independence encouraged while providing assistance -- Lee Fall Risk History of Falling -- 0 -- Secondary Diagnosis -- 15 -- Ambulatory Aids -- 0 -- Intravenous Therapy/Heparin/Saline Lock -- 20 -- Gait/Transferring -- 0 -- Mental Status -- 0 -- Score -- 35 -- OTHER Lee Fall Risk -- Med -- Goal: Infection Control Outcome: Ongoing (Interventions Implemented as Appropriate) 01/22/15 08 Safety Interventions Isolation Precautions standard precautions maintained Infection Prevention blood glucose management;promote handwashing;rest/sleep promoted;nutrition promoted;hydration promoted;environmental surveillance Coping/Psychosocial Response Interventions Counseling understanding of situation facilitated Goal: Discharge Needs Assessment Outcome: Ongoing (Interventions Implemented as Appropriate) 01/22/15628 Discharge Needs Assessment Concerns to be Addressed no discharge needs identified Readmission Within the Last 30 Days no previous admission in last 30 days Equipment Needed After Discharge none Current Health Anticipated Changes Related to Illness none Self-Care Equipment Currently Used at Home none Living Environment Transportation Available family or friend will provide Problem: High-Risk/Critically Ill OB Patient (Adult, Obstetrics) Goal: Signs and symptoms of listed potential problems will be absent or manageable (reference (High-Risk/Critically Ill OB Patient (Adult, Obstetrics)) CPG) Outcome: Ongoing (Interventions Implemented as Appropriate) 01/22/151615 High-Risk/Critically Ill OB Problems Assessed (High Risk/Critically Ill OB) all Problems Present (High Risk/Critically Ill OB) other (see comments) (scant vaginal bleeding) * Plan of Care - Latosha Bradley RN - 01/22/2015 6:34 AM EST Problem: General Plan of Care Goal: Plan of Care Review 01/22/15628 Coping/Psychosocial Response Interventions Plan of Care Reviewed with patient Plan of Care Review Plan of Care Outcome Status ongoing (interventions implemented as appropriate) Progress no change Goal: Individualization and Mutuality Outcome: Ongoing (Interventions Implemented as Appropriate) 01/21/15 18001/22/15628 Individualization Individualize the Plan of Care: antepartum pt with vaginal bleeding -- Patient Specific Preferences cluster care -- Patient Specific Goals term delivery -- Patient Specific Interventions cluster care -- Mutuality/Individual Preferences What anxieties, fears or concerns do you have about your health or care? -- Loss of Goal: Fall Prevention-Safe Patient Handling Outcome: Ongoing (Interventions Implemented as Appropriate) 01/21/15 19301/22/15 06 Safety Interventions Safety Precautions/Fall Reduction -- low bed Musculoskeletal Interventions Activity/Level of Assistance -- up in room Positioning -- HOB up 15 degrees Muscle Strengthening -- mobility in bed promoted Self-Care Promotion -- independence encouraged while providing assistance Lee Fall Risk History of Falling 0 -- Secondary Diagnosis 0 -- Ambulatory Aids 0 -- Intravenous Therapy/Heparin/Saline Lock 20 -- Gait/Transferring 0 -- Mental Status 0 -- Score 20 -- OTHER Lee Fall Risk Low -- Goal: Infection Control Outcome: Ongoing (Interventions Implemented as Appropriate) 01/22/15 06 Safety Interventions Isolation Precautions standard precautions maintained Infection Prevention blood glucose management;rest/sleep promoted Coping/Psychosocial Response Interventions Counseling understanding of situation facilitated;verbalization of feelings encouraged;reassurance provided Goal: Discharge Needs Assessment Outcome: Ongoing (Interventions Implemented as Appropriate) 01/22/15628 Discharge Needs Assessment Concerns to be Addressed no discharge needs identified Readmission Within the Last 30 Days no previous admission in last 30 days Equipment Needed After Discharge none Current Health Anticipated Changes Related to Illness none Self-Care Equipment Currently Used at Home none Living Environment Transportation Available family or friend will provide OUTCOME EVALUATION NOTE: OUTCOME SUMMARY: Martinez had a quiet night. Though instructed to call out for increased bleeding, pain, ctx, decreased FM, she called for nothing overnight. Pt did share she had a prior loss due to abruption, so expressed motivation to do whatever needs to be done to maintain this . PLAN MOVING FORWARD: Continue to monitor vaginal bleeding and wellbeing. INDIVIDUALIZED FALL PREVENTION: Assistance: Independent Supervision: None needed Surveillance: Purposeful rounding and when called to bedside CPG GOAL OUTCOME EVALUATION: * Plan of Care - Janna Oliva RN - 01/21/2015 6:11 PM EST Problem: General Plan of Care Goal: Individualization and Mutuality Outcome: Ongoing (Interventions Implemented as Appropriate) 01/20/15199901/21/151806 Individualization Individualize the Plan of Care: -- antepartum pt with vaginal bleeding Patient Specific Preferences -- cluster care Patient Specific Goals -- term delivery Patient Specific Interventions -- cluster care Mutuality/Individual Preferences What anxieties, fears or concerns do you have about your health or care? none -- What questions do you have about your health or care? non -- What information would help us give you more personalized care? none -- OUTCOME EVALUATION NOTE: OUTCOME SUMMARY: VSS. Scant amount bleeding, now pink (was red earlier today). PLAN MOVING FORWARD: Continue to monitor. Emotional support. INDIVIDUALIZED FALL PREVENTION: Assistance: independent Supervision: independent Surveillance: Purposeful rounding CPG OUTCOME EVALUATION: Goal: Fall Prevention-Safe Patient Handling Outcome: Ongoing (Interventions Implemented as Appropriate) 01/21/151806 Safety Interventions Safety Precautions/Fall Reduction lighting adjusted for task/safety;low bed;nonskid shoes/slippers when out of bed;room near unit station Goal: Infection Control Outcome: Ongoing (Interventions Implemented as Appropriate) 01/21/151806 Safety Interventions Isolation Precautions contact precautions maintained;droplet precautions maintained Coping/Psychosocial Response Interventions Counseling emotional support provided;reassurance provided;understanding of situation facilitated;verbalization of feelings encouraged Goal: Discharge Needs Assessment Outcome: Ongoing (Interventions Implemented as Appropriate) 01/21/151806 Discharge Needs Assessment Concerns to be Addressed no discharge needs identified Readmission Within the Last 30 Days no previous admission in last 30 days Equipment Needed After Discharge none Current Health Anticipated Changes Related to Illness none Self-Care Equipment Currently Used at Home none Living Environment Transportation Available family or friend will provide Problem: High-Risk/Critically Ill OB Patient (Adult, Obstetrics) Goal: Signs and symptoms of listed potential problems will be absent or manageable (reference (High-Risk/Critically Ill OB Patient (Adult, Obstetrics)) CPG) Outcome: Ongoing (Interventions Implemented as Appropriate) 01/21/151806 High-Risk/Critically Ill OB Problems Assessed (High Risk/Critically Ill OB) all Problems Present (High Risk/Critically Ill OB) Scant vaginal bleeding * Consult Note - Henny Dudley MD - 01/21/2015 12:27 PM EST consult: We were asked by the obstetrical service, Dr. Bennett to provide consultation on Martinez Richardson, a 29 y.o. old patient on the bir[facility] pavilion with baby girl to be named Dorcas at 30 6/7 weeksgestation. I reviewed history in chart as well as oral history from Martinez. Martinez lives with her Víctor and their 3 children in [place], [place]. They have an adopted 10 year old boy, a 6 year old girl freddy 4 year old boy. 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 Víctor was unable to join us as he is with the other children but Martinez's mother and stepfather were with us in the room. Martinez presented on 01/20 because of vaginal bleeding. Her last bleeding episode was at 03:00 today. She has received her first dose of betamethasone and her second dose will be given this evening. Relevant History: - PCOS - Gestational diabetes - Septate uterus - Anxiety and depression - Varicella - History of 2 prior deliveries - History of abruption per Martinez. Chart notes a loss in 2006 at 10 weeks and a loss in 2004 at 10 weeks. Recommendations and advice discussed: I met with Martinez, her mother and stepfather, Wild, to discuss the delivery and management of infant born at 30 6/7 week gestation. We discussed specific management likely for the anticipated problems of prematurity like resuscitation and stabilization at delivery including intubation and surfactant replacement, mechanical ventilation and need for vascular access (central lines). We discussed issues Ingrid will deal with including but not limited to respiratory insufficiency, nutrition and learning to breast feed, concerns forthe risk of NEC. Martinez's biggest concerns included the history of abruption she experienced with her previous loss and successfully breast feeding. In regards to the abruption, we discussed how there is no way of predicting but she is a tertiary care center. We discussed what she and Víctor can expect at delivery. We discussed that premature infants are at risk for bleeding into their brains due to the fragility of their vessels. Regarding breast feeding, we discussed the nature process of starting with tube feeds and advancingwith her milk as we decrease the IV nutrition. We discussed how we help mothers successfully breastfeed everyday and we will support her through this. We discussed in brief the general issues of intensive care, including team composition, philosophy of parents as collaborators and active participants in care as well as policies regarding rounds, visitation by family members and friends. Parents asked appropriate question which were addressed during our discussion. We will be happy to return to answer any question if the need arises. Time in consultation: 35 minutes were spent in consultation, with 30 minutes spent directly counseling patient. Thank you for requesting consultation by the neonatology service. We will continue to follow coursealong with you. documented in this encounter Plan of Treatment Not on file documented as of this encounter Procedures Procedure Name Priority Date/Time Associated Diagnosis Comments HEMOGRAM Routine 03/02/2015 6:15 AM EDT DIFFERENTIAL, AUTOMATED Routine 03/02/20 15 6:15 AM EDT CBC (WITH DIFF) Routine 03/02/2015 6:15 AM EDT SPECIMEN TO PATHOLOGY (NON-OR) Routine 03/01/2015 4:48 PM EDT SPECIMEN TO PATHOLOGY Routine 03/01/2015 4:48 PM EDT SPECIMEN TO PATHOLOGY Routine 03/01/2015 4:48 PM EDT PREPARE RBC Routine 03/01/2015 2:10 PM EDT @FALLOPIAN TUBE(S), TRANSECTION OR LIGATION, ABD APPROACH, POST- (WRVU 5.28) 03/01/2015 2:09 PM EDT ABRUPTION; REPEAT C/S @ DELIVERY (WRVU 16.13) 03/01/2015 2:09 PM EDT ABRUPTION; REPEAT C/S HEMOGRAM STAT 03/01/2015 1:40 PM EDT DIFFERENTIAL, AUTOMATED STAT 03/01/20 15 1:40 PM EDT APTT STAT 03/01/2015 1:40 PM EDT PROTHROMBIN TIME STAT 03/01/2015 1:40 PM EDT CBC (WITH DIFF) STAT 03/01/2015 1:40 PM EDT SURGICAL PATHOLOGY REPORT Routine 03/01/2015 9:56 AM EDT POCT GLUCOSE Routine 03/01/2015 9:10 AM EDT POCT GLUCOSE Routine 03/01/2015 6:57 AM EDT ABO/RH TYPING Routine 02/28/2015 8:27 PM EDT ANTIBODY SCREEN Routine 02/28/2015 8:27 PM EDT TYPE AND SCREEN ([facility]/SABINO) Routine 02/28/2015 8:27 PM EDT POCT GLUCOSE Routine 02/28/2015 8:00 PM EDT POCT GLUCOSE Routine 02/28/2015 2:34 PM EDT POCT GLUCOSE Routine 02/28/2015 9:07 AM EDT POCT GLUCOSE Routine 02/28/2015 6:25 AM EDT POCT GLUCOSE Routine 02/27/2015 7:46 PM EDT POCT GLUCOSE Routine 02/27/2015 9:06 AM EDT POCT GLUCOSE Routine 02/27/2015 6:17 AM EDT POCT GLUCOSE Routine 02/26/2015 7:25 PM EDT POCT GLUCOSE Routine 02/26/2015 2:05 PM EDT POCT GLUCOSE Routine 02/26/2015 9:42 AM EDT POCT GLUCOSE Routine 02/26/2015 6:39 AM EDT ABO/RH TYPING Timed 02/25/2015 9:05 PM EDT ANTIBODY SCREEN Timed 02/25/2015 9:05 PM EDT TYPE AND SCREEN ([facility]P/SABINO) Timed 02/25/2015 9:05 PM EDT POCT GLUCOSE Routine 02/25/2015 7:23 PM EDT POCT GLUCOSE Routine 02/25/2015 2:35 PM EDT POCT GLUCOSE Routine 02/25/2015 9:43 AM EDT POCT GLUCOSE Routine 02/25/2015 7:05 AM EDT POCT GLUCOSE Routine 02/24/2015 7:59 PM EDT US OB FOLLOW UP Routine 02/24/2015 2:11 PM EDT POCT GLUCOSE Routine 02/24/2015 1:22 PM EDT POCT GLUCOSE Routine 02/24/2015 9:15 AM EDT POCT GLUCOSE Routine 02/24/2015 6:37 AM EDT GROUP B STREPTOCOCCUS SCREEN Routine 02/23/2015 8:56 PM EDT GROUP B STREP CULTURE SCREEN Routine 02/23/2015 8:56 PM EDT POCT GLUCOSE Routine 02/23/2015 7:34 PM EDT POCT GLUCOSE Routine 02/23/2015 2:14 PM EDT POCT GLUCOSE Routine 02/23/2015 9:31 AM EDT POCT GLUCOSE Routine 02/23/2015 6:47 AM EDT POCT URINE DIPSTICK Routine 02/23/2015 ABO/RH TYPING Routine 02/22/2015 9:14 PM EDT ANTIBODY SCREEN Routine 02/22/2015 9:14 PM EDT TYPE AND SCREEN ([facility]P/SABINO) Routine 02/22/2015 9:14 PM EDT POCT GLUCOSE Routine 02/22/2015 6:55 PM EDT POCT GLUCOSE Routine 02/22/2015 1:34 PM EDT POCT GLUCOSE Routine 02/22/2015 9:01 AM EDT POCT GLUCOSE Routine 02/22/2015 6:24 AM EDT POCT GLUCOSE Routine 02/21/2015 7:14 PM EDT POCT GLUCOSE Routine 02/21/2015 1:10 PM EDT POCT GLUCOSE Routine 02/21/2015 9:04 AM EDT POCT GLUCOSE Routine 02/21/2015 6:42 AM EDT POCT GLUCOSE Routine 02/20/2015 6:52 PM EDT POCT GLUCOSE Routine 02/20/2015 2:22 PM EDT POCT GLUCOSE Routine 02/20/2015 9:16 AM EDT POCT GLUCOSE Routine 02/20/2015 6:37 AM EDT POCT GLUCOSE Routine 02/19/2015 7:27 PM EDT ABO/RH TYPING Routine 02/19/2015 5:45 PM EDT ANTIBODY SCREEN Routine 02/19/2015 5:45 PM EDT TYPE AND SCREEN ([facility]/SABINO) Routine 02/19/2015 5:45 PM EDT POCT GLUCOSE Routine 02/19/2015 2:44 PM EDT POCT GLUCOSE Routine 02/19/2015 10:32 AM EDT POCT GLUCOSE Routine 02/19/2015 7:04 AM EDT POCT GLUCOSE Routine 02/18/2015 7:13 PM EDT POCT GLUCOSE Routine 02/18/2015 1:45 PM EDT POCT GLUCOSE Routine 02/18/2015 10:05 AM EDT POCT GLUCOSE Routine 02/18/2015 7:45 AM EDT POCT GLUCOSE Routine 02/17/2015 7:02 PM EDT POCT GLUCOSE Routine 02/17/2015 2:03 PM EDT POCT GLUCOSE Routine 02/17/2015 8:38 AM EDT POCT GLUCOSE Routine 02/17/2015 8:36 AM EDT POCT GLUCOSE Routine 02/17/2015 7:04 AM EDT POCT GLUCOSE Routine 02/16/2015 7:01 PM EDT ABO/RH TYPING Timed 02/16/2015 3:47 PM EDT ANTIBODY SCREEN Timed 02/16/2015 3:47 PM EDT TYPE AND SCREEN ([facility]/SABINO) Timed 02/16/2015 3:47 PM EDT POCT GLUCOSE Routine 02/16/2015 2:06 PM EDT POCT GLUCOSE Routine 02/16/2015 9:07 AM EDT POCT GLUCOSE Routine 02/16/2015 6:18 AM EDT POCT GLUCOSE Routine 02/15/2015 7:07 PM EDT POCT GLUCOSE Routine 02/15/2015 2:15 PM EDT POCT GLUCOSE Routine 02/15/2015 9:19 AM EDT POCT GLUCOSE Routine 02/15/2015 6:21 AM EDT POCT GLUCOSE Routine 02/14/2015 7:20 PM EDT POCT GLUCOSE Routine 02/14/2015 1:10 PM EDT POCT GLUCOSE Routine 02/14/2015 10:03 AM EDT POCT GLUCOSE Routine 02/14/2015 7:03 AM EDT POCT GLUCOSE Routine 02/13/2015 7:16 PM EDT ABO/RH TYPING Timed 02/13/2015 3:22 PM EDT ANTIBODY SCREEN Timed 02/13/2015 3:22 PM EDT TYPE AND SCREEN ([facility]/SABINO) Timed 02/13/2015 3:22 PM EDT POCT GLUCOSE Routine 02/13/2015 1:12 PM EDT POCT GLUCOSE Routine 02/13/2015 10:07 AM EDT POCT GLUCOSE Routine 02/13/2015 8:19 AM EDT POCT GLUCOSE Routine 02/12/2015 7:46 PM EDT POCT GLUCOSE Routine 02/12/2015 2:11 PM EDT POCT GLUCOSE Routine 02/12/2015 9:48 AM EDT POCT GLUCOSE Routine 02/12/2015 8:06 AM EDT POCT GLUCOSE Routine 02/11/2015 7:47 PM EDT POCT GLUCOSE Routine 02/11/2015 9:42 AM EDT POCT GLUCOSE Routine 02/11/2015 6:33 AM EDT POCT GLUCOSE Routine 02/10/2015 7:49 PM EDT ABO/RH TYPING Routine 02/10/2015 4:36 PM EDT ANTIBODY SCREEN Routine 02/10/2015 4:36 PM EDT TYPE AND SCREEN ([facility]/SABINO) Routine 02/10/2015 4:36 PM EDT POCT GLUCOSE Routine 02/10/2015 10:05 AM EDT POCT GLUCOSE Routine 02/10/2015 7:12 AM EDT POCT GLUCOSE Routine 02/09/2015 8:14 PM EDT POCT GLUCOSE Routine 02/09/2015 1:32 PM EDT POCT URINE DIPSTICK Routine 02/09/2015 1 2:24 PM EDT POCT GLUCOSE Routine 02/09/2015 9:10 AM EDT POCT GLUCOSE Routine 02/09/2015 6:22 AM EDT POCT GLUCOSE Routine 02/08/2015 7:03 PM EDT POCT GLUCOSE Routine 02/08/2015 2:17 PM EDT POCT GLUCOSE Routine 02/08/2015 9:41 AM EDT POCT GLUCOSE Routine 02/08/2015 6:41 AM EDT POCT GLUCOSE Routine 02/07/2015 7:04 PM EDT ABO/RH TYPING Routine 02/07/2015 4:25 PM EDT ANTIBODY SCREEN Routine 02/07/2015 4:25 PM EDT TYPE AND SCREEN ([facility]/SABINO) Routine 02/07/2015 4:25 PM EDT POCT GLUCOSE Routine 02/07/2015 2:16 PM EDT POCT GLUCOSE Routine 02/07/2015 9:04 AM EDT POCT GLUCOSE Routine 02/07/2015 6:20 AM EDT POCT GLUCOSE Routine 02/06/2015 8:30 PM EDT POCT GLUCOSE Routine 02/06/2015 2:31 PM EDT HEMOGRAM Routine 02/06/2015 12:40 PM EDT DIFFERENTIAL, AUTOMATED Routine 02/07/20 12:40 PM EDT CBC (WITH DIFF) Routine 02/06/2015 12:40 PM EDT US OB FOLLOW UP Routine 02/06/2015 11:31 AM EDT POCT GLUCOSE Routine 02/06/2015 10:03 AM EDT POCT GLUCOSE Routine 02/06/2015 7:27 AM EDT POCT GLUCOSE Routine 02/05/2015 7:14 PM EDT POCT GLUCOSE Routine 02/05/2015 2:11 PM EDT POCT GLUCOSE Routine 02/05/2015 10:01 AM EDT POCT GLUCOSE Routine 02/05/2015 6:58 AM EDT ABO/RH TYPING Timed 02/04/2015 9:20 PM EDT ANTIBODY SCREEN Timed 02/04/2015 9:20 PM EDT TYPE AND SCREEN ([facility]P/SABINO) Timed 02/04/2015 9:20 PM EDT POCT GLUCOSE Routine 02/04/2015 7:03 PM EDT POCT GLUCOSE Routine 02/04/2015 2:15 PM EDT POCT GLUCOSE Routine 02/04/2015 9:50 AM EDT POCT GLUCOSE Routine 02/04/2015 7:05 AM EDT POCT GLUCOSE Routine 02/03/2015 8:08 PM EDT POCT GLUCOSE Routine 02/03/2015 1:52 PM EDT POCT GLUCOSE Routine 02/03/2015 9:43 AM EDT POCT GLUCOSE Routine 02/03/2015 6:52 AM EDT POCT GLUCOSE Routine 02/02/2015 8:37 PM EDT POCT GLUCOSE Routine 02/02/2015 2:22 PM EDT POCT GLUCOSE Routine 02/02/2015 9:33 AM EDT POCT GLUCOSE Routine 02/02/2015 6:45 AM EDT ABO/RH TYPING Timed 02/01/2015 10:10 PM EDT ANTIBODY SCREEN Timed 02/01/2015 10:10 PM EDT TYPE AND SCREEN ([facility]P/SABINO) Timed 02/01/2015 10:10 PM EDT POCT GLUCOSE Routine 02/01/2015 7:09 PM EDT POCT GLUCOSE Routine 02/01/2015 12:57 PM EDT POCT GLUCOSE Routine 02/01/2015 9:41 AM EDT POCT GLUCOSE Routine 02/01/2015 6:58 AM EDT POCT GLUCOSE Routine 01/31/2015 7:04 PM EDT POCT GLUCOSE Routine 01/31/2015 2:09 PM EDT POCT GLUCOSE Routine 01/31/2015 9:32 AM EDT POCT GLUCOSE Routine 01/31/2015 6:36 AM EDT POCT GLUCOSE Routine 01/30/2015 8:12 PM EDT POCT GLUCOSE Routine 01/30/2015 3:16 PM EDT POCT GLUCOSE Routine 01/30/2015 10:09 AM EDT POCT GLUCOSE Routine 01/30/2015 6:55 AM EDT POCT GLUCOSE Routine 01/29/2015 7:25 PM EDT ABO/RH TYPING Routine 01/29/2015 7:25 PM EDT ANTIBODY SCREEN Routine 01/29/2015 7:25 PM EDT TYPE AND SCREEN ([facility]/CGP/SABINO) Routine 01/29/2015 7:25 PM EDT POCT GLUCOSE Routine 01/29/2015 2:17 PM EDT POCT GLUCOSE Routine 01/29/2015 10:04 AM EDT POCT GLUCOSE Routine 01/29/2015 6:07 AM EDT POCT GLUCOSE Routine 01/28/2015 7:09 PM EST POCT GLUCOSE Routine 01/28/2015 2:41 PM EST POCT GLUCOSE Routine 01/28/2015 10:24 AM EST POCT GLUCOSE Routine 01/28/2015 8:13 AM EST POCT GLUCOSE Routine 01/27/2015 7:37 PM EST POCT GLUCOSE Routine 01/27/2015 2:35 PM EST POCT GLUCOSE Routine 01/27/2015 11:19 AM EST HEMOGRAM STAT 01/27/2015 10:45 AM EST DIFFERENTIAL, AUTOMATED STAT 01/28/20 10:45 AM EST CREATININE STAT 01/27/2015 10:45 AM EST CBC (WITH DIFF) STAT 01/27/2015 10:45 AM EST ASPARTATE AMINOTRANSFERASE STAT 01/27/2015 10:45 AM EST MAGNESIUM STAT 01/27/2015 10:45 AM EST POCT GLUCOSE Routine 01/27/2015 8:15 AM EST ABO/RH TYPING Routine 01/26/2015 9:15 PM EST ANTIBODY SCREEN Routine 01/26/2015 9:15 PM EST TYPE AND SCREEN ([facility]P/SABINO) Routine 01/26/2015 9:15 PM EST POCT GLUCOSE Routine 01/26/2015 7:27 PM EST POCT GLUCOSE Routine 01/26/2015 1:35 PM EST POCT GLUCOSE Routine 01/26/2015 9:41 AM EST POCT GLUCOSE Routine 01/26/2015 8:37 AM EST POCT GLUCOSE Routine 01/25/2015 7:38 PM EST POCT GLUCOSE Routine 01/25/2015 1:32 PM EST POCT GLUCOSE Routine 01/25/2015 9:27 AM EST POCT GLUCOSE Routine 01/25/2015 7:06 AM EST POCT GLUCOSE Routine 01/24/2015 7:31 PM EST POCT GLUCOSE Routine 01/24/2015 2:23 PM EST POCT GLUCOSE Routine 01/24/2015 10:09 AM EST POCT GLUCOSE Routine 01/24/2015 6:59 AM EST POCT GLUCOSE Routine 01/23/2015 7:31 PM EST POCT GLUCOSE Routine 01/23/2015 2:51 PM EST ABO/RH TYPING Routine 01/23/2015 10:32 AM EST ANTIBODY SCREEN Routine 01/23/2015 10:32 AM EST TYPE AND SCREEN ([facility]P/SABINO) Routine 01/23/2015 10:32 AM EST POCT GLUCOSE Routine 01/23/2015 10:25 AM EST POCT GLUCOSE Routine 01/23/2015 7:45 AM EST POCT GLUCOSE Routine 01/22/2015 7:27 PM EST POCT GLUCOSE Routine 01/22/2015 1:50 PM EST POCT GLUCOSE Routine 01/22/2015 9:50 AM EST POCT GLUCOSE Routine 01/22/2015 7:34 AM EST POCT GLUCOSE Routine 01/21/2015 7:37 PM EST POCT GLUCOSE Routine 01/21/2015 2:28 PM EST US OB FOLLOW UP Routine 01/21/2015 10:18 AM EST POCT GLUCOSE Routine 01/21/2015 9:43 AM EST POCT GLUCOSE Routine 01/21/2015 7:07 AM EST GROUP B STREPTOCOCCUS SCREEN Routine 01/20/2015 8:27 PM EST GROUP B STREP CULTURE SCREEN Routine 01/20/2015 8:27 PM EST POCT GLUCOSE Routine 01/20/2015 8:12 PM EST ABO/RH TYPING Routine 01/20/2015 6:02 PM EST ANTIBODY SCREEN Routine 01/20/2015 6:02 PM EST TYPE AND SCREEN ([facility]P/SABINO) Routine 01/20/2015 6:02 PM EST HEMOGRAM Routine 01/20/2015 5:45 PM EST DIFFERENTIAL, AUTOMATED Routine 01/20/20 5:45 PM EST CBC (WITH DIFF) Routine 01/20/2015 5:45 PM EST documented in this encounter Results * (ABNORMAL) Differential, Automated (03/02/2015 6:15 AM EDT) [facility] Neutrophil % 72.7 % [facility] Neutrophil Absolute 8.89(H) 1.50 - 6.30 x10(3)/mc L CERNER MILLENNIUM Lymph % 15.0 % CERNER MILLENNIUM Lymphocytes Abs 1.8 1.0 - 3.6 x10(3)/mc L CERNER MILLENNIUM Monocyte % 11.1 % CERNER MILLENNIUM Monocyte Abs 1.4(H) 0.2 - 1.0 x10(3)/mc L CERNER MILLENNIUM Eos % 0.7 % CERNER MILLENNIUM Eosinophils Abs 0.1 0.0 - 0.5 x10(3)/mc L CERNER MILLENNIUM Basophil % 0.1 % CERNER MILLENNIUM Baso Absolute 0.0 0.0 - 0.2 x10(3)/mc L CERNER MILLENNIUM Immature Gran % 0.40 % CERN ER MILLENNIUM Comment: Immature granulocytes(IG's)percentage and absolute count will include metamyelocytes, myelocytes, and promyelocytes. Blood smears from CBCs yielding IG's will be scanned manually for concordance. If this scan disagrees with the automated IG or if promyelocytes are noted, a manual differential will be performed. Immature Gran Absolute 0.05 0.00 - 0.05 x10(3)/mc L CERNER MILLENNIUM Blood specimen (specimen) 03/02/2015 6:15 AM EDT 03/02/2015 6:36 AM EDT Narrative Resulting Agency Comment Spec In Lab Griselda Hampton MD HEMATOLOGY ORDERABLE S CERNER MILLENNIUM * (ABNORMAL) Hemogram (03/02/2015 6:15 AM EDT) White Blood Cell 12.2(H) 4.0 - 10.0 x10(3)/mc L CERNER MILLENNIUM Red Blood Cell 3.63(L) 3.93 - 5.22 x10(6)/mc L CERNER MILLENNIUM Hemoglobin 11.7 11.2 - 15.7 gm/dL CERNER MILLENNIUM Hematocrit 34.7 34.0 - 45.0 % CERNER MILLENNIUM Mean Cell Volume 95.6(H) 79.0 - 94.0 fL CERNER MILLENNIUM Mean Cell Hemoglobin 32.2 26.6 - 32.2 pg CERNER MILLENNIUM Mean Cell Hemoglobin Concentration 33.7 32.0 - 36.5 gm/dL CERNER MILLENNIUM Platelet 153 145 - 370 x10(3)/mc L CERNER MILLENNIUM RDW Standard Deviation 49.4(H) 35.0 - 46.0 fL CERNER MILLENNIUM RDW coefficient of variation 14.2 10.9 - 14.4 % CERNER MILLENNIUM Mean Platelet Volume 9.9 9.0 - 12.0 fL CERNER MILLENNIUM Blood specimen (specimen) 03/02/2015 6:15 AM EDT 03/02/2015 6:36 AM EDT Narrative Resulting Agency Comment Spec In Lab Griselda Hampton MD HEMATOLOGY ORDERABLE S Performing Organization Address [facility] de Phone Number SARA SHETH * Specimen to Pathology (surgical or derm) (03/01/2015 4:48 PM EDT) AP Specimen 03/01/2015 4:48 PM EDT 03/01/2015 4:48 PM EDT Narrative CERHÉCTOR CHAUDHARYENNIUM - 03/01/2015 4:48 PM EDT Specimen requisition ordered. ??Separate Pathology report to follow Griselda Hampton MD PATHOLOGY/CYTOLOGY O JAMILAH Performing Organization Address [facility] de Phone Number [facility] * Specimen to Pathology (surgical or derm) (03/01/2015 4:48 PM EDT) AP Specimen 03/01/2015 4:48 PM EDT 03/01/2015 4:48 PM EDT Narrative CERNER MILLENNIUM - 03/01/2015 4:48 PM EDT Specimen requisition ordered. ??Separate Pathology report to follow Griselda Hampton MD PATHOLOGY/CYTOLOGY O JAMILAH Performing Organization Address [facility] Co de Phone Number [facility]ARA [facility] * Specimen to Pathology (NON-OR) (03/01/2015 4:48 PM EDT) AP Specimen 03/01/2015 4:48 PM EDT 03/01/2015 4:48 PM EDT Narrative CERNER MILLENNIUM - 03/01/2015 4:48 PM EDT Specimen requisition ordered. ??Separate Pathology report to follow Griselda Hampton MD PATHOLOGY/CYTOLOGY O RDERABLES CERHÉCTOR CHAUDHARYENNIUM * Prepare RBC (03/01/2015 2:10 PM EDT) Dispensed? Yes CERNER MILLENNIUM Blood specimen (specimen) 03/01/2015 2:10 PM EDT 03/01/2015 2:10 PM EDT Sanju Marcos MD BLOOD BANK PRODUCT O RDERABLES Performing Organization Address [facility]/ZIP Co de Phone Number CERNER JETENNIUM * (ABNORMAL) Differential, Automated (03/01/2015 1:40 PM EDT) Neutrophil % 65.1 % CERNER MILLENNIUM Neutrophil Absolute 6.19 1.50 - 6.30 x10(3)/mc L CERNER MILLENNIUM Lymph % 23.4 % CERNER MILLENNIUM Lymphocytes Abs 2.2 1.0 - 3.6 x10(3)/mc L CERNER MILLENNIUM Monocyte % 9.5 % CERNER MILLENNIUM Monocyte Abs 0.9 0.2 - 1.0 x10(3)/mc L CERNER MILLENNIUM Eos % 0.8 % CERNER MILLENNIUM Eosinophils Abs 0.1 0.0 - 0.5 x10(3)/mc L CERNER MILLENNIUM Basophil % 0.2 % CERNER MILLENNIUM Baso Absolute 0.0 0.0 - 0.2 x10(3)/mc L CERNER MILLENNIUM Immature Gran % 1.00 % CERN ER MILLENNIUM Comment: Immature granulocytes(IG's)percentage and absolute count will include metamyelocytes, myelocytes, and promyelocytes. Blood smears from CBCs yielding IG's will be scanned manually for concordance. If this scan disagrees with the automated IG or if promyelocytes are noted, a manual differential will be performed. Immature Gran Absolute 0.10(H) 0.00 - 0.05 x10(3)/mc L CERNER MILLENNIUM Blood specimen (specimen) 03/01/2015 1:40 PM EDT 03/01/2015 1:48 PM EDT Narrative Resulting Agency Comment Spec In Lab Sanju Marcos MD HEMATOLOGY ORDERABLE S CERNER MILLENNIUM * (ABNORMAL) Hemogram (03/01/2015 1:40 PM EDT) White Blood Cell 9.5 4.0 - 10.0 x10(3)/mc L CERNER MILLENNIUM Red Blood Cell 4.77 3.93 - 5.22 x10(6)/mc L CERNER MILLENNIUM Hemoglobin 15.7 11.2 - 15.7 gm/dL CERNER MILLENNIUM Hematocrit 45.3(H) 34.0 - 45.0 % CERNER MILLENNIUM Mean Cell Volume 95.0(H) 79.0 - 94.0 fL CERNER MILLENNIUM Mean Cell Hemoglobin 32.9(H) 26.6 - 32.2 pg CERNER MILLENNIUM Mean Cell Hemoglobin Concentration 34.7 32.0 - 36.5 gm/dL CERNER MILLENNIUM Platelet 175 145 - 370 x10(3)/mc L CERNER MILLENNIUM RDW Standard Deviation 49.6(H) 35.0 - 46.0 fL CERNER MILLENNIUM RDW coefficient of variation 14.4 10.9 - 14.4 % CERNER MILLENNIUM Mean Platelet Volume 9.9 9.0 - 12.0 fL CERNER MILLENNIUM Blood specimen (specimen) 03/01/2015 1:40 PM EDT 03/01/2015 1:48 PM EDT Narrative Resulting Agency Comment Spec In Lab Sanju Marcos MD HEMATOLOGY ORDERABLE S CERNER MILLENNIUM * (ABNORMAL) APTT (03/01/2015 1:40 PM EDT) Partial Thromboplastin Time 24(L) 25 - 35 sec CERNER MILLENNIUM Comment: Decreased clotting times may be caused by improper phlebotomy technique. Recommended therapeutic PTT range for full dose unfractionated heparin is 80-114 seconds. Blood specimen (specimen) 03/01/2015 1:40 PM EDT 03/01/2015 1:48 PM EDT Narrative Resulting Agency Comment Spec In Lab Sanju Marcos MD HEMATOLOGY ORDERABLE S Performing Organization Address [facility] de Phone Number SARA SHETH * (ABNORMAL) Prothrombin Time (03/01/2015 1:40 PM EDT) Prothrombin Time 12.4(L) 12.5 - 15.5 sec [facility] [employer] ExpertENNIUM Comment: Transfusion Committee Guidelines: INR less than 2.0, PTT less than OR equal to 43.5 seconds, or Fibrinogen greater than or equal to 100 mg/dl indicate adequate procoagulant activity for hemostasis in patients without underlying bleeding disorders. International Normalization Ratio 0.9 0.9 - 1.1 [facility] Blood specimen (specimen) 03/01/2015 1:40 PM EDT 03/01/2015 1:48 PM EDT Narrative Resulting Agency Comment Spec In Lab Sanju Marcos MD HEMATOLOGY ORDERABLE S Performing Organization Address [facility] de Phone Number SARA SHETH * Surgical Pathology Report (03/01/2015 9:56 AM EDT) Final Diagnosis ? [facility] ? Provider: ?? FREDERICK, VINICIUS Knott ?? Pt. Name: ?? MARTINEZ RICHARDSON ? Acc #: ?[id number] ?Pt. ? Col Date: ?? 03/01/2015 ?/Sex: ?1985,(29 years),Female ? Rec Date: ?? 03/02/2015 ?LOC: ?BP ? SURGICAL PATHOLOGY ? ---Pathologic Diagnosis--- ? A - Third trimester placenta, cord and membranes: ? Negative for chorioamnionitis or funisitis. ? B - Segment of left fallopian tube: ? Completely transected fallopian tube. ? C - Segment of right fallopian tube: ? Completely transected fallopian tube. ? CR-0 ? 03/07/15 ? KO ? 03/07/15 Verified by: ? Yvonne Whitlock MD ? Pathologist ? (Electronic Signature) ? The attending pathologist whose signature appears on this report has ? reviewed all diagnostic slides and has edited the gross and/or ? microscopic portion of the report in rendering the final pathologic ? diagnosis. ? ---Gross Description--- ? A - Labeled/Fixative: Placenta, fresh. ? Qty/Size/Weight: Single, 19.5 x 15.0 x 4.0 cm, 526 grams. ? Tissue Description: Intact irene placenta with ovoid shape. ? Membranes: Ruskin-yellow and hazy with marginal insertion. ? Cord: Received in two fragments 51.0 x 1.8 cm; three vessels; eccentric ? insertion and edematous. ? Surface: Purple-pink and clear. Subchorionic fibrin identified. ? Maternal Surface: Intact dark red-purple with calcific stippling. ? Parenchyma: Dark red and homogenous with one possible infarct identified. ? Sections/Processing : (1) membrane roll; (2) proximal and distal cord; (3) ? surface; (4) maternal surface. (R4) beckie ? B - Labeled/Fixative: Portion of left fallopian tube, formalin. ? Quantity/Size: Single, 1.0 x 1.0 x 0.5 cm. ? Tissue Description: Cornell-pink tubular portion of tissue. ? Sections/Processing : (R1) ? C - Labeled/Fixative: Portion of right fallopian tube, formalin. ? Quantity/Size: Single, 1.0 x 1.0 x 0.5 cm. ? [facility] ? Provider: ?? FREDERICK, VINICIUS Knott ?? Pt. Name: ?? MARTINEZ RICHARDSON ? Acc #: ?[id number] ?Pt. ? Col Date: ?? 03/01/2015 ?/Sex: ?1985,(29 years),Female ? Rec Date: ?? 03/02/2015 ?LOC: ?BP ? SURGICAL PATHOLOGY ? Tissue Description: Cornell-pink tubular portion of tissue. ? Sections/Processing : (R1) ? ---Clinical Information--- ? Specimen Submitted: ? A - Placenta ? B - Portion of left fallopian tube ? C - Portion of right fallopian tube ? Clinical History: ? 29-year-old 022 at 36+3 weeks gestation admitted with chronic ? abruption status post repeat section and bilateral tubal ligation ? Clinical Diagnosis: ? Same 03/07/2015 1:01 PM EDT [facility] TISSUE SPECIMEN FROM PLACENTA / Unknown 03/01/2015 9:56 AM EDT 03/01/2015 9:56 AM EDT False Vocal Cords, Bilateral 03/01/2015 9:56 AM EDT 03/01/2015 9:56 AM EDT False Vocal Cords, Bilateral 03/01/2015 9:56 AM EDT 03/01/2015 9:56 AM EDT Vinicius Mack MD PATHOLOGY/CYTOLOGY O RDERABLES Performing Organization Address [facility] Co de Phone Number [facility] [place] [address] * POCT Glucose (03/01/2015 9:10 AM EDT) Glucose, POC 132 60 - 199 mg/dL [facility] Comment: Supplemental ranges: <140 mg/dL before meals <180 mg/dL all other times of the day Blood specimen (specimen) 03/01/2015 9:10 AM EDT 03/01/2015 9:10 AM EDT Sanju Marcos MD POINT OF CARE TEST O RDERAKELIN Performing Organization Address [facility] Co de Phone Number [facility] * POCT Glucose (03/01/2015 6:57 AM EDT) Glucose, POC 94 60 - 199 mg/dL [facility] Comment: Supplemental ranges: <140 mg/dL before meals <180 mg/dL all other times of the day Blood specimen (specimen) 03/01/2015 6:57 AM EDT 03/01/2015 6:57 AM EDT Sanju Marcos MD POINT OF CARE TEST O RDERAKELIN Performing Organization Address [facility] Co de Phone Number [facility] * Antibody screen (02/28/2015 8:27 PM EDT) Ab Screen Interp Negative [facility] Expires at [id number] on: [id number] [facility] Blood specimen (specimen) 02/28/2015 8:27 PM EDT 02/28/2015 8:27 PM EDT Narrative Resulting Agency Comment Spec In Lab Sanju Marcos MD BLOOD BANK LAB ORDER CEDRICK Performing Organization Address City/[facility] Co de Phone Number [facility] * ABO/Rh Typing (02/28/2015 8:27 PM EDT) ABORH Type A Pos [facility] Blood specimen (specimen) 02/28/2015 8:27 PM EDT 02/28/2015 8:27 PM EDT Narrative Resulting Agency Comment Spec In Lab Sanju Marcos MD BLOOD BANK LAB ORDER CEDRICK Performing Organization Address [facility] Co de Phone Number [facility] * POCT Glucose (02/28/2015 8:00 PM EDT) Glucose, POC 135 60 - 199 mg/dL [facility] Comment: Supplemental ranges: <140 mg/dL before meals <180 mg/dL all other times of the day Blood specimen (specimen) 02/28/2015 8:00 PM EDT 02/28/2015 8:00 PM EDT Sanju Marcos MD POINT OF CARE TEST O JAMILAH Performing Organization Address [facility] de Phone Number [facility] * POCT Glucose (02/28/2015 2:34 PM EDT) Glucose, POC 111 60 - 199 mg/dL [facility] Comment: Supplemental ranges: <140 mg/dL before meals <180 mg/dL all other times of the day Blood specimen (specimen) 02/28/2015 2:34 PM EDT 02/28/2015 2:34 PM EDT Sanju Marcos MD POINT OF CARE TEST O JAMILAH Performing Organization Address [facility] Co de Phone Number [facility] * POCT Glucose (02/28/2015 9:07 AM EDT) Glucose, POC 107 60 - 199 mg/dL [facility] Comment: Supplemental ranges: <140 mg/dL before meals <180 mg/dL all other times of the day Blood specimen (specimen) 02/28/2015 9:07 AM EDT 02/28/2015 9:07 AM EDT Sajnu Marcos MD POINT OF CARE TEST O JAMILAH Performing Organization Address [facility] de Phone Number [facility] * POCT Glucose (02/28/2015 6:25 AM EDT) Glucose, POC 84 60 - 199 mg/dL [facility] Comment: Supplemental ranges: <140 mg/dL before meals <180 mg/dL all other times of the day Blood specimen (specimen) 02/28/2015 6:25 AM EDT 02/28/2015 6:25 AM EDT Sanju Marcos MD POINT OF CARE TEST O JAMILAH Performing Organization Address [facility] Phone Number [facility] * POCT Glucose (02/27/2015 7:46 PM EDT) Glucose, POC 110 60 - 199 mg/dL [facility] Comment: Supplemental ranges: <140 mg/dL before meals <180 mg/dL all other times of the day Blood specimen (specimen) 02/27/2015 7:46 PM EDT 02/27/2015 7:46 PM EDT Sanju Marcos MD POINT OF CARE TEST O JAMILAH Performing Organization Address [facility] de Phone Number [facility] * POCT Glucose (02/27/2015 9:06 AM EDT) Glucose, POC 103 60 - 199 mg/dL [facility] Comment: Supplemental ranges: <140 mg/dL before meals <180 mg/dL all other times of the day Blood specimen (specimen) 02/27/2015 9:06 AM EDT 02/27/2015 9:06 AM EDT Sanju Marcos MD POINT OF CARE TEST O RDERABLES Performing Organization Address [facility] Co de Phone Number [facility] * POCT Glucose (02/27/2015 6:17 AM EDT) Glucose, POC 83 60 - 199 mg/dL [facility] Comment: Supplemental ranges: <140 mg/dL before meals <180 mg/dL all other times of the day Blood specimen (specimen) 02/27/2015 6:17 AM EDT 02/27/2015 6:17 AM EDT Sanju Marcos MD POINT OF CARE TEST O RDERAKELIN Performing Organization Address [facility] Co de Phone Number [facility] * POCT Glucose (02/26/2015 7:25 PM EDT) Glucose, POC 111 60 - 199 mg/dL [facility] Comment: Supplemental ranges: <140 mg/dL before meals <180 mg/dL all other times of the day Blood specimen (specimen) 02/26/2015 7:25 PM EDT 02/26/2015 7:25 PM EDT Sanju Marcos MD POINT OF CARE TEST O JAMILAH Performing Organization Address [facility] de Phone Number [facility] * POCT Glucose (02/26/2015 2:05 PM EDT) Glucose, POC 138 60 - 199 mg/dL [facility] Comment: Supplemental ranges: <140 mg/dL before meals <180 mg/dL all other times of the day Blood specimen (specimen) 02/26/2015 2:05 PM EDT 02/26/2015 2:05 PM EDT Sanju Marcos MD POINT OF CARE TEST O RDERAKELIN Performing Organization Address [facility] Co de Phone Number [facility] * POCT Glucose (02/26/2015 9:42 AM EDT) Glucose, POC 116 60 - 199 mg/dL [facility] Comment: Supplemental ranges: <140 mg/dL before meals <180 mg/dL all other times of the day Blood specimen (specimen) 02/26/2015 9:42 AM EDT 02/26/2015 9:42 AM EDT Sanju Marcos MD POINT OF CARE TEST O RDERAKELIN Performing Organization Address [facility] de Phone Number [facility] * POCT Glucose (02/26/2015 6:39 AM EDT) Glucose, POC 89 60 - 199 mg/dL [facility] Comment: Supplemental ranges: <140 mg/dL before meals <180 mg/dL all other times of the day Blood specimen (specimen) 02/26/2015 6:39 AM EDT 02/26/2015 6:39 AM EDT Sanju Marcos MD POINT OF CARE TEST O RDERAKELIN Performing Organization Address [facility] de Phone Number [facility] * Antibody screen (02/25/2015 9:05 PM EDT) Ab Screen Interp Negative [facility] Expires at 2359 on: [id number] [facility]ITALZIENAB Blood specimen (specimen) 02/25/2015 9:05 PM EDT 02/25/2015 9:26 PM EDT Narrative Resulting Agency Comment Spec In Lab Sanju Marcos MD BLOOD BANK LAB ORDER CEDRICK Performing Organization Address [facility] de Phone Number [facility] * ABO/Rh Typing (02/25/2015 9:05 PM EDT) ABORH Type A Pos [facility]DIGN[facility] Blood specimen (specimen) 02/25/2015 9:05 PM EDT 02/25/2015 9:26 PM EDT Narrative Resulting Agency Comment Spec In Lab Sanju Marcos MD BLOOD BANK LAB ORDER CEDRICK Performing Organization Address [facility] Co de Phone Number [facility] * POCT Glucose (02/25/2015 7:23 PM EDT) Glucose, POC 158 60 - 199 mg/dL [facility] Comment: Supplemental ranges: <140 mg/dL before meals <180 mg/dL all other times of the day Blood specimen (specimen) 02/25/2015 7:23 PM EDT 02/25/2015 7:23 PM EDT Sanju Marcos MD POINT OF CARE TEST O RDRACHEAL Performing Organization Address [facility] Co de Phone Number [facility] * POCT Glucose (02/25/2015 2:35 PM EDT) Glucose, POC 164 60 - 199 mg/dL [facility] Comment: Supplemental ranges: <140 mg/dL before meals <180 mg/dL all other times of the day Blood specimen (specimen) 02/25/2015 2:35 PM EDT 02/25/2015 2:35 PM EDT Sanju Marcos MD POINT OF CARE TEST O JAMILAH Performing Organization Address [facility] de Phone Number [facility] * POCT Glucose (02/25/2015 9:43 AM EDT) Glucose, POC 115 60 - 199 mg/dL [facility] Comment: Supplemental ranges: <140 mg/dL before meals <180 mg/dL all other times of the day Blood specimen (specimen) 02/25/2015 9:43 AM EDT 02/25/2015 9:43 AM EDT Sanju Marcos MD POINT OF CARE TEST O JAMILAH Performing Organization Address [facility] Co de Phone Number [facility] * POCT Glucose (02/25/2015 7:05 AM EDT) Glucose, POC 91 60 - 199 mg/dL [facility] Comment: Supplemental ranges: <140 mg/dL before meals <180 mg/dL all other times of the day Blood specimen (specimen) 02/25/2015 7:05 AM EDT 02/25/2015 7:05 AM EDT Sanju Marcos MD POINT OF CARE TEST O JAMILAH Performing Organization Address [facility] de Phone Number [facility] * POCT Glucose (02/24/2015 7:59 PM EDT) [facility] Glucose, POC 123 60 - 199 mg/dL [facility] Comment: Supplemental ranges: <140 mg/dL before meals <180 mg/dL all other times of the day Blood specimen (specimen) 02/24/2015 7:59 PM EDT 02/24/2015 7:59 PM EDT Sanju Marcos MD POINT OF CARE TEST O JAMILAH Performing Organization Address [facility] de Phone Number [facility] * US OB follow up evaluation (02/24/2015 2:11 PM EDT) Anatomical Region Laterality Modality Pelvis, Abdomen Ultrasound 02/24/2015 2:11 PM EDT Narrative 02/24/2015 2:21 PM EDT OBSTETRICS REPORT ?(Signed Final 02/24/2015 02:19 ? pm) Patient Info ID #: ? [id number] ?: ??[birth year] (29 yrs)(F) Name: ? MARTINEZ RICHARDSON ?Visit Date: 02/24/2015 02:07 pm Performed By Performed By: ?Rene Bryan RDMS Attending: ? Shayla FOY, Irvin Paz Referred By: ? VINICIUS MACK MD Service(s) Provided ??UOBFOL - Efw - Growth - Irene - [phone] ? [id number] Indications ??29yo at 35+5wga w/ GDMA2 admitted ??for chronic abruption Evaluation Num Of Fetuses: ? 1 Heart ? 161 Rate(bpm): Cardiac Activity: ?? Observed, normal rhythm Presentation: ? Cephalic Placenta: ? Anterior P. Cord Insertion: ??Within Normal Limits Amniotic Fluid BRIDGET FV: ?Normal BRIDGET Sum: ? 14.5 ?cm ? Larg Pckt: ? 5.6 ??cm RUQ: ?? 2.4 ? cm ?LUQ: ?? 3.5 ?cm RLQ: ?? 3.0 ? cm ?LLQ: ?? 5.6 ?cm -------- Biometry -------- BPD: ?88.0 ??mm ?G. Age: ?? 35w 4d ?59 ??% HC: ?318.0 ??mm ?G. Age: ?? 35w 6d ?26 ??% AC: ?313.0 ??mm ?G. Age: ?? 35w 1d ?52 ??% FL: ? 71.0 ??mm ?G. Age: ?? 36w 3d ?69 ??% HUM: ?65.0 ??mm ?G. Age: ?? 37w 5d ?> 95 ??% CI: ? 76.82 ??% ? 70 - 86 FL/HC: ? 22.3 ??% ? 20.1 - 22.3 HC/AC: ? 1.02 ?0.93 - 1.11 FL/BPD: ?80.7 ??% ? 71 - 87 FL/AC: ? 22.7 ??% ? 20 - 24 Est. FW: ?2728 ?? gm ?6 lb ?71 ??% Gestational Age Clinical ERIC: ??35w 3d ?ERIC: ?? 03/28/15 U/S Today: ? 35w 5d ?ERIC: ?? 03/26/15 Best: ?35w 3d ?? Det. By: ??Clinical ERIC ? ERIC: ?? 03/28/15 ------- Anatomy ------- Cranium: ?Visualized Cavum: ?Visualized Ventricles: ? Visualized Choroid Plexus: ? Visualized Nuchal Fold: ?Not evaluated at this gestational age Heart: ?4-chamber view appears normal Diaphragm: ?Visualized Stomach: ?Visualized Abdomen: ?Within Normal Limits Cord Vessels: ? 3-vessels- WNL Kidneys: ?Visualized Bladder: ?Visualized Upper ? Limited views Extremities: Lower ? Limited views Extremities: Doppler - Uterine Artery Right S/D Ratio: ? RI: ?PI: ?%Tile Left S/D Ratio: ?RI: ?PI: ?%Tile Cervix Uterus Adnexa Left Ovary Not visualized Right Ovary Not visualized Impression 3rd Trimester Summary Single intrauterine with a gestational age of 35w 3d based on Clincal ERIC. Composite age based on the current ultrasound alone is 35w 5d. Estimated weight corresponds to the 71th percentile for 35w 3d. Current growth parameters are consistent indicating normal growth. Amniotic fluid volume is Normal, BRIDGET = 14.5 cm, MVP = 5.6 cm Anatomical survey is limited due to the late gestational age. There is an equivical small residual subchorionic hemorrhage at the inferior margin of the placenta. If present it is smaller than on prior ultrasound. Interval growth is normal. I ??viewed the images and agree with the above interpretation. ? Irvin Mcguire MD Electronically Signed Final Report ?? 02/24/2015 02:19 pm Procedure Note Irvin Mcguire MD - 02/24/2015 OBSTETRICS REPORT (Signed Final 02/24/2015 02:19 pm) Patient Info ID #: [id number] : [birth year] (29 yrs)(F) Name: MARTINEZ RICHARDSON Visit Date: 02/24/2015 02:07 pm Performed By Performed By: Rene Bryan RDMS Attending: Irvin Mcguire MD Referred By: VINICIUS MACK MD Service(s) Provided UOBFOL - Efw - Growth - Irene - [phone] [id number] Indications 29yo at 35+5wga w/ GDMA2 admitted for chronic abruption Evaluation Num Of Fetuses: 1 Heart 161 Rate(bpm): Cardiac Activity: Observed, normal rhythm Presentation: Cephalic Placenta: Anterior P. Cord Insertion: Within Normal Limits Amniotic Fluid BRIDGET FV: Normal BRIDGET Sum: 14.5 cm Larg Pckt: 5.6 cm RUQ: 2.4 cm LUQ: 3.5 cm RLQ: 3.0 cm LLQ: 5.6 cm -------- Biometry -------- BPD: 88.0 mm G. Age: 35w 4d 59 % HC: 318.0 mm G. Age: 35w 6d 26 % AC: 313.0 mm G. Age: 35w 1d 52 % FL: 71.0 mm G. Age: 36w 3d 69 % HUM: 65.0 mm G. Age: 37w 5d > 95 % CI: 76.82 % 70 - 86 FL/HC: 22.3 % 20.1 - 22.3 HC/AC: 1.02 0.93 - 1.11 FL/BPD: 80.7 % 71 - 87 FL/AC: 22.7 % 20 - 24 Est. FW: 2728 gm 6 lb 71 % Gestational Age Clinical ERIC: 35w 3d ERIC: 03/28/15 U/S Today: 35w 5d ERIC: 03/26/15 Best: 35w 3d Det. By: Clinical ERIC ERIC: 03/28/15 ------- Anatomy ------- Cranium: Visualized Cavum: Visualized Ventricles: Visualized Choroid Plexus: Visualized Nuchal Fold: Not evaluated at this gestational age Heart: 4-chamber view appears normal Diaphragm: Visualized Stomach: Visualized Abdomen: Within Normal Limits Cord Vessels: 3-vessels- WNL Kidneys: Visualized Bladder: Visualized Upper Limited views Extremities: Lower Limited views Extremities: Doppler - Uterine Artery Right S/D Ratio: RI: PI: %Tile Left S/D Ratio: RI: PI: %Tile Cervix Uterus Adnexa Left Ovary Not visualized Right Ovary Not visualized Impression 3rd Trimester Summary Single intrauterine with a gestational age of 35w 3d based on Clincal ERIC. Composite age based on the current ultrasound alone is 35w 5d. Estimated weight corresponds to the 71th percentile for 35w 3d. Current growth parameters are consistent indicating normal growth. Amniotic fluid volume is Normal, BRIDGET = 14.5 cm, MVP = 5.6 cm Anatomical survey is limited due to the late gestational age. There is an equivical small residual subchorionic hemorrhage at the inferior margin of the placenta. If present it is smaller than on prior ultrasound. Interval growth is normal. I viewed the images and agree with the above interpretation. Irvin Mcguire MD Electronically Signed Final Report 02/24/2015 02:19 pm Sanju Marcos MD IMG US OB ORDERABLES * POCT Glucose (02/24/2015 1:22 PM EDT) Glucose, POC 126 60 - 199 mg/dL [facility] Comment: Supplemental ranges: <140 mg/dL before meals <180 mg/dL all other times of the day Blood specimen (specimen) 02/24/2015 1:22 PM EDT 02/24/2015 1:22 PM EDT Sanju Marcos MD POINT OF CARE TEST O JAMILAH Performing Organization Address [facility] de Phone Number [facility] * POCT Glucose (02/24/2015 9:15 AM EDT) Glucose, POC 124 60 - 199 mg/dL [facility] Comment: Supplemental ranges: <140 mg/dL before meals <180 mg/dL all other times of the day Blood specimen (specimen) 02/24/2015 9:15 AM EDT 02/24/2015 9:15 AM EDT Sanju Marcos MD POINT OF CARE TEST O JAMILAH Performing Organization Address [facility] de Phone Number [facility] * POCT Glucose (02/24/2015 6:37 AM EDT) Glucose, POC 81 60 - 199 mg/dL [facility] Comment: Supplemental ranges: <140 mg/dL before meals <180 mg/dL all other times of the day Blood specimen (specimen) 02/24/2015 6:37 AM EDT 02/24/2015 6:37 AM EDT Sanju Marcos MD POINT OF CARE TEST O RDERABLES Performing Organization Address [facility] de Phone Number [facility] * Group B Streptococcus Screen (02/23/2015 8:56 PM EDT) GBS Screen Neg [facility] Pooled specimen from vaginal introitus and rectal swab (specimen) 02/23/2015 8:56 PM EDT 02/23/2015 9:15 PM EDT Comment:Penicillin Allergy?- >Yes Narrative Resulting Agency Comment Spec In Lab Sanju Marcos MD MICROBIOLOGY - GENER AL ORDERABLES Performing Organization Address [facility] de Phone Number [facility] * Group B Strep Culture Screen (02/23/2015 8:56 PM EDT) Group B Streptococcus Culture ? Patient Name: MARTINEZ RICHARDSON ? Ordered By: SANJU MARCOS ? MR#: [id number] ?LOC: ??BP ? /Sex: ??1985 (29 years), ? Female ? PROCEDURE: Group B Streptococcus Culture ?SOURCE: Vag/Rectal ? COLLECTED: 02/23/2015 20:56 ?FREE TEXT SOURCE: Penicillin Allergy?->Yes ? STARTED: 02/23/2015 21:15 ? FINAL REPORT ? Final Report ? Verified: 015 14:54 ? No Group B Streptococci isolated ? PRELIMINARY REPORT ? Preliminary Report ? Verified: 14:45 ? Culture in progress ? [facility] Pooled specimen from vaginal introitus and rectal swab (specimen) 02/23/2015 8:56 PM EDT 02/23/2015 9:15 PM EDT Comment:PENICILLIN ALLERGY?- >YES Narrative Resulting Agency Comment Spec In Lab Sanju Marcos MD MICROBIOLOGY - GENER AL ORDERABLES Performing Organization Address [facility] Phone Number [facility] * POCT Glucose (02/23/2015 7:34 PM EDT) Glucose, POC 140 60 - 199 mg/dL [facility] Comment: Supplemental ranges: <140 mg/dL before meals <180 mg/dL all other times of the day Blood specimen (specimen) 02/23/2015 7:34 PM EDT 02/23/2015 7:34 PM EDT Sanju Marcos MD POINT OF CARE TEST O RDERABLES Performing Organization Address [facility] de Phone Number [facility] * POCT Glucose (02/23/2015 2:14 PM EDT) Glucose, POC 108 60 - 199 mg/dL [facility] Comment: Supplemental ranges: <140 mg/dL before meals <180 mg/dL all other times of the day Blood specimen (specimen) 02/23/2015 2:14 PM EDT 02/23/2015 2:14 PM EDT Sanju Marcos MD POINT OF CARE TEST O JAMILAH Performing Organization Address [facility] de Phone Number [facility] * POCT Glucose (02/23/2015 9:31 AM EDT) Glucose, POC 139 60 - 199 mg/dL [facility] Comment: Supplemental ranges: <140 mg/dL before meals <180 mg/dL all other times of the day Blood specimen (specimen) 02/23/2015 9:31 AM EDT 02/23/2015 9:31 AM EDT Sanju Marcos MD POINT OF CARE TEST O JAMILAH Performing Organization Address [facility] Phone Number [facility] * POCT Glucose (02/23/2015 6:47 AM EDT) Glucose, POC 94 60 - 199 mg/dL [facility] Comment: Supplemental ranges: <140 mg/dL before meals <180 mg/dL all other times of the day Blood specimen (specimen) 02/23/2015 6:47 AM EDT 02/23/2015 6:47 AM EDT Sanju Marcos MD POINT OF CARE TEST O JAMILAH Performing Organization Address [facility] Phone Number [facility] * POCT urine dipstick (02/23/2015) POC Sp Iliamna not obtained 1.002 - 1.030 POC pH, UA 7 5.0 - 8.5 POC Leuk, UA negative Negative - Negative POC Nitrite, UA negative Negative - Negative POC Protein, UA negative Negative - Negative mg/dL POC Glucose, UA negative Normal - Normal mg/dL POC Ketone, UA negative Negative - Negative POC Urobil, UA negative 0.2 - 1.0 mg/dL POC Bili, UA negative Negative - Negative POC Blood, UA ++ Negative - Negative pravin/uL 02/23/2015 Sanju Marcos MD POINT OF CARE TEST O RDERABLES * Antibody screen (02/22/2015 9:14 PM EDT) Ab Screen Interp Negative [facility] Expires at 2359 on: [id number] [facility] Blood specimen (specimen) 02/22/2015 9:14 PM EDT 02/22/2015 9:14 PM EDT Narrative Resulting Agency Comment Spec In Lab Sanju Marcos MD BLOOD BANK LAB ORDER CEDRICK Performing Organization Address [facility] de Phone Number [facility] * ABO/Rh Typing (02/22/2015 9:14 PM EDT) ABORH Type A Pos [facility] Blood specimen (specimen) 02/22/2015 9:14 PM EDT 02/22/2015 9:14 PM EDT Narrative Resulting Agency Comment Spec In Lab Sanju Marcos MD BLOOD BANK LAB ORDER CEDRICK Performing Organization Address [facility] Co de Phone Number [facility] * POCT Glucose (02/22/2015 6:55 PM EDT) Glucose, POC 134 60 - 199 mg/dL [facility] Comment: Supplemental ranges: <140 mg/dL before meals <180 mg/dL all other times of the day Blood specimen (specimen) 02/22/2015 6:55 PM EDT 02/22/2015 6:55 PM EDT Sanju Marcos MD POINT OF CARE TEST O RDERABLES Performing Organization Address [facility] de Phone Number [facility] * POCT Glucose (02/22/2015 1:34 PM EDT) Glucose, POC 164 60 - 199 mg/dL [facility] Comment: Supplemental ranges: <140 mg/dL before meals <180 mg/dL all other times of the day Blood specimen (specimen) 02/22/2015 1:34 PM EDT 02/22/2015 1:34 PM EDT Sanju Marcos MD POINT OF CARE TEST O JAMILAH Performing Organization Address [facility] Phone Number [facility] * POCT Glucose (02/22/2015 9:01 AM EDT) Glucose, POC 142 60 - 199 mg/dL [facility] Comment: Supplemental ranges: <140 mg/dL before meals <180 mg/dL all other times of the day Blood specimen (specimen) 02/22/2015 9:01 AM EDT 02/22/2015 9:01 AM EDT Sanju Marcos MD POINT OF CARE TEST O JAMILAH Performing Organization Address [facility] de Phone Number [facility] [employer] [facility] * POCT Glucose (02/22/2015 6:24 AM EDT) Glucose, POC 92 60 - 199 mg/dL [facility] Comment: Supplemental ranges: <140 mg/dL before meals <180 mg/dL all other times of the day Blood specimen (specimen) 02/22/2015 6:24 AM EDT 02/22/2015 6:24 AM EDT Sanju Marcos MD POINT OF CARE TEST O JAMILAH Performing Organization Address [facility] de Phone Number [facility] J[facility]DIGN[facility]ITALI[facility] * POCT Glucose (02/21/2015 7:14 PM EDT) Glucose, POC 147 60 - 199 mg/dL [facility] Comment: Supplemental ranges: <140 mg/dL before meals <180 mg/dL all other times of the day Blood specimen (specimen) 02/21/2015 7:14 PM EDT 02/21/2015 7:14 PM EDT Sanju Marcos MD POINT OF CARE TEST O RDERAKELIN Performing Organization Address [facility] de Phone Number [facility] * POCT Glucose (02/21/2015 1:10 PM EDT) Glucose, POC 144 60 - 199 mg/dL [facility] Comment: Supplemental ranges: <140 mg/dL before meals <180 mg/dL all other times of the day Blood specimen (specimen) 02/21/2015 1:10 PM EDT 02/21/2015 1:10 PM EDT Sanju Marcos MD POINT OF CARE TEST O RDERAKELIN Performing Organization Address [facility] Phone Number [facility] * POCT Glucose (02/21/2015 9:04 AM EDT) Glucose, POC 124 60 - 199 mg/dL [facility] Comment: Supplemental ranges: <140 mg/dL before meals <180 mg/dL all other times of the day Blood specimen (specimen) 02/21/2015 9:04 AM EDT 02/21/2015 9:04 AM EDT Sanju Marcos MD POINT OF CARE TEST O RDRACHEAL Performing Organization Address [facility] de Phone Number [facility] * POCT Glucose (02/21/2015 6:42 AM EDT) Glucose, POC 76 60 - 199 mg/dL [facility] Comment: Supplemental ranges: <140 mg/dL before meals <180 mg/dL all other times of the day Blood specimen (specimen) 02/21/2015 6:42 AM EDT 02/21/2015 6:42 AM EDT Sanju aMrcos MD POINT OF CARE TEST O RDERAKELIN Performing Organization Address [facility] Co de Phone Number [facility] * POCT Glucose (02/20/2015 6:52 PM EDT) Glucose, POC 125 60 - 199 mg/dL [facility] Comment: Supplemental ranges: <140 mg/dL before meals <180 mg/dL all other times of the day Blood specimen (specimen) 02/20/2015 6:52 PM EDT 02/20/2015 6:52 PM EDT Sanju Marcos MD POINT OF CARE TEST O JAMILAH Performing Organization Address [facility] de Phone Number [facility] * POCT Glucose (02/20/2015 2:22 PM EDT) Glucose, POC 135 60 - 199 mg/dL [facility] Comment: Supplemental ranges: <140 mg/dL before meals <180 mg/dL all other times of the day Blood specimen (specimen) 02/20/2015 2:22 PM EDT 02/20/2015 2:22 PM EDT Sanju Marcos MD POINT OF CARE TEST O JAMILAH Performing Organization Address [facility] de Phone Number [facility] * POCT Glucose (02/20/2015 9:16 AM EDT) Glucose, POC 110 60 - 199 mg/dL [facility] Comment: Supplemental ranges: <140 mg/dL before meals <180 mg/dL all other times of the day Blood specimen (specimen) 02/20/2015 9:16 AM EDT 02/20/2015 9:16 AM EDT Sanju Marcos MD POINT OF CARE TEST O JAMILAH Performing Organization Address [facility] de Phone Number [facility] * POCT Glucose (02/20/2015 6:37 AM EDT) Glucose, POC 85 60 - 199 mg/dL [facility] Comment: Supplemental ranges: <140 mg/dL before meals <180 mg/dL all other times of the day Blood specimen (specimen) 02/20/2015 6:37 AM EDT 02/20/2015 6:37 AM EDT Sanju Marcos MD POINT OF CARE TEST O RDERABLES Performing Organization Address [place]/[facility]/ZIP Co de Phone Number [facility] * POCT Glucose (02/19/2015 7:27 PM EDT) Glucose, POC 124 60 - 199 mg/dL [facility] Comment: Supplemental ranges: <140 mg/dL before meals <180 mg/dL all other times of the day Blood specimen (specimen) 02/19/2015 7:27 PM EDT 02/19/2015 7:27 PM EDT Sanju Marcos MD POINT OF CARE TEST O RDERABLES Performing Organization Address [facility]/ZIP Co de Phone Number [facility] * Antibody screen (02/19/2015 5:45 PM EDT) Ab Screen Interp Negative [facility] Expires at 2359 on: [id number] [facility] Blood specimen (specimen) 02/19/2015 5:45 PM EDT 02/19/2015 6:07 PM EDT Narrative Resulting Agency Comment Spec In Lab Griselda Hampton MD BLOOD BANK LAB ORDER CEDRICK Performing Organization Address [facility] Co de Phone Number [facility] * ABO/Rh Typing (02/19/2015 5:45 PM EDT) ABORH Type A Pos [facility] Blood specimen (specimen) 02/19/2015 5:45 PM EDT 02/19/2015 6:07 PM EDT Narrative Resulting Agency Comment Spec In Lab Griselda Hampton MD BLOOD BANK LAB ORDER CEDRICK [facility] * POCT Glucose (02/19/2015 2:44 PM EDT) Glucose, POC 151 60 - 199 mg/dL [facility] Comment: Supplemental ranges: <140 mg/dL before meals <180 mg/dL all other times of the day Blood specimen (specimen) 02/19/2015 2:44 PM EDT 02/19/2015 2:44 PM EDT Sanju Marcos MD POINT OF CARE TEST O JAMILAH Performing Organization Address [facility] de Phone Number [facility] * POCT Glucose (02/19/2015 10:32 AM EDT) Glucose, POC 141 60 - 199 mg/dL [facility] Comment: Supplemental ranges: <140 mg/dL before meals <180 mg/dL all other times of the day Blood specimen (specimen) 02/19/2015 10:32 AM EDT 02/19/2015 10:32 AM EDT Sanju Marcos MD POINT OF CARE TEST O JAMILAH Performing Organization Address [facility] de Phone Number [facility] * POCT Glucose (02/19/2015 7:04 AM EDT) Glucose, POC 99 60 - 199 mg/dL [facility] Comment: Supplemental ranges: <140 mg/dL before meals <180 mg/dL all other times of the day Blood specimen (specimen) 02/19/2015 7:04 AM EDT 02/19/2015 7:04 AM EDT Sanju Marcos MD POINT OF CARE TEST O JAMILAH Performing Organization Address [facility] de Phone Number [facility] * POCT Glucose (02/18/2015 7:13 PM EDT) Glucose, POC 102 60 - 199 mg/dL [facility] Comment: Supplemental ranges: <140 mg/dL before meals <180 mg/dL all other times of the day Blood specimen (specimen) 02/18/2015 7:13 PM EDT 02/18/2015 7:13 PM EDT Sanju Marcos MD POINT OF CARE TEST O JAMILAH Performing Organization Address [facility] de Phone Number [facility] * POCT Glucose (02/18/2015 1:45 PM EDT) Glucose, POC 115 60 - 199 mg/dL [facility] Comment: Supplemental ranges: <140 mg/dL before meals <180 mg/dL all other times of the day Blood specimen (specimen) 02/18/2015 1:45 PM EDT 02/18/2015 1:45 PM EDT Sanju Marcos MD POINT OF CARE TEST O JAMILAH Performing Organization Address [facility] de Phone Number [facility] * POCT Glucose (02/18/2015 10:05 AM EDT) Glucose, POC 111 60 - 199 mg/dL [facility] Comment: Supplemental ranges: <140 mg/dL before meals <180 mg/dL all other times of the day Blood specimen (specimen) 02/18/2015 10:05 AM EDT 02/18/2015 10:05 AM EDT Sanju Marcos MD POINT OF CARE TEST O JAMILAH Performing Organization Address [facility] de Phone Number [facility] * POCT Glucose (02/18/2015 7:45 AM EDT) Glucose, POC 95 60 - 199 mg/dL [facility] Comment: Supplemental ranges: <140 mg/dL before meals <180 mg/dL all other times of the day Blood specimen (specimen) 02/18/2015 7:45 AM EDT 02/18/2015 7:45 AM EDT Sanju Marcos MD POINT OF CARE TEST O JAMILAH Performing Organization Address [facility] de Phone Number [facility] * POCT Glucose (02/17/2015 7:02 PM EDT) Glucose, POC 150 60 - 199 mg/dL [facility] Comment: Supplemental ranges: <140 mg/dL before meals <180 mg/dL all other times of the day Blood specimen (specimen) 02/17/2015 7:02 PM EDT 02/17/2015 7:02 PM EDT Sanju Marcos MD POINT OF CARE TEST O JAMILAH Performing Organization Address [facility] de Phone Number [facility] * POCT Glucose (02/17/2015 2:03 PM EDT) Glucose, POC 133 60 - 199 mg/dL [facility] Comment: Supplemental ranges: <140 mg/dL before meals <180 mg/dL all other times of the day Blood specimen (specimen) 02/17/2015 2:03 PM EDT 02/17/2015 2:03 PM EDT Sanju Marcos MD POINT OF CARE TEST O JAMILAH Performing Organization Address [facility] de Phone Number [facility] * POCT Glucose (02/17/2015 8:38 AM EDT) Glucose, POC 176 60 - 199 mg/dL [facility] Comment: Supplemental ranges: <140 mg/dL before meals <180 mg/dL all other times of the day Blood specimen (specimen) 02/17/2015 8:38 AM EDT 02/17/2015 8:38 AM EDT Sanju Marcos MD POINT OF CARE TEST O JAMILAH Performing Organization Address [facility] de Phone Number [facility] * POCT Glucose (02/17/2015 8:36 AM EDT) Glucose, POC 186 60 - 199 mg/dL [facility] Comment: Supplemental ranges: <140 mg/dL before meals <180 mg/dL all other times of the day Blood specimen (specimen) 02/17/2015 8:36 AM EDT 02/17/2015 8:36 AM EDT Sanju Marcos MD POINT OF CARE TEST O JAMILAH Performing Organization Address [facility] de Phone Number [facility] * POCT Glucose (02/17/2015 7:04 AM EDT) Glucose, POC 91 60 - 199 mg/dL [facility] Comment: Supplemental ranges: <140 mg/dL before meals <180 mg/dL all other times of the day Blood specimen (specimen) 02/17/2015 7:04 AM EDT 02/17/2015 7:04 AM EDT Sanju Marcos MD POINT OF CARE TEST O JAMILAH Performing Organization Address [facility] de Phone Number [facility] * POCT Glucose (02/16/2015 7:01 PM EDT) Glucose, POC 111 60 - 199 mg/dL [facility] Comment: Supplemental ranges: <140 mg/dL before meals <180 mg/dL all other times of the day Blood specimen (specimen) 02/16/2015 7:01 PM EDT 02/16/2015 7:01 PM EDT Sanju Marcos MD POINT OF CARE TEST O JAMILAH Performing Organization Address [facility] de Phone Number [facility] * Antibody screen (02/16/2015 3:47 PM EDT) Ab Screen Interp Negative [facility] Expires at 2359 on: [id number] [facility] Blood specimen (specimen) 02/16/2015 3:47 PM EDT 02/16/2015 4:09 PM EDT Narrative Resulting Agency Comment Spec In Lab Sanju Marcos MD BLOOD BANK LAB ORDER CEDRICK Performing Organization Address [facility]/ZIP Co de Phone Number [facility] * ABO/Rh Typing (02/16/2015 3:47 PM EDT) ABORH Type A Pos [facility] Blood specimen (specimen) 02/16/2015 3:47 PM EDT 02/16/2015 4:09 PM EDT Narrative Resulting Agency Comment Spec In Lab Sanju Marcos MD BLOOD BANK LAB ORDER CEDRICK Performing Organization Address [facility] Co de Phone Number [facility] * POCT Glucose (02/16/2015 2:06 PM EDT) Glucose, POC 143 60 - 199 mg/dL [facility] Comment: Supplemental ranges: <140 mg/dL before meals <180 mg/dL all other times of the day Blood specimen (specimen) 02/16/2015 2:06 PM EDT 02/16/2015 2:06 PM EDT Sanju Marcos MD POINT OF CARE TEST O JAMILAH Performing Organization Address [facility] Co de Phone Number [facility] * POCT Glucose (02/16/2015 9:07 AM EDT) Glucose, POC 135 60 - 199 mg/dL [facility] Comment: Supplemental ranges: <140 mg/dL before meals <180 mg/dL all other times of the day Blood specimen (specimen) 02/16/2015 9:07 AM EDT 02/16/2015 9:07 AM EDT Sanju Marcos MD POINT OF CARE TEST O RDRACHEAL Performing Organization Address [facility] Co de Phone Number [facility] * POCT Glucose (02/16/2015 6:18 AM EDT) Glucose, POC 85 60 - 199 mg/dL [facility] Comment: Supplemental ranges: <140 mg/dL before meals <180 mg/dL all other times of the day Blood specimen (specimen) 02/16/2015 6:18 AM EDT 02/16/2015 6:18 AM EDT Sanju Marcos MD POINT OF CARE TEST O JAMILAH Performing Organization Address [facility] de Phone Number [facility] * POCT Glucose (02/15/2015 7:07 PM EDT) Glucose, POC 129 60 - 199 mg/dL [facility] Comment: Supplemental ranges: <140 mg/dL before meals <180 mg/dL all other times of the day Blood specimen (specimen) 02/15/2015 7:07 PM EDT 02/15/2015 7:07 PM EDT Sanju Marcos MD POINT OF CARE TEST O JAMILAH Performing Organization Address [facility] de Phone Number [facility] * POCT Glucose (02/15/2015 2:15 PM EDT) Glucose, POC 138 60 - 199 mg/dL [facility] Comment: Supplemental ranges: <140 mg/dL before meals <180 mg/dL all other times of the day Blood specimen (specimen) 02/15/2015 2:15 PM EDT 02/15/2015 2:15 PM EDT Sanju Marcos MD POINT OF CARE TEST O JAMILAH Performing Organization Address [facility] de Phone Number [facility] * POCT Glucose (02/15/2015 9:19 AM EDT) Glucose, POC 136 60 - 199 mg/dL [facility] Comment: Supplemental ranges: <140 mg/dL before meals <180 mg/dL all other times of the day Blood specimen (specimen) 02/15/2015 9:19 AM EDT 02/15/2015 9:19 AM EDT Sanju Marcos MD POINT OF CARE TEST O RDERAKELIN Performing Organization Address [facility]/ZIP Co de Phone Number [facility] * POCT Glucose (02/15/2015 6:21 AM EDT) Glucose, POC 91 60 - 199 mg/dL [facility] Comment: Supplemental ranges: <140 mg/dL before meals <180 mg/dL all other times of the day Blood specimen (specimen) 02/15/2015 6:21 AM EDT 02/15/2015 6:21 AM EDT Sanju Marcos MD POINT OF CARE TEST O JAMILAH Performing Organization Address [facility] Co de Phone Number [facility] * POCT Glucose (02/14/2015 7:20 PM EDT) Glucose, POC 147 60 - 199 mg/dL [facility] Comment: Supplemental ranges: <140 mg/dL before meals <180 mg/dL all other times of the day Blood specimen (specimen) 02/14/2015 7:20 PM EDT 02/14/2015 7:20 PM EDT Sanju Marcos MD POINT OF CARE TEST O JAMILAH Performing Organization Address [facility] Co de Phone Number [facility] * POCT Glucose (02/14/2015 1:10 PM EDT) Glucose, POC 134 60 - 199 mg/dL [facility] Comment: Supplemental ranges: <140 mg/dL before meals <180 mg/dL all other times of the day Blood specimen (specimen) 02/14/2015 1:10 PM EDT 02/14/2015 1:10 PM EDT Sanju Marcos MD POINT OF CARE TEST O RDRACHEAL Performing Organization Address [facility]/ZIP Co de Phone Number [facility] * POCT Glucose (02/14/2015 10:03 AM EDT) Glucose, POC 99 60 - 199 mg/dL [facility] Comment: Supplemental ranges: <140 mg/dL before meals <180 mg/dL all other times of the day Blood specimen (specimen) 02/14/2015 10:03 AM EDT 02/14/2015 10:03 AM EDT Sanju Marcos MD POINT OF CARE TEST O JAMILAH Performing Organization Address [facility] Co de Phone Number [facility] * POCT Glucose (02/14/2015 7:03 AM EDT) Glucose, POC 89 60 - 199 mg/dL [facility] Comment: Supplemental ranges: <140 mg/dL before meals <180 mg/dL all other times of the day Blood specimen (specimen) 02/14/2015 7:03 AM EDT 02/14/2015 7:03 AM EDT Sanju Marcos MD POINT OF CARE TEST O JAMILAH Performing Organization Address [facility] de Phone Number [facility] * POCT Glucose (02/13/2015 7:16 PM EDT) Glucose, POC 125 60 - 199 mg/dL [facility] Comment: Supplemental ranges: <140 mg/dL before meals <180 mg/dL all other times of the day Blood specimen (specimen) 02/13/2015 7:16 PM EDT 02/13/2015 7:16 PM EDT Sanju Marcos MD POINT OF CARE TEST O JAMILAH Performing Organization Address [facility] de Phone Number [facility] * Antibody screen (02/13/2015 3:22 PM EDT) Ab Screen Interp Negative [facility] Expires at 2359 on: [id number] [facility] Blood specimen (specimen) 02/13/2015 3:22 PM EDT 02/13/2015 3:22 PM EDT Narrative Resulting Agency Comment Spec In Lab Sanju Marcos MD BLOOD BANK LAB ORDER CEDRICK Performing Organization Address [facility]/ZIP Co de Phone Number [facility] * ABO/Rh Typing (02/13/2015 3:22 PM EDT) ABORH Type A Pos [facility] Blood specimen (specimen) 02/13/2015 3:22 PM EDT 02/13/2015 3:22 PM EDT Narrative Resulting Agency Comment Spec In Lab Sanju Marcos MD BLOOD BANK LAB ORDER CEDRICK Performing Organization Address [facility] Co de Phone Number [facility] * POCT Glucose (02/13/2015 1:12 PM EDT) Glucose, POC 123 60 - 199 mg/dL [facility] Comment: Supplemental ranges: <140 mg/dL before meals <180 mg/dL all other times of the day Blood specimen (specimen) 02/13/2015 1:12 PM EDT 02/13/2015 1:12 PM EDT Sanju Marcos MD POINT OF CARE TEST O RDERABLES Performing Organization Address [facility] Co de Phone Number [facility] * POCT Glucose (02/13/2015 10:07 AM EDT) Glucose, POC 128 60 - 199 mg/dL [facility] Comment: Supplemental ranges: <140 mg/dL before meals <180 mg/dL all other times of the day Blood specimen (specimen) 02/13/2015 10:07 AM EDT 02/13/2015 10:07 AM EDT Sanju Marcos MD POINT OF CARE TEST O RDERABLES Performing Organization Address [facility]/ZIP Co de Phone Number [facility] * POCT Glucose (02/13/2015 8:19 AM EDT) Glucose, POC 110 60 - 199 mg/dL [facility] Comment: Supplemental ranges: <140 mg/dL before meals <180 mg/dL all other times of the day Blood specimen (specimen) 02/13/2015 8:19 AM EDT 02/13/2015 8:19 AM EDT Sanju Marcos MD POINT OF CARE TEST O JAMILAH Performing Organization Address [facility] de Phone Number [facility] * POCT Glucose (02/12/2015 7:46 PM EDT) Glucose, POC 104 60 - 199 mg/dL [facility] Comment: Supplemental ranges: <140 mg/dL before meals <180 mg/dL all other times of the day Blood specimen (specimen) 02/12/2015 7:46 PM EDT 02/12/2015 7:46 PM EDT Sanju Marcos MD POINT OF CARE TEST O JAMILAH Performing Organization Address [facility] de Phone Number [facility] * POCT Glucose (02/12/2015 2:11 PM EDT) Glucose, POC 115 60 - 199 mg/dL [facility] Comment: Supplemental ranges: <140 mg/dL before meals <180 mg/dL all other times of the day Blood specimen (specimen) 02/12/2015 2:11 PM EDT 02/12/2015 2:11 PM EDT Sanju Marcos MD POINT OF CARE TEST O JAMILAH Performing Organization Address [facility] Co de Phone Number [facility] * POCT Glucose (02/12/2015 9:48 AM EDT) Glucose, POC 115 60 - 199 mg/dL [facility] Comment: Supplemental ranges: <140 mg/dL before meals <180 mg/dL all other times of the day Blood specimen (specimen) 02/12/2015 9:48 AM EDT 02/12/2015 9:48 AM EDT Sanju Marcos MD POINT OF CARE TEST O RDRACHEAL Performing Organization Address [facility] de Phone Number [facility] * POCT Glucose (02/12/2015 8:06 AM EDT) Glucose, POC 95 60 - 199 mg/dL [facility] Comment: Supplemental ranges: <140 mg/dL before meals <180 mg/dL all other times of the day Blood specimen (specimen) 02/12/2015 8:06 AM EDT 02/12/2015 8:06 AM EDT Sanju Marcos MD POINT OF CARE TEST O JAMILAH Performing Organization Address [facility] Phone Number [facility] * POCT Glucose (02/11/2015 7:47 PM EDT) Glucose, POC 115 60 - 199 mg/dL [facility] Comment: Supplemental ranges: <140 mg/dL before meals <180 mg/dL all other times of the day Blood specimen (specimen) 02/11/2015 7:47 PM EDT 02/11/2015 7:47 PM EDT Sanju Marcos MD POINT OF CARE TEST O JAMILAH Performing Organization Address [facility] de Phone Number [facility] * POCT Glucose (02/11/2015 9:42 AM EDT) Glucose, POC 153 60 - 199 mg/dL [facility] Comment: Supplemental ranges: <140 mg/dL before meals <180 mg/dL all other times of the day Blood specimen (specimen) 02/11/2015 9:42 AM EDT 02/11/2015 9:42 AM EDT Sanju Marcos MD POINT OF CARE TEST O JAMILAH Performing Organization Address [facility] de Phone Number [facility] * POCT Glucose (02/11/2015 6:33 AM EDT) Glucose, POC 90 60 - 199 mg/dL [facility] Comment: Supplemental ranges: <140 mg/dL before meals <180 mg/dL all other times of the day Blood specimen (specimen) 02/11/2015 6:33 AM EDT 02/11/2015 6:33 AM EDT Sanju Marcos MD POINT OF CARE TEST O RDERAKELIN Performing Organization Address [facility] Co de Phone Number [facility] * POCT Glucose (02/10/2015 7:49 PM EDT) Glucose, POC 121 60 - 199 mg/dL [facility] Comment: Supplemental ranges: <140 mg/dL before meals <180 mg/dL all other times of the day Blood specimen (specimen) 02/10/2015 7:49 PM EDT 02/10/2015 7:49 PM EDT Sanju Marcos MD POINT OF CARE TEST O JAMILAH Performing Organization Address [facility] Co de Phone Number [facility] * Antibody screen (02/10/2015 4:36 PM EDT) Ab Screen Interp Negative [facility] Expires at 2359 on: [id number] [facility] Blood specimen (specimen) 02/10/2015 4:36 PM EDT 02/10/2015 4:36 PM EDT Narrative Resulting Agency Comment Spec In Lab Sanju Marcos MD BLOOD BANK LAB ORDER CEDRICK Performing Organization Address [facility] Co de Phone Number [facility] * ABO/Rh Typing (02/10/2015 4:36 PM EDT) ABORH Type A Pos [facility] Blood specimen (specimen) 02/10/2015 4:36 PM EDT 02/10/2015 4:36 PM EDT Narrative Resulting Agency Comment Spec In Lab Sanju Marcos MD BLOOD BANK LAB ORDER CEDRICK Performing Organization Address [facility] de Phone Number [facility] * POCT Glucose (02/10/2015 10:05 AM EDT) Glucose, POC 146 60 - 199 mg/dL [facility] Comment: Supplemental ranges: <140 mg/dL before meals <180 mg/dL all other times of the day Blood specimen (specimen) 02/10/2015 10:05 AM EDT 02/10/2015 10:05 AM EDT Sanju Marcos MD POINT OF CARE TEST O RDERAKELIN Performing Organization Address [facility] Phone Number [facility] * POCT Glucose (02/10/2015 7:12 AM EDT) Glucose, POC 90 60 - 199 mg/dL [facility] Comment: Supplemental ranges: <140 mg/dL before meals <180 mg/dL all other times of the day Blood specimen (specimen) 02/10/2015 7:12 AM EDT 02/10/2015 7:12 AM EDT Sanju Marcos MD POINT OF CARE TEST O RDERAKELIN Performing Organization Address [facility] de Phone Number [facility] * POCT Glucose (02/09/2015 8:14 PM EDT) Glucose, POC 129 60 - 199 mg/dL [facility] Comment: Supplemental ranges: <140 mg/dL before meals <180 mg/dL all other times of the day Blood specimen (specimen) 02/09/2015 8:14 PM EDT 02/09/2015 8:14 PM EDT Sanju Marcos MD POINT OF CARE TEST O RDERAKELIN Performing Organization Address [facility] de Phone Number [facility] * POCT Glucose (02/09/2015 1:32 PM EDT) Glucose, POC 144 60 - 199 mg/dL [facility] Comment: Supplemental ranges: <140 mg/dL before meals <180 mg/dL all other times of the day Blood specimen (specimen) 02/09/2015 1:32 PM EDT 02/09/2015 1:32 PM EDT Sanju Marcos MD POINT OF CARE TEST O JAMILAH Performing Organization Address [facility] Co de Phone Number [facility] * POCT urine dipstick (02/09/2015 12:24 PM EDT) POC pH, UA 7 5.0 - 8.5 POC Leuk, UA moderate Negative - Negative POC Nitrite, UA negative Negative - Negative POC Protein, UA 100+ Negative - Negative mg/dL POC Glucose, UA normal Normal - Normal mg/dL POC Ketone, UA negative Negative - Negative POC Blood, UA 250 Negative - Negative pravin/uL 02/09/2015 12:2 4 PM EDT Sanju Marcos MD POINT OF CARE TEST O RDERAKELIN * POCT Glucose (02/09/2015 9:10 AM EDT) Glucose, POC 147 60 - 199 mg/dL [facility] Comment: Supplemental ranges: <140 mg/dL before meals <180 mg/dL all other times of the day Blood specimen (specimen) 02/09/2015 9:10 AM EDT 02/09/2015 9:10 AM EDT Sanju Marcos MD POINT OF CARE TEST O JAMILAH Performing Organization Address [facility] Co de Phone Number [facility] * POCT Glucose (02/09/2015 6:22 AM EDT) Glucose, POC 80 60 - 199 mg/dL [facility] Comment: Supplemental ranges: <140 mg/dL before meals <180 mg/dL all other times of the day Blood specimen (specimen) 02/09/2015 6:22 AM EDT 02/09/2015 6:22 AM EDT Sanju Marcos MD POINT OF CARE TEST O JAMILAH Performing Organization Address [facility] Phone Number [facility] * POCT Glucose (02/08/2015 7:03 PM EDT) Glucose, POC 144 60 - 199 mg/dL [facility] Comment: Supplemental ranges: <140 mg/dL before meals <180 mg/dL all other times of the day Blood specimen (specimen) 02/08/2015 7:03 PM EDT 02/08/2015 7:03 PM EDT Sanju Marcos MD POINT OF CARE TEST O JAMILAH Performing Organization Address [facility] Phone Number [facility] * POCT Glucose (02/08/2015 2:17 PM EDT) Glucose, POC 131 60 - 199 mg/dL [facility] Comment: Supplemental ranges: <140 mg/dL before meals <180 mg/dL all other times of the day Blood specimen (specimen) 02/08/2015 2:17 PM EDT 02/08/2015 2:17 PM EDT Sanju Marcos MD POINT OF CARE TEST O JAMILAH Performing Organization Address [facility] Phone Number [facility] * POCT Glucose (02/08/2015 9:41 AM EDT) Glucose, POC 127 60 - 199 mg/dL [facility] Comment: Supplemental ranges: <140 mg/dL before meals <180 mg/dL all other times of the day Blood specimen (specimen) 02/08/2015 9:41 AM EDT 02/08/2015 9:41 AM EDT Sanju Marcos MD POINT OF CARE TEST O RDRACHEAL Performing Organization Address [facility]/ZIP Co de Phone Number [facility] * POCT Glucose (02/08/2015 6:41 AM EDT) Glucose, POC 108 60 - 199 mg/dL [facility] Comment: Supplemental ranges: <140 mg/dL before meals <180 mg/dL all other times of the day Blood specimen (specimen) 02/08/2015 6:41 AM EDT 02/08/2015 6:41 AM EDT Sanju Marcos MD POINT OF CARE TEST O JAMILAH Performing Organization Address [facility] de Phone Number [facility] * POCT Glucose (02/07/2015 7:04 PM EDT) Glucose, POC 144 60 - 199 mg/dL [facility] Comment: Supplemental ranges: <140 mg/dL before meals <180 mg/dL all other times of the day Blood specimen (specimen) 02/07/2015 7:04 PM EDT 02/07/2015 7:04 PM EDT Sanju Marcos MD POINT OF CARE TEST O JAMILAH Performing Organization Address [facility] Co de Phone Number [facility] * Antibody screen (02/07/2015 4:25 PM EDT) Ab Screen Interp Negative [facility] Expires at [id number] on: [id number] [facility] Blood specimen (specimen) 02/07/2015 4:25 PM EDT 02/07/2015 4:47 PM EDT Narrative Resulting Agency Comment Spec In Lab Sanju Marcos MD BLOOD BANK LAB ORDER CEDRICK Performing Organization Address [facility] Co de Phone Number [facility] * ABO/Rh Typing (02/07/2015 4:25 PM EDT) ABORH Type A Pos [facility] Blood specimen (specimen) 02/07/2015 4:25 PM EDT 02/07/2015 4:47 PM EDT Narrative Resulting Agency Comment Spec In Lab Sanju Marcos MD BLOOD BANK LAB ORDER CEDRICK Performing Organization Address [facility] Phone Number [facility] * POCT Glucose (02/07/2015 2:16 PM EDT) Glucose, POC 106 60 - 199 mg/dL [facility] Comment: Supplemental ranges: <140 mg/dL before meals <180 mg/dL all other times of the day Blood specimen (specimen) 02/07/2015 2:16 PM EDT 02/07/2015 2:16 PM EDT Sanju Marcos MD POINT OF CARE TEST O RDERABLES Performing Organization Address [facility] Phone Number [facility] * POCT Glucose (02/07/2015 9:04 AM EDT) Glucose, POC 112 60 - 199 mg/dL [facility] Comment: Supplemental ranges: <140 mg/dL before meals <180 mg/dL all other times of the day Blood specimen (specimen) 02/07/2015 9:04 AM EDT 02/07/2015 9:04 AM EDT Sanju Marcos MD POINT OF CARE TEST O RDERAKELIN Performing Organization Address [facility] de Phone Number [facility] * POCT Glucose (02/07/2015 6:20 AM EDT) Glucose, POC 89 60 - 199 mg/dL [facility] Comment: Supplemental ranges: <140 mg/dL before meals <180 mg/dL all other times of the day Blood specimen (specimen) 02/07/2015 6:20 AM EDT 02/07/2015 6:20 AM EDT Sanju Marcos MD POINT OF CARE TEST O RDERAKELIN Performing Organization Address [facility]/ZIP Co de Phone Number [facility] * POCT Glucose (02/06/2015 8:30 PM EDT) Glucose, POC 137 60 - 199 mg/dL [facility] Comment: Supplemental ranges: <140 mg/dL before meals <180 mg/dL all other times of the day Blood specimen (specimen) 02/06/2015 8:30 PM EDT 02/06/2015 8:30 PM EDT Sanju Marcso MD POINT OF CARE TEST O RDRACHEAL Performing Organization Address [facility] Co de Phone Number [facility] * POCT Glucose (02/06/2015 2:31 PM EDT) Glucose, POC 112 60 - 199 mg/dL [facility] JETENNIUM Comment: Supplemental ranges: <140 mg/dL before meals <180 mg/dL all other times of the day Blood specimen (specimen) 02/06/2015 2:31 PM EDT 02/06/2015 2:31 PM EDT Sanju Marcos MD POINT OF CARE TEST O RDRACHEAL Performing Organization Address [facility] Co de Phone Number [facility] * (ABNORMAL) Differential, Automated (02/06/2015 12:40 PM EDT) Neutrophil % 67.3 % CERNER MILLENNIUM Neutrophil Absolute 6.53(H) 1.50 - 6.30 x10(3)/mc L CERNER MILLENNIUM Lymph % 22.0 % CERNER MILLENNIUM Lymphocytes Abs 2.1 1.0 - 3.6 x10(3)/mc L CERNER MILLENNIUM Monocyte % 8.5 % CERNER MILLENNIUM Monocyte Abs 0.8 0.2 - 1.0 x10(3)/mc L CERNER MILLENNIUM Eos % 0.8 % CERNER MILLENNIUM Eosinophils Abs 0.1 0.0 - 0.5 x10(3)/mc L CERNER MILLENNIUM Basophil % 0.2 % CERNER MILLENNIUM Baso Absolute 0.0 0.0 - 0.2 x10(3)/mc L CERNER MILLENNIUM Immature Gran % 1.20 % [facility]ERN ER MILLENNIUM Comment: Immature granulocytes(IG's)percentage and absolute count will include metamyelocytes, myelocytes, and promyelocytes. Blood smears from CBCs yielding IG's will be scanned manually for concordance. If this scan disagrees with the automated IG or if promyelocytes are noted, a manual differential will be performed. Immature Gran Absolute 0.12(H) 0.00 - 0.05 x10(3)/mc L CERNER MILLENNIUM Blood specimen (specimen) 02/06/2015 12:40 PM EDT 02/06/2015 12:54 PM EDT Narrative Resulting Agency Comment Spec In Lab Sanju Marcos MD HEMATOLOGY ORDERABLE S [facility] * (ABNORMAL) Hemogram (02/06/2015 12:40 PM EDT) White Blood Cell 9.7 4.0 - 10.0 x10(3)/mc L CERNER MILLENNIUM Red Blood Cell 3.71(L) 3.93 - 5.22 x10(6)/mc L CERNER MILLENNIUM Hemoglobin 11.9 11.2 - 15.7 gm/dL CERNER MILLENNIUM Hematocrit 35.5 34.0 - 45.0 % CERNER MILLENNIUM Mean Cell Volume 95.7(H) 79.0 - 94.0 fL CERNER MILLENNIUM Mean Cell Hemoglobin 32.1 26.6 - 32.2 pg CERNER MILLENNIUM Mean Cell Hemoglobin Concentration 33.5 32.0 - 36.5 gm/dL CERNER MILLENNIUM Platelet 176 145 - 370 x10(3)/mc L CERNER MILLENNIUM RDW Standard Deviation 50.5(H) 35.0 - 46.0 fL CERNER MILLENNIUM RDW coefficient of variation 14.6(H) 10.9 - 14.4 % CERNER MILLENNIUM Mean Platelet Volume 9.5 9.0 - 12.0 fL CERNER MILLENNIUM Blood specimen (specimen) 02/06/2015 12:40 PM EDT 02/06/2015 12:54 PM EDT Narrative Resulting Agency Comment Spec In Lab Sanju Marcos MD HEMATOLOGY ORDERABLE S [facility] * US OB follow up evaluation (02/06/2015 11:31 AM EDT) Anatomical Region Laterality Modality Pelvis, Abdomen Ultrasound 02/06/2015 11:3 1 AM EDT Narrative 02/06/2015 12:48 PM EDT OBSTETRICS REPORT ?(Signed Final 02/06/2015 12:48 ? pm) Patient Info ID #: ? [id number] ?: ??[birth year] (29 yrs)(F) Name: ? MARTINEZ RICHARDSON ?Visit Date: 02/06/2015 11:24 am Performed By Performed By: ?Barbara Ruiz RDMS Attending: ? Jatin FOY, Schuyler ??Ghada Referred By: ? ZEE PUCKETT MD Service(s) Provided ??UOBFOL - Efw - Growth - Irene - [id number] ? [id number] Indications ??follow-up growth Evaluation Num Of Fetuses: ? 1 Heart ? 159 Rate(bpm): Cardiac Activity: ?? Observed, normal rhythm Presentation: ? Cephalic Placenta: ? Anterior Amniotic Fluid BRIDGET FV: ?Normal BRIDGET Sum: ? 15.58 ?? cm ? Larg Pckt: ?5.63 ??cm RUQ: ?? 5.19 ?cm ?LUQ: ?? 3.66 ?? cm RLQ: ?? 5.63 ?cm ?LLQ: ?? 1.1 ?cm Comment: ?subchorionic hemorrhage seen measuring ? 5.5x1.1x2.8cm at the inferior portion of the placenta -------- Biometry -------- BPD: ?82.0 ??mm ?G. Age: ?? 33w 0d ?46 ??% HC: ?304.0 ??mm ?G. Age: ?? 33w 6d ?38 ??% AC: ?292.0 ??mm ?G. Age: ?? 33w 1d ?60 ??% FL: ? 66.0 ??mm ?G. Age: ?? 34w 0d ?69 ??% HUM: ?59.0 ??mm ?G. Age: ?? 34w 1d ?85 ??% CI: ? 73.46 ??% ? 70 - 86 FL/HC: ? 21.7 ??% ? 19.9 - 21.5 HC/AC: ? 1.04 ?0.96 - 1.11 FL/BPD: ?80.5 ??% ? 71 - 87 FL/AC: ? 22.6 ??% ? 20 - 24 Est. FW: ?2202 ?? gm ?? 4 lb 14 oz ? 79 ??% Gestational Age Clinical ERIC: ??32w 6d ?ERIC: ?? 03/28/15 U/S Today: ? 33w 4d ?ERIC: ?? 03/23/15 Best: ?32w 6d ?? Det. By: ??Clinical ERIC ? ERIC: ?? 03/28/15 ------- Anatomy ------- Cranium: ?Visualized Cavum: ?Visualized Ventricles: ? Visualized Nuchal Fold: ?Not evaluated at this gestational age Face: ? Limited views Heart: ?4-chamber view appears normal RVOT: ? Visualized LVOT: ? Visualized Stomach: ?Visualized Abdomen: ?Within Normal Limits Cord Vessels: ? 3-vessels- WNL Kidneys: ?Visualized Bladder: ?Visualized Upper ? Limited views Extremities: Lower ? Limited views Extremities: Other: ??Nasal Bone: Present Doppler - Uterine Artery Right S/D Ratio: ? RI: ?PI: ?%Tile Left S/D Ratio: ?RI: ?PI: ?%Tile Cervix Uterus Adnexa Left Ovary Not visualized Right Ovary Not visualized Impression 3rd Trimester Summary Single intrauterine with a gestational age of 32w 6d based on clinical ERIC. Composite age based on the current ultrasound alone is 33w 4d. Estimated weight corresponds to the 79th percentile for 32w 6d. Current growth parameters are consistent indicating normal growth. Amniotic fluid volume is Normal, BRIDGET = 15.58 cm, MVP = 5.63 cm Subchorionic hemorrhage seen measuring 5.5x1.1x2.8cm at the inferior portion of the placenta. Anatomical survey is limited due to the late gestational age. I ??viewed the images and agree with the above interpretation. ?Schuyler Steiner MD Electronically Signed Final Report ?? 02/06/2015 12:48 pm Procedure Note Schuyler Steiner MD - 02/06/2015 OBSTETRICS REPORT (Signed Final 02/06/2015 12:48 pm) Patient Info ID #: [id number] : [birth year] (29 yrs)(F) Name: MARTINEZ RICHARDSON Visit Date: 02/06/2015 11:24 am Performed By Performed By: Barbara Ruiz RDMS Attending: Schuyler Steiner MD Referred By: ZEE PUCKETT MD Service(s) Provided UOBFOL - Efw - Growth - Irene - [phone] [id number] Indications follow-up growth Evaluation Num Of Fetuses: 1 Heart 159 Rate(bpm): Cardiac Activity: Observed, normal rhythm Presentation: Cephalic Placenta: Anterior Amniotic Fluid BRIDGET FV: Normal BRIDGET Sum: 15.58 cm Larg Pckt: 5.63 cm RUQ: 5.19 cm LUQ: 3.66 cm RLQ: 5.63 cm LLQ: 1.1 cm Comment: subchorionic hemorrhage seen measuring 5.5x1.1x2.8cm at the inferior portion of the placenta -------- Biometry -------- BPD: 82.0 mm G. Age: 33w 0d 46 % HC: 304.0 mm G. Age: 33w 6d 38 % AC: 292.0 mm G. Age: 33w 1d 60 % FL: 66.0 mm G. Age: 34w 0d 69 % HUM: 59.0 mm G. Age: 34w 1d 85 % CI: 73.46 % 70 - 86 FL/HC: 21.7 % 19.9 - 21.5 HC/AC: 1.04 0.96 - 1.11 FL/BPD: 80.5 % 71 - 87 FL/AC: 22.6 % 20 - 24 Est. FW: 2202 gm 4 lb 14 oz 79 % Gestational Age Clinical ERIC: 32w 6d ERIC: 03/28/15 U/S Today: 33w 4d ERIC: 03/23/15 Best: 32w 6d Det. By: Clinical ERIC ERIC: 03/28/15 ------- Anatomy ------- Cranium: Visualized Cavum: Visualized Ventricles: Visualized Nuchal Fold: Not evaluated at this gestational age Face: Limited views Heart: 4-chamber view appears normal RVOT: Visualized LVOT: Visualized Stomach: Visualized Abdomen: Within Normal Limits Cord Vessels: 3-vessels- WNL Kidneys: Visualized Bladder: Visualized Upper Limited views Extremities: Lower Limited views Extremities: Other: Nasal Bone: Present Doppler - Uterine Artery Right S/D Ratio: RI: PI: %Tile Left S/D Ratio: RI: PI: %Tile Cervix Uterus Adnexa Left Ovary Not visualized Right Ovary Not visualized Impression 3rd Trimester Summary Single intrauterine with a gestational age of 32w 6d based on clinical ERIC. Composite age based on the current ultrasound alone is 33w 4d. Estimated weight corresponds to the 79th percentile for 32w 6d. Current growth parameters are consistent indicating normal growth. Amniotic fluid volume is Normal, BRIDGET = 15.58 cm, MVP = 5.63 cm Subchorionic hemorrhage seen measuring 5.5x1.1x2.8cm at the inferior portion of the placenta. Anatomical survey is limited due to the late gestational age. I viewed the images and agree with the above interpretation. Schuyler tSeiner MD Electronically Signed Final Report 02/06/2015 12:48 pm Sanju Marcos MD IMG US OB ORDERABLES * POCT Glucose (02/06/2015 10:03 AM EDT) Glucose, POC 143 60 - 199 mg/dL [facility] Comment: Supplemental ranges: <140 mg/dL before meals <180 mg/dL all other times of the day Blood specimen (specimen) 02/06/2015 10:03 AM EDT 02/06/2015 10:03 AM EDT Sanju Marcos MD POINT OF CARE TEST O RDRACHEAL Performing Organization Address [facility] de Phone Number [facility] * POCT Glucose (02/06/2015 7:27 AM EDT) Glucose, POC 90 60 - 199 mg/dL [facility] Comment: Supplemental ranges: <140 mg/dL before meals <180 mg/dL all other times of the day Blood specimen (specimen) 02/06/2015 7:27 AM EDT 02/06/2015 7:27 AM EDT Sanju Marcos MD POINT OF CARE TEST O JAMILAH Performing Organization Address [facility] Co de Phone Number [facility] * POCT Glucose (02/05/2015 7:14 PM EDT) Glucose, POC 144 60 - 199 mg/dL [facility] Comment: Supplemental ranges: <140 mg/dL before meals <180 mg/dL all other times of the day Blood specimen (specimen) 02/05/2015 7:14 PM EDT 02/05/2015 7:14 PM EDT Sanju Marcos MD POINT OF CARE TEST O RDERAKELIN Performing Organization Address [facility] Co de Phone Number [facility] * POCT Glucose (02/05/2015 2:11 PM EDT) Glucose, POC 128 60 - 199 mg/dL [facility] Comment: Supplemental ranges: <140 mg/dL before meals <180 mg/dL all other times of the day Blood specimen (specimen) 02/05/2015 2:11 PM EDT 02/05/2015 2:11 PM EDT Sanju Marcos MD POINT OF CARE TEST O JAMILAH Performing Organization Address [facility] de Phone Number [facility] * POCT Glucose (02/05/2015 10:01 AM EDT) Glucose, POC 127 60 - 199 mg/dL [facility] Comment: Supplemental ranges: <140 mg/dL before meals <180 mg/dL all other times of the day Blood specimen (specimen) 02/05/2015 10:01 AM EDT 02/05/2015 10:01 AM EDT Sanju Marcos MD POINT OF CARE TEST O RDRACHEAL Performing Organization Address [facility] de Phone Number [facility] * POCT Glucose (02/05/2015 6:58 AM EDT) Glucose, POC 99 60 - 199 mg/dL [facility] Comment: Supplemental ranges: <140 mg/dL before meals <180 mg/dL all other times of the day Blood specimen (specimen) 02/05/2015 6:58 AM EDT 02/05/2015 6:58 AM EDT Sanju Marcos MD POINT OF CARE TEST O RDERAKELIN Performing Organization Address [facility] Co de Phone Number [facility] * Antibody screen (02/04/2015 9:20 PM EDT) Ab Screen Interp Negative [facility] Expires at 2359 on: [id number] [facility] Blood specimen (specimen) 02/04/2015 9:20 PM EDT 02/04/2015 9:27 PM EDT Narrative Resulting Agency Comment Spec In Lab Sanju Marcos MD BLOOD BANK LAB ORDER CEDRICK Performing Organization Address [facility] Co de Phone Number [facility] * ABO/Rh Typing (02/04/2015 9:20 PM EDT) ABORH Type A Pos [facility] Blood specimen (specimen) 02/04/2015 9:20 PM EDT 02/04/2015 9:27 PM EDT Narrative Resulting Agency Comment Spec In Lab Sanju Marcos MD BLOOD BANK LAB ORDER CEDRICK Performing Organization Address [facility] de Phone Number [facility] * POCT Glucose (02/04/2015 7:03 PM EDT) Glucose, POC 109 60 - 199 mg/dL [facility] Comment: Supplemental ranges: <140 mg/dL before meals <180 mg/dL all other times of the day Blood specimen (specimen) 02/04/2015 7:03 PM EDT 02/04/2015 7:03 PM EDT Sanju Marcos MD POINT OF CARE TEST O RDERABLES Performing Organization Address [facility] Co de Phone Number [facility] * POCT Glucose (02/04/2015 2:15 PM EDT) Glucose, POC 137 60 - 199 mg/dL [facility] Comment: Supplemental ranges: <140 mg/dL before meals <180 mg/dL all other times of the day Blood specimen (specimen) 02/04/2015 2:15 PM EDT 02/04/2015 2:15 PM EDT Sanju Marcos MD POINT OF CARE TEST O RDRACHEAL Performing Organization Address [facility] Co de Phone Number [facility] * POCT Glucose (02/04/2015 9:50 AM EDT) Glucose, POC 137 60 - 199 mg/dL [facility] Comment: Supplemental ranges: <140 mg/dL before meals <180 mg/dL all other times of the day Blood specimen (specimen) 02/04/2015 9:50 AM EDT 02/04/2015 9:50 AM EDT Sanju Marcos MD POINT OF CARE TEST O JAMILAH Performing Organization Address [facility] de Phone Number [facility] * POCT Glucose (02/04/2015 7:05 AM EDT) Glucose, POC 85 60 - 199 mg/dL [facility] Comment: Supplemental ranges: <140 mg/dL before meals <180 mg/dL all other times of the day Blood specimen (specimen) 02/04/2015 7:05 AM EDT 02/04/2015 7:05 AM EDT Sanju Marcos MD POINT OF CARE TEST O JAMILAH Performing Organization Address [facility] de Phone Number [facility] * POCT Glucose (02/03/2015 8:08 PM EDT) Glucose, POC 123 60 - 199 mg/dL [facility] Comment: Supplemental ranges: <140 mg/dL before meals <180 mg/dL all other times of the day Blood specimen (specimen) 02/03/2015 8:08 PM EDT 02/03/2015 8:08 PM EDT Sanju Marcos MD POINT OF CARE TEST O RDRACHEAL Performing Organization Address [facility] Co de Phone Number [facility] * POCT Glucose (02/03/2015 1:52 PM EDT) Glucose, POC 130 60 - 199 mg/dL [facility] Comment: Supplemental ranges: <140 mg/dL before meals <180 mg/dL all other times of the day Blood specimen (specimen) 02/03/2015 1:52 PM EDT 02/03/2015 1:52 PM EDT Sanju Marcos MD POINT OF CARE TEST O JAMILAH Performing Organization Address [facility] de Phone Number [facility] * POCT Glucose (02/03/2015 9:43 AM EDT) Glucose, POC 148 60 - 199 mg/dL [facility] Comment: Supplemental ranges: <140 mg/dL before meals <180 mg/dL all other times of the day Blood specimen (specimen) 02/03/2015 9:43 AM EDT 02/03/2015 9:43 AM EDT Sanju Marcos MD POINT OF CARE TEST O JAMILAH Performing Organization Address [facility] de Phone Number [facility] * POCT Glucose (02/03/2015 6:52 AM EDT) Glucose, POC 86 60 - 199 mg/dL [facility] Comment: Supplemental ranges: <140 mg/dL before meals <180 mg/dL all other times of the day Blood specimen (specimen) 02/03/2015 6:52 AM EDT 02/03/2015 6:52 AM EDT Sanju Marcos MD POINT OF CARE TEST O JAMILAH Performing Organization Address [facility] de Phone Number [facility] * POCT Glucose (02/02/2015 8:37 PM EDT) Glucose, POC 127 60 - 199 mg/dL [facility] Comment: Supplemental ranges: <140 mg/dL before meals <180 mg/dL all other times of the day Blood specimen (specimen) 02/02/2015 8:37 PM EDT 02/02/2015 8:37 PM EDT Sanju Marcos MD POINT OF CARE TEST O RDRACHEAL Performing Organization Address [facility] de Phone Number [facility] * POCT Glucose (02/02/2015 2:22 PM EDT) Glucose, POC 183 60 - 199 mg/dL [facility] Comment: Supplemental ranges: <140 mg/dL before meals <180 mg/dL all other times of the day Blood specimen (specimen) 02/02/2015 2:22 PM EDT 02/02/2015 2:22 PM EDT Sanju Marcos MD POINT OF CARE TEST O JAMILAH Performing Organization Address [facility] Phone Number [facility] * POCT Glucose (02/02/2015 9:33 AM EDT) Glucose, POC 175 60 - 199 mg/dL [facility] Comment: Supplemental ranges: <140 mg/dL before meals <180 mg/dL all other times of the day Blood specimen (specimen) 02/02/2015 9:33 AM EDT 02/02/2015 9:33 AM EDT Sanju Marcos MD POINT OF CARE TEST O JAMILAH Performing Organization Address [facility] de Phone Number [facility] * POCT Glucose (02/02/2015 6:45 AM EDT) Glucose, POC 87 60 - 199 mg/dL [facility] Comment: Supplemental ranges: <140 mg/dL before meals <180 mg/dL all other times of the day Blood specimen (specimen) 02/02/2015 6:45 AM EDT 02/02/2015 6:45 AM EDT Sanju Marcos MD POINT OF CARE TEST O RDRACHEAL Performing Organization Address [facility] Co de Phone Number [facility] * Antibody screen (02/01/2015 10:10 PM EDT) Ab Screen Interp Negative [facility] Expires at 2359 on: [id number] [facility] Blood specimen (specimen) 02/01/2015 10:10 PM EDT 02/01/2015 10:36 PM EDT Narrative Resulting Agency Comment Spec In Lab Sanju Marcos MD BLOOD BANK LAB ORDER CEDRICK Performing Organization Address [facility] de Phone Number [facility] * ABO/Rh Typing (02/01/2015 10:10 PM EDT) ABORH Type A Pos [facility] Blood specimen (specimen) 02/01/2015 10:10 PM EDT 02/01/2015 10:36 PM EDT Narrative Resulting Agency Comment Spec In Lab Sanju Marcos MD BLOOD BANK LAB ORDER CEDRICK Performing Organization Address [facility] de Phone Number [facility] * POCT Glucose (02/01/2015 7:09 PM EDT) Glucose, POC 146 60 - 199 mg/dL [facility] Comment: Supplemental ranges: <140 mg/dL before meals <180 mg/dL all other times of the day Blood specimen (specimen) 02/01/2015 7:09 PM EDT 02/01/2015 7:09 PM EDT Sanju Marcos MD POINT OF CARE TEST O RDERABLES Performing Organization Address [facility] de Phone Number [facility] * POCT Glucose (02/01/2015 12:57 PM EDT) Glucose, POC 122 60 - 199 mg/dL [facility] Comment: Supplemental ranges: <140 mg/dL before meals <180 mg/dL all other times of the day Blood specimen (specimen) 02/01/2015 12:57 PM EDT 02/01/2015 12:57 PM EDT Sanju Marcos MD POINT OF CARE TEST O RDERAKELIN Performing Organization Address [facility] de Phone Number [facility] * POCT Glucose (02/01/2015 9:41 AM EDT) Glucose, POC 144 60 - 199 mg/dL [facility] Comment: Supplemental ranges: <140 mg/dL before meals <180 mg/dL all other times of the day Blood specimen (specimen) 02/01/2015 9:41 AM EDT 02/01/2015 9:41 AM EDT Sanju Marcos MD POINT OF CARE TEST O RDERAKELIN Performing Organization Address [facility] Phone Number [facility] * POCT Glucose (02/01/2015 6:58 AM EDT) Glucose, POC 85 60 - 199 mg/dL [facility] Comment: Supplemental ranges: <140 mg/dL before meals <180 mg/dL all other times of the day Blood specimen (specimen) 02/01/2015 6:58 AM EDT 02/01/2015 6:58 AM EDT Sanju Marcos MD POINT OF CARE TEST O RDRACHEAL Performing Organization Address [facility] de Phone Number [facility] * POCT Glucose (01/31/2015 7:04 PM EDT) Glucose, POC 151 60 - 199 mg/dL [facility] Comment: Supplemental ranges: <140 mg/dL before meals <180 mg/dL all other times of the day Blood specimen (specimen) 01/31/2015 7:04 PM EDT 01/31/2015 7:04 PM EDT Sanju Marcos MD POINT OF CARE TEST O RDERAKELIN Performing Organization Address [facility] Co de Phone Number [facility] * POCT Glucose (01/31/2015 2:09 PM EDT) Glucose, POC 144 60 - 199 mg/dL [facility] Comment: Supplemental ranges: <140 mg/dL before meals <180 mg/dL all other times of the day Blood specimen (specimen) 01/31/2015 2:09 PM EDT 01/31/2015 2:09 PM EDT Sanju Marcos MD POINT OF CARE TEST O JAMILAH Performing Organization Address [facility] de Phone Number [facility] * POCT Glucose (01/31/2015 9:32 AM EDT) Glucose, POC 150 60 - 199 mg/dL [facility] Comment: Supplemental ranges: <140 mg/dL before meals <180 mg/dL all other times of the day Blood specimen (specimen) 01/31/2015 9:32 AM EDT 01/31/2015 9:32 AM EDT Sanju Marcos MD POINT OF CARE TEST O JAMILAH Performing Organization Address [facility] de Phone Number [facility] * POCT Glucose (01/31/2015 6:36 AM EDT) Glucose, POC 87 60 - 199 mg/dL [facility] Comment: Supplemental ranges: <140 mg/dL before meals <180 mg/dL all other times of the day Blood specimen (specimen) 01/31/2015 6:36 AM EDT 01/31/2015 6:36 AM EDT Sanju Marcos MD POINT OF CARE TEST O JAMILAH Performing Organization Address [facility] de Phone Number [facility] * POCT Glucose (01/30/2015 8:12 PM EDT) Glucose, POC 120 60 - 199 mg/dL [facility] Comment: Supplemental ranges: <140 mg/dL before meals <180 mg/dL all other times of the day Blood specimen (specimen) 01/30/2015 8:12 PM EDT 01/30/2015 8:12 PM EDT Sanju Marcos MD POINT OF CARE TEST O JAMILAH Performing Organization Address [facility] de Phone Number [facility] * POCT Glucose (01/30/2015 3:16 PM EDT) Glucose, POC 121 60 - 199 mg/dL [facility] Comment: Supplemental ranges: <140 mg/dL before meals <180 mg/dL all other times of the day Blood specimen (specimen) 01/30/2015 3:16 PM EDT 01/30/2015 3:16 PM EDT Sanju Marcos MD POINT OF CARE TEST O JAMILAH Performing Organization Address [facility] de Phone Number [facility] * POCT Glucose (01/30/2015 10:09 AM EDT) Glucose, POC 161 60 - 199 mg/dL [facility] Comment: Supplemental ranges: <140 mg/dL before meals <180 mg/dL all other times of the day Blood specimen (specimen) 01/30/2015 10:09 AM EDT 01/30/2015 10:09 AM EDT Sanju Marcos MD POINT OF CARE TEST O JAMILAH Performing Organization Address [facility] de Phone Number [facility] * POCT Glucose (01/30/2015 6:55 AM EDT) Glucose, POC 105 60 - 199 mg/dL [facility] Comment: Supplemental ranges: <140 mg/dL before meals <180 mg/dL all other times of the day Blood specimen (specimen) 01/30/2015 6:55 AM EDT 01/30/2015 6:55 AM EDT Sanju Marcos MD POINT OF CARE TEST O RDERABLES Performing Organization Address [facility] Co de Phone Number [facility] * POCT Glucose (01/29/2015 7:25 PM EDT) Glucose, POC 146 60 - 199 mg/dL [facility] Comment: Supplemental ranges: <140 mg/dL before meals <180 mg/dL all other times of the day Blood specimen (specimen) 01/29/2015 7:25 PM EDT 01/29/2015 7:25 PM EDT Sanju Marcos MD POINT OF CARE TEST O RDERABLES Performing Organization Address [facility] Co de Phone Number [facility] * Antibody screen (01/29/2015 7:25 PM EDT) Ab Screen Interp Negative [facility] Expires at 2359 on: [id number] [facility] Blood specimen (specimen) 01/29/2015 7:25 PM EDT 01/29/2015 7:33 PM EDT Narrative Resulting Agency Comment Spec In Lab Sanju Marcos MD BLOOD BANK LAB ORDER CEDRICK Performing Organization Address [facility] de Phone Number [facility] * ABO/Rh Typing (01/29/2015 7:25 PM EDT) Pathologist [facility] ABORH Type A Pos [facility] Blood specimen (specimen) 01/29/2015 7:25 PM EDT 01/29/2015 7:33 PM EDT Narrative Resulting Agency Comment Spec In Lab Sanju Marcos MD BLOOD BANK LAB ORDER CEDRICK Performing Organization Address [facility] Co de Phone Number [facility] * POCT Glucose (01/29/2015 2:17 PM EDT) Glucose, POC 154 60 - 199 mg/dL [facility] Comment: Supplemental ranges: <140 mg/dL before meals <180 mg/dL all other times of the day Blood specimen (specimen) 01/29/2015 2:17 PM EDT 01/29/2015 2:17 PM EDT Sanju Marcos MD POINT OF CARE TEST O JAMILAH Performing Organization Address [facility] de Phone Number [facility] * POCT Glucose (01/29/2015 10:04 AM EDT) Glucose, POC 150 60 - 199 mg/dL [facility] Comment: Supplemental ranges: <140 mg/dL before meals <180 mg/dL all other times of the day Blood specimen (specimen) 01/29/2015 10:04 AM EDT 01/29/2015 10:04 AM EDT Sanju Marcos MD POINT OF CARE TEST O JAMILAH Performing Organization Address [facility] Phone Number [facility] * POCT Glucose (01/29/2015 6:07 AM EDT) Glucose, POC 93 60 - 199 mg/dL [facility] Comment: Supplemental ranges: <140 mg/dL before meals <180 mg/dL all other times of the day Blood specimen (specimen) 01/29/2015 6:07 AM EDT 01/29/2015 6:07 AM EDT Sanju Marcos MD POINT OF CARE TEST O JAMILAH Performing Organization Address [facility] de Phone Number [facility] * POCT Glucose (01/28/2015 7:09 PM EST) Glucose, POC 123 60 - 199 mg/dL [facility] Comment: Supplemental ranges: <140 mg/dL before meals <180 mg/dL all other times of the day Blood specimen (specimen) 01/28/2015 7:09 PM EST 01/28/2015 7:09 PM EST Sanju Marcos MD POINT OF CARE TEST O JAMILAH Performing Organization Address [facility] de Phone Number [facility] * POCT Glucose (01/28/2015 2:41 PM EST) Glucose, POC 149 60 - 199 mg/dL [facility] Comment: Supplemental ranges: <140 mg/dL before meals <180 mg/dL all other times of the day Blood specimen (specimen) 01/28/2015 2:41 PM EST 01/28/2015 2:41 PM EST Sanju Marcos MD POINT OF CARE TEST O RDERAKELIN Performing Organization Address [facility] de Phone Number [facility] * POCT Glucose (01/28/2015 10:24 AM EST) Glucose, POC 177 60 - 199 mg/dL [facility] Comment: Supplemental ranges: <140 mg/dL before meals <180 mg/dL all other times of the day Blood specimen (specimen) 01/28/2015 10:24 AM EST 01/28/2015 10:24 AM EST Sanju Marcos MD POINT OF CARE TEST O RDRACHEAL Performing Organization Address [facility] de Phone Number [facility] * POCT Glucose (01/28/2015 8:13 AM EST) Glucose, POC 89 60 - 199 mg/dL [facility] Comment: Supplemental ranges: <140 mg/dL before meals <180 mg/dL all other times of the day Blood specimen (specimen) 01/28/2015 8:13 AM EST 01/28/2015 8:13 AM EST Sanju Marcos MD POINT OF CARE TEST O RDERAKELIN Performing Organization Address [facility] de Phone Number [facility] * POCT Glucose (01/27/2015 7:37 PM EST) Glucose, POC 131 60 - 199 mg/dL [facility] Comment: Supplemental ranges: <140 mg/dL before meals <180 mg/dL all other times of the day Blood specimen (specimen) 01/27/2015 7:37 PM EST 01/27/2015 7:37 PM EST Sanju Marcos MD POINT OF CARE TEST O RDRACHEAL Performing Organization Address [facility] Phone Number [facility] * POCT Glucose (01/27/2015 2:35 PM EST) Glucose, POC 129 60 - 199 mg/dL [facility] Comment: Supplemental ranges: <140 mg/dL before meals <180 mg/dL all other times of the day Blood specimen (specimen) 01/27/2015 2:35 PM EST 01/27/2015 2:35 PM EST Sanju Marcos MD POINT OF CARE TEST O JAMILAH Performing Organization Address [facility] Phone Number [facility] * POCT Glucose (01/27/2015 11:19 AM EST) Glucose, POC 135 60 - 199 mg/dL [facility] Comment: Supplemental ranges: <140 mg/dL before meals <180 mg/dL all other times of the day Blood specimen (specimen) 01/27/2015 11:19 AM EST 01/27/2015 11:19 AM EST Sanju Marcos MD POINT OF CARE TEST O RDERAKELIN Performing Organization Address [facility] Phone Number [facility] * (ABNORMAL) Differential, Automated (01/27/2015 10:45 AM EST) Neutrophil % 69.1 % [facility] Neutrophil Absolute 6.69(H) 1.50 - 6.30 x10(3)/mc L [facility] MILLENNIUM Lymph % 21.4 % [facility] MILLENNIUM Lymphocytes Abs 2.1 1.0 - 3.6 x10(3)/mc L [facility] MILLENNI[facility] Monocyte % 7.5 % [facility] MILLENNIUM Monocyte Abs 0.7 0.2 - 1.0 x10(3)/mc L [facility] MILLENNIUM Eos % 0.8 % [facility] MILLENNIUM Eosinophils Abs 0.1 0.0 - 0.5 x10(3)/mc L [facility] MILLENNIUM Basophil % 0.2 % [facility] MILLENNIUM Baso Absolute 0.0 0.0 - 0.2 x10(3)/mc L [facility] MILLENNIUM Immature Gran % 1.00 % CERN ER MILLENNIUM Comment: Immature granulocytes(IG's)percentage and absolute count will include metamyelocytes, myelocytes, and promyelocytes. Blood smears from CBCs yielding IG's will be scanned manually for concordance. If this scan disagrees with the automated IG or if promyelocytes are noted, a manual differential will be performed. Immature Gran Absolute 0.10(H) 0.00 - 0.05 x10(3)/mc L [facility] MILLENNIUM Blood specimen (specimen) 01/27/2015 10:45 AM EST 01/27/2015 11:06 AM EST Narrative Resulting Agency Comment Spec In Lab Sanju Marcos MD HEMATOLOGY ORDERABLE S [facility] * (ABNORMAL) Hemogram (01/27/2015 10:45 AM EST) White Blood Cell 9.7 4.0 - 10.0 x10(3)/mc L [facility] MILLENNIUM Red Blood Cell 3.80(L) 3.93 - 5.22 x10(6)/mc L [facility] MILLENNIUM Hemoglobin 12.0 11.2 - 15.7 gm/dL [facility] MILLENNIUM Hematocrit 36.5 34.0 - 45.0 % [facility] MILLENNIUM Mean Cell Volume 96.1(H) 79.0 - 94.0 fL [facility] MILLENNIUM Mean Cell Hemoglobin 31.6 26.6 - 32.2 pg [facility] MILLENNIUM Mean Cell Hemoglobin Concentration 32.9 32.0 - 36.5 gm/dL [facility] MILLENNIUM Platelet 177 145 - 370 x10(3)/mc L [facility] MILLENNIUM RDW Standard Deviation 51.2(H) 35.0 - 46.0 fL [facility] MILLENNIUM RDW coefficient of variation 14.7(H) 10.9 - 14.4 % CERN[facility] MILLENNIUM Mean Platelet Volume 9.6 9.0 - 12.0 fL [facility] MILLENNIUM Blood specimen (specimen) 01/27/2015 10:45 AM EST 01/27/2015 11:06 AM EST Narrative Resulting Agency Comment Spec In Lab Sanju Marcos MD HEMATOLOGY ORDERABLE S Performing Organization Address [facility] de Phone Number [facility] JETENNIUM * (ABNORMAL) Magnesium (01/27/2015 10:45 AM EST) Magnesium 1.25(H) 0.69 - 1.07 mmol/L [facility] Blood specimen (specimen) 01/27/2015 10:45 AM EST 01/27/2015 11:06 AM EST Narrative Resulting Agency Comment Spec In Lab Sanju Marcos MD CHEMISTRY ORDERABLES Performing Organization Address [facility] de Phone Number [facility] JETENNIUM * (ABNORMAL) Creatinine (01/27/2015 10:45 AM EST) Creatinine 0.53(L) 0.70 - 1.20 mg/dL [facility] MILLENNIUM Comment: Please note that the pediatric reference intervals supplied above were not validated at [facility]. Results from pediatric patients should be interpreted in conjunction to the patient's age, height and muscle mass. Est Glomerular Filtration Rate >60 >=60 [facility] MILLENNIUM Comment: This estimated GFR (eGFR) value was calculated using the MDRD equation which has been validated on patients between the ages of 18 and 70. The MDRD should not be used to assess kidney function in patients < 18 years of age or in patients with extremes of body mass, or in patients with acute kidney failure. This value should be multiplied by 1.2 for patients. For further information please copy and paste the following links into your internet browser. [email or web address] [email or web address]/MCnkf Blood specimen (specimen) 01/27/2015 10:45 AM EST 01/27/2015 11:06 AM EST Narrative Resulting Agency Comment Spec In Lab Sanju Marcos MD CHEMISTRY ORDERABLES Performing Organization Address [facility] Co de Phone Number [facility] * Aspartate Aminotransferase (01/27/2015 10:45 AM EST) Aspartate Aminotransferase 13 0 - 30 unit/L [facility] Blood specimen (specimen) 01/27/2015 10:45 AM EST 01/27/2015 11:06 AM EST Narrative Resulting Agency Comment Spec In Lab Sanju Marcos MD CHEMISTRY ORDERABLES Performing Organization Address [facility] Phone Number [facility] * POCT Glucose (01/27/2015 8:15 AM EST) Glucose, POC 87 60 - 199 mg/dL [facility] Comment: Supplemental ranges: <140 mg/dL before meals <180 mg/dL all other times of the day Blood specimen (specimen) 01/27/2015 8:15 AM EST 01/27/2015 8:15 AM EST Sanju Marcos MD POINT OF CARE TEST O RDERABLES Performing Organization Address [facility] de Phone Number [facility] * Antibody screen (01/26/2015 9:15 PM EST) Ab Screen Interp Negative [facility] Expires at 2359 on: [id number] [facility] Blood specimen (specimen) 01/26/2015 9:15 PM EST 01/26/2015 9:31 PM EST Narrative Resulting Agency Comment Spec In Lab Sanju Marcos MD BLOOD BANK LAB ORDER CEDRICK Performing Organization Address [facility] Co de Phone Number [facility] * ABO/Rh Typing (01/26/2015 9:15 PM EST) ABORH Type A Pos [facility] Blood specimen (specimen) 01/26/2015 9:15 PM EST 01/26/2015 9:31 PM EST Narrative Resulting Agency Comment Spec In Lab Sanju Marcos MD BLOOD BANK LAB ORDER CEDRICK Performing Organization Address [facility] Co de Phone Number [facility] * POCT Glucose (01/26/2015 7:27 PM EST) Glucose, POC 134 60 - 199 mg/dL [facility] Comment: Supplemental ranges: <140 mg/dL before meals <180 mg/dL all other times of the day Blood specimen (specimen) 01/26/2015 7:27 PM EST 01/26/2015 7:27 PM EST Sanju Marcos MD POINT OF CARE TEST O RDERAKELIN Performing Organization Address [facility] de Phone Number [facility] * POCT Glucose (01/26/2015 1:35 PM EST) Glucose, POC 134 60 - 199 mg/dL [facility] Comment: Supplemental ranges: <140 mg/dL before meals <180 mg/dL all other times of the day Blood specimen (specimen) 01/26/2015 1:35 PM EST 01/26/2015 1:35 PM EST Sanju Marcos MD POINT OF CARE TEST O JAMILAH Performing Organization Address [facility] de Phone Number [facility] * POCT Glucose (01/26/2015 9:41 AM EST) Glucose, POC 154 60 - 199 mg/dL [facility] Comment: Supplemental ranges: <140 mg/dL before meals <180 mg/dL all other times of the day Blood specimen (specimen) 01/26/2015 9:41 AM EST 01/26/2015 9:41 AM EST Sanju Marcos MD POINT OF CARE TEST O RDERABLES Performing Organization Address [facility] de Phone Number [facility] * POCT Glucose (01/26/2015 8:37 AM EST) Glucose, POC 126 60 - 199 mg/dL [facility] Comment: Supplemental ranges: <140 mg/dL before meals <180 mg/dL all other times of the day Blood specimen (specimen) 01/26/2015 8:37 AM EST 01/26/2015 8:37 AM EST Sanju Marcos MD POINT OF CARE TEST O RDERAKELIN Performing Organization Address [facility] de Phone Number [facility] * POCT Glucose (01/25/2015 7:38 PM EST) Glucose, POC 105 60 - 199 mg/dL [facility] Comment: Supplemental ranges: <140 mg/dL before meals <180 mg/dL all other times of the day Blood specimen (specimen) 01/25/2015 7:38 PM EST 01/25/2015 7:38 PM EST Sanju Marcos MD POINT OF CARE TEST O RDRACHEAL Performing Organization Address [facility] de Phone Number [facility] * POCT Glucose (01/25/2015 1:32 PM EST) Glucose, POC 142 60 - 199 mg/dL [facility] Comment: Supplemental ranges: <140 mg/dL before meals <180 mg/dL all other times of the day Blood specimen (specimen) 01/25/2015 1:32 PM EST 01/25/2015 1:32 PM EST Sanju Marcos MD POINT OF CARE TEST O RDERABLES Performing Organization Address [facility] de Phone Number [facility] * POCT Glucose (01/25/2015 9:27 AM EST) Glucose, POC 137 60 - 199 mg/dL [facility] Comment: Supplemental ranges: <140 mg/dL before meals <180 mg/dL all other times of the day Blood specimen (specimen) 01/25/2015 9:27 AM EST 01/25/2015 9:27 AM EST Sanju Marcos MD POINT OF CARE TEST O RDERAKELIN Performing Organization Address [facility] Phone Number [facility] * POCT Glucose (01/25/2015 7:06 AM EST) Glucose, POC 100 60 - 199 mg/dL [facility] Comment: Supplemental ranges: <140 mg/dL before meals <180 mg/dL all other times of the day Blood specimen (specimen) 01/25/2015 7:06 AM EST 01/25/2015 7:06 AM EST Sanju Marcos MD POINT OF CARE TEST O ALEJANDRINAERAKELIN Performing Organization Address [facility] Phone Number [facility] * POCT Glucose (01/24/2015 7:31 PM EST) Glucose, POC 112 60 - 199 mg/dL [facility] Comment: Supplemental ranges: <140 mg/dL before meals <180 mg/dL all other times of the day Blood specimen (specimen) 01/24/2015 7:31 PM EST 01/24/2015 7:31 PM EST Sanju Marcos MD POINT OF CARE TEST O JAMILAH Performing Organization Address [facility] Phone Number [facility] * POCT Glucose (01/24/2015 2:23 PM EST) Glucose, POC 160 60 - 199 mg/dL [facility] Comment: Supplemental ranges: <140 mg/dL before meals <180 mg/dL all other times of the day Blood specimen (specimen) 01/24/2015 2:23 PM EST 01/24/2015 2:23 PM EST Sanju Marcos MD POINT OF CARE TEST O RDERABLES Performing Organization Address [facility] Co de Phone Number [facility] * POCT Glucose (01/24/2015 10:09 AM EST) Glucose, POC 158 60 - 199 mg/dL [facility] Comment: Supplemental ranges: <140 mg/dL before meals <180 mg/dL all other times of the day Blood specimen (specimen) 01/24/2015 10:09 AM EST 01/24/2015 10:09 AM EST Sanju Marcos MD POINT OF CARE TEST O JAMILAH Performing Organization Address [facility] de Phone Number [facility] * POCT Glucose (01/24/2015 6:59 AM EST) Glucose, POC 80 60 - 199 mg/dL [facility] Comment: Supplemental ranges: <140 mg/dL before meals <180 mg/dL all other times of the day Blood specimen (specimen) 01/24/2015 6:59 AM EST 01/24/2015 6:59 AM EST Sanju Marcos MD POINT OF CARE TEST O JAMILAH Performing Organization Address [facility] de Phone Number [facility] * POCT Glucose (01/23/2015 7:31 PM EST) Glucose, POC 118 60 - 199 mg/dL [facility] Comment: Supplemental ranges: <140 mg/dL before meals <180 mg/dL all other times of the day Blood specimen (specimen) 01/23/2015 7:31 PM EST 01/23/2015 7:31 PM EST Sanju Marcos MD POINT OF CARE TEST O JAMILAH Performing Organization Address [facility] Co de Phone Number [facility] * POCT Glucose (01/23/2015 2:51 PM EST) Glucose, POC 113 60 - 199 mg/dL [facility] Comment: Supplemental ranges: <140 mg/dL before meals <180 mg/dL all other times of the day Blood specimen (specimen) 01/23/2015 2:51 PM EST 01/23/2015 2:51 PM EST Sanju Marcos MD POINT OF CARE TEST O RDERABLES Performing Organization Address [facility] Phone Number [facility] * Antibody screen (01/23/2015 10:32 AM EST) Ab Screen Interp Negative [facility] Expires at [id number] on: [id number] [facility] Blood specimen (specimen) 01/23/2015 10:32 AM EST 01/23/2015 10:49 AM EST Narrative Resulting Agency Comment Spec In Lab Sanju Marcos MD BLOOD BANK LAB ORDER CEDRICK Performing Organization Address [facility] Phone Number [facility] * ABO/Rh Typing (01/23/2015 10:32 AM EST) ABORH Type A Pos [facility] Blood specimen (specimen) 01/23/2015 10:32 AM EST 01/23/2015 10:49 AM EST Narrative Resulting Agency Comment Spec In Lab Sanju Marcos MD BLOOD BANK LAB ORDER CEDRICK Performing Organization Address [facility] Phone Number [facility] * POCT Glucose (01/23/2015 10:25 AM EST) Glucose, POC 164 60 - 199 mg/dL [facility] Comment: Supplemental ranges: <140 mg/dL before meals <180 mg/dL all other times of the day Blood specimen (specimen) 01/23/2015 10:25 AM EST 01/23/2015 10:25 AM EST Sanju Marcos MD POINT OF CARE TEST O RDERABLES Performing Organization Address [facility] Phone Number [facility] * POCT Glucose (01/23/2015 7:45 AM EST) Glucose, POC 76 60 - 199 mg/dL [facility] Comment: Supplemental ranges: <140 mg/dL before meals <180 mg/dL all other times of the day Blood specimen (specimen) 01/23/2015 7:45 AM EST 01/23/2015 7:45 AM EST Sanju Marcos MD POINT OF CARE TEST O JAMILAH Performing Organization Address [facility] de Phone Number [facility] * POCT Glucose (01/22/2015 7:27 PM EST) Glucose, POC 123 60 - 199 mg/dL [facility] Comment: Supplemental ranges: <140 mg/dL before meals <180 mg/dL all other times of the day Blood specimen (specimen) 01/22/2015 7:27 PM EST 01/22/2015 7:27 PM EST Sanju Marcos MD POINT OF CARE TEST O JAMILAH Performing Organization Address [facility] Co de Phone Number [facility] * POCT Glucose (01/22/2015 1:50 PM EST) Glucose, POC 131 60 - 199 mg/dL [facility] Comment: Supplemental ranges: <140 mg/dL before meals <180 mg/dL all other times of the day Blood specimen (specimen) 01/22/2015 1:50 PM EST 01/22/2015 1:50 PM EST Sanju Marcos MD POINT OF CARE TEST O JAMILAH Performing Organization Address [facility] Co de Phone Number [facility] * POCT Glucose (01/22/2015 9:50 AM EST) Glucose, POC 142 60 - 199 mg/dL [facility] Comment: Supplemental ranges: <140 mg/dL before meals <180 mg/dL all other times of the day Blood specimen (specimen) 01/22/2015 9:50 AM EST 01/22/2015 9:50 AM EST Sanju Marcos MD POINT OF CARE TEST O RDRACHEAL Performing Organization Address [facility] Phone Number [facility] * POCT Glucose (01/22/2015 7:34 AM EST) Glucose, POC 99 60 - 199 mg/dL [facility] Comment: Supplemental ranges: <140 mg/dL before meals <180 mg/dL all other times of the day Blood specimen (specimen) 01/22/2015 7:34 AM EST 01/22/2015 7:34 AM EST Sanju Marcos MD POINT OF CARE TEST O JAMILAH Performing Organization Address [facility] Phone Number [facility] * POCT Glucose (01/21/2015 7:37 PM EST) Glucose, POC 149 60 - 199 mg/dL [facility] Comment: Supplemental ranges: <140 mg/dL before meals <180 mg/dL all other times of the day Blood specimen (specimen) 01/21/2015 7:37 PM EST 01/21/2015 7:37 PM EST Sanju Marcos MD POINT OF CARE TEST O RDRACHEAL Performing Organization Address [facility] Phone Number [facility] * POCT Glucose (01/21/2015 2:28 PM EST) Glucose, POC 138 60 - 199 mg/dL [facility] Comment: Supplemental ranges: <140 mg/dL before meals <180 mg/dL all other times of the day Blood specimen (specimen) 01/21/2015 2:28 PM EST 01/21/2015 2:28 PM EST Sanju Marcos MD POINT OF CARE TEST O RDERAKELIN Performing Organization Address [facility]/ZIP Co de Phone Number [facility] * OB follow up evaluation (01/21/2015 10:18 AM EST) Anatomical Region Laterality Modality Pelvis, Abdomen Ultrasound 01/21/2015 10:1 8 AM EST Narrative 01/21/2015 11:12 AM EST OBSTETRICS REPORT ?(Signed Final 01/21/2015 11:11 ? am) Patient Info ID #: ? [id number] ?: ??[birth year] (29 yrs)(F) Name: ? MARTINEZ RICHARDSON ?Visit Date: 01/21/2015 09:46 am Performed By Performed By: ?Ladi Gallegos RDMS Attending: ? Herbert FOY, Vinicius Traylor Referred By: ? TIFFANIE GONZALEZ MD Service(s) Provided ??UOBFOL - Efw - Growth - Irene - [phone] ? [id number] Indications ??29yo at 30w5d admitted with VB Evaluation Num Of Fetuses: ? 1 Heart ? 148 Rate(bpm): Cardiac Activity: ?? Observed, normal rhythm Presentation: ? Cephalic Placenta: ? Anterior P. Cord Insertion: ??Within Normal Limits Amniotic Fluid BRIDGET FV: ?Normal BRIDGET Sum: ? 16.35 ?? cm ? Larg Pckt: ?5.63 ??cm RUQ: ?? 4.18 ?cm ?LUQ: ?? 5.63 ?? cm RLQ: ?? 2.68 ?cm ?LLQ: ?? 3.86 ?? cm -------- Biometry -------- BPD: ?76.2 ??mm ?G. Age: ?? 30w 4d ?39 ??% OFD: ? 103.2 ??mm HC: ?288.5 ??mm ?G. Age: ?? 31w 5d ?47 ??% AC: ?285.7 ??mm ?G. Age: ?? 32w 4d ?92 ??% FL: ? 61.2 ??mm ?G. Age: ?? 31w 5d ?69 ??% HUM: ?51.6 ??mm ?G. Age: ?? 30w 1d ?44 ??% LV: ?7.8 ??mm CI: ?73.8 ??% ? 70 - 86 FL/HC: ? 21.2 ??% ? 19.3 - 21.3 HC/AC: ? 1.01 ?0.96 - 1.17 FL/BPD: ?80.3 ??% ? 71 - 87 FL/AC: ? 21.4 ??% ? 20 - 24 Est. FW: ?1898 ?? gm ? 4 lb 3 oz ?92 ??% Gestational Age Clinical ERIC: ??30w 4d ?ERIC: ?? 03/28/15 U/S Today: ? 31w 5d ?ERIC: ?? 03/20/15 Best: ?30w 4d ?? Det. By: ??Clinical ERIC ? ERIC: ?? 03/28/15 ------- Anatomy ------- Cranium: ?Visualized Cavum: ?Visualized Ventricles: ? Visualized Choroid Plexus: ? Limited Views Cerebellum: ? Not well seen due to position Posterior Fossa: ?Not well seen due to position Nuchal Fold: ?Not evaluated at this gestational age Face: ? Limited views Heart: ?4-chamber view appears normal RVOT: ? Visualized LVOT: ? Visualized Diaphragm: ?Visualized Stomach: ?Visualized Abdomen: ?Within Normal Limits Abdominal Wall: ? Not visualized due to late gestational a Cord Vessels: ? 3-vessels- WNL Kidneys: ?Visualized Bladder: ?Visualized Spine: ?Limited views Upper ? Limited views Extremities: Lower ? Limited views Extremities: Doppler - Uterine Artery Right S/D Ratio: ? RI: ?PI: ?%Tile Left S/D Ratio: ?RI: ?PI: ?%Tile Cervix Uterus Adnexa Left Ovary Not visualized Right Ovary Not visualized Impression 3rd Trimester Summary Single intrauterine with a gestational age of 30w 4d based on clinical ERIC. Composite age based on the current ultrasound alone is 31w 5d. Estimated weight corresponds to the 92th percentile for 30w 4d. Amniotic fluid volume is appropriate for gestational age. BRIDGET = 16.35 cm, MVP = 5.63 cm. Anatomical survey is limited due to the late gestational age. I ??viewed the images and agree with the above interpretation. ? Vinicius Godinez MD Electronically Signed Final Report ?? 01/21/2015 11:11 am Procedure Note Vinicius Godinez MD - 01/21/2015 OBSTETRICS REPORT (Signed Final 01/21/2015 11:11 am) Patient Info ID #: [id number] : [birth year] (29 yrs)(F) Name: MARTINEZ RICHARDSON Visit Date: 01/21/2015 09:46 am Performed By Performed By: Ladi Gallegos RDMS Attending: Vinicius Godinez MD Referred By: TIFFANIE GONZALEZ MD Service(s) Provided UOBFOL - Efw - Growth - Irene - [phone] [id number] Indications 29yo at 30w5d admitted with VB Evaluation Num Of Fetuses: 1 Heart 148 Rate(bpm): Cardiac Activity: Observed, normal rhythm Presentation: Cephalic Placenta: Anterior P. Cord Insertion: Within Normal Limits Amniotic Fluid BRIDGET FV: Normal BRIDGET Sum: 16.35 cm Larg Pckt: 5.63 cm RUQ: 4.18 cm LUQ: 5.63 cm RLQ: 2.68 cm LLQ: 3.86 cm -------- Biometry -------- BPD: 76.2 mm G. Age: 30w 4d 39 % OFD: 103.2 mm HC: 288.5 mm G. Age: 31w 5d 47 % AC: 285.7 mm G. Age: 32w 4d 92 % FL: 61.2 mm G. Age: 31w 5d 69 % HUM: 51.6 mm G. Age: 30w 1d 44 % LV: 7.8 mm CI: 73.8 % 70 - 86 FL/HC: 21.2 % 19.3 - 21.3 HC/AC: 1.01 0.96 - 1.17 FL/BPD: 80.3 % 71 - 87 FL/AC: 21.4 % 20 - 24 Est. FW: 1898 gm 4 lb 3 oz 92 % Gestational Age Clinical ERIC: 30w 4d ERIC: 03/28/15 U/S Today: 31w 5d ERIC: 03/20/15 Best: 30w 4d Det. By: Clinical ERIC ERIC: 03/28/15 ------- Anatomy ------- Cranium: Visualized Cavum: Visualized Ventricles: Visualized Choroid Plexus: Limited Views Cerebellum: Not well seen due to position Posterior Fossa: Not well seen due to position Nuchal Fold: Not evaluated at this gestational age Face: Limited views Heart: 4-chamber view appears normal RVOT: Visualized LVOT: Visualized Diaphragm: Visualized Stomach: Visualized Abdomen: Within Normal Limits Abdominal Wall: Not visualized due to late gestational a Cord Vessels: 3-vessels- WNL Kidneys: Visualized Bladder: Visualized Spine: Limited views Upper Limited views Extremities: Lower Limited views Extremities: Doppler - Uterine Artery Right S/D Ratio: RI: PI: %Tile Left S/D Ratio: RI: PI: %Tile Cervix Uterus Adnexa Left Ovary Not visualized Right Ovary Not visualized Impression 3rd Trimester Summary Single intrauterine with a gestational age of 30w 4d based on clinical ERIC. Composite age based on the current ultrasound alone is 31w 5d. Estimated weight corresponds to the 92th percentile for 30w 4d. Amniotic fluid volume is appropriate for gestational age. BRIDGET = 16.35 cm, MVP = 5.63 cm. Anatomical survey is limited due to the late gestational age. I viewed the images and agree with the above interpretation. Vinicius Godinez MD Electronically Signed Final Report 01/21/2015 11:11 am Sanju Marcos MD IMG OB ORDERABLES * POCT Glucose (01/21/2015 9:43 AM EST) Glucose, POC 154 60 - 199 mg/dL [facility] Comment: Supplemental ranges: <140 mg/dL before meals <180 mg/dL all other times of the day Blood specimen (specimen) 01/21/2015 9:43 AM EST 01/21/2015 9:43 AM EST Sanju Marcos MD POINT OF CARE TEST O RDERABLES Performing Organization Address [facility] de Phone Number [facility] * POCT Glucose (01/21/2015 7:07 AM EST) Glucose, POC 108 60 - 199 mg/dL [facility] Comment: Supplemental ranges: <140 mg/dL before meals <180 mg/dL all other times of the day Blood specimen (specimen) 01/21/2015 7:07 AM EST 01/21/2015 7:07 AM EST Sanju Marcos MD POINT OF CARE TEST O RDERABLES Performing Organization Address [facility] Co de Phone Number [facility] * Group B Streptococcus Screen (01/20/2015 8:27 PM EST) GBS Screen Neg [facility] Pooled specimen from vaginal introitus and rectal swab (specimen) 01/20/2015 8:27 PM EST 01/20/2015 8:57 PM EST Comment:Penicillin Allergy?- >Yes Narrative Resulting Agency Comment Spec In Lab Sanju Marcos MD MICROBIOLOGY - GENER AL ORDERABLES Performing Organization Address [facility] Co de Phone Number [facility] * Group B Strep Culture Screen (01/20/2015 8:27 PM EST) Group B Streptococcus Culture ? Patient Name: MARTINEZ RICHARDSON ? Ordered By: SANJU MARCOS ? MR#: [id number] ?LOC: ??BP ? /Sex: ??1985 (29 years), ? Female ? PROCEDURE: Group B Streptococcus Culture ?SOURCE: Vag/Rectal ? COLLECTED: 01/20/2015 20:27 ?FREE TEXT SOURCE: Penicillin Allergy?->Yes ? STARTED: 01/20/2015 20:57 ? FINAL REPORT ? Final Report ? Verified: 015 11:57 ? No Group B Streptococci isolated ? PRELIMINARY REPORT ? Preliminary Report ? Verified: 015 12:16 ? Culture in progress ? [facility] Pooled specimen from vaginal introitus and rectal swab (specimen) 01/20/2015 8:27 PM EST 01/20/2015 8:57 PM EST Comment:PENICILLIN ALLERGY?- >YES Narrative Resulting Agency Comment Spec In Lab Sanju Marcos MD MICROBIOLOGY - GENER AL ORDERABLES Performing Organization Address City/State/[facility] Co de Phone Number [facility] * POCT Glucose (01/20/2015 8:12 PM EST) Pathologist [facility] Glucose, POC 132 60 - 199 mg/dL [facility] Comment: Supplemental ranges: <140 mg/dL before meals <180 mg/dL all other times of the day Blood specimen (specimen) 01/20/2015 8:12 PM EST 01/20/2015 8:12 PM EST Sanju Marcos MD POINT OF CARE TEST O RDERABLES Performing Organization Address [facility] Phone Number [facility] * Antibody screen (01/20/2015 6:02 PM EST) Pathologist [facility] Ab Screen Interp Negative [facility] Expires at [id number] on: [id number] [facility] Blood specimen (specimen) 01/20/2015 6:02 PM EST 01/20/2015 6:02 PM EST Narrative Resulting Agency Comment Spec In Lab Sanju Marcos MD BLOOD BANK LAB ORDER CEDRICK Performing Organization Address [facility] Phone Number [facility] * ABO/Rh Typing (01/20/2015 6:02 PM EST) Pathologist [facility] ABORH Type A Pos [facility] Blood specimen (specimen) 01/20/2015 6:02 PM EST 01/20/2015 6:02 PM EST Narrative Resulting Agency Comment Spec In Lab Sanju Marcos MD BLOOD BANK LAB ORDER CEDRICK Performing Organization Address [facility] Phone Number [facility] * (ABNORMAL) Differential, Automated (01/20/2015 5:45 PM EST) Pathologist [facility] Neutrophil % 67.0 % [facility] Neutrophil Absolute 7.70(H) 1.50 - 6.30 x10(3)/mc L [facility] Lymph % 23.2 % [facility] Lymphocytes Abs 2.7 1.0 - 3.6 x10(3)/mc L [facility] Monocyte % 8.4 % [facility] Monocyte Abs 1.0 0.2 - 1.0 x10(3)/mc L [facility] Eos % 0.6 % [facility] Eosinophils Abs 0.1 0.0 - 0.5 x10(3)/mc L [facility] Basophil % 0.1 % [facility] Baso Absolute 0.0 0.0 - 0.2 x10(3)/mc L [facility] Immature Gran % 0.70 % [facility] Comment: Immature granulocytes(IG's)percentage and absolute count will include metamyelocytes, myelocytes, and promyelocytes. Blood smears from CBCs yielding IG's will be scanned manually for concordance. If this scan disagrees with the automated IG or if promyelocytes are noted, a manual differential will be performed. Immature Gran Absolute 0.08(H) 0.00 - 0.05 x10(3)/mc L [facility] Blood specimen (specimen) 01/20/2015 5:45 PM EST 01/20/2015 5:53 PM EST Narrative Resulting Agency Comment Spec In Lab Sanju Marcos MD HEMATOLOGY ORDERABLE S [facility] * (ABNORMAL) Hemogram (01/20/2015 5:45 PM EST) White Blood Cell 11.5(H) 4.0 - 10.0 x10(3)/mc L [facility] MILLENNI[facility] Red Blood Cell 3.82(L) 3.93 - 5.22 x10(6)/mc L [facility] Hemoglobin 12.4 11.2 - 15.7 gm/dL [facility] MILLENNIUM Hematocrit 35.5 34.0 - 45.0 % [facility] MILLENNIUM Mean Cell Volume 92.9 79.0 - 94.0 fL [facility] MILLENNIUM Mean Cell Hemoglobin 32.5(H) 26.6 - 32.2 pg [facility] MILLENNIUM Mean Cell Hemoglobin Concentration 34.9 32.0 - 36.5 gm/dL [facility] MILLENNIUM Platelet 159 145 - 370 x10(3)/mc L [facility] MILLENNIUM RDW Standard Deviation 46.6(H) 35.0 - 46.0 fL [facility] MILLENNIUM RDW coefficient of variation 13.8 10.9 - 14.4 % [facility] Mean Platelet Volume 9.7 9.0 - 12.0 fL [facility] Blood specimen (specimen) 01/20/2015 5:45 PM EST 01/20/2015 5:53 PM EST Narrative Resulting Agency Comment Spec In Lab Sanju Marcos MD HEMATOLOGY ORDERABLE S [facility] documented in this encounter Visit Diagnoses Diagnosis Gestational diabetes mellitus in , insulin controlled Abnormal maternal glucose tolerance, complicating , childbirth, or the puerperium, unspecified as to episode of care Supervision of high risk in second trimester Unspecified high-risk with third trimester bleeding, antepartum Unspecified antepartum hemorrhage, antepartum Previous delivery affecting Previous delivery, unspecified as to episode of care or not applicable Previous delivery affecting Previous delivery, unspecified as to episode of care or not applicable with third trimester bleeding, antepartum Unspecified antepartum hemorrhage, antepartum GDMA2 on insulin Abnormal maternal glucose tolerance, complicating , childbirth, or the puerperium, unspecified as to episode of care hemorrhage Other immediate hemorrhage, unspecified as to episode of care documented in this encounter Administered Medications Inactive Administered Medications - up to 3 most recent administrations Medication Order MAR Action Action Date Dose Rate Site acetaminophen (TYLENOL) tablet 1,000 mg 1,000 mg, Oral, EVERY 6 HOURS PRN, Starting on Fri03/01/15 at 1648, Until 03/04/15 at 1321, Pain, - Moderate pain (pain scale 4-6). - Maximum dose of acetaminophen is 4000 mg from all sources in 24 hours., Routine Given 03/03/2015 2:09 PM EDT 1,000 mg Given 03/03/2015 7:44 AM EDT 1,000 mg Given 03/03/2015 12:23 AM EDT 1,000 mg acetaminophen (TYLENOL) tablet 650 mg 650 mg, Oral, EVERY 4 HOURS PRN, Starting on Fri03/01/15 at 1648, Until 03/04/15 at 1321, Pain, - Mild pain (pain scale 1-3) - Maximum dose of acetaminophen is 4000 mg from all sources in 24 hours., Routine Given 03/04/2015 6:54 AM EDT 650 mg Given 03/04/2015 1:28 AM EDT 650 mg betamethasone acetate-betamethasone sodium phosphate (CELESTONE) injection 12 mg 12 mg, Intramuscular, EVERY 24 HOURS, 2 doses, First dose on Fri01/20/15 at 1730, Last dose on Fri01/21/15 at 1730, Routine Given 01/21/2015 5:34 PM EST 12 mg Left Gluteal Given 01/20/2015 5:46 PM EST 12 mg citric acid-sodium citrate (BICITRA) oral solution 30 mL 30 mL, Oral, ONCE, 1 dose, On Fri03/01/15 at 1445, Routine Given 03/01/2015 12:30 PM EDT 30 mLs diph,pertuss(acel),tet vac(PF) (ADACEL, Tdap) injection 0.5 mL 0.5 mL, Intramuscular, PRIOR TO DISCHARGE, Per Protocol, Starting on Fri01/25/15 at 0813, 1 dose, Until Fri01/25/15 at 0831 Given 01/25/2015 8:31 AM EST 0.5 mLs Left Deltoid docusate sodium (COLACE) capsule 100 mg 100 mg, Oral, 2 TIMES DAILY, First dose on Fri02/07/15 at 0930, Until Discontinued, Routine Given 03/04/2015 9:31 AM EDT 100 mg Given 03/03/2015 8:32 PM EDT 100 mg Given 03/03/2015 8:19 AM EDT 100 mg enoxaparin (LOVENOX) injection 40 mg 40 mg, Subcutaneous, EVERY 24 HOURS SCHEDULED (Daily), First dose on Fri03/02/15 at 0900, Until Discontinued, Routine Given 03/03/2015 8:19 AM EDT 40 mg Given 03/02/2015 10:59 AM EDT 40 mg ibuprofen (ADVIL;MOTRIN) tablet 600 mg 600 mg, Oral, EVERY 6 HOURS PRN, Starting on Fri03/02/15 at 1715, Until Fri03/04/15 at 1321, Pain, - Mild to moderate pain (pain scale 1-6). - Begin after ketorolac discontinued., Routine Given 03/04/2015 9:31 AM EDT 600 mg Given 03/03/2015 8:32 PM EDT 600 mg Given 03/03/2015 11:49 AM EDT 600 mg insulin aspart (novoLOG) VIAL injection 1-3 Units 1-3 Units, Subcutaneous, 3 TIMES DAILY AFTER MEALS, First dose on Fri01/28/15 at 1300, Until Discontinued, Sensitive to insulin lean patient or total daily dose of all insulin needed to achieve glycemic control less than 30 units Give 1 unit for every 30 mg/dL over target. Pre-meal target blood glucose less than 100 mg/dL. 1 hour post prandial-- Target blood glucose less than 140 mg/dL. Given 02/17/2015 8:54 AM EDT 1 Units Given 02/08/2015 7:08 PM EDT 1 Units Given 02/07/2015 7:06 PM EDT 1 Units Ri ght Arm insulin aspart (novoLOG) VIAL injection 8-18 Units 8-18 Units, Subcutaneous, 2 TIMES DAILY WITH MEALS, First dose on Fri01/20/15 at 1900, Until Discontinued, Give 12 units Novalog with breakfast Give 18 units Novalog with dinner Given 01/30/2015 8:34 AM EDT 12 Units Given 01/29/2015 4:58 PM EDT 18 Units Le ft Arm Given 01/29/2015 8:51 AM EDT 12 Units Ri ght Arm insulin aspart (novoLOG) VIAL injection 8-20 Units 8-20 Units, Subcutaneous, 3 TIMES DAILY WITH MEALS, First dose (after last modification) on Fri01/30/15 at 1200, Until Discontinued, Give 14 units Novalog with breakfast Give 14 units Novalog with lunch Give 20 units Novalog with dinner Given 01/31/2015 7:51 AM EDT 14 Units Given 01/30/2015 6:39 PM EDT 20 Units Given 01/30/2015 2:07 PM EDT 14 Units insulin aspart (novoLOG) VIAL injection 8-22 Units 8-22 Units, Subcutaneous, 3 TIMES DAILY WITH MEALS, First dose (after last modification) on Fri01/31/15 at 1200, Until Discontinued, Give 24 units Novalog with breakfast Give 24 units Novalog with lunch Give 28 units Novalog with dinner Given 02/20/2015 7:38 AM EDT 22 Units Given 02/19/2015 6:25 PM EDT 8 Units Given 02/19/2015 1:36 PM EDT 22 Units insulin aspart (novoLOG) VIAL injection 8-28 Units 8-28 Units, Subcutaneous, 3 TIMES DAILY WITH MEALS, First dose (after last modification) on Fri02/20/15 at 1200, Until Discontinued, Give 24 units Novalog with breakfast Give 26 units Novalog with lunch Give 28 units Novalog with dinner Given 03/01/2015 7:34 AM EDT 24 Units Given 02/28/2015 6:24 PM EDT 28 Units Given 02/28/2015 1:10 PM EDT 26 Units insulin NPH human recomb (HumuLIN;NovoLIN) injection 1-50 Units 1-50 Units, Subcutaneous, USER SPECIFIED (2 times per day), First dose on Fri01/20/15 at 2100, Until Discontinued, Basal insulin. At 0700 give 24 units. At 2100 give 22 units., Routine Given 03/01/2015 6:59 AM EDT 24 Units Given 02/28/2015 8:29 PM EDT 22 Units Given 02/28/2015 6:26 AM EDT 24 Units ketorolac (TORADOL) injection 15 mg 15 mg, Intravenous, EVERY 8 HOURS, 3 doses, First dose on Fri03/01/15 at 1715, Last dose on Fri03/02/15 at 0915, - Mild to moderate pain (pain scale 1-6). - Stop after 24 hours then start ibuprofen orally., Routine Given 03/02/2015 2:36 PM EDT 15 mg Given 03/02/2015 7:04 AM EDT 15 mg Given 03/01/2015 11:07 PM EDT 15 mg lactated ringers infusion 10 mL/hr, Intravenous, CONTINUOUS, Starting on Fri01/27/15 at 0000, Until Fri03/01/15 at 1648 New Bag 01/26/2015 11:35 PM EST 10 mL/hr 10 mL/hr magnesium sulfate 20 g in lactated ringers 500 mL infusion 4 g/hr (100 mL/hr), Intravenous, CONTINUOUS, Starting on Fri01/26/15 at 2245, Until Fri01/27/15 at 2235, Run over first 20 minutes, thanks., Routine New Bag 01/26/2015 11:35 PM EST 4 g/hr 100 mL/hr magnesium sulfate 20 g in lactated ringers 500 mL infusion 1 g/hr (25 mL/hr), Intravenous, CONTINUOUS, Starting on Camilla 01/26/15 at 2245, Until Fri01/27/15 at 2235, Routine New Bag 01/27/2015 4:15 PM EST 1 g/hr 25 mL/hr New Bag 01/26/2015 11:37 PM EST 1 g/hr 25 mL/hr ondansetron (ZOFRAN) injection 4 mg 4 mg, Intravenous, EVERY 8 HOURS PRN, Starting on Fri03/01/15 at 1914, Until 03/04/15 at 1321, Nausea, Routine Given 03/01/2015 7:22 PM EDT 4 mg oxyCODONE (ROXICODONE) immediate release tablet 5-10 mg 5-10 mg, Oral, EVERY 3 HOURS PRN, Starting on Fri03/01/15 at 1648, Until 03/04/15 at 1321, Pain, - 5mg for pain 4-6/10 - 10 mg for pain >6/10, Routine Given 03/04/2015 6:55 AM EDT 10 mg Given 03/04/2015 1:26 AM EDT 10 mg Given 03/03/2015 8:33 PM EDT 10 mg polyethylene glycol (MIRALAX) packet 17 g 17 g, Oral, DAILY PRN, Starting on Fri02/07/15 at 0908, Until Fri02/13/15 at 0918, Constipation, Routine Given 02/12/2015 3:22 PM EDT 17 g Given 02/09/2015 8:10 AM EDT 17 g Given 02/07/2015 11:16 AM EDT 17 g polyethylene glycol (MIRALAX) packet 17 g 17 g, Oral, DAILY, First dose (after last modification) on Fri02/14/15 at 1000, Until Discontinued, Routine Given 02/26/2015 10:23 AM EDT 17 g Given 02/15/2015 9:22 AM EDT 17 g Given 02/14/2015 11:52 AM EDT 17 g vitamin 27 & [id number] 60 mg iron-1 mg tablet Tab 1 tablet 1 tablet, Oral, DAILY, First dose on Fri01/20/15 at 1730, Until Discontinued, Routine Given 02/28/2015 8:32 PM EDT 1 tablet Given 02/27/2015 8:00 PM EDT 1 tablet Given 02/26/2015 8:52 PM EDT 1 tablet senna-docusate (PERICOLACE) 8.6-50 mg per tablet 1 tablet 1 tablet, Oral, 2 TIMES DAILY, First dose on Fri03/03/15 at 0900, Until Discontinued, Routine Given 03/03/2015 9:00 PM EDT 1 tablet Given 03/03/2015 8:19 AM EDT 1 tablet sodium chloride 0.9 % flush 5 mL 5 mL, Intravenous, 2 TIMES DAILY, First dose on Fri01/20/15 at 2100, Until Discontinued, Routine Given 03/01/2015 9:00 AM EDT 5 mLs Given 02/28/2015 9:44 AM EDT 5 mLs Given 02/27/2015 8:02 PM EDT 5 mLs zolpidem (AMBIEN) tablet 5 mg 5 mg, Oral, NIGHTLY PRN, Starting on Fri01/20/15 at 1712, Until Fri03/01/15 at 1648, Sleep, Routine Given 01/27/2015 1:44 AM EST 5 mg documented in this encounter Active and Recently Administered Medications Times are shown in EDT. Scheduled Medication Order 03/02/2015 03/03/2015 03/04/2015 docusate sodium (COLACE) capsule 100 mg 100 mg, Oral, 2 TIMES DAILY, First dose on Fri02/07/15 at 0930, Until Discontinued, Routine 1059 (Given - Provider: Griselda Ross, ROSARIO)2018 (Given - Provider: Judi Peguero RN) 0819 (Given - Provider: Griselda Ross, ROSARIO)2031 (Given - Provider: Henny Arellano, ROSARIO) 09 (Given - Provider: Mayte Ayala, ROSARIO) enoxaparin (LOVENOX) injection 40 mg (CANCELED) 40 mg, Subcutaneous, EVERY 24 HOURS SCHEDULED (Daily), First dose on Fri03/02/15 at 0900, Until Discontinued, Routine 1059 (Given - Provider: Griselda Ross RN) 0819 (Given - Provider: Griselda Ross, ROSARIO) 0900 (Due) ketorolac (TORADOL) injection 15 mg (COMPLETED)(Linked Group 1) 15 mg, Intravenous, EVERY 8 HOURS, 3 doses, First dose on Fri03/01/15 at 1715, Last dose on Fri03/02/15 at 0915, - Mild to moderate pain (pain scale 1-6). - Stop after 24 hours then start ibuprofen orally., Routine 07 (Given - Provider: Rocio Goins RN)0915 (Hold - Provider: Griselda Ross RN - Reason: See comment - Comment: gave previously)1436 (Given - Provider: Tracey Abreu RN) senna-docusate (PERICOLACE) 8.6-50 mg per tablet 1 tablet (CANCELED) 1 tablet, Oral, 2 TIMES DAILY, First dose on Fri03/03/15 at 0900, Until Discontinued, Routine 0819 (Given - Provider: Griselda Ross RN)2100 (Given - Provider: Henny Arellano RN) 0900 (Due) PRN Medication Order 03/02/2015 03/03/2015 03/04/2015 acetaminophen (TYLENOL) tablet 1,000 mg (CANCELED)(Linked Group 2) 1,000 mg, Oral, EVERY 6 HOURS PRN, Starting on Fri03/01/15 at 1648, Until 03/04/15 at 1321, Pain, - Moderate pain (pain scale 4-6). - Maximum dose of acetaminophen is 4000 mg from all sources in 24 hours., Routine 0312 (Given - Provider: Kinza Farley RN)1059 (Given - Provider: Griselda Ross RN)1807 (Given - Provider: Griselda Ross RN) 0023 (Given - Provider: Judi Peguero RN)0744 (Given - Provider: Griselda Ross RN)1409 (Given - Provider: Griselda Ross RN) 0128 (See Alternative - Provider: Henny Arellano, ROSARIO)0654 (See Alternative - Provider: Henny Arellano RN) acetaminophen (TYLENOL) tablet 650 mg (CANCELED)(Linked Group 2) 650 mg, Oral, EVERY 4 HOURS PRN, Starting on Fri03/01/15 at 1648, Until 03/04/15 at 1321, Pain, - Mild pain (pain scale 1-3) - Maximum dose of acetaminophen is 4000 mg from all sources in 24 hours., Routine 0312 (See Alternative - Provider: Kinza Farley RN)1059 (See Alternative - Provider: Griselda Ross RN)1807 (See Alternative - Provider: Griselda Ross, ROSARIO) 0023 (See Alternative - Provider: Judi Peguero RN)0744 (See Alternative - Provider: Griselda Ross RN)1409 (See Alternative - Provider: Griselda Ross RN) 0128 (Given - Provider: Henny Arellano, ROSARIO)0654 (Given - Provider: Henny Arellano RN) ibuprofen (ADVIL;MOTRIN) tablet 600 mg(Linked Group 1) 600 mg, Oral, EVERY 6 HOURS PRN, Starting on Camilla 03/02/15 at 1715, Until 03/04/15 at 1321, Pain, - Mild to moderate pain (pain scale 1-6). - Begin after ketorolac discontinued., Routine 2019 (Given - Provider: Judi Peguero RN) 0306 (Given - Provider: Radu García)1149 (Given - Provider: Griselda Ross RN)203 (Given - Provider: Henny Arellano RN) 0931 (Given - Provider: Mayte Ayala RN) oxyCODONE (ROXICODONE) immediate release tablet 5-10 mg 5-10 mg, Oral, EVERY 3 HOURS PRN, Starting on Fri03/01/15 at 1648, Until 03/04/15 at 1321, Pain, - 5mg for pain 4-6/10 - 10 mg for pain >6/10, Routine 0108 (Given - Provider: Judi Peguero RN)0605 (Given - Provider: Radu García)0926 (Given - Provider: Griselda Ross, ROSARIO)1235 (Given - Provider: Griselda Ross, ROSARIO)1727 (Given - Provider: Griselda Ross, ROSARIO)2033 (Given - Provider: Henny Arellano, ROSARIO) 0126 (Given - Provider: Henny Arellano RN)0655 (Given - Provider: Henny Arellano RN) Linked Groups Order Group 1: ketorolac (TORADOL) injection 15 mg (COMPLETED)Jump to med 15 mg, Intravenous, EVERY 8 HOURS, 3 doses, First dose on Fri03/01/15 at 1715, Last dose on Camilla 03/02/15 at 0915, - Mild to moderate pain (pain scale 1-6). - Stop after 24 hours then start ibuprofen orally., Routine Followed by ibuprofen (ADVIL;MOTRIN) tablet 600 mgJump to med 600 mg, Oral, EVERY 6 HOURS PRN, Starting on Camilla 03/02/15 at 1715, Until 03/04/15 at 1321, Pain, - Mild to moderate pain (pain scale 1-6). - Begin after ketorolac discontinued., Routine Group 2: acetaminophen (TYLENOL) tablet 650 mg (CANCELED)Jump to med 650 mg, Oral, EVERY 4 HOURS PRN, Starting on 03/01/15 at 1648, Until 03/04/15 at 1321, Pain, - Mild pain (pain scale 1-3) - Maximum dose of acetaminophen is 4000 mg from all sources in 24 hours., Routine Or acetaminophen (TYLENOL) tablet 1,000 mg (CANCELED)Jump to med 1,000 mg, Oral, EVERY 6 HOURS PRN, Starting on 03/01/15 at 1648, Until 03/04/15 at 1321, Pain, - Moderate pain (pain scale 4-6). - Maximum dose of acetaminophen is 4000 mg from all sources in 24 hours., Routine documented in this encounter Care Teams Marketing And Public Relations Manager Relationship Specialty Start Date End Date Chantel Guevara MD [address] [place] [address] PCP - General 10/16/10 12/11/18 documented as of this encounter
--- OUTSIDE RECORDS SUMMARY | 2024-07-01 22:38 | XMS_ITS | Encounter Summary ---
Author Organization [facility] [place] [address] Care Team Providers Care Speed Runner Name Role Phone Keyona Guevara MD Primary Care Provider [phone] Encounter Details Date Type Department Care Team (Late st Contact Info) Description 03/01/2015 2:17 PM EDT [place]est[place] [address] Dewayne Paula MD [facility] [place] [address] Alejandra Thompson MD [facility] [place] [address] Anesthesia Record Procedure Summary Procedure Name Responsible Anesthesiologist Anesthesia Start Time Anesthesia Stop Time @ DELIVERY (WRVU 16.13) (Bilateral) Dewayne Paula MD 03/01/15 1417 03/01/15 1632 Events Date Time Event Comment 03/01/2015 1417 Start 1419 AN Verify 1419 An Start Data 1436 Spinal 1437 L Uterine Displacement 1441 Anesthesia Ready 1456 Skin Incision 1510 Uterine Incision 1511 Baby Delivered 1621 an stop data 1631 1632 Stop Meds Name Total fentaNYL 15 mcg Ketorolac 15 mg PHENYLephrine INF 2,920 mcg Oxytocin INF 20 mL Oxytocin INF 658.33 mL Gentamicin 500 mg Clindamycin 900 mg Morphine(Neuraxial) 150 mcg BUpivacaine 0.5% 2.4 mL Lactated Ringers 500 mL Lactated Ringers 1,500 mL * Agents Name O2 N2O * Blood No blood administrations on file. Lines, Drains, and Airways Type Details Placement Removal (RETIRED) Peripheral IV Line - Single Lumen 02/22/15; 2105; median vein left (underside of arm); [id number] catheter system; 18 gauge; Layton Kraft RN; intradermal injection; 3; basilic vein (medial side of arm), right, cephalic vein (lateral side of arm), right; 03/02/15; 1145 02/22/15 2105 by Camila Kraft RN 03/02/15 1145 by Griselda Ross RN (RETIRED By [facility]) Incision 03/01/15; 12/28/18; 1021 03/01/15 0000 by Mayra Diamond RN 12/28/18 1021 by Nay Fournier RN (RETIRED) Peripheral IV Line - Single Lumen 03/01/15; 1417; metacarpal vein right (top of hand); [id number] catheter system; 18 gauge; [place]; intradermal injection; no longer indicated, removed per policy/procedure, catheter intact; 03/02/15; 1440 03/01/15 1417 by Alejandra Thompson MD 03/02/15 1440 by Tracey Abreu RN Urethral Catheter 03/01/15; 1444; Abdominal surgery; Physician order; indwelling single lumen catheter; inserted at this facility; 10; 10; drainage bag to dependent drainage; 03/02/15; 0730 03/01/15 1444 by Mayra Diamond RN 03/02/15 0730 by Rocio Goins RN documented in this encounter Social History Tobacco [...] of this encounter OR Notes * Anesthesia Procedure Notes - Jese Briggs - 03/01/2015 4:41 PM EDT Associated Order(s): ANE NEURAXIAL UPDATED Procedure: Neuraxial Block Primary Anesthetic Type: Spinal & Epidural The patient was greeted. The sedation plan, its benefits, risks and alternatives were discussed with the patient. The patient has consented to the procedure. The medical history and chart were reviewed. The timeout was performed. Start time: 03/01/2015 2:26 PM End time: 03/01/2015 2:36 PM Patient Location: Operating Room Patient Prep Position: Sitting Prep: Hand Hygiene, Hat, Mask, Sterile Gloves and Chlorhexidine Injection technique: single-shot and continuous Skin Anesthetic Lidocaine 1% 3 ml Procedure Technique Level of needle insertion: L4-5 Needle approach: midline Needle Type: Rob Kelly Gauge: 18 or 27 Needle length: 3.5 in or 4.5 in Needle insertion depth when MONSE achieved: 7 cm Technique for Loss of Resistance: MONSE saline A 20 guage epidural catheter introduced Catheter at skin depth: 12 cm Dressing/Secured with: Chlorhexidine Tegaderm Number of attempts: 1 Intrathecal Injection The patient received the following medication/s as an intrathecal injection: Bupivacaine 0.5% 2.4 ml Fentanyl 15 mcg Morphine 150 mcg Events/Notes Events: None Additional Notes: Patient tolerated procedure well. CSE placed without complication. Spinal medications given. No medications given through epidural. Epidural pulled at end of case, tip intact. Resident/EDUCATIONAL PROGRAMMING DIRECTOR: MD [place] Fellow: Attending Physician: MD Nisa ~~~~~~~~~~~~~~~~~~~~~~~~~~~~~~~~~~~~~~~~~~~~~~~~~~~~~~~~~~~~ * Anesthesia Postprocedure Evaluation - Jese Briggs - 03/01/2015 4:40 PM EDT Patient: Spring Camacho Procedure(s) Performed: Procedure(s): @ DELIVERY @FALLOPIAN TUBE(S), TRANSECTION OR LIGATION, ABD APPROACH, POST- Actual Anesthetic: NAB - Combined Spinal Epidural Patient location: Labor and Delivery Post-op pain: Adequate analgesia Post-op nausea: no nausea or vomiting Last Vitals: Filed Vitals: 03/01/15 0730 BP: 97/65 Pulse: 92 Temp: 36.9 ??C (98.4 ??F) Resp: 18 Post-op cardiovascular and respiratory status: is stable Level of consciousness: awake, alert and oriented Complications: no apparent complications and tolerated the procedure well Fluid Status: normal * Anesthesia Preprocedure Evaluation - Jese Briggs - 03/01/2015 4:35 PM EDT Pre-Anesthesia Evaluation for: Spring Melendez Camacho a 29 y.o. female. Procedure(s): @ DELIVERY @FALLOPIAN TUBE(S), TRANSECTION OR LIGATION, ABD APPROACH, POST- Patient Active Problem List Diagnosis ??? GDMA2 on insulin ??? Previous delivery [...] Varicella Other ??? Gestational diabetes Past Medical History Diagnosis Date ??? PCOS (polycystic ovarian syndrome) ??? Gestational diabetes ??? Septate uterus ??? Depression with anxiety ??? Varicella Past Surgical History Procedure Laterality Date ??? section x2 ??? Dilation and curettage of uterus x2 ??? Tonsillectomy and adenoidectomy 2013 History Substance Use Topics ??? Smoking status: Never Smoker ??? Smokeless tobacco: Never Used ??? Alcohol Use: 4.2 oz/week 7 Glasses of wine per week Comment: not while History Drug Use No Allergies Allergen Reactions ??? Penicillins CIS - Mouth swelling, difficulty breathing Medications: MAR and/or home medications have been reviewed. Physical Exam: Filed Vitals: 03/01/15 0730 BP: 97/65 Pulse: 92 Temp: 36.9 ??C (98.4 ??F) Resp: 18 Body mass index is 34.73 kg/(m^2). Height: 170.2 cm (5' 7) Weight - Scale: 100.6 kg (221 lb 12.5 oz) Airway Assessment: Mallampati: III TM distance: >3 FB Neck ROM: full Cardiovascular Assessment: cardiovascular exam normal Pulmonary Assessment: pulmonary exam normal Dental Assessment: - normal exam [facility] [place]: Anesthesia Plan: ASA 2 spinal and epidural, 29 y.o. Female at 36w3d with PMH per above being evaluated for labor and delivery anesthesia in the setting of recent vaginal bleeding with likely placental abruption. Patient denies h/o migraines, any current back pain or prior back surgery, LE paresthesia or weakness, or problems with voiding. There is no documented history of significant cardiopulmonary, hepatobiliary, renal or bleeding disorders. Patient's history notable for gestational diabetes A2 on insulin with recent good control. Patient has had 2 prior c-sections with spinals placed for anesthesia and no complications. Personal/Family anesthetic history: none Allergies: -- Penicillins -- CIS - Mouth swelling, difficulty breathing Labs: HGB 15.7 03/01/2015 PLATELET 175 03/01/2015 ABORH A Pos 02/28/2015 HGB 15.7 03/01/2015 1:40 PM PLATELET 175 03/01/2015 1:40 PM The risks, benefits and alternatives of general and neuraxial anesthesia were discussed with patient for labor or section. These included, but were not limited to bleeding, infection, need to repeat a regional/neuraxial procedure, intrinsic failure rate, post-dural puncture headache, nerveinjury, damage to teeth, and sore throat. Patient expressed understanding and was offered opportunity to ask questions. Consent was signed and placed in chart. Jese Briggs MD 03/01/2015 Region - Informed Consent: Anesthetic plan and risks discussed with patient. Use of blood products discussed with patient whom. Plan discussed with resident and attending. [facility] [place] Assessment: documented in this encounter Plan of Treatment Not on file documented as of this encounter Procedures Procedure Name Priority Date/Time Associated Diagnosis Comments ANE NEURAXIAL UPDATED Routine 03/01/2015 4:56 PM EDT documented in this encounter Results * ANE NEURAXIAL UPDATED (03/01/2015 4:56 PM EDT) Narrative Jese Briggs - 03/01/2015 4:56 PM EDT Jese Briggs MD ? 03/01/2015 ??4:56 PM Procedure: ?? Neuraxial Block Primary Anesthetic Type: Spinal & Epidural The patient was greeted. The sedation plan, its benefits, risks and alternatives were discussed with the patient. ??The patient has consented to the procedure. ??The medical history and chart were reviewed. ??The timeout was performed. Start time: 03/01/2015 2:26 PM End time: 03/01/2015 2:36 PM Patient Location: Operating Room Patient Prep Position: Sitting Prep: Hand Hygiene, Hat, Mask, Sterile Gloves and Chlorhexidine Injection technique: single-shot and continuous Skin Anesthetic Lidocaine 1% ??3 ml Procedure Technique Level of needle insertion: L4-5 Needle approach: midline Needle Type: Rob Kelly Gauge: 18 or 27 Needle length: 3.5 in or 4.5 in Needle insertion depth when MONSE achieved: 7 cm Technique for Loss of Resistance: MONSE saline A 20 guage epidural catheter introduced Catheter at skin depth: 12 cm Dressing/Secured with: Chlorhexidine Tegaderm Number of attempts: 1 Intrathecal Injection The patient received the following medication/s as an intrathecal injection: Bupivacaine 0.5% 2.4 ml Fentanyl ??15 mcg Morphine ??150 mcg Events/Notes Events: ??None Additional Notes: ??Patient tolerated procedure well. CSE placed without complication. Spinal medications given. No medications given through epidural. Epidural pulled at end of case, tip intact. Resident/EDUCATIONAL PROGRAMMING DIRECTOR: MD [place] Fellow: Attending Physician: ??MD Nisa ~~~~~~~~~~~~~~~~~~~~~~~~~~~~~~~~~~~~~~~~~~~~~~~~~~~~~~~~~~~~ Sanju Marcos MD [employer] SALESPERSON GS documented in this encounter Visit Diagnoses Not on filedocumented in this encounter Administered Medications Inactive Administered Medications - up to 3 most recent administrations Medication Order MAR Action Action Date Dose Rate Site BUpivacaine (PF) (MARCAINE) 0.5 % (5 mg/mL) injection PRN, Starting on Fri03/01/15 at 1436, Until Fri03/01/15 at 1632, Anesthesia Intra-op, Routine Given 03/01/2015 2:36 PM EDT 2.4 mLs clindamycin (CLEOCIN) injection PRN, Starting on Fri03/01/15 at 1449, Until Fri03/01/15 at 1632, Anesthesia Intra-op, Routine Given 03/01/2015 2:49 PM EDT 900 mg fentaNYL 50mcg/mL injection PRN, Starting on Fri03/01/15 at 1436, Until Fri03/01/15 at 1632, Pain, Anesthesia Intra-op, Routine Given 03/01/2015 2:36 PM EDT 15 mcg gentamicin (GARAMYCIN) injection PRN, Starting on Fri03/01/15 at 1441, Until Fri03/01/15 at 1632, Anesthesia Intra-op, Routine Given 03/01/2015 2:55 PM EDT 340 mg Given 03/01/2015 2:45 PM EDT 80 mg Given 03/01/2015 2:41 PM EDT 80 mg ketorolac (TORADOL) injection PRN, Starting on Fri03/01/15 at 1603, Until Fri03/01/15 at 1632, Pain, Anesthesia Intra-op, Routine Given 03/01/2015 4:03 PM EDT 15 mg lactated ringers infusion CONTINUOUS PRN, Starting on Fri03/01/15 at 1417, Until Fri03/01/15 at 1632, Anesthesia Intra-op New Bag 03/01/2015 2:17 PM EDT lactated ringers infusion CONTINUOUS PRN, Starting on Fri03/01/15 at 1417, Until Fri03/01/15 at 1632, Anesthesia Intra-op New Bag 03/01/2015 3:19 PM EDT New Bag 03/01/2015 2:17 PM EDT morphine (PF) (DURAMORPH) 0.5 mg/mL injection PRN, Starting on Fri03/01/15 at 1436, Until Fri03/01/15 at 1632, Pain, Anesthesia Intra-op, Routine Given 03/01/2015 2:36 PM EDT 150 mcg oxytocin (PITOCIN) 30 units in sodium chloride 0.9% 500 mL infusion PRN, Starting on Fri03/01/15 at 1511, Until Fri03/01/15 at 1632, Anesthesia Intra-op, Routine Given 03/01/2015 3:11 PM EDT 20 mLs oxytocin (PITOCIN) 30 units in sodium chloride 0.9% 500 mL infusion CONTINUOUS PRN, Starting on Fri03/01/15 at 1513, Until Fri03/01/15 at 1632, Anesthesia Intra-op, Routine New Bag 03/01/2015 3:13 PM EDT 500 mL/hr 500 mL/hr PHENYLephrine (ALDEN-SYNEPHRINE) 20 mg in sodium chloride 250 mL (standard ADULT & Kristyn greater than 20kg) infusion CONTINUOUS PRN, Starting on Fri03/01/15 at 1437, Until Fri03/01/15 at 1632, Anesthesia Intra-op, Routine Rate/Dose Change 03/01/2015 3:58 PM EDT 15 mcg/min 11.3 mL/hr Rate/Dose Change 03/01/2015 3:33 PM EDT 20 mcg/min 15 mL/h r New Bag 03/01/2015 2:37 PM EDT 40 mcg/min 30 mL/hr documented in this encounter Care Teams Speed Runner Relationship Specialty Start Date End Date Keyona Guevara MD [address] [place] [address] PCP - General 10/16/10 12/11/18 documented as of this encounter
--- OUTSIDE RECORDS SUMMARY | 2024-07-01 22:40 | XMS_ITS | Encounter Summary ---
[place] [address] Care Team Providers Care Marketing Team Lead Name Role Phone Keyona Guevara MD Primary Care Provider [phone] Reason for Visit * Reason Comments Diabetes Encounter Details Date Type Department Care Team (Latest Contact Info) Description 10/17/2014 10:00 AM EST Routine Obstetrics [place] [address] Marilee Kim, RN GA: 17w1d Discharge Disposition: Home Social History Tobacco Use Types Packs/Day Years Used Date Smoking Tobacco: Never Smokeless Tobacco: Never Alcohol Use Standard Drinks/Week Comments No 0 (1 standard drink = 0.6 oz pur e alcohol) Comments Yes Sex and Gender Information Value Date Recorded Sex Assigned at Not on file Gender Identity Not on file Sexual Orientation Not on file documented as of this encounter Last Filed Vital Signs Vital Sign Reading Time Taken Comments Blood Pressure 116/64 10/17/2014 11:19 AM EST Pulse - - Temperature - - Respiratory Rate - - Oxygen Saturation - - Inhaled Oxygen Concentration - - Weight 85.8 kg (189 lb 1.6 oz) 10/17/2014 11:19 AM EST Height - - Body Mass Index - - documented in this encounter Progress Notes * Marilee Kim, RN - 10/17/2014 11:19 AM EST Spring comes to 5L for split dose, weight based insulin teaching. I have previously discussed Spring's dosing with Dr. Pschirrer. The plan for Spring's insulin is as follows: AM MIXED: Novolog 13u NPH 8u PM: Novolog 6u with dinner NPH 6u at bed. Spring verbalizes understanding of insulin use. She is able to demonstrate appropriate techniques for drawing up insulin, mixing insulins, and injecting insulins. We discussed s/s of hypoglycemia. She has no questions at this time. She will call within one week to review the impact of the insulin on her blood sugars. She will also call sooner with questions or concerns. documented in this encounter Plan of Treatment Not on file documented as of this encounter Visit Diagnoses Diagnosis Abnormal glucose complicating Abnormal maternal glucose tolerance, complicating , childbirth, or the puerperium, unspecified as to episode of care documented in this encounter Care Teams Marketing Team Lead Relationship Specialty Start Date End Date Keyona Guevara MD [address] [place] [address] PCP - General 10/16/10 12/11/18 documented as of this encounter
--- OUTSIDE RECORDS SUMMARY | 2024-07-01 22:40 | XMS_ITS | Encounter Summary ---
Author Organization [facility] [place] [address] Care Team Providers Care Combine Driver Name Role Phone Keyona Guevara MD Primary Care Provider [phone] Encounter Details Date Type Department Care Team (Late st Contact Info) Description 11/16/2014 Telephone Obstetrics [place] [address] Marilee Kim RN Social History Tobacco Use Types Packs/Day Years [...] encounter Miscellaneous Notes * Telephone Encounter - Marilee Kim RN - 11/16/2014 9:07 AM EST Images from the original note were not included. I have called pSring to discuss her blood sugars. I have reviewed these with Dr. Valles. She would like Spring to increase her HS NPH to 10u. Spring is in agreement with this plan, and will send me her sugar log next week. documented in this encounter Plan of Treatment Not on file documented as of this encounter Visit Diagnoses Not on filedocumented in this encounter Care Teams Combine Driver Relationship Specialty Start Date End Date Keyona Guevara MD [address] [place] [address] PCP - General 10/16/10 12/11/18 documented as of this encounter
--- OUTSIDE RECORDS SUMMARY | 2024-07-01 22:40 | XMS_ITS | Encounter Summary ---
Author Organization [facility] [place] [address] Care Team Providers Care Business Intelligence Engineer Name Role Phone Keyona Guevara MD Primary Care Provider [phone] Reason for Visit * Reason Comments Advice Only Encounter Details Date Type Department Care Team (Late st Contact Info) Description 09/26/2014 1:00 PM EST Office Visit Obstetrics [place] [address] Lilli Steiner MD [facility] DR OBSTETRICS [place] [address] Supervision of high risk in second trimester Discharge Disposition: Home Social History Tobacco Use [...] Sign Reading Time Taken Comments Blood Pressure 118/62 09/26/2014 12:59 PM EST Pulse - - Temperature - - Respiratory Rate - - Oxygen Saturation - - Inhaled Oxygen Concentration - - Weight 83.4 kg (183 lb 12.8 oz) 014 12:59 PM EST Height - - Body Mass Index - - documented in this encounter Progress Notes * Lilli Steiner MD - 09/26/2014 1:28 PM EST Ms. Camacho presents at 14w1d as a transfer of care from Dr. Griselda Silver. Obstetric/gynecologic, medical, surgical, family and social history discussed. The group practice, resident and medical student involvement, and plan of care were reviewed with the patient, and all questions were answered. The patient has had two prior deliveries (Dr. Lange and Dr. Valles) here at [facility] and plans arepeat. This was a spontaneous, unanticipated , but welcomed. Her first two pregnancies were achieved with ART. She and her also have an adopted son. Aneuploidy screening was declined. She declines all screening except ultrasound; she states she understands that ultrasound is a screening tool and that should there be an unexpected finding we will need to address it. We reviewed her diagnosis of gestational diabetes, and her current glycemic control. We discussed the need for echocardiogram, as well as semiweekly testing beginning at 32 weeks. She will Mahesh Krishnan RN, with FSBS log between appointments. Plan for RTC in 4 weeks with morphology ultrasound. Lilli STEINER MD documented in this encounter Plan of Treatment Not on file documented as of this encounter Visit Diagnoses Diagnosis Supervision of high risk in second trimester Unspecified high-risk documented in this encounter Care Teams Business Intelligence Engineer Relationship Specialty Start Date End Date Keyona Guevara MD [address] [place] [address] PCP - General 10/16/10 12/11/18 documented as of this encounter
--- OUTSIDE RECORDS SUMMARY | 2024-07-01 22:40 | XMS_ITS | Encounter Summary ---
Author Organization [facility] [address] [place] [address] Care Team Providers Care Asphalt Screed Operator Name Role Phone Keyona Guevara MD Primary Care Provider [phone] Encounter Details Date Type Department Care Team (Latest Contact Info) Description 01/16/2015 10:45 AM EST Routine Obstetrics [place] [address] Karolyn Valles MD [facility] [address] OBSTETRICS [place] [address] GA: 30w1d Discharge Disposition: Home Social History Tobacco Use [...] Sign Reading Time Taken Comments Blood Pressure 128/68 01/16/2015 10:54 AM EST Pulse - - Temperature - - Respiratory Rate - - Oxygen Saturation - - Inhaled Oxygen Concentration - - Weight 97.1 kg (214 lb) 01/16/2015 10:54 AM EST Height - - Body Mass Index 33.59 10/31/2014 7:27 PM EST documented in this encounter Progress Notes * Karolyn Valles MD - 01/16/2015 10:47 AM EST Feels well FSBS excellent US in 2 weeks, start NST's documented in this encounter Plan of Treatment Not on file documented as of this encounter Visit Diagnoses Diagnosis GDM, class A2 Abnormal maternal glucose tolerance, complicating , childbirth, or the puerperium, unspecified as to episode of care documented in this encounter Care Teams Asphalt Screed Operator Relationship Specialty Start Date End Date Keyona Guevara MD [facility] [address] [place] [address] PCP - General 10/16/10 12/11/18 documented as of this encounter
--- OUTSIDE RECORDS SUMMARY | 2024-07-01 22:40 | XMS_ITS | Encounter Summary ---
Author Organization [facility] [place] [address] Care Team Providers Care Mechanical Spreader Operator Name Role Phone Keyona Guevara MD Primary Care Provider [phone] Encounter Details Date Type Department Care Team (Latest Contact Info) Description 10/31/2014 2:45 PM EST Initial Obstetrics [place] [address] CLINIC, Karolyn Phillips MD [facility] [address] OBSTETRICS [place] [address] GA: 19w1d Discharge Disposition: Home Social History Tobacco Use [...] Sign Reading Time Taken Comments Blood Pressure 112/62 10/31/2014 4:59 PM EST Pulse - - Temperature - - Respiratory Rate - - Oxygen Saturation - - Inhaled Oxygen Concentration - - Weight 87.3 kg (192 lb 8 oz) 10/31/2014 4:59 PM EST Height 170 cm (5' 6.93) 10/31/2014 7:27 PM EST Body Mass Index 30.21 10/31/2014 4:59 PM EST documented in this encounter Progress Notes * Marilee Kim RN - 10/31/2014 5:00 PM EST Spring comes to for her intake visit. She states that she is doing well. Her glycemic control has been very good since her insulin adjustments. VS and assessment as documented. Pt. Oriented to [facility] OBGYN service. Reviewed first trimester and precautions. Discussed benefits of . [facility] services offered, and pt. Educated how to contact. Questions answered as applicable. Medical history reviewed with Dr. Valles. She will connect with me next week to review blood sugars. * Karolyn Valles MD - 10/31/2014 3:20 PM EST All FSBS in target labs and PE today. RTC 4 weeks documented in this encounter Plan of Treatment Scheduled Orders Name Type Priority Associated Diagnoses Orde r Schedule Hepatitis B Surface Antigen Lab Routine Expected: 10/31/2014 (Approximate), Expires: 10/31/2015 documented as of this encounter Procedures Procedure Name Priority Date/Time Associated Diagnosis Comments GC/CHLAMYDIA Routine 10/31/2014 6:01 PM EST GC/CHLAM Routine 10/31/2014 6:01 PM EST HEMOGRAM Routine 10/31/2014 3:49 PM EST SCREEN Routine 10/31/2014 3:49 PM EST DIFFERENTIAL, AUTOMATED Routine 10/31/2014 3:49 PM EST SYPHILIS ANTIBODY SCREEN WITH REFLEX Routine 10/31/2014 3:49 PM EST ABO/RH TYPING Routine 10/31/2014 3:49 PM EST RUBELLA ANTIBODY, IGG Routine 10/31/2014 3:49 PM EST HIV SCREEN, 4TH GENERATION ([facility]/CGP/APD/NLH) Routine 10/31/2014 3:49 PM EST HEPATITIS B SURFACE ANTIGEN Routine 10/31/2014 3:49 PM EST ANTIBODY SCREEN Routine 10/31/2014 3:49 PM EST VARICELLA ZOSTER ANTIBODY, IGG Routine 10/31/2014 3:49 PM EST documented in this encounter Results * GC/Chlam (10/31/2014 6:01 PM EST) Pathologist [facility] GC Gene Amp Negative Negative CERNER MILLENNIUM Comment: The only FDA approved specimen types for this assay are cervix, vagina, urethra and urine. ??The sensitivity and specificity of the assay for other specimen types has not been determined. GC Source Cervical CERNER MILLENNIUM Chlamydia Gene Amp Negative Negative CERNER MILLENNIUM Comment: The only FDA approved specimen types for this assay are cervix, vagina, urethra and urine. ??The sensitivity and specificity of the assay for other specimen types has not been determined. Chlm Source Cervical CERNER MILLENNIUM Specimen of unknown material (specimen) 10/31/2014 6:01 PM EST 10/31/2014 6:01 PM EST Narrative Resulting Agency Comment Spec In Lab Karolyn Valles MD MICROBIOLOGY - GENER AL ORDERABLES CERNER MILLENNIUM * (ABNORMAL) Differential, Automated (10/31/2014 3:49 PM EST) Pathologist [facility] Neutrophil % 66.8 % CERNER MILLENNIUM Neutrophil Absolute 6.77(H) 1.50 - 6.30 x10(3)/mc L CERNER MILLENNIUM Lymph % 23.8 % CERNER MILLENNIUM Lymphocytes Abs 2.4 1.0 - 3.6 x10(3)/mc L CERNER MILLENNIUM Monocyte % 8.1 % CERNER MILLENNIUM Monocyte Abs 0.8 0.2 - 1.0 x10(3)/mc L CERNER MILLENNIUM Eos % 0.7 % CERNER MILLENNIUM Eosinophils Abs 0.1 0.0 - 0.5 x10(3)/mc L CERNER MILLENNIUM Basophil % 0.1 % CERNER MILLENNIUM Baso Absolute 0.0 0.0 - 0.2 x10(3)/mc L CERNER MILLENNIUM Immature Gran % 0.50 % CERN ER MILLENNIUM Comment: Immature granulocytes(IG's)percentage and absolute count will include metamyelocytes, myelocytes, and promyelocytes. Blood smears from CBCs yielding IG's will be scanned manually for concordance. If this scan disagrees with the automated IG or if promyelocytes are noted, a manual differential will be performed. Immature Gran Absolute 0.05 0.00 - 0.05 x10(3)/mc L CERNER MILLENNIUM Blood specimen (specimen) 10/31/2014 3:49 PM EST 10/31/2014 3:59 PM EST Narrative Resulting Agency Comment Spec In Lab Karolyn Valles MD HEMATOLOGY ORDERABLE S CERNER MILLENNIUM * (ABNORMAL) Hemogram (10/31/2014 3:49 PM EST) White Blood Cell 10.1(H) 4.0 - 10.0 x10(3)/mc L CERNER MILLENNIUM Red Blood Cell 3.90(L) 3.93 - 5.22 x10(6)/mc L CERNER MILLENNIUM Hemoglobin 12.2 11.2 - 15.7 gm/dL CERNER MILLENNIUM Hematocrit 35.7 34.0 - 45.0 % CERNER MILLENNIUM Mean Cell Volume 91.5 79.0 - 94.0 fL CERNER MILLENNIUM Mean Cell Hemoglobin 31.3 26.6 - 32.2 pg CERNER MILLENNIUM Mean Cell Hemoglobin Concentration 34.2 32.0 - 36.5 gm/dL CERNER MILLENNIUM Platelet 211 145 - 370 x10(3)/mc L CERNER MILLENNIUM RDW Standard Deviation 47.2(H) 35.0 - 46.0 fL CERNER MILLENNIUM RDW coefficient of variation 14.2 10.9 - 14.4 % CERNER MILLENNIUM Mean Platelet Volume 9.5 9.0 - 12.0 fL CERNER MILLENNIUM Blood specimen (specimen) 10/31/2014 3:49 PM EST 10/31/2014 3:59 PM EST Narrative Resulting Agency Comment Spec In Lab Karolyn Valles MD HEMATOLOGY ORDERABLE S Performing Organization Address [facility] Phone Number [facility] * Rubella Antibody, IgG (10/31/2014 3:49 PM EST) Rubella Antibody IgG Positive Positive [facility] Comment: Please note: ??A positive result for this assay indicates that antibody levels are >or= 10.0 IU/mL and is considered to be an indicator of positive immune status. Blood specimen (specimen) 10/31/2014 3:49 PM EST 10/31/2014 3:59 PM EST Narrative Resulting Agency Comment Spec In Lab Karolyn Valles MD CHEMISTRY ORDERABLES Performing Organization Address [facility] Phone Number [facility] * Hepatitis B Surface Antigen (10/31/2014 3:49 PM EST) Hepatitis B Surface Antigen Negative Negative [facility] Blood specimen (specimen) 10/31/2014 3:49 PM EST 10/31/2014 3:59 PM EST Narrative Resulting Agency Comment Spec In Lab Karolyn Valles MD CHEMISTRY ORDERABLES Performing Organization Address [facility] Phone Number [facility] * Syphilis Antibody, IgG (10/31/2014 3:49 PM EST) Syphilis IgG Neg Neg [facility] Blood specimen (specimen) 10/31/2014 3:49 PM EST 11/01/2014 7:41 AM EST Narrative Resulting Agency Comment Spec In Lab Karolyn Valles MD CHEMISTRY ORDERABLES Performing Organization Address [facility] Phone Number [facility] * Antibody screen (10/31/2014 3:49 PM EST) Ab Screen Interp Negative CERHÉCTOR SHETH Expires at 2359 on: [id number] SARA SHETH Blood specimen (specimen) 10/31/2014 3:49 PM EST 10/31/2014 3:57 PM EST Narrative Resulting Agency Comment Spec In Lab Karolyn Valles MD BLOOD BANK LAB ORDER CEDRICK Performing Organization Address City/[facility]/ZIP Co de Phone Number SARA SHETH * ABO/Rh Typing (10/31/2014 3:49 PM EST) ABORH Type A Pos SARA SHETH Blood specimen (specimen) 10/31/2014 3:49 PM EST 10/31/2014 3:57 PM EST Narrative Resulting Agency Comment Spec In Lab Karolyn Valles MD BLOOD BANK LAB ORDER CEDRICK Performing Organization Address [facility] Co de Phone Number SARA SHETH * Varicella zoster Antibody, IgG (10/31/2014 3:49 PM EST) Varicella Zoster Antibody IgG Pos SARA SHETH Blood specimen (specimen) 10/31/2014 3:49 PM EST 11/01/2014 7:41 AM EST Narrative Resulting Agency Comment Spec In Lab Karolyn Valles MD IMMUNOLOGY ORDERABLE S Performing Organization Address [facility] Co de Phone Number SARA SHETH * HIV (10/31/2014 3:49 PM EST) HIV 1/2 Ab Negative Negative SARA SHETH Blood specimen (specimen) 10/31/2014 3:49 PM EST 10/31/2014 3:59 PM EST Narrative Resulting Agency Comment Spec In Lab Karolyn Valles MD CHEMISTRY ORDERABLES Performing Organization Address [facility] Co de Phone Number SARA SHETH documented in this encounter Visit Diagnoses Diagnosis state, incidental documented in this encounter Care Teams Mechanical Spreader Operator Relationship Specialty Start Date End Date Keyona Guevara MD [facility] [address] [place] [address] PCP - General 10/16/10 12/11/18 documented as of this encounter
--- OUTSIDE RECORDS SUMMARY | 2024-07-01 22:40 | XMS_ITS | Encounter Summary ---
[place] [address] Care Team Providers Care Account Information Clerk Name Role Phone Unavailable Primary Care Provider Unavailabl e Encounter Details Date Type Department Care Team (Late st Contact Info) Description 09/28/2010 11:00 AM EDT Procedure visit Obstetrics [place] [phone] Social History Tobacco Use Types Packs/Day Years [...]
--- OUTSIDE RECORDS SUMMARY | 2024-07-01 22:40 | XMS_ITS | Encounter Summary ---
Author Organization [facility] [place] [address] Care Team Providers Care Chairman And Ceo Name Role Phone Chantel Guevara MD Primary Care Provider [phone] Encounter Details Date Type Department Care Team (Late st Contact Info) Description 03/01/2015 1:45 PM EDT - 03/01/2015 4:13 [place] [address] Griselda Hampton MD [facility] DR OBSTETRICS & [place] [address] @ DELIVERY (WRVU 16.13) Social History Tobacco Use Types Packs/Day Years [...] this in detail. Call your doctor or teaseler for: ??? Fever more than 100.5 ??? [...] follow up appointment. You may call the [facility] at any time for guidance or for answers to questions that come up prior to you follow up appointment. Your [facility] Provider can be reached during office hours at ??? Midwives ??? Obstetricians ??? [facility] Follow-up Clinic AFTER OFFICE HOURS for the deckhand fishing vessel or teaseler percussion instrument tuner Provider electronic signature confirms that discharge instructions [...] for the patient's : Doug, Baby Girl [[id number]] Delivery Date and Time:03/01/2015 3:11 PM Delivery [...] Patient is doing well without problems. ?? Infant nutrition: pumping for infant ?? Contraception: bilateral tubal ligation ?? care: Routine 6 week clinic visit Assessment Management of Additional Medical Issues ?? GDMA2: requires 6 week glucola challenge This patient was seen and discussed on rounds. Blanquita Ca MD PGY1 03/04/2015 * Zia Gan MD - 03/03/2015 6:40 AM EDT Delivery Note Information for the patient's : Doug Baby Girl [[id number]] Delivery Date and Time:03/01/2015 3:11 PM Delivery [...] without issues. She is pumping for her infant but is not getting much. She is [...] well without problems. ?? nutrition: pumping for in ICN ?? Contraception: bilateral tubal ligation [...] 3:05 PM EDT Care Management Assessment (Clinical Supervisor Feed Mill) Patient Information has been reviewed in multi-disciplinary [...] older children ages 6 and 4 Where: [place], [place] Approx time in community: Year(s) Social Resources: Pleasant intact couple with third child. 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 They have [employer] insurance. 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 Supportive family/friend network. Extended family in area for support: Yes Cognitive Resources: Intact Childbirth Education: Yes/No Educational Level: College, PROGRAM TRAINER Functional Status: Ambulatory, Independent, Without limitations. C/S recovery with limitations on lifting/driving x 2 weeks. Complications requiring follow-up: Financial Resources: Adequate Health Insurance Coverage: [facility] Senior Research Executive Chosen: Chaitanya Puente MD Baby's Name: Ingrid Richardson Anticipated Continuing Care Needs: Physical: Recovery from . Initiation of . Emotional: Adjustment to period Psychological: Known hx of anxiety/depression. At risk for PPD. Referred to social service manager for assessment and support while inpatient. Educational: [...] St resource sheet provided. Vt Better Beginnings: (De Blue Cross/Blue Shield) Yes De [facility] ([facility]): De Parent Child Center: [facility] DME ordered : None Breast Pump: Has obtained through insurance. Other: Have infant car seat, own transportation, and adequate family support. Will revisit prior to discharge regarding home care over weekend. CRC: Martha ESTEVEZ/ Arash Ricketts. Beeper [id number] * Zia Gan MD - 03/02/2015 6:11 AM EDT Delivery Note Information for the patient's : Doug, Baby Girl [[id number]] Delivery Date and Time:03/01/2015 3:11 PM Delivery [...] well without problems. ??? nutrition: pumping for infant in ICN ??? Contraception: bilateral tubal ligation [...] EDT 1920: pt vomited about 800mL. MD Lopez aware, IV zofran ordered and admin per JAN. * Griselda Hampton MD - 03/01/2015 1:49 PM EDT Nonstress Test, Fetus A NST Start Time: 1029 (03/01/15 134) HR (beats/min): 150 (03/01/15 1347) Variability: moderate (amplitude range 6 to 25 bpm) (03/01/15 134) Accelerations: present (03/01/151346) Decelerations: none (03/01/151346) Contraction Frequency (min): rare (03/01/151346) Nonstress Test Interpretation: Reactive, >32 weeks: two 15 bpm accelerations lasting 15 seconds (03/01/151346) Overall Impression: Reassuring for gestational age (03/01/151346) Comments: (02/25/151348) Macario Musa MD PGY3 03/01/2015 [...] have bleeding. Griselda Hampton MD * Genesis Dukes - 03/01/2015 1:22 PM EDT Nutrition Services [...] BP in the past, informed the diet aircraft electronics technical officer that it continues to be a problem. Nutrition Plan: Continue current diet. Continue snacks. Encourage good po intake. Monitor weight. Support and encouragement provided. Nutrition services to follow weekly thru hospital course unless consulted in the interim. Genesis Dukes, AGUILA * Mayte Ayala RN - 03/01/2015 11:11 AM EDT 03/01/15 1107 Uterine Activity Assessment Method palpation;TOCO (external tocotransducer) Contraction Frequency (min) occ Contraction Duration (sec) 60 Contraction Intensity mild by palpation Uterine Resting Tone soft by palpation Assessment Movement active Mode continuous external HR (beats/min) 155 Variability moderate (amplitude range 6 to 25 bpm) Accelerations present Decelerations none Pt off EFM per Dr Smith. FOY team aware of new bleeding. Will continue [...] discussed during MDR in the presence of CALE Cano Attending. Vinicius Mack MD PGY4 03/01/2015 MFM [...] hemorrhage Signed Zia Gan MD 03/01/2015 * Lencho Macario Lowell - 02/28/2015 5:47 PM EDT Nonstress Test, Fetus A NST Start Time: 1655 (02/28/151744) HR (beats/min): 130 (02/28/151744) Variability: moderate (amplitude range 6 to 25 bpm) (02/28/151744) Accelerations: present (02/28/151744) Decelerations: none (02/28/151744) Contraction Frequency (min): none (02/28/151744) Nonstress Test Interpretation: Reactive, >32 weeks: two 15 bpm accelerations lasting 15 seconds (02/28/15 1745) Overall Impression: Reassuring for gestational age (02/28/15 1745) Comments: (02/25/15 9213) Macario Musa MD PGY3 02/28/2015 Associated attestation [...] and the plan discussed with Dr. Gan, [facility] Attending. Macario Musa MD PGY3 02/28/2015 MFM [...] her activity back to its prior level. Csarean section is scheduled for 37 weeks [...] for gestational age (02/27/15 1103) Comments: (02/25/15 1349) Vinicius Mack MD PGY4 02/27/2015 I personally [...] and the plan discussed with Dr. Gan, [facility] Attending. Vinicius Mack MD PGY4 02/26/2015 MFM [...] Accelerations: present (02/25/15 1349) Decelerations: none (02/25/15 1349) Contraction Frequency (min): absent (02/25/151348) Nonstress Test Interpretation: Reactive, >32 weeks: two 15 bpm accelerations lasting 15 seconds (02/25/151348) Overall Impression: Reassuring for gestational age (02/25/151348) Comments: (02/25/151348) NST Stop Time: 1108 Carly [...] and the plan discussed with Dr. Gan, [facility] Attending. Macario Musa MD PGY3 02/25/2015 MFM [...] Nonstress Test, Fetus A NST Start Time: 811 (02/24/15836) HR (beats/min): 150 (02/24/15836) Variability: moderate (amplitude range 6 to 25 bpm) (02/24/15836) Accelerations: present (02/24/15836) Decelerations: none (02/24/15836) Contraction Frequency (min): none (02/24/15836) Nonstress Test Interpretation: Reactive, >32 weeks: two 15 bpm accelerations lasting 15 seconds (02/24/15836) Overall Impression: Reassuring for gestational age (02/24/15836) Comments: n/a (02/18/15 1015) Vinicius Mack MD [...] MDR with charge nurse, day nurse and Dr. Steiner MFM Attending. Vinicius Mack MD PGY4 02/24/2015 Maternal [...] MDR with charge nurse, day nurse and Dr. Steiner [facility] Attending. Macario Musa MD PGY3 02/23/2015 Maternal [...] consulted in the interim. AGUILA Hirsch * Griselda Hampton MD - 02/22/2015 2:06 [...] (02/21/15 1634) Contraction Frequency (min): None (02/21/15 163) Nonstress Test Interpretation: Reactive, >32 weeks: two 15 bpm accelerations lasting 15 seconds (02/21/15 1634) Overall Impression: Reassuring for gestational age (02/21/15 1634) Comments: n/a (02/18/15 1015) Hermiol Puckett MD PGY-3 Associated attestation - Sanju [...] the plan discussed with CALE Fox Attending. iVnicius Mack MD PGY4 02/19/2015 Maternal Medicine Attending [...] and completed during interdisciplinary rounds with MFM, hemodialysis charge nurse and bedside RN. Tiffanie Gonzalez MD PGY3 [...] 15 bpm accelerations lasting 15 seconds (02/14/15 174) Overall Impression: Reassuring for gestational age (02/14/15 174) Comments: Hermilo Puckett MD PGY-3 I personally reviewed and interpreted this NST. Sumaya Ontiveros MD * Belen Williamson - 02/14/2015 3:43 PM EDT Tub Wash Operator Encounter Note Patient Name: Martinez Richardson : [id number] MR#: [id number] Admit Date: 01/20/2015 4:44 PM Hospital Day 26 days Narrative: Extended follow-up visit with pt. Assessment: aMrtinez was warmly welcoming of visit, reporting that [...] she andher family are active members of [employer] in [place], [place]. Martinez noted her deep appreciation for [...] support and affirmed her openness/desire for follow-up finisher denture visit. Follow-up: Follow-up finisher denture visit with pt, for offer of spiritual [...] management This note was written by Annabel Josehp MD on IDR. Zee Puckett MD PGY3 [...] hemorrhage prior. I will discuss this with [facility] MFM team. FSBS improved today, no need for treatment change. Signed Zia Gan MD 02/14/2015 * Vinicius Mack MD - 02/13/2015 12:51 PM EDT NST Nonstress Test, Fetus A NST Start Time: 1109 (02/13/15 1148) HR (beats/min): 145 (02/13/15 1148) Variability: moderate (amplitude range 6 to 25 bpm) (02/13/15 1148) Accelerations: present (02/13/15 114) Decelerations: variable;other (see comments) (02/13/15 114) Contraction Frequency (min): occasional (02/13/15 114) Nonstress Test Interpretation: Reactive, >32 weeks: two 15 bpm accelerations lasting 15 seconds (02/13/15 1148) Overall Impression: Reassuring for gestational age (02/13/15 114) Comments: variable at 1124 to a alexey of 90bmp for ~20 seconds associated with ? ctx (02/13/15 114) Vinicius Mack MD PGY4 02/13/2015 Associated attestation [...] Nonstress test Insulin Lorri Valles MD * Margarita Griselda K - 02/11/2015 12:01 PM EDT ANTEPARTUM NST [...] and completed during interdisciplinary rounds with MFM, hemodialysis charge nurse and bedside RN. Ailyn Brand MD PGY4 [...] Will repeat NST in the afternoon. (02/01/15 6873) Vinicius Mack MD PGY4 02/09/2015 I personally [...] This note was written by Dr. Zee Izzano and myself and completed during interdisciplinary rounds with MFM, hemodialysis charge nurse and bedside RN. Ailyn Brand MD PGY4 [...] EFM. Pt denies pain or contractions. * Yvonne Chung MD - 02/08/2015 3:35 PM EDT [...] and completed during interdisciplinary rounds with MFM, hemodialysis charge nurse and bedside RN. Ailyn Brand MD PGY4 [...] and completed during interdisciplinary rounds with MFM, hemodialysis charge nurse and bedside RN. * Zee Puckett MD - 02/07/2015 5:06 PM EDT Antepartum NST Nonstress Test, Fetus A NST Start Time: 1339 (02/07/15 1705) HR (beats/min): 135 (02/07/15 1705) Variability: moderate (amplitude range 6 to 25 bpm) (02/07/15 170) Accelerations: present (02/07/151704) Decelerations: none (02/07/151704) Contraction Frequency (min): none (02/07/151704) Nonstress Test Interpretation: Reactive, >32 weeks: two 15 bpm accelerations lasting 15 seconds (02/07/151704) Overall Impression: Reassuring for gestational age (02/07/151704) Comments: variable contraction at 0910 to 110 bpm. Will repeat NST in the afternoon. (02/01/15 1623) Hermilo Puckett MD PGY-3 Associated attestation - Sanju Marcos MD - 02/07/2015 5:16 PM EDT I personally reviewed and interpreted this NST. Sanju Marcos MD * Lorri Sequeira, ALEJANDRINA - 02/07/2015 2:37 PM EDT Nutrition Services [...] Nonstress Test, Fetus A NST Start Time: 09 (02/06/151654) HR (beats/min): 150 (02/06/151654) Variability: moderate [...] myself and completed during interdisciplinary roundswith MFM, hemodialysis charge nurse and bedside RN. Ailyn Brand MD PGY4 [...] Start Time: 1004 (02/05/151616) HR (beats/min): 155 (02/05/151616) Variability: moderate (amplitude range 6 to 25 [...] been weighted since 01/30. It appears she [id number] pound son admission. We will check her weight today, we changed her diet. We will continue to follow her FSBS and adjust her insulin. Delivery Indications: progressive labor, non reassuring status and hemmorhage Zia Gan MD 02/05/2015 * Chanelle Mackey RN - [...] time. Call light within reach. * Zia Gna MD - 02/04/2015 6:44 AM EDT Obstetrical [...] very much enjoyed her visit with our finisher denture yesterday. She would welcome pet therapy or [...] Time: 1918 (02/03/151455) HR (beats/min): 150 (02/03/15 1456) Variability: moderate (amplitude range 6 to 25 bpm) (02/03/15 145) Accelerations: present (02/03/15 145) Decelerations: none (02/03/151455) Contraction Frequency (min): None (02/03/151455) Nonstress Test Interpretation: Reactive, >32 weeks: two 15 bpm accelerations lasting 15 seconds (02/03/15 145) Overall Impression: Reassuring for gestational age (02/03/15 145) Ailyn Brand MD * Lorri Valles MD [...] very much enjoyed her visit with our finisher denture yesterday. She would welcome pet therapy or [...] was completed during interdisciplinary rounds with CALE, revenue stamper , CRC, hemodialysis charge nurse andbedside RN. Ailyn Brand MD PGY4 MFM [...] Brand notified of pt condition, strip reviewed. 1719- Pt reports no pain or ctx, vale [...] Test, Fetus A NST Start Time: 0936 (02/02/151647) HR (beats/min): 150 (02/02/151647) Variability: moderate (amplitude range 6 to 25 bpm) (02/02/151647) Accelerations: present (02/02/15 1006) Decelerations: none (02/02/151647) Contraction Frequency (min): None (02/02/151647) Nonstress Test Interpretation: Reactive, >32 weeks: two 15 bpm accelerations lasting 15 seconds (02/02/151647) Overall Impression: Reassuring for gestational age (02/02/151647) Comments: variable contraction at 0910 to 110 bpm. Will repeat NST in the afternoon. (02/01/151622) Ailyn Brand MD Attending note: I have [...] Belen Williamson - 02/01/2015 1:19 PM EDT Tub Wash Operator Encounter Note Patient Name: Martinez Richardson : [id number] MR#: [id number] Admit Date: 01/20/2015 4:44 PM Hospital Day 12 days Narrative: Initial visit with pt while rounding on BP. Assessment: Pt was open to visit, and introduced this sql report writer to her son and mother who were also present visiting at this time. We briefly spoke about towel inspector services and pt reflected on her extended unexpected BP hospitalization. She affirmed that she feels she is coping well. She identifies as Jainism and she and her kids talk about their Friday School experiences each week. She does not feel that she has any specific spiritual care needs at this time. Intervention and Outcome: Intro to towel inspector services. Offer of spiritual care support and provided contact info. Pt offeredappreciation for this and is aware of ongoing support available, should she desire. Follow-up: Tub Wash Operator remains available for follow-up visit for spiritual [...] yesterday, repeat pending today Results for MARTINEZ RIHCARDSON ( ) as of 01/31/2015 10:30 01/30/2015 [...] paperwork A/P: Paperwork completed and faxed to [facility], Teresa Magana Adina Calle RNC, [facility] * Zee Puckett MD - 01/30/2015 10:55 AM EDT Nonstress Test, Fetus A NST Start Time: 933 (01/30/15 1054) HR (beats/min): 145 (01/30/15 1054) Variability: moderate (amplitude range 6 to 25 bpm) (01/30/15 1054) Accelerations: present (01/30/15 1054) Decelerations: none (01/30/15 1054) Contraction Frequency (min): single (01/30/15 1018) Nonstress [...] Fetus A NST Start Time: 1024 (01/29/15 104) HR (beats/min): 140 (01/29/15 1042) Variability: moderate (amplitude range 6 to 25 bpm) (01/29/15 1042) Accelerations: present (01/29/15 104) Decelerations: none (01/29/15 1042) Contraction Frequency (min): [...] Ailyn Brand MD PGY4 Associated attestation - iVnicius Godinez MD - 01/31/2015 11:46 AM EDT [...] MD Burnham has viewed strip. * Cyrus Bunrham MD - 01/28/2015 11:18 AM EST Nonstress Test, Fetus A NST Start Time: 09 (01/28/15 1114) HR (beats/min): 145 (01/28/15 1114) Variability: moderate (amplitude range 6 to 25 bpm) (01/28/15 111) Accelerations: present (to 180) (01/28/151113) Decelerations: none (01/28/151113) Contraction Frequency (min): denies [...] S/p BMZ S/p MgSO4 Titrate insulin * Yovnne Chung MD - 01/27/2015 9:01 PM EST [...] unless consulted in the interim. Tavia Garg Christianne Martin RN - 01/27/2015 11:39 AM EST 0730: Report received from Bridget Perez RN. 0900: No complaints, denies contractions, denies bleeding. Call fry within reach. Patient has ordered breakfast. 1115: One hour post prandial blood sugar 135. 1430: One hour post prandial blood sugar 129. Zia Porras MD - 01/27/2015 5:27 AM EST Obstetrical [...] and completed during interdisciplinary rounds with MFM, revenue stamper , CRC, hemodialysis charge nurse and bedside RN. Signed: Ailyn Brand MD, [...] 150, moderate variability, accelerations present, no decelerations [place]: irregular 2-5 minutes 29 y/o at 31w4d [...] she is very worried about having a but is also so tired with being [...] pt to be placed on the monitor. 2029: TOCO reading contractions. Went in to assess [...] water and encouraged to increase po intake. 2199: Pt increasingly more uncomfortable. Attempting to reposition herself in bed with contractions. Discussed increasing discomfort with Drs. Puckett and Jose. Plan of care discussed and requested MD team to come assess pt. 2215: Dr. Ritter in to assess patient. Plan to begin magnesium for neuroprotection. 2224: Dr. Puckett in to assess patient. Lolita Chu, margarine churn operator notified of change in patient status. 2239: Report and care of pt to Kandi [...] Denies LOF or abdominal pain. Filed Vitals: 01/26/153 BP: 113/67 Pulse: 103 Temp: 36.5 ??C (97.7 ??F) Resp: 18 Abd: non-tender, no masses palpable, contractions palpating moderate Cervix: closed/long/high, no bleeding appreciated, no fluid appreciated. FHR 150, mod, accelerations present, decels absent [place]: irregular 2-5 minutes 29 y/o at 31w4d [...] delivery. Yesenia Donahue MD * Ilana Martinez I RN - 01/26/2015 8:33 PM EST Pt [...] and completed during interdisciplinary rounds with MFM, revenue stamper MD, CRC, hemodialysis charge nurse and bedside RN. Signed: Ailyn Brand MD, [...] and completed during interdisciplinary rounds with MFNikos, revenue stamper MD, CRC, hemodialysis charge nurse and bedside RN. Signed: Ailyn Brand MD, [...] Start Time: 1130 (01/24/151645) HR (beats/min): 150 (01/24/15 164) Variability: moderate (amplitude range 6 to 25 bpm) (01/24/15 164) Accelerations: present (01/24/15 164) Decelerations: none (01/24/15 164) Contraction Frequency (min): none (01/24/15 1230) Nonstress Test Interpretation: Reactive <32 week: two 10 bpm accelerations lasting 10 seconds (01/24/15 164) Overall Impression: Reassuring for gestational age (01/24/15 164) Hermilo Puckett MD PGY-3 Associated attestation - Sanju Marcos MD - 01/25/2015 10:08 AM EST I personally reviewed and interpreted this NST. Sanju Marcos MD * Adina Calle RN - 01/24/2015 12:17 PM EST Office of Care Management (OCM) / Clinical Supervisor Feed Mill (CRC)/ Initial Assessment Discussed patient with Provider [...] older children ages 6 and 4 in [place], [place] ([facility]). 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 She is consented for a Repeat C/Section with Tubal Ligation, and is currently bleed free day # 2/7. ADVANCE DIRECTIVES: None HEALTH /PRESCRIPTION COVERAGE: [facility] CURRENT HOME/COMMUNITY SERVICES/EQUIPMENT: DME: None Home Health Agency: None prior to admission Other: None PROGRAM TRAINER REFERRAL: Notified PROGRAM TRAINER - for Support/Financial/Medication Assistance; See PROGRAM TRAINER notes for further needs. PRIMARY CARE PHYSICIAN: CHANTEL GUEVARA MD RANJANA [phone] [facility] [id number] POTENTIAL DISCHARGE NEEDS: Dependent on delivered vs [...] bleeding - consented for section and signed [facility]'s TOLAC vs ERCS consent form yesterday. - [...] and completed during interdisciplinary rounds with MFM, revenue stamper , CRC, hemodialysis charge nurse and bedside RN. Signed: Ailyn Brand MD, [...] Test, Fetus A NST Start Time: 1308 (01/23/15 1716) HR (beats/min): 150 (01/23/151715) Variability: moderate (amplitude [...] myself and completed during interdisciplinary rounds with CALE, revenue stamper , CRC, hemodialysis charge nurse and bedside RN. Signed: Zee Puckett MD, [...] Fetus A NST Start Time: 1104 (01/22/15 163) HR (beats/min): 150 (01/22/15 163) Variability: moderate (amplitude range 6 to 25 bpm) (01/22/15 163) Accelerations: present (to 185) (01/22/15 163) Decelerations: none (01/22/15 163) Contraction Frequency (min): single contracction vs. valsalva/repositioning during NST (01/22/15 163) Nonstress Test Interpretation: Reactive <32 week: two 10 bpm accelerations lasting 10 seconds (01/22/15 163) Overall Impression: Reassuring for gestational age (01/22/15 163) Cyrus Burnham MD PGY4 I personally reviewed [...] EST Obstetrical Admission Note Initial Care Provider: [facility] Chief Complaint: Martinez Richardson was admitted today [...] 31 x 5/16 Syringe 1 Box by [facility].(Non- Drug; Combo Route) route 3 times daily. [...] dinner. Patient discussed with Dr Bennett, attending deckhand fishing vessel, with whom the plan was formulated. Tiffanie Gonzalez MD, PGY3 01/20/2015 documented in this encounter Miscellaneous Notes * Discharge Summary - Macario Musa Lowell - 03/05/2015 9:06 PM EDT . Discharge Summary Patient Name: Martinez Richardson Patient Age: 29 y.o. Language: Kittitian Race: White Ethnicity: Not nor Admit date: 01/20/2015 Discharge date: 03/04/2015 Attending Physician: No att. providers found Discharge Physician: Dr. Vinicius Maravilla Care Provider: [facility] Follow-up Recommendations for Providers: Routine 6 week visit with glucola challenge at that time Final placenta pathology Inpatient Provider Contact Information: [facility] INVASIVE CARDIOLOGIST Department, Discharge Diagnoses (Hospital Problems) and Secondary [...] and Events Martinez was admitted to the [facility] for evaluation and management of her vaginal [...] resulted in delivery of a liveborn female infant with Apgars of 8 and 9, weighing 2965g. For further details please see the operative report.The patient recovered well following section. By the day of discharge, the patient was eating, drinking, voiding, and ambulating without difficulty. She had had a bowel movement. She was breast feeding the infant and was using bilateral tubal ligation for contraception. Her pain was controlled with PO pain medications and her lochia was mild. Her hemoglobin decreased appropriately. She denied F/C/N/V/CP/SOB/PARR/leg pain. Delivery Information Information for the patient's : Doug, Baby Brenna [[id number]] INFORMATION Baby Brenna Richardson 03/01/2015 3:11 PM by Lower Segment Transverse Sex: female Gestational Age: 36w3d [place] Measurements: Weight: 6 lb 8.6 oz (2965 [...] this in detail. Call your doctor or teaseler for: ??? Fever more than 100.5 ??? [...] follow up appointment. You may call the [facility] at any time for guidance or for answers to questions that come up prior to you follow up appointment. Your [facility] Provider can be reached during office hours at ??? Midwives ??? Obstetricians ??? [facility] Follow-up Clinic AFTER OFFICE HOURS for the deckhand fishing vessel or teaseler percussion instrument tuner Provider electronic signature confirms that discharge instructions [...] Review Outcome: Ongoing (Interventions Implemented as Appropriate) 03/03/1512803/03/152037 Coping/Psychosocial Response Interventions Plan of Care Reviewed [...] Outcome: Ongoing (Interventions Implemented as Appropriate) 02/26/15 19202/28/15 0800 03/02/15 1948 Safety Interventions Safety Precautions/Fall [...] Ongoing (Interventions Implemented as Appropriate) 03/03/15 0129 03/03/15821 Coping/Psychosocial Response Interventions Plan of Care Reviewed [...] Outcome: Ongoing (Interventions Implemented as Appropriate) 02/26/15 19202/28/15 0803/02/15 194 Safety Interventions Safety Precautions/Fall Reduction [...] Lee Fall Risk -- -- -- 03/03/15 08 Safety Interventions Safety Precautions/Fall Reduction -- [...] Outcome: Ongoing (Interventions Implemented as Appropriate) 03/03/15 012 Following Section Delivery Problems Assessed ( Following Section Delivery) all Problems Present ( Following Section Delivery) none Comments: OUTCOME EVALUATION NOTE: OUTCOME SUMMARY: Martinez continues to attempt to breastfeed. Is attentive to . Is pumping and feeding via SNS every [...] amounts which is than fed to the infant. PLAN MOVING FORWARD: Continue to encourage pain [...] Outcome: Ongoing (Interventions Implemented as Appropriate) 02/26/15 19202/28/15 0800 03/02/15 0312 Safety Interventions Safety Precautions/Fall [...] Outcome: Ongoing (Interventions Implemented as Appropriate) 03/02/15 110 Safety Interventions Isolation Precautions standard precautions maintained [...] Implemented as Appropriate) 02/26/15 1927 02/28/15 0800 03/01/15 0730 Safety Interventions Safety Precautions/Fall Reduction fall [...] Lee Fall Risk -- Med -- 03/02/15 031 Safety Interventions Safety Precautions/Fall Reduction -- Musculoskeletal Interventions Activity/Level of Assistance ambulated Positioning -- Muscle Strengthening -- Self-Care Promotion -- Lee Fall Risk History of Falling -- Secondary Diagnosis -- Ambulatory Aids -- Intravenous Therapy/Heparin/Saline Lock -- Gait/Transferring -- Mental Status -- Score -- OTHER Lee Fall Risk -- Goal: Infection Control Outcome: Ongoing (Interventions Implemented as Appropriate) 02/27/15195203/01/15729 Safety Interventions Isolation Precautions -- standard precautions [...] Operative Note Patient Name: Martinez Richardson : [id number] MR#: [id number] Case Date: 03/01/2015 Surgeon: Surgeon(s) and Role: [...] 3/7 wga who was HD#41 admitted to [facility] presumed chronic abruption. monitoring was reassuring, however, [...] further details. Information for the patient's : Doug Baby Girl [[id number]] DELIVERY SUMMARY FOR Baby Brenna Richardson (please [...] Combined est. blood loss (mL): 1000 Delivery () Delivery Date: 03/01/15 Delivery Time: 1510 Sex: Female Presentation: Vertex Attempted ?: No Delivery Type: Delivery Type (Specific): Lower Segment Transverse Major Indications - : abruption Shoulder Dystocia Shoulder dystocia present?: No Delivery Information Delivery Location: [place] Delivering Clinician: MACARIO MUSA Staff Present: Yes Other Personnel: Provider Role CAMILA GOMEZ Delivery Nurse GRISELDA HAMPTON Masonry Teacher VINICIUS MACK Delivery Assist MAYRA SINGH Registered [...] None, Suctioning Suctioning Method: Bulb syringe Maternal Hitchcock Feeding and Skin to Skin Maternal Choice for Hitchcock(s) Feeding on Admission: Skin to skin initiation date/time: 03/01/15 152 Skin to skin with: Mother Hitchcock Medications Hitchcock Medications Given: vitamin K, erythromycin Naxalone Given?: No Hitchcock Measurements Weight: 6 lb 8.6 oz (2965 g) Height: 45 cm Head Circumference: 34.5 cm Observed Anomalies: none Placenta Date and Time: 03/01/2015 151 Removal: Manual Removal Appearance: Intact Labor Length No data filed RUPTURE OF MEMBRANES FETUS B-E * Op Note - Macario Musa - 03/01/2015 4:28 PM EDT [facility] Operative Note Patient Name: Martinez Richardson : [...] this patient.) Findings at surgery: Liveborn female infant in cephalic presentation. Clear fluid. Peds was [...] pressure was applied to facilitate delivery of infant. The head and shoulders delivered easily. Live born female was delivered. The cord was doubly clamped and cut.The was handed off to the awaiting pediatricians, [...] Outcome: Ongoing (Interventions Implemented as Appropriate) 02/26/15192602/28/15 0802/28/151999 Safety Interventions Safety Precautions/Fall Reduction fall reduction [...] none * Plan of Care - Michell Mayanrd RN - 02/28/2015 4:01 PM EDT Problem: [...] (Interventions Implemented as Appropriate) 02/25/15 1135 02/27/15 1953 Coping/Psychosocial Response Interventions Plan of Care Reviewed [...] Handling Outcome: Ongoing (Interventions Implemented as Appropriate) 02/26/15192602/27/151952 Safety Interventions Safety Precautions/Fall Reduction fall reduction [...] Handling Outcome: Ongoing (Interventions Implemented as Appropriate) 02/26/151926 Safety Interventions Safety Precautions/Fall Reduction fall reduction [...] Control Outcome: Ongoing (Interventions Implemented as Appropriate) 02/26/151926 Safety Interventions Isolation Precautions standard precautions maintained [...] Outcome: Ongoing (Interventions Implemented as Appropriate) 02/24/1579902/25/15 0444 Safety Interventions Isolation Precautions -- standard precautions [...] CPG) Outcome: Ongoing (Interventions Implemented as Appropriate) 02/25/15443 High-Risk/Critically Ill OB Problems Assessed (High Risk/Critically [...] Bleeding) none * Plan of Care - RickyRadu cosby - 02/23/2015 12:15 PM EDT Problem: General [...] size whitney blood on pad this am, aware. Cont to monitor PLAN MOVING FORWARD: [...] (Interventions Implemented as Appropriate) 02/22/15 2100 02/23/15 0900 Safety Interventions Isolation Precautions -- standard precautions [...] Handling Outcome: Ongoing (Interventions Implemented as Appropriate) 02/22/15 2100 02/23/15 0340 Safety Interventions Safety Precautions/Fall Reduction -- [...] quarter size amount of blood on pad, Pacis aware. NST performed and reactive. 1730: [...] Activity/Level of Assistance -- -- up ad zesu;independently Positioning -- -- independent Muscle Strengthening -- [...] Outcome: Ongoing (Interventions Implemented as Appropriate) 02/21/15 2020 Safety Interventions Isolation Precautions standard precautions maintained [...] -- OUTCOME EVALUATION NOTE: OUTCOME SUMMARY: VSS, G9ywpgl this shift. BG WNL, fasting and 1hr [...] Outcome: Ongoing (Interventions Implemented as Appropriate) 02/18/15 03502/19/151928 Coping/Psychosocial Response Interventions Plan of Care Reviewed [...] Ongoing (Interventions Implemented as Appropriate) 02/18/15 0350 02/18/152053 Coping/Psychosocial Response Interventions Plan of Care Reviewed [...] (Interventions Implemented as Appropriate) 02/16/15 0454 02/18/15 035 Individualization Individualize the Plan of Care: -- [...] Handling Outcome: Ongoing (Interventions Implemented as Appropriate) 02/14/158 02/17/15 0731 Safety Interventions Safety Precautions/Fall Reduction [...] Ongoing (Interventions Implemented as Appropriate) 02/14/15 153 Discharge Needs Assessment Concerns to be Addressed [...] Implemented as Appropriate) 02/14/15 1538 02/15/15 0900 Coping/Psychosocial Response Interventions Plan of Care [...] independence encouraged while providing assistance -- -- Lee Fall Risk History of Falling -- -- 0 Secondary Diagnosis -- -- 0 Ambulatory Aids -- -- 0 Intravenous Therapy/Heparin/Saline Lock -- -- 20 Gait/Transferring -- -- 0 Mental Status -- -- 0 Score -- -- 20 OTHER Lee Fall Risk Low -- -- Goal: Infection Control Outcome: Ongoing (Interventions Implemented as Appropriate) 02/14/1581802/14/15 191 Safety Interventions Isolation Precautions -- standard precautions [...] Handling Outcome: Ongoing (Interventions Implemented as Appropriate) 02/14/1581802/14/158 Safety Interventions Safety Precautions/Fall Reduction -- lighting [...] CPG) Outcome: Ongoing (Interventions Implemented as Appropriate) 03/24/15 1538 High-Risk/Critically Ill OB Problems Assessed (High [...] Handling Outcome: Ongoing (Interventions Implemented as Appropriate) 01/29/15171302/13/1582202/13/152114 Safety Interventions Safety Precautions/Fall Reduction lighting adjusted [...] as Appropriate) 02/05/15 0558 02/09/15 1756 02/12/15 1957 Coping/Psychosocial Response Interventions Plan of Care Reviewed [...] Ongoing (Interventions Implemented as Appropriate) 01/29/15 1714 02/12/151956 Safety Interventions Safety Precautions/Fall Reduction lighting adjusted [...] as Appropriate) 02/05/15 0558 02/09/15 1756 02/10/15 195 Coping/Psychosocial Response Interventions Plan of Care [...] (Interventions Implemented as Appropriate) 02/09/15 2100 02/10/15 1951 Safety Interventions Isolation Precautions standard precautions maintained [...] of Care - Ilana Martinez RN - 02/09/2015 3:44 AM EDT Problem: [...] (Interventions Implemented as Appropriate) 01/29/15 1714 02/08/15 0834 02/08/15 2200 Safety Interventions Safety Precautions/Fall Reduction lighting adjusted [...] Ongoing (Interventions Implemented as Appropriate) 02/08/15 0834 02/08/15 220 Safety Interventions Isolation Precautions -- standard precautions [...] Activity/Level of Assistance -- -- up ad zues;independently Positioning -- -- independent Muscle Strengthening -- [...] 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 Family to visit when weather permits. Daily [...] Implemented as Appropriate) 01/29/15 1714 02/07/15 0744 Safety Interventions Safety Precautions/Fall Reduction lighting adjusted [...] (Interventions Implemented as Appropriate) 02/05/15 0558 02/05/15 0750 Coping/Psychosocial Response Interventions Plan of Care Reviewed [...] Lee Fall Risk -- -- -- 02/04/15 2119 02/05/15 0558 Safety Interventions Safety Precautions/Fall Reduction -- [...] Self-Care Promotion -- -- hygiene assistance provided Jesus Fall Risk History of Falling -- [...] Ongoing (Interventions Implemented as Appropriate) 01/24/15 0320 01/31/154 Discharge Needs Assessment Concerns to be Addressed [...] Outcome (s) achieved Date Met: 02/03/15 01/23/15 17501/31/151333 Individualization Individualize the Plan of [...] OTHER Lee Fall Risk -- -- Low 02/02/15 180 Safety Interventions Safety Precautions/Fall Reduction -- Musculoskeletal Interventions Activity/Level of Assistance -- Positioning -- Muscle Strengthening -- Self-Care Promotion -- Lee Fall Risk History of Falling 0 Secondary Diagnosis 0 Ambulatory Aids 0 Intravenous Therapy/Heparin/Saline Lock 20 Gait/Transferring 0 Mental Status 0 Score 20 OTHER Lee Fall Risk -- Goal: Infection Control Outcome: Ongoing (Interventions Implemented as Appropriate) 02/02/15 0802/02/15 180 Safety Interventions Isolation Precautions standard precautions maintained [...] OTHER Lee Fall Risk -- -- -- 01/31/15213002/01/1530 Safety Interventions Safety Precautions/Fall Reduction -- -- [...] Ongoing (Interventions Implemented as Appropriate) 01/31/15 1334 01/31/15213002/01/1530 Safety Interventions Isolation Precautions -- -- standard precautions maintained Infection Prevention -- promote handwashing -- Coping/Psychosocial Response Interventions Counseling personal strengths integrated;problem solving facilitated;reassurance provided;relaxation techniques promoted;understanding of situation facilitated;verbalization of feelings encouraged;emotional support provided -- -- Goal: Discharge Needs Assessment Outcome: Ongoing (Interventions Implemented as Appropriate) 01/24/1531901/31/15 1334 Discharge Needs Assessment Concerns to be [...] Ongoing (Interventions Implemented as Appropriate) 01/23/15 17501/31/15 133 Individualization Individualize the Plan of Care: -- [...] encouraged;uterine activity monitored Intervention: Skin/Mucous Membrane Protection 01/29/15 08 Skin Interventions Skin/Mucous Membrane Protection absorbent garment/pad/diaper [...] Outcome: Ongoing (Interventions Implemented as Appropriate) 01/28/15 1513 High-Risk/Critically Ill OB Problems Assessed (High Risk/Critically [...] Outcome: Ongoing (Interventions Implemented as Appropriate) 01/24/1531901/28/15 08 Coping/Psychosocial Response Interventions Plan of Care [...] Lee Fall Risk -- -- Low 01/28/15 0800 Safety Interventions Safety Precautions/Fall Reduction -- Musculoskeletal Interventions Activity/Level of Assistance bedrest with bathroom privileges Positioning independent Muscle Strengthening activity/mobility promoted Self-Care Promotion -- Lee Fall Risk History of Falling 0 Secondary Diagnosis 15 Ambulatory Aids 0 Intravenous Therapy/Heparin/Saline Lock 20 Gait/Transferring 0 Mental Status 0 Score 35 OTHER Lee Fall Risk -- Goal: Infection Control Outcome: Ongoing (Interventions Implemented as Appropriate) 01/28/15 0800 Safety Interventions Isolation Precautions standard precautions [...] Outcome: Ongoing (Interventions Implemented as Appropriate) 01/28/15 1513 High-Risk/Critically Ill OB Problems Assessed (High Risk/Critically [...] as Appropriate) 01/24/15 0320 01/26/15 0845 01/26/15 2058 Safety Interventions Safety Precautions/Fall Reduction low bed;nonskid [...] Ongoing (Interventions Implemented as Appropriate) 01/24/1531901/26/15 2338 Coping/Psychosocial Response Interventions Plan of Care [...] Review Outcome: Ongoing (Interventions Implemented as Appropriate) 01/24/1531901/26/158 Coping/Psychosocial Response Interventions Plan of Care Reviewed [...] (Interventions Implemented as Appropriate) 01/24/1531901/26/15 0845 01/26/15 2338 Safety Interventions Safety Precautions/Fall Reduction low bed;nonskid [...] when she urinates. MD Rivera informed Per MD pt to be put on the monitor. [...] Ongoing (Interventions Implemented as Appropriate) 01/24/1531901/24/15 0817 01/25/15829 Safety Interventions Safety Precautions/Fall Reduction low bed;nonskid [...] CPG) Outcome: Ongoing (Interventions Implemented as Appropriate) 01/26/15332 High-Risk/Critically Ill OB Problems Assessed (High Risk/Critically [...] Outcome: Ongoing (Interventions Implemented as Appropriate) 01/24/15 03201/24/15 0817 01/25/15 0830 Safety Interventions Safety Precautions/Fall [...] CPG) Outcome: Ongoing (Interventions Implemented as Appropriate) 01/24/15319 High-Risk/Critically Ill OB Problems Assessed (High [...] Mutuality Outcome: Ongoing (Interventions Implemented as Appropriate) 01/20/15199901/21/15180601/22/15628 Individualization Individualize the Plan of Care: -- [...] Handling Outcome: Ongoing (Interventions Implemented as Appropriate) 01/22/15203201/23/15610 Safety Interventions Safety Precautions/Fall Reduction -- low [...] Control Outcome: Ongoing (Interventions Implemented as Appropriate) 01/23/15610 Safety Interventions Isolation Precautions standard precautions maintained Infection Prevention blood glucose management;rest/sleep promoted Coping/Psychosocial Response Interventions Counseling reassurance provided Goal: Discharge Needs Assessment Outcome: Ongoing (Interventions Implemented as Appropriate) 01/23/15610 Discharge Needs Assessment Concerns to be Addressed [...] Outcome: Ongoing (Interventions Implemented as Appropriate) 01/22/1562801/22/15 08 Coping/Psychosocial Response Interventions Plan of Care [...] Outcome: Ongoing (Interventions Implemented as Appropriate) 01/20/15199901/21/15 1807 01/22/15 06 Individualization Individualize the Plan of Care: [...] Outcome: Ongoing (Interventions Implemented as Appropriate) 01/22/15 0800 Safety Interventions Isolation Precautions standard precautions maintained Infection Prevention blood glucose management;promote handwashing;rest/sleep promoted;nutrition promoted;hydration promoted;environmental surveillance Coping/Psychosocial Response Interventions Counseling understanding of situation facilitated Goal: Discharge Needs Assessment Outcome: Ongoing (Interventions Implemented as Appropriate) 01/22/15 0629 Discharge Needs Assessment Concerns to be Addressed [...] CPG) Outcome: Ongoing (Interventions Implemented as Appropriate) 01/22/15 1616 High-Risk/Critically Ill OB Problems Assessed (High Risk/Critically Ill OB) all Problems Present (High Risk/Critically Ill OB) other (see comments) (scant vaginal bleeding) * Plan of Care - Latosha Bradley RN - 01/22/2015 6:34 AM EST Problem: General Plan of Care Goal: Plan of Care Review 01/22/15 0629 Coping/Psychosocial Response Interventions Plan of Care Reviewed with patient Plan of Care Review Plan of Care Outcome Status ongoing (interventions implemented as appropriate) Progress no change Goal: Individualization and Mutuality Outcome: Ongoing (Interventions Implemented as Appropriate) 01/21/15 1807 01/22/15628 Individualization Individualize the Plan of Care: antepartum pt with vaginal bleeding -- Patient Specific Preferences cluster care -- Patient Specific Goals term delivery -- Patient Specific Interventions cluster care -- Mutuality/Individual Preferences What anxieties, fears or concerns do you have about your health or care? -- Loss of Goal: Fall Prevention-Safe Patient Handling Outcome: Ongoing (Interventions Implemented as Appropriate) 01/21/15 1938 01/22/15 06 Safety Interventions Safety Precautions/Fall Reduction -- [...] Control Outcome: Ongoing (Interventions Implemented as Appropriate) 01/22/15628 Safety Interventions Isolation Precautions standard precautions maintained [...] her Víctor and their 3 children in [place], [place]. They have an adopted 10 year old boy, a 6 year old girl freddy 4 year old boy. 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 Víctor was unable to join us as [...] to discuss the delivery and management of born at 30 6/7 week gestation. We [...] 6:15 AM EDT DIFFERENTIAL, AUTOMATED Routine 03/02/20 6:15 AM EDT CBC (WITH DIFF) Routine [...] 02/19/2015 5:45 PM EDT TYPE AND SCREEN ([facility]) Routine 02/19/2015 5:45 PM EDT POCT GLUCOSE [...] 02/16/2015 3:47 PM EDT TYPE AND SCREEN ([facility]) Timed 02/16/2015 3:47 PM EDT POCT GLUCOSE [...] 02/13/2015 3:22 PM EDT TYPE AND SCREEN ([facility]) Timed 02/13/2015 3:22 PM EDT POCT GLUCOSE [...] 02/01/2015 10:10 PM EDT TYPE AND SCREEN ([facility]) Timed 02/01/2015 10:10 PM EDT POCT GLUCOSE [...] 01/29/2015 7:25 PM EDT TYPE AND SCREEN ([facility]) Routine 01/29/2015 7:25 PM EDT POCT GLUCOSE [...] 10:45 AM EST DIFFERENTIAL, AUTOMATED STAT 01/28/20 15 10:45 AM EST CREATININE STAT 01/27/2015 10:45 [...] 5:45 PM EST DIFFERENTIAL, AUTOMATED Routine 01/20/20 15 5:45 PM EST CBC (WITH DIFF) Routine 01/20/2015 5:45 PM EST documented in this encounter Results * (ABNORMAL) Differential, Automated (03/02/2015 6:15 AM EDT) Neutrophil % 72.7 % CERNER MILLENNIUM Neutrophil Absolute 8.89(H) 1.50 - 6.30 x10(3)/mc [...] Griselda Hampton MD HEMATOLOGY ORDERABLE S CERNER JETENNIUM * (ABNORMAL) Hemogram (03/02/2015 6:15 AM EDT) [...] Hemoglobin Concentration 33.7 32.0 - 36.5 gm/dL [facility]AUDHARYBAN[facility] CENTERIUM Platelet 153 145 - 370 x10(3)/mc L SARA RABAGOIUM RDW Standard Deviation 49.4(H) 35.0 - 46.0 fL SARA RABAGOIUM RDW coefficient of variation 14.2 10.9 - 14.4 % SARA [facility]AUDHARYBAN[facility]ENTERI[facility] Mean Platelet Volume 9.9 9.0 - 12.0 fL SARA RABAGOIUM Blood specimen (specimen) 03/02/2015 6:15 AM EDT 03/02/2015 6:36 AM EDT Narrative Resulting Agency Comment Spec In Lab Griselda Hampton MD HEMATOLOGY ORDERABLE S Performing Organization Address [facility] de Phone Number [facility] CLINICHÉCTOR [facility] * Specimen to Pathology (surgical or derm) (03/01/2015 4:48 PM EDT) AP Specimen 03/01/2015 4:48 PM EDT 03/01/2015 4:48 PM EDT Narrative SARA SHETH - 03/01/2015 4:48 PM EDT Specimen requisition ordered. ??Separate Pathology report to follow Griselda Hampton MD PATHOLOGY/CYTOLOGY O JAMILAH Performing Organization Address [facility] de Phone Number [facility] * Specimen to Pathology (surgical or derm) (03/01/2015 4:48 PM EDT) AP Specimen 03/01/2015 4:48 PM EDT 03/01/2015 4:48 PM EDT Narrative SARA RABAGOIUM - 03/01/2015 4:48 PM EDT Specimen requisition ordered. ??Separate Pathology report to follow Griselda Hampton MD PATHOLOGY/CYTOLOGY O JAMILAH Performing Organization Address [facility] Co de Phone Number [facility] * Specimen to Pathology (NON-OR) (03/01/2015 4:48 PM EDT) AP Specimen 03/01/2015 4:48 PM EDT 03/01/2015 4:48 PM EDT Narrative CERNER MILLENNIUM - 03/01/2015 4:48 PM EDT Specimen requisition ordered. ??Separate Pathology report to follow Griselda Hampton MD PATHOLOGY/CYTOLOGY O RDERABLES SARA RABAGOIUM * Prepare RBC (03/01/2015 2:10 PM EDT) Dispensed? Yes CERNER JETENNIUM Blood specimen (specimen) 03/01/2015 2:10 PM EDT 03/01/2015 2:10 PM EDT Sanju Marcos MD BLOOD BANK PRODUCT O RDRAHCEAL Performing Organization Address City/[facility]/ZIP Co de Phone Number SARA CHAUDHARYENNIUM * (ABNORMAL) Differential, Automated (03/01/2015 1:40 PM [...] MD HEMATOLOGY ORDERABLE S Performing Organization Address [facility]/ZIP Co de Phone Number CERHÉCTOR CHAUDHARYENNIUM * (ABNORMAL) Hemogram (03/01/2015 1:40 PM EDT) [...] Lab Sanju Marcos MD HEMATOLOGY ORDERABLE S CERHÉCTOR CHAUDHARYENNIUM * (ABNORMAL) APTT (03/01/2015 1:40 PM EDT) [...] MD HEMATOLOGY ORDERABLE S Performing Organization Address [facility] de Phone Number SARA CHAUDHARYcoresystems * (ABNORMAL) Prothrombin Time (03/01/2015 1:40 PM EDT) Prothrombin Time 12.4(L) 12.5 - 15.5 sec [facility] Comment: Transfusion Committee Guidelines: INR less than 2.0, PTT less than OR equal to 43.5 seconds, or Fibrinogen greater than or equal to 100 mg/dl indicate adequate procoagulant activity for hemostasis in patients without underlying bleeding disorders. International Normalization Ratio 0.9 0.9 - 1.1 [facility] Blood specimen (specimen) 03/01/2015 1:40 PM EDT 03/01/2015 1:48 PM EDT Narrative Resulting Agency Comment Spec In Lab Sanju Marcos MD HEMATOLOGY ORDERABLE S Performing Organization Address [facility] Phone Number SARA CHAUDHARYNursenavUNC [facility] * Surgical Pathology Report (03/01/2015 9:56 AM EDT) Final Diagnosis ? [facility] ? Provider: ?? VINICIUS MACK ?? Pt. Name: ?? MARTINEZ RICHARDSON ? Acc #: ?[id number] ?Pt. ? Col Date: ?? 03/01/2015 ?/Sex: [...] irene placenta with ovoid shape. ? Membranes: Fair Plain-yellow and hazy with marginal insertion. ? Cord: [...] 1.0 x 1.0 x 0.5 cm. ? [facility] ? Provider: ?? FREDERICK, VINICIUS Knott ?? Pt. Name: ?? MARTINEZ RICHARDSON ? Acc #: ?[id number] ?Pt. ? Col Date: ?? 03/01/2015 ?/Sex: [...] Diagnosis: ? Same 03/07/2015 1:[address] [facility] TISSUE SPECIMEN FROM PLACENTA / Unknown 03/01/2015 9:56 AM EDT 03/01/2015 9:56 AM EDT False Vocal Cords, Bilateral 03/01/2015 9:56 AM EDT 03/01/2015 9:56 AM EDT False Vocal Cords, Bilateral 03/01/2015 9:56 AM EDT 03/01/2015 9:56 AM EDT Vinicius Mack MD PATHOLOGY/CYTOLOGY O RDERAKELIN Performing Organization Address City/[facility]/ZIP Co de Phone Number [facility] [place] [address] * POCT Glucose (03/01/2015 9:10 AM EDT) Glucose, POC 132 60 - 199 mg/dL [facility] Comment: Supplemental ranges: <140 mg/dL before meals <180 mg/dL all other times of the day Blood specimen (specimen) 03/01/2015 9:10 AM EDT 03/01/2015 9:10 AM EDT Sanju Marcos MD POINT OF CARE TEST O RDRACHEAL Performing Organization Address [facility] Co de Phone Number [facility] * POCT Glucose (03/01/2015 6:57 AM EDT) Glucose, POC 94 60 - 199 mg/dL [facility] Comment: Supplemental ranges: <140 mg/dL before meals <180 mg/dL all other times of the day Blood specimen (specimen) 03/01/2015 6:57 AM EDT 03/01/2015 6:57 AM EDT Sanju Marcos MD POINT OF CARE TEST O RDERAKELIN Performing Organization Address City/[facility]/ZIP Co de Phone Number [employer] [facility] * Antibody screen (02/28/2015 8:27 PM EDT) Ab Screen Interp Negative [facility] Expires at 2359 on: [id number] [facility] Blood specimen (specimen) 02/28/2015 8:27 PM EDT 02/28/2015 8:27 PM EDT Narrative Resulting Agency Comment Spec In Lab Sanju Marcos MD BLOOD BANK LAB ORDER CEDRICK Performing Organization Address City/[facility]/ZIP Co de Phone Number [employer] [facility] * ABO/Rh Typing (02/28/2015 8:27 PM EDT) ABORH [facility] Blood specimen (specimen) 02/28/2015 8:27 PM EDT 02/28/2015 8:27 PM EDT Narrative Resulting Agency Comment Spec In Lab Sanju Marcos MD BLOOD BANK LAB ORDER CEDRICK Performing Organization Address [facility] de Phone Number [facility] * POCT Glucose (02/28/2015 8:00 PM EDT) Glucose, POC 135 60 - 199 mg/dL [facility] Comment: Supplemental ranges: <140 mg/dL before meals <180 mg/dL all other times of the day Blood specimen (specimen) 02/28/2015 8:00 PM EDT 02/28/2015 8:00 PM EDT Sanju Marcos MD POINT OF CARE TEST O JAMILAH Performing Organization Address [facility] de Phone Number [facility] * POCT Glucose (02/28/2015 2:34 PM EDT) Glucose, POC 111 60 - 199 mg/dL [facility] Comment: Supplemental ranges: <140 mg/dL before meals <180 mg/dL all other times of the day Blood specimen (specimen) 02/28/2015 2:34 PM EDT 02/28/2015 2:34 PM EDT Sanju Marcos MD POINT OF CARE TEST O RDRACHEAL Performing Organization Address [facility] Co de Phone Number [facility] * POCT Glucose (02/28/2015 9:07 AM EDT) Glucose, POC 107 60 - 199 mg/dL [facility] Comment: Supplemental ranges: <140 mg/dL before meals <180 mg/dL all other times of the day Blood specimen (specimen) 02/28/2015 9:07 AM EDT 02/28/2015 9:07 AM EDT Sanju Marcos MD POINT OF CARE TEST O RDRACHEAL Performing Organization Address [facility] de Phone Number [facility] * POCT Glucose (02/28/2015 6:25 AM EDT) Glucose, POC 84 60 - 199 mg/dL [facility] Comment: Supplemental ranges: <140 mg/dL before meals <180 mg/dL all other times of the day Blood specimen (specimen) 02/28/2015 6:25 AM EDT 02/28/2015 6:25 AM EDT Sanju Marcos MD POINT OF CARE TEST O JAMILAH Performing Organization Address [facility] Phone Number [facility] * POCT Glucose (02/27/2015 7:46 PM EDT) Glucose, POC 110 60 - 199 mg/dL [facility] Comment: Supplemental ranges: <140 mg/dL before meals <180 mg/dL all other times of the day Blood specimen (specimen) 02/27/2015 7:46 PM EDT 02/27/2015 7:46 PM EDT Sanju Marcos MD POINT OF CARE TEST O JAMILAH Performing Organization Address [facility] de Phone Number [facility] * POCT Glucose (02/27/2015 9:06 AM EDT) Glucose, POC 103 60 - 199 mg/dL [facility] Comment: Supplemental ranges: <140 mg/dL before meals <180 mg/dL all other times of the day Blood specimen (specimen) 02/27/2015 9:06 AM EDT 02/27/2015 9:06 AM EDT Sanju Marcos MD POINT OF CARE TEST O RDRACHEAL Performing Organization Address [facility] Co de Phone Number [facility] * POCT Glucose (02/27/2015 6:17 AM EDT) Glucose, POC 83 60 - 199 mg/dL [facility] Comment: Supplemental ranges: <140 mg/dL before meals <180 mg/dL all other times of the day Blood specimen (specimen) 02/27/2015 6:17 AM EDT 02/27/2015 6:17 AM EDT Sanju Marcos MD POINT OF CARE TEST O JAMILAH Performing Organization Address [facility] Co de Phone Number [facility] * POCT Glucose (02/26/2015 7:25 PM EDT) Glucose, POC 111 60 - 199 mg/dL [facility] Comment: Supplemental ranges: <140 mg/dL before meals <180 mg/dL all other times of the day Blood specimen (specimen) 02/26/2015 7:25 PM EDT 02/26/2015 7:25 PM EDT Sanju Marcos MD POINT OF CARE TEST O JAMILAH Performing Organization Address [facility] de Phone Number [facility] * POCT Glucose (02/26/2015 2:05 PM EDT) Glucose, POC 138 60 - 199 mg/dL [facility] Comment: Supplemental ranges: <140 mg/dL before meals <180 mg/dL all other times of the day Blood specimen (specimen) 02/26/2015 2:05 PM EDT 02/26/2015 2:05 PM EDT Sanju Marcos MD POINT OF CARE TEST O JAMILAH Performing Organization Address [facility] de Phone Number [facility] * POCT Glucose (02/26/2015 9:42 AM EDT) Glucose, POC 116 60 - 199 mg/dL [facility] Comment: Supplemental ranges: <140 mg/dL before meals <180 mg/dL all other times of the day Blood specimen (specimen) 02/26/2015 9:42 AM EDT 02/26/2015 9:42 AM EDT Sanju Marcos MD POINT OF CARE TEST O RDERABLES Performing Organization Address [facility] Co de Phone Number [facility] * POCT Glucose (02/26/2015 6:39 AM EDT) Glucose, POC 89 60 - 199 mg/dL [facility] Comment: Supplemental ranges: <140 mg/dL before meals <180 mg/dL all other times of the day Blood specimen (specimen) 02/26/2015 6:39 AM EDT 02/26/2015 6:39 AM EDT Sanju Marcos MD POINT OF CARE TEST O RDERABLES Performing Organization Address [facility] de Phone Number [facility] * Antibody screen (02/25/2015 9:05 PM EDT) Ab Screen Interp Negative [facility] Expires at 2359 on: [id number] [facility] Blood specimen (specimen) 02/25/2015 9:05 PM EDT 02/25/2015 9:26 PM EDT Narrative Resulting Agency Comment Spec In Lab Sanju Marcos MD BLOOD BANK LAB ORDER CEDRICK Performing Organization Address [facility] de Phone Number [facility] * ABO/Rh Typing (02/25/2015 9:05 PM EDT) ABORH Type A Pos [facility] Blood specimen (specimen) 02/25/2015 9:05 PM EDT 02/25/2015 9:26 PM EDT Narrative Resulting Agency Comment Spec In Lab Sanju Marcos MD BLOOD BANK LAB ORDER CEDRICK Performing Organization Address [facility] Co de Phone Number [facility] * POCT Glucose (02/25/2015 7:23 PM EDT) Glucose, POC 158 60 - 199 mg/dL [facility] Comment: Supplemental ranges: <140 mg/dL before meals <180 mg/dL all other times of the day Blood specimen (specimen) 02/25/2015 7:23 PM EDT 02/25/2015 7:23 PM EDT Sanju Marcos MD POINT OF CARE TEST O JAMILAH Performing Organization Address [facility] Co de Phone Number [facility] * POCT Glucose (02/25/2015 2:35 PM EDT) Glucose, POC 164 60 - 199 mg/dL [facility] Comment: Supplemental ranges: <140 mg/dL before meals <180 mg/dL all other times of the day Blood specimen (specimen) 02/25/2015 2:35 PM EDT 02/25/2015 2:35 PM EDT Sanju Marcos MD POINT OF CARE TEST O JAMILAH Performing Organization Address [facility] Co de Phone Number [facility] * POCT Glucose (02/25/2015 9:43 AM EDT) Glucose, POC 115 60 - 199 mg/dL [facility] Comment: Supplemental ranges: <140 mg/dL before meals <180 mg/dL all other times of the day Blood specimen (specimen) 02/25/2015 9:43 AM EDT 02/25/2015 9:43 AM EDT Sanju Marcos MD POINT OF CARE TEST O JAMILAH Performing Organization Address [facility] Co de Phone Number [facility] * POCT Glucose (02/25/2015 7:05 AM EDT) Glucose, POC 91 60 - 199 mg/dL [facility] Comment: Supplemental ranges: <140 mg/dL before meals <180 mg/dL all other times of the day Blood specimen (specimen) 02/25/2015 7:05 AM EDT 02/25/2015 7:05 AM EDT Sanju Marcos MD POINT OF CARE TEST O JAMILAH Performing Organization Address [facility] Co de Phone Number [facility] * POCT Glucose (02/24/2015 7:59 PM EDT) Glucose, POC 123 60 - 199 mg/dL [facility] Comment: Supplemental ranges: <140 mg/dL before meals <180 mg/dL all other times of the day Blood specimen (specimen) 02/24/2015 7:59 PM EDT 02/24/2015 7:59 PM EDT Sanju Marcos MD POINT OF CARE TEST O JAMILAH Performing Organization Address [facility] Co de Phone Number [facility] * US OB follow up evaluation (02/24/2015 2:11 PM EDT) Anatomical Region Laterality Modality Pelvis, Abdomen Ultrasound 02/24/2015 2:11 PM EDT Narrative 02/24/2015 2:21 PM EDT OBSTETRICS REPORT ?(Signed Final 02/24/2015 02:19 ? pm) Patient Info ID #: ? [id number] ?: ??[birth year] (29 yrs)(F) Name: ? MARTINEZ RICHARDSON ?Visit Date: 02/24/2015 02:07 pm Performed By Performed By: ?Rene Bryan RDMS Attending: ? Shayla FOY, Irvin Paz Referred By: ? VINICIUS MACK MD Service(s) Provided ??UOBFOL - Efw - Growth - Irene - [id number] ? [id number] Indications ??29yo at 35+5wga w/ GDMA2 admitted [...] 02/24/2015 02:19 pm) Patient Info ID #: [id number] : [birth year] (29 yrs)(F) Name: MARTINEZ RICHARDSON Visit Date: 02/24/2015 02:07 pm Performed By Performed By: Rene Bryan RDMS Attending: Irvin Mcguire MD Referred By: VINICIUS MACK MD Service(s) Provided UOBFOL - Efw - Growth - Irene - [phone] [id number] Indications 29yo at 35+5wga w/ GDMA2 admitted [...] Glucose, POC 126 60 - 199 mg/dL [facility] Comment: Supplemental ranges: <140 mg/dL before meals <180 mg/dL all other times of the day Blood specimen (specimen) 02/24/2015 1:22 PM EDT 02/24/2015 1:22 PM EDT Sanju Marcos MD POINT OF CARE TEST O JAMILAH Performing Organization Address [facility] de Phone Number [facility] * POCT Glucose (02/24/2015 9:15 AM EDT) Glucose, POC 124 60 - 199 mg/dL [facility] Comment: Supplemental ranges: <140 mg/dL before meals <180 mg/dL all other times of the day Blood specimen (specimen) 02/24/2015 9:15 AM EDT 02/24/2015 9:15 AM EDT Sanju Marcos MD POINT OF CARE TEST O RDRACHEAL Performing Organization Address [facility] Co de Phone Number [facility] * POCT Glucose (02/24/2015 6:37 AM EDT) Glucose, POC 81 60 - 199 mg/dL [facility] Comment: Supplemental ranges: <140 mg/dL before meals <180 mg/dL all other times of the day Blood specimen (specimen) 02/24/2015 6:37 AM EDT 02/24/2015 6:37 AM EDT Sanju Marcos MD POINT OF CARE TEST O RDERABLES Performing Organization Address [facility] de Phone Number [facility] * Group B Streptococcus Screen (02/23/2015 8:56 PM EDT) GBS Screen Neg [facility] Pooled specimen from vaginal introitus and rectal swab (specimen) 02/23/2015 8:56 PM EDT 02/23/2015 9:15 PM EDT Comment:Penicillin Allergy?- >Yes Narrative Resulting Agency Comment Spec In Lab Sanju Marcos MD MICROBIOLOGY - GENER AL ORDERABLES Performing Organization Address [facility] de Phone Number [facility] * Group B Strep Culture Screen (02/23/2015 8:56 PM EDT) Pathologist [facility] Group B Streptococcus Culture ? Patient Name: MARTINEZ RICHARDSON ? Ordered By: SANJU MARCOS ? MR#: [id number] ?LOC: ??BP ? /Sex: ??1985 (29 years), ? Female ? PROCEDURE: Group B Streptococcus Culture ?SOURCE: Vag/Rectal ? COLLECTED: 02/23/2015 20:56 ?FREE TEXT SOURCE: Penicillin Allergy?->Yes ? STARTED: 02/23/2015 21:15 ? FINAL REPORT ? Final Report ? Verified: 14:54 ? No Group B Streptococci isolated ? PRELIMINARY REPORT ? Preliminary Report ? Verified: 14:45 ? Culture in progress ? [facility] Pooled specimen from vaginal introitus and rectal swab (specimen) 02/23/2015 8:56 PM EDT 02/23/2015 9:15 PM EDT Comment:PENICILLIN ALLERGY?- >YES Narrative Resulting Agency Comment Spec In Lab Sanju Marcos MD MICROBIOLOGY - GENER AL ORDERABLES Performing Organization Address [facility] de Phone Number [facility] * POCT Glucose (02/23/2015 7:34 PM EDT) Glucose, POC 140 60 - 199 mg/dL [facility] Comment: Supplemental ranges: <140 mg/dL before meals <180 mg/dL all other times of the day Blood specimen (specimen) 02/23/2015 7:34 PM EDT 02/23/2015 7:34 PM EDT Sanju Marcos MD POINT OF CARE TEST O RDERABLES Performing Organization Address [facility] Co de Phone Number [facility] * POCT Glucose (02/23/2015 2:14 PM EDT) Glucose, POC 108 60 - 199 mg/dL [facility] Comment: Supplemental ranges: <140 mg/dL before meals <180 mg/dL all other times of the day Blood specimen (specimen) 02/23/2015 2:14 PM EDT 02/23/2015 2:14 PM EDT Sanju Marcos MD POINT OF CARE TEST O JAMILAH Performing Organization Address [facility] de Phone Number [facility] * POCT Glucose (02/23/2015 9:31 AM EDT) Glucose, POC 139 60 - 199 mg/dL [facility] Comment: Supplemental ranges: <140 mg/dL before meals <180 mg/dL all other times of the day Blood specimen (specimen) 02/23/2015 9:31 AM EDT 02/23/2015 9:31 AM EDT Sanju Marcos MD POINT OF CARE TEST O JAMILAH Performing Organization Address [facility] de Phone Number [facility] * POCT Glucose (02/23/2015 6:47 AM EDT) Glucose, POC 94 60 - 199 mg/dL [facility] Comment: Supplemental ranges: <140 mg/dL before meals <180 mg/dL all other times of the day Blood specimen (specimen) 02/23/2015 6:47 AM EDT 02/23/2015 6:47 AM EDT Sanju Marcos MD POINT OF CARE TEST O JAMILAH Performing Organization Address [facility] de Phone Number [facility] * POCT urine dipstick (02/23/2015) POC Sp [place] not obtained 1.002 - 1.030 POC pH, [...] 9:14 PM EDT) Ab Screen Interp Negative [facility] Expires at 2359 on: [id number] [facility] Blood specimen (specimen) 02/22/2015 9:14 PM EDT 02/22/2015 9:14 PM EDT Narrative Resulting Agency Comment Spec In Lab Sanju Marcos MD BLOOD BANK LAB ORDER CEDRICK [facility] * ABO/Rh Typing (02/22/2015 9:14 PM EDT) ABORH Type A Pos [facility] Blood specimen (specimen) 02/22/2015 9:14 PM EDT 02/22/2015 9:14 PM EDT Narrative Resulting Agency Comment Spec In Lab Sanju Marcos MD BLOOD BANK LAB ORDER CEDRICK [facility] * POCT Glucose (02/22/2015 6:55 PM EDT) Glucose, POC 134 60 - 199 mg/dL [facility] Comment: Supplemental ranges: <140 mg/dL before meals <180 mg/dL all other times of the day Blood specimen (specimen) 02/22/2015 6:55 PM EDT 02/22/2015 6:55 PM EDT Sanju Marcos MD POINT OF CARE TEST O RDERABLES Performing Organization Address City/[facility]/ZIP Co de Phone Number [facility] * POCT Glucose (02/22/2015 1:34 PM EDT) Glucose, POC 164 60 - 199 mg/dL [facility] Comment: Supplemental ranges: <140 mg/dL before meals <180 mg/dL all other times of the day Blood specimen (specimen) 02/22/2015 1:34 PM EDT 02/22/2015 1:34 PM EDT Sanju Marcos MD POINT OF CARE TEST O JAMILAH Performing Organization Address [facility] de Phone Number [facility] * POCT Glucose (02/22/2015 9:01 AM EDT) Glucose, POC 142 60 - 199 mg/dL [facility] Comment: Supplemental ranges: <140 mg/dL before meals <180 mg/dL all other times of the day Blood specimen (specimen) 02/22/2015 9:01 AM EDT 02/22/2015 9:01 AM EDT Sanju Marcos MD POINT OF CARE TEST O JAMILAH Performing Organization Address [facility] Phone Number [facility] * POCT Glucose (02/22/2015 6:24 AM EDT) Glucose, POC 92 60 - 199 mg/dL [facility] Comment: Supplemental ranges: <140 mg/dL before meals <180 mg/dL all other times of the day Blood specimen (specimen) 02/22/2015 6:24 AM EDT 02/22/2015 6:24 AM EDT Sanju Marcos MD POINT OF CARE TEST O JAMILAH Performing Organization Address [facility] de Phone Number [facility] * POCT Glucose (02/21/2015 7:14 PM EDT) Glucose, POC 147 60 - 199 mg/dL [facility] Comment: Supplemental ranges: <140 mg/dL before meals <180 mg/dL all other times of the day Blood specimen (specimen) 02/21/2015 7:14 PM EDT 02/21/2015 7:14 PM EDT Sanju Marcos MD POINT OF CARE TEST O RDRACHEAL Performing Organization Address [facility] Co de Phone Number [facility] * POCT Glucose (02/21/2015 1:10 PM EDT) Glucose, POC 144 60 - 199 mg/dL [facility] Comment: Supplemental ranges: <140 mg/dL before meals <180 mg/dL all other times of the day Blood specimen (specimen) 02/21/2015 1:10 PM EDT 02/21/2015 1:10 PM EDT Sanju Marcos MD POINT OF CARE TEST O JAMILAH Performing Organization Address [facility] Phone Number [facility] * POCT Glucose (02/21/2015 9:04 AM EDT) Glucose, POC 124 60 - 199 mg/dL [facility] Comment: Supplemental ranges: <140 mg/dL before meals <180 mg/dL all other times of the day Blood specimen (specimen) 02/21/2015 9:04 AM EDT 02/21/2015 9:04 AM EDT Sanju Marcos MD POINT OF CARE TEST O JAMILAH Performing Organization Address [facility] de Phone Number [facility] * POCT Glucose (02/21/2015 6:42 AM EDT) Glucose, POC 76 60 - 199 mg/dL [facility] Comment: Supplemental ranges: <140 mg/dL before meals <180 mg/dL all other times of the day Blood specimen (specimen) 02/21/2015 6:42 AM EDT 02/21/2015 6:42 AM EDT Sanju Marcos MD POINT OF CARE TEST O RDRACHEAL Performing Organization Address [facility] Co de Phone Number [facility] * POCT Glucose (02/20/2015 6:52 PM EDT) Glucose, POC 125 60 - 199 mg/dL [facility] Comment: Supplemental ranges: <140 mg/dL before meals <180 mg/dL all other times of the day Blood specimen (specimen) 02/20/2015 6:52 PM EDT 02/20/2015 6:52 PM EDT Sanju Marcos MD POINT OF CARE TEST O JAMILAH Performing Organization Address [facility] de Phone Number [facility] * POCT Glucose (02/20/2015 2:22 PM EDT) Glucose, POC 135 60 - 199 mg/dL [facility] Comment: Supplemental ranges: <140 mg/dL before meals <180 mg/dL all other times of the day Blood specimen (specimen) 02/20/2015 2:22 PM EDT 02/20/2015 2:22 PM EDT Sanju Marcos MD POINT OF CARE TEST O JAMILAH Performing Organization Address [facility] de Phone Number [facility] * POCT Glucose (02/20/2015 9:16 AM EDT) Glucose, POC 110 60 - 199 mg/dL [facility] Comment: Supplemental ranges: <140 mg/dL before meals <180 mg/dL all other times of the day Blood specimen (specimen) 02/20/2015 9:16 AM EDT 02/20/2015 9:16 AM EDT Sanju Marcos MD POINT OF CARE TEST O JAMILAH Performing Organization Address [facility] de Phone Number [facility] * POCT Glucose (02/20/2015 6:37 AM EDT) Glucose, POC 85 60 - 199 mg/dL [facility] Comment: Supplemental ranges: <140 mg/dL before meals <180 mg/dL all other times of the day Blood specimen (specimen) 02/20/2015 6:37 AM EDT 02/20/2015 6:37 AM EDT Sanju Marcos MD POINT OF CARE TEST O RDERAKELIN Performing Organization Address [facility] Co de Phone Number [facility] * POCT Glucose (02/19/2015 7:27 PM EDT) Glucose, POC 124 60 - 199 mg/dL [facility] Comment: Supplemental ranges: <140 mg/dL before meals <180 mg/dL all other times of the day Blood specimen (specimen) 02/19/2015 7:27 PM EDT 02/19/2015 7:27 PM EDT Sanju Marcos MD POINT OF CARE TEST O JAMILAH Performing Organization Address [facility] [facility] Co de Phone Number [facility] * Antibody screen (02/19/2015 5:45 PM EDT) Ab Screen Interp Negative [facility] Expires at 2359 on: [id number] [facility] Blood specimen (specimen) 02/19/2015 5:45 PM EDT 02/19/2015 6:07 PM EDT Narrative Resulting Agency Comment Spec In Lab Griselda Hampton MD BLOOD BANK LAB ORDER CEDRICK Performing Organization Address [facility] de Phone Number [facility] * ABO/Rh Typing (02/19/2015 5:45 PM EDT) ABORH Type A Pos [facility] Blood specimen (specimen) 02/19/2015 5:45 PM EDT 02/19/2015 6:07 PM EDT Narrative Resulting Agency Comment Spec In Lab Griselda Hampton MD BLOOD BANK LAB ORDER CEDRICK Performing Organization Address [facility] Co de Phone Number [facility] * POCT Glucose (02/19/2015 2:44 PM EDT) Glucose, POC 151 60 - 199 mg/dL [facility] Comment: Supplemental ranges: <140 mg/dL before meals <180 mg/dL all other times of the day Blood specimen (specimen) 02/19/2015 2:44 PM EDT 02/19/2015 2:44 PM EDT Sanju Marcos MD POINT OF CARE TEST O JAMILAH Performing Organization Address [facility] Phone Number [facility] * POCT Glucose (02/19/2015 10:32 AM EDT) Glucose, POC 141 60 - 199 mg/dL [facility] Comment: Supplemental ranges: <140 mg/dL before meals <180 mg/dL all other times of the day Blood specimen (specimen) 02/19/2015 10:32 AM EDT 02/19/2015 10:32 AM EDT Sanju Marcos MD POINT OF CARE TEST O JAMILAH Performing Organization Address [facility] de Phone Number [facility] * POCT Glucose (02/19/2015 7:04 AM EDT) Glucose, POC 99 60 - 199 mg/dL [facility] Comment: Supplemental ranges: <140 mg/dL before meals <180 mg/dL all other times of the day Blood specimen (specimen) 02/19/2015 7:04 AM EDT 02/19/2015 7:04 AM EDT Sanju Marcos MD POINT OF CARE TEST O JAMILAH Performing Organization Address [facility] de Phone Number [facility] * POCT Glucose (02/18/2015 7:13 PM EDT) Glucose, POC 102 60 - 199 mg/dL [facility] Comment: Supplemental ranges: <140 mg/dL before meals <180 mg/dL all other times of the day Blood specimen (specimen) 02/18/2015 7:13 PM EDT 02/18/2015 7:13 PM EDT Sanju Marcos MD POINT OF CARE TEST O RDERABLES Performing Organization Address [facility] de Phone Number [facility] * POCT Glucose (02/18/2015 1:45 PM EDT) Glucose, POC 115 60 - 199 mg/dL [facility] Comment: Supplemental ranges: <140 mg/dL before meals <180 mg/dL all other times of the day Blood specimen (specimen) 02/18/2015 1:45 PM EDT 02/18/2015 1:45 PM EDT Sanju Marcos MD POINT OF CARE TEST O RDERAKELIN Performing Organization Address [facility] Phone Number [facility] * POCT Glucose (02/18/2015 10:05 AM EDT) Glucose, POC 111 60 - 199 mg/dL [facility] Comment: Supplemental ranges: <140 mg/dL before meals <180 mg/dL all other times of the day Blood specimen (specimen) 02/18/2015 10:05 AM EDT 02/18/2015 10:05 AM EDT Sanju Marcos MD POINT OF CARE TEST O RDRACHEAL Performing Organization Address [facility] de Phone Number [facility] * POCT Glucose (02/18/2015 7:45 AM EDT) Glucose, POC 95 60 - 199 mg/dL [facility] Comment: Supplemental ranges: <140 mg/dL before meals <180 mg/dL all other times of the day Blood specimen (specimen) 02/18/2015 7:45 AM EDT 02/18/2015 7:45 AM EDT Sanju Marcos MD POINT OF CARE TEST O RDERABLES Performing Organization Address [facility] Co de Phone Number [facility] * POCT Glucose (02/17/2015 7:02 PM EDT) Glucose, POC 150 60 - 199 mg/dL [facility] Comment: Supplemental ranges: <140 mg/dL before meals <180 mg/dL all other times of the day Blood specimen (specimen) 02/17/2015 7:02 PM EDT 02/17/2015 7:02 PM EDT Sanju Marcos MD POINT OF CARE TEST O JAMILAH Performing Organization Address [facility] de Phone Number [facility] * POCT Glucose (02/17/2015 2:03 PM EDT) Glucose, POC 133 60 - 199 mg/dL [facility] Comment: Supplemental ranges: <140 mg/dL before meals <180 mg/dL all other times of the day Blood specimen (specimen) 02/17/2015 2:03 PM EDT 02/17/2015 2:03 PM EDT Sanju Marcos MD POINT OF CARE TEST O JAMILAH Performing Organization Address [facility] de Phone Number [facility] * POCT Glucose (02/17/2015 8:38 AM EDT) Glucose, POC 176 60 - 199 mg/dL [facility] Comment: Supplemental ranges: <140 mg/dL before meals <180 mg/dL all other times of the day Blood specimen (specimen) 02/17/2015 8:38 AM EDT 02/17/2015 8:38 AM EDT Sanju Marcos MD POINT OF CARE TEST O JAMILAH Performing Organization Address [facility] de Phone Number [facility] * POCT Glucose (02/17/2015 8:36 AM EDT) Glucose, POC 186 60 - 199 mg/dL [facility] Comment: Supplemental ranges: <140 mg/dL before meals <180 mg/dL all other times of the day Blood specimen (specimen) 02/17/2015 8:36 AM EDT 02/17/2015 8:36 AM EDT Sanju Marcos MD POINT OF CARE TEST O JAMILAH Performing Organization Address [facility] de Phone Number [facility] * POCT Glucose (02/17/2015 7:04 AM EDT) Glucose, POC 91 60 - 199 mg/dL [facility] Comment: Supplemental ranges: <140 mg/dL before meals <180 mg/dL all other times of the day Blood specimen (specimen) 02/17/2015 7:04 AM EDT 02/17/2015 7:04 AM EDT Sanju Marcos MD POINT OF CARE TEST O JAMILAH Performing Organization Address [facility] de Phone Number [facility] * POCT Glucose (02/16/2015 7:01 PM EDT) Glucose, POC 111 60 - 199 mg/dL [facility] Comment: Supplemental ranges: <140 mg/dL before meals <180 mg/dL all other times of the day Blood specimen (specimen) 02/16/2015 7:01 PM EDT 02/16/2015 7:01 PM EDT Sanju Marcos MD POINT OF CARE TEST O JAMILAH Performing Organization Address [facility] de Phone Number [facility] * Antibody screen (02/16/2015 3:47 PM EDT) Ab Screen Interp Negative [facility] Expires at 2359 on: [id number] [facility] Blood specimen (specimen) 02/16/2015 3:47 PM EDT 02/16/2015 4:09 PM EDT Narrative Resulting Agency Comment Spec In Lab Sanju Marcos MD BLOOD BANK LAB ORDER CEDRICK Performing Organization Address [facility]/ZIP Co de Phone Number [facility] * ABO/Rh Typing (02/16/2015 3:47 PM EDT) ABORH Type A Pos [facility] Blood specimen (specimen) 02/16/2015 3:47 PM EDT 02/16/2015 4:09 PM EDT Narrative Resulting Agency Comment Spec In Lab Sanju Marcos MD BLOOD BANK LAB ORDER CEDRICK Performing Organization Address [facility] de Phone Number [facility] * POCT Glucose (02/16/2015 2:06 PM EDT) Glucose, POC 143 60 - 199 mg/dL [facility] Comment: Supplemental ranges: <140 mg/dL before meals <180 mg/dL all other times of the day Blood specimen (specimen) 02/16/2015 2:06 PM EDT 02/16/2015 2:06 PM EDT Sanju Marcos MD POINT OF CARE TEST O JAMILAH Performing Organization Address [facility] de Phone Number [facility] * POCT Glucose (02/16/2015 9:07 AM EDT) Glucose, POC 135 60 - 199 mg/dL [facility] Comment: Supplemental ranges: <140 mg/dL before meals <180 mg/dL all other times of the day Blood specimen (specimen) 02/16/2015 9:07 AM EDT 02/16/2015 9:07 AM EDT Sanju Marcos MD POINT OF CARE TEST O RDERAKELIN Performing Organization Address [facility] de Phone Number [facility] * POCT Glucose (02/16/2015 6:18 AM EDT) Glucose, POC 85 60 - 199 mg/dL [facility] Comment: Supplemental ranges: <140 mg/dL before meals <180 mg/dL all other times of the day Blood specimen (specimen) 02/16/2015 6:18 AM EDT 02/16/2015 6:18 AM EDT Sanju Marcos MD POINT OF CARE TEST O JAMILAH Performing Organization Address [facility] de Phone Number [facility] * POCT Glucose (02/15/2015 7:07 PM EDT) Glucose, POC 129 60 - 199 mg/dL [facility] Comment: Supplemental ranges: <140 mg/dL before meals <180 mg/dL all other times of the day Blood specimen (specimen) 02/15/2015 7:07 PM EDT 02/15/2015 7:07 PM EDT Sanju Marcos MD POINT OF CARE TEST O JAMILAH Performing Organization Address [facility] de Phone Number [facility] * POCT Glucose (02/15/2015 2:15 PM EDT) Glucose, POC 138 60 - 199 mg/dL [facility] Comment: Supplemental ranges: <140 mg/dL before meals <180 mg/dL all other times of the day Blood specimen (specimen) 02/15/2015 2:15 PM EDT 02/15/2015 2:15 PM EDT Sanju Marcos MD POINT OF CARE TEST O JAMILAH Performing Organization Address [facility] de Phone Number [facility] * POCT Glucose (02/15/2015 9:19 AM EDT) Glucose, POC 136 60 - 199 mg/dL [facility] Comment: Supplemental ranges: <140 mg/dL before meals <180 mg/dL all other times of the day Blood specimen (specimen) 02/15/2015 9:19 AM EDT 02/15/2015 9:19 AM EDT Sanju Marcos MD POINT OF CARE TEST O JAMILAH Performing Organization Address [facility] de Phone Number [facility] * POCT Glucose (02/15/2015 6:21 AM EDT) Glucose, POC 91 60 - 199 mg/dL [facility] Comment: Supplemental ranges: <140 mg/dL before meals <180 mg/dL all other times of the day Blood specimen (specimen) 02/15/2015 6:21 AM EDT 02/15/2015 6:21 AM EDT Sanju Marcos MD POINT OF CARE TEST O JAMILAH Performing Organization Address [facility] de Phone Number [facility] * POCT Glucose (02/14/2015 7:20 PM EDT) Glucose, POC 147 60 - 199 mg/dL [facility] Comment: Supplemental ranges: <140 mg/dL before meals <180 mg/dL all other times of the day Blood specimen (specimen) 02/14/2015 7:20 PM EDT 02/14/2015 7:20 PM EDT Sanju Marcos MD POINT OF CARE TEST O JAMILAH Performing Organization Address [facility] de Phone Number [facility] * POCT Glucose (02/14/2015 1:10 PM EDT) Glucose, POC 134 60 - 199 mg/dL [facility] Comment: Supplemental ranges: <140 mg/dL before meals <180 mg/dL all other times of the day Blood specimen (specimen) 02/14/2015 1:10 PM EDT 02/14/2015 1:10 PM EDT Sanju Marcos MD POINT OF CARE TEST O JAMILAH Performing Organization Address [facility] de Phone Number [facility] * POCT Glucose (02/14/2015 10:03 AM EDT) Glucose, POC 99 60 - 199 mg/dL [facility] Comment: Supplemental ranges: <140 mg/dL before meals <180 mg/dL all other times of the day Blood specimen (specimen) 02/14/2015 10:03 AM EDT 02/14/2015 10:03 AM EDT Sanju Marcos MD POINT OF CARE TEST O JAMILAH Performing Organization Address [facility] Co de Phone Number [facility] * POCT Glucose (02/14/2015 7:03 AM EDT) Glucose, POC 89 60 - 199 mg/dL [facility] Comment: Supplemental ranges: <140 mg/dL before meals <180 mg/dL all other times of the day Blood specimen (specimen) 02/14/2015 7:03 AM EDT 02/14/2015 7:03 AM EDT Sanju Marcos MD POINT OF CARE TEST O JAMILAH Performing Organization Address [facility] de Phone Number [facility] * POCT Glucose (02/13/2015 7:16 PM EDT) Glucose, POC 125 60 - 199 mg/dL [facility] Comment: Supplemental ranges: <140 mg/dL before meals <180 mg/dL all other times of the day Blood specimen (specimen) 02/13/2015 7:16 PM EDT 02/13/2015 7:16 PM EDT Sanju Marcos MD POINT OF CARE TEST O JAMILAH Performing Organization Address [facility] Co de Phone Number [facility] * Antibody screen (02/13/2015 3:22 PM EDT) Ab Screen Interp Negative [facility] Expires at 2359 on: [id number] [facility] Blood specimen (specimen) 02/13/2015 3:22 PM EDT 02/13/2015 3:22 PM EDT Narrative Resulting Agency Comment Spec In Lab Sanju Marcos MD BLOOD BANK LAB ORDER CEDRICK Performing Organization Address [facility]/ZIP Co de Phone Number [facility] * ABO/Rh Typing (02/13/2015 3:22 PM EDT) ABORH Type A Pos [facility] Blood specimen (specimen) 02/13/2015 3:22 PM EDT 02/13/2015 3:22 PM EDT Narrative Resulting Agency Comment Spec In Lab Sanju Marcos MD BLOOD BANK LAB ORDER CEDRICK Performing Organization Address [facility] Co de Phone Number [facility] * POCT Glucose (02/13/2015 1:12 PM EDT) Glucose, POC 123 60 - 199 mg/dL [facility] Comment: Supplemental ranges: <140 mg/dL before meals <180 mg/dL all other times of the day Blood specimen (specimen) 02/13/2015 1:12 PM EDT 02/13/2015 1:12 PM EDT Sanju Marcos MD POINT OF CARE TEST O JAMILAH Performing Organization Address [facility] Co de Phone Number [facility] * POCT Glucose (02/13/2015 10:07 AM EDT) Glucose, POC 128 60 - 199 mg/dL [facility] Comment: Supplemental ranges: <140 mg/dL before meals <180 mg/dL all other times of the day Blood specimen (specimen) 02/13/2015 10:07 AM EDT 02/13/2015 10:07 AM EDT Sanju Marcos MD POINT OF CARE TEST O RDERAKELIN Performing Organization Address [facility] Co de Phone Number [facility] * POCT Glucose (02/13/2015 8:19 AM EDT) Glucose, POC 110 60 - 199 mg/dL [facility] Comment: Supplemental ranges: <140 mg/dL before meals <180 mg/dL all other times of the day Blood specimen (specimen) 02/13/2015 8:19 AM EDT 02/13/2015 8:19 AM EDT Sanju Marcos MD POINT OF CARE TEST O JAMILAH Performing Organization Address [facility] de Phone Number [facility] * POCT Glucose (02/12/2015 7:46 PM EDT) Glucose, POC 104 60 - 199 mg/dL [facility] Comment: Supplemental ranges: <140 mg/dL before meals <180 mg/dL all other times of the day Blood specimen (specimen) 02/12/2015 7:46 PM EDT 02/12/2015 7:46 PM EDT Sanju Marcos MD POINT OF CARE TEST O JAMILAH Performing Organization Address [facility] de Phone Number [facility] * POCT Glucose (02/12/2015 2:11 PM EDT) Glucose, POC 115 60 - 199 mg/dL [facility] Comment: Supplemental ranges: <140 mg/dL before meals <180 mg/dL all other times of the day Blood specimen (specimen) 02/12/2015 2:11 PM EDT 02/12/2015 2:11 PM EDT Sanju Marcos MD POINT OF CARE TEST O JAMILAH Performing Organization Address [facility] de Phone Number [facility] * POCT Glucose (02/12/2015 9:48 AM EDT) Glucose, POC 115 60 - 199 mg/dL [facility] Comment: Supplemental ranges: <140 mg/dL before meals <180 mg/dL all other times of the day Blood specimen (specimen) 02/12/2015 9:48 AM EDT 02/12/2015 9:48 AM EDT Sanju Marcos MD POINT OF CARE TEST O RDERAKELIN Performing Organization Address [facility] Co de Phone Number [facility] * POCT Glucose (02/12/2015 8:06 AM EDT) Glucose, POC 95 60 - 199 mg/dL [facility] Comment: Supplemental ranges: <140 mg/dL before meals <180 mg/dL all other times of the day Blood specimen (specimen) 02/12/2015 8:06 AM EDT 02/12/2015 8:06 AM EDT Sanju Marcos MD POINT OF CARE TEST O JAMILAH Performing Organization Address [facility] Co de Phone Number [facility] * POCT Glucose (02/11/2015 7:47 PM EDT) Glucose, POC 115 60 - 199 mg/dL [facility] Comment: Supplemental ranges: <140 mg/dL before meals <180 mg/dL all other times of the day Blood specimen (specimen) 02/11/2015 7:47 PM EDT 02/11/2015 7:47 PM EDT Sanju Marcos MD POINT OF CARE TEST O JAMILAH Performing Organization Address [facility] Co de Phone Number [facility] * POCT Glucose (02/11/2015 9:42 AM EDT) Glucose, POC 153 60 - 199 mg/dL [facility] Comment: Supplemental ranges: <140 mg/dL before meals <180 mg/dL all other times of the day Blood specimen (specimen) 02/11/2015 9:42 AM EDT 02/11/2015 9:42 AM EDT Sanju Marcos MD POINT OF CARE TEST O RDRACHEAL Performing Organization Address [facility] Co de Phone Number [facility] * POCT Glucose (02/11/2015 6:33 AM EDT) Glucose, POC 90 60 - 199 mg/dL [facility] Comment: Supplemental ranges: <140 mg/dL before meals <180 mg/dL all other times of the day Blood specimen (specimen) 02/11/2015 6:33 AM EDT 02/11/2015 6:33 AM EDT Sanju Marcos MD POINT OF CARE TEST O RDERAKELIN Performing Organization Address [facility] Co de Phone Number [facility] * POCT Glucose (02/10/2015 7:49 PM EDT) Glucose, POC 121 60 - 199 mg/dL [facility] Comment: Supplemental ranges: <140 mg/dL before meals <180 mg/dL all other times of the day Blood specimen (specimen) 02/10/2015 7:49 PM EDT 02/10/2015 7:49 PM EDT Sanju Marcos MD POINT OF CARE TEST O JAMILAH Performing Organization Address [facility] Co de Phone Number [facility] * Antibody screen (02/10/2015 4:36 PM EDT) [facility] Ab Screen Interp Negative [facility] Expires at 2359 on: [id number] [facility] Blood specimen (specimen) 02/10/2015 4:36 PM EDT 02/10/2015 4:36 PM EDT Narrative Resulting Agency Comment Spec In Lab Sanju Marcos MD BLOOD BANK LAB ORDER CEDRICK Performing Organization Address [facility] Co de Phone Number [facility] * ABO/Rh Typing (02/10/2015 4:36 PM EDT) [facility] ABORH Type A Pos [facility] Blood specimen (specimen) 02/10/2015 4:36 PM EDT 02/10/2015 4:36 PM EDT Narrative Resulting Agency Comment Spec In Lab Sanju Marcos MD BLOOD BANK LAB ORDER CEDRICK Performing Organization Address [facility]/ZIP Co de Phone Number [facility] * POCT Glucose (02/10/2015 10:05 AM EDT) Glucose, POC 146 60 - 199 mg/dL [facility] Comment: Supplemental ranges: <140 mg/dL before meals <180 mg/dL all other times of the day Blood specimen (specimen) 02/10/2015 10:05 AM EDT 02/10/2015 10:05 AM EDT Sanju Marcos MD POINT OF CARE TEST O JAMILAH Performing Organization Address [facility] de Phone Number [facility] * POCT Glucose (02/10/2015 7:12 AM EDT) Glucose, POC 90 60 - 199 mg/dL [facility] Comment: Supplemental ranges: <140 mg/dL before meals <180 mg/dL all other times of the day Blood specimen (specimen) 02/10/2015 7:12 AM EDT 02/10/2015 7:12 AM EDT Sanju Marcos MD POINT OF CARE TEST O RDERAKELIN Performing Organization Address [facility] Co de Phone Number [facility] * POCT Glucose (02/09/2015 8:14 PM EDT) Glucose, POC 129 60 - 199 mg/dL [facility] Comment: Supplemental ranges: <140 mg/dL before meals <180 mg/dL all other times of the day Blood specimen (specimen) 02/09/2015 8:14 PM EDT 02/09/2015 8:14 PM EDT Sanju Marcos MD POINT OF CARE TEST O RDRACHEAL Performing Organization Address [facility] Co de Phone Number [facility] * POCT Glucose (02/09/2015 1:32 PM EDT) Glucose, POC 144 60 - 199 mg/dL [facility] Comment: Supplemental ranges: <140 mg/dL before meals <180 mg/dL all other times of the day Blood specimen (specimen) 02/09/2015 1:32 PM EDT 02/09/2015 1:32 PM EDT Sanju Marcos MD POINT OF CARE TEST O JAMILAH Performing Organization Address [facility] de Phone Number [facility] * POCT urine dipstick (02/09/2015 12:24 PM [...] MD POINT OF CARE TEST O ALEJANDRINAERAKELIN * POCT Glucose (02/09/2015 9:10 AM EDT) Glucose, POC 147 60 - 199 mg/dL [facility] Comment: Supplemental ranges: <140 mg/dL before meals <180 mg/dL all other times of the day Blood specimen (specimen) 02/09/2015 9:10 AM EDT 02/09/2015 9:10 AM EDT Sanju Marcos MD POINT OF CARE TEST O JAMILAH Performing Organization Address [facility] [facility] Co de Phone Number [facility] * POCT Glucose (02/09/2015 6:22 AM EDT) Glucose, POC 80 60 - 199 mg/dL [facility] Comment: Supplemental ranges: <140 mg/dL before meals <180 mg/dL all other times of the day Blood specimen (specimen) 02/09/2015 6:22 AM EDT 02/09/2015 6:22 AM EDT Sanju Marcos MD POINT OF CARE TEST O RDRACHEAL Performing Organization Address [facility] Phone Number [facility] [employer] [facility] * POCT Glucose (02/08/2015 7:03 PM EDT) Glucose, POC 144 60 - 199 mg/dL [facility] Comment: Supplemental ranges: <140 mg/dL before meals <180 mg/dL all other times of the day Blood specimen (specimen) 02/08/2015 7:03 PM EDT 02/08/2015 7:03 PM EDT Sanju Marcos MD POINT OF CARE TEST O JAMILAH Performing Organization Address [facility] Phone Number [facility] * POCT Glucose (02/08/2015 2:17 PM EDT) Glucose, POC 131 60 - 199 mg/dL [facility] Comment: Supplemental ranges: <140 mg/dL before meals <180 mg/dL all other times of the day Blood specimen (specimen) 02/08/2015 2:17 PM EDT 02/08/2015 2:17 PM EDT Sanju Marcos MD POINT OF CARE TEST O JAMILAH Performing Organization Address [facility] de Phone Number [facility] * POCT Glucose (02/08/2015 9:41 AM EDT) Glucose, POC 127 60 - 199 mg/dL [facility] Comment: Supplemental ranges: <140 mg/dL before meals <180 mg/dL all other times of the day Blood specimen (specimen) 02/08/2015 9:41 AM EDT 02/08/2015 9:41 AM EDT Sanju Marcos MD POINT OF CARE TEST O RDERAKELIN Performing Organization Address [facility] de Phone Number [facility] * POCT Glucose (02/08/2015 6:41 AM EDT) Glucose, POC 108 60 - 199 mg/dL [facility] Comment: Supplemental ranges: <140 mg/dL before meals <180 mg/dL all other times of the day Blood specimen (specimen) 02/08/2015 6:41 AM EDT 02/08/2015 6:41 AM EDT Sanju Marcos MD POINT OF CARE TEST O RDERAKELIN Performing Organization Address [facility] de Phone Number [facility] * POCT Glucose (02/07/2015 7:04 PM EDT) Glucose, POC 144 60 - 199 mg/dL [facility] Comment: Supplemental ranges: <140 mg/dL before meals <180 mg/dL all other times of the day Blood specimen (specimen) 02/07/2015 7:04 PM EDT 02/07/2015 7:04 PM EDT Sanju Marcos MD POINT OF CARE TEST O JAMILAH Performing Organization Address [facility] de Phone Number [facility] * Antibody screen (02/07/2015 4:25 PM EDT) Ab Screen Interp Negative [facility] Expires at 2359 on: [id number] [facility] Blood specimen (specimen) 02/07/2015 4:25 PM EDT 02/07/2015 4:47 PM EDT Narrative Resulting Agency Comment Spec In Lab Sanju Marcos MD BLOOD BANK LAB ORDER CEDRICK Performing Organization Address [facility] de Phone Number [facility] * ABO/Rh Typing (02/07/2015 4:25 PM EDT) ABORH Type A Pos [facility] Blood specimen (specimen) 02/07/2015 4:25 PM EDT 02/07/2015 4:47 PM EDT Narrative Resulting Agency Comment Spec In Lab Sanju Marcos MD BLOOD BANK LAB ORDER CEDRICK Performing Organization Address [facility] de Phone Number [facility] * POCT Glucose (02/07/2015 2:16 PM EDT) Glucose, POC 106 60 - 199 mg/dL [facility] Comment: Supplemental ranges: <140 mg/dL before meals <180 mg/dL all other times of the day Blood specimen (specimen) 02/07/2015 2:16 PM EDT 02/07/2015 2:16 PM EDT Sanju Marcos MD POINT OF CARE TEST O RDERAKELIN Performing Organization Address [facility] Phone Number [facility] * POCT Glucose (02/07/2015 9:04 AM EDT) Glucose, POC 112 60 - 199 mg/dL [facility] Comment: Supplemental ranges: <140 mg/dL before meals <180 mg/dL all other times of the day Blood specimen (specimen) 02/07/2015 9:04 AM EDT 02/07/2015 9:04 AM EDT Sanju Marcos MD POINT OF CARE TEST O RDERAKELIN Performing Organization Address [facility] de Phone Number [facility] * POCT Glucose (02/07/2015 6:20 AM EDT) Glucose, POC 89 60 - 199 mg/dL [facility] Comment: Supplemental ranges: <140 mg/dL before meals <180 mg/dL all other times of the day Blood specimen (specimen) 02/07/2015 6:20 AM EDT 02/07/2015 6:20 AM EDT Sanju Marcos MD POINT OF CARE TEST O RDRACHEAL Performing Organization Address [facility]/ZIP Co de Phone Number [facility] * POCT Glucose (02/06/2015 8:30 PM EDT) Glucose, POC 137 60 - 199 mg/dL [facility] Comment: Supplemental ranges: <140 mg/dL before meals <180 mg/dL all other times of the day Blood specimen (specimen) 02/06/2015 8:30 PM EDT 02/06/2015 8:30 PM EDT Sanju Marcos MD POINT OF CARE TEST O JAMILAH Performing Organization Address [facility] Co de Phone Number [facility] * POCT Glucose (02/06/2015 2:31 PM EDT) Glucose, POC 112 60 - 199 mg/dL [facility] Comment: Supplemental ranges: <140 mg/dL before meals <180 mg/dL all other times of the day Blood specimen (specimen) 02/06/2015 2:31 PM EDT 02/06/2015 2:31 PM EDT Sanju Marcos MD POINT OF CARE TEST O JAMILAH Performing Organization Address City/[facility] Co de Phone Number [facility] * (ABNORMAL) Differential, Automated (02/06/2015 12:40 [...] Resulting Agency Comment Spec In Lab Sanju Daniels Performing Organization Address City/State/ZIP Co ar Phone Number [facility] * OB follow up evaluation (02/06/2015 11:31 AM EDT) Anatomical Region Laterality Modality Pelvis, Abdomen Ultrasound 02/06/2015 11:3 1 AM EDT Narrative 02/06/2015 12:48 PM EDT OBSTETRICS REPORT ?(Signed Final 02/06/2015 12:48 ? pm) Patient Info ID #: ? [id number] ?: ??[birth year] (29 yrs)(F) Name: ? MARTINEZ RICHARDSON ?Visit Date: 02/06/2015 11:24 am Performed By Performed By: ?Barbara Ruiz RDMS Attending: ? Schuyler Steiner MD ??Ghada Referred By: ? ZEE PUCKETT MD Service(s) Provided ??UOBFOL - Efw - Growth - Irene - [id number] ? [id number] Indications ??follow-up growth Evaluation Num Of Fetuses: [...] 02/06/2015 12:48 pm) Patient Info ID #: [id number] : [birth year] (29 yrs)(F) Name: MARTINEZ RICHARDSON Visit Date: 02/06/2015 11:24 am Performed By Performed By: Barbara Ruiz RDMS Attending: Schuyler Steiner MD Referred By: ZEE PUCKETT MD Service(s) Provided UOBFOL - Efw - Growth - Irene - [id number] [id number] Indications follow-up growth Evaluation Num Of Fetuses: [...] and agree with the above interpretation. Schuyler Steiner MD Electronically Signed Final Report 02/06/2015 12:48 pm Sanju Marcos MD IMG US OB ORDERABLES * POCT Glucose (02/06/2015 10:03 AM EDT) Glucose, POC 143 60 - 199 mg/dL [facility] Comment: Supplemental ranges: <140 mg/dL before meals <180 mg/dL all other times of the day Blood specimen (specimen) 02/06/2015 10:03 AM EDT 02/06/2015 10:03 AM EDT Sanju Marcos MD POINT OF CARE TEST O JAMILAH Performing Organization Address [facility] de Phone Number [facility] * POCT Glucose (02/06/2015 7:27 AM EDT) Glucose, POC 90 60 - 199 mg/dL [facility] Comment: Supplemental ranges: <140 mg/dL before meals <180 mg/dL all other times of the day Blood specimen (specimen) 02/06/2015 7:27 AM EDT 02/06/2015 7:27 AM EDT Sajnu Marcos MD POINT OF CARE TEST O JAMILAH Performing Organization Address [facility] de Phone Number [facility] * POCT Glucose (02/05/2015 7:14 PM EDT) Glucose, POC 144 60 - 199 mg/dL [facility] Comment: Supplemental ranges: <140 mg/dL before meals <180 mg/dL all other times of the day Blood specimen (specimen) 02/05/2015 7:14 PM EDT 02/05/2015 7:14 PM EDT Sanju Marcos MD POINT OF CARE TEST O JAMILAH Performing Organization Address [facility] Co de Phone Number [facility] * POCT Glucose (02/05/2015 2:11 PM EDT) Glucose, POC 128 60 - 199 mg/dL [facility] Comment: Supplemental ranges: <140 mg/dL before meals <180 mg/dL all other times of the day Blood specimen (specimen) 02/05/2015 2:11 PM EDT 02/05/2015 2:11 PM EDT Sanju Marcos MD POINT OF CARE TEST O JAMILAH Performing Organization Address [facility] de Phone Number [facility] * POCT Glucose (02/05/2015 10:01 AM EDT) Glucose, POC 127 60 - 199 mg/dL [facility] Comment: Supplemental ranges: <140 mg/dL before meals <180 mg/dL all other times of the day Blood specimen (specimen) 02/05/2015 10:01 AM EDT 02/05/2015 10:01 AM EDT Sanju Marcos MD POINT OF CARE TEST O JAMILAH Performing Organization Address [facility] de Phone Number [facility] * POCT Glucose (02/05/2015 6:58 AM EDT) Glucose, POC 99 60 - 199 mg/dL [facility] Comment: Supplemental ranges: <140 mg/dL before meals <180 mg/dL all other times of the day Blood specimen (specimen) 02/05/2015 6:58 AM EDT 02/05/2015 6:58 AM EDT Sanju Marcos MD POINT OF CARE TEST O RDERAKELIN Performing Organization Address [facility] de Phone Number [facility] * Antibody screen (02/04/2015 9:20 PM EDT) Ab Screen Interp Negative [facility] Expires at 2359 on: [id number] [facility] Blood specimen (specimen) 02/04/2015 9:20 PM EDT 02/04/2015 9:27 PM EDT Narrative Resulting Agency Comment Spec In Lab Sanju Marcos MD BLOOD BANK LAB ORDER CEDRICK Performing Organization Address [facility] Co de Phone Number [facility] * ABO/Rh Typing (02/04/2015 9:20 PM EDT) ABORH Type A Pos [facility] Blood specimen (specimen) 02/04/2015 9:20 PM EDT 02/04/2015 9:27 PM EDT Narrative Resulting Agency Comment Spec In Lab Sanju Marcos MD BLOOD BANK LAB ORDER CEDRICK Performing Organization Address [facility] de Phone Number [facility] * POCT Glucose (02/04/2015 7:03 PM EDT) Glucose, POC 109 60 - 199 mg/dL [facility] Comment: Supplemental ranges: <140 mg/dL before meals <180 mg/dL all other times of the day Blood specimen (specimen) 02/04/2015 7:03 PM EDT 02/04/2015 7:03 PM EDT Sanju Marcos MD POINT OF CARE TEST O RDERABLES Performing Organization Address [facility] de Phone Number [facility] * POCT Glucose (02/04/2015 2:15 PM EDT) Glucose, POC 137 60 - 199 mg/dL [facility] Comment: Supplemental ranges: <140 mg/dL before meals <180 mg/dL all other times of the day Blood specimen (specimen) 02/04/2015 2:15 PM EDT 02/04/2015 2:15 PM EDT Sanju Marcos MD POINT OF CARE TEST O RDERABLES Performing Organization Address [facility] Co de Phone Number [facility] * POCT Glucose (02/04/2015 9:50 AM EDT) Glucose, POC 137 60 - 199 mg/dL [facility] Comment: Supplemental ranges: <140 mg/dL before meals <180 mg/dL all other times of the day Blood specimen (specimen) 02/04/2015 9:50 AM EDT 02/04/2015 9:50 AM EDT Sanju Marcos MD POINT OF CARE TEST O JAMILAH Performing Organization Address [facility] Co de Phone Number [facility] * POCT Glucose (02/04/2015 7:05 AM EDT) Glucose, POC 85 60 - 199 mg/dL [facility] Comment: Supplemental ranges: <140 mg/dL before meals <180 mg/dL all other times of the day Blood specimen (specimen) 02/04/2015 7:05 AM EDT 02/04/2015 7:05 AM EDT Sanju Marcos MD POINT OF CARE TEST O JAMILAH Performing Organization Address [facility] de Phone Number [facility] * POCT Glucose (02/03/2015 8:08 PM EDT) Glucose, POC 123 60 - 199 mg/dL [facility] Comment: Supplemental ranges: <140 mg/dL before meals <180 mg/dL all other times of the day Blood specimen (specimen) 02/03/2015 8:08 PM EDT 02/03/2015 8:08 PM EDT Sanju Marcos MD POINT OF CARE TEST O JAMILAH Performing Organization Address [facility] de Phone Number [facility] * POCT Glucose (02/03/2015 1:52 PM EDT) Glucose, POC 130 60 - 199 mg/dL [facility] Comment: Supplemental ranges: <140 mg/dL before meals <180 mg/dL all other times of the day Blood specimen (specimen) 02/03/2015 1:52 PM EDT 02/03/2015 1:52 PM EDT Sanju Marcos MD POINT OF CARE TEST O JAMILAH Performing Organization Address [facility] Phone Number [facility] * POCT Glucose (02/03/2015 9:43 AM EDT) Glucose, POC 148 60 - 199 mg/dL [facility] Comment: Supplemental ranges: <140 mg/dL before meals <180 mg/dL all other times of the day Blood specimen (specimen) 02/03/2015 9:43 AM EDT 02/03/2015 9:43 AM EDT Sanju Marcos MD POINT OF CARE TEST O JAMILAH Performing Organization Address [facility] Phone Number [facility] * POCT Glucose (02/03/2015 6:52 AM EDT) Glucose, POC 86 60 - 199 mg/dL [facility] Comment: Supplemental ranges: <140 mg/dL before meals <180 mg/dL all other times of the day Blood specimen (specimen) 02/03/2015 6:52 AM EDT 02/03/2015 6:52 AM EDT Sanju Marcos MD POINT OF CARE TEST O JAMILAH Performing Organization Address [facility] Phone Number [facility] * POCT Glucose (02/02/2015 8:37 PM EDT) Glucose, POC 127 60 - 199 mg/dL [facility] Comment: Supplemental ranges: <140 mg/dL before meals <180 mg/dL all other times of the day Blood specimen (specimen) 02/02/2015 8:37 PM EDT 02/02/2015 8:37 PM EDT Sanju Marcos MD POINT OF CARE TEST O RDERAKELIN Performing Organization Address [facility] Co de Phone Number [facility] * POCT Glucose (02/02/2015 2:22 PM EDT) Glucose, POC 183 60 - 199 mg/dL [facility] Comment: Supplemental ranges: <140 mg/dL before meals <180 mg/dL all other times of the day Blood specimen (specimen) 02/02/2015 2:22 PM EDT 02/02/2015 2:22 PM EDT Sanju Marcos MD POINT OF CARE TEST O RDRACHEAL Performing Organization Address [facility] de Phone Number [facility] * POCT Glucose (02/02/2015 9:33 AM EDT) Glucose, POC 175 60 - 199 mg/dL [facility] Comment: Supplemental ranges: <140 mg/dL before meals <180 mg/dL all other times of the day Blood specimen (specimen) 02/02/2015 9:33 AM EDT 02/02/2015 9:33 AM EDT Sanju Marcos MD POINT OF CARE TEST O RDRACHEAL Performing Organization Address [facility] de Phone Number [facility] * POCT Glucose (02/02/2015 6:45 AM EDT) Glucose, POC 87 60 - 199 mg/dL [facility] Comment: Supplemental ranges: <140 mg/dL before meals <180 mg/dL all other times of the day Blood specimen (specimen) 02/02/2015 6:45 AM EDT 02/02/2015 6:45 AM EDT Sanju Marcos MD POINT OF CARE TEST O RDERABLES Performing Organization Address [facility] Co de Phone Number [facility] * Antibody screen (02/01/2015 10:10 PM EDT) Ab Screen [facility]p [facility] Expires at 2359 on: [id number] [facility] Blood specimen (specimen) 02/01/2015 10:10 PM EDT 02/01/2015 10:36 PM EDT Narrative Resulting Agency Comment Spec In Lab Sanju Marcos MD BLOOD BANK LAB ORDER CEDRICK Performing Organization Address [facility] Co de Phone Number [facility] * ABO/Rh Typing (02/01/2015 10:10 PM EDT) ABORH Type A Pos [facility] Blood specimen (specimen) 02/01/2015 10:10 PM EDT 02/01/2015 10:36 PM EDT Narrative Resulting Agency Comment Spec In Lab Sanju Marcos MD BLOOD BANK LAB ORDER CEDRICK Performing Organization Address [facility] de Phone Number [facility] * POCT Glucose (02/01/2015 7:09 PM EDT) Glucose, POC 146 60 - 199 mg/dL [facility] Comment: Supplemental ranges: <140 mg/dL before meals <180 mg/dL all other times of the day Blood specimen (specimen) 02/01/2015 7:09 PM EDT 02/01/2015 7:09 PM EDT Sanju Marcos MD POINT OF CARE TEST O RDERABLES Performing Organization Address [facility] Co de Phone Number [facility] * POCT Glucose (02/01/2015 12:57 PM EDT) Glucose, POC 122 60 - 199 mg/dL [facility] Comment: Supplemental ranges: <140 mg/dL before meals <180 mg/dL all other times of the day Blood specimen (specimen) 02/01/2015 12:57 PM EDT 02/01/2015 12:57 PM EDT Sanju Marcos MD POINT OF CARE TEST O RDRACHEAL Performing Organization Address [facility] Co de Phone Number [facility] * POCT Glucose (02/01/2015 9:41 AM EDT) Glucose, POC 144 60 - 199 mg/dL [facility] Comment: Supplemental ranges: <140 mg/dL before meals <180 mg/dL all other times of the day Blood specimen (specimen) 02/01/2015 9:41 AM EDT 02/01/2015 9:41 AM EDT Sanju Marcos MD POINT OF CARE TEST O JAMILAH Performing Organization Address [facility] de Phone Number [facility] * POCT Glucose (02/01/2015 6:58 AM EDT) Glucose, POC 85 60 - 199 mg/dL [facility] Comment: Supplemental ranges: <140 mg/dL before meals <180 mg/dL all other times of the day Blood specimen (specimen) 02/01/2015 6:58 AM EDT 02/01/2015 6:58 AM EDT Sanju Marcos MD POINT OF CARE TEST O JAMILAH Performing Organization Address [facility] de Phone Number [facility] * POCT Glucose (01/31/2015 7:04 PM EDT) Glucose, POC 151 60 - 199 mg/dL [facility] Comment: Supplemental ranges: <140 mg/dL before meals <180 mg/dL all other times of the day Blood specimen (specimen) 01/31/2015 7:04 PM EDT 01/31/2015 7:04 PM EDT Sanju Marcos MD POINT OF CARE TEST O RDRACHEAL Performing Organization Address [facility] Co de Phone Number [facility] * POCT Glucose (01/31/2015 2:09 PM EDT) Glucose, POC 144 60 - 199 mg/dL [facility] Comment: Supplemental ranges: <140 mg/dL before meals <180 mg/dL all other times of the day Blood specimen (specimen) 01/31/2015 2:09 PM EDT 01/31/2015 2:09 PM EDT Sanju Marcos MD POINT OF CARE TEST O JAMILAH Performing Organization Address [facility] de Phone Number [facility] * POCT Glucose (01/31/2015 9:32 AM EDT) Glucose, POC 150 60 - 199 mg/dL [facility] Comment: Supplemental ranges: <140 mg/dL before meals <180 mg/dL all other times of the day Blood specimen (specimen) 01/31/2015 9:32 AM EDT 01/31/2015 9:32 AM EDT Sanju Marcos MD POINT OF CARE TEST O JAMILAH Performing Organization Address [facility] de Phone Number [facility] * POCT Glucose (01/31/2015 6:36 AM EDT) Glucose, POC 87 60 - 199 mg/dL [facility] Comment: Supplemental ranges: <140 mg/dL before meals <180 mg/dL all other times of the day Blood specimen (specimen) 01/31/2015 6:36 AM EDT 01/31/2015 6:36 AM EDT Sanju Marcos MD POINT OF CARE TEST O JAMILAH Performing Organization Address [facility] de Phone Number [facility] * POCT Glucose (01/30/2015 8:12 PM EDT) Glucose, POC 120 60 - 199 mg/dL [facility] Comment: Supplemental ranges: <140 mg/dL before meals <180 mg/dL all other times of the day Blood specimen (specimen) 01/30/2015 8:12 PM EDT 01/30/2015 8:12 PM EDT Sanju Marcos MD POINT OF CARE TEST O RDRACHEAL Performing Organization Address [facility] de Phone Number [facility] * POCT Glucose (01/30/2015 3:16 PM EDT) Glucose, POC 121 60 - 199 mg/dL [facility] Comment: Supplemental ranges: <140 mg/dL before meals <180 mg/dL all other times of the day Blood specimen (specimen) 01/30/2015 3:16 PM EDT 01/30/2015 3:16 PM EDT Sanju Marcos MD POINT OF CARE TEST O JAMILAH Performing Organization Address [facility] Phone Number [facility] * POCT Glucose (01/30/2015 10:09 AM EDT) Glucose, POC 161 60 - 199 mg/dL [facility] Comment: Supplemental ranges: <140 mg/dL before meals <180 mg/dL all other times of the day Blood specimen (specimen) 01/30/2015 10:09 AM EDT 01/30/2015 10:09 AM EDT Sanju Marcos MD POINT OF CARE TEST O JAMILAH Performing Organization Address [facility] de Phone Number [facility] * POCT Glucose (01/30/2015 6:55 AM EDT) Glucose, POC 105 60 - 199 mg/dL [facility] Comment: Supplemental ranges: <140 mg/dL before meals <180 mg/dL all other times of the day Blood specimen (specimen) 01/30/2015 6:55 AM EDT 01/30/2015 6:55 AM EDT Sanju Marcos MD POINT OF CARE TEST O RDRACHEAL Performing Organization Address [facility] Co de Phone Number [facility] * POCT Glucose (01/29/2015 7:25 PM EDT) Glucose, POC 146 60 - 199 mg/dL [facility] Comment: Supplemental ranges: <140 mg/dL before meals <180 mg/dL all other times of the day Blood specimen (specimen) 01/29/2015 7:25 PM EDT 01/29/2015 7:25 PM EDT Sanju Marcos MD POINT OF CARE TEST O RDERABLES Performing Organization Address [facility] Co de Phone Number [facility] * Antibody screen (01/29/2015 7:25 PM EDT) Pathologist [facility] Ab Screen Interp Negative [facility] Expires at 2359 on: [id number] [facility] Blood specimen (specimen) 01/29/2015 7:25 PM EDT 01/29/2015 7:33 PM EDT Narrative Resulting Agency Comment Spec In Lab Sanju Marcos MD BLOOD BANK LAB ORDER CEDRICK Performing Organization Address [facility] Co de Phone Number [facility] * ABO/Rh Typing (01/29/2015 7:25 PM EDT) [facility] ABORH Type A Pos [facility] Blood specimen (specimen) 01/29/2015 7:25 PM EDT 01/29/2015 7:33 PM EDT Narrative Resulting Agency Comment Spec In Lab Sanju Marcos MD BLOOD BANK LAB ORDER CEDRICK Performing Organization Address [facility] Co de Phone Number [facility] * POCT Glucose (01/29/2015 2:17 PM EDT) Glucose, POC 154 60 - 199 mg/dL [facility] Comment: Supplemental ranges: <140 mg/dL before meals <180 mg/dL all other times of the day Blood specimen (specimen) 01/29/2015 2:17 PM EDT 01/29/2015 2:17 PM EDT Sanju Marcos MD POINT OF CARE TEST O RDERAKELIN Performing Organization Address [facility] de Phone Number [facility] * POCT Glucose (01/29/2015 10:04 AM EDT) Glucose, POC 150 60 - 199 mg/dL [facility] Comment: Supplemental ranges: <140 mg/dL before meals <180 mg/dL all other times of the day Blood specimen (specimen) 01/29/2015 10:04 AM EDT 01/29/2015 10:04 AM EDT Sanju Marcos MD POINT OF CARE TEST O JAMILAH Performing Organization Address [facility] de Phone Number [facility] * POCT Glucose (01/29/2015 6:07 AM EDT) Glucose, POC 93 60 - 199 mg/dL [facility] Comment: Supplemental ranges: <140 mg/dL before meals <180 mg/dL all other times of the day Blood specimen (specimen) 01/29/2015 6:07 AM EDT 01/29/2015 6:07 AM EDT Sanju Marcos MD POINT OF CARE TEST O RDRACHEAL Performing Organization Address [facility] de Phone Number [facility] * POCT Glucose (01/28/2015 7:09 PM EST) Glucose, POC 123 60 - 199 mg/dL [facility] Comment: Supplemental ranges: <140 mg/dL before meals <180 mg/dL all other times of the day Blood specimen (specimen) 01/28/2015 7:09 PM EST 01/28/2015 7:09 PM EST Sanju Marcos MD POINT OF CARE TEST O RDERAKELIN Performing Organization Address [facility] Co de Phone Number [facility] * POCT Glucose (01/28/2015 2:41 PM EST) Glucose, POC 149 60 - 199 mg/dL [facility] Comment: Supplemental ranges: <140 mg/dL before meals <180 mg/dL all other times of the day Blood specimen (specimen) 01/28/2015 2:41 PM EST 01/28/2015 2:41 PM EST Sanju Marcos MD POINT OF CARE TEST O RDRACHEAL Performing Organization Address [facility] Phone Number [facility] * POCT Glucose (01/28/2015 10:24 AM EST) Glucose, POC 177 60 - 199 mg/dL [facility] Comment: Supplemental ranges: <140 mg/dL before meals <180 mg/dL all other times of the day Blood specimen (specimen) 01/28/2015 10:24 AM EST 01/28/2015 10:24 AM EST Sanju Marcos MD POINT OF CARE TEST O JAMILAH Performing Organization Address [facility] Phone Number [facility] * POCT Glucose (01/28/2015 8:13 AM EST) Glucose, POC 89 60 - 199 mg/dL [facility] Comment: Supplemental ranges: <140 mg/dL before meals <180 mg/dL all other times of the day Blood specimen (specimen) 01/28/2015 8:13 AM EST 01/28/2015 8:13 AM EST Sanju Marcos MD POINT OF CARE TEST O RDERAKELIN Performing Organization Address [facility] Phone Number [facility] * POCT Glucose (01/27/2015 7:37 PM EST) Glucose, POC 131 60 - 199 mg/dL [facility] Comment: Supplemental ranges: <140 mg/dL before meals <180 mg/dL all other times of the day Blood specimen (specimen) 01/27/2015 7:37 PM EST 01/27/2015 7:37 PM EST Sanju Marcos MD POINT OF CARE TEST O RDERAKELIN Performing Organization Address [facility] Co de Phone Number [facility] * POCT Glucose (01/27/2015 2:35 PM EST) Glucose, POC 129 60 - 199 mg/dL [facility] Comment: Supplemental ranges: <140 mg/dL before meals <180 mg/dL all other times of the day Blood specimen (specimen) 01/27/2015 2:35 PM EST 01/27/2015 2:35 PM EST Sanju Marcos MD POINT OF CARE TEST O RDRACHEAL Performing Organization Address [facility] de Phone Number [facility] * POCT Glucose (01/27/2015 11:19 AM EST) Glucose, POC 135 60 - 199 mg/dL [facility] JETENNIUM Comment: Supplemental ranges: <140 mg/dL before meals <180 mg/dL all other times of the day Blood specimen (specimen) 01/27/2015 11:19 AM EST 01/27/2015 11:19 AM EST Sanju Marcos MD POINT OF CARE TEST O RDERAKELIN Performing Organization Address [facility] de Phone Number [facility] * (ABNORMAL) Differential, Automated (01/27/2015 10:45 AM EST) Neutrophil % 69.1 % CERNER MILLENNIUM Neutrophil Absolute 6.69(H) 1.50 - 6.30 [...] Platelet Volume 9.6 9.0 - 12.0 fL [facility] MILLENNIUM Blood specimen (specimen) 01/27/2015 10:45 AM EST 01/27/2015 11:06 AM EST Narrative Resulting Agency Comment Spec In Lab Sanju Marcos MD HEMATOLOGY ORDERABLE S Performing Organization Address [facility] Co de Phone Number [employer] [facility] CL[facility] CHAUDHARYENNIUM * (ABNORMAL) Magnesium (01/27/2015 10:45 AM EST) Magnesium 1.25(H) 0.69 - 1.07 mmol/L [employer] [facility] [facility] CHAUDHARYENNIUM Blood specimen (specimen) 01/27/2015 10:45 AM EST 01/27/2015 11:06 AM EST Narrative Resulting Agency Comment Spec In Lab Sanju Marcos MD CHEMISTRY ORDERABLES Performing Organization Address [facility] de Phone Number [employer] [facility] CHAUDHARYENNIUM * (ABNORMAL) Creatinine (01/27/2015 10:45 AM EST) Creatinine 0.53(L) 0.70 - 1.20 mg/dL [facility] JETENNIUM Comment: Please note that the pediatric reference intervals supplied above were not validated at [facility]. Results from pediatric patients should be interpreted in conjunction to the patient's age, height and muscle mass. Est Glomerular Filtration Rate >60 >=60 [facility] Comment: This estimated GFR (eGFR) value was [...] the following links into your internet browser. [email or web address] Blood specimen (specimen) 01/27/2015 10:45 AM EST 01/27/2015 11:06 AM EST Narrative Resulting Agency Comment Spec In Lab Sanju Marcos MD CHEMISTRY ORDERABLES Performing Organization Address [facility] Co de Phone Number [facility] * Aspartate Aminotransferase (01/27/2015 10:45 AM EST) Aspartate Aminotransferase 13 0 - 30 unit/L [facility] Blood specimen (specimen) 01/27/2015 10:45 AM EST 01/27/2015 11:06 AM EST Narrative Resulting Agency Comment Spec In Lab Sanju Marcos MD CHEMISTRY ORDERABLES Performing Organization Address [facility] Co de Phone Number [facility] * POCT Glucose (01/27/2015 8:15 AM EST) Pathologist [facility] Glucose, POC 87 60 - 199 mg/dL [facility] Comment: Supplemental ranges: <140 mg/dL before meals <180 mg/dL all other times of the day Blood specimen (specimen) 01/27/2015 8:15 AM EST 01/27/2015 8:15 AM EST Sanju Marcos MD POINT OF CARE TEST O RDERABLES Performing Organization Address [facility] de Phone Number [facility] * Antibody screen (01/26/2015 9:15 PM EST) Pathologist [facility] Ab Screen Interp Negative [facility] Expires at 2359 on: [id number] [facility] Blood specimen (specimen) 01/26/2015 9:15 PM EST 01/26/2015 9:31 PM EST Narrative Resulting Agency Comment Spec In Lab Sanju Marcos MD BLOOD BANK LAB ORDER CEDRICK Performing Organization Address [facility] Co de Phone Number [facility] * ABO/Rh Typing (01/26/2015 9:15 PM EST) ABORH Type A Pos [facility] Blood specimen (specimen) 01/26/2015 9:15 PM EST 01/26/2015 9:31 PM EST Narrative Resulting Agency Comment Spec In Lab Sanju Marcos MD BLOOD BANK LAB ORDER CEDRICK Performing Organization Address [facility] Co de Phone Number [facility] * POCT Glucose (01/26/2015 7:27 PM EST) Glucose, POC 134 60 - 199 mg/dL [facility] Comment: Supplemental ranges: <140 mg/dL before meals <180 mg/dL all other times of the day Blood specimen (specimen) 01/26/2015 7:27 PM EST 01/26/2015 7:27 PM EST Sanju Marcos MD POINT OF CARE TEST O RDERAKELIN Performing Organization Address [facility] de Phone Number [facility] * POCT Glucose (01/26/2015 1:35 PM EST) Glucose, POC 134 60 - 199 mg/dL [facility] Comment: Supplemental ranges: <140 mg/dL before meals <180 mg/dL all other times of the day Blood specimen (specimen) 01/26/2015 1:35 PM EST 01/26/2015 1:35 PM EST Sanju Marcos MD POINT OF CARE TEST O RDERAKELIN Performing Organization Address [facility] de Phone Number [facility] * POCT Glucose (01/26/2015 9:41 AM EST) Glucose, POC 154 60 - 199 mg/dL [facility] Comment: Supplemental ranges: <140 mg/dL before meals <180 mg/dL all other times of the day Blood specimen (specimen) 01/26/2015 9:41 AM EST 01/26/2015 9:41 AM EST Sanju Marcos MD POINT OF CARE TEST O RDERAKELIN Performing Organization Address [facility] Co de Phone Number [facility] * POCT Glucose (01/26/2015 8:37 AM EST) Glucose, POC 126 60 - 199 mg/dL [facility] Comment: Supplemental ranges: <140 mg/dL before meals <180 mg/dL all other times of the day Blood specimen (specimen) 01/26/2015 8:37 AM EST 01/26/2015 8:37 AM EST Sanju Marcos MD POINT OF CARE TEST O JAMILAH Performing Organization Address [facility] de Phone Number [facility] * POCT Glucose (01/25/2015 7:38 PM EST) Glucose, POC 105 60 - 199 mg/dL [facility] Comment: Supplemental ranges: <140 mg/dL before meals <180 mg/dL all other times of the day Blood specimen (specimen) 01/25/2015 7:38 PM EST 01/25/2015 7:38 PM EST Sanju Marcos MD POINT OF CARE TEST O JAMILAH Performing Organization Address [facility] de Phone Number [facility] * POCT Glucose (01/25/2015 1:32 PM EST) Glucose, POC 142 60 - 199 mg/dL [facility] Comment: Supplemental ranges: <140 mg/dL before meals <180 mg/dL all other times of the day Blood specimen (specimen) 01/25/2015 1:32 PM EST 01/25/2015 1:32 PM EST Sanju Marcos MD POINT OF CARE TEST O JAMILAH Performing Organization Address [facility] de Phone Number [facility] * POCT Glucose (01/25/2015 9:27 AM EST) Glucose, POC 137 60 - 199 mg/dL [facility] Comment: Supplemental ranges: <140 mg/dL before meals <180 mg/dL all other times of the day Blood specimen (specimen) 01/25/2015 9:27 AM EST 01/25/2015 9:27 AM EST Sanju Marcos MD POINT OF CARE TEST O RDERAKELIN Performing Organization Address [facility] Phone Number [facility] * POCT Glucose (01/25/2015 7:06 AM EST) Glucose, POC 100 60 - 199 mg/dL [facility] Comment: Supplemental ranges: <140 mg/dL before meals <180 mg/dL all other times of the day Blood specimen (specimen) 01/25/2015 7:06 AM EST 01/25/2015 7:06 AM EST Sanju Marcos MD POINT OF CARE TEST O RDERAKELIN Performing Organization Address [facility] Phone Number [facility] * POCT Glucose (01/24/2015 7:31 PM EST) Glucose, POC 112 60 - 199 mg/dL [facility] Comment: Supplemental ranges: <140 mg/dL before meals <180 mg/dL all other times of the day Blood specimen (specimen) 01/24/2015 7:31 PM EST 01/24/2015 7:31 PM EST Sanju Marcos MD POINT OF CARE TEST O RDRACHEAL Performing Organization Address [facility] Phone Number [facility] * POCT Glucose (01/24/2015 2:23 PM EST) Glucose, POC 160 60 - 199 mg/dL [facility] Comment: Supplemental ranges: <140 mg/dL before meals <180 mg/dL all other times of the day Blood specimen (specimen) 01/24/2015 2:23 PM EST 01/24/2015 2:23 PM EST Sanju Marcos MD POINT OF CARE TEST O RDERAKELIN Performing Organization Address [facility] Phone Number [facility] * POCT Glucose (01/24/2015 10:09 AM EST) Glucose, POC 158 60 - 199 mg/dL [facility] Comment: Supplemental ranges: <140 mg/dL before meals <180 mg/dL all other times of the day Blood specimen (specimen) 01/24/2015 10:09 AM EST 01/24/2015 10:09 AM EST Sanju Marcos MD POINT OF CARE TEST O JAMILAH Performing Organization Address [facility] Co de Phone Number [facility] * POCT Glucose (01/24/2015 6:59 AM EST) Glucose, POC 80 60 - 199 mg/dL [facility] Comment: Supplemental ranges: <140 mg/dL before meals <180 mg/dL all other times of the day Blood specimen (specimen) 01/24/2015 6:59 AM EST 01/24/2015 6:59 AM EST Sanju Marcos MD POINT OF CARE TEST O JAMILAH Performing Organization Address [facility] Co de Phone Number [facility] * POCT Glucose (01/23/2015 7:31 PM EST) Glucose, POC 118 60 - 199 mg/dL [facility] Comment: Supplemental ranges: <140 mg/dL before meals <180 mg/dL all other times of the day Blood specimen (specimen) 01/23/2015 7:31 PM EST 01/23/2015 7:31 PM EST Sanju Marcos MD POINT OF CARE TEST O JAMILAH Performing Organization Address [facility] Co de Phone Number [facility] * POCT Glucose (01/23/2015 2:51 PM EST) Glucose, POC 113 60 - 199 mg/dL [facility] Comment: Supplemental ranges: <140 mg/dL before meals <180 mg/dL all other times of the day Blood specimen (specimen) 01/23/2015 2:51 PM EST 01/23/2015 2:51 PM EST Sanju Marcos MD POINT OF CARE TEST O RDERABLES Performing Organization Address [facility] Phone Number [facility] * Antibody screen (01/23/2015 10:32 AM EST) Ab Screen Interp Negative [facility] Expires at 2359 on: [id number] [facility] Blood specimen (specimen) 01/23/2015 10:32 AM EST 01/23/2015 10:49 AM EST Narrative Resulting Agency Comment Spec In Lab Sanju Marcos MD BLOOD BANK LAB ORDER CEDRICK Performing Organization Address [facility] Phone Number [facility] * ABO/Rh Typing (01/23/2015 10:32 AM EST) [facility] ABORH Type A Pos [facility] Blood specimen (specimen) 01/23/2015 10:32 AM EST 01/23/2015 10:49 AM EST Narrative Resulting Agency Comment Spec In Lab Sanju Marcos MD BLOOD BANK LAB ORDER CEDRICK Performing Organization Address [facility] Phone Number [facility] * POCT Glucose (01/23/2015 10:25 AM EST) Glucose, POC 164 60 - 199 mg/dL [facility] Comment: Supplemental ranges: <140 mg/dL before meals <180 mg/dL all other times of the day Blood specimen (specimen) 01/23/2015 10:25 AM EST 01/23/2015 10:25 AM EST Sanju Marcos MD POINT OF CARE TEST O RDERABLES Performing Organization Address [facility] Phone Number [facility] * POCT Glucose (01/23/2015 7:45 AM EST) Glucose, POC 76 60 - 199 mg/dL [facility] Comment: Supplemental ranges: <140 mg/dL before meals <180 mg/dL all other times of the day Blood specimen (specimen) 01/23/2015 7:45 AM EST 01/23/2015 7:45 AM EST Sanju Marcos MD POINT OF CARE TEST O JAMILAH Performing Organization Address [facility] Phone Number [facility] * POCT Glucose (01/22/2015 7:27 PM EST) Glucose, POC 123 60 - 199 mg/dL [facility] Comment: Supplemental ranges: <140 mg/dL before meals <180 mg/dL all other times of the day Blood specimen (specimen) 01/22/2015 7:27 PM EST 01/22/2015 7:27 PM EST Sanju Marcos MD POINT OF CARE TEST O JAMILAH Performing Organization Address [facility] Phone Number [facility] * POCT Glucose (01/22/2015 1:50 PM EST) Glucose, POC 131 60 - 199 mg/dL [facility] Comment: Supplemental ranges: <140 mg/dL before meals <180 mg/dL all other times of the day Blood specimen (specimen) 01/22/2015 1:50 PM EST 01/22/2015 1:50 PM EST Sanju Marcos MD POINT OF CARE TEST O JAMILAH Performing Organization Address [facility] Phone Number [facility] * POCT Glucose (01/22/2015 9:50 AM EST) Glucose, POC 142 60 - 199 mg/dL [facility] Comment: Supplemental ranges: <140 mg/dL before meals <180 mg/dL all other times of the day Blood specimen (specimen) 01/22/2015 9:50 AM EST 01/22/2015 9:50 AM EST Sanju Marcos MD POINT OF CARE TEST O RDERABLES Performing Organization Address [facility] Co de Phone Number [facility] * POCT Glucose (01/22/2015 7:34 AM EST) Glucose, POC 99 60 - 199 mg/dL [facility] Comment: Supplemental ranges: <140 mg/dL before meals <180 mg/dL all other times of the day Blood specimen (specimen) 01/22/2015 7:34 AM EST 01/22/2015 7:34 AM EST Sanju Marcos MD POINT OF CARE TEST O RDERAKELIN Performing Organization Address [facility] Phone Number [facility] * POCT Glucose (01/21/2015 7:37 PM EST) Glucose, POC 149 60 - 199 mg/dL [facility] Comment: Supplemental ranges: <140 mg/dL before meals <180 mg/dL all other times of the day Blood specimen (specimen) 01/21/2015 7:37 PM EST 01/21/2015 7:37 PM EST Sanju Marcos MD POINT OF CARE TEST O RDERAKELIN Performing Organization Address [facility] de Phone Number [facility] * POCT Glucose (01/21/2015 2:28 PM EST) Glucose, POC 138 60 - 199 mg/dL [facility] Comment: Supplemental ranges: <140 mg/dL before meals <180 mg/dL all other times of the day Blood specimen (specimen) 01/21/2015 2:28 PM EST 01/21/2015 2:28 PM EST Sanju Marcos MD POINT OF CARE TEST O RDERAKELIN Performing Organization Address [facility] Co de Phone Number [facility] * US OB follow up evaluation (01/21/2015 10:18 AM EST) Anatomical Region Laterality Modality Pelvis, Abdomen Ultrasound 01/21/2015 10:1 8 AM EST Narrative 01/21/2015 11:12 AM EST OBSTETRICS REPORT ?(Signed Final 01/21/2015 11:11 ? am) Patient Info ID #: ? [id number] ?: ??[birth year] (29 yrs)(F) Name: ? MARTINEZ RICHARDSON ?Visit Date: 01/21/2015 09:46 am Performed By Performed By: ?Ladi Gallegos RDMS Attending: ? Herbert FOY, Vinicius Traylor Referred By: ? TIFFANIE GONZALEZ MD Service(s) Provided ??UOBFOL - Efw - Growth - Irene - [phone] ? [id number] Indications ??29yo at 30w5d admitted with VB [...] - 87 FL/AC: ? 21.4 ??% ? - Est. FW: ?1898 ?? gm ? 4 [...] 01/21/2015 11:11 am) Patient Info ID #: [id number] : [birth year] (29 yrs)(F) Name: MARTINEZ RICHARDSON Visit Date: 01/21/2015 09:46 am Performed By Performed By: Ladi Gallegos RDMS Attending: Vinicius Godinez MD Referred By: TIFFANIE GONZALEZ MD Service(s) Provided UOBFOL - Efw - Growth - Irene - [phone] [id number] Indications 29yo at 30w5d admitted with VB [...] images and agree with the above interpretation. Vinciius Godinez MD Electronically Signed Final Report 01/21/2015 11:11 am Sanju Marcos MD IMG OB ORDERABLES * POCT Glucose (01/21/2015 9:43 AM EST) Glucose, POC 154 60 - 199 mg/dL [facility] Comment: Supplemental ranges: <140 mg/dL before meals <180 mg/dL all other times of the day Blood specimen (specimen) 01/21/2015 9:43 AM EST 01/21/2015 9:43 AM EST Sanju Marcos MD POINT OF CARE TEST O RDERABLES Performing Organization Address [facility] Phone Number [facility] * POCT Glucose (01/21/2015 7:07 AM EST) Glucose, POC 108 60 - 199 mg/dL [facility] Comment: Supplemental ranges: <140 mg/dL before meals <180 mg/dL all other times of the day Blood specimen (specimen) 01/21/2015 7:07 AM EST 01/21/2015 7:07 AM EST Sanju Marcos MD POINT OF CARE TEST O RDERABLES Performing Organization Address [facility] Phone Number [facility] * Group B Streptococcus Screen (01/20/2015 8:27 PM EST) GBS Screen Neg [facility] Pooled specimen from vaginal introitus and rectal swab (specimen) 01/20/2015 8:27 PM EST 01/20/2015 8:57 PM EST Comment:Penicillin Allergy?- >Yes Narrative Resulting Agency Comment Spec In Lab Sanju Marcos MD MICROBIOLOGY - GENER AL ORDERABLES Performing Organization Address [facility] Co ar Phone Number [facility] * Group B Strep Culture Screen (01/20/2015 8:27 PM EST) Group B Streptococcus Culture ? Patient Name: RICHARDSON, MARTINEZ A ? Ordered By: SANJU MARCOS ? MR#: [id number] ?LOC: ??BP ? /Sex: ??1985 (29 years), ? Female ? PROCEDURE: Group B Streptococcus Culture ?SOURCE: Vag/Rectal ? COLLECTED: 01/20/2015 20:27 ?FREE TEXT SOURCE: Penicillin Allergy?->Yes ? STARTED: 01/20/2015 20:57 ? FINAL REPORT ? Final Report ? Verified: 015 11:57 ? No Group B Streptococci isolated ? PRELIMINARY REPORT ? Preliminary Report ? Verified: 015 12:16 ? Culture in progress ? [facility] Pooled specimen from vaginal introitus and rectal swab (specimen) 01/20/2015 8:27 PM EST 01/20/2015 8:57 PM EST Comment:PENICILLIN ALLERGY?- >YES Narrative Resulting Agency Comment Spec In Lab Sanju Marcos MD MICROBIOLOGY - GENER AL ORDERABLES [facility] * POCT Glucose (01/20/2015 8:12 PM EST) Glucose, POC 132 60 - 199 mg/dL [facility] Comment: Supplemental ranges: <140 mg/dL before meals <180 mg/dL all other times of the day Blood specimen (specimen) 01/20/2015 8:12 PM EST 01/20/2015 8:12 PM EST Sanju Marcos MD POINT OF CARE TEST O RDERABLES Performing Organization Address [facility] de Phone Number [facility] * Antibody screen (01/20/2015 6:02 PM EST) Ab Screen Interp Negative CERNER MILLENNIUM Expires at [id number] on: [id number] CERNER MILLENNIUM Blood specimen (specimen) 01/20/2015 6:02 PM EST 01/20/2015 6:02 PM EST Narrative Resulting Agency Comment Spec In Lab Sanju Marcos MD BLOOD BANK LAB ORDER CEDRICK Performing Organization Address [facility] Phone Number [facility] * ABO/Rh Typing (01/20/2015 6:02 PM EST) ABORH Type A Pos CERNER MILLENNIUM Blood specimen (specimen) 01/20/2015 6:02 PM EST 01/20/2015 6:02 PM EST Narrative Resulting Agency Comment Spec In Lab Sanju Marcos MD BLOOD BANK LAB ORDER CEDRICK Performing Organization Address [facility] de Phone Number CERNER JETENNIUM * (ABNORMAL) Differential, Automated (01/20/2015 5:45 PM EST) Neutrophil % 67.0 % CERNER MILLENNIUM Neutrophil Absolute 7.70(H) 1.50 - 6.30 x10(3)/mc L CERNER MILLENNIUM Lymph % 23.2 % CERNER MILLENNIUM Lymphocytes Abs 2.7 1.0 - 3.6 x10(3)/mc L CERNER MILLENNIUM Monocyte % 8.4 % CERNER MILLENNIUM Monocyte Abs 1.0 0.2 - 1.0 x10(3)/mc [...] of variation 13.8 10.9 - 14.4 % CERNER MILLENNIUM Mean Platelet Volume 9.7 9.0 - 12.0 fL SARA SHETH Blood specimen (specimen) 01/20/2015 5:45 PM EST 01/20/2015 5:53 PM EST Narrative Resulting Agency Comment Spec In Lab Sanju Marcos MD HEMATOLOGY ORDERABLE S SARA SHETH documented in this encounter Visit Diagnoses Not on filedocumented in this encounter Active and Recently Administered Medications Times are shown in EDT. Scheduled Medication Order 03/02/2015 03/03/2015 03/04/2015 docusate sodium (COLACE) capsule 100 mg 100 mg, Oral, 2 TIMES DAILY, First dose on Fri02/07/15 at 0930, Until Discontinued, Routine 1059 (Given - Provider: Griselda Ross, RN)2018 (Given - Provider: Judi Peguero RN) 0819 (Given - Provider: Griselda Ross RN)2031 (Given - Provider: Henny Arellano RN) 09 (Given - Provider: Mayte Ayala, ROSARIO) enoxaparin (LOVENOX) injection 40 mg (CANCELED) 40 mg, Subcutaneous, EVERY 24 HOURS SCHEDULED (Daily), First dose on Fri03/02/15 at 0900, Until Discontinued, Routine 1059 (Given - Provider: Griselda Ross, ROSARIO) 0819 (Given - Provider: Griselda Ross, ROSARIO) 0900 (Due) ketorolac (TORADOL) injection 15 mg (COMPLETED)(Linked Group 1) 15 mg, Intravenous, EVERY 8 HOURS, 3 doses, First dose on Fri03/01/15 at 1715, Last dose on Fri03/02/15 at 0915, - Mild to moderate pain (pain scale 1-6). - Stop after 24 hours then start ibuprofen orally., Routine 0704 (Given - Provider: Rocio Goins RN)0915 (Hold - Provider: Griselda Ross, RN - Reason: See comment - Comment: [...] from all sources in 24 hours., Routine 031 (Given - Provider: Kinza Farley RN)105 (Given - Provider: Griselda Ross RN)180 (Given - Provider: Griselda Ross RN) 0023 (Given - Provider: Judi Peguero RN)0744 (Given - Provider: Griselda Ross RN)1409 (Given - Provider: Griselda Ross RN) 0128 (See Alternative - Provider: Henny Arellano RN)0654 (See Alternative - Provider: Henny Arellano RN) acetaminophen (TYLENOL) tablet 650 mg (CANCELED)(Linked Group 2) 650 mg, Oral, EVERY 4 HOURS PRN, Starting on Fri03/01/15 at 1648, Until 03/04/15 at 1321, Pain, - Mild pain (pain scale 1-3) - Maximum dose of acetaminophen is 4000 mg from all sources in 24 hours., Routine 031 (See Alternative - Provider: Kinza Farley RN)1059 (See Alternative - Provider: Griselda Ross RN)180 (See Alternative - Provider: Griselda Ross RN) 0023 (See Alternative - Provider: Judi Peguero RN)0744 (See Alternative - Provider: Griselda Ross RN)1409 (See Alternative - Provider: Griselda Ross RN) 0128 (Given - Provider: Henny Arellano RN)0654 (Given - Provider: Henny Arellano RN) ibuprofen (ADVIL;MOTRIN) tablet 600 mg(Linked Group 1) 600 mg, Oral, EVERY 6 HOURS PRN, Starting on Camilla 03/02/15 at 1715, Until 03/04/15 at 1321, Pain, - Mild to moderate pain (pain scale 1-6). - Begin after ketorolac discontinued., Routine 2020 (Given - Provider: Judi Peguero RN) 0306 (Given - Provider: Radu García)1149 (Given - Provider: Griselda Ross RN)203 (Given - Provider: Henny Arellano RN) 0931 (Given - Provider: Mayte Ayala RN) oxyCODONE (ROXICODONE) immediate release tablet 5-10 mg 5-10 mg, Oral, EVERY 3 HOURS PRN, Starting on 03/01/15 at 1648, [...] Arellano, ROSARIO) 0126 (Given - Provider: Henny Arellano, ROSARIO)0655 (Given - Provider: Henny Arellano RN) Linked Groups Order Group 1: ketorolac (TORADOL) injection 15 mg (COMPLETED)Jump to med 15 mg, Intravenous, EVERY 8 HOURS, 3 doses, First dose on 03/01/15 at 1715, Last dose on Camilla 03/02/15 [...] Routine documented in this encounter Care Teams Chairman And Ceo Relationship Specialty Start Date End Date Chantel Guevara MD [address] [facility] [address] [place] [address] PCP - General 10/16/10 12/11/18 documented as of this encounter
--- OUTSIDE RECORDS SUMMARY | 2024-07-01 22:40 | XMS_ITS | Encounter Summary ---
Author Organization [facility] [place] [address] Care Team Providers Care Computer Field Technician Name Role Phone Keyona Guevara MD Primary Care Provider [phone] Encounter Details Date Type Department Care Team (Late st Contact Info) Description 09/02/2010 [place] [id number] Sushila Godinez MD [facility] [address] OBSTETRICS [place] [address] Social History Tobacco Use Types Packs/Day Years Used Date Smoking Tobacco: Never Assessed Sex and Gender Information Value Date Recorded Sex Assigned at Not on file Gender Identity Not on file Sexual Orientation Not on file documented as of this encounter Plan of Treatment Not on file documented as of this encounter Procedures Procedure Name Priority Date/Time Associated Diagnosis Comments GROUP B STREP CULTURE SCREEN Routine 09/02/2010 5:00 PM EDT POCT GLUCOSE Routine 09/02/2010 1:51 PM EDT POCT GLUCOSE Routine 09/02/2010 9:17 AM EDT POCT GLUCOSE Routine 09/02/2010 7:21 AM EDT documented in this encounter Results * STREP B SCREEN, VAGINAL / RECTAL (09/02/2010 5:00 PM EDT) Group B Streptococcus Culture ? Patient Name: MARTINEZ CAMAHCO ? Ordered By: DANIE CERVANTES ? MR#: [id number] ?LOC: ??BP ? /Sex: ??1985 (24 years), ? Female ? PROCEDURE: Group B Streptococcus Culture ?SOURCE: Vag/Rectal ? COLLECTED: 09/02/2010 17:00 ? STARTED: 09/02/2010 18:03 ? FINAL REPORT ? Final Report ? Verified: 010 08:03 ? Beta Hemolytic Streptococci, Group B isolated ? PRELIMINARY REPORT ? Preliminary Report ? Verified: 010 07:05 ? Culture in progress ? [facility] Pooled specimen from vaginal introitus and rectal swab (specimen) 09/02/2010 5:00 PM EDT 09/02/2010 5:50 PM EDT Danie Toussaint MD MICROBIOLOGY - GENE RAL ORDERABLES [facility] * POCT GLUCOMETER ORDER (LAB USE ONLY) (09/02/2010 1:51 PM EDT) Glucose, POC 73 70 - 110 mg/dL [facility] Comment: Supplemental ranges: <110 mg/dL before meals <200 mg/dL all other times of the day Blood specimen (specimen) 09/02/2010 1:51 PM EDT 09/02/2010 1:51 PM EDT Sushila Godinez MD POINT OF CARE TEST ORDERABLES Performing Organization Address City/[facility] Co de Phone Number [facility] * (ABNORMAL) POCT GLUCOMETER ORDER (LAB USE ONLY) (09/02/2010 9:17 AM EDT) Glucose, POC 174(H) 70 - 110 mg/dL [facility] Comment: Supplemental ranges: <110 mg/dL before meals <200 mg/dL all other times of the day Blood specimen (specimen) 09/02/2010 9:17 AM EDT 09/02/2010 9:17 AM EDT Sushila Godinez MD POINT OF CARE TEST ORDERABLES Performing Organization Address [facility] Co de Phone Number [facility] * POCT GLUCOMETER ORDER (LAB USE ONLY) (09/02/2010 7:21 AM EDT) Glucose, POC 100 70 - 110 mg/dL [facility] Comment: Supplemental ranges: <110 mg/dL before meals <200 mg/dL all other times of the day Blood specimen (specimen) 09/02/2010 7:21 AM EDT 09/02/2010 7:21 AM EDT Sushila Godinez MD POINT OF CARE TEST ORDERABLES Performing Organization Address City/[facility] Co de Phone Number SARA SHETH documented in this encounter Visit Diagnoses Not on filedocumented in this encounter Care Teams Computer Field Technician Relationship Specialty Start Date End Date Keyona Guevara MD [address] [place] [address] PCP - General 10/16/10 12/11/18 documented as of this encounter
--- OUTSIDE RECORDS SUMMARY | 2024-07-01 22:40 | XMS_ITS | Encounter Summary ---
Author Organization [facility] [place] [address] Care Team Providers Care Rice Drier Name Role Phone Susie Khan MARISSA Primary Care Provider [phone] Encounter Details Date Type Department Care Team (Late st Contact Info) Description 03/20/2008 Orders Only Obstetrics [place] [address] Yesenia Donahue MD [facility] [address] OBSTETRICS & [place] [address] Social History Tobacco Use Types Packs/Day Years Used Date Smoking Tobacco: Never Assessed Sex and Gender Information Value Date Recorded Sex Assigned at Not on file Gender Identity Not on file Sexual Orientation Not on file documented as of this encounter Plan of Treatment Not on file documented as of this encounter Procedures Procedure Name Priority Date/Time Associated Diagnosis Comments SURGICAL PATHOLOGY REPORT Routine 03/21/2008 1:32 PM EDT documented in this encounter Results * Surgical Pathology Report (03/21/2008 1:32 PM EDT) Surgical Pathology Report [id number] ? Location: BP; BP02; A The signing pathologist has (i) examined the relevant preparation(s) for the specimen(s) and (ii) rendered or confirmed the diagnosis(es). . ?Pathology Surgical Pathology Final Report Clinical Information Specimen Submitted: A - Placenta Clinical History: at 41+2, 10 liter for postdate, stat for NRFHT Gross Description Labeled/Fixative: ? Labeled with the patient's name, fresh. Qty/Size/Weight: ?Two, 19.0 x 15.0 x 3.0 cm, 404 g. Tissue Description: ?? Jarquin discoid placenta with attached and detached ?umbilical cord. ?? Membranes: ? Marginal insertion. ??Braun, semitransparent. ?? Cord: ?38.0 x 1.0 cm; three vessels; eccentric insertion. ?Normal spiraling with varices noted. ?? Surface: ? Transparent, pretty-blue, with normal vasculature. ?Subchorionic fibrin depositions are noted. ?? Maternal Surface: ??Intact. ??Scattered firm fibrin deposition is noted on ?the maternal surface. ?? Parenchyma: ?The specimen is serially sectioned at 0.5-cm to ?1.0-cm intervals. ??Sections show a braun area, 0.5 cm in diameter, possibly representing -maternal hemorrhage. ??The remaining parenchyma is soft, spongy, dark red. Sections/Processing : ??Sections are submitted as follows: ??(1) membranes and ?proximal and distal cord; (2) surface; (3) ?maternal surface including braun area. ??(R3) ??aje/HC Microscopic Description Slides reviewed, microscopic description not recorded. Diagnosis Third trimester placenta, cord and membranes: surface with focal squamous metaplasia. Evidence of -maternal hemorrhage (intervillous thrombus). Negative for chorioamnionitis or funisitis. CR-0 03/28/08 KO 03/28/08 Verified by: ? Yvonne Whitlock MD ?Pathologist ?(Electronic Signature) The attending pathologist whose signature appears on this report has reviewed all diagnostic slides and has edited the gross and/or microscopic portion of the report in rendering the final pathologic diagnosis. [facility] 03/21/2008 1:32 PM EDT Yesenia Donahue MD PATHOLOGY/CYTOLOGY O RDERABLES Performing Organization Address City/State/[facility] Co de Phone Number [facility] documented in this encounter Visit Diagnoses Not on filedocumented in this encounter Care Teams Rice Drier Relationship Specialty Start Date End Date Susie Khan, INSIDE SALES COORDINATOR [address] [place] [address] PCP - General Family Medicine 12/09/19 documented as of this encounter
--- OUTSIDE RECORDS SUMMARY | 2024-07-01 22:40 | XMS_ITS | Encounter Summary ---
Author [place] [address] Care Team Providers Care Badger Distiller Operator Name Role Phone Keyona Guevara MD Primary Care Provider [phone] Reason for Visit * Reason Comments Routine Visit Encounter Details Date Type Department Care Team (Latest Contact Info) Description 11/28/2014 10:00 AM EST Routine Obstetrics [place] [address] Lilli Steiner MD [facility] [address] OBSTETRICS [place] [address] GA: 23w1d Discharge Disposition: Home Social History Tobacco Use [...] Sign Reading Time Taken Comments Blood Pressure 112/68 11/28/2014 10:01 AM EST Pulse - - Temperature - - Respiratory Rate - - Oxygen Saturation - - Inhaled Oxygen Concentration - - Weight 89.8 kg (198 lb) 11/28/2014 10:01 AM EST Height - - Body Mass Index 31.08 10/31/2014 7:27 PM EST documented in this encounter Progress Notes * Lilli Steiner MD - 11/28/2014 10:16 AM EST Good movement. No contractions/ leaking fluid / bleeding / pain. No headache, vision changes, RUQ pain. Excellent glycemic control; all values within target range. Likely to have repeat and bilateral tubal ligation. Private insurance. RTC 2 wks for echo; 5 weeks for growth ultrasound and PNV. * Sherri Dickinson LPN - 11/28/2014 10:01 AM EST The OB identification card, Glucose screening directions (if applicable) along with the Guide to [place] was given to the patient. documented in this encounter Plan of Treatment Not on file documented as of this encounter Results * US OB follow up evaluation (01/02/2015 1:47 PM EST) Anatomical Region Laterality Modality Pelvis, Abdomen Ultrasound 01/02/2015 1:47 PM EST Narrative 01/02/2015 2:39 PM EST OBSTETRICS REPORT ?(Signed Final 01/02/2015 02:39 ? pm) Patient Info ID #: ? [id number] ?: ??[birth year] (29 yrs)(F) Name: ? MARTINEZ CAMACHO ?Visit Date: 01/02/2015 01:43 pm Performed By Performed By: ?Mary Groves RDMS Attending: ? Reena FOY, Karolyn Botello Referred By: ? E SUHAIL STEINER MD Service(s) Provided ??UOBFOL - Efw - Growth - Jarquin - [id number] ? [id number] Indications ??growth; diabetes;MFM TO READ Evaluation Num Of Fetuses: ? 1 Heart ? 157 Rate(bpm): Cardiac Activity: ?? Observed, normal rhythm Presentation: ? Transverse, head to maternal right Placenta: ? Anterior P. Cord Insertion: ??Within Normal Limits Amniotic Fluid BRIDGET FV: ?Normal BRIDGET Sum: ? 17.95 ?? cm ? Larg Pckt: ?6.37 ??cm RUQ: ?? 5.74 ?cm ?LUQ: ?? 6.37 ?? cm RLQ: ?? 0.28 ?cm ?LLQ: ?? 5.56 ?? cm -------- Biometry -------- BPD: ?71.9 ??mm ?G. Age: ?? 28w 6d ?71 ??% OFD: ?95.4 ??mm HC: ?265.8 ??mm ?G. Age: ?? 29w 0d ?54 ??% AC: ?246.9 ??mm ?G. Age: ?? 28w 6d ?74 ??% FL: ? 56.4 ??mm ?G. Age: ?? 29w 5d ?83 ??% HUM: ?50.6 ??mm ?G. Age: ?? 29w 5d ?82 ??% CI: ?75.4 ??% ? 70 - 86 FL/HC: ? 21.2 ??% ? 18.8 - 20.6 HC/AC: ? 1.08 ?1.05 - 1.21 FL/BPD: ?78.4 ??% ? 71 - 87 FL/AC: ? 22.8 ??% ? 20 - 24 Est. FW: ?1345 ?? gm ?? 2 lb 15 oz ? 92 ??% Gestational Age Clinical ERIC: ??27w 6d ?ERIC: ?? 03/28/15 U/S Today: ? 29w 1d ?ERIC: ?? 03/19/15 Best: ?27w 6d ?? Det. By: ??Clinical ERIC ? ERIC: ?? 03/28/15 ------- Anatomy ------- Cranium: ?Limited Views Cavum: ?Limited Views Ventricles: ? Limited Views Choroid Plexus: ? Limited Views Cerebellum: ? Limited Views Posterior Fossa: ?Visualized Nuchal Fold: ?Not evaluated at this gestational age Face: ? Limited views Heart: ?4-chamber view appears normal RVOT: ? Visualized LVOT: ? Visualized Diaphragm: ?Visualized Stomach: ?Visualized Abdomen: ?Within Normal Limits Abdominal Wall: ? Cord Insertion - WNL Cord Vessels: ? 3-vessels- WNL Kidneys: ?Visualized Bladder: ?Visualized Spine: ?Limited views Upper ? Limited views Extremities: Lower ? Limited views Extremities: Doppler - Uterine Artery Right S/D Ratio: ? RI: ?PI: ?%Tile Left S/D Ratio: ?RI: ?PI: ?%Tile Cervix Uterus Adnexa Left Ovary Not visualized Right Ovary Not visualized Impression 3rd Trimester Summary Single intrauterine with a gestational age of 27w 6d based on ERIC Composite age based on the current ultrasound alone is 29w 1d. Estimated weight corresponds to the 92th percentile for 27w 6d. Current growth parameters are consistent indicating normal growth. Amniotic fluid volume is Normal, BRIDGET = 17.95 cm, MVP = 6.37 cm Anatomical survey is limited due to the late gestational age. I ??viewed the images and agree with the above interpretation. ? Karolyn Valles MD Electronically Signed Final Report ?? 01/02/2015 02:39 pm Procedure Note Karolyn Valles MD - 01/02/2015 OBSTETRICS REPORT (Signed Final 01/02/2015 02:39 pm) Patient Info ID #: [id number] : [birth year] (29 yrs)(F) Name: MARTINEZ CAMACHO Visit Date: 01/02/2015 01:43 pm Performed By Performed By: Mary Groves RDMS Attending: Karolyn Valles MD Referred By: Lilli STEINER MD Service(s) Provided UOBFOL - Efw - Growth - Jarquin - [id number] Indications growth; diabetes;MFM TO READ Evaluation Num Of Fetuses: 1 Heart 157 Rate(bpm): Cardiac Activity: Observed, normal rhythm Presentation: Transverse, head to maternal right Placenta: Anterior P. Cord Insertion: Within Normal Limits Amniotic Fluid BRIDGET FV: Normal BRIDGET Sum: 17.95 cm Larg Pckt: 6.37 cm RUQ: 5.74 cm LUQ: 6.37 cm RLQ: 0.28 cm LLQ: 5.56 cm -------- Biometry -------- BPD: 71.9 mm G. Age: 28w 6d 71 % OFD: 95.4 mm HC: 265.8 mm G. Age: 29w 0d 54 % AC: 246.9 mm G. Age: 28w 6d 74 % FL: 56.4 mm G. Age: 29w 5d 83 % HUM: 50.6 mm G. Age: 29w 5d 82 % CI: 75.4 % 70 - 86 FL/HC: 21.2 % 18.8 - 20.6 HC/AC: 1.08 1.05 - 1.21 FL/BPD: 78.4 % 71 - 87 FL/AC: 22.8 % 20 - 24 Est. FW: 1345 gm 2 lb 15 oz 92 % Gestational Age Clinical ERIC: 27w 6d ERIC: 03/28/15 U/S Today: 29w 1d ERIC: 03/19/15 Best: 27w 6d Det. By: Clinical ERIC ERIC: 03/28/15 ------- Anatomy ------- Cranium: Limited Views Cavum: Limited Views Ventricles: Limited Views Choroid Plexus: Limited Views Cerebellum: Limited Views Posterior Fossa: Visualized Nuchal Fold: Not evaluated at this gestational age Face: Limited views Heart: 4-chamber view appears normal RVOT: Visualized LVOT: Visualized Diaphragm: Visualized Stomach: Visualized Abdomen: Within Normal Limits Abdominal Wall: Cord Insertion - WNL Cord Vessels: 3-vessels- WNL Kidneys: Visualized Bladder: Visualized Spine: Limited views Upper Limited views Extremities: Lower Limited views Extremities: Doppler - Uterine Artery Right S/D Ratio: RI: PI: %Tile Left S/D Ratio: RI: PI: %Tile Cervix Uterus Adnexa Left Ovary Not visualized Right Ovary Not visualized Impression 3rd Trimester Summary Single intrauterine with a gestational age of 27w 6d based on ERIC Composite age based on the current ultrasound alone is 29w 1d. Estimated weight corresponds to the 92th percentile for 27w 6d. Current growth parameters are consistent indicating normal growth. Amniotic fluid volume is Normal, BRIDGET = 17.95 cm, MVP = 6.37 cm Anatomical survey is limited due to the late gestational age. I viewed the images and agree with the above interpretation. Karolyn Valles MD Electronically Signed Final Report 01/02/2015 02:39 pm E Suhail Steiner MD IMG US OB ORDERAB LES * Echocardiogram (12/14/2014 2:00 PM EST) Anatomical Region Laterality Modality Other 12/14/2014 Narrative 12/14/2014 4:41 PM EST Procedure: ? Pediatric Echocardiogram Patient: ? DEBRA Melendez ?(Age): 1985(28) Med Rec#: ?[id number] ? Sex: ?F ? Site Loc: ?[facility] [place] ? Ht / Wt: ??(cm)/(kg) ? Pt. Loc: ? Echo Lab ? BSA: ? Study Date: ?12/14/2014 ? Pt. Type: Outpatient Study Quality: ?Tape: ? Referring: Memo Steiner Director Cardiovascular: Gio Dudley Director Cardiovascular: Erlin Root [facility] Diagnosis:CPT Code(s): ?? Echo Full (44251), ?? Doppler Full (43037), ??Color Doppler (49229), Indication(s): ??Maternal diabetes Rhythm: SUMMARY: 1. A echocardiogram was performed at 25.3 weeks gestation (ERIC: 03/26/2015) due to maternal diabetes. ??Good quality images were obtained. 2. No cardiac structural abnormalities are identified. ??Chamber sizes, ventricular function, arterial and venous connections are all normal. The Doppler exam is normal. ??No arrhythmias are noted during the exam. There is no evidence of hydrops. ?? 3. The limitations of echocardiography include the inability to diagnose patent ductus arteriosus, some atrial and ventricular septal defects, minor valve abnormalities and coarctation. ?? 4. No specific or cardiac follow-up is required on the basis of this study. FINDINGS: Atria And Veins ?At least one pulmonary vein from each side enters the left atrium. ?No pulmonary venous anomalies are detected. Atrioventricular Valves ?The tricuspid valve appears normal. ?The annulus measures approximately 7.5 mm. (Z-Score: -0.25). ?No tricuspid valve structural abnormality is identified. ?The mitral valve structure appears normal. ?The annulus measures approximately 7.5 mm. (Z-Score: 0.01). ?No mitral valve structural abnormality is identified. Ventricles ?The right ventricle is normal sized. ?Right ventricular systolic function is normal. ?The left ventricle is normal sized. ?Left ventricular systolic function is normal. Ventricular Septum ?The interventricular septum appears to be intact. Semilunar Valves ?No pulmonary valve structural abnormalities seen. ?The pulmonary annulus size appears normal sized. ? and measures 5.5 mm. (Z-Score: 1.18). ?No aortic valve structural abnormalities seen. ?The aortic annulus size appears normal. ? and measures approximately 4.8 mm. (Z-Score: 1.56). Great Vessels ?The great arteries appear normally related. ?The main pulmonary artery appears normal sized. ?The right pulmonary artery appears normal sized. ?The left pulmonary artery appears normal sized. ?The aortic arch appears to be intact. ?The ascending aorta is normal sized. ? measuring 4.8 mm. (Z-Score: 0.55). ?The aortic isthmus is normal sized. ?measuring 3 mm. (Z-Score: 0.00). ?The descending aorta is normal sized. Effusion ?There is no evidence of a pericardial effusion. ?No evidence of hydrops. All Z scores are estimated This report has been electronically signed by: Justine Arce MD ? 12/14/2014 16:40:22 Images reviewed and interpretation verified [facility] Cardiac Ultrasound [facility] Procedure Note Justine Arce MD - 12/14/2014 Procedure: Pediatric Echocardiogram Patient: DEBRA Melendez (Age): 1985(28) Med Rec#: [id number] Sex: F Site Loc: [facility] [place] Ht / Wt: (cm)/(kg) Pt. Loc: Echo Lab BSA: Study Date: 12/14/2014 Pt. Type: Outpatient Study Quality: Tape: Referring: Memo Steiner Director Cardiovascular: Gio Dudley Director Cardiovascular: Erlin Root [facility] Diagnosis:CPT Code(s): Echo Full (42345), Doppler Full (86806), Color Doppler (49409), Indication(s): Maternal diabetes Rhythm: SUMMARY: 1. A echocardiogram was performed at 25.3 weeks gestation (ERIC: 03/26/2015) due to maternal diabetes. Good quality images were obtained. 2. No cardiac structural abnormalities are identified. Chamber sizes, ventricular function, arterial and venous connections are all normal. The Doppler exam is normal. No arrhythmias are noted during the exam. There is no evidence of hydrops. 3. The limitations of echocardiography include the inability to diagnose patent ductus arteriosus, some atrial and ventricular septal defects, minor valve abnormalities and coarctation. 4. No specific or cardiac follow-up is required on the basis of this study. FINDINGS: Atria And Veins At least one pulmonary vein from each side enters the left atrium. No pulmonary venous anomalies are detected. Atrioventricular Valves The tricuspid valve appears normal. The annulus measures approximately 7.5 mm. (Z-Score: -0.25). No tricuspid valve structural abnormality is identified. The mitral valve structure appears normal. The annulus measures approximately 7.5 mm. (Z-Score: 0.01). No mitral valve structural abnormality is identified. Ventricles The right ventricle is normal sized. Right ventricular systolic function is normal. The left ventricle is normal sized. Left ventricular systolic function is normal. Ventricular Septum The interventricular septum appears to be intact. Semilunar Valves No pulmonary valve structural abnormalities seen. The pulmonary annulus size appears normal sized. and measures 5.5 mm. (Z-Score: 1.18). No aortic valve structural abnormalities seen. The aortic annulus size appears normal. and measures approximately 4.8 mm. (Z-Score: 1.56). Great Vessels The great arteries appear normally related. The main pulmonary artery appears normal sized. The right pulmonary artery appears normal sized. The left pulmonary artery appears normal sized. The aortic arch appears to be intact. The ascending aorta is normal sized. measuring 4.8 mm. (Z-Score: 0.55). The aortic isthmus is normal sized. measuring 3 mm. (Z-Score: 0.00). The descending aorta is normal sized. Effusion There is no evidence of a pericardial effusion. No evidence of hydrops. All Z scores are estimated This report has been electronically signed by: Justine Arce MD 12/14/2014 16:40:22 Images reviewed and interpretation verified [facility]iac Ultrasound [facility] E Suhail Steiner MD ECHO ORDERABLES documented in this encounter Visit Diagnoses Diagnosis Supervision of high risk in second trimester Unspecified high-risk Gestational diabetes Abnormal maternal glucose tolerance, complicating , childbirth, or the puerperium, unspecified as to episode of care Supervision of high risk in second trimester Unspecified high-risk Gestational diabetes Abnormal maternal glucose tolerance, complicating , childbirth, or the puerperium, unspecified as to episode of care documented in this encounter Care Teams Badger Distiller Operator Relationship Specialty Start Date End Date Keyona Guevara MD [facility] [address] [facility] [address] [place] [address] PCP - General 10/16/10 12/11/18 documented as of this encounter
--- OUTSIDE RECORDS SUMMARY | 2024-07-01 22:40 | XMS_ITS | Encounter Summary ---
Author Organization [facility] [place] [address] Care Team Providers Care Hand Inserter Operator Name Role Phone Unavailable Primary Care Provider Unavailabl e Encounter Details Date Type Department Care Team (Late st Contact Info) Description 09/28/2010 11:30 AM EDT Office Visit Obstetrics [place] [id number] Karolyn Valles MD [facility] [address] OBSTETRICS [place] [address] Social History Tobacco Use Types Packs/Day Years [...]
--- OUTSIDE RECORDS SUMMARY | 2024-07-01 22:40 | XMS_ITS | Encounter Summary ---
[place] [address] Care Team Providers Care Dog Breeder Name Role Phone Unavailable Primary Care Provider Unavailabl e Encounter Details Date Type Department Care Team (Late st Contact Info) Description 10/02/2010 11:00 AM EST Procedure visit Obstetrics [place] [id number] Zia Becker, RN Social History Tobacco Use Types Packs/Day [...]
--- OUTSIDE RECORDS SUMMARY | 2024-07-01 22:40 | XMS_ITS | Encounter Summary ---
Author Organization [facility] [place] [address] Care Team Providers Care Vat House Laborer Name Role Phone Keyona Guevara MD Primary Care Provider [phone] Encounter Details Date Type Department Care Team (Late st Contact Info) Description 01/20/2015 11:59 PM EST Anesthesia Event [facility] [place] [address] Cisco Piper MD [facility] [place] [address] Anesthesia Record Procedure Summary Procedure Name Responsible Anesthesiologist Anesthesia Start Time Anesthesia Stop Time Labor Analgesia (proc) Events No events on file. Meds * Agents No agents on file. * Blood No blood administrations on file. Lines, Drains, and Airways No LDAs on file. documented in this encounter Social History Tobacco Use Types Packs/Day Years Used Date Smoking Tobacco: Never Smokeless Tobacco: Never Alcohol Use Standard Drinks/Week Comments Yes 7 (1 standard drink = 0.6 oz pur e alcohol) not while Comments Yes Sex and Gender Information Value Date Recorded Sex Assigned at Not on file Gender Identity Not on file Sexual Orientation Not on file documented as of this encounter OR Notes * Anesthesia Preprocedure Evaluation - Cisco Piper MD - 01/20/2015 4:57 PM EST Pre-Anesthesia Evaluation for: Spring Nora Camacho a 29 y.o. female. Patient Active Problem List Diagnosis ??? Supervision of high risk in [...] have been reviewed. Physical Exam: Filed Vitals: 01/20/15 1519 BP: 121/80 Pulse: 99 Temp: 36.8 ??C (98.2 ??F) Body mass index is 33.51 kg/(m^2). Height: 170.2 cm (5' 7) Weight - Scale: 97.07 kg (214 lb) Airway Assessment: Mallampati: II TM distance: >3 FB Neck ROM: full Cardiovascular Assessment: Pulmonary Assessment: (-) wheezes Dental Assessment: - normal exam Misc Assessment: IV access: Peripheral line Anesthesia Plan: ASA 2 spinal, 29 y.o. woman with the below listed medical history admitted for vaginal bleeding. Eventual plan isfor scheduled C/S, though this depends on result of current admit. Previous Anesthesia: 2 previous C/S, one with epidural and one with spinal. No events. PMH notable for: #GDM on insulin She does not have any chronic back pain, no extremity paresthesias, no previous back surgeries or injections, no scoliosis. ROS otherwise negative for cardiac, pulmonary, renal, hepatic, thyroid, diabetic, nor bleeding issues. Allergies: -- Penicillins -- CIS - Mouth swelling, difficulty breathing Labs: CBC: pending T+S: pending Previous Cardiac Workup: none Weight: Estimated body mass index is 33.51 kg/(m^2) as calculated from the following: Height as of this encounter: 170.2 cm (5' 7). Weight as of this encounter: 97.07 kg (214 lb). The patient was consented for spinal anesthesia, epidural anesthesia, and general anesthesia for after the risks and benefits of anesthesia were discussed, and all questions answered. Consent paperwork was placed in the patient's chart. Region - High-Risk Informed Consent: Misc. Assessment: documented in this encounter Plan of Treatment Not on file documented as of this encounter Visit Diagnoses Not on filedocumented in this encounter Care Teams Vat House Laborer Relationship Specialty Start Date End Date Keyona Guevara MD [facility] [address] [facility] [address] [place] [address] PCP - General 10/16/10 12/11/18 documented as of this encounter
--- OUTSIDE RECORDS SUMMARY | 2024-07-01 22:40 | XMS_ITS | Encounter Summary ---
[place] [address] Care Team Providers Care Room Service Manager Name Role Phone Keyona Guevara MD Primary Care Provider Encounter Details Date Type Department Care Team (Late st Contact Info) Description 10/06/2014 Telephone Obstetrics [place] [address] Yoseph Kim RN Social History Tobacco Use Types [...] as of this encounter Miscellaneous Notes * Addendum Note - Yoseph Kim RN - 10/06/2014 2:57 PM ESTAddended by: YOSEPH KIM on: 10/06/2014 02:57 PM Modules accepted: Orders * Telephone Encounter - Yoseph Kim RN - 10/06/2014 2:54 PM EST I have spoken with Martinez. She will come to [facility] on 10/17 for insulin teaching. In the meantime, she has questions re: her ultrasound scheduled for 10/31. It is not reflected on [facility]. I have connectedher with scheduling to arrange these appointments, as well as entered a morphology ultrasound orderper protocol. * Telephone Encounter - Yoseph Kim RN - 10/06/2014 2:30 PM EST I have returned Martinez's email. She has persistantly elevated blood sugars. 09/27 96 114 108 122 140 169 09/28 108 120 113 140 131 156 09/29 104 119 133 157 120 166 09/30 99 121 144 158 133 161 10/01 99 149 140 137 149 10/02 97 141 136 149 130 150 10/03 99 I have reviewed these blood sugars with Dr. Gan, who believes that Martinez should start on split dose insulin for her blood sugar elevations. Per her weight, the dosing would be as follows: AM: 26u NPH 13u Novolog PM: 9u NPH 9u Novolog I will call her and ask her to come in for insulin teaching. I will review with an MD at that time the dose that Martinez should be prescribed. documented in this encounter Plan of Treatment Not on file documented as of this encounter Results * US OB Targeted Morphology (10/31/2014 2:03 PM EST) Anatomical Region Laterality Modality Pelvis, Abdomen Ultrasound 10/31/2014 2:03 PM EST Narrative 10/31/2014 6:51 PM EST OBSTETRICS REPORT ?(Signed Final 10/31/2014 06:50 ? pm) Patient Info ID #: ? [id number] ?: ??[birth year] (28 yrs)(F) Name: ? MARTINEZ CAMACHO ?Visit Date: 10/31/2014 01:56 pm Performed By Performed By: ?Breann Graves RDMS Attending: ? Reena FOY, Karolyn Botello Referred By: ? E SUHAIL STEINER MD Service(s) Provided ??[facility] - Targeted Morphology - Genetics - ? [id number] ??[id number] Indications ??morphology, GDM A2;[facility] TO READ Evaluation Num Of Fetuses: ? 1 Preg. Location: ? Uterus Heart ? 157 Rate(bpm): Cardiac Activity: ?? Observed, normal rhythm Presentation: ? Cephalic Placenta: ? Anterior P. Cord Insertion: ??Within Normal Limits Amniotic Fluid BRIDGET FV: ?Normal -------- Biometry -------- BPD: ?43.1 ??mm ?G. Age: ?? 19w 0d OFD: ?55.9 ??mm HC: ?162.3 ??mm ?G. Age: ?? 19w 0d AC: ?138.6 ??mm ?G. Age: ?? 19w 2d FL: ? 31.2 ??mm ?G. Age: ?? 19w 5d HUM: ?31.0 ??mm ?G. Age: ?? 20w 2d CER: ?19.0 ??mm ?G. Age: ?? 18w 4d NFT: ?3.36 ??mm NB: ? 6.38 ??mm LV: ? 7.86 ??mm CM: ? 4.66 ??mm CI: ?77.1 ??% ? 70 - 86 FL/HC: ? 19.2 ??% ? 16.1 - 18.3 HC/AC: ? 1.17 ?1.09 - 1.39 FL/BPD: ?72.4 ??% FL/AC: ? 22.5 ??% ? 20 - 24 Est. FW: ? 291 ?? gm ?? 0 lb 10 oz Gestational Age Clinical ERIC: ??18w 6d ?ERIC: ?? 03/28/15 U/S Today: ? 19w 2d ?ERIC: ?? 03/25/15 Best: ?18w 6d ?? Det. By: ??Clinical ERIC ? ERIC: ?? 03/28/15 Targeted Anatomy Central Nervous System Calvarium: ?Within Normal Limits Intracranial: ? Within Normal Limits Lat. Ventricles: ?Within Normal Limits Cerebellum: ? Within Normal Limits Choroid Plexus: ? Within Normal Limits Cisterna Magna: ? Within Normal Limits Spine Cervical: ? Visualized Thoracic: ? Visualized Lumbar: ? Visualized Sacral: ? Visualized Head/Neck Face: ? Within Normal Limits Nuchal Fold: ?Within Normal Limits Thorax Four Chamber: ? Within Normal Limits Cardiac Motion: ? Normal Rhythm R Outflow Tract: ?Visualized L Outflow Tract: ?Visualized Cardiac Millstone: ? Visualized Diaphragm: ?Visualized Abdomen Ventral Wall: ? Visualized Stomach: ?Visualized Lt Kidney: ?Visualized Rt Kidney: ?Visualized Bladder: ?Visualized Extremities Lt Humerus: ? Within Nomal Limits Rt Humerus: ? Within Normal Limits Lt Forearm: ? Within Normal Limits Rt Forearm: ? Within Normal Limits Lt Hand: ?Within Normal Limits Rt Hand: ?Within Normal Limits Lt Femur: ? Within Normal Limits Rt Femur: ? Within Normal Limits Lt Lower Leg: ? Within Normal Limits Rt Lower Leg: ? Within Normal Limits Lt Foot: ?Visualized Rt Foot: ?Visualized Other Umbilical Cord: ? 3 vessel cord Cord Insertion: ? WIthin Normal Limits Comment: ? Nasal Bone: Visualized Doppler - Uterine Artery Right S/D Ratio: ? RI: ?PI: ?%Tile Left S/D Ratio: ?RI: ?PI: ?%Tile Cervix Uterus Adnexa Left Ovary Not visualized Right Ovary Not visualized Impression 2nd Trimester - Targeted Morphology- Summary Single intrauterine with a gestational age of 18w 6d based on clinical ERIC. Composite age based on the current ultrasound alone is 19w 2d. Amniotic fluid volume is normal. Current growth parameters are consistent indicating normal growth. Detailed anatomic evaluation was performed and no structural abnormalities are noted. I ??viewed the images and agree with the above interpretation. ? Karolyn Valles MD Electronically Signed Final Report ?? 10/31/2014 06:50 pm Procedure Note Karolyn Valles MD - 10/31/2014 OBSTETRICS REPORT (Signed Final 10/31/2014 06:50 pm) Patient Info ID #: [id number] : [birth year] (28 yrs)(F) Name: MARTINEZ CAMACHO Visit Date: 10/31/2014 01:56 pm Performed By Performed By: Breann Graves RDMS Attending: Karolyn Valles MD Referred By: Schuyler STEINER MD Service(s) Provided [facility] - Targeted Morphology - Genetics - [id number] Indications morphology, GDM A2;[facility] TO READ Evaluation Num Of Fetuses: 1 Preg. Location: Uterus Heart 157 Rate(bpm): Cardiac Activity: Observed, normal rhythm Presentation: Cephalic Placenta: Anterior P. Cord Insertion: Within Normal Limits Amniotic Fluid BRIDGET FV: Normal -------- Biometry -------- BPD: 43.1 mm G. Age: 19w 0d OFD: 55.9 mm HC: 162.3 mm G. Age: 19w 0d AC: 138.6 mm G. Age: 19w 2d FL: 31.2 mm G. Age: 19w 5d HUM: 31.0 mm G. Age: 20w 2d CER: 19.0 mm G. Age: 18w 4d NFT: 3.36 mm NB: 6.38 mm LV: 7.86 mm CM: 4.66 mm CI: 77.1 % 70 - 86 FL/HC: 19.2 % 16.1 - 18.3 HC/AC: 1.17 1.09 - 1.39 FL/BPD: 72.4 % FL/AC: 22.5 % 20 - 24 Est. FW: 291 gm 0 lb 10 oz Gestational Age Clinical ERIC: 18w 6d ERIC: 03/28/15 U/S Today: 19w 2d ERIC: 03/25/15 Best: 18w 6d Det. By: Clinical ERIC ERIC: 03/28/15 Targeted Anatomy Central Nervous System Calvarium: Within Normal Limits Intracranial: Within Normal Limits Lat. Ventricles: Within Normal Limits Cerebellum: Within Normal Limits Choroid Plexus: Within Normal Limits Cisterna Magna: Within Normal Limits Spine Cervical: Visualized Thoracic: Visualized Lumbar: Visualized Sacral: Visualized Head/Neck Face: Within Normal Limits Nuchal Fold: Within Normal Limits Thorax Four Chamber: Within Normal Limits Cardiac Motion: Normal Rhythm R Outflow Tract: Visualized L Outflow Tract: Visualized Cardiac Millstone: Visualized Diaphragm: Visualized Abdomen Ventral Wall: Visualized Stomach: Visualized Lt Kidney: Visualized Rt Kidney: Visualized Bladder: Visualized Extremities Lt Humerus: Within Nomal Limits Rt Humerus: Within Normal Limits Lt Forearm: Within Normal Limits Rt Forearm: Within Normal Limits Lt Hand: Within Normal Limits Rt Hand: Within Normal Limits Lt Femur: Within Normal Limits Rt Femur: Within Normal Limits Lt Lower Leg: Within Normal Limits Rt Lower Leg: Within Normal Limits Lt Foot: Visualized Rt Foot: Visualized Other Umbilical Cord: 3 vessel cord Cord Insertion: WIthin Normal Limits Comment: Nasal Bone: Visualized Doppler - Uterine Artery Right S/D Ratio: RI: PI: %Tile Left S/D Ratio: RI: PI: %Tile Cervix Uterus Adnexa Left Ovary Not visualized Right Ovary Not visualized Impression 2nd Trimester - Targeted Morphology- Summary Single intrauterine with a gestational age of 18w 6d based on clinical ERIC. Composite age based on the current ultrasound alone is 19w 2d. Amniotic fluid volume is normal. Current growth parameters are consistent indicating normal growth. Detailed anatomic evaluation was performed and no structural abnormalities are noted. I viewed the images and agree with the above interpretation. Karolyn Valles MD Electronically Signed Final Report 10/31/2014 06:50 pm E Suhail Steiner MD IMG OB ORDERAB LES documented in this encounter Visit Diagnoses Diagnosis Abnormal glucose complicating Abnormal maternal glucose tolerance, complicating , childbirth, or the puerperium, unspecified as to episode of care Abnormal glucose complicating Abnormal maternal glucose tolerance, complicating , childbirth, or the puerperium, unspecified as to episode of care documented in this encounter Care Teams Room Service Manager Relationship Specialty Start Date End Date Keyona Guevara MD [address] [facility] [address] [place] [address] PCP - General 10/16/10 12/11/18 documented as of this encounter
--- OUTSIDE RECORDS SUMMARY | 2024-07-01 22:40 | XMS_ITS | Encounter Summary ---
Author [place] [address] Care Team Providers Care Life Cycle Assessment Analyst Name Role Phone Keyona Guevara MD Primary Care Provider [phone] Reason for Visit * Reason Comments Other Encounter Details Date Type Department Care Team (Late st Contact Info) Description 11/22/2014 Telephone Obstetrics [place] [phone] Marilee Kim RN Social History Tobacco Use [...] Telephone Encounter - Marilee Kim RN - 11/22/2014 12:35 PM EST I have spoken to Spring re: her increase of Novolog. She will increase her Novolog to 12u with dinner. * Telephone Encounter - Marilee Kim RN - 11/22/2014 12:35 PM EST ----- Message from Ketty Byrd sent at 11/22/2014 11:18 AM EST ----- Please call [phone], She is returning your call. documented in this encounter Plan of Treatment Not on file documented as of this encounter Visit Diagnoses Not on filedocumented in this encounter Care Teams Life Cycle Assessment Analyst Relationship Specialty Start Date End Date Keyona Guevara MD [address] [facility] [[email or web address] [address] [place] [address] PCP - General 10/16/10 12/11/18 documented as of this encounter
--- OUTSIDE RECORDS SUMMARY | 2024-07-01 22:40 | XMS_ITS | Encounter Summary ---
Author Organization [facility] Address [facility] [place] [address] Care Team Providers Care Chain Offbearer Name Role Phone Susie Khan PERMACULTURE CONTRACTOR Primary Care Provider [phone] Encounter Details Date Type Department Care Team (Late st Contact Info) Description 10/05/2010 Orders Only Obstetrics [place] [address] Gabriela Medeiros MD [facility] OBSTETRICS [facility] [place] [address] Social History Tobacco Use Types Packs/Day Years [...] Associated Diagnosis Comments SURGICAL PATHOLOGY REPORT Routine 10/05/2010 10:32 AM EST documented in this encounter Results * Surgical Pathology Report (10/05/2010 10:32 AM EST) Surgical Pathology Report [id number] ? Location: ; [facility]; B The signing pathologist has (i) examined the relevant preparation(s) for the specimen(s) and (ii) rendered or confirmed the diagnosis(es). . ?Pathology Surgical Pathology Final Report Clinical Information Specimen Submitted: A - Placenta Clinical History: IUP @ 39 weeks, GDMD2 Clinical Diagnosis: Not provided Gross Description Labeled/Fixative: ? Labeled with the patient's name and medical ?record number, fresh. Qty/Size/Weight: ?Single, 15.0 x 13.5 x 3.5 cm, 392 g. Tissue Description: ?? Partially fragmented discoid irene placenta. ?? Membranes: ? Translucent, yellow to pretty-brown and almost ?completely from the placental disc. ??Membranes show approximately 70% circum-marginate insertion with up to 1.5-cm maximum extrachorialis. ?? Cord: ?49.0 cm in diameter, varying from 1.0 cm to 1.6 cm; ?three vessels; eccentric insertion 3.0 cm from the placental margin. ??Cord is pretty, focally edematous with central prominent venous congestion. ??Cord demonstrates a normal pattern of spiraling. ?? Surface: ? Clear, purple-red with prominent umbilical vessels ?and multiple central, yellow-brown lesion suggestive ?of subchorionic foci varying from 1.0 cm to 2.0 cm. ?? Maternal Surface: ??Purple-red, congested, partially fragmented, with ?loosely adherent marginal and retroplacental clotted blood over approximately 10% of the maternal surface and centrally 0.6-cm, braun, well- circumscribed lesion. ?? Parenchyma: ?The specimen is serially sectioned at 0.5-cm to ?1.0-cm intervals. ??Sections show spongy, purple-red cut surface. ??Below the previously described maternal-based lesion is a braun, wedge- shaped parenchymal lesion extending 1.5 cm into the placental parenchyma. ??A smaller peripheral, centrally hemorrhagic, laminated lesion is also present; 1.5 x 1.0 x 0.7 cm, grossly 2.0 cm from the nearest placental margin and 6.0 cm from the larger, central lesion. Sections/Processing : ??Sections are submitted as follows: ??(1) membranes; ?(2) cord; (3) surface; (4) surface lesion; (5) maternal surface; (6) larger, central parenchymal lesion; (7) smaller, peripheral parenchymal lesion. ??(R7) ??aje/SHB Microscopic Description Slides reviewed, microscopic description not recorded. Diagnosis Third trimester placenta, cord and membranes: Negative for chorioamnionitis or funisitis. maternal hemorrhages present (3-4 ML.) . Diagnosis CR-0 10/10/10 KO 10/10/10 Verified by: ? Yvonne Whitlock MD ?Pathologist ?(Electronic Signature) The attending pathologist whose signature appears on this report has reviewed all diagnostic slides and has edited the gross and/or microscopic portion of the report in rendering the final pathologic diagnosis. SARA SHETH 10/05/2010 10:3 2 AM EST Gabriela Rey MD PATHOLOGY/CYTO LOGY ORDERABLES SARA SHETH documented in this encounter Visit Diagnoses Not on filedocumented in this encounter Care Teams Chain Offbearer Relationship Specialty Start Date End Date Susie Khan, PERMACULTURE CONTRACTOR [address] [place] [address] PCP - General Family Medicine 12/09/19 documented as of this encounter
--- OUTSIDE RECORDS SUMMARY | 2024-07-01 22:40 | XMS_ITS | Encounter Summary ---
[place] [address] Care Team Providers Care Software Trainer Name Role Phone Unavailable Primary Care Provider Unavailabl e Encounter Details Date Type Department Care Team (Late st Contact Info) Description 10/02/2010 10:30 AM EST Office Visit Obstetrics [place] [phone] Social History Tobacco Use Types Packs/Day Years [...]
--- OUTSIDE RECORDS SUMMARY | 2024-07-01 22:40 | XMS_ITS | Encounter Summary ---
[place] [address] Care Team Providers Care Payroll Analyst Name Role Phone Keyona Guevara MD Primary Care Provider [phone] Encounter Details Date Type Department Care Team (Late st Contact Info) Description 10/05/2010 [place] [id number] James Lange MD [facility] OBSTETRICS & [place] [address] Social History Tobacco Use Types Packs/Day Years Used Date Smoking Tobacco: Never Assessed Sex and Gender Information Value Date Recorded Sex Assigned at Not on file Gender Identity Not on file Sexual Orientation Not on file documented as of this encounter Plan of Treatment Not on file documented as of this encounter Procedures Procedure Name Priority Date/Time Associated Diagnosis Comments DIFFERENTIAL, AUTOMATED STAT 10/06/2010 6:00 AM EST CBC (WITH DIFF) STAT 10/06/2010 6:00 AM EST ABO/RH TYPING Routine 10/05/2010 11:57 AM EST ANTIBODY SCREEN Routine 10/05/2010 11:57 AM EST DIFFERENTIAL, AUTOMATED STAT 10/05/2010 11:30 AM EST CBC (WITH DIFF) STAT 10/05/2010 11:30 AM EST SURGICAL PATHOLOGY REPORT Routine 10/05/2010 10:32 AM EST documented in this encounter Results * (ABNORMAL) REFLEX LAB-A-DIFF (10/06/2010 6:00 AM EST) Neutrophil % 70.1 34.0 - 71.0 % CERNER MILLENNIUM Neutrophil Absolute 6.75(H) 1.50 - 6.30 x10(3)/mc L CERNER MILLENNIUM Lymph % 19.4 19.0 - 53.0 % CERNER MILLENNIUM Lymphocytes Abs 1.9 1.0 - 3.6 x10(3)/mc L CERNER MILLENNIUM Monocyte % 9.8 4.0 - 13.0 % CERNER MILLENNIUM Monocyte Abs 0.9 0.2 - 1.0 x10(3)/mc L CERNER MILLENNIUM Eos % 0.3 0.0 - 7.0 % CERNER MILLENNIUM Eosinophils Abs 0.0 0.0 - 0.5 x10(3)/mc L CERNER MILLENNIUM Basophil % 0.1 0.0 - 2.0 % CERNER MILLENNIUM Baso Absolute 0.0 0.0 - 0.2 x10(3)/mc L CERNER MILLENNIUM Immature Gran % 0.30 0.00 - 0.66 % CERNER MILLENNIUM Comment: Immature granulocytes(IG's)percentage and absolute count will include metamyelocytes, myelocytes, and promyelocytes. Blood smears from CBC's yielding IG's will be scanned manually for concordance. If this scan disagrees with the automated IG or if promyelocytes are noted, a manual differential will be performed. Immature Gran Absolute 0.03 0.00 - 0.05 x10(3)/mc L CERNER MILLENNIUM Blood specimen (specimen) 10/06/2010 6:00 AM EST 10/06/2010 6:05 AM EST James Lange MD HEMATOLOGY ORDERABLE S CERNER JETENNIUM * (ABNORMAL) CBC (10/06/2010 6:00 AM EST) [facility] White Blood Cell 9.6 4.0 - 10.0 x10(3)/mc L [facility] Red Blood Cell 3.48(L) 3.93 - 5.22 x10(6)/mc L CERNER MILLENNIUM Hemoglobin 10.8(L) 11.2 - 15.7 gm/dL CERNER MILLENNIUM Hematocrit 32.5(L) 34.0 - 45.0 % CERNER MILLENNIUM Mean Cell Volume 93.4 79.0 - 94.0 fL CERNER MILLENNIUM Mean Cell Hemoglobin 31.0 26.6 - 32.2 pg CERNER MILLENNIUM Mean Cell Hemoglobin Concentration 33.2 32.0 - 36.5 gm/dL CERNER MILLENNIUM Platelet 153 145 - 370 x10(3)/mc L CERNER MILLENNIUM RDW Standard Deviation 46.9(H) 35.0 - 46.0 fL CERNER MILLENNIUM RDW coefficient of variation 13.9 10.9 - 14.4 % CERNER MILLENNIUM Mean Platelet Volume 10.3 9.0 - 12.0 fL CERNER MILLENNIUM Blood specimen (specimen) 10/06/2010 6:00 AM EST 10/06/2010 6:05 AM EST James Lange MD HEMATOLOGY ORDERABLE S SARA RABAGOIUM * REFLEX LAB-ANTIBODY SCREEN (10/05/2010 11:57 AM EST) [facility] Ab Screen Interp Negative CERNER MILLENNIUM Expires at [id number] on: [id number] CERNER MILLENNIUM Blood specimen (specimen) 10/05/2010 11:57 AM EST 10/05/2010 11:57 AM EST James Lange MD BLOOD BANK LAB ORDER [facility] * REFLEX LAB-ABO/RH (10/05/2010 11:57 AM EST) [facility] ABORH Type A Pos CERNER MILLENNIUM Blood specimen (specimen) 10/05/2010 11:57 AM EST 10/05/2010 11:57 AM EST James Lange MD BLOOD BANK LAB ORDER CEDRICK CERNER MILLENNIUM * REFLEX LAB-A-DIFF (10/05/2010 11:30 AM EST) Neutrophil % 65.1 34.0 - 71.0 % CERNER MILLENNIUM Neutrophil Absolute 4.47 1.50 - 6.30 x10(3)/mcL CERNER MILLENNIUM Lymph % 22.0 19.0 - 53.0 % CERNER MILLENNIUM Lymphocytes Abs 1.5 1.0 - 3.6 x10(3)/mcL CERNER MILLENNIUM Monocyte % 12.1 4.0 - 13.0 % CERNER MILLENNIUM Monocyte Abs 0.8 0.2 - 1.0 x10(3)/mcL CERNER MILLENNIUM Eos % 0.4 0.0 - 7.0 % CERNER MILLENNIUM Eosinophils Abs 0.0 0.0 - 0.5 x10(3)/mcL CERNER MILLENNIUM Basophil % 0.1 0.0 - 2.0 % CERNER MILLENNIUM Baso Absolute 0.0 0.0 - 0.2 x10(3)/mcL CERNER MILLENNIUM Immature Gran % 0.30 0.00 - 0.66 % CERNER MILLENNIUM Comment: Immature granulocytes(IG's)percentage and absolute count will include metamyelocytes, myelocytes, and promyelocytes. Blood smears from CBC's yielding IG's will be scanned manually for concordance. If this scan disagrees with the automated IG or if promyelocytes are noted, a manual differential will be performed. Immature Gran Absolute 0.02 0.00 - 0.05 x10(3)/mcL CERNER MILLENNIUM Blood specimen (specimen) 10/05/2010 11:30 AM EST 10/05/2010 11:53 AM EST James Lange MD HEMATOLOGY ORDERABLE S CERHÉCTOR CHAUDHARYENNIUM * (ABNORMAL) CBC (10/05/2010 11:30 AM EST) White Blood Cell 6.9 4.0 - 10.0 x10(3)/mc L CERNER MILLENNIUM Red Blood Cell 4.20 3.93 - 5.22 x10(6)/mc L CERNER MILLENNIUM Hemoglobin 12.9 11.2 - 15.7 gm/dL CERNER MILLENNIUM Hematocrit 39.5 34.0 - 45.0 % CERNER MILLENNIUM Mean Cell Volume 94.0 79.0 - 94.0 fL CERNER MILLENNIUM Mean Cell Hemoglobin 30.7 26.6 - 32.2 pg CERNER MILLENNIUM Mean Cell Hemoglobin Concentration 32.7 32.0 - 36.5 gm/dL CERNER MILLENNIUM Platelet 194 145 - 370 x10(3)/mc L CERNER MILLENNIUM RDW Standard Deviation 47.2(H) 35.0 - 46.0 fL CERNER MILLENNIUM RDW coefficient of variation 13.9 10.9 - 14.4 % CERNER MILLENNIUM Mean Platelet Volume 10.9 9.0 - 12.0 fL CERNER MILLENNIUM Blood specimen (specimen) 10/05/2010 11:30 AM EST 10/05/2010 11:53 AM EST James Lange MD HEMATOLOGY ORDERABLE S CERHÉCTOR CHAUDHARYENNIUM * PATHOLOGY SURGICAL PATHOLOGY FINAL REPORT (10/05/2010 10:32 AM EST) Surgical Pathology Report ? [facility] ? Provider: ?? MIRZA REY, ? Pt. Name: ?? MARTINEZ CAMACHO ?GABRIELA Payan ? Acc #: ?[id number] ?Pt. ? Col Date: ?? 10/05/2010 ?/Sex: ?1985,(24 years),Female ? Rec Date: ?? 10/08/2010 ?LOC: ?BP ? SURGICAL PATHOLOGY ? ---Pathologic Diagnosis--- ? Third trimester placenta, cord and membranes: ? Negative for chorioamnionitis or funisitis. ? maternal hemorrhages present (3-4 ML.) ? CR-0 ? 10/10/10 ? KO ? 10/10/10 Verified by: ? Yvonne Whitlock MD ? Pathologist ? (Electronic Signature) ? The attending pathologist whose signature appears on this report has ? reviewed all diagnostic slides and has edited the gross and/or ? microscopic portion of the report in rendering the final pathologic ? diagnosis. ? ---Microscopic Description--- ? Slides reviewed, microscopic description not recorded. ? ---Gross Description--- ? Labeled/Fixative: ? Labeled with the patient's name and medical ? record number, fresh. ? Qty/Size/Weight: ?Single, 15.0 x 13.5 x 3.5 cm, 392 g. ? Tissue Description: ?? Partially fragmented discoid irene placenta. ?Membranes: ? Translucent, yellow to pretty-brown and almost ? completely from the placental disc. ? Membranes show approximately 70% circum-marginate insertion with up to 1.5- ? cm maximum extrachorialis. ?Cord: ?49.0 cm in diameter, varying from 1.0 cm to 1.6 cm; ? three vessels; eccentric insertion 3.0 cm from the ? placental margin. ??Cord is pretty, focally edematous with central prominent ? venous congestion. ??Cord demonstrates a normal pattern of spiraling. ? Surface: ? Clear, purple-red with prominent umbilical vessels ? and multiple central, yellow-brown lesion suggestive ? of subchorionic foci varying from 1.0 cm to 2.0 cm. ?Maternal Surface: ??Purple-red, congested, partially fragmented, with ? loosely adherent marginal and retroplacental clotted ? blood over approximately 10% of the maternal surface and centrally 0.6-cm, ? braun, well-circumscribed lesion. ?Parenchyma: ?The specimen is serially sectioned at 0.5-cm to ? [facility] ? Provider: ?? MIRZA REY, ? Pt. Name: ?? MARTINEZ CAMACHO ?GABRIELA E ? Acc #: ?[id number] ?Pt. ? Col Date: ?? 10/05/2010 ?/Sex: ?1985,(24 years),Female ? Rec Date: ?? 10/08/2010 ?LOC: ?BP ? 1.0-cm intervals. ??Sections show spongy, purple-red ? cut surface. ??Below the previously described maternal-based lesion is a ? SURGICAL PATHOLOGY ? braun, wedge-shaped parenchymal lesion extending 1.5 cm into the placental ? parenchyma. ??A smaller peripheral, centrally hemorrhagic, laminated lesion ? is also present; 1.5 x 1.0 x 0.7 cm, grossly 2.0 cm from the nearest ? placental margin and 6.0 cm from the larger, central lesion. ? Sections/Processing : ??Sections are submitted as follows: ??(1) membranes; ? (2) cord; (3) surface; (4) surface ? lesion; (5) maternal surface; (6) larger, central parenchymal lesion; (7) ? smaller, peripheral parenchymal lesion. ??(R7) ??aje/SHB ? ---Clinical Information--- ? Specimen Submitted: ? A - Placenta ? Clinical History: ? IUP @ 39 weeks, GDMD2 ? Clinical Diagnosis: ? Not provided SARA SHETH 10/05/2010 10:3 2 AM EST Gabriela Rey MD PATHOLOGY/CYTO LOGY ORDERABLES Performing Organization Address City/State/[facility] Co de Phone Number SARA SHETH documented in this encounter Visit Diagnoses Not on filedocumented in this encounter Care Teams Payroll Analyst Relationship Specialty Start Date End Date Keyona Guevara MD [address] [place] [address] PCP - General 11/23/10 1/18/19 documented as of this encounter
--- OUTSIDE RECORDS SUMMARY | 2024-07-01 22:40 | XMS_ITS | Encounter Summary ---
[place] [address] Care Team Providers Care Contracting Manager Name Role Phone Keyona Guevara MD Primary Care Provider [phone] Encounter Details Date Type Department Care Team (Late st Contact Info) Description 09/14/2010 [place] [id number] Sushila Brunner MD [facility] [address] OBSTET[place]ICS [place] [address] Social History Tobacco Use Types Packs/Day Years [...] Comments GROUP B STREP CULTURE SCREEN Routine 09/14/2010 10:00 AM EDT documented in this encounter Results * STREP B SCREEN, VAGINAL / RECTAL (09/14/2010 10:00 AM EDT) Group B Streptococcus Culture ? Patient Name: MARTINEZ CAMACHO ? Ordered By: SUSHILA BRUNNER ? MR#: [id number] ?LOC: ??5L ? /Sex: ??1985 (24 years), ? Female ? PROCEDURE: Group B Streptococcus Culture ?SOURCE: Vag/Rectal ? COLLECTED: 09/14/2010 10:00 ? STARTED: 09/14/2010 11:55 ? FINAL REPORT ? Final Report ? Verified:09/19/20 10 07:13 ? Beta Hemolytic Streptococci, Group B isolated ? PRELIMINARY REPORT ? Preliminary Report ? Verified:09/15/20 10 07:58 ? Beta Hemolytic Streptococci, Group B isolated ? Susceptibility testing in progress ? SUSCEPTIBILITY RESULTS ? Beta Hemolytic Streptococci, Group B ? __ ?KB Interp ? Clindamycin ?S ? Erythromycin ? S ? S=Susceptible ??I=Intermediate ??R=Resistant ??NA=Not Applicable ? DDS=Dose dependent-suscept ible ??NS=Non-suscepti ble ? CERNER MILLENNIUM Pooled specimen from vaginal introitus and rectal swab (specimen) 09/14/2010 10:00 AM EDT 09/14/2010 11:31 AM EDT Sushila Brunner MD MICROBIOLOGY - GEN ERAL ORDERABLES Performing Organization Address City/State/[facility] Co nc Phone Number SARA [facility] documented in this encounter Visit Diagnoses Not on filedocumented in this encounter Care Teams Contracting Manager Relationship Specialty Start Date End Date Keyona Guevara MD [address] [place] [address] PCP - General 10/16/10 12/11/18 documented as of this encounter
--- OUTSIDE RECORDS SUMMARY | 2024-07-01 22:40 | XMS_ITS | Encounter Summary ---
Author Organization [facility] Address [facility] [place] [address] Care Team Providers Care Store Sales Consultant Name Role Phone Keyona Guevara MD Primary Care Provider [phone] Encounter Details Date Type Department Care Team (Latest Contact Info) Description 01/02/2015 2:27 PM EST - 01/02/2015 11:59 PM [facility] Hospital [place] [address] Schuyler Steiner MD [facility] OBSTETRICS [place] [address] Supervision of high risk in second trimester; Gestational diabetes Discharge Disposition: Home Social History Tobacco Use [...] on file documented as of this encounter Medications at Time of Discharge Medication Sig Dispensed Refills Start Date End Date insulin aspart (NOVOLOG) SolutionIndications: Abnormal glucose complicating Please inject subcutaneously 13 units in the morning and 8 units at bed. 10 mL 12 10/17/2014 03/04/2015 insulin NPH human recomb (HUMULIN;NOVOLIN) SuspensionIndication s:Abnormal glucose complicating Please inject subcutaneously 8u in the morning and 6u at bed. 10 mL 12 10/17/2014 03/04/2015 Insulin Syringe-Needle U-100 1/2 mL 31 x 5/16 SyringeIndications:A bnormal glucose complicating 1 Box by [facility]Non-Drug; Combo Route) route 3 times daily. 100 Syringe PRN 10/17/2014 03/04/2015 Alcohol Swabs Pads, MedicatedIndications :Abnormal glucose complicating Apply 200 each topically 3 times daily. 200 each PRN 10/17/2014 12/11/2017 VITS W-CA,FE,FA,<1MG, ( VITAMIN ORAL) 10/11/2010 12/11/2017 documented as of this encounter Plan of Treatment Not on file documented as of this encounter Procedures Procedure Name Priority Date/Time Associated Diagnosis Comments HEMOGRAM Routine 01/02/2015 2:43 PM EST Supervision of high risk in second trimester Gestational diabetes mellitus in , insulin controlled DIFFERENTIAL, AUTOMATED Routine 01/02/2015 2:43 PM EST Supervision of high risk in second trimester Gestational diabetes mellitus in , insulin controlled CBC (WITH DIFF) Routine 01/02/2015 2:43 PM EST Supervision of high risk in second trimester Gestational diabetes documented in this encounter Results * (ABNORMAL) Differential, Automated (01/02/2015 2:43 PM EST) Neutrophil % 67.2 % CERNER MILLENNIUM Neutrophil Absolute 7.63(H) 1.50 - 6.30 x10(3)/mc L CERNER MILLENNIUM Lymph % 21.4 % CERNER MILLENNIUM Lymphocytes Abs 2.4 1.0 - 3.6 x10(3)/mc L CERNER MILLENNIUM Monocyte % 9.8 % CERNER MILLENNIUM Monocyte Abs 1.1(H) 0.2 - 1.0 x10(3)/mc L CERNER MILLENNIUM Eos % 0.6 % CERNER MILLENNIUM Eosinophils Abs 0.1 0.0 - 0.5 x10(3)/mc L CERNER MILLENNIUM Basophil % 0.1 % CERNER MILLENNIUM Baso Absolute 0.0 0.0 - 0.2 x10(3)/mc L CERNER MILLENNIUM Immature Gran % 0.90 % CERN ER MILLENNIUM Comment: Immature granulocytes(IG's)percentage and absolute count will include metamyelocytes, myelocytes, and promyelocytes. Blood smears from CBCs yielding IG's will be scanned manually for concordance. If this scan disagrees with the automated IG or if promyelocytes are noted, a manual differential will be performed. Immature Gran Absolute 0.10(H) 0.00 - 0.05 x10(3)/mc L CERNER MILLENNIUM Blood specimen (specimen) 01/02/2015 2:43 PM EST 01/02/2015 2:53 PM EST Narrative Resulting Agency Comment Spec In Lab E Ghada Steiner MD HEMATOLOGY ORDERA BLES CERNER MILLENNIUM * (ABNORMAL) Hemogram (01/02/2015 2:43 PM EST) White Blood Cell 11.4(H) 4.0 - 10.0 x10(3)/mc L CERNER MILLENNIUM Red Blood Cell 3.73(L) 3.93 - 5.22 x10(6)/mc L CERNER MILLENNIUM Hemoglobin 12.0 11.2 - 15.7 gm/dL CERNER MILLENNIUM Hematocrit 35.5 34.0 - 45.0 % CERNER MILLENNIUM Mean Cell Volume 95.2(H) 79.0 - 94.0 fL CERNER MILLENNIUM Mean Cell Hemoglobin 32.2 26.6 - 32.2 pg CERNER MILLENNIUM Mean Cell Hemoglobin Concentration 33.8 32.0 - 36.5 gm/dL CERNER MILLENNIUM Platelet 190 145 - 370 x10(3)/mc L CERNER MILLENNIUM RDW Standard Deviation 46.8(H) 35.0 - 46.0 fL CERNER MILLENNIUM RDW coefficient of variation 13.5 10.9 - 14.4 % CERNER MILLENNIUM Mean Platelet Volume 9.8 9.0 - 12.0 fL CERNER MILLENNIUM Blood specimen (specimen) 01/02/2015 2:43 PM EST 01/02/2015 2:53 PM EST Narrative Resulting Agency Comment Spec In Lab E Ghada Pschirrer MD HEMATOLOGY [facility] [place] documented in this encounter Visit Diagnoses Diagnosis Supervision of high risk in second trimester Unspecified high-risk Gestational diabetes Abnormal maternal glucose tolerance, complicating , childbirth, or the puerperium, unspecified as to episode of care documented in this encounter Care Teams Store Sales Consultant Relationship Specialty Start Date End Date Keyona Guevara MD [address] [place] [address] PCP - General 10/16/10 12/11/18 documented as of this encounter
--- OUTSIDE RECORDS SUMMARY | 2024-07-01 22:40 | XMS_ITS | Encounter Summary ---
Author Organization [facility] [place] [address] Care Team Providers Care Local Az Truck Driver Name Role Phone Keyona Guevara MD Primary Care Provider [phone] Encounter Details Date Type Department Care Team (Latest Contact Info) Description 01/02/2015 12:45 PM EST - 01/02/2015 2:26 PM [facility] Hospital Encounter [place] [phone] Supervision of high risk in second trimester; Gestational diabetes Social History Tobacco Use Types Packs/Day Years [...] SyringeIndications:A bnormal glucose complicating [facility]; Combo Route) route 3 times daily. 100 Syringe PRN 10/17/2014 03/04/2015 Alcohol Swabs Pads, MedicatedIndications :Abnormal glucose complicating Apply 200 each topically 3 times daily. 200 each PRN 10/17/2014 12/11/2017 VITS W-CA,FE,FA,<1MG, ( VITAMIN ORAL) 10/11/2010 12/11/2017 documented as of this encounter Plan of Treatment Not on file documented as of this encounter Procedures Procedure Name Priority Date/Time Associated Diagnosis Comments US OB FOLLOW UP Routine 01/02/2015 1:47 PM EST Supervision of high risk in second trimester Gestational diabetes documented in this encounter Results * US OB follow up evaluation (01/02/2015 1:47 PM EST) Anatomical Region Laterality Modality Pelvis, Abdomen Ultrasound 01/02/2015 1:47 PM EST Narrative 01/02/2015 2:39 PM EST OBSTETRICS REPORT ?(Signed Final 01/02/2015 02:39 ? pm) Patient Info ID #: ? [id number] ?: ??[birth year] (29 yrs)(F) Name: ? MARTINEZ CAMACHO ?Visit Date: 01/02/2015 01:43 pm Performed By Performed By: ?Mary Groves RDMS Attending: ? Reena FOY, Karolyn Botello Referred By: ? E SUHAIL STEINER MD Service(s) Provided ??UOBFOL - Efw - Growth - Jarquin - [phone] ? [id number] Indications ??growth; diabetes;MFM TO READ Evaluation Num [...] 01/02/2015 02:39 pm) Patient Info ID #: [id number] : [birth year] (29 yrs)(F) Name: MARTINEZ CAMACHO Visit Date: 01/02/2015 01:43 pm Performed By Performed By: Mary Groves RDMS Attending: Karolyn Valles MD Referred By: Schuyler STEINER MD Service(s) Provided UOBFOL - Efw - Growth - Jarquin - [phone] Indications growth; diabetes;MFM TO READ Evaluation Num [...] Steiner MD IMG US OB ORDERAB LES documented in this encounter Visit Diagnoses Diagnosis Supervision of high risk in second trimester Unspecified high-risk Gestational diabetes Abnormal maternal glucose tolerance, complicating , childbirth, or the puerperium, unspecified as to episode of care documented in this encounter Care Teams Local Az Truck Driver Relationship Specialty Start Date End Date Keyona Guevara MD [address] [place] [address] PCP - General 10/16/10 12/11/18 documented as of this encounter
--- OUTSIDE RECORDS SUMMARY | 2024-07-01 22:40 | XMS_ITS | Encounter Summary ---
Author Organization [facility] [address] [place] [address] Care Team Providers Care Latin Professor Name Role Phone Keyona Guevara MD Primary Care Provider [phone] Encounter Details Date Type Department Care Team (Late st Contact Info) Description 12/07/2014 Telephone Obstetrics [place] [address] Marilee Kim RN Social History [...] Telephone Encounter - Marilee Kim RN - 12/07/2014 4:09 PM EST Images from the original note were not included. I have reviewed Spring's blood sugars with Dr. Godinez. She is beginning to note elevations around dinner. Dr. oGdinez would like Spring to increase her Novolog to 14u with dinner. Spring was unable to be reached. A voicemail was left. documented in this encounter Plan of Treatment Not on file documented as of this encounter Visit Diagnoses Not on filedocumented in this encounter Care Teams Latin Professor Relationship Specialty Start Date End Date Keyona Guevara MD [address] [place] [address] PCP - General 10/16/10 12/11/18 documented as of this encounter
--- OUTSIDE RECORDS SUMMARY | 2024-07-01 22:40 | XMS_ITS | Encounter Summary ---
Author [place] [address] Care Team Providers Care Service Support Representative Name Role Phone Keyona Guevara MD Primary Care Provider [phone] Reason for Visit * Reason Onset Date Comments Blood Sugar Problem 10/25/2014 Encounter Details Date Type Department Care Team (Late st Contact Info) Description 10/25/2014 Telephone Obstetrics [place] [address] Adina Weaver RN Blood Sugar Problem Social History Tobacco Use Types Packs/Day Years [...] encounter Miscellaneous Notes * Telephone Encounter - Adina Weaver RN - 10/25/2014 4:21 PM EST Spring has sent in her blood sugars for the dates 10/18-10/24/14. These results have been reviewed by Dr. Gan (scanned into this record): Dr. Gan has ordered an increase in her insulin to: Am: Novolog 8 units (same) NPH from 13 units to 14 units Dinner coverage: Novolog from 6 units increased to 8 units sc. Bedtime: no change, remains NPH 6 units. Spring understands this information and will send in her blood sugars again on Friday for assessment. documented in this encounter Plan of Treatment Not on file documented as of this encounter Visit Diagnoses Not on filedocumented in this encounter Care Teams Service Support Representative Relationship Specialty Start Date End Date Keyona Guevara MD [address] [facility] [place] [address] PCP - General 10/16/10 12/11/18 documented as of this encounter
--- OUTSIDE RECORDS SUMMARY | 2024-07-01 22:40 | XMS_ITS | Encounter Summary ---
Author Organization [facility] [place] [address] Care Team Providers Care Vice President Of Compliance Name Role Phone Keyona Guevara MD Primary Care Provider [phone] Encounter Details Date Type Department Care Team (Late st Contact Info) Description 09/01/2010 [place] [address] Sushila Godinez MD [facility] [address] OBSTETRICS [place] [address] Social History Tobacco Use Types Packs/Day Years Used Date Smoking Tobacco: Never Assessed Sex and Gender Information Value Date Recorded Sex Assigned at Not on file Gender Identity Not on file Sexual Orientation Not on file documented as of this encounter Plan of Treatment Not on file documented as of this encounter Procedures Procedure Name Priority Date/Time Associated Diagnosis Comments POCT GLUCOSE Routine 09/01/2010 11:12 PM EDT SCAN, PERIPHERAL BLOOD Routine 09/01/2010 11:00 PM EDT DIFFERENTIAL, AUTOMATED Routine 09/01/2010 11:00 PM EDT ABO/RH TYPING STAT 09/01/2010 11:00 PM EDT CBC (WITH DIFF) Routine 09/01/2010 11:00 PM EDT ANTIBODY SCREEN STAT 09/01/2010 11:00 PM EDT documented in this encounter Results * POCT GLUCOMETER ORDER (LAB USE ONLY) (09/01/2010 11:12 PM EDT) [facility] Glucose, POC 105 70 - 110 mg/dL [facility] Comment: Supplemental ranges: <110 mg/dL before meals <200 mg/dL all other times of the day Blood specimen (specimen) 09/01/2010 11:12 PM EDT 09/01/2010 11:12 PM EDT Sushila Godinez MD POINT OF CARE TEST ORDERABLES Performing Organization Address [facility] Co de Phone Number [facility] * REFLEX LAB-ANTIBODY SCREEN (09/01/2010 11:00 PM EDT) [facility] Ab Screen Interp Negative [facility] Expires at [phone] on: [id number] [facility] Blood specimen (specimen) 09/01/2010 11:00 PM EDT 09/01/2010 11:19 PM EDT Sushila Godinez MD BLOOD BANK LAB ORD ERABLES Performing Organization Address [facility] Co de Phone Number [facility] * REFLEX LAB-ABO/RH (09/01/2010 11:00 PM EDT) [facility] ABORH Type A Pos [facility] Blood specimen (specimen) 09/01/2010 11:00 PM EDT 09/01/2010 11:19 PM EDT Sushila Godinez MD BLOOD BANK LAB ORD ERABLES Performing Organization Address [facility] Co de Phone Number [facility] * REFLEX LAB-SCAN (09/01/2010 11:00 PM EDT) [facility] Plat estimate Normal [facility] RBC Morphology Normal [facility] Blood specimen (specimen) 09/01/2010 11:00 PM EDT 09/01/2010 11:19 PM EDT Sushila Godinez MD HEMATOLOGY ORDERAB LES [facility] * REFLEX LAB-A-DIFF (09/01/2010 11:00 PM EDT) Neutrophil % 60.1 34.0 - 71.0 % [facility] Neutrophil Absolute 5.99 1.50 - 6.30 x10(3)/mcL [facility] Lymph % 29.1 19.0 - 53.0 % [facility] MILLENNIUM Lymphocytes Abs 2.9 1.0 - 3.6 x10(3)/mcL CERNER MILLENNIUM Monocyte % 9.7 4.0 - 13.0 % CERNER MILLENNIUM Monocyte Abs 1.0 0.2 - 1.0 x10(3)/mcL CERN[facility] MILLENNIUM Eos % 0.7 0.0 - 7.0 % CERNER MILLENNIUM Eosinophils Abs 0.1 0.0 - 0.5 x10(3)/mcL [facility]ILLENNI[facility] Basophil [...] Immature Gran Absolute 0.03 0.00 - 0.05 x10(3)/mcL [facility] Blood specimen (specimen) 09/01/2010 11:00 PM EDT 09/01/2010 11:19 PM EDT Sushila Godinez MD HEMATOLOGY ORDERAB LES [facility] * CBC (09/01/2010 11:00 PM EDT) White Blood Cell 10.0 4.0 - 10.0 x10(3)/mcL [facility] Red Blood Cell 3.98 3.93 - 5.22 x10(6)/mcL [facility]ILL[facility] Hemoglobin 12.4 11.2 - 15.7 gm/dL [facility]ILL[facility]NI[facility] Hematocrit 36.5 34.0 - 45.0 % [facility] MILLENNIUM Mean Cell Volume 91.7 79.0 - 94.0 fL [facility] MILLENNIUM Mean Cell Hemoglobin 31.2 26.6 - 32.2 pg [facility] MILLENNIUM Mean Cell Hemoglobin Concentration 34.0 32.0 - 36.5 gm/dL CERN[facility] MILLENNIUM Platelet 197 145 - 370 x10(3)/mcL CERNER MILLENNIUM RDW Standard Deviation 44.4 35.0 - 46.0 fL CERNER MILLENNIUM RDW coefficient of variation 13.5 10.9 - 14.4 % CERN[facility] MILLENNIUM Mean Platelet Volume 10.0 9.0 - 12.0 fL [facility]ILL[facility] Blood specimen (specimen) 09/01/2010 11:00 PM EDT 09/01/2010 11:19 PM EDT Sushila Godinez MD HEMATOLOGY ORDERAB LES [facility] Organization Address City/State/ZIP Co de Phone Number [facility] documented in this encounter Visit Diagnoses Not on filedocumented in this encounter Care Teams Vice President Of Compliance Relationship Specialty Start Date End Date Keyona Guevara MD [address] [place] [address] PCP - General 10/16/10 12/11/18 documented as of this encounter
--- OUTSIDE RECORDS SUMMARY | 2024-07-01 22:40 | XMS_ITS | Encounter Summary ---
[place] [address] Care Team Providers Care Legal Department Manager Name Role Phone Keyona Guevara MD Primary Care Provider Reason for Visit * Reason Onset Date Comments Medication Problem 12/08/2014 Encounter Details Date Type Department Care Team (Late st Contact Info) Description 12/08/2014 Telephone Obstetrics [place] [phone] Marilee Kim, heddler tier Problem Social History Tobacco Use Types Packs/Day [...] Telephone Encounter - Marilee Kim RN - 12/08/2014 2:13 PM EST Caller: Spring Learning Needs Assessment Reviewed: Yes Subjective Patient presents with: I have discussed Spring's FSBS and adjustments to insulin. She will increase her dinner Novolog to 14u. She has also provided an alternative phone number, and has given us permission to leave a voicemail with insulin changes and medical information. Objective/Assessment Symptom onset: Location: Duration: Characteristics: Aggravating factors: Relieving factors: Timing: Severity: Pertinent Past Medical History: GDM A2 - Insulin Plan Intervention/Plan/ Follow Up: Spring will increase her Novolog to 14u. * Telephone Encounter - Marilee Kim RN - 12/08/2014 2:12 PM EST ----- Message from Aleshia Zambrano sent at 12/08/2014 11:31 AM EST ----- Patient is returning your call, she would like you to call her back at her desk [phone] not her cell. Brenden documented in this encounter Plan of Treatment Not on file documented as of this encounter Visit Diagnoses Not on filedocumented in this encounter Care Teams Legal Department Manager Relationship Specialty Start Date End Date Keyona Guevara MD [address] [place] [address] PCP - General 10/16/10 12/11/18 documented as of this encounter
--- OUTSIDE RECORDS SUMMARY | 2024-07-01 22:40 | XMS_ITS | Encounter Summary ---
Author Organization [facility] [place] [address] Care Team Providers Care Hide And Skin Colerer Name Role Phone Keyona Guevara MD Primary Care Provider [phone] Encounter Details Date Type Department Care Team (Late st Contact Info) Description 10/02/2010 [place] [phone] Karolyn Valles MD [facility] [address] OBSTETRICS [place] [address] Social History Tobacco Use Types Packs/Day Years Used Date Smoking Tobacco: Never Assessed Sex and Gender Information Value Date Recorded Sex Assigned at Not on file Gender Identity Not on file Sexual Orientation Not on file documented as of this encounter Plan of Treatment Not on file documented as of this encounter Procedures Procedure Name Priority Date/Time Associated Diagnosis Comments URINE CULTURE Routine 10/02/2010 1:47 PM EST documented in this encounter Results * URINE CULTURE (10/02/2010 1:47 PM EST) Urine Culture ? Patient Name: MARTINEZ CAMACHO ? Ordered By: KAROLYN VALLES ? MR#: [id number] ?LOC: ??5L ? /Sex: ??1985 (24 years), ? Female ? PROCEDURE: Urine Culture ?SOURCE: T CC ? COLLECTED: 10/02/2010 13:47 ? STARTED: 10/02/2010 13:58 ? FINAL REPORT ? Final Report ? Verified:09/24 12:17 ? 10,000-49,000 cfu/ml mixed mucosal nikhil including Beta Hemolytic ? Streptococci, Group B ? __ CERNER MILLENNIUM Urine specimen obtained by clean catch procedure (specimen) 10/02/2010 1:47 PM EST 10/02/2010 1:47 PM EST Karolyn Valles MD MICROBIOLOGY - GENER AL ORDERABLES Performing Organization Address City/State/[facility] Co [place] Phone Number [facility] documented in this encounter Visit Diagnoses Not on filedocumented in this encounter Care Teams Hide And Skin Colerer Relationship Specialty Start Date End Date Keyona Guevara MD [address] [place] [address] PCP - General 10/16/10 12/11/18 documented as of this encounter
--- OUTSIDE RECORDS SUMMARY | 2024-07-01 22:40 | XMS_ITS | Encounter Summary ---
[place] [address] Care Team Providers Care Forging Operator Name Role Phone Keyona Guevara MD Primary Care Provider [phone] Reason for Visit * Reason Comments Other Encounter Details Date Type Department Care Team (Late Contact Info) Description 12/08/2014 Telephone Obstetrics [place] [phone] Marilee Kim RN Social History Tobacco Use [...] Encounter - Marilee Kim RN - 12/08/2014 9:50 AM EST Spring is returning my call. I have called her back. She was unable to be reached. A voicemail is left. * Telephone Encounter - Marilee Kim RN - 12/08/2014 9:48 AM EST ----- Message from Ketty Byrd sent at 12/08/2014 9:00 AM EST ----- Please call [phone]. She is returning your call documented in this encounter Plan of Treatment Not on file documented as of this encounter Visit Diagnoses Not on filedocumented in this encounter Care Teams Forging Operator Relationship Specialty Start Date End Date Keyona Guevara MD [address] [facility] [address] [place] [address] PCP - General 10/16/10 12/11/18 documented as of this encounter
--- OUTSIDE RECORDS SUMMARY | 2024-07-01 22:40 | XMS_ITS | Encounter Summary ---
Author Organization [facility] [place] [address] Care Team Providers Care Sheet Metal Helper Name Role Phone Keyona Guevara MD Primary Care Provider [phone] Encounter Details Date Type Department Care Team (Late st Contact Info) Description 11/21/2014 Telephone Obstetrics [place] [address] Marilee Kim, RN Social History Tobacco Use Types Packs/Day [...] Telephone Encounter - Marilee Kim RN - 11/21/2014 4:25 PM EST Images from the original note were not included. I have received Spring's blood sugars for this week. They are improved over last week. Her dinner postprandials remain elevated. Per Dr. Steiner, she would like Srping to increase her dinner Novolog to 12u. I have called Spring to ask her to make these insulin adjustments. She was unable to be reached, and a voicemail was left asking her to please return my call. documented in this encounter Plan of Treatment Not on file documented as of this encounter Visit Diagnoses Not on filedocumented in this encounter Care Teams Sheet Metal Helper Relationship Specialty Start Date End Date Keyona Guevara MD [address] [facility] [address] [place] [address] PCP - General 10/16/10 12/11/18 documented as of this encounter
--- OUTSIDE RECORDS SUMMARY | 2024-07-01 22:40 | XMS_ITS | Encounter Summary ---
[place] [address] Care Team Providers Care Science Editor Name Role Phone Keyona Guevara MD Primary Care Provider [phone] Reason for Visit * Reason Comments Maternal Condition Encounter Details Date Type Department Care Team (Late st Contact Info) Description 12/14/2014 1:00 PM EST Office Visit [place] [address] Justnie Arce MD [address] [place] [address] [place] [address] Maternal diabetes mellitus classes B through R complicating , second trimester Discharge Disposition: Home Social History [...] as of this encounter Progress Notes * Justine Arce MD - 12/14/2014 2:09 PM EST Cardiology Clinic Primary OB provider: Dr. Ghada Altamirano Indication for Evaluation: maternal diabetes mellitus Patient history: I was asked by Dr. Steiner to see Spring Camacho for advice regarding cardiac risk associated with maternal diabetes mellitus. Spring is a 28 y.o. female who is currently at 25 3/7 weeks gestation based on an EDC of 03/26/15. She states that she had diet controlled type II diabetes as ateenager and was started on Metformin at 23 yo. She was started in insulin during her . She states that her preconception HbA1c level was around 6% and a recent level was reassuring as well.She denies any other complications with the . She plans to deliver at [facility]. Medications: Current Outpatient Prescriptions on File Prior to Visit Medication Sig Dispense Refill ??? insulin aspart (NOVOLOG) Solution Please inject subcutaneously 13 units in the morning and 8 units at bed. 10 mL 12 ??? insulin NPH human recomb (HUMULIN;NOVOLIN) Suspension Please inject subcutaneously 8u in the morning and 6u at bed. 10 mL 12 ??? Insulin Syringe-Needle U-100 1/2 mL 31 x 5/16 Syringe 1 Box by [facility].(Non- Drug; Combo Route) route 3 times daily. 100 Syringe PRN ??? Alcohol Swabs Pads, Medicated Apply 200 each topically 3 times daily. 200 each PRN ? ? VITS W-CA,FE,FA,<1MG, ( VITAMIN ORAL) No current facility-administered medications on file prior to visit. Past Medical History: pre-gestational diabetes Family Medical History: No known family history of congenital heart disease, other defects orgenetic syndromes. She has 2 healthy children. She also adopted a foster child. echocardiogram results: A complete echocardiogram was performed today and demonstrates a single intrauterine with levocardia, visceral situs solitus, [S,D,S] normal segmental anatomy with normal chamber dimensions and wall motion. The heart rate was 157 bpm and the AV interval was 108 ms. There is a normal rhythm. The tricuspid valve appears normal. There is no evidence of tricuspid insufficiency. The mitral valve appears normal. There is no evidence of mitral regurgitation. Qualitatively, there is normal biventricular size and shortening. There is no pulmonary stenosis or insufficiency. There is no aortic stenosis or insufficiency. There is no evidence of coarctation of the aorta. There is a ductus arteriosus with nonrestricted right to left flow. There is a moderate size foramen ovale with right to left flow. There is no evidence of a VSD. There is no evidence of pericardial effusion. ??? There are normal umbilical artery and umbilical vein flow patterns. There are normal flow patterns in the MCA and ductus venosus. See full report for further details. Diagnosis: 28 y.o. female at 25 3/7 weeks gestation Maternal insulin dependent diabetes mellitus No evidence of a cardiac abnormality on imaging today Recommendation: ? I have reviewed normal cardiac anatomy with Spring and relayed that I see no evidence of a major structural cardiac abnormality on my imaging today. We have reviewed the cardiac complications which are associated with a maternal history of diabetes. These complications include an increased risk of structural heart defects in 25 out of 1000 infants (risk is 8 in 1000 in the general population) as well as biventricular hypertrophy which can arise in approximately 25-30% of cases. This is usually a transient disorder which resolves over the first 6 months of life, however in rare cases may cause hemodynamic compromise after . ??? I have also relayed that echocardiography may not be able to detect certain septal defects, coarctation of the aorta, or subtle valve abnormalities, nor can it predict the persistence of structures related to circulation such as a patent foramen ovale or a patent ductus arteriosus. Therefore, if there is any suspicion of a cardiac abnormality after , further evaluation would be warranted. Otherwise no specific Cardiology follow up for the child is needed. ??? Spring does not require further follow up in our clinic unless additional concerns arise. I appreciate the opportunity to participate in the care of this patient. Please feel free to contact me for any further questions or concerns. 15 of 15 minutes were spent with the patient in counseling to discuss normal cardiac anatomy and physiology, review of today's echocardiogram results and review of those findings which can and cannot be prenatally detected as described above. documented in this encounter Plan of Treatment Not on file documented as of this encounter Visit Diagnoses Diagnosis Maternal diabetes mellitus classes B through R complicating , second trimester documented in this encounter Care Teams Science Editor Relationship Specialty Start Date End Date Keyona Guevara MD [address] [place] [address] PCP - General 10/16/10 12/11/18 documented as of this encounter
--- OUTSIDE RECORDS SUMMARY | 2024-07-01 22:40 | XMS_ITS | Encounter Summary ---
Author Organization [facility] [place] [address] Care Team Providers Care Dance Historian Name Role Phone Keyona Guevara MD Primary Care Provider [phone] Encounter Details Date Type Department Care Team (Latest Contact Info) Description 10/31/2014 12:39 PM EST - 10/31/2014 11:59 PM [facility] En[place] [address] Abnormal glucose complicating Social History Tobacco Use Types Packs/Day Years [...] morning and 6u at bed. 10 mL 10/17/2014 03/04/2015 Insulin Syringe-Needle U-100 1/2 mL 31 x 5/16 SyringeIndications:A bnormal glucose complicating 1 Box by Misc.(Non-Drug; Combo Route) route 3 times daily. 100 Syringe PRN 10/17/2014 03/04/2015 Alcohol Swabs Pads, MedicatedIndications :Abnormal glucose complicating Apply 200 each topically 3 times daily. 200 each PRN 10/17/2014 12/11/2017 VITS W-CA,FE,FA,<1MG, ( VITAMIN ORAL) 10/11/2010 12/11/2017 documented as of this encounter Plan of Treatment Not on file documented as of this encounter Procedures Procedure Name Priority Date/Time Associated Diagnosis Comments US OB DETAILED MORPHOLOGY Routine 10/31/2014 2:03 PM EST Abnormal glucose complicating documented in this encounter Results * US OB Targeted Morphology (10/31/2014 2:03 PM EST) Anatomical Region Laterality Modality Pelvis, Abdomen Ultrasound 10/31/2014 2:03 PM EST Narrative 10/31/2014 6:51 PM EST OBSTETRICS REPORT ?(Signed Final 10/31/2014 06:50 ? pm) Patient Info ID #: ? [id number] ?: ??[birth year] (28 yrs)(F) Name: ? MARTINEZ CAMACHO ?Visit Date: 10/31/2014 01:56 pm Performed By Performed By: ?Breann Graves RDMS Attending: ? Reena FOY, Karolyn Botello Referred By: ? E SUHAIL STEINER MD Service(s) Provided ??[facility] - Targeted Morphology - Genetics - ? [id number] ??[id number] Indications ??morphology, GDM A2;MFM TO READ Evaluation [...] Tract: ?Visualized L Outflow Tract: ?Visualized Cardiac Resaca: ? Visualized Diaphragm: ?Visualized Abdomen Ventral Wall: [...] 10/31/2014 06:50 pm) Patient Info ID #: [id number] : [id number] (28 yrs)(F) Name: MARTINEZ CAMACHO Visit Date: 10/31/2014 01:56 pm Performed By Performed By: Breann Graves RDMS Attending: Karolyn Valles MD Referred By: Schuyler STEINER MD Service(s) Provided [facility] - Targeted Morphology - Genetics - [id number] Indications morphology, GDM A2;MFM TO READ Evaluation Num Of Fetuses: 1 [...] Tract: Visualized L Outflow Tract: Visualized Cardiac Resaca: Visualized Diaphragm: Visualized Abdomen Ventral Wall: Visualized [...] 06:50 pm E Suhail Steiner MD IMG US OB ORDERAB LES documented in this encounter Visit Diagnoses Diagnosis Abnormal glucose complicating Abnormal maternal glucose tolerance, complicating , childbirth, or the puerperium, unspecified as to episode of care documented in this encounter Care Teams Dance Historian Relationship Specialty Start Date End Date Keyona Guevara MD [facility] [address] [place] [address] PCP - General 10/16/10 12/11/18 documented as of this encounter
--- OUTSIDE RECORDS SUMMARY | 2024-07-01 22:40 | XMS_ITS | Encounter Summary ---
Author Organization [facility] [place] [address] Care Team Providers Care Field Evidence Technician Name Role Phone Keyona Guevara MD Primary Care Provider [phone] Reason for Visit * Reason Comments Routine Visit Encounter Details Date Type Department Care Team (Latest Contact Info) Description 01/02/2015 2:00 PM EST Routine Obstetrics [place] [address] CLINIC, Karolyn Phillips MD [facility] DR OBSTETRICS [place] [address] GA: [id number] Discharge Disposition: Home Social History Tobacco Use [...] Sign Reading Time Taken Comments Blood Pressure 118/64 01/02/2015 2:05 PM EST Pulse - - Temperature - - Respiratory Rate - - Oxygen Saturation - - Inhaled Oxygen Concentration - - Weight 96.2 kg (212 lb) 01/02/2015 2:05 PM EST Height - - Body Mass Index 33.27 10/31/2014 7:27 PM EST documented in this encounter Progress Notes * Karolyn Valles MD - 01/02/2015 2:13 PM EST Feels well. Denies bleeding, leaking of fluid, pain or contractions. Good movement Insulin AM 14 NPH 8 novolog Dinner 16 novolog WILL CHANGE TO 18 HS NPH 10 CBC today RTC 2 weeks and start NST's documented in this encounter Plan of Treatment Not on file documented as of this encounter Visit Diagnoses Diagnosis Supervision of high risk in third trimester Unspecified high-risk History of gestational diabetes in prior , currently , third trimester documented in this encounter Care Teams Field Evidence Technician Relationship Specialty Start Date End Date Keyona Guevara MD [address] [place] [address] [address] [place] [address] PCP - General 10/16/10 12/11/18 documented as of this encounter
== END 2024-07-01 22:35 | disposition home or self-care (01) ==
LOC: LBN 22:34
PROVIDERS: Visit Provider Nurse Practitioner Family
DX: Z00.00 Encounter for general adult medical examination without abnormal findings (principal)
CPT/HCPCS: 80053; 80061; 82306; 82607; 83036; 84443; 85025